=== PATIENT | female | born 1935 | race Caucasian/White ===

== ENCOUNTER 2020-01-22 12:19 | Outpatient (CLI) | payer MEDICARE, SELFPAY ==
[2020-01-22 13:19] LABS: Basophils Absolute Auto 0.1 K/mm3 (0.0-0.1); Basophils Percent Auto 0.9 % (0.2-1.2); Eosinophils Absolute Auto 0.7 K/mm3 (0-0.3); Eosinophils Percent Auto 9.6 % (0-4.4); Hematocrit 32.1 % (37.0-47.0); Hemoglobin 9.9 g/dL (12.0-15.0); Immature Granulocyte Absolute 0.03 K/mm3 (0.00-0.031); Immature Granulocyte Percent A 0.4 % (0-0.5); Lymphocytes Absolute Auto 1.42 K/mm3 (0.9-3.2); Lymphocytes Percent Auto 19.1 % (18.3-44.2); Mean Corpuscular HGB Conc 30.8 g/dl (32-36); Mean Corpuscular Hemoglobin 20.8 pg (26-34); Mean Corpuscular Volume 67.4 fl (80-100); Mean Platelet Volume 11.2 fl (7.4-10.4); Monocytes Absolute Auto 0.6 K/mm3 (0.1-0.6); Monocytes Percent Auto 7.9 % (2.6-8.5); Neutrophils Absolute Auto 4.6 K/mm3 (1.3-6.7); Neutrophils Percent Auto 62.1 % (45.5-73.1); Platelet Count Result 407 k/mm3 (150-375); Red Blood Count 4.76 M/mm3 (4.2-5.4); Red Cell Distribution Width 15.2 % (11.5-14.5); White Blood Count 7.4 K/mm3 (4.5-10.0)
[2020-01-22 13:32] LABS: Albumin Level 4.2 g/dL (3.5-5.1); Alkaline Phosphatase 100 U/L (38-126); Anion Gap 6 mmol/L (8-16); Aspartate Amino Transferase 15 U/L (14-36); Bilirubin,Total 1.5 mg/dL (0.2-1.3); Blood Urea Nitrogen 22 mg/dL (7-17); Calcium 9.1 mg/dL (8.4-10.2); Carbon Dioxide 28 mmol/L (22-30); Chloride 102 mmol/L (98-107); Cholesterol 173 mg/dL (0-200); Estimated Glomerular Filt Rate > 60; Glucose 101 mg/dL (65-105); HDL Direct 55 mg/dL; Potassium 4.1 mmol/L (3.4-5.0); Sodium 136 mmol/L (137-145); Triglycerides 81 mg/dL (<150)
[2020-01-22 13:40] LABS: Alanine Aminotransferase < 4 U/L (4-35)
[2020-01-22 13:51] LABS: LDL Cholesterol Direct 87 mg/dL
== END 2020-01-22 12:20 | disposition home or self-care (01) ==
PROVIDERS: PCP Internal Medicine; Visit Provider Clinical Nurse Specialist
DX: I10 Essential (primary) hypertension (principal)
CPT/HCPCS: 36415; 80053; 80061; 85025

== ENCOUNTER 2020-06-09 10:24 | Outpatient (CLI) | payer MEDICARE, SELFPAY ==
[2020-06-09 10:45] LABS: Basophils Absolute Auto 0.1 K/mm3 (0.0-0.1); Basophils Percent Auto 0.7 % (0.2-1.2); Eosinophils Absolute Auto 0.7 K/mm3 (0-0.3); Eosinophils Percent Auto 10.1 % (0-4.4); Hematocrit 32.1 % (37.0-47.0); Hemoglobin 10.1 g/dL (12.0-15.0); Immature Granulocyte Absolute 0.03 K/mm3 (0.00-0.031); Immature Granulocyte Percent A 0.4 % (0-0.5); Lymphocytes Absolute Auto 1.52 K/mm3 (0.9-3.2); Mean Corpuscular HGB Conc 31.5 g/dl (32-36); Mean Corpuscular Hemoglobin 21.1 pg (26-34); Mean Corpuscular Volume 67.2 fl (80-100); Mean Platelet Volume 9.9 fl (7.4-10.4); Monocytes Absolute Auto 0.5 K/mm3 (0.1-0.6); Neutrophils Absolute Auto 4.4 K/mm3 (1.3-6.7); Neutrophils Percent Auto 60.8 % (45.5-73.1); Platelet Count Result 370 k/mm3 (150-375); Red Blood Count 4.78 M/mm3 (4.2-5.4); Red Cell Distribution Width 15.5 % (11.5-14.5); White Blood Count 7.3 K/mm3 (4.5-10.0)
[2020-06-09 10:54] LABS: Albumin Level 3.8 g/dL (3.5-5.1); Alkaline Phosphatase 94 U/L (38-126); Anion Gap 8 mmol/L (8-16); Aspartate Amino Transferase 16 U/L (14-36); Bilirubin,Total 1.6 mg/dL (0.2-1.3); Blood Urea Nitrogen 19 mg/dL (7-17); Calcium 8.7 mg/dL (8.4-10.2); Carbon Dioxide 28 mmol/L (22-30); Chloride 101 mmol/L (98-107); Cholesterol 167 mg/dL (0-200); Estimated Glomerular Filt Rate > 60; Glucose 100 mg/dL (65-105); HDL Direct 61 mg/dL; Sodium 137 mmol/L (137-145); Triglycerides 73 mg/dL (<150)
[2020-06-09 10:55] LABS: Alanine Aminotransferase < 6 U/L (4-35)
[2020-06-09 11:05] LABS: LDL Cholesterol Direct 78 mg/dL
== END 2020-06-09 10:25 | disposition home or self-care (01) ==
LOC: ANHLAB 10:26
PROVIDERS: PCP Internal Medicine; Visit Provider Clinical Nurse Specialist
DX: I10 Essential (primary) hypertension (principal)
CPT/HCPCS: 36415; 80053; 80061; 85025

== ENCOUNTER 2020-12-14 12:58 | Outpatient (CLI) | payer MEDICARE, SELFPAY | END 2020-12-14 12:59 | disposition home or self-care (01) | PROVIDERS: PCP Internal Medicine; Visit Provider Internal Medicine | DX: H90.3 Sensorineural hearing loss, bilateral (principal) | CPT/HCPCS: 92557; 92567 ==

== ENCOUNTER 2021-07-07 09:28 | Outpatient (CLI) | payer MEDICARE, SELFPAY ==
[2021-07-07 10:26] LABS: Basophils Absolute Auto 0.1 K/mm3 (0.0-0.1); Basophils Percent Auto 1.2 % (0.2-1.2); Eosinophils Absolute Auto 1.6 K/mm3 (0-0.3); Eosinophils Percent Auto 21.8 % (0-4.4); Hematocrit 34.2 % (37.0-47.0); Hemoglobin 10.6 g/dL (12.0-15.0); Immature Granulocyte Absolute 0.02 K/mm3 (0.00-0.031); Immature Granulocyte Percent A 0.3 % (0-0.5); Lymphocytes Absolute Auto 1.77 K/mm3 (0.9-3.2); Lymphocytes Percent Auto 23.8 % (18.3-44.2); Mean Corpuscular Hemoglobin 21.4 pg (26-34); Mean Corpuscular Volume 69.1 fl (80-100); Mean Platelet Volume 10.6 fl (7.4-10.4); Monocytes Absolute Auto 0.5 K/mm3 (0.1-0.6); Monocytes Percent Auto 6.7 % (2.6-8.5); Neutrophils Absolute Auto 3.4 K/mm3 (1.3-6.7); Neutrophils Percent Auto 46.2 % (45.5-73.1); Platelet Count Result 396 k/mm3 (150-375); Red Blood Count 4.95 M/mm3 (4.2-5.4); Red Cell Distribution Width 15.7 % (11.5-14.5); White Blood Count 7.4 K/mm3 (4.5-10.0)
[2021-07-07 10:39] LABS: Albumin Level 4.1 g/dL (3.5-5.1); Alkaline Phosphatase 75 U/L (38-126); Anion Gap 7 mmol/L (8-16); Aspartate Amino Transferase 23 U/L (14-36); Bilirubin,Total 1.3 mg/dL (0.2-1.3); Blood Urea Nitrogen 29 mg/dL (7-17); Calcium 8.8 mg/dL (8.4-10.2); Carbon Dioxide 27 mmol/L (22-30); Chloride 107 mmol/L (98-107); Cholesterol 181 mg/dL (0-200); Estimated Glomerular Filt Rate > 60; Glucose 97 mg/dL (65-110); HDL Direct 59 mg/dL; Potassium 4.1 mmol/L (3.4-5.0); Sodium 141 mmol/L (137-145); Triglycerides 68 mg/dL (<150)
[2021-07-07 10:50] LABS: LDL Cholesterol Direct 86 mg/dL
[2021-07-07 11:20] LABS: Alanine Aminotransferase < 6 U/L (4-35)
[2021-07-07 11:26] LABS: Vitamin D 25 Hydroxy 34.7 ng/mL
== END 2021-07-07 09:29 | disposition home or self-care (01) ==
PROVIDERS: PCP Internal Medicine; Visit Provider Nurse Practitioner
DX: E55.9 Vitamin D deficiency, unspecified (principal); I10 Essential (primary) hypertension; G20 Parkinson's disease
CPT/HCPCS: 36415; 80053; 80061; 82306; 85025

== ENCOUNTER 2021-08-30 11:53 | Emergency (ER) | payer MEDICARE, SELFPAY ==
[2021-08-30] VITALS (7 sets, daily range): BP systolic 145–192; BP diastolic 74–101; PULSE 75–97; RESP 19–23; TEMP 36.9; O2SAT 99
--- NOTE | ~2021-08-30 | XR_ITS ---
EXAMINATION: XR chest 1V portable DATE: 08/30/2021 12:47 INDICATION: Cough and weakness. TECHNIQUE: A single frontal view of the chest was obtained. COMPARISON: Chest single view 09/29/2018, CT abdomen and pelvis 09/29/2018 FINDINGS: There is mild atelectasis in left lower lung zone. No pleural effusion or pneumothorax. The heart size is normal. IMPRESSION: 1. Mild atelectasis in left lower lung zone. Reviewed, dictated and finalized at location B.
--- NOTE | ~2021-08-30 | CT_ITS ---
EXAMINATION: CT brain wo con DATE: 08/30/2021 13:15 INDICATION: Dizziness. TECHNIQUE: Computed tomography (CT) of the head was performed without intravenous contrast. The mA wa s adjusted according to patient size. Iterative reconstruction technique was employed. The dose-lengt h product was 605.33 mGy-cm. COMPARISON: None FINDINGS: There are scattered areas of low attenuation in the cerebral white matter. There is no intr acranial hemorrhage, acute infarction, or abnormal intracranial mass lesion. The ventricles are hansel l in size. There is mild mucosal thickening in the ethmoid sinuses. There is a small left mastoid eff usion. There are likely changes of left ocular lens replacement surgery. IMPRESSION: 1. Moderate nonspecific cerebral white matter disease, which likely represents chronic small vessel i schemic disease. Reviewed, dictated and finalized at location B. IMPRESSION: 1. Moderate nonspecific cerebral white matter disease, which likely represents chronic small vessel ischemic disease.
--- NOTE | 2021-08-30 12:09 | ECG_ITS ---
Measurements Intervals [place] Rate: 84 P: DC: 0 QRS: -4 QRSD: 78 T: 31 QT: 369 QTc: 438 Interpretive Statements ATRIAL FIBRILLATION MODERATE VOLTAGE CRITERIA FOR LVH, CONSIDER NORMAL VARIANT [MEETS CRITERIA IN ONE OF: R(aVL), S(V1), R(V5), R(V5/V6)+S(V1)] NONSPECIFIC ST & T-WAVE ABNORMALITY ABNORMAL RHYTHM ECG NO PREVIOUS ECG AVAILABLE FOR COMPARISON Electronically Signed On 08-30-2021 14:59:25 CDT by Bakari Lott M.D.
[2021-08-30] MEDS: SODIUM CHLORIDE 0.9% IV 1,000 ML 999 ML IV CONT (12:30)
--- NOTE | 2021-08-30 12:31 | ED.WEAKNESS ---
HPI - Weakness General Chief complaint: Weakness Stated complaint: weak, lightheaded, dizzy Source: RN notes reviewed History of Present Illness HPI Narrative: Patient presents emergency department from home for weakness. Patient states that she has been having intermittent weakness and dizziness over the past 1 week she is scheduled to have a appoint with her PCP this morning fell 2 weeks ago. Per the patient she feels fine at this time but her daughter was the one who called the ambulance and felt that she needed to come for evaluation currently seen in bed she denies any dizziness or weakness she denies any chest pain shortness of breath abdominal pain nausea vomiting denies any recent illness Related Data Allergies Allergy/AdvReac Type Severity Reaction Status Date / Time epinephrine Allergy Unknown itching Verified 08/30/21 12:04 Sulfa (Sulfonamide Allergy Unknown Hives Verified 08/30/21 12:04 Antibiotics) Review of Systems Review of Systems: Gen.: Denies fevers or chills Eyes: Denies eye pain or visual change ENT: Denies congestion Respiratory: Denies shortness of breath or cough CV: Denies chest pain or palpitations GI: Denies abdominal pain nausea, emesis or diarrhea Musculoskeletal: Denies back pain or muscle pain Neuro: See HPI Skin: Denies rash Except as documented, all other systems reviewed and negative [facility] Past Medical History Medical History Hypertension Parkinson disease Thalassemia Surgical History Surgical History H/O colectomy H/O: hysterectomy Hx of appendectomy Knee joint replacement status Family History Family History Father Family history of malignant neoplasm Mother Family history of malignant neoplasm of breast in first degree relative Grandparent Diabetes mellitus Social History Social History Smoking status: Never smoker Alcohol intake: never Substance use: never Exam Narrative: APPEARANCE: No acute distress, nontoxic, resting in bed EYES: EOMI, PERRL HEENT: Normocephalic, atraumatic, OMM RESPIRATORY: No respiratory distress Clear to auscultation bilaterally with no rhonchi wheezing or rales. CARDIOVASCULAR: Regular rate and rhythm without murmurs rubs or gallops. ABDOMINAL: Soft, nontender, nondistended, no rebound or guarding MUSCULOSKELETAl: Moves all extremities. No clubbing, cyanosis or edema. NEURO: Awake and alert x 3. Following commands, speech normal, no focal deficits, muscle strength 5 out of 5 bilateral upper and lower extremities SKIN:: Warm, dry. No rashes lesions or abrasions PSYCHIATRIC: Normal affect/mood, Course Course Emergency Course: Patient will get up and walk to the restroom with no difficulty states she feels fine at this time Discussed with patient results of workup and diagnosis. Discussed need for follow-up with primary care, proper use of medication, and reasons to return to the emergency department. Patient understands and agrees to current treatment plan Vital Signs Vital signs: Vital Signs Temperature 98.4 F 08/30/21 11:52 Pulse Rate 83 08/30/21 11:52 Respiratory Rate 20 08/30/21 11:52 Blood Pressure 192/101 H 08/30/21 11:52 Pulse Oximetry 99 08/30/21 11:52 Temperature 98.4 F 08/30/21 11:52 Pulse Rate 97 08/30/21 13:30 Respiratory Rate 23 H 08/30/21 13:01 Blood Pressure 145/95 H 08/30/21 13:30 Pulse Oximetry 99 08/30/21 13:01 MDM - Weakness Lab Data Result diagrams: 08/30/21 12:23 08/30/21 12:23 Labs: Lab Results 08/30/21 08/30/21 08/30/21 Range/Units 12:15 12:23 12:23 WBC 6.4 (4.5-10.0) K/mm3 RBC 5.00 (4.2-5.4) M/mm3 Hgb 10.7 L (12.0-15.0) g/dL Hct 33.3 L (37.0-47.0) % MCV 66.6 L (80-100) fl MCH 21.4 L (26-3
[2021-08-30 12:34] LABS: Appearance Urine Clear (Clear); Bilirubin Urine Negative (Negative); Blood Urine Negative (Negative); Color Urine Yellow (Yellow); Glucose Urine UA Negative (Negative); Ketones Urine Negative (Negative); Leukocyte Esterase Ur Negative LEU/UL (Negative); Nitrate Urine Negative (Negative); Protein Urine Negative (Negative); Specific Grav Ur 1.015 (1.001-1.035); Urobilinogen Urine 0.2 mg/dL (<2.0)
[2021-08-30 12:36] LABS: Basophils Absolute Auto 0.1 K/mm3 (0.0-0.1); Basophils Percent Auto 0.8 % (0.2-1.2); Eosinophils Absolute Auto 0.3 K/mm3 (0-0.3); Eosinophils Percent Auto 4.3 % (0-4.4); Hematocrit 33.3 % (37.0-47.0); Hemoglobin 10.7 g/dL (12.0-15.0); Immature Granulocyte Absolute 0.02 K/mm3 (0.00-0.031); Immature Granulocyte Percent A 0.3 % (0-0.5); Lymphocytes Absolute Auto 1.25 K/mm3 (0.9-3.2); Lymphocytes Percent Auto 19.4 % (18.3-44.2); Mean Corpuscular HGB Conc 32.1 g/dl (32-36); Mean Corpuscular Hemoglobin 21.4 pg (26-34); Mean Corpuscular Volume 66.6 fl (80-100); Mean Platelet Volume 10.4 fl (7.4-10.4); Monocytes Absolute Auto 0.4 K/mm3 (0.1-0.6); Monocytes Percent Auto 6.7 % (2.6-8.5); Neutrophils Absolute Auto 4.4 K/mm3 (1.3-6.7); Neutrophils Percent Auto 68.5 % (45.5-73.1); Platelet Count Result 438 k/mm3 (150-375); Red Cell Distribution Width 15.9 % (11.5-14.5); White Blood Count 6.4 K/mm3 (4.5-10.0)
[2021-08-30 12:39] LABS: Alanine Aminotransferase 22 U/L (4-35); Albumin Level 4.3 g/dL (3.5-5.1); Alkaline Phosphatase 79 U/L (38-126); Anion Gap 5 mmol/L (8-16); Aspartate Amino Transferase 28 U/L (14-36); Bilirubin,Total 1.8 mg/dL (0.2-1.3); Blood Urea Nitrogen 22 mg/dL (7-17); Calcium 9.2 mg/dL (8.4-10.2); Carbon Dioxide 28 mmol/L (22-30); Chloride 105 mmol/L (98-107); Estimated CRCL calculation 39 ml/min; Estimated Glomerular Filt Rate > 60; Glucose 108 mg/dL (65-110); Potassium 4.1 mmol/L (3.4-5.0); Sodium 138 mmol/L (137-145)
[2021-08-30 12:40] LABS: Add Urine Microscopic? NO
--- NOTE | 2021-08-30 13:34 | PC.NURSE ---
Pt ambulatory to the bathroom with no difficulty
--- NOTE | 2021-08-30 13:55 | PC.NURSE ---
Attempted to call daughter to come and pick her up. No answer. left message
== END 2021-08-30 14:28 | disposition home or self-care (01) ==
PROVIDERS: Emergency Provider Emergency Medicine; PCP Internal Medicine
DX: R42 Dizziness and giddiness (principal); I10 Essential (primary) hypertension; G20 Parkinson's disease; Z96.659 Presence of unspecified artificial knee joint; R90.82 White matter disease, unspecified; I48.91 Unspecified atrial fibrillation; R94.31 Abnormal electrocardiogram [ECG] [EKG]
CPT/HCPCS: 36415; 70450; 71045; 80053; 81003; 85025; 93005; 96360; 99284; J7030

== ENCOUNTER 2023-11-27 14:20 | Outpatient (CLI) | payer MEDICARE, SELFPAY ==
[2023-11-27 14:59] LABS: Basophils Absolute Auto 0.1 K/mm3 (0.0-0.1); Basophils Percent Auto 0.8 % (0.2-1.2); Eosinophils Absolute Auto 0.7 K/mm3 (0-0.3); Eosinophils Percent Auto 9.1 % (0-4.4); Hematocrit 34.6 % (37.0-47.0); Hemoglobin 10.6 g/dL (12.0-15.0); Immature Granulocyte Absolute 0.02 K/mm3 (0.00-0.031); Immature Granulocyte Percent A 0.3 % (0-0.5); Lymphocytes Absolute Auto 1.53 K/mm3 (0.9-3.2); Lymphocytes Percent Auto 21.2 % (18.3-44.2); Mean Corpuscular HGB Conc 30.6 g/dl (32-36); Mean Corpuscular Hemoglobin 21.3 pg (26-34); Mean Corpuscular Volume 69.5 fl (80-100); Mean Platelet Volume 10.5 fl (7.4-10.4); Monocytes Absolute Auto 0.6 K/mm3 (0.1-0.6); Monocytes Percent Auto 8.2 % (2.6-8.5); Neutrophils Absolute Auto 4.4 K/mm3 (1.3-6.7); Neutrophils Percent Auto 60.4 % (45.5-73.1); Platelet Count Result 318 k/mm3 (150-375); Red Blood Count 4.98 M/mm3 (4.2-5.4); Red Cell Distribution Width 15.8 % (11.5-14.5); White Blood Count 7.2 K/mm3 (4.5-10.0)
[2023-11-27 15:23] LABS: Alkaline Phosphatase 78 U/L (38-126); Anion Gap 8 mmol/L (4-12); Aspartate Amino Transferase 24 U/L (14-36); Bilirubin,Total 2.2 mg/dL (0.2-1.3); Blood Urea Nitrogen 24 mg/dL (7-17); Calcium 9.3 mg/dL (8.4-10.2); Carbon Dioxide 29 mmol/L (22-30); Chloride 102 mmol/L (98-107); Estimated Glomerular Filt Rate > 60; Glucose 132 mg/dL (65-110); Potassium 3.7 mmol/L (3.4-5.0); Sodium 139 mmol/L (137-145)
[2023-11-27 15:29] LABS: Alanine Aminotransferase < 6 U/L (6-35)
[2023-11-27 16:18] LABS: Platelet Estimate Adequate (Adequate)
[2023-11-27 16:19] LABS: Schistocytes None Seen
[2023-11-27 16:20] LABS: Anisocytosis 2+; Microcytosis 1+ (NORMAL)
[2023-11-28 04:00] LABS: Folic Acid 13.7 ng/mL (2.76->20)
== END 2023-11-27 14:21 | disposition home or self-care (01) ==
LOC: ANHGOSHLAB 14:22
PROVIDERS: PCP Internal Medicine; Visit Provider Nurse Practitioner
DX: Z13.29 Encounter for screening for other suspected endocrine disorder (principal); R41.3 Other amnesia
CPT/HCPCS: 36415; 80053; 82607; 82746; 84443; 85025

== ENCOUNTER 2024-03-27 14:58 | Outpatient (CLI) | payer MEDICARE, SELFPAY ==
[2024-03-27 19:43] LABS: Basophils Absolute Auto 0.1 K/mm3 (0.0-0.1); Basophils Percent Auto 0.6 % (0.2-1.2); Eosinophils Absolute Auto 0.5 K/mm3 (0-0.3); Eosinophils Percent Auto 6.1 % (0-4.4); Hematocrit 32.5 % (37.0-47.0); Hemoglobin 10.2 g/dL (12.0-15.0); Immature Granulocyte Absolute 0.03 K/mm3 (0.00-0.031); Immature Granulocyte Percent A 0.4 % (0-0.5); Immature Platelet Fraction Pct 5.5 % (0.9-11.2); Lymphocytes Absolute Auto 1.08 K/mm3 (0.9-3.2); Lymphocytes Percent Auto 13.6 % (18.3-44.2); Mean Corpuscular HGB Conc 31.4 g/dl (32-36); Mean Corpuscular Hemoglobin 21.7 pg (26-34); Monocytes Absolute Auto 0.5 K/mm3 (0.1-0.6); Monocytes Percent Auto 6.7 % (2.6-8.5); Neutrophils Absolute Auto 5.8 K/mm3 (1.3-6.7); Neutrophils Percent Auto 72.6 % (45.5-73.1); Platelet Count Result 271 k/mm3 (150-375); Red Blood Count 4.71 M/mm3 (4.2-5.4); White Blood Count 7.9 K/mm3 (4.5-10.0)
[2024-03-27 19:51] LABS: Albumin Level 3.6 g/dL (3.5-5.1); Alkaline Phosphatase 120 U/L (38-126); Anion Gap 5 mmol/L (4-12); Aspartate Amino Transferase 20 U/L (14-36); Bilirubin,Total 2.4 mg/dL (0.2-1.3); Blood Urea Nitrogen 20 mg/dL (7-17); Calcium 8.9 mg/dL (8.4-10.2); Carbon Dioxide 31 mmol/L (22-30); Chloride 100 mmol/L (98-107); Estimated Glomerular Filt Rate > 60; Glucose 119 mg/dL (65-110); Potassium 3.8 mmol/L (3.4-5.0); Sodium 136 mmol/L (137-145)
[2024-03-27 20:14] LABS: Alanine Aminotransferase < 6 U/L (6-35)
[2024-03-27 20:20] LABS: Platelet Estimate Adequate (Adequate)
[2024-03-27 20:21] LABS: Anisocytosis 2+; Schistocytes 2+
[2024-03-27 20:22] LABS: Microcytosis 1+ (NORMAL)
[2024-03-27 20:23] LABS: Acanthocytes 1+
[2024-03-27 20:24] LABS: Hypochromasia 1+
[2024-03-27 20:56] LABS: Add Urine Microscopic? YES; Appearance Urine Clear (Clear); Bacteria Urine None Seen /hpf; Bilirubin Urine 1+ (Negative); Blood Urine Negative (Negative); Color Urine Dark Yellow (Yellow); Glucose Urine UA Negative (Negative); Ketones Urine Trace mg/dL (Negative); Leukocyte Esterase Ur 1+ LEU/UL (Negative); Need Manual Microscopic Reviewed; Nitrate Urine Negative (Negative); Non Pathogenic Casts 0-2; Protein Urine 1+ mg/dL (Negative); RBC Urine 0-2 /hpf (0-2); Specific Grav Ur 1.034 (1.001-1.035); Squamous Epithelial Cell Urine None Seen /hpf (Few)
== END 2024-03-27 14:59 | disposition home or self-care (01) ==
LOC: ANHGOSHLAB 14:59
PROVIDERS: PCP Internal Medicine; Visit Provider Nurse Practitioner
DX: R63.4 Abnormal weight loss (principal)
CPT/HCPCS: 36415; 80053; 81001; 85025; 85055

== ENCOUNTER 2024-03-27 15:15 | Outpatient (CLI) | payer MEDICARE, SELFPAY ==
--- NOTE | ~2024-03-27 | XR_ITS ---
CHEST RADIOGRAPH, PA AND LATERAL CLINICAL HISTORY: R63.4 - Abnormal weight loss . COMPARISON: 08/30/2021 TECHNIQUE: PA and lateral views of the chest. FINDINGS The cardiomediastinal silhouette is unremarkable. The lungs are clear. Incidental notation is made of pectus excavatum. Remaining visualized osseous structures and soft tissues are otherwise unremarkable. IMPRESSION: No focal infiltrate or effusion. Reviewed, dictated and finalized at location A. H BOOKER
== END 2024-03-27 15:16 | disposition home or self-care (01) ==
LOC: GOSHIMG 15:16
PROVIDERS: PCP Internal Medicine; Visit Provider Nurse Practitioner
DX: R63.4 Abnormal weight loss (principal)
CPT/HCPCS: 71046

== ENCOUNTER 2024-06-14 14:36 | Outpatient (CLI) | payer MEDICARE, SELFPAY ==
[2024-06-14 19:28] LABS: Alanine Aminotransferase 6 U/L (6-35); Albumin Level 3.6 g/dL (3.5-5.1); Alkaline Phosphatase 104 U/L (38-126); Anion Gap 10 mmol/L (4-12); Aspartate Amino Transferase 14 U/L (14-36); Bilirubin,Total 3.1 mg/dL (0.2-1.3); Blood Urea Nitrogen 24 mg/dL (7-17); Calcium 8.8 mg/dL (8.4-10.2); Carbon Dioxide 27 mmol/L (22-30); Chloride 104 mmol/L (98-107); Estimated Glomerular Filt Rate > 60; Glucose 104 mg/dL (65-110); Potassium 4.1 mmol/L (3.4-5.0); Sodium 141 mmol/L (137-145)
[2024-06-14 19:38] LABS: NT Pro B Type Natriuretic Pept 5840 pg/mL (19.9-100)
== END 2024-06-14 14:37 | disposition home or self-care (01) ==
LOC: ANHGOSHLAB 14:36
PROVIDERS: PCP Internal Medicine; Visit Provider Student in an Organized Health Care Education/Training Program
DX: M79.89 Other specified soft tissue disorders (principal)
CPT/HCPCS: 36415; 80053; 83880

== ENCOUNTER 2024-06-28 13:36 | Outpatient (CLI) | payer MEDICARE, MEDICAID, SELFPAY ==
--- NOTE | 2024-06-28 13:49 | ECHO_ITS ---
Patient Info Name: Haven Mckoy Age: 88 years : 1935 Gender: Female Ht: 64 in Wt: 137 lbs BSA: 1.68 m2 HR: 118 bpm BP: 136 / 85 mmHg Technical Quality: Good Exam Date: 06/28/2024 1:59 PM Exam Location: Echo Lab Patient Status: Outpatient Admit Date: 06/28/2024 Staff Ordering Physician: Brock Horne APRN Cultural Anthropology Professor: Kait Fuller RDCS Attending Provider: Brock Horne APRN Referring Physician: Ozzie GO; Exam Type: CA echo doppler color flow Study Info Indications R06.02 - Shortness of breath Complete two-dimensional, color flow and Doppler transthoracic echocardiogram is performed. Summary 1. Complete two-dimensional, color flow and Doppler transthoracic echocardiogram is performed. 2. Left ventricular chamber dimension is mildly enlarged. 3. Left ventricular systolic function is preserved, estimated at 50-55%. 4. The left ventricular diastolic function is abnormal. 5. e' .07 is abnormal suggestive diastolic dysfunction. E/e' was not measured. 6. Right ventricular systolic function is mildly reduced and with abnormal TAPSE 1.4 cm. 7. Left atrial chamber dimension is severely enlarged. 8. Right atrial chamber dimension is moderately enlarged. 9. There is mild aortic valve sclerosis. 10. There is mild aortic valve regurgitation. 11. The mitral valve has mildly calcified annulus. 12. There is moderate to severe mitral valve regurgitation. 13. There is moderate tricuspid valve regurgitation. 14. Severe pulmonary hypertension, estimated pulmonary arterial systolic pressure is 68 mmHg. 15. The aortic root size at the sinus of Valsalva is moderately dilated. 16. The prox ascending aorta size is moderately dilated. 17. Dilated inferior vena cava with >50% collapse upon inspiration consistent with elevated right atrial pressure, 10 mmHg. Left Ventricle e' .07 is abnormal suggestive diastolic dysfunction. E/e' was not measured. Left ventricular systolic function is preserved, estimated at 50-55%. Left ventricular chamber dimension is mildly enlarged. The left ventricular diastolic function is abnormal. Right Ventricle Right ventricular systolic function is mildly reduced and with abnormal TAPSE 1.4 cm. Right ventricular chamber dimension is normal. Left Atria Left atrial chamber dimension is severely enlarged. Right Atria Right atrial chamber dimension is moderately enlarged. Aortic Valve The aortic valve is trileaflet. There is mild aortic valve sclerosis. There is no aortic valve stenosis. There is mild aortic valve regurgitation. Pulmonic Valve There is no pulmonic regurgitation. Mitral Valve The mitral valve has mildly calcified annulus. There is no mitral valve stenosis. There is moderate to severe mitral valve regurgitation. Tricuspid Valve There is moderate tricuspid valve regurgitation. Severe pulmonary hypertension, estimated pulmonary arterial systolic pressure is 68 mmHg. Pericardium/Pleural There is no pericardial effusion. Inferior Vena Cava Dilated inferior vena cava with >50% collapse upon inspiration consistent with elevated right atrial pressure, 10 mmHg. Aorta The aortic root size at the sinus of Valsalva is moderately dilated. The prox ascending aorta size is moderately dilated. Left Ventricular Outflow Tract Name Value Normal LVOT 2D LVOT Diameter 2.0 cm LVOT Doppler LVOT Peak Gradient 9 mmHg LVOT Mean Gradient 4 mmHg LVOT VTI 25 cm LVOT VTI/AV VTI Ratio 1.0 LVOT Stroke Volume 74 ml LVOT CO 8.7 l/min LVOT CI 5.1 l/min/m2 Pulmonic Valve Name Value Normal RVOT Doppler RVOT Peak Gradient 1 mmHg PV Doppler PV Peak Gradient 3 mmHg Mitral Valve Name Value Normal MV Doppler MV Peak Gradient 20 mmHg MV Mean Gradient 5 mmHg MV PHT 41 ms MV Area (PHT) 5.4 cm2 4.0-5.0 MV Area (Cont Eq VTI) 2.6 cm2 MV Regurgitation Doppler MR Peak Gradient 123 mmHg Tricuspid Valve Name Value Normal TV Regurgitation Doppler TR Peak Velocity 380 cm/s TR Peak Gradient 58 mmHg Estimated PAP/RSVP RA Pressure 10 mmHg <=5 PA Systolic Pressure 68 mmHg <36 RV Systolic Pressure 68 mmHg <36 Aorta Name Value Normal Ascending Aorta Ao Root Diameter (MM) 4.4 cm Ao Root Diam Index (MM) 2.6 cm/m2 Aortic Valve Name Value Normal AV Doppler AV Peak Velocity 166 cm/s AV Peak Gradient 11 mmHg AV Mean Gradient 7 mmHg AV VTI 24 cm AV Area (Cont Eq VTI) 3.1 cm2 >=3.0 AV Area (Cont Eq Ulises) 2.7 cm2 AV Regurgitation 2D LVOT Area 3.0 cm2 AV Regurgitation Doppler AR Decel Time 575 ms AR Decel Tift 928 cm/s2 AR PHT 167 ms Ventricles Name Value Normal LV Dimensions 2D/MM IVS Diastolic Thickness (2D) 0.9 cm 0.6-1.0 LVID Diastole (2D) 6.3 cm 3.8-5.2 LVIW Diastolic Thickness (2D) 0.9 cm 0.6-0.9 LVID Systole (2D) 4.9 cm 2.2-3.5 LVOT Diameter 2.0 cm LV Mass (2D Cubed) 237.78 g 67.00-162.00 LV Mass Index (2D Cubed) 141 g/m2 43-95 Relative Wall Thickness (2D) 0.28 LV Fractional Shortening/Ejection Fraction 2D/MM LV Fractional Shortening (2D) 23 % 27-45 LV EF (2D Teicholz) 44 % 54-74 LV Diastolic Volume (4C MOD) 91 ml LV EF (4C MOD) 45 % LV Diastolic Volume (2C MOD) 138 ml LV EF (2C MOD) 48 % LV Diastolic Volume (BP MOD) 118 ml 46-106 LV Diastolic Volume Index (BP MOD) 70 ml/m2 29-61 LV Systolic Volume (BP MOD) 63 ml 14-42 LV Systolic Volume Index (BP MOD) 37 ml/m2 8-24 LV EF (BP MOD) 47 % 54-74 LV Diastolic Length (4C) 7.7 cm LV Systolic Length (4C) 7.0 cm LV Stroke Volume (4C MOD) 41 ml Atria Name Value Normal LA Dimensions LA Dimension (MM) 3.7 cm 2.7-3.8 LA Volume (4C A-L) 125 ml LA Volume (BP A-L) 132 ml RA Dimensions RA Area (4C) 24.9 cm2 <=18.0 Report Signatures
--- OUTSIDE RECORDS SUMMARY | 2024-06-28 13:53 | XMS_ITS | Clinical Summary ---
Author Organization [facility] Address [address] [place] [address] Care Team Providers Care Data Processing Auditor Name Role Phone Luis Almeida DO Primary Care Provider [phone] Allergies Active Allergy Reactions Criticality Noted Date Comments Epinephrine Unknown Medium 11/29/2022 Influenza Virus Vaccine Bivalent Itching Low Metronidazole Nausea only Low Sulfa (Sulfonamide Antibiotics) Rash Medium Medications docusate sodium (COLACE) 100 mg capsuleIndicat ions:constipat ion Take 1 capsule (100 mg total) by mouth as needed for constipation Active acetaminophen (TYLENOL) 500 mg tablet Take 1 tablet (500 mg total) by mouth every 6 (six) hours as needed for pain Active carbidopa-levo dopa (SINEMET) 25-100 mg per tabletIndicati ons:Parkinsoni sm Take 3 tabs at 8:00am, 12:00pm, and 4:00pm. 810 tablet 3 5 Active carbidopa-levo dopa CR (SINEMET CR) 50-200 mg per CR tablet Take 2 tabs at 8:00pm. 180 tablet 3 5 Active gabapentin (NEURONTIN) 100 mg capsule Take 1 capsule (100 mg total) by mouth nightly 90 capsule 3 5 026 Active mirtazapine (REMERON) 15 mg tablet Take 1 tablet (15 mg total) by mouth nightly 90 tablet 3 5 026 Active mirtazapine (REMERON) 15 mg tablet Take 1 tablet (15 mg total) by mouth nightly 90 tablet 3 2 025 Discontin ued(Reord er) gabapentin (NEURONTIN) 100 mg capsule Take 1 capsule (100 mg total) by mouth nightly 90 capsule 3 3 025 Discontin ued(Reord er) carbidopa-levo dopa (SINEMET) 25-100 mg per tabletIndicati ons:Parkinsoni sm Take 3 tabs at 8:00am, 12:00pm, and 4:00pm. 810 tablet 3 4 025 Discontin ued(Reord er) carbidopa-levo dopa CR (SINEMET CR) 50-200 mg per CR tablet Take 2 tabs at 8:00pm. 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 H/o colon cancer in distant past s/p surgery and chemotherapy (cured). H/o several non-invasive skin SCC resections. S/p excisional biopsy on 09/14/22 w/ pathology report from Dr Salcido showing positivity for melanA & SOX10 and margins positive for MIHIR. Tumor has high mitotic activity and ulceration. No invasion of angle on UBM. Repeat biopsy on 12/02/[address] Soares. Pathology with melanoma but clear margins (margins positive for MIHIR). Assessment & Plan (12/16/2022 12:36 PM CDT): 2 weeks post-op appointment. Healing well, vision and exam stable. Plan: - stop moxifloxacin drops - decrease PF to BID OS - RTC 2-3 weeks Assessment & Plan (11/04/2022 4:07 PM CDT): There is extensive pigmentation over the limbus from 12:00-9:00, with extension posteriorly ST and elevated areas at 4:00 and 2:00. Discussed complete excision with cryotherapy vs excision of elevated lesions + or - MMC vs observation alone. Daughter and patient elect for limited excision of elevated lesions followed by MMC gtts to decrease the chances of malignant transformation. Recommend MRI brain, orbits and neck w/ w/o for screening of metastatic disease. If evidence of this, may need to rethink surgical approach. Will plan on conjunctival excision with cryotherapy followed by MMC 0.02% QID OD for 1 week on, 3 weeks off. Messaged patient's PCP regarding possibility of undergoing GA if needed. Assessment & Plan (09/28/2022 2:58 PM CDT): Hx of recent excision of limbal conj tumor 09/14/22 OS and [facility] The path was read as conj melanoma OS Dr. Soares is waiting for the tissue sections to be reviewed Limbal corneal wound healed well with no ED A frond of lightly pigmented epi at 4:00 Limbus No evident feeder vessels Here to see Dr. Mcleod and to discuss about the path Will discuss with Dr. Soares about the next step (Further excision with cryo vs. IFN or MMC) Will call patient for next appointment after reviewing the path RTC 1 month, sooner if needed Assessment & Plan (09/19/2022 4:28 PM CDT): Partially mobile but pedunculated mass w/ large feeder vessels. Possibly FB reaction, not likely COLUMBA per aspect. s/p excisional biopsy on 09/14/22. Path report pending. Healing well with residual pannus at 4;00 Stop maxitrol marlyn OS RTC 1 month, sooner if needed Assessment & Plan (09/14/2022 3:20 PM CDT): Referred from Dr. Mcleod for possible excision OS Hx of possible FB to left eye The mass is partially mobile but pedunculated (not firmly attached Large feeder vessels Will excise under topical anesthesia with path exam Excision performed without difficulty Topical maxitrol marlyn QID OS RTC 3-4 days Chronic bilateral low back pain without sciatica 06/17/2020 Breast skin changes 01/29/2020 Neurogenic orthostatic hypotension 02/13/2019 Parkinson disease 04/03/2018 Assessment & Plan (06/17/2024 12:44 PM EMBEDDED FIRMWARE DEVELOPER): Mrs. Mckoy was doing well overall. She was about the same with her PD. She was in OT and PT although she did not have sessions last week. She had swelling in her legs and followed up with her PCP last week. She plan to have an echo done and is awaiting her lab results. Her EKG was fine. Recommendations Continue OT and PT Increase water intake to at least 64 oz of water a day for constipation Same levodopa IR/CR, gabapentin and mirtazapine Follow up as planned in December with Dr. Headley Fall precaution Assessment & Plan (12/08/2023 12:36 PM CDT): Mrs. Mckoy presented for a follow up. She was doing about the same overall. She was not getting any therapy. She continued to live in assisted living. She was hard of hearing and had hearing aides, but did not wear them. She could benefit from OT and PT. Recommendations Start OT/PT when ready- orders provided today Fall precaution No medication changes today Follow up in 6 months and sooner if needed Stay well hydrated Assessment & Plan (06/09/2023 1:32 PM EMBEDDED FIRMWARE DEVELOPER): Mrs. Mckoy presented for a follow up. She was with her daughter. She was doing well overall. She was better today compared to her last visit. She continued to live in assisted living. She had fair appetite and hydration. She drank protein shakes. She has had an increase in her weight from drinking the protein shakes. She used a walker to ambulate. She was hard of hearing and loss one of her hearing aids. She is scheduled to follow up next week on her hearing. She is scheduled to follow up with her utility inspector today post surgical removal of melanoma. Recommendations Follow up in 6 months No medication changes today Encouraged participation in activities at the assisted living facility NPT at next visit- she was not able to stay today due to eye appt Fall precaution Stay well hydrated Assessment & Plan (11/11/2022 2:25 PM CDT): Mr. Mckoy presented for a follow up via zoom. She was present with her daughter and son in law. She had declined over the past 2 months. She was not drinking much, poor appetite was 130 lbs and dropped to 109 lbs in 2 months), hygiene not as good, memory and thinking not as good and not really engaging. Her urine was negative for UTI. She was drinking boost. She lived at [facility] in assisted living and her daughter would find pills around. She also have malignant melanoma in her eye and plan to have a mri soon to check for metastasis. Her daughter indicated that the PCP office recommended palliative care, but they would have to set it up. I explained to her that I will send a message to our palliative care team to see if they are able to provide service since she is in a facility. We discussed the benefits of her taking her PD medications and having a conversation with the staff to due mouth checks. We also discussed that it was hard to tell if her decline is due to PD, melanoma, something else or a combination of factors. She would benefit from OT/PT. Our office will fax OT/PT orders to [facility] ATTN Alba at [phone] A message will be sent to the palliative care team on if they are able to provide services and I will follow up Scheduling will call her daughter to make appt with me in 2 months Continue to encourage hydration and food/protein shakes No medication changes today Assessment & Plan (12/11/2021 4:16 PM CDT): Ms. Haven Mckoy is a 86 y.o. female, who presents for follow-up for PD. She is worse since the last visit. Her daughter is concerned about a decline in the mobility and cognition. She had an episode of facial pain, which has resolved since. Her daughter found unused pills during the period the pain was at its worse. They are applying to have her living in an assisted living, where her medications would be organized by staff. Her daughter thinks with a pillbox, she has been a bit more compliant. She recognizes a decline in the cognition after her brother, who lived with Haven , and the concurrent social isolation related to the pandemic. We discussed the goals at this point. She should be as compliant with the medication as possible. We will start PT in the facility once she moves so that we can improve the mobility. She should also have an assessment with OT to establish strategies to minimize the changes in cognition. They will contact us when she finally moves to the facility. Plan: - Continue carbidopa-levodopa at the current dose. - Will refer her to PT and OT after transfer to assisted living. Potential medication side effects were discussed during the encounter. Assessment & Plan (09/03/2021 3:19 PM CDT): Mrs. Mckoy presented via zoom with her daughter. She was taken to the ED this past Monday because she had shaking and her work up was negative. She also had neuralgia and facial pain, but this resolved and she denied pain today. Her daughter Tara that was presented indicated that the patient lives with her adult son and she was not sure if she gets her medications as she should as her jeremiah have some mental conditions per Traa. She last had her levodopa 1 day ago. Tara could not find her medication. On exam, she had reduced dexterity (mostly on the left) and bradykinesia. She did not have any facial drooping or slurred speech. It appears that she is not treated for her PD. Recommendations: 1. Refills sent to pharmacy for all all medications. Please take medication as prescribed. Hold off on the sertraline until follow up in 1 month 2. If she had drooping one one side of the face/slurred speech, go to the ED 3. Follow up in one month 4. Fall precaution 5. Discuss arrangements with family for medication management Assessment & Plan (04/28/2021 2:22 PM EMBEDDED FIRMWARE DEVELOPER): Ms. Haven Mckoy is a 85 y.o. female, who presents for follow-up for Parkinson's disease (PD), complicated by motor fluctuations and worsening memory , fatigue . She presents with her daughter who was concerned about her worsening memory, confusion and fatigue/ sleepiness in the last few months and it was getting worse. She also did not eat well and was losing lot of weight . She thought her mood was okay but she has been going through lot of stress . Patient lived with her son. Her daughter was hoping to have her started on some medicine to help her appetite. We will draw thinking labs in clinic today, also test ua and culture to rule out any infection. We will also get NPT testing done today. Can start Mirtazapine 15mg at bedtime to help with appetite and mood. Start home PT and OT, will send referral. Encouraged regular exercises, provided APDA for resources such as meals on wheels or something similar since patient did not cook. Boost/ ensure 3 times a day. Drink lots of water and stay hydrated. Strict fall precautions. Recommendations: 1. NPT in clinic today 2. Labs including UA 3. Encouraged healthy food, Boost/ ensure 3 times a day 4. Mirtazapine 15 mg at bedtime 5. Home health for pt/ ot , referral sent 6. APDA for resources Assessment & Plan (01/20/2021 3:03 PM CDT): Ms. Haven Mckoy is a 85 y.o. female, who presents for follow-up for Parkinson's disease (PD), complicated by motor fluctuations and back pain. 1. PD with motor fluctuations. She is a bit worse since the last visit. There are days her first dose does not last as long and she has more tremor. She does not have dyskinesias. We talked she can take the second dose of levodopa a bit earlier to cover the period that the tremor returns. - Continue carbidopa/levodopa IR and CR at the current dose. She can try to take the second dose of the day a bit earlier if needed. --- Can consider entacapone in the future. - Establish a regular exercise program. 2. Back pain in the setting of PD. She is better since the last visit and does not have more back pain. - Continue to monitor symptoms. Potential medication side effects were discussed during the encounter. Assessment & Plan (06/17/2020 11:03 AM EMBEDDED FIRMWARE DEVELOPER): Ms. Haven Mckoy is a 84 y.o. female, who presents for follow-up for Parkinson's disease (PD), complicated by low back pain. 1. PD. She is about the same since the last visit. She continues to have biomedical field service engineer stiffness and increase in nighttime carbidopa-levodopa CR has not helped. We discussed gabapentin and she was willing to try. - Start gabapentin 100 mg with titration to 3 capsules at bedtime. Titration schedule was given through mychart. Additional doses changes may be needed. - Decrease carbidopa-levodopa CR to 1 tablet at bedtime. - Continue carbidopa/levodopa IR at the current dose. - Establish a regular exercise program. 2. Low back pain in the setting of PD. She is worse since the last visit. This is more problematic in the past month. We talked about gabapentin as a potential medication to help and stretching exercises. - Start gabapentin as above. - Start stretching exercises. If no improvement, will refer her to PT. Potential medication side effects were discussed during the encounter, including biomedical field service engineer sedation with gabapentin. Assessment & Plan (12/16/2019 9:43 AM CDT): Ms. Haven Mckoy is a 84 y.o. female, who presents for follow-up for PD. She continues to do really well. Early in the morning, she feels her first dose does not work as well as the second and third doses - she feels shakier. She does not have wearing off or dyskinesias. Recently she started to have vertigo, which is an old problem for her. Whenever she needs to bend forward, she has a spinning sensation. She mentioned she checked her BP and the SBP was 116, but she was not sure. She has mild lightheadedness when she stands up, but not significant. On examination, she is alert an oriented to person, place and time with normal voice tone. Plan: - Increase carbidopa-levodopa CR 50-200 mg to 2 tablets at bedtime to help with biomedical field service engineer off. - Continue carbidopa-levodopa 25-100 mg at the current dose. - Establish a regular exercise routine. - She should discuss with PCP about the use of BP medication and the vertigo. Assessment & Plan (03/21/2019 4:34 PM EMBEDDED FIRMWARE DEVELOPER): Ms. Haven Mckoy is a 83 y.o. female, who presents for follow-up for PD. She is transferring her care from Dr. Jaramillo. Per chart review, she has had symptoms since 2014 with good response to levodopa therapy. She is doing well except for an internal tremor that comes only in the morning. It is not visible and it does not restrict her activities. She tried rasagiline, but had significant nausea with it and discontinued the drug. Otherwise, her PD motor symptoms are very well controllled and she is completely independent for her ADLs and iADLs. She does not have side effects from levodopa. On examination, she has mild parkinsonism, with choreiform dyskinesia. At this point, she is doing very well. Given the presence of dyskinesia, it does not seem to be worthwhile to increase medications further to improve this inner sensation of tremor. We discussed the importance of exercises to slow disease progression. Finally, she is interest to enroll in studies for memory and PD. Plan: - Continue current medications. - Start regular exercise routine. Will send her information about the APDA. - Will contact the research staff about her interest in studies. Hypertension 11/17/2016 Abnormal findings on diagnostic imaging of melody t 01/06/2014 Encounters Date Type Department Care Team Description 06/27/2024 Telephone [facility] [address] [place] [address] 1st [place] [id number] Reyna Lewis COA 06/17/2024 12:00 PM EMBEDDED FIRMWARE DEVELOPER Office Visit [facility] [address] [place] [address] Advanced Medicine 7th [place] [address] Elizabeth Barriga, EDITH Parkinson disease (HCC) from Last 3 Months Immunizations Name Administration Dates Next Due Influenza, Trivalent, High D ose, Split, Preservative Free, Intramuscular 06/14/2017 Surgical History Surgery Date Site/Laterality Comments CO TOTAL ABDOMINAL HYSTERECT W/WO RMVL TUBE OVARY Hysterectomy - (Added by TW Conv) CO COLECTOMY PARTIAL W/ANASTOMOSIS Partial Colectomy - (Added by TW Conv) APPENDECTOMY TONSILLECTOMY CATARACT EXTRACTION Right Medical History Medical History Date Comments Personal history of other di seases of the nervous system and sense organs History of migraine wi th aura - (Added by TW Conv) Cataract H/O total knee replacement H/O: hysterectomy Parkinson disease (HCC) Hypertension Cancer (CMS/HCC) (HCC) colon Family History Medical History Relation Name Comments Brain cancer Father Family history of malignant neoplasm of brain - (Added by TW Conv) Migraines Father Family history of migraine headaches - (Added by TW Conv) Diabetes Maternal Grandfather Family history of diabetes mellitus - (Added by TW Conv) Hypertension Maternal Grandmother Family history of hypertension - (Added by TW Conv) Brain cancer Mother Family history of malignant neoplasm of brain - (Added by TW Conv) Breast cancer Mother Adenocarcinoma of breast - (Added by TW Conv) Hypertension Mother Family history of hypertension - (Added by TW Conv) Cancer Paternal Grandfather Family history of malignant neoplasm - (Added by TW Conv) Depression Paternal Grandmother Family history of depression - (Added by TW Conv) Parkinsonism Neg Hx Tremor Neg Hx Relation Name Status Comments Father Maternal Grandfather Maternal Grandmother Mother Paternal Grandfather Paternal Grandmother Social History Tobacco Use Types Packs/Day Years Used Date Smoking Tobacco: Never Smokeless Tobacco: Never Tobacco Cessation:Counseling Given: Not Answered Personal Safety Answer Date Recorded Have you ever been in or are you currently in a harmful physical or emotional relationship or is someone making you feel afraid or unsafe? Unable to Answer 12/02/2022 Comments No Sex and Gender Information Value Date Recorded Sex Assigned at Not on file Legal Sex Female 8:35 PM EMBEDDED FIRMWARE DEVELOPER Gender Identity Female 01/25/2022 6:38 PM CDT Sexual Orientation Not on file Obstetrics History Last Filed Vital Signs Vital Sign Reading Time Taken Comments Blood Pressure 130/80 06/17/2024 11:54 AM EMBEDDED FIRMWARE DEVELOPER Pulse 66 06/17/2024 11:54 AM EMBEDDED FIRMWARE DEVELOPER Temperature 36.1 C (97 F) 12/02/2022 10:25 AM CDT Respiratory Rate 17 12/02/2022 3:40 PM CDT Oxygen Saturation 95% 12/02/2022 3:40 PM CDT Inhaled Oxygen Concentration - - Weight 61.7 kg (136 lb) 06/17/2024 11:54 AM EMBEDDED FIRMWARE DEVELOPER Height 162.6 cm (5' 4 ) 06/17/2024 11:54 AM EMBEDDED FIRMWARE DEVELOPER Body Mass Index 23.34 06/17/2024 11:54 AM EMBEDDED FIRMWARE DEVELOPER Plan of Treatment Health Maintenance Due Date Last Done Comments DTaP/Tdap/Td Vaccine (1 - Tdap) 10/24/1946 Hepatitis B Screening 1953 Zoster Vaccine (1 of 2) 1986 Pneumococcal vaccine 65+ (1 of 1 - PCV) 2001 Well Visit 65+ 2001 Fall Risk Assessment 12/03/2023 12/02/2022 Influenza Vaccine (#1) 2024 06/14/2017 Depression Screening 12/07/2024 12/08/2023 Insurance [employer] MEDICARE GOLD [facility] [employer] MEDICARE GOLD [facility] A[employer]NA MEDICARE GOLD Care Teams Data Processing Auditor Relationship Specialty Start Date End Date Luis Almeida DO PCP - General Internal Medicine 01/06/21
--- OUTSIDE RECORDS SUMMARY | 2024-06-28 13:53 | XMS_ITS | Referral Summary ---
Author Organization [facility] al Address [address] [place] [address] Care Team Providers Care Medication Reconciliation Technician Name Role Phone Luis Almeida DO Primary Care Provider +1- [phone] Encounters Date Type Department Care Team Description 06/27/2024 Telephone [facility] Ophthalmology [address] [place] [address] 1st [place] [address] Reyna Lewis COA 06/17/2024 12:00 PM CUSTOMER RESOLUTION SPECIALIST Office Visit [facility] Movement Disorders [address] [place] [address] Advanced Medicine 7th [place] [address] Elizabeth Barriga NP Parkinson disease (HCC) from Last 3 Months Allergies Active Allergy Reactions Criticality Noted Date [...] tumor 09/14/22 OS and was sent to [facility] The path was read as conj melanoma [...] 04/03/2018 Assessment & Plan (06/17/2024 12:44 PM CUSTOMER RESOLUTION SPECIALIST): Mrs. Mckoy was doing well overall. She [...] hydrated Assessment & Plan (06/09/2023 1:32 PM CUSTOMER RESOLUTION SPECIALIST): Mrs. Mckoy presented for a follow up. [...] is scheduled to follow up with her steward/stewardess railroad dining car today post surgical removal of melanoma. Recommendations [...] She was drinking boost. She lived at [facility] in assisted living and her daughter would [...] Our office will fax OT/PT orders to [facility] ATTN Alba at [phone] A message will be sent to the [...] her jeremiah have some mental conditions per Tara. She last had her levodopa 1 day [...] management Assessment & Plan (04/28/2021 2:22 PM CUSTOMER RESOLUTION SPECIALIST): Ms. Haven Mckoy is a 85 y.o. [...] encounter. Assessment & Plan (06/17/2020 11:03 AM CUSTOMER RESOLUTION SPECIALIST): Ms. Haven Mckoy is a 84 y.o. female, who presents for follow-up for Parkinson's disease (PD), complicated by low back pain. 1. PD. She is about the same since the last visit. She continues to have filler wiper stiffness and increase in nighttime carbidopa-levodopa CR has not helped. We discussed gabapentin and she was willing to try. - Start gabapentin 100 mg with titration to 3 capsules at bedtime. Titration schedule was given through [employer]. Additional doses changes may be needed. - [...] effects were discussed during the encounter, including filler wiper sedation with gabapentin. Assessment & Plan (12/16/2019 [...] 2 tablets at bedtime to help with filler wiper off. - Continue carbidopa-levodopa 25-100 mg at the current dose. - Establish a regular exercise routine. - She should discuss with PCP about the use of BP medication and the vertigo. Assessment & Plan (03/21/2019 4:34 PM CUSTOMER RESOLUTION SPECIALIST): Ms. Haven Mckoy is a 83 y.o. [...] on diagnostic imaging of melody t 01/06/2014 Immunizations Name Administration Dates Next Due Influenza, Trivalent, High D ose, Split, Preservative Free, Intramuscular 06/14/2017 Social History Tobacco Use Types Packs/Day Years [...] on file Legal Sex Female 8:35 PM CUSTOMER RESOLUTION SPECIALIST Gender Identity Female 01/25/2022 6:38 PM CDT Sexual Orientation Not on file Last Filed Vital Signs Vital Sign Reading Time Taken Comments Blood Pressure 130/80 06/17/2024 11:54 AM CUSTOMER RESOLUTION SPECIALIST Pulse 66 06/17/2024 11:54 AM CUSTOMER RESOLUTION SPECIALIST Temperature 36.1 C (97 F) 12/02/2022 10:25 AM CDT Respiratory Rate 17 12/02/2022 3:40 PM CDT Oxygen Saturation 95% 12/02/2022 3:40 PM CDT Inhaled Oxygen Concentration - - Weight 61.7 kg (136 lb) 06/17/2024 11:54 AM CUSTOMER RESOLUTION SPECIALIST Height 162.6 cm (5' 4 ) 06/17/2024 11:54 AM CUSTOMER RESOLUTION SPECIALIST Body Mass Index 23.34 06/17/2024 11:54 AM CUSTOMER RESOLUTION SPECIALIST Plan of Treatment Not on file Insurance AETNA MEDICARE GOLD [facility]NA [facility] G[facility] AETNA MEDIC[facility] GOLD Care Teams Medication Reconciliation Technician Relationship Specialty Start Date End Date Luis Almeida DO PCP - General Internal Medicine 01/06/21
--- OUTSIDE RECORDS SUMMARY | 2024-06-28 13:53 | XMS_ITS | Encounter Summary ---
Author Organization [facility] Address [address] [place] [address] Phone Care Team Providers Care Lift Electrician Name Role Phone Luis Almeida DO Primary Care Provider +1- [phone] Encounter Details Date Type Department Care Team (Late st Contact Info) Description 06/27/2024 Telephone [facility] Ophthalmology [address] [place] [address] 1st [place] [address] Reyna Lewis COA Social History Tobacco Use Types Packs/Day Years Used Date Smoking Tobacco: Never Smokeless Tobacco: Never Personal Safety Answer Date Recorded Have you ever been in or are you currently in a harmful physical or emotional relationship or is someone making you feel afraid or unsafe? Unable to Answer 12/02/2022 Comments No Sex and Gender Information Value Date Recorded Sex Assigned at Not on file Legal Sex Female 8:35 PM LAST PULLER Gender Identity Female 01/25/2022 6:38 PM CDT Sexual Orientation Not on file documented as of this encounter Miscellaneous Notes * Telephone Encounter - Reyna Lewis COA - 06/27/2024 8:21 AM CST Called patient due to a missed Dr. Soares appointment. When patient calls back please r/s missedappointment. No overbook 6 month [place]. PULLER documented in this encounter Plan of Treatment Not on file documented as of this encounter Visit Diagnoses Not on filedocumented in this encounter Care Teams Lift Electrician Relationship Specialty Start Date End Date Luis Almeida DO PCP - General Internal Medicine 01/06/21 documented as of this encounter
== END 2024-06-28 13:37 | disposition home or self-care (01) ==
PROVIDERS: PCP Internal Medicine; Visit Provider Student in an Organized Health Care Education/Training Program
DX: R06.02 Shortness of breath (principal); M79.89 Other specified soft tissue disorders
CPT/HCPCS: 93306

== ENCOUNTER 2024-06-28 15:18 | Inpatient (IN) | payer MEDICARE, MEDICAID, SELFPAY ==
[2024-06-28] VITALS (16 sets, daily range): BP systolic 100–156; BP diastolic 58–98; PULSE 79–204; RESP 18–27; TEMP 36.4–36.8; O2SAT 94–100; BMI 20.5
--- NOTE | ~2024-06-28 | US_ITS ---
EXAM: ABDOMEN ULTRASOUND HISTORY: Hyperbilirubinemia COMPARISON: None FINDINGS: LIVER: The liver is heterogeneous in echogenicity and unremarkable in size. The portal vein is patent demonstrating hepatopedal flow. The contour of the liver is smooth. GALLBLADDER: The gallbladder is decompressed with a large lamellated stone measuring 12 mm. Significant thickening of the gallbladder wall, without hyperemia, likely secondary to underdistentio n. BILE DUCTS: Common bile duct measures 4.5mm. PANCREAS: Limited evaluation of the pancreas secondary to overlying bowel gas RIGHT KIDNEY: 9.5 cm. In length. No hydronephrosis or bulky renal calculi. Prominence of the renal pelvis without jessica hydronephrosis. IMPRESSION: Cholelithiasis, without ultrasound evidence of cholecystitis. Prominence of the right renal pelvis without jessica hydronephrosis. Reviewed, dictated and finalized at location A. MANAGER
--- NOTE | ~2024-06-28 | XR_ITS ---
CHEST RADIOGRAPH CLINICAL HISTORY: dyspnea . COMPARISON: 03/27/2024 TECHNIQUE: Single portable view of the chest. FINDINGS The cardiomediastinal silhouette is unremarkable. Blunting of the right costophrenic sulcus suggesting a small right-sided pleural effusion. Increased interstitial markings are identified bilaterally, findings suggesting mild pulmonary vascul ar congestion. The lungs are otherwise clear. IMPRESSION: Mild pulmonary vascular congestion with a small right-sided pleural effusion. Reviewed, dictated and finalized at location A. LING MACHINE OPERATOR
--- NOTE | ~2024-06-28 | US_ITS ---
EXAMINATION: US venous doppler [facility] DATE: 06/28/2024 16:54 INDICATION: Dyspnea. Bilateral lower limb edema. TECHNIQUE: Grayscale ultrasound images without and with compression and Doppler ultrasound images of the bilateral lower extremity veins were obtained. COMPARISON: None. FINDINGS: The visualized portions of right common femoral vein, profunda (deep) femoral vein, femoral vein, pop liteal vein, posterior tibial veins, peroneal veins, gastrocnemius vein and greater saphenous vein ou tflow are patent. The visualized portions of left common femoral vein, profunda femoral vein, femoral vein, popliteal v ein, posterior tibial veins, peroneal veins, gastrocnemius vein and greater saphenous vein outflow ar e patent. IMPRESSION: 1. No deep venous thrombosis in either lower limb. Reviewed, dictated and finalized at location A. INAL WORKER
--- NOTE | ~2024-06-28 | XR_ITS ---
EXAMINATION: XR chest 1V portable DATE: 07/01/2024 10:55 INDICATION: Exacerbation of heart failure. TECHNIQUE: frontal view of the chest was obtained. COMPARISON: Chest radiograph dated 06/28/2024 FINDINGS: Pulmonary vascular congestion and increased interstitial pattern in the bilateral lower lung zones co nsistent with mild pulmonary edema. Airspace opacities in the lower lung zones with blunting at the c ostophrenic angles consistent with small bilateral pleural effusions and associated basilar atelectas is versus less likely pneumonia. No pneumothorax. Cardiomegaly. Enlargement of the central pulmonary arteries consistent with pulmonary arterial hypertension. Calcified right axillary lymph node. IMPRESSION: 1. All pulmonary vascular injection of mild pulmonary edema in the lower lung zones. 2. Small bilateral pleural effusions with mild bibasilar atelectasis versus less likely pneumonia. 3. Cardiomegaly with enlargement of the central pulmonary arteries consistent with pulmonary arterial hypertension. Reviewed, dictated and finalized at location A. FITTER IMPRESSION: 1. All pulmonary vascular injection of mild pulmonary edema in the lower lung z ones. 2. Small bilateral pleural effusions with mild bibasilar atelectasis versus les s likely pneumonia. 3. Cardiomegaly with enlargement of the central pulmonary arteries consistent w ith pulmonary arterial hypertension.
--- OUTSIDE RECORDS SUMMARY | 2024-06-28 15:22 | XMS_ITS | Referral Summary ---
Author Organization [facility] al Address [address] [place] [address] Care Team Providers Care Enrollment Specialist Name Role Phone Luis Almeida DO Primary Care Provider +1- [phone] Encounters Date Type Department Care Team Description 06/27/2024 Telephone [facility] Ophthalmology [address] [place] [address] 1st [place] [address] Reyna Lewis COA 06/17/2024 12:00 PM ROLLER BEARING INSPECTOR Office Visit [facility] Movement Disorders [address] [place] [address] Advanced Medicine 7th [place] [address] Elizabeth Barriga NP Parkinson disease [...] tumor 09/14/22 OS and was sent to [facility] The path was read as conj melanoma [...] 04/03/2018 Assessment & Plan (06/17/2024 12:44 PM ROLLER BEARING INSPECTOR): Mrs. Mckoy was doing well overall. She [...] hydrated Assessment & Plan (06/09/2023 1:32 PM ROLLER BEARING INSPECTOR): Mrs. Mckoy presented for a follow up. [...] is scheduled to follow up with her manifest/order organizer print orders today post surgical removal of melanoma. Recommendations [...] She was drinking boost. She lived at [facility] in assisted living and her daughter would [...] Our office will fax OT/PT orders to [facility] ATTN Alba at [phone] A message will be sent to the [...] management Assessment & Plan (04/28/2021 2:22 PM ROLLER BEARING INSPECTOR): Ms. Haven Mckoy is a 85 y.o. [...] encounter. Assessment & Plan (06/17/2020 11:03 AM ROLLER BEARING INSPECTOR): Ms. Haven Mckoy is a 84 y.o. female, who presents for follow-up for Parkinson's disease (PD), complicated by low back pain. 1. PD. She is about the same since the last visit. She continues to have storage battery inspector stiffness and increase in nighttime carbidopa-levodopa CR has not helped. We discussed gabapentin and she was willing to try. - Start gabapentin 100 mg with titration to 3 capsules at bedtime. Titration schedule was given through [employer]. Additional doses changes may be needed. - [...] effects were discussed during the encounter, including storage battery inspector sedation with gabapentin. Assessment & Plan (12/16/2019 [...] 2 tablets at bedtime to help with storage battery inspector off. - Continue carbidopa-levodopa 25-100 mg at the current dose. - Establish a regular exercise routine. - She should discuss with PCP about the use of BP medication and the vertigo. Assessment & Plan (03/21/2019 4:34 PM ROLLER BEARING INSPECTOR): Ms. Haven Mckoy is a 83 y.o. [...] on file Legal Sex Female 8:35 PM ROLLER BEARING INSPECTOR Gender Identity Female 01/25/2022 6:38 PM CDT Sexual Orientation Not on file Last Filed Vital Signs Vital Sign Reading Time Taken Comments Blood Pressure 130/80 06/17/2024 11:54 AM ROLLER BEARING INSPECTOR Pulse 66 06/17/2024 11:54 AM ROLLER BEARING INSPECTOR Temperature 36.1 C (97 F) 12/02/2022 10:25 AM CDT Respiratory Rate 17 12/02/2022 3:40 PM CDT Oxygen Saturation 95% 12/02/2022 3:40 PM CDT Inhaled Oxygen Concentration - - Weight 61.7 kg (136 lb) 06/17/2024 11:54 AM ROLLER BEARING INSPECTOR Height 162.6 cm (5' 4 ) 06/17/2024 11:54 AM ROLLER BEARING INSPECTOR Body Mass Index 23.34 06/17/2024 11:54 AM ROLLER BEARING INSPECTOR Plan of Treatment Not on file Insurance AETNA MEDICARE GOLD IDPA [facility] AETNA MEDICARE GOLD [facility] [place] [address] AETNA MEDICARE GOLD Care Teams Enrollment Specialist Relationship Specialty Start Date End Date Luis Almeida DO PCP - General Internal Medicine 01/06/21
--- OUTSIDE RECORDS SUMMARY | 2024-06-28 15:22 | XMS_ITS | Clinical Summary ---
Author Organization [facility] Address [address] [place] [address] Care Team Providers Care Process Assistant Name Role Phone Luis Almeida DO Primary Care Provider +1- [phone] Allergies Active Allergy Reactions Criticality Noted Date [...] tumor 09/14/22 OS and was sent to [facility] The path was read as conj melanoma [...] 04/03/2018 Assessment & Plan (06/17/2024 12:44 PM TAILOR FITTER): Mrs. Mckoy was doing well overall. She [...] hydrated Assessment & Plan (06/09/2023 1:32 PM TAILOR FITTER): Mrs. Mckoy presented for a follow up. [...] is scheduled to follow up with her surgery tech today post surgical removal of melanoma. Recommendations [...] She was drinking boost. She lived at [facility] in assisted living and her daughter [...] Our office will fax OT/PT orders to [facility] ATTN Alba at [phone] A message will be sent to the [...] management Assessment & Plan (04/28/2021 2:22 PM TAILOR FITTER): Ms. Haven Mckoy is a 85 y.o. [...] encounter. Assessment & Plan (06/17/2020 11:03 AM TAILOR FITTER): Ms. Haven Mckoy is a 84 y.o. female, who presents for follow-up for Parkinson's disease (PD), complicated by low back pain. 1. PD. She is about the same since the last visit. She continues to have women's basketball coach stiffness and increase in nighttime carbidopa-levodopa CR [...] effects were discussed during the encounter, including women's basketball coach sedation with gabapentin. Assessment & Plan (12/16/2019 [...] 2 tablets at bedtime to help with women's basketball coach off. - Continue carbidopa-levodopa 25-100 mg at the current dose. - Establish a regular exercise routine. - She should discuss with PCP about the use of BP medication and the vertigo. Assessment & Plan (03/21/2019 4:34 PM TAILOR FITTER): Ms. Haven Mckoy is a 83 y.o. [...] Type Department Care Team Description 06/27/2024 Telephone [facility] Ophthalmology [address] [place] [address] 1st [place] [address] Reyna Lewis COA 06/17/2024 12:00 PM TAILOR FITTER Office Visit [facility] Movement Disorders [address] [place] [address] Advanced Medicine 7th [place] [address] Elizabeth Barriga, EDITH Parkinson disease (HCC) from Last 3 Months Immunizations Name Administration Dates Next Due Influenza, Trivalent, High D ose, Split, Preservative Free, Intramuscular 06/14/2017 Surgical History Surgery Date Site/Laterality Comments [place] TOTAL ABDOMINAL HYSTERECT W/WO RMVL TUBE OVARY Hysterectomy - (Added by TW Conv) [place] COLECTOMY PARTIAL W/ANASTOMOSIS Partial Colectomy - (Added [...] on file Legal Sex Female 8:35 PM TAILOR FITTER Gender Identity Female 01/25/2022 6:38 PM CDT Sexual Orientation Not on file Obstetrics History Last Filed Vital Signs Vital Sign Reading Time Taken Comments Blood Pressure 130/80 06/17/2024 11:54 AM TAILOR FITTER Pulse 66 06/17/2024 11:54 AM TAILOR FITTER Temperature 36.1 C (97 F) 12/02/2022 10:25 AM CDT Respiratory Rate 17 12/02/2022 3:40 PM CDT Oxygen Saturation 95% 12/02/2022 3:40 PM CDT Inhaled Oxygen Concentration - - Weight 61.7 kg (136 lb) 06/17/2024 11:54 AM TAILOR FITTER Height 162.6 cm (5' 4 ) 06/17/2024 11:54 AM TAILOR FITTER Body Mass Index 23.34 06/17/2024 11:54 AM TAILOR FITTER Plan of Treatment Health Maintenance Due Date Last Done Comments DTaP/Tdap/Td Vaccine (1 - Tdap) 10/24/1946 Hepatitis B Screening 1954 Zoster Vaccine (1 of 2) 1986 Pneumococcal vaccine 65+ (1 of 1 - PCV) 2001 Well Visit 65+ 2001 Fall Risk Assessment 12/03/2023 12/02/2022 Influenza Vaccine (#1) 2024 06/14/2017 Depression Screening 12/07/2024 12/08/2023 Insurance AETNA MEDICARE GOLD [facility] AETNA MEDICARE GOLD [facility] IDPA AETNA MEDICARE GOLD Care Teams Process Assistant Relationship Specialty Start Date End Date Luis Almeida DO PCP - General Internal Medicine 01/06/21
--- OUTSIDE RECORDS SUMMARY | 2024-06-28 15:22 | XMS_ITS | Encounter Summary ---
Author Organization [facility] Address [address] [place] [address] Phone Care Team Providers Care Product Development Consultant Name Role Phone Luis Almeida DO Primary Care Provider +1- [phone] Encounter Details Date Type Department Care Team (Late st Contact Info) Description 06/27/2024 Telephone [facility] Ophthalmology [address] [place] [address] 1st [place] [address] Reyna Lewis COA Social History [...] on file Legal Sex Female 8:35 PM WOOD FLOUR MILLER Gender Identity Female 01/25/2022 6:38 PM CDT Sexual Orientation Not on file documented as of this encounter Miscellaneous Notes * Telephone Encounter - Reyna Lewis COA - 06/27/2024 8:21 AM CST Called patient due to a missed Dr. Soares appointment. When patient calls back please r/s missedappointment. No overbook 6 month [place]. FLOUR MILLER documented in this encounter Plan of Treatment Not on file documented as of this encounter Visit Diagnoses Not on filedocumented in this encounter Care Teams Product Development Consultant Relationship Specialty Start Date End Date Luis Almeida DO PCP - General Internal Medicine 01/06/21 documented as of this encounter
--- NOTE | 2024-06-28 15:43 | ED_ITS ---
HPI - SOB/Dyspnea General Chief Complaint: Shortness of Breath/Dyspnea <Anna Loomis PA-C - Last Filed: 06/28/24 15:54> Stated Complaint: dyspnea, weeping legs <Anna Loomis PA-C - Last Filed: 06/28/24 15:54> Time Seen by Provider: 06/28/24 16:59 <Anna Loomis PA-C - Last Filed: 06/28/24 15:54> Focused HPI: 88 y/o F with history of hypertension and Parkinson's disease presents to emergency department with daughter at bedside for lower extremity edema for the past similar days. Patient's daughter bedside assist with history. States patient has had increasing lower extremity edema with weeping. We contacted the patient's PCP and had a outpatient echo today. During the echo, the patient was having difficulty breathing and wheezing. She then told her daughter that she is having difficulty breathing for 6 months so they came to the ED for further evaluation. No history of heart failure. She is not taking a diuretic. Patient denies cough or congestion, fevers, abdominal pain, chest pain. Patient has an established appointment with Dr. Amos on July 19. No history of COPD, no smoking history. She does have a remote chest with history of asthma. GENERAL: Well-appearing, well-nourished, and in no acute distress. HEAD: Normocephalic, atraumatic. CHEST: Inspiratory and expiratory wheezing found in all lung tolbert HEART: Regular rate and rhythm.?4+ pitting BLE with clear wheeping NEURO: ?Alert and oriented x3. Patient screened in triage and initial orders placed.? ?Additional care and disposition to be based upon?diagnostic testing and treatment. <Anna Loomis PA-C - Last Filed: 06/28/24 15:54> Focused HPI: 88 y/o F with history of hypertension and Parkinson's disease presents to emergency department with daughter at bedside for lower extremity edema for the past similar days. Patient's daughter bedside assist with history. States patient has had increasing lower extremity edema with weeping. We contacted the patient's PCP and had a outpatient echo today. During the echo, the patient was having difficulty breathing and wheezing. She then told her daughter that she is having difficulty breathing for 6 months so they came to the ED for further evaluation. No history of heart failure. She is not taking a diuretic. Patient denies cough or congestion, fevers, abdominal pain, chest pain. Patient has an established appointment with Dr. Amos on July 19. No history of COPD, no smoking history. She does have a remote chest with history of asthma. GENERAL: Well-appearing, well-nourished, and in no acute distress. HEAD: Normocephalic, atraumatic. CHEST: Inspiratory and expiratory wheezing found in all lung tolbert HEART: Regular rate and rhythm.?4+ pitting BLE with clear wheeping NEURO: ?Alert and oriented x3. Patient screened in triage and initial orders placed.? ?Additional care and disposition to be based upon?diagnostic testing and treatment. <JOLEEN Ty Last Filed: 06/28/24 22:32> Source: patient <JOLEEN Ty Last Filed: 06/28/24 22:32> Mode of arrival: ambulatory <JOLEEN Ty Last Filed: 06/28/24 22:32> Limitations: no limitations <JOLEEN Ty Last Filed: 06/28/24 22:32> History of Present Illness HPI Narrative: Agree with above HPI. Patient is a resident of [facility]. ECHO today showed LV EF 50-55%, diastolic dysfunction, mild valvular disease, severe pHTN. Saw pcp recently for these sx's, outpatient BNP 06/14/24 was 5840. Denies BLE pain, cough, CP. <JOLEEN Ty Last Filed: 06/28/24 22:32> Related Data Home Medications: Home Medications ?Medication ?Instructions ?Recorded ?Confirmed ?Last Taken ?Type carbidopa 25 mg-levodopa 100 mg 1 tablet PO TID 09/08/21 06/28/24 06/28/24 History tablet carbidopa ER 50 mg-levodopa 200 mg 2 tablet PO QHS 09/08/21 06/28/24 06/27/24 History tablet,extended release mirtazapine 15 mg tablet 15 mg PO QHS 06/21/22 06/28/24 06/27/24 History <Anna Loomis PA-C - Last Filed: 06/28/24 15:54> Allergies/Adverse Reactions: Allergies Allergy/AdvReac Type Severity Reaction Status Date / Time epinephrine Allergy Unknown itching Verified 06/28/24 19:50 Sulfa (Sulfonamide Allergy Unknown Hives Verified 06/28/24 19:50 Antibiotics) <Anna Loomis PA-C - Last Filed: 06/28/24 15:54> Review of Systems 2 Review of Systems: All systems reviewed & are unremarkable except as noted in HPI. 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 Essential hypertension Thalassemia Hypertension Parkinson disease <Anna Loomis PA-C - Last Filed: 06/28/24 15:54> Surgical History Surgical History: Surgical History H/O colectomy Knee joint replacement status H/O: hysterectomy Hx of appendectomy <Anna Loomis PA-C - Last Filed: 06/28/24 15:54> Family History Family History: Family History Father Family history of malignant neoplasm Mother Family history of malignant neoplasm of breast in first degree relative Grandparent Diabetes mellitus <Anna Loomis PA-C - Last Filed: 06/28/24 15:54> Social History Social History: Social History Social History: Code status: Surrogate decision maker: Smoking status: Never smoker Alcohol intake: never Substance use: never Lack of Transportation: No Lack of Food: Never True Current Housing: I Have Housing Concerned About Future Housing: No Difficulty Paying Gas/Electric Bills: No Difficulty Paying for Meds: No Currently Unemployed: No Education: Associate Degree Difficulty w/ Childcare or Family Care: No <Anna Loomis PA-C - Last Filed: 06/28/24 15:54> Exam 2 Narrative: GENERAL: Elderly, mildly ill-appearing, non-toxic, in no acute distress. HEAD: Normocephalic, atraumatic. RESPIRATORY: Airway patent, respirations mildly labored. Rhonchi and coarse lung sounds throughout bases bilaterally. Decreased air movement throughout. Some accessory muscle use. CARDIOVASCULAR: Tachycardic with regular rhythm, +murmur, peripheral pulses are intact. ABD: Soft, no appreciable tenderness, normoactive bowel sounds. MUSCULOSKELETAL: Moves all extremities. 3+ pitting edema bilaterally, appears symmetric, serous fluid weeping from extremities. No purulent material. SKIN: Warm, dry, slight jaundice appearance. NEURO: A&O X3. IGIUGIG. Speech clear. Cranial nerves II-XII grossly intact. Steady gait. No ataxic movements. PSYCHIATRIC: Appropriate mood and affect. Normal interaction. <Francine Abreu PA-C - Last Filed: 06/28/24 22:32> Course Vital Signs Vital signs: Vital Signs Pulse Rate 112 H 06/28/24 16:55 Respiratory Rate 27 H 06/28/24 16:55 Temperature 97.8 F 06/28/24 21:54 Pulse Rate 119 H 06/28/24 21:54 Respiratory Rate 24 H 06/28/24 21:54 Blood Pressure 100/74 06/28/24 21:54 Pulse Oximetry 97 06/28/24 21:54 Oxygen Delivery Room Air 06/28/24 19:44 <Anna Loomis PA-C - Last Filed: 06/28/24 15:54> Vital Signs Pulse Rate 112 H 06/28/24 16:55 Respiratory Rate 27 H 06/28/24 16:55 Temperature 97.8 F 06/28/24 21:54 Pulse Rate 119 H 06/28/24 21:54 Respiratory Rate 24 H 06/28/24 21:54 Blood Pressure 100/74 06/28/24 21:54 Pulse Oximetry 97 06/28/24 21:54 Oxygen Delivery Room Air 06/28/24 19:44 <Francine Abreu PA-C - Last Filed: 06/28/24 22:32> MDM - SOB/Dyspnea MDM Narrative Medical decision making narrative: Patient presented to ED from outpatient ECHO with report of BLE swelling/weeping, increased SOB over the past few months. Patient tachycardic, tachypneic upon arrival. Oxygen stable on room air. She does appear mildly ill, somewhat jaundiced appearing as well. Echo today showed LV EF 50-55%, diastolic dysfunction, severe pHTN. No previous diagnosis of CHF. Does not current diuretic therapy. EKG today showing sinus tachycardia, nonspecific ST changes. No evidence of AFib. Chest x-ray with pulmonary vascular congestion, R pleural effusion. Consistent with CHF. Venous Doppler ultrasound BLE negative for DVT. CBC unremarkable. No leukocytosis, stable mild anemia. Nml plts. Nml coags. CMP fairly unremarkable. Stable electrolytes and magnesium. Stable kidney function. Bilirubin today 4.0. Appears to have been slowing uptrending over the past few weeks. She does appear mildly jaundiced. Potentially passive congestion from chf, patient w/o any abdominal tenderness on exam. Influenza A did result positive. Patient is a resident of [facility]. She denies recent cough or fevers. She has been afebrile here. CXR w/o focal infiltrates. BNP today 56964. Given lasix 40mg IVP. Troponin 0.019. Will continue to trend. HR was ranging in the 120's while patient was on hour long duoneb Albuterol treatment. Continued to slowly rise. Was notified by ED nurse with HR being in the 170s-180s. Appeared irregular on director of adult epilepsy. Repeat EKG showed AFIB with RVR, some moderate ST depressions in lateral leads, celsa V4/V5. No STEMI. Attempted adenosine 6mg x1 to better determine underlying rhythm. Appropriate pause achieved with adenosine 6mg, rhythm appeared consistent with afib. HR back up into the 180s. BP somewhat soft now, 110s systolic after adenosine. Will attempt amiodarone to avoid any further drop in BP. 150 bolus, gtt started. Again given lasix. HR slowly improving on amiodarone drip. Rates down into the 130s to 150s. Remains AFib. Blood pressure remaining stable. Patient will be admitted for further cardiac evaluation, diuresis, new onset CHF/AFIB Discussed case with Dr. Amos, cardiology, agreed w/ plan and consult. Recommended metoprolol 12.5mg po q6h in addition to the amiodarone. Will see patient tomorrow. Patient was scheduled to see Dr. Amos next month. Discussed case with Dr. Graham, hospitalist, accepted patient for admission to IMU. Advised to start tamiflu. Patient and family in agreement with plan and admission. All questions answered. <Francine Abreu PA-C - Last Filed: 06/28/24 22:32> Medical Records Attestation: I reviewed the patient's medical records. <Francine Abreu PA-C - Last Filed: 06/28/24 22:32> Lab Data Attestation: I reviewed the patient's lab results. <Francine Abreu PA-C - Last Filed: 06/28/24 22:32> Result diagrams: 06/28/24 17:57 06/28/24 17:57 <Anna Loomis PA-C - Last Filed: 06/28/24 15:54> Labs: Lab Results 06/28/24 Range/Units 17:57 WBC 6.6 (4.5-10.0) K/mm3 RBC 5.27 (4.2-5.4) M/mm3 Hgb 11.1 L (12.0-15.0) g/dL Hct 36.8 L (37.0-47.0) % MCV 69.8 L (80-100) fl MCH 21.1 L (26-34) pg MCHC 30.2 L (32-36) g/dl RDW 20.4 H (11.5-14.5) % Plt Count 200 (150-375) k/mm3 MPV TNP Immature Gran % (Auto) Not Reportable Neut % (Auto) Not Reportable Lymph % (Auto) Not Reportable [place] % (Auto) Not Reportable Eos % (Auto) Not Reportable Baso % (Auto) Not Reportable Lymph # (Auto) Not Reportable [place] # (Auto) Not Reportable Eos # (Auto) Not Reportable Baso # (Auto) Not Reportable Abs Immat Gran (auto) Not Reportable Absolute Neuts (auto) Not Reportable Absolute Nucleated RBC Not Reportable Total Counted 100 Neutrophils % (Manual) 82 H (46-73) % Lymphocytes % (Manual) 7.0 L (18-44) % Monocytes % (Manual) 11 H (3-9) % Nucleated RBC % Not Reportable Abs Lymphs (Manual) 0.46 L (1.1-4.5) K/mm3 Abs Monocytes (Manual) 0.72 (0.1-0.90) K/mm3 Platelet Estimate Adequate (Adequate) % Immature Plt Fraction 5.9 (0.9-11.2) % Hypochromasia 1+ Anisocytosis 2+ Schistocytes 2+ PT 14.6 (11.1-14.7) Seconds INR 1.1 APTT 36.6 (22.3-36.8) Seconds Sodium 140 (137-145) mmol/L Potassium 4.1 (3.4-5.0) mmol/L Chloride 102 (98-107) mmol/L Carbon Dioxide 26 (22-30) mmol/L Anion Gap 12 (4-12) mmol/L BUN 30 H (7-17) mg/dL Creatinine 0.57 L (0.7-1.0) mg/dL Estim Creat Clear Calc 51 ml/min Estimated GFR > 60 (59 - ) Glucose 97 (65-110) mg/dL Calcium 9.5 (8.4-10.2) mg/dL Magnesium 2.2 (1.6-2.3) mg/dL Total Bilirubin 4.0 H (0.2-1.3) mg/dL AST 21 (14-36) U/L ALT 10 (6-35) U/L Alkaline Phosphatase 106 (38-126) U/L Troponin I 0.019 (0.000-0.034) ng/mL NT-Pro-B Natriuret Pep 53256 H (19.9-100) pg/mL Total Protein 7.0 (6.3-8.2) g/dL Albumin 3.9 (3.5-5.1) g/dL Influenza A (RT-PCR) Positive A (Negative) Influenza B (RT-PCR) Negative (Negative) RSV (RT-PCR) Negative (Negative) SARS-CoV-2 RNA (RT-PCR) Negative (Negative) <Anna Loomis PA-C - Last Filed: 06/28/24 15:54> Lab Results 06/28/24 Range/Units 17:57 WBC 6.6 (4.5-10.0) K/mm3 RBC 5.27 (4.2-5.4) M/mm3 Hgb 11.1 L (12.0-15.0) g/dL Hct 36.8 L (37.0-47.0) % MCV 69.8 L (80-100) fl MCH 21.1 L (26-34) pg MCHC 30.2 L (32-36) g/dl RDW 20.4 H (11.5-14.5) % Plt Count 200 (150-375) k/mm3 MPV TNP Immature Gran % (Auto) Not Reportable Neut % (Auto) Not Reportable Lymph % (Auto) Not Reportable [place] % (Auto) Not Reportable Eos % (Auto) Not Reportable Baso % (Auto) Not Reportable Lymph # (Auto) Not Reportable [place] # (Auto) Not Reportable Eos # (Auto) Not Reportable Baso # (Auto) Not Reportable Abs Immat Gran (auto) Not Reportable Absolute Neuts (auto) Not Reportable Absolute Nucleated RBC Not Reportable Total Counted 100 Neutrophils % (Manual) 82 H (46-73) % Lymphocytes % (Manual) 7.0 L (18-44) % Monocytes % (Manual) 11 H (3-9) % Nucleated RBC % Not Reportable Abs Lymphs (Manual) 0.46 L (1.1-4.5) K/mm3 Abs Monocytes (Manual) 0.72 (0.1-0.90) K/mm3 Platelet Estimate Adequate (Adequate) % Immature Plt Fraction 5.9 (0.9-11.2) % Hypochromasia 1+ Anisocytosis 2+ Schistocytes 2+ PT 14.6 (11.1-14.7) Seconds INR 1.1 APTT 36.6 (22.3-36.8) Seconds Sodium 140 (137-145) mmol/L Potassium 4.1 (3.4-5.0) mmol/L Chloride 102 (98-107) mmol/L Carbon Dioxide 26 (22-30) mmol/L Anion Gap 12 (4-12) mmol/L BUN 30 H (7-17) mg/dL Creatinine 0.57 L (0.7-1.0) mg/dL Estim Creat Clear Calc 51 ml/min Estimated GFR > 60 (59 - ) Glucose 97 (65-110) mg/dL Calcium 9.5 (8.4-10.2) mg/dL Magnesium 2.2 (1.6-2.3) mg/dL Total Bilirubin 4.0 H (0.2-1.3) mg/dL AST 21 (14-36) U/L ALT 10 (6-35) U/L Alkaline Phosphatase 106 (38-126) U/L Troponin I 0.019 (0.000-0.034) ng/mL NT-Pro-B Natriuret Pep 05943 H (19.9-100) pg/mL Total Protein 7.0 (6.3-8.2) g/dL Albumin 3.9 (3.5-5.1) g/dL Influenza A (RT-PCR) Positive A (Negative) Influenza B (RT-PCR) Negative (Negative) RSV (RT-PCR) Negative (Negative) SARS-CoV-2 RNA (RT-PCR) Negative (Negative) <Francine Abreu PA-C - Last Filed: 06/28/24 22:32> Imaging Data Attestation: I personally reviewed and interpreted this imaging study as follows: < JOLEEN Ty Last Filed: 06/28/24 22:32> Radiologist's impression: ITS Impressions Chest X-Ray 06/28/24 16:50 IMPRESSION: Mild pulmonary vascular congestion with a small right-sided pleural effusion. Venous Doppler Study 06/28/24 16:58 IMPRESSION: 1. No deep venous thrombosis in either lower limb. <JOLEEN Ty Last Filed: 06/28/24 22:32> ECG Data EKG #1: Attestation: I personally reviewed and interpreted this ECG as follows: <JOLEEN Ty Last Filed: 06/28/24 22:32> ECG completion date: 06/28/24 <JOLEEN Ty Last Filed: 06/28/24 22:32> ECG completion time: 17:04 <JOLEEN Ty Filed: 06/28/24 22:32> EKG Interpretation: tachycardia (126), sinus rhythm and non-specific ST changes <Francine Abreu PA-C - Last Filed: 06/28/24 22:32> Discharge Plan Discharge Clinical Impression: Swelling of both lower extremities, Pulmonary hypertension, Atrial fibrillation with rapid ventricular response, Hyperbilirubinemia, Influenza A CHF (congestive heart failure) Qualifiers: Heart failure type: unspecified Heart failure chronicity: acute on chronic Q ualified Code(s): I50.9 - Heart failure, unspecified <Anna Loomis PA-C - Last Filed: 06/28/24 15:54> Patient Disposition: Still a Patient <JOLEEN Blake Last Filed: 06/28/24 15:54> Condition: Serious <JOLEEN Blake Last Filed: 06/28/24 15:54>
--- NOTE | 2024-06-28 15:48 | ECG_ITS ---
Test Date: 2024-06-28 17:04:13 Measurements Intervals [place] Rate: 126 P: 162 [place]: 128 QRS: 13 QRSD: 79 T: 223 QT: 271 QTc: 393 Interpretive Statements ECTOPIC ATRIAL TACHYCARDIA ANTEROSEPTAL INFARCT, AGE INDETERMINATE BORDERLINE ST-T WAVE ABNORMALITY- INF/LAT LEADS BASELINE ARTIFACT- I, II, III, AVL, AVF, V1-V6 ABNORMAL ECG No previous ECG available for comparison Electronically Signed On 06-28-2024 19:31:07 VIDEO PLAYER MECHANIC by Talha Amos D.O.
--- OUTSIDE RECORDS SUMMARY | 2024-06-28 15:57 | XMS_ITS | Clinical Summary ---
Author Organization [facility] Address [address] [place] [address] Care Team Providers Care Assistant Casino Shift Manager Name Role Phone Luis Almeida DO Primary Care Provider [phone]- [phone] Allergies Active Allergy Reactions Criticality Noted Date [...] 09/14/22 OS and was sent to [facility] The path was read as conj melanoma [...] 04/03/2018 Assessment & Plan (06/17/2024 12:44 PM ASSISTANT GROCERY): Mrs. Mckoy was doing well overall. She [...] hydrated Assessment & Plan (06/09/2023 1:32 PM ASSISTANT GROCERY): Mrs. Mckoy presented for a follow up. [...] is scheduled to follow up with her receiver stocker today post surgical removal of melanoma. Recommendations [...] She was drinking boost. She lived at [facility] in assisted living and her daughter would [...] Our office will fax OT/PT orders to [facility] ATTN Alba at [phone] A message will be sent to the [...] management Assessment & Plan (04/28/2021 2:22 PM ASSISTANT GROCERY): Ms. Haven Mckoy is a 85 y.o. [...] encounter. Assessment & Plan (06/17/2020 11:03 AM ASSISTANT GROCERY): Ms. Haven Mckoy is a 84 y.o. female, who presents for follow-up for Parkinson's disease (PD), complicated by low back pain. 1. PD. She is about the same since the last visit. She continues to have manager managed care stiffness and increase in nighttime carbidopa-levodopa CR [...] effects were discussed during the encounter, including manager managed care sedation with gabapentin. Assessment & Plan (12/16/2019 [...] 2 tablets at bedtime to help with manager managed care off. - Continue carbidopa-levodopa 25-100 mg at the current dose. - Establish a regular exercise routine. - She should discuss with PCP about the use of BP medication and the vertigo. Assessment & Plan (03/21/2019 4:34 PM ASSISTANT GROCERY): Ms. Haven Mckoy is a 83 y.o. [...] Department Care Team Description 06/27/2024 Telephone [facility] Ophthalmology [address] [place] [address] 1st [place] [id number] Reyna Lewis COA 06/17/2024 12:00 PM ASSISTANT GROCERY Office Visit [facility] Movement Disorders [address] [place] [address] Advanced Medicine 7th [place] [address] Elizabeth Barriga, EDITH Parkinson disease (HCC) from Last 3 Months Immunizations Name Administration Dates Next Due Influenza, Trivalent, High D ose, Split, Preservative Free, Intramuscular 06/14/2017 Surgical History Surgery Date Site/Laterality Comments OR TOTAL ABDOMINAL HYSTERECT W/WO RMVL TUBE OVARY Hysterectomy - (Added by TW Conv) OR COLECTOMY PARTIAL W/ANASTOMOSIS Partial Colectomy - (Added [...] on file Legal Sex Female 8:35 PM ASSISTANT GROCERY Gender Identity Female 01/25/2022 6:38 PM CDT Sexual Orientation Not on file Obstetrics History Last Filed Vital Signs Vital Sign Reading Time Taken Comments Blood Pressure 130/80 06/17/2024 11:54 AM ASSISTANT GROCERY Pulse 66 06/17/2024 11:54 AM ASSISTANT GROCERY Temperature 36.1 C (97 F) 12/02/2022 10:25 AM CDT Respiratory Rate 17 12/02/2022 3:40 PM CDT Oxygen Saturation 95% 12/02/2022 3:40 PM CDT Inhaled Oxygen Concentration - - Weight 61.7 kg (136 lb) 06/17/2024 11:54 AM ASSISTANT GROCERY Height 162.6 cm (5' 4 ) 06/17/2024 11:54 AM ASSISTANT GROCERY Body Mass Index 23.34 06/17/2024 11:54 AM ASSISTANT GROCERY Plan of Treatment Health Maintenance Due Date Last Done Comments DTaP/Tdap/Td Vaccine (1 - Tdap) 10/24/1946 Hepatitis B Screening 1954 Zoster Vaccine (1 of 2) 1986 Pneumococcal vaccine 65+ (1 of 1 - PCV) 2001 Well Visit 65+ 2001 Fall Risk Assessment 12/03/2023 12/02/2022 Influenza Vaccine (#1) 2024 06/14/2017 Depression Screening 12/07/2024 12/08/2023 Insurance AETNA MEDICARE GOLD [facility] AETNA MEDICARE GOLD [facility] IDPA AETNA MEDICARE GOLD Care Teams Assistant Casino Shift Manager Relationship Specialty Start Date End Date Luis Almeida DO PCP - General Internal Medicine 01/06/21
--- OUTSIDE RECORDS SUMMARY | 2024-06-28 15:57 | XMS_ITS | Referral Summary ---
Author Organization [facility] Address [address] [place] [address] Care Team Providers Care Human Resources Office Assistant Name Role Phone Luis Almeida DO Primary Care Provider [phone]- [phone] Encounters Date Type Department Care Team Description 06/27/2024 Telephone [facility] Ophthalmology [address] [place] [address] 1st [place] [address] Reyna Lewis COA 06/17/2024 12:00 PM MARINE FARMER Office Visit [facility] Movement Disorders [address] [place] [address] Advanced Medicine 7th [place] [address] Elizabeth Barriga NP Parkinson disease [...] on 09/14/22 w/ pathology report from Dr Salciod showing positivity for melanA & SOX10 and [...] tumor 09/14/22 OS and was sent to [facility] 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 Mckoy was doing well overall. She [...] hydrated Assessment & Plan (06/09/2023 1:32 PM MARINE FARMER): Mrs. Mckoy presented for a follow up. [...] is scheduled to follow up with her desktop publishing operator today post surgical removal of melanoma. Recommendations [...] She was drinking boost. She lived at [facility] in assisted living and her daughter would [...] Our office will fax OT/PT orders to [facility] ATTN Alba at [phone] A message will be sent to the [...] management Assessment & Plan (04/28/2021 2:22 PM MARINE FARMER): Ms. Haven Mckoy is a 85 y.o. [...] encounter. Assessment & Plan (06/17/2020 11:03 AM MARINE FARMER): Ms. Haven Mckoy is a 84 y.o. female, who presents for follow-up for Parkinson's disease (PD), complicated by low back pain. 1. PD. She is about the same since the last visit. She continues to have portfolio architect stiffness and increase in nighttime carbidopa-levodopa CR has not helped. We discussed gabapentin and she was willing to try. - Start gabapentin 100 mg with titration to 3 capsules at bedtime. Titration schedule was given through [employer]. Additional doses changes may be needed. - [...] effects were discussed during the encounter, including portfolio architect sedation with gabapentin. Assessment & Plan (12/16/2019 [...] 2 tablets at bedtime to help with portfolio architect off. - Continue carbidopa-levodopa 25-100 mg at the current dose. - Establish a regular exercise routine. - She should discuss with PCP about the use of BP medication and the vertigo. Assessment & Plan (03/21/2019 4:34 PM MARINE FARMER): Ms. Haven Mckoy is a 83 y.o. [...] on file Legal Sex Female 8:35 PM MARINE FARMER Gender Identity Female 01/25/2022 6:38 PM CDT Sexual Orientation Not on file Last Filed Vital Signs Vital Sign Reading Time Taken Comments Blood Pressure 130/80 06/17/2024 11:54 AM MARINE FARMER Pulse 66 06/17/2024 11:54 AM MARINE FARMER Temperature 36.1 C (97 F) 12/02/2022 10:25 AM CDT Respiratory Rate 17 12/02/2022 3:40 PM CDT Oxygen Saturation 95% 12/02/2022 3:40 PM CDT Inhaled Oxygen Concentration - - Weight 61.7 kg (136 lb) 06/17/2024 11:54 AM MARINE FARMER Height 162.6 cm (5' 4 ) 06/17/2024 11:54 AM MARINE FARMER Body Mass Index 23.34 06/17/2024 11:54 AM MARINE FARMER Plan of Treatment Not on file Insurance AETNA MEDICARE GOLD IDPA [facility] AETNA MEDICARE GOLD [facility] AETNA MEDIC[facility] GOLD Care Teams Human Resources Office Assistant Relationship Specialty Start Date End Date Luis Almeida DO PCP - General Internal Medicine 01/06/21
--- OUTSIDE RECORDS SUMMARY | 2024-06-28 15:59 | XMS_ITS | Encounter Summary ---
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 Soares appointment. When patient calls back please r/s missedappointment. No overbook 6 month [employer]. NISTRATIVE CLERK documented in this encounter Plan of Treatment Not on file documented as of this encounter Visit Diagnoses Not on filedocumented in this encounter Care Teams Business Analytics Director Relationship Specialty Start Date End Date Luis Almeida DO PCP - General Internal Medicine 01/06/21 documented as of this encounter
--- NOTE | 2024-06-28 16:12 | PCRCNOTE ---
PT. IS GOING TO HAVE A CONTINUOUS TX AND DOES NOT HAVE A ROOM YET. E.D. CHARGE NURSE TO LET US KNOW WHEN PT. HAS A ROOM SO WE CAN GIVE THE TREATMENT.
[2024-06-28] MEDS: IPRATROPIUM 0.5 MG/ALBUTEROL SULFATE 2.5 MG AMPUL.NEB 3 ML INHALATION ×3 (16:50)
[2024-06-28 18:09] LABS: Hematocrit 36.8 % (37.0-47.0); Hemoglobin 11.1 g/dL (12.0-15.0); Immature Platelet Fraction Pct 5.9 % (0.9-11.2); Mean Corpuscular HGB Conc 30.2 g/dl (32-36); Mean Corpuscular Hemoglobin 21.1 pg (26-34); Mean Corpuscular Volume 69.8 fl (80-100); Platelet Count Result 200 k/mm3 (150-375); Red Blood Count 5.27 M/mm3 (4.2-5.4); Red Cell Distribution Width 20.4 % (11.5-14.5); White Blood Count 6.6 K/mm3 (4.5-10.0)
--- NOTE | 2024-06-28 18:11 | ECG_ITS ---
Test Date: 2024-06-28 18:15:22 Measurements Intervals [place] Rate: 166 P: 0 IN: 0 QRS: 58 QRSD: 90 T: 230 QT: 262 QTc: 436 Interpretive Statements ATRIAL FIBRILLATION WITH RAPID VENTRICULAR RESPONSE CANNOT R/O SEPTAL INFARCT, AGE INDETERMINATE ST-T WAVE ABNORMALITY IN INFERIOR LEADS- CONSIDER ISCHEMIA BASELINE ARTIFACT- I, II, III, AVR, AVL, AVF, V2 ABNORMAL ECG Compared to ECG 06/28/2024 17:04:13 ECTOPIC ATRIAL RHYTHM NO LONGER PRESENT Electronically Signed On 06-28-2024 19:29:00 CUPOLA OPERATOR by Talha Amos D.O.
[2024-06-28 18:19] LABS: INR 1.1; Partial Thromboplastin Time 36.6 Seconds (22.3-36.8); Prothrombin Time 14.6 Seconds (11.1-14.7)
[2024-06-28] MEDS: ADENOSINE IV SOLN 6 MG/2 ML VIAL IV PUSH (18:20)
[2024-06-28 18:27] LABS: Alanine Aminotransferase 10 U/L (6-35); Albumin Level 3.9 g/dL (3.5-5.1); Alkaline Phosphatase 106 U/L (38-126); Anion Gap 12 mmol/L (4-12); Aspartate Amino Transferase 21 U/L (14-36); Blood Urea Nitrogen 30 mg/dL (7-17); Calcium 9.5 mg/dL (8.4-10.2); Carbon Dioxide 26 mmol/L (22-30); Chloride 102 mmol/L (98-107); Estimated CRCL calculation 51 ml/min; Estimated Glomerular Filt Rate > 60; Glucose 97 mg/dL (65-110); Magnesium 2.2 mg/dL (1.6-2.3); Potassium 4.1 mmol/L (3.4-5.0); Sodium 140 mmol/L (137-145)
[2024-06-28] MEDS: AMIODARONE 150 MG/D5W 100 ML 150 MG/100 ML BAG 600 MG IV CONT (18:29)
[2024-06-28 18:35] LABS: Hypochromasia 1+; Lymphocytes Absolute Manual 0.46 K/mm3 (1.1-4.5); Monocytes Absolute Manual 0.72 K/mm3 (0.1-0.90); Monocytes Percent Manual 11 % (3-9); Neutrophils Percent Manual 82 % (46-73); Platelet Estimate Adequate (Adequate); Schistocytes 2+; Total Cells Counted 100
[2024-06-28 18:36] LABS: Anisocytosis 2+
[2024-06-28 18:37] LABS: NT Pro B Type Natriuretic Pept 13700 pg/mL (19.9-100); Troponin I 0.019 ng/mL (0.000-0.034)
[2024-06-28] MEDS: AMIODARONE 360 MG/D5W 200 ML 360 MG/200 ML BAG 33.33 MG IV CONT (18:40)
[2024-06-28 18:41] LABS: Influenza A QL RT-PCR Positive (Negative); Influenza B QL RT-PCR Negative (Negative); RSV RNA, RT-PCR Negative (Negative); SARS-CoV-2 RNA PCR Negative (Negative)
[2024-06-28] MEDS: FUROSEMIDE INJ 40 MG/4 ML VIAL IV PUSH (18:44)
[2024-06-28] MEDS: METOPROLOL TARTRATE 12.5 MG TABLET PO (19:42)
[2024-06-28] MEDS: OSELTAMIVIR PHOSPHATE 30 MG CAPSULE PO (21:11)
--- NOTE | 2024-06-28 21:15 | PC.NURSE ---
Per EDP ABISAI Gage hold Furosemide 40mg till until 0900 tomorrow.
--- NOTE | 2024-06-28 21:21 | P.HP_ITS ---
H&P: HPI History of Present Illness Date/Time: 06/28/24 21:21 Chief Complaint: Leg swelling, shortness of breath Narrative: 88-year-old female with a past medical history of Parkinson's, dementia, essential hypertension, depression and cardiac murmur who presented to the ER from the echo lab due to reports of bilateral lower extremity swelling and shortness of breath. The patient reports that she has been having shortness of breath for 6 months. She did not tell her daughter that she had been having shortness of breath until today. She denies having any chest pain or palpitations. Her daughter reports that she had noticed some mild swelling in the patient's legs in March but they were acutely more swollen today. She reports that the staff at [facility] called to tell her that the patient was more fatigued and could not get out of bed. They had also noted some weeping from the patient's legs. The patient's daughter reported that when she arrived to the assisted living facility she found her mother had a large incontinent bowel movement in bed it required a complete bed change. She reports the stool was brown and watery. Patient is only oriented to person and place. She is confused as to the month and year. As such her daughter provides the majority of the history with support from ER physician report, and past medical records. Patient is usually incontinent of urine at night and wears depends. In the ER patient was initially noted to be wheezing in triage. She received a hour long nebulizer treatment after which time her heart rate became acutely elevated from the 110s up into the 180s to 200 range. After adenosine it was noted that patient was in AFib. She received 1 dose of oral metoprolol 12.5 mg, 1 dose of digoxin. She did not receive the IV Lopressor. Her blood pressures after adenosine were down from the 140s to 119/94. She was started on amiodarone drip and Cardiology was consulted. The patient was also found to be positive for influenza a and was started on Tamiflu. The patient's bilirubin was noted to be mildly elevated in the ER but the remainder of her liver enzymes were normal. Patient look like she may be jaundice but the daughter did not feel the patient appears changed from baseline. She reports that the patient's level of confusion waxes and wanes. She has noticed progressive memory changes over the last year so. Review of Systems 2 Review of Systems: 12 systems were reviewed with pertinent positives and negatives per HPI. Except as documented in the HPI, all other systems were reviewed and are negative. However due to the patient's history of dementia review of systems was not all that reliable. 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 Essential hypertension Thalassemia Hypertension Parkinson disease Surgical History Surgical History (Updated 06/28/24 @ 23:48 by Kaia Graham DO) History of tonsillectomy and adenoidectomy Status post cataract extraction of both eyes with insertion of intraocular lens H/O colectomy (1995) Right hemicolectomy with end-to-end anastomosis Due to colon cancer, most recent colonoscopy 2010 Knee joint replacement status H/O: hysterectomy 1969' Hx of appendectomy Family History Family History Father Brain tumor Mother Breast cancer Grandparent Diabetes mellitus Son , at age 62 Alcoholism Dilated cardiomyopathy Social History Social History (Updated 06/28/24 @ 23:49 by Kaia Graham DO) Social History: The patient lives in [facility]. She had a daughter and a son. Her daughter is still living. She is a lifelong nonsmoker and does not drink alcohol. She ambulates with a Rollator. Code status: Full code Healthcare power of attorney lawyer: Kamari (daughter) Smoking status: Never smoker Alcohol intake: never Substance use: never Do You Feel Safe in your Home?: Yes Lack of Transportation: No Lack of Food: Never True Current Housing: I Have Housing Concerned About Future Housing: No Difficulty Paying Gas/Electric Bills: No Difficulty Paying for Meds: No Currently Unemployed: No Education: Decline to Answer Difficulty w/ Childcare or Family Care: No Spiritual care concerns: No Meds Home Medications and Allergies Home Medications ?Medication ?Instructions ?Recorded ?Confirmed ?Type carbidopa 25 mg-levodopa 100 mg 1 tablet PO TID 09/08/21 06/28/24 History tablet carbidopa ER 50 mg-levodopa 200 mg 2 tablet PO QHS 09/08/21 06/28/24 History tablet,extended release mirtazapine 15 mg tablet 15 mg PO QHS 06/21/22 06/28/24 History acetaminophen 500 mg tablet 500 mg PO Q8H PRN pain #90 tabs 07/22/22 06/28/24 Rx gabapentin 100 mg capsule 100 mg PO DAILY 06/28/24 06/28/24 History Allergies Allergy/AdvReac Type Severity Reaction Status Date / Time Sulfa (Sulfonamide Allergy Unknown Hives Verified 06/28/24 22:52 Antibiotics) Vital Signs Vital Signs - 24 hr 06/28/24 16:55 06/28/24 17:22 06/28/24 17:22 Temperature 97.6 F Pulse Rate 112 H 130 H Respiratory Rate 27 H 20 Blood Pressure 156/98 H Pulse Oximetry 100 Oxygen Delivery Room Air 06/28/24 17:49 06/28/24 18:03 06/28/24 18:29 Temperature Pulse Rate 137 H 204 H Respiratory Rate 25 H Blood Pressure 119/94 H Pulse Oximetry 100 Oxygen Delivery Room Air 06/28/24 18:30 06/28/24 18:40 06/28/24 18:41 Temperature Pulse Rate 182 H 130 H 130 H Respiratory Rate Blood Pressure 116/62 116/62 Pulse Oximetry Oxygen Delivery 06/28/24 19:42 06/28/24 19:43 06/28/24 19:44 Temperature 97.6 F Pulse Rate 153 H 145 H 145 H Respiratory Rate 27 H Blood Pressure 120/83 Pulse Oximetry 94 Oxygen Delivery 06/28/24 19:44 Temperature Pulse Rate Respiratory Rate Blood Pressure Pulse Oximetry 94 Oxygen Delivery Room Air Exam 2 Narrative: Weight 56.1 kg BMI 20.6 Const: Other: No acute distress, well-developed well-nourished, appears stated age HENMT: Other: Mucous membranes are tacky, no oral pharyngeal erythema, head is normocephalic atraumatic Eyes: Other: Pupils are equal and reactive, no conjunctival pallor, no scleral icterus Neck: Other: No JVD, trachea midline Resp: Other: Crackles bilaterally, equal breath sounds Cardio: Other: Irregularly irregular, tachycardic, murmur noted, 2+ bilateral radial and pedal pulses GI: Other: Soft, nontender, nondistended, positive bowel sounds : Other: Pure wick catheter in place with 1 L of output in the suction canister Skin: Other: On jaundice, no pallor Neuro: Other: Alert oriented to person and place, confused as to the month in year, hard of hearing patient refuses hearing aids, no localizing neurologic deficits noted during the course of conversation Extrem: Other: 2+ pitting edema to lower extremities up through the calf Psych: Other: Pleasantly confused, cooperative, poor insight H&P: Results Labs Labs: Laboratory Tests 06/28/24 17:57 06/28/24 17:57 06/28/24 17:57 WBC 6.6 RBC 5.27 Hgb 11.1 L Hct 36.8 L MCV 69.8 L MCH 21.1 L MCHC 30.2 L RDW 20.4 H Plt Count 200 MPV TNP Immature Gran % (Auto) Not Reportable Neut % (Auto) Not Reportable Lymph % (Auto) Not Reportable [place] % (Auto) Not Reportable Eos % (Auto) Not Reportable Baso % (Auto) Not Reportable Lymph # (Auto) Not Reportable [place] # (Auto) Not Reportable Eos # (Auto) Not Reportable Baso # (Auto) Not Reportable Abs Immat Gran (auto) Not Reportable Absolute Neuts (auto) Not Reportable Absolute Nucleated RBC Not Reportable Total Counted 100 Neutrophils % (Manual) 82 H Lymphocytes % (Manual) 7.0 L Monocytes % (Manual) 11 H Nucleated RBC % Not Reportable Abs Lymphs (Manual) 0.46 L Abs Monocytes (Manual) 0.72 Platelet Estimate Adequate % Immature Plt Fraction 5.9 Hypochromasia 1+ Anisocytosis 2+ Schistocytes 2+ PT 14.6 INR 1.1 APTT 36.6 Sodium 140 Potassium 4.1 Chloride 102 Carbon Dioxide 26 Anion Gap 12 BUN 30 H Creatinine 0.57 L Estim Creat Clear Calc 51 Estimated GFR > 60 Glucose 97 Calcium 9.5 Magnesium 2.2 Total Bilirubin 4.0 H AST 21 ALT 10 Alkaline Phosphatase 106 Troponin I 0.019 NT-Pro-B Natriuret Pep 40510 H Total Protein 7.0 Albumin 3.9 Influenza A (RT-PCR) Positive A Influenza B (RT-PCR) Negative RSV (RT-PCR) Negative SARS-CoV-2 RNA (RT-PCR) Negative Impressions Chest X-Ray 06/28/24 16:50 IMPRESSION: Mild pulmonary vascular congestion with a small right-sided pleural effusion. Venous Doppler Study 06/28/24 16:58 IMPRESSION: 1. No deep venous thrombosis in either lower limb. EKG: Multiple EKGs reviewed most recent 1 demonstratingTest Date: 2024-06-28 18:15:22 Measurements Intervals [place] Rate: 166 P: 0 [place]: 0 QRS: 58 QRSD: 90 T: 230 QT: 262 QTc: 436 Interpretive Statements ATRIAL FIBRILLATION WITH RAPID VENTRICULAR RESPONSE CANNOT R/O SEPTAL INFARCT, AGE INDETERMINATE ST-T WAVE ABNORMALITY IN INFERIOR LEADS- CONSIDER ISCHEMIA BASELINE ARTIFACT- I, II, III, AVR, AVL, AVF, V2 ABNORMAL ECG Compared to ECG 06/28/2024 17:04:13 ECTOPIC ATRIAL RHYTHM NO LONGER PRESENT All imaging and EKGs personally reviewed and interpreted. And unless stated otherwise agree with radiologic and cardiology interpretation. Assessment and Plan Assessment and plan (1) Severe pulmonary hypertension: Code(s): I27.20 - Pulmonary hypertension, unspecified Status: Acute (2) Right-sided heart failure: Qualifiers: Heart failure chronicity: acute on chronic Qualified Code(s): I50.813 - Acute on chronic right heart failure Code(s): I50.810 - Right heart failure, unspecified Status: Acute (3) Heart failure with preserved ejection fraction (HFpEF, >= 50%): Qualifiers: Heart failure chronicity: acute on chronic Qualified Code(s): I50.33 - Acute on chronic diastolic (congestive) heart failure Code(s): I50.30 - Unspecified diastolic (congestive) heart failure Status: Acute (4) Atrial fibrillation with rapid ventricular response: Code(s): I48.91 - Unspecified atrial fibrillation Status: Acute (5) Paroxysmal atrial fibrillation with RVR: Code(s): I48.0 - Paroxysmal atrial fibrillation Status: Acute (6) Mitral valve regurgitation: Qualifiers: Cardiac valve disease etiology: nonrheumatic Qualified Code(s): I34.0 - Nonrheumatic mitral (valve) insufficiency Code(s): I34.0 - Nonrheumatic mitral (valve) insufficiency Status: Acute (7) Hyperbilirubinemia: Code(s): E80.6 - Other disorders of bilirubin metabolism Status: Acute (8) Influenza A: Code(s): J10.1 - Influenza due to other identified influenza virus with other respiratory manifestations Status: Acute Plan It sounds as if the patient has been having CHF symptoms ongoing for quite some time but now has an acute exacerbation. Patient has a combination of diastolic heart failure right-sided heart failure and likely high-output heart failure with AFib RVR. The patient received digoxin and oral metoprolol in the ER per cardiology recommendations. Her heart rates remained in the 120s. She was started on amiodarone drip. She will be admitted to IMU for close monitoring. Echocardiogram performed as outpatient demonstrated EF of 50%, moderate to severe mitral valve regurgitation, decreased right ventricular systolic function, severe pulmonary hypertension. Will monitor strict I&O's and daily weights. Will repeat electrolyte panel in a.m.. Patient does have mild hyperbilirubinemia that is increased over recent months. I suspect this is likely due to passive congestive of the liver. However she has had intermittent hyperbilirubinemia for many years as long as far back as 2019 and could be in part due to her history of thalassemia and breakdown of blood product. Will check a CMP and indirect bilirubin. However will check right upper quadrant ultrasound. The patient's abdominal exam is benign. Patient positive for influenza a. Will start patient on Tamiflu 30 mg p.o. b.i.d. Patient is having diarrhea most likely due to influenza a/viral illness. Patient has not had recent antibiotic exposures. However will still check C diff and stool cultures given her communal living situation. Goals of care discussion was had with the patient's daughter/POA. She would like the patient to remain full code at this time and she would like to discuss her mother's wishes when she is more clear mentally. Quality VTE Prophylaxis VTE prophylaxis: pharmacologic ordered (Lovenox 1 milligram/kilogram x1) Hospitalist [facility] Advance Care Plan I have confirmed that the patient's Advanced Care Plan is present, code status is documented, or surrogate decision maker is listed in patient medical record.: Yes Medication Reconciliation I have utilized all available resources to obtain, update and review the patients current medications (includes all prescriptions, OTC, herbals, cannabis, and nutritional supplements).: Yes
--- OUTSIDE RECORDS SUMMARY | 2024-06-28 21:52 | XMS_ITS | Encounter Summary ---
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 Soares appointment. When patient calls back please r/s missedappointment. No overbook 6 month [place]. AL APPLICATOR PILOT documented in this encounter Plan of Treatment Not on file documented as of this encounter Visit Diagnoses Not on filedocumented in this encounter Care Teams Accounting Administrator Relationship Specialty Start Date End Date Luis Almeida DO PCP - General Internal Medicine 01/06/21 documented as of this encounter
--- OUTSIDE RECORDS SUMMARY | 2024-06-28 21:52 | XMS_ITS | Clinical Summary ---
Author Organization [facility] Address [address] [place] [address] Care Team Providers Care Contracts Intern Name Role Phone Luis Almeida DO Primary Care Provider +1- [phone] Allergies Active Allergy Reactions Criticality Noted Date [...] 09/14/22 OS and was sent to [facility] The path was read as conj melanoma [...] 04/03/2018 Assessment & Plan (06/17/2024 12:44 PM HUMAN RESOURCES TALENT MANAGER): Mrs. Mckoy was doing well overall. She [...] hydrated Assessment & Plan (06/09/2023 1:32 PM HUMAN RESOURCES TALENT MANAGER): Mrs. Mckoy presented for a follow up. [...] is scheduled to follow up with her digital photo printer today post surgical removal of melanoma. Recommendations [...] She was drinking boost. She lived at [facility] in assisted living and her daughter [...] Our office will fax OT/PT orders to [facility] ATTN Alba at [phone] A message will be sent to the [...] management Assessment & Plan (04/28/2021 2:22 PM HUMAN RESOURCES TALENT MANAGER): Ms. Haven Mckoy is a 85 y.o. [...] encounter. Assessment & Plan (06/17/2020 11:03 AM HUMAN RESOURCES TALENT MANAGER): Ms. Haven Mckoy is a 84 y.o. female, who presents for follow-up for Parkinson's disease (PD), complicated by low back pain. 1. PD. She is about the same since the last visit. She continues to have acetylene operator stiffness and increase in nighttime carbidopa-levodopa CR [...] effects were discussed during the encounter, including acetylene operator sedation with gabapentin. Assessment & Plan (12/16/2019 [...] 2 tablets at bedtime to help with acetylene operator off. - Continue carbidopa-levodopa 25-100 mg at the current dose. - Establish a regular exercise routine. - She should discuss with PCP about the use of BP medication and the vertigo. Assessment & Plan (03/21/2019 4:34 PM HUMAN RESOURCES TALENT MANAGER): Ms. Haven Mckoy is a 83 y.o. [...] Department Care Team Description 06/27/2024 Telephone [facility] Ophthalmology [address] [place] [address] 1st [place] [id number] Reyna Lewis COA 06/17/2024 12:00 PM HUMAN RESOURCES TALENT MANAGER Office Visit [facility] Movement Disorders [address] [place] [address] Advanced Medicine 7th [place] [address] Elizabeth Barriga, EDITH Parkinson disease (HCC) from Last 3 Months Immunizations Name Administration Dates Next Due Influenza, Trivalent, High D ose, Split, Preservative Free, Intramuscular 06/14/2017 Surgical History Surgery Date Site/Laterality Comments CT TOTAL ABDOMINAL HYSTERECT W/WO RMVL TUBE OVARY Hysterectomy - (Added by TW Conv) CT COLECTOMY PARTIAL W/ANASTOMOSIS Partial Colectomy - (Added [...] on file Legal Sex Female 8:35 PM HUMAN RESOURCES TALENT MANAGER Gender Identity Female 01/25/2022 6:38 PM CDT Sexual Orientation Not on file Obstetrics History Last Filed Vital Signs Vital Sign Reading Time Taken Comments Blood Pressure 130/80 06/17/2024 11:54 AM HUMAN RESOURCES TALENT MANAGER Pulse 66 06/17/2024 11:54 AM HUMAN RESOURCES TALENT MANAGER Temperature 36.1 C (97 F) 12/02/2022 10:25 AM CDT Respiratory Rate 17 12/02/2022 3:40 PM CDT Oxygen Saturation 95% 12/02/2022 3:40 PM CDT Inhaled Oxygen Concentration - - Weight 61.7 kg (136 lb) 06/17/2024 11:54 AM HUMAN RESOURCES TALENT MANAGER Height 162.6 cm (5' 4 ) 06/17/2024 11:54 AM HUMAN RESOURCES TALENT MANAGER Body Mass Index 23.34 06/17/2024 11:54 AM HUMAN RESOURCES TALENT MANAGER Plan of Treatment Health Maintenance Due Date Last Done Comments DTaP/Tdap/Td Vaccine (1 - Tdap) 10/24/1946 Hepatitis B Screening 1953 Zoster Vaccine (1 of 2) 1986 Pneumococcal vaccine 65+ (1 of 1 - PCV) 2001 Well Visit 65+ 2001 Fall Risk Assessment 12/03/2023 12/02/2022 Influenza Vaccine (#1) 2024 06/14/2017 Depression Screening 12/07/2024 12/08/2023 Insurance AETNA MEDICARE GOLD [facility] AETNA MEDICARE GOLD [facility] IDPA AETNA MEDICARE GOLD Care Teams Contracts Intern Relationship Specialty Start Date End Date Luis Almeida DO PCP - General Internal Medicine 01/06/21
--- OUTSIDE RECORDS SUMMARY | 2024-06-28 21:52 | XMS_ITS | Referral Summary ---
Author Organization [facility] al Address [address] [place] [address] Care Team Providers Care Metal Furniture Assembly Supervisor Name Role Phone Luis Almeida DO Primary Care Provider [phone]- [phone] Encounters Date Type Department Care Team Description 06/27/2024 Telephone [facility] Ophthalmology [address] [place] [address] 1st [place] [address] Reyna Lewis COA 06/17/2024 12:00 PM WEIGH TANK OPERATOR Office Visit [facility] Movement Disorders [address] [place] [address] Advanced Medicine 7th [place] [address] Elizabeth Barriga NP Parkinson disease [...] tumor 09/14/22 OS and was sent to [facility] The path was read as conj melanoma [...] 04/03/2018 Assessment & Plan (06/17/2024 12:44 PM WEIGH TANK OPERATOR): Mrs. Mckoy was doing well overall. She [...] hydrated Assessment & Plan (06/09/2023 1:32 PM WEIGH TANK OPERATOR): Mrs. Mckoy presented for a follow up. [...] is scheduled to follow up with her baker doughnut today post surgical removal of melanoma. Recommendations [...] She was drinking boost. She lived at [facility] in assisted living and her daughter [...] Our office will fax OT/PT orders to [facility] ATTN Alba at [phone] A message will be sent to the [...] management Assessment & Plan (04/28/2021 2:22 PM WEIGH TANK OPERATOR): Ms. Haven Mckoy is a 85 y.o. [...] encounter. Assessment & Plan (06/17/2020 11:03 AM WEIGH TANK OPERATOR): Ms. Haven Mckoy is a 84 y.o. female, who presents for follow-up for Parkinson's disease (PD), complicated by low back pain. 1. PD. She is about the same since the last visit. She continues to have pug mill operator helper stiffness and increase in nighttime carbidopa-levodopa CR has not helped. We discussed gabapentin and she was willing to try. - Start gabapentin 100 mg with titration to 3 capsules at bedtime. Titration schedule was given through [employer]. Additional doses changes may be needed. - [...] effects were discussed during the encounter, including pug mill operator helper sedation with gabapentin. Assessment & Plan (12/16/2019 [...] 2 tablets at bedtime to help with pug mill operator helper off. - Continue carbidopa-levodopa 25-100 mg at the current dose. - Establish a regular exercise routine. - She should discuss with PCP about the use of BP medication and the vertigo. Assessment & Plan (03/21/2019 4:34 PM WEIGH TANK OPERATOR): Ms. Haven Mckoy is a 83 y.o. [...] on file Legal Sex Female 8:35 PM WEIGH TANK OPERATOR Gender Identity Female 01/25/2022 6:38 PM CDT Sexual Orientation Not on file Last Filed Vital Signs Vital Sign Reading Time Taken Comments Blood Pressure 130/80 06/17/2024 11:54 AM WEIGH TANK OPERATOR Pulse 66 06/17/2024 11:54 AM WEIGH TANK OPERATOR Temperature 36.1 C (97 F) 12/02/2022 10:25 AM CDT Respiratory Rate 17 12/02/2022 3:40 PM CDT Oxygen Saturation 95% 12/02/2022 3:40 PM CDT Inhaled Oxygen Concentration - - Weight 61.7 kg (136 lb) 06/17/2024 11:54 AM WEIGH TANK OPERATOR Height 162.6 cm (5' 4 ) 06/17/2024 11:54 AM WEIGH TANK OPERATOR Body Mass Index 23.34 06/17/2024 11:54 AM WEIGH TANK OPERATOR Plan of Treatment Not on file Insurance A[employer] MEDICARE GOLD [facility] AETNA [facility]IC[facility] GOLD [facility] AETNA MEDIC[facility] GOLD Care Teams Metal Furniture Assembly Supervisor Relationship Specialty Start Date End Date Luis Almeida DO PCP - General Internal Medicine 01/06/21
[2024-06-28] MEDS: ENOXAPARIN 80 MG/0.8 ML SYRINGE 64 MG SUB-Q (22:01)
--- NOTE | 2024-06-28 23:18 | PC.NURSE ---
This patient, Haven Mckoy, was admitted to IMU Room 232-01 at 2231. Patient/family oriented to hospital policies and general routines including ID bracelet, bed and alarms, visiting hours, pain management, procedures, bathroom and other care routines, personal items, smoking policy, room service/diet, and visiting hours. Information on how to activate the Rapid Response Team has been discussed. Patient/Family are encouraged to report perceived risks to care and to ask questions if they do not understand what they are told or what they should do.
--- NOTE | 2024-06-28 23:45 | ECG_ITS ---
Test Date: 2024-06-28 23:53:50 Measurements Intervals Hondo Rate: 71 P: 43 VA: 177 QRS: 65 QRSD: 82 T: 266 QT: 418 QTc: 455 Interpretive Statements SINUS RHYTHM WITH ATRIAL COUPLET AND SUPRAVENTRICULAR PREMATURE COMPLEXES LEFT VENTRICULAR HYPERTROPHY AND ST-T CHANGE CANNOT R/O SEPTAL INFARCT, AGE INDETERMINATE ST-T WAVE ABNORMALITY IN ANTEROLAT/INF LEADS- CONSIDER ISCHEMIA ABNORMAL ECG Compared to ECG 06/28/2024 18:15:22 ATRIAL FIBRILLATION NO LONGER PRESENT Electronically Signed On 06-29-2024 07:48:44 PIPE WASHER by Talha Amos D.O.
[2024-06-29] VITALS (30 sets, daily range): BP systolic 94–137; BP diastolic 49–92; PULSE 58–108; RESP 16–24; TEMP 36.3–36.9; O2SAT 90–97
[2024-06-29] MEDS: AMIODARONE 360 MG/D5W 200 ML 360 MG/200 ML BAG 16.67 MG IV CONT ×2 (00:14→14:38)
[2024-06-29 01:26] LABS: Troponin I 0.027 ng/mL (0.000-0.034)
[2024-06-29 05:22] LABS: Hematocrit 32.4 % (37.0-47.0); Hemoglobin 9.8 g/dL (12.0-15.0); Immature Platelet Fraction Pct 6.7 % (0.9-11.2); Mean Corpuscular HGB Conc 30.2 g/dl (32-36); Mean Corpuscular Hemoglobin 21.2 pg (26-34); Mean Corpuscular Volume 70.1 fl (80-100); Platelet Count Result 170 k/mm3 (150-375); Red Blood Count 4.62 M/mm3 (4.2-5.4); Red Cell Distribution Width 19.5 % (11.5-14.5); White Blood Count 5.1 K/mm3 (4.5-10.0)
[2024-06-29 05:32] LABS: Alanine Aminotransferase 8 U/L (6-35); Albumin Level 3.2 g/dL (3.5-5.1); Alkaline Phosphatase 83 U/L (38-126); Anion Gap 8 mmol/L (4-12); Aspartate Amino Transferase 19 U/L (14-36); Bilirubin Indirect 1.8 mg/dL (0-1.1); Bilirubin,Total 2.6 mg/dL (0.2-1.3); Blood Urea Nitrogen 31 mg/dL (7-17); Calcium 8.8 mg/dL (8.4-10.2); Carbon Dioxide 31 mmol/L (22-30); Chloride 100 mmol/L (98-107); Estimated CRCL calculation 40 ml/min; Estimated Glomerular Filt Rate > 60; Glucose 94 mg/dL (65-110); Potassium 3.3 mmol/L (3.4-5.0); Sodium 139 mmol/L (137-145)
--- NOTE | 2024-06-29 08:30 | P.CONCA_ITS ---
Assessment and Plan Assessment and plan (1) PAF (paroxysmal atrial fibrillation): Code(s): I48.0 - Paroxysmal atrial fibrillation Status: Acute Assessment and Plan: [id number] 3. She is having intermittent atrial fib. On Amiodarone drip. Continue Amiodarone drip for at least 24 hours. Restart Metoprolol Tartate 25 mg BID. Start Eliquis 2.5 mg BID. (2) Heart failure with preserved ejection fraction (HFpEF, >= 50%): Qualifiers: Heart failure chronicity: acute on chronic Qualified Code(s): I50.33 - Acute on chronic diastolic (congestive) heart failure Code(s): I50.30 - Unspecified diastolic (congestive) heart failure Status: Acute Assessment and Plan: 06/28/24 Echo: EF 50-55%, mild LVE, diastolic dysfunction with e' .07, RV mild dysfunction, severe LaE, mod KULDEEP, mild AI, mod-severe MR, mod TR, RVSP 68 mmHg, aortic root and ascending aorta mod dilated. Continue diuresis with Lasix 40 mg IV BID. Monitor electrolytes and renal function. (3) Mitral valve regurgitation: Qualifiers: Cardiac valve disease etiology: nonrheumatic Qualified Code(s): I34.0 - Nonrheumatic mitral (valve) insufficiency Code(s): I34.0 - Nonrheumatic mitral (valve) insufficiency Status: Acute Assessment and Plan: Mod-severe. (4) Pulmonary hypertension: Code(s): I27.20 - Pulmonary hypertension, unspecified Status: Acute Assessment and Plan: Probably due to diastolic dysfunction and MR. History of Present Illness History of Present Illness Consult date/time: 06/29/24 08:30 Reason For Visit: acute chf, afib with rvr, influenza A Narrative: 88 yr old woman presents to ER with sob and edema. She has a history of dementia, Parkinson's disease. She reports having sob and edema for last 6 months that has progressively gotten worse to point of weeping from her legs. She is able to walk short distances at [facility]. She was having outpatient echo yesterday and afterwards taken to ER for sob and edema and found to go into atrial fibrillation. Currently states breathing improving. Denies chest pain. Denies palpitations, dizziness. Review of Systems 2 Review of Systems: All systems reviewed & are unremarkable except as noted in HPI and below Constitutional: Constitutional: Reports as per HPI, Denies chills and Denies fever(s) Cardiovascular: Cardiovascular: Reports as per HPI, Denies chest pain and Denies irregular heart rhythm Respiratory: Respiratory: Reports as per HPI and Reports dyspnea Gastrointestinal: Gastrointestinal: Reports as per HPI and Denies abdominal pain Genitourinary: Genitourinary: Reports as per HPI and Denies dysuria Musculoskeletal: Musculoskeletal: Reports as per HPI Neurologic: Reports as per HPI, Denies dizziness and Denies syncope [facility] Past Medical History Medical History (Updated 06/29/24 @ 08:34 by Talha Amos DO) Melanoma of eye Left eye with surgical removal 2022 Dementia Progressive memory changes Since early 2023 Hearing Loss 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 Essential hypertension Thalassemia Hypertension Parkinson disease Surgical History Surgical History (Updated 06/28/24 @ 23:48 by Kaia Graham DO) History of tonsillectomy and adenoidectomy Status post cataract extraction of both eyes with insertion of intraocular lens H/O colectomy (1995) Right hemicolectomy with end-to-end anastomosis Due to colon cancer, most recent colonoscopy 2010 Knee joint replacement status H/O: hysterectomy 1969's Hx of appendectomy Family History Family History Father Brain tumor Mother Breast cancer Grandparent Diabetes mellitus Son , at age 62 Alcoholism Dilated cardiomyopathy Social History Social History (Updated 06/29/24 @ 01:28 by Kaia Graham DO) Social History: The patient lives in [facility]. She had a daughter and a son. Her daughter is still living. She is a lifelong nonsmoker and does not drink alcohol. She ambulates with a Rollator. Code status: Full code Healthcare power of litigation attorney: Tara Lock (daughter) Smoking status: Never smoker Alcohol intake: never Substance use: never Do You Feel Safe in your Home?: Yes Lack of Transportation: No Lack of Food: Never True Current Housing: I Have Housing Concerned About Future Housing: No Difficulty Paying Gas/Electric Bills: No Difficulty Paying for Meds: No Currently Unemployed: No Education: Decline to Answer Difficulty w/ Childcare or Family Care: No Spiritual care concerns: No Meds Home Medications and Allergies Home Medications ?Medication ?Instructions ?Recorded ?Confirmed ?Type carbidopa 25 mg-levodopa 100 mg 1 tablet PO TID 09/08/21 06/28/24 History tablet carbidopa ER 50 mg-levodopa 200 mg 2 tablet PO QHS 09/08/21 06/28/24 History tablet,extended release mirtazapine 15 mg tablet 15 mg PO QHS 06/21/22 06/28/24 History acetaminophen 500 mg tablet 500 mg PO Q8H PRN pain #90 tabs 07/22/22 06/28/24 Rx gabapentin 100 mg capsule 100 mg PO DAILY 06/28/24 06/28/24 History Allergies Allergy/AdvReac Type Severity Reaction Status Date / Time Sulfa (Sulfonamide Allergy Unknown Hives Verified 06/28/24 22:52 Antibiotics) Vital Signs Vital Signs - 24 hr 06/28/24 16:55 06/28/24 17:22 06/28/24 17:22 Temperature 97.6 F Pulse Rate 112 H 130 H Respiratory Rate 27 H 20 Blood Pressure 156/98 H Pulse Oximetry 100 Oxygen Delivery Room Air 06/28/24 17:49 06/28/24 18:03 06/28/24 18:29 Temperature Pulse Rate 137 H 204 H Respiratory Rate 25 H Blood Pressure 119/94 H Pulse Oximetry 100 Oxygen Delivery Room Air 06/28/24 18:30 06/28/24 18:40 06/28/24 18:41 Temperature Pulse Rate 182 H 130 H 130 H Respiratory Rate Blood Pressure 116/62 116/62 Pulse Oximetry Oxygen Delivery 06/28/24 19:42 06/28/24 19:43 06/28/24 19:44 Temperature 97.6 F Pulse Rate 153 H 145 H 145 H Respiratory Rate 27 H Blood Pressure 120/83 Pulse Oximetry 94 Oxygen Delivery 06/28/24 19:44 06/28/24 21:54 06/28/24 22:35 Temperature 97.8 F Pulse Rate 119 H 124 H Respiratory Rate 24 H Blood Pressure 100/74 111/58 L Pulse Oximetry 94 97 Oxygen Delivery Room Air 06/28/24 22:41 06/28/24 22:45 06/28/24 23:00 Temperature 98.3 F Pulse Rate 103 H 124 H Respiratory Rate 18 Blood Pressure 111/58 L Pulse Oximetry 95 Oxygen Delivery Room Air 06/28/24 23:15 06/29/24 00:00 06/29/24 00:00 Temperature 98.5 F Pulse Rate 79 76 72 Respiratory Rate 16 Blood Pressure 94/49 L Pulse Oximetry 96 Oxygen Delivery 06/29/24 00:14 06/29/24 01:51 06/29/24 01:53 Temperature Pulse Rate 72 76 70 Respiratory Rate Blood Pressure 101/56 L 111/69 Pulse Oximetry Oxygen Delivery 06/29/24 01:57 06/29/24 03:44 06/29/24 03:46 Temperature 97.8 F Pulse Rate 76 94 64 Respiratory Rate 22 H Blood Pressure 111/69 112/52 L 112/52 L Pulse Oximetry 94 Oxygen Delivery 06/29/24 03:47 06/29/24 04:00 06/29/24 05:36 Temperature Pulse Rate 70 70 Respiratory Rate Blood Pressure Pulse Oximetry Oxygen Delivery Room Air 06/29/24 06:10 Temperature Pulse Rate 72 Respiratory Rate Blood Pressure 137/69 Pulse Oximetry Oxygen Delivery Exam 2 Const: General: cooperative, healthy appearing and comfortable Resp: Auscultation: crackles, no rhonchi and no wheezes Cardio: Rate: regular rate Rhythm: regular rhythm Heart sounds: no murmurs GI: GI Palp: No abdominal tenderness and Yes Soft to palpation Neuro: General: oriented to person, oriented to place and oriented to time Extrem: Right lower extremity: edema Left lower extremity: edema Other: Moderate edema of both legs Results Labs and Meds 06/29/24 04:58 06/29/24 04:58 Lab results: Cardiac Enzymes 06/28/24 06/29/24 06/29/24 Range/Units 17:57 00:35 04:58 AST 21 19 (14-36) U/L Troponin I 0.019 0.027 D (0.000-0.034) ng/mL Coagulation 06/28/24 Range/Units 17:57 PT 14.6 (11.1-14.7) Seconds APTT 36.6 (22.3-36.8) Seconds CBC 06/28/24 06/29/24 Range/Units 17:57 04:58 WBC 6.6 5.1 (4.5-10.0) K/mm3 RBC 5.27 4.62 (4.2-5.4) M/mm3 Hgb 11.1 L 9.8 L (12.0-15.0) g/dL Hct 36.8 L 32.4 L (37.0-47.0) % Plt Count 200 170 (150-375) k/mm3 Lymph # (Auto) Not Reportable Sanders # (Auto) Not Reportable Eos # (Auto) Not Reportable Baso # (Auto) Not Reportable Comprehensive Metabolic Panel 06/28/24 06/29/24 Range/Units 17:57 04:58 Sodium 140 139 (137-145) mmol/L Potassium 4.1 3.3 L (3.4-5.0) mmol/L Chloride 102 100 (98-107) mmol/L Carbon Dioxide 26 31 H (22-30) mmol/L BUN 30 H 31 H (7-17) mg/dL Creatinine 0.57 L 0.76 (0.7-1.0) mg/dL Glucose 97 94 (65-110) mg/dL Calcium 9.5 8.8 (8.4-10.2) mg/dL Indirect Bilirubin 1.8 H (0-1.1) mg/dL AST 21 19 (14-36) U/L ALT 10 8 (6-35) U/L Alkaline Phosphatase 106 83 (38-126) U/L Total Protein 7.0 6.0 L (6.3-8.2) g/dL Albumin 3.9 3.2 L (3.5-5.1) g/dL Intake and Output 06/28/24 06/29/24 06/29/24 23:59 07:59 15:59 Intake Total 230.5 318.9 Output Total 550 Balance 230.5 -231.1 Intake: IV 230.5 98.9 Amiodarone 150 mg/D5w 100 ml 100 150 mg In 100 ml @ 15 MG/MIN 600 mls/hr IV CONT .Q10M ONE Rx #:[id number] Amiodarone 360 mg/D5w 200 ml 130.5 98.9 360 mg In 200 ml @ 0.5 MG/MIN 16.667 mls/hr IV CONT .Q12H REPLACED BY [facility] Rx#:[id number] Oral 220 Output: Urine 550 Patient Weight 06/29/24 23:59 Weight 56.1 kg
[2024-06-29] MEDS: GABAPENTIN 100 MG CAPSULE PO (09:07)
[2024-06-29] MEDS: OSELTAMIVIR PHOSPHATE 30 MG CAPSULE PO ×2 (09:07→20:42)
[2024-06-29] MEDS: METOPROLOL TARTRATE 25 MG TABLET PO ×2 (09:08→20:42)
[2024-06-29] MEDS: CARBIDOPA/LEVODOPA 25/100 MG TABLET 3 TABLET PO ×3 (09:08→18:09)
[2024-06-29] MEDS: APIXABAN 2.5 MG TABLET PO ×2 (09:08→20:42)
[2024-06-29] MEDS: FUROSEMIDE INJ 40 MG/4 ML VIAL IV PUSH ×2 (09:10→20:42)
--- NOTE | 2024-06-29 10:38 | P.PNIM_ITS ---
Progress Note: A&P Assessment and Plan (1) Severe pulmonary hypertension: Code(s): I27.20 - Pulmonary hypertension, unspecified Status: Acute (2) Right-sided heart failure: Qualifiers: Heart failure chronicity: acute on chronic Qualified Code(s): I50.813 - Acute on chronic right heart failure Code(s): I50.810 - Right heart failure, unspecified Status: Acute (3) Heart failure with preserved ejection fraction (HFpEF, >= 50%): Qualifiers: Heart failure chronicity: acute on chronic Qualified Code(s): I50.33 - Acute on chronic diastolic (congestive) heart failure Code(s): I50.30 - Unspecified diastolic (congestive) heart failure Status: Acute (4) Atrial fibrillation with rapid ventricular response: Code(s): I48.91 - Unspecified atrial fibrillation Status: Acute (5) Paroxysmal atrial fibrillation with RVR: Code(s): I48.0 - Paroxysmal atrial fibrillation Status: Acute (6) Mitral valve regurgitation: Qualifiers: Cardiac valve disease etiology: nonrheumatic Qualified Code(s): I34.0 - Nonrheumatic mitral (valve) insufficiency Code(s): I34.0 - Nonrheumatic mitral (valve) insufficiency Status: Acute (7) Hyperbilirubinemia: Code(s): E80.6 - Other disorders of bilirubin metabolism Status: Acute (8) Influenza A: Code(s): J10.1 - Influenza due to other identified influenza virus with other respiratory manifestations Status: Acute Plan acute exacerbation of combined heart failure 06/28/24 Echo: EF 50-55%, mild LVE, diastolic dysfunction RV mild dysfunction, severe LaE, mod KULDEEP, mild AI, mod-severe MR, mod TR, RVSP 68 mmHg, aortic root and ascending aorta mod dilated. Likely resulting from fluid overload and uncontrolled heart rate Continue Lasix 40 mg b.i.d. IV push AFib RVR Patient received digoxin and oral metoprolol in the ER per cardiology recommendations. Rate was not controlled, patient was started on amiodarone drip. Consult email deployment specialist, further management per email deployment specialist mild hyperbilirubinemia increased over recent months. likely due to passive congestive of the liver. CMP and indirect bilirubin. right upper quadrant ultrasound. Hypokalemia Replete with potassium chloride 40 mg daily p.o. Patient positive for influenza a. Tamiflu 30 mg p.o. b.i.d. Acute enteritis Patient is having diarrhea most likely due to influenza a/viral illness. C diff and stool cultures pending. Goals of care discussion was had with the patient's daughter/POA. remain full code at this time Subjective Date/time seen: 06/29/24 10:38 Interval history: Patient feels better today, still has a cough, improving, denies chest pain, palpitation. Patient is afebrile, blood pressure stable. Heart rate control Exam Narrative: GENERAL: Pleasant, in no acute distress. Well-nourished. - EYES: EOMI. Anicteric. - HENT: Moist mucous membranes. - LUNGS: Coarse breath sound bilaterall y no wheezing, rhonchi, or rales. - CARDIOVASCULAR: Irregular and irregul ar rhythm No murmur. No JVD. - ABDOMEN: Soft, non-tender and non-dist ended. No palpable masses. - EXTREMITIES: No edema. Peripheral puls es 2+. Non-tender. - NEUROLOGIC: No focal neurological defi cits. CN II-XII grossly intact. - PSYCHIATRIC: Awake, Alert and oriented x 3. Appropriate mood and affect. - SKIN: No rashes or lesions. Warm. - LYMPH: No cervical lymphadenopathy. Objective Data Vital Signs Vital Signs: Vital Signs - 24 hr 06/28/24 16:55 06/28/24 17:22 06/28/24 17:22 Temperature 97.6 F Pulse Rate 112 H 130 H Respiratory Rate 27 H 20 Blood Pressure 156/98 H Pulse Oximetry 100 Oxygen Delivery Room Air 06/28/24 17:49 06/28/24 18:03 06/28/24 18:29 Temperature Pulse Rate 137 H 204 H Respiratory Rate 25 H Blood Pressure 119/94 H Pulse Oximetry 100 Oxygen Delivery Room Air 06/28/24 18:30 06/28/24 18:40 06/28/24 18:41 Temperature Pulse Rate 182 H 130 H 130 H Respiratory Rate Blood Pressure 116/62 116/62 Pulse Oximetry Oxygen Delivery 06/28/24 19:42 06/28/24 19:43 06/28/24 19:44 Temperature 97.6 F Pulse Rate 153 H 145 H 145 H Respiratory Rate 27 H Blood Pressure 120/83 Pulse Oximetry 94 Oxygen Delivery 06/28/24 19:44 06/28/24 21:54 06/28/24 22:35 Temperature 97.8 F Pulse Rate 119 H 124 H Respiratory Rate 24 H Blood Pressure 100/74 111/58 L Pulse Oximetry 94 97 Oxygen Delivery Room Air 06/28/24 22:41 06/28/24 22:45 06/28/24 23:00 Temperature 98.3 F Pulse Rate 103 H 124 H Respiratory Rate 18 Blood Pressure 111/58 L Pulse Oximetry 95 Oxygen Delivery Room Air 06/28/24 23:15 06/29/24 00:00 06/29/24 00:00 Temperature 98.5 F Pulse Rate 79 76 72 Respiratory Rate 16 Blood Pressure 94/49 L Pulse Oximetry 96 Oxygen Delivery 06/29/24 00:14 06/29/24 01:51 06/29/24 01:53 Temperature Pulse Rate 72 76 70 Respiratory Rate Blood Pressure 101/56 L 111/69 Pulse Oximetry Oxygen Delivery 06/29/24 01:57 06/29/24 03:44 06/29/24 03:46 Temperature 97.8 F Pulse Rate 76 94 64 Respiratory Rate 22 H Blood Pressure 111/69 112/52 L 112/52 L Pulse Oximetry 94 Oxygen Delivery 06/29/24 03:47 06/29/24 04:00 06/29/24 05:36 Temperature Pulse Rate 70 70 Respiratory Rate Blood Pressure Pulse Oximetry Oxygen Delivery Room Air 06/29/24 06:10 06/29/24 08:00 06/29/24 09:08 Temperature Pulse Rate 72 101 H Respiratory Rate Blood Pressure 137/69 Pulse Oximetry Oxygen Delivery Room Air Intake/Output Intake/Output: Intake & Output 06/26/24 06/27/24 06/28/24 06/29/24 23:59 23:59 23:59 23:59 Intake Total 230.5 318.9 Output Total 550 Balance 230.5 -231.1 Meds/Results Medications: Active Medications Generic Name Dose Route Start Last Admin Trade Name Freq PRN Reason Stop Dose Admin Acetaminophen 650 mg 06/28/24 20:17 Acetaminophen 325 Mg Tablet PO Q4H PRN Mild Pain (1-3) or Fever Apixaban 2.5 mg 06/29/24 09:00 06/29/24 09:08 Apixaban 2.5 Mg Tablet PO 2.5 mg Q12HR LIZA Administration Carbidopa/Levodopa 2 tablet 06/28/24 23:40 06/29/24 00:10 Carbidopa/Levodopa 25/100 Mg Cr Tablet PO Not Given QHS LIZA Carbidopa/Levodopa 3 tablet 06/29/24 08:00 06/29/24 09:08 Carbidopa/Levodopa 25/100 Mg Tablet PO 3 tablet 0800,1200,1800 LIZA Administration Dextrose 12.5 gm 06/28/24 20:17 Dextrose 50% 25 Gm/50 Ml Syringe IV PUSH PRN PRN Hypoglycemia Protocol Furosemide 40 mg 06/28/24 21:00 06/29/24 09:10 Furosemide Inj 40 Mg/4 Ml Vial IV PUSH 40 mg Q12HR LIZA Administration Gabapentin 100 mg 06/29/24 09:00 06/29/24 09:07 Gabapentin 100 Mg Capsule PO 100 mg DAILY LIZA Administration Glucagon 1 mg 06/28/24 20:17 Glucagon For Inj 1 Mg Vial IM PRN PRN Hypoglycemia Protocol Glucose 15 gm 06/28/24 20:17 Glucose Oral Gel 15 Gm Of Glucse In 37.5 Gm Tube PO PRN PRN Hypoglycemia Protocol Amiodarone HCl/Dextrose 360 mg in 200 mls @ 16.667 mls/hr 06/29/24 00:26 06/29/24 06:10 Nexterone 360 Mg/D5w 200 Ml IV CONT 0.5 mg/min .Q12H LIZA 16.67 mls/hr Infusion 0.5 MG/MIN Dextrose 1,000 mls @ 100 mls/hr 06/28/24 20:17 Dextrose 5% 1,000 Ml IVPB PRN PRN Hypoglycemia Protocol Metoprolol Tartrate 25 mg 06/29/24 09:00 06/29/24 09:08 Metoprolol Tartrate 25 Mg Tablet PO 25 mg Q12HR LIZA Administration Mirtazapine 15 mg 06/28/24 23:40 06/29/24 00:10 Mirtazapine 15 Mg Tablet PO Not Given QHS [facility] Ondansetron HCl 4 mg 06/28/24 20:17 Ondansetron Inj 4 Mg/2 Ml Vial IV PUSH Q4H PRN Nausea Oseltamivir Phosphate 30 mg 06/28/24 21:00 06/29/24 09:07 Oseltamivir Phosphate 30 Mg Capsule PO 07/03/24 20:59 30 mg Q12HR LIZA Administration Radiology Results: ITS Impressions Chest X-Ray 06/28/24 16:50 IMPRESSION: Mild pulmonary vascular congestion with a small right-sided pleural effusion. Venous Doppler Study 06/28/24 16:58 IMPRESSION: 1. No deep venous thrombosis in either lower limb. Labs Labs: Laboratory Results - last 24 hr 06/28/24 06/29/24 06/29/24 17:57 00:35 04:58 WBC 6.6 5.1 RBC 5.27 4.62 Hgb 11.1 L 9.8 L Hct 36.8 L 32.4 L MCV 69.8 L 70.1 L MCH 21.1 L 21.2 L MCHC 30.2 L 30.2 L RDW 20.4 H 19.5 H Plt Count 200 170 MPV TNP TNP Immature Gran % (Auto) Not Reportable Neut % (Auto) Not Reportable Lymph % (Auto) Not Reportable [place] % (Auto) Not Reportable Eos % (Auto) Not Reportable Baso % (Auto) Not Reportable Lymph # (Auto) Not Reportable [place] # (Auto) Not Reportable Eos # (Auto) Not Reportable Baso # (Auto) Not Reportable Abs Immat Gran (auto) Not Reportable Absolute Neuts (auto) Not Reportable Absolute Nucleated RBC Not Reportable Total Counted 100 Neutrophils % (Manual) 82 H Lymphocytes % (Manual) 7.0 L Monocytes % (Manual) 11 H Nucleated RBC % Not Reportable Abs Lymphs (Manual) 0.46 L Abs Monocytes (Manual) 0.72 Platelet Estimate Adequate % Immature Plt Fraction 5.9 6.7 Hypochromasia 1+ Anisocytosis 2+ Schistocytes 2+ PT 14.6 INR 1.1 APTT 36.6 Sodium 140 139 Potassium 4.1 3.3 L Chloride 102 100 Carbon Dioxide 26 31 H Anion Gap 12 8 BUN 30 H 31 H Creatinine 0.57 L 0.76 Estim Creat Clear Calc 51 40 Estimated GFR > 60 > 60 Glucose 97 94 Calcium 9.5 8.8 Magnesium 2.2 Total Bilirubin 4.0 H 2.6 H Indirect Bilirubin 1.8 H AST 21 19 ALT 10 8 Alkaline Phosphatase 106 83 Troponin I 0.019 0.027 D NT-Pro-B Natriuret Pep 08848 H Total Protein 7.0 6.0 L Albumin 3.9 3.2 L Influenza A (RT-PCR) Positive A Influenza B (RT-PCR) Negative RSV (RT-PCR) Negative SARS-CoV-2 RNA (RT-PCR) Negative
[2024-06-29] MEDS: LEVALBUTEROL NEB 1.25 MG/3 ML INHALATION ×3 (12:31→19:47)
--- NOTE | 2024-06-29 12:43 | PCRCNOTE ---
Window of time for administration has passed. See next scheduled administration.
[2024-06-29] MEDS: POTASSIUM CHLORIDE 20 MEQ PACKET (FOR LIQUID) 40 MEQ PO (14:38)
[2024-06-29] MEDS: CARBIDOPA/LEVODOPA 25/100 MG CR TABLET 2 TABLET PO (20:42)
[2024-06-29] MEDS: MIRTAZAPINE 15 MG TABLET PO (20:42)
[2024-06-30] VITALS (30 sets, daily range): BP systolic 102–140; BP diastolic 47–84; PULSE 57–102; RESP 16–24; TEMP 36.3–36.7; O2SAT 92–98
[2024-06-30] MEDS: LEVALBUTEROL NEB 1.25 MG/3 ML INHALATION ×5 (01:47→22:08)
[2024-06-30] MEDS: AMIODARONE 360 MG/D5W 200 ML 360 MG/200 ML BAG 16.67 MG IV CONT (03:18)
--- NOTE | 2024-06-30 08:01 | P.PNIM_ITS ---
Progress Note: A&P Assessment and Plan (1) Severe pulmonary hypertension: Code(s): I27.20 - Pulmonary hypertension, unspecified Status: Acute (2) Right-sided heart failure: Qualifiers: Heart failure chronicity: acute on chronic Qualified Code(s): I50.813 - Acute on chronic right heart failure Code(s): I50.810 - Right heart failure, unspecified Status: Acute (3) Heart failure with preserved ejection fraction (HFpEF, >= 50%): Qualifiers: Heart failure chronicity: acute on chronic Qualified Code(s): I50.33 - Acute on chronic diastolic (congestive) heart failure Code(s): I50.30 - Unspecified diastolic (congestive) heart failure Status: Acute (4) Atrial fibrillation with rapid ventricular response: Code(s): I48.91 - Unspecified atrial fibrillation Status: Acute (5) Paroxysmal atrial fibrillation with RVR: Code(s): I48.0 - Paroxysmal atrial fibrillation Status: Acute (6) Mitral valve regurgitation: Qualifiers: Cardiac valve disease etiology: nonrheumatic Qualified Code(s): I34.0 - Nonrheumatic mitral (valve) insufficiency Code(s): I34.0 - Nonrheumatic mitral (valve) insufficiency Status: Acute (7) Hyperbilirubinemia: Code(s): E80.6 - Other disorders of bilirubin metabolism Status: Acute (8) Influenza A: Code(s): J10.1 - Influenza due to other identified influenza virus with other respiratory manifestations Status: Acute Plan acute exacerbation of combined heart failure 06/28/24 Echo: EF 50-55%, mild LVE, diastolic dysfunction RV mild dysfunction, severe LaE, mod KULDEEP, mild AI, mod-severe MR, mod TR, RVSP 68 mmHg, aortic root and ascending aorta mod dilated. BNP 11600 upon arrival Likely resulting from fluid overload and uncontrolled heart rate Patient still fluid overloaded Continue Lasix 40 mg b.i.d. IV push AFib RVR Patient received digoxin and oral metoprolol in the ER per cardiology recommendations. Rate was not controlled, patient was started on amiodarone drip. Consult pick pulling machine operator, further management per pick pulling machine operator hyperbilirubinemia increased over recent months. likely due to passive congestive of the liver. CMP and indirect bilirubin. right upper quadrant ultrasound pending. Hypokalemia Replete with potassium chloride 40 mg daily p.o. Patient positive for influenza a. Tamiflu 30 mg p.o. b.i.d. Acute enteritis Patient is having diarrhea most likely due to influenza a/viral illness. C diff and stool cultures pending. Chronic anemia Close baseline Given elevated indirect bilirubin, ordered LDH, haptoglobin, reticulocyte, iron panel, and stool guaiac Goals of care discussion was had with the patient's daughter/POA. remain full code at this time Subjective Date/time seen: 06/30/24 08:01 Interval history: Patient feels better today, feels better today, has general weakness, appetite is improving. Patient still has cough and shortness breath with exertion, she denies chest pain, palpitation. Patient is afebrile, blood pressure stable. Heart rate control Exam Narrative: GENERAL: Pleasant, in no acute distress. Well-nourished. - EYES: EOMI. Anicteric. - HENT: Moist mucous membranes. - LUNGS: Coarse breath sound bilaterall y no wheezing, rhonchi, or rales. - CARDIOVASCULAR: Irregular and irregul ar rhythm No murmur. No JVD. - ABDOMEN: Soft, non-tender and non-dist ended. No palpable masses. - EXTREMITIES: No edema. Peripheral puls es 2+. Non-tender. - NEUROLOGIC: No focal neurological defi cits. CN II-XII grossly intact. - PSYCHIATRIC: Awake, Alert and oriented x 3. Appropriate mood and affect. - SKIN: No rashes or lesions. Warm. - LYMPH: No cervical lymphadenopathy. Objective Data Vital Signs Vital Signs: Vital Signs - 24 hr 06/29/24 09:08 06/29/24 10:00 06/29/24 10:00 Temperature 97.8 F Pulse Rate 101 H 94 80 Respiratory Rate 24 H Blood Pressure 129/76 Pulse Oximetry 90 Oxygen Delivery 06/29/24 10:00 06/29/24 12:00 06/29/24 12:00 Temperature 97.5 F L Pulse Rate 83 59 L 59 L Respiratory Rate 24 H Blood Pressure 125/69 Pulse Oximetry 92 Oxygen Delivery 06/29/24 12:00 06/29/24 12:00 06/29/24 12:14 Temperature Pulse Rate 61 59 L Respiratory Rate Blood Pressure Pulse Oximetry Oxygen Delivery Room Air 06/29/24 12:31 06/29/24 12:48 06/29/24 14:00 Temperature 97.4 F L Pulse Rate 60 61 68 Respiratory Rate 20 20 20 Blood Pressure 118/66 Pulse Oximetry 96 Oxygen Delivery 06/29/24 14:00 06/29/24 14:38 06/29/24 16:00 Temperature Pulse Rate 106 H 96 91 Respiratory Rate Blood Pressure Pulse Oximetry Oxygen Delivery 06/29/24 16:00 06/29/24 16:00 06/29/24 16:00 Temperature 98.3 F Pulse Rate 79 68 Respiratory Rate 16 Blood Pressure 127/76 Pulse Oximetry 97 Oxygen Delivery Room Air 06/29/24 16:56 06/29/24 17:04 06/29/24 18:00 Temperature 97.7 F Pulse Rate 70 70 108 H Respiratory Rate 20 20 20 Blood Pressure 130/81 Pulse Oximetry 96 Oxygen Delivery 06/29/24 18:00 06/29/24 18:00 06/29/24 19:47 Temperature Pulse Rate 84 82 61 Respiratory Rate 20 Blood Pressure Pulse Oximetry Oxygen Delivery 06/29/24 19:55 06/29/24 20:00 06/29/24 20:00 Temperature 98.1 F Pulse Rate 85 70 Respiratory Rate 20 18 Blood Pressure 134/74 Pulse Oximetry 94 Oxygen Delivery Room Air 06/29/24 20:00 06/29/24 20:42 06/29/24 20:55 Temperature Pulse Rate 69 70 70 Respiratory Rate Blood Pressure 135/77 Pulse Oximetry Oxygen Delivery 06/29/24 22:00 06/29/24 22:00 06/29/24 22:00 Temperature Pulse Rate 70 70 Respiratory Rate Blood Pressure 116/66 116/66 Pulse Oximetry 94 Oxygen Delivery 06/29/24 23:38 06/30/24 00:00 06/30/24 00:00 Temperature 97.5 F L Pulse Rate 61 61 Respiratory Rate 22 H Blood Pressure 102/53 L 102/53 L Pulse Oximetry 94 Oxygen Delivery Room Air 06/30/24 00:00 06/30/24 01:48 06/30/24 02:00 Temperature Pulse Rate 74 70 70 Respiratory Rate 20 Blood Pressure 138/60 Pulse Oximetry Oxygen Delivery 06/30/24 02:00 06/30/24 02:09 06/30/24 02:39 Temperature Pulse Rate 61 61 71 Respiratory Rate Blood Pressure 138/60 125/58 L Pulse Oximetry Oxygen Delivery 06/30/24 03:18 06/30/24 03:44 06/30/24 04:00 Temperature 98 F Pulse Rate 71 70 Respiratory Rate 18 Blood Pressure 125/58 L 128/53 L Pulse Oximetry 95 Oxygen Delivery Room Air 06/30/24 04:00 06/30/24 06:00 06/30/24 06:21 Temperature Pulse Rate 68 81 93 Respiratory Rate Blood Pressure 140/74 Pulse Oximetry Oxygen Delivery Intake/Output Intake/Output: Intake & Output 06/27/24 06/28/24 06/29/24 06/30/24 23:59 23:59 23:59 23:59 Intake Total 230.5 1752.8 408.0 Output Total 1350 700 Balance 230.5 402.8 -292.0 Meds/Results Medications: Active Medications Generic Name Dose Route Start Last Admin Trade Name Freq PRN Reason Stop Dose Admin Acetaminophen 650 mg 06/28/24 20:17 Acetaminophen 325 Mg Tablet PO Q4H PRN Mild Pain (1-3) or Fever Apixaban 2.5 mg 06/29/24 09:00 06/29/24 20:42 Apixaban 2.5 Mg Tablet PO 2.5 mg Q12HR LIZA Administration Carbidopa/Levodopa 2 tablet 06/28/24 23:40 06/29/24 20:42 Carbidopa/Levodopa 25/100 Mg Cr Tablet PO 2 tablet QHS LIZA Administration Carbidopa/Levodopa 3 tablet 06/29/24 08:00 06/29/24 18:09 Carbidopa/Levodopa 25/100 Mg Tablet PO 3 tablet 0800,1200,1800 LIZA Administration Dextrose 12.5 gm 06/28/24 20:17 Dextrose 50% 25 Gm/50 Ml Syringe IV PUSH PRN PRN Hypoglycemia Protocol Furosemide 40 mg 06/28/24 21:00 06/29/24 20:42 Furosemide Inj 40 Mg/4 Ml Vial IV PUSH 40 mg Q12HR LIZA Administration Gabapentin 100 mg 06/29/24 09:00 06/29/24 09:07 Gabapentin 100 Mg Capsule PO 100 mg DAILY LIZA Administration Glucagon 1 mg 06/28/24 20:17 Glucagon For Inj 1 Mg Vial IM PRN PRN Hypoglycemia Protocol Glucose 15 gm 06/28/24 20:17 Glucose Oral Gel 15 Gm Of Glucse In 37.5 Gm Tube PO PRN PRN Hypoglycemia Protocol Amiodarone HCl/Dextrose 360 mg in 200 mls @ 16.667 mls/hr 06/29/24 00:26 06/30/24 06:21 Nexterone 360 Mg/D5w 200 Ml IV CONT 0.5 mg/min .Q12H LIZA 16.67 mls/hr Infusion 0.5 MG/MIN Dextrose 1,000 mls @ 100 mls/hr 06/28/24 20:17 Dextrose 5% 1,000 Ml IVPB PRN PRN Hypoglycemia Protocol Levalbuterol HCl 1.25 mg 06/29/24 12:30 06/30/24 01:47 Levalbuterol Neb 1.25 Mg/3 Ml INHALATION 1.25 mg Q4HRT LIZA Administration Metoprolol Tartrate 25 mg 06/29/24 09:00 06/29/24 20:42 Metoprolol Tartrate 25 Mg Tablet PO 25 mg Q12HR LIZA Administration Mirtazapine 15 mg 06/28/24 23:40 06/29/24 20:42 Mirtazapine 15 Mg Tablet PO 15 mg QHS LIZA Administration Ondansetron HCl 4 mg 06/28/24 20:17 Ondansetron Inj 4 Mg/2 Ml Vial IV PUSH Q4H PRN Nausea Oseltamivir Phosphate 30 mg 06/28/24 21:00 06/29/24 20:42 Oseltamivir Phosphate 30 Mg Capsule PO 07/03/24 20:59 30 mg Q12HR LIZA Administration Potassium Chloride 40 meq 06/29/24 10:50 06/29/24 14:38 Potassium Chloride 20 Meq Packet (For Liquid) PO 40 meq DAILY LIZA Administration Radiology Results: ITS Impressions Chest X-Ray 06/28/24 16:50 IMPRESSION: Mild pulmonary vascular congestion with a small right-sided pleural effusion. Venous Doppler Study 06/28/24 16:58 IMPRESSION: 1. No deep venous thrombosis in either lower limb.
--- NOTE | 2024-06-30 08:32 | ECG_ITS ---
Test Date: 2024-06-30 10:30:43 Measurements Intervals [place] Rate: 61 P: 56 UT: 178 QRS: 38 QRSD: 82 T: -81 QT: 460 QTc: 466 Interpretive Statements SINUS RHYTHM WITH OCCASIONAL ECTOPIC PREMATURE COMPLEXES LEFT VENTRICULAR HYPERTROPHY AND ST-T CHANGE CANNOT R/O SEPTAL INFARCT, AGE INDETERMINATE ST-T WAVE ABNORMALITY IN ANT/INF LEADS- CONSIDER ISCHEMIA ABNORMAL ECG Compared to ECG 06/28/2024 23:53:50 NO SIGNIFICANT CHANGE Electronically Signed On 06-30-2024 15:39:25 SYSTEM ARCHIVE ANALYST by Talha Amos D.O.
[2024-06-30 08:49] LABS: Immature Reticulocyte Fraction 7.8 % (3.0-15.9); Reticulocyte Hemoglobin Conten 22.3 pg (28.2-36.6); Reticulocyte Percent 0.72 % (0.7-4.3); Reticulocytes Absolute 0.03 10^6/uL (0.02-0.10)
[2024-06-30] MEDS: GABAPENTIN 100 MG CAPSULE PO (08:57)
[2024-06-30] MEDS: APIXABAN 2.5 MG TABLET PO ×2 (08:57→19:42)
[2024-06-30] MEDS: CARBIDOPA/LEVODOPA 25/100 MG TABLET 3 TABLET PO ×3 (08:57→18:03)
[2024-06-30] MEDS: POTASSIUM CHLORIDE 20 MEQ PACKET (FOR LIQUID) 40 MEQ PO (08:58)
[2024-06-30] MEDS: METOPROLOL TARTRATE 25 MG TABLET PO ×2 (08:58→19:43)
[2024-06-30] MEDS: FUROSEMIDE INJ 40 MG/4 ML VIAL IV PUSH ×2 (08:58→19:42)
[2024-06-30] MEDS: OSELTAMIVIR PHOSPHATE 30 MG CAPSULE PO ×2 (08:58→19:42)
[2024-06-30 09:02] LABS: Iron 28 ug/dL (37-170)
[2024-06-30 09:05] LABS: Alanine Aminotransferase 10 U/L (6-35); Albumin Level 3.3 g/dL (3.5-5.1); Alkaline Phosphatase 85 U/L (38-126); Anion Gap 5 mmol/L (4-12); Aspartate Amino Transferase 17 U/L (14-36); Bilirubin,Total 2.3 mg/dL (0.2-1.3); Blood Urea Nitrogen 27 mg/dL (7-17); Calcium 8.5 mg/dL (8.4-10.2); Carbon Dioxide 37 mmol/L (22-30); Chloride 96 mmol/L (98-107); Estimated CRCL calculation 41 ml/min; Estimated Glomerular Filt Rate > 60; Glucose 142 mg/dL (65-110); Lactate Dehydrogenase 184 U/L (120-246); Magnesium 1.9 mg/dL (1.6-2.3); Potassium 3.1 mmol/L (3.4-5.0); Sodium 138 mmol/L (137-145)
[2024-06-30 09:12] LABS: Percent Iron Saturation 9 % (20-50)
[2024-06-30 09:13] LABS: NT Pro B Type Natriuretic Pept 8730 pg/mL (19.9-100)
--- NOTE | 2024-06-30 09:18 | PM.PNCARD ---
Progress Note: A&P Assessment and Plan (1) PAF (paroxysmal atrial fibrillation): Code(s): I48.0 - Paroxysmal atrial fibrillation Status: Acute Assessment and Plan: In Sinus rhythm. [id number] 3. She is having intermittent atrial fib. On Amiodarone drip. Continue Amiodarone drip for at least 24 hours. On Metoprolol Tartate 25 mg BID. On Eliquis 2.5 mg BID. Stop Amiodarone drip. Start Amiodarone 200 mg PO BID to maintain sinus rhythm. (2) Heart failure with preserved ejection fraction (HFpEF, >= 50%): Qualifiers: Heart failure chronicity: acute on chronic Qualified Code(s): I50.33 - Acute on chronic diastolic (congestive) heart failure Code(s): I50.30 - Unspecified diastolic (congestive) heart failure Status: Acute Assessment and Plan: 06/28/24 Echo: EF 50-55%, mild LVE, diastolic dysfunction with e' .07, RV mild dysfunction, severe LaE, mod KULDEEP, mild AI, mod-severe MR, mod TR, RVSP 68 mmHg, aortic root and ascending aorta mod dilated. Continue diuresis with Lasix 40 mg IV BID. Monitor electrolytes and renal function. Start Spironolactone 12.5 mg daily. (3) Mitral valve regurgitation: Qualifiers: Cardiac valve disease etiology: nonrheumatic Qualified Code(s): I34.0 - Nonrheumatic mitral (valve) insufficiency Code(s): I34.0 - Nonrheumatic mitral (valve) insufficiency Status: Acute Assessment and Plan: Mod-severe. (4) Pulmonary hypertension: Code(s): I27.20 - Pulmonary hypertension, unspecified Status: Acute Assessment and Plan: Probably due to diastolic dysfunction and MR. Subjective Date/time seen: 06/30/24 09:18 Interval history: Denies chest pain or sob today. Exam Const: General: cooperative, healthy appearing and comfortable Orientation/consciousness: oriented to person, oriented to place and oriented to time Resp: Auscultation: crackles, no rhonchi and no wheezes Cardio: Rate: tachycardic Rhythm: regular rhythm Heart sounds: no murmurs Neuro: General: oriented to person, oriented to place and oriented to time Extrem: Right lower extremity: edema Left lower extremity: edema Other: Moderate edema of both legs Objective Data Vital Signs Vital Signs: Vital Signs - 24 hr 06/29/24 10:00 06/29/24 10:00 06/29/24 10:00 Temperature 97.8 F Pulse Rate 94 80 83 Respiratory Rate 24 H Blood Pressure 129/76 Pulse Oximetry 90 Oxygen Delivery Fraction of Inspired Oxygen 06/29/24 12:00 06/29/24 12:00 06/29/24 12:00 Temperature 97.5 F L Pulse Rate 59 L 59 L 61 Respiratory Rate 24 H Blood Pressure 125/69 Pulse Oximetry 92 Oxygen Delivery Fraction of Inspired Oxygen 06/29/24 12:00 06/29/24 12:14 06/29/24 12:31 Temperature Pulse Rate 59 L 60 Respiratory Rate 20 Blood Pressure Pulse Oximetry Oxygen Delivery Room Air Fraction of Inspired Oxygen 06/29/24 12:48 06/29/24 14:00 06/29/24 14:00 Temperature 97.4 F L Pulse Rate 61 68 106 H Respiratory Rate 20 20 Blood Pressure 118/66 Pulse Oximetry 96 Oxygen Delivery Fraction of Inspired Oxygen 06/29/24 14:38 06/29/24 16:00 06/29/24 16:00 Temperature Pulse Rate 96 91 Respiratory Rate Blood Pressure Pulse Oximetry Oxygen Delivery Room Air Fraction of Inspired Oxygen 06/29/24 16:00 06/29/24 16:00 06/29/24 16:56 Temperature 98.3 F Pulse Rate 79 68 70 Respiratory Rate 16 20 Blood Pressure 127/76 Pulse Oximetry 97 Oxygen Delivery Fraction of Inspired Oxygen 06/29/24 17:04 06/29/24 18:00 06/29/24 18:00 Temperature 97.7 F Pulse Rate 70 108 H 84 Respiratory Rate 20 20 Blood Pressure 130/81 Pulse Oximetry 96 Oxygen Delivery Fraction of Inspired Oxygen 06/29/24 18:00 06/29/24 19:47 06/29/24 19:55 Temperature Pulse Rate 82 61 85 Respiratory Rate 20 20 Blood Pressure Pulse Oximetry Oxygen Delivery Fraction of Inspired Oxygen 06/29/24 20:00 06/29/24 20:00 06/29/24 20:00 Temperature 98.1 F Pulse Rate 70 69 Respiratory Rate 18 Blood Pressure 134/74 Pulse Oximetry 94 Oxygen Delivery Room Air Fraction of Inspired Oxygen 06/29/24 20:42 06/29/24 20:55 06/29/24 22:00 Temperature Pulse Rate 70 70 Respiratory Rate Blood Pressure 135/77 116/66 Pulse Oximetry 94 Oxygen Delivery Fraction of Inspired Oxygen 06/29/24 22:00 06/29/24 22:00 06/29/24 23:38 Temperature 97.5 F L Pulse Rate 70 70 61 Respiratory Rate 22 H Blood Pressure 116/66 102/53 L Pulse Oximetry 94 Oxygen Delivery Fraction of Inspired Oxygen 06/30/24 00:00 06/30/24 00:00 06/30/24 00:00 Temperature Pulse Rate 61 74 Respiratory Rate Blood Pressure 102/53 L Pulse Oximetry Oxygen Delivery Room Air Fraction of Inspired Oxygen 06/30/24 01:48 06/30/24 02:00 06/30/24 02:00 Temperature Pulse Rate 70 70 61 Respiratory Rate 20 Blood Pressure 138/60 Pulse Oximetry Oxygen Delivery Fraction of Inspired Oxygen 06/30/24 02:09 06/30/24 02:39 06/30/24 03:18 Temperature Pulse Rate 61 71 71 Respiratory Rate Blood Pressure 138/60 125/58 L 125/58 L Pulse Oximetry Oxygen Delivery Fraction of Inspired Oxygen 06/30/24 03:44 06/30/24 04:00 06/30/24 04:00 Temperature 98 F Pulse Rate 70 68 Respiratory Rate 18 Blood Pressure 128/53 L Pulse Oximetry 95 Oxygen Delivery Room Air Fraction of Inspired Oxygen 06/30/24 06:00 06/30/24 06:21 06/30/24 08:00 Temperature 98.1 F Pulse Rate 81 93 100 Respiratory Rate 16 Blood Pressure 140/74 137/84 Pulse Oximetry 98 Oxygen Delivery Fraction of Inspired Oxygen 06/30/24 08:30 06/30/24 08:30 06/30/24 08:38 Temperature Pulse Rate 90 95 Respiratory Rate 20 20 Blood Pressure Pulse Oximetry 96 Oxygen Delivery Room Air Fraction of Inspired Oxygen 21 06/30/24 08:58 Temperature Pulse Rate 82 Respiratory Rate Blood Pressure Pulse Oximetry Oxygen Delivery Fraction of Inspired Oxygen Intake/Output Intake/Output: Intake & Output 06/27/24 06/28/24 06/29/24 06/30/24 23:59 23:59 23:59 23:59 Intake Total 230.5 1752.8 408.0 Output Total 1350 700 Balance 230.5 402.8 -292.0 Meds/Results Medications: Active Medications Generic Name Dose Route Start Last Admin Trade Name Freq PRN Reason Stop Dose Admin Acetaminophen 650 mg 06/28/24 20:17 Acetaminophen 325 Mg Tablet PO Q4H PRN Mild Pain (1-3) or Fever Amiodarone HCl 200 mg 06/30/24 17:00 Amiodarone Hcl 200 Mg Tablet PO BID LIZA Apixaban 2.5 mg 06/29/24 09:00 06/30/24 08:57 Apixaban 2.5 Mg Tablet PO 2.5 mg Q12HR LIZA Administration Carbidopa/Levodopa 2 tablet 06/28/24 23:40 06/29/24 20:42 Carbidopa/Levodopa 25/100 Mg Cr Tablet PO 2 tablet QHS LIZA Administration Carbidopa/Levodopa 3 tablet 06/29/24 08:00 06/30/24 08:57 Carbidopa/Levodopa 25/100 Mg Tablet PO 3 tablet 0800,1200,1800 LIZA Administration Dextrose 12.5 gm 06/28/24 20:17 Dextrose 50% 25 Gm/50 Ml Syringe IV PUSH PRN PRN Hypoglycemia Protocol Furosemide 40 mg 06/28/24 21:00 06/30/24 08:58 Furosemide Inj 40 Mg/4 Ml Vial IV PUSH 40 mg Q12HR LIZA Administration Gabapentin 100 mg 06/29/24 09:00 06/30/24 08:57 Gabapentin 100 Mg Capsule PO 100 mg DAILY LIZA Administration Glucagon 1 mg 06/28/24 20:17 Glucagon For Inj 1 Mg Vial IM PRN PRN Hypoglycemia Protocol Glucose 15 gm 06/28/24 20:17 Glucose Oral Gel 15 Gm Of Glucse In 37.5 Gm Tube PO PRN PRN Hypoglycemia Protocol Dextrose 1,000 mls @ 100 mls/hr 06/28/24 20:17 Dextrose 5% 1,000 Ml IVPB PRN PRN Hypoglycemia Protocol Levalbuterol HCl 1.25 mg 06/29/24 12:30 06/30/24 08:30 Levalbuterol Neb 1.25 Mg/3 Ml INHALATION 1.25 mg Q4HRT LIZA Administration Metoprolol Tartrate 25 mg 06/29/24 09:00 06/30/24 08:58 Metoprolol Tartrate 25 Mg Tablet PO 25 mg Q12HR LIZA Administration Mirtazapine 15 mg 06/28/24 23:40 06/29/24 20:42 Mirtazapine 15 Mg Tablet PO 15 mg QHS LIZA Administration Ondansetron HCl 4 mg 06/28/24 20:17 Ondansetron Inj 4 Mg/2 Ml Vial IV PUSH Q4H PRN Nausea Oseltamivir Phosphate 30 mg 06/28/24 21:00 06/30/24 08:58 Oseltamivir Phosphate 30 Mg Capsule PO 07/03/24 20:59 30 mg Q12HR LIZA Administration Potassium Chloride 40 meq 06/29/24 10:50 06/30/24 08:58 Potassium Chloride 20 Meq Packet (For Liquid) PO 40 meq DAILY LIZA Administration Radiology Results: ITS Impressions Chest X-Ray 06/28/24 16:50 IMPRESSION: Mild pulmonary vascular congestion with a small right-sided pleural effusion. Venous Doppler Study 06/28/24 16:58 IMPRESSION: 1. No deep venous thrombosis in either lower limb. Upper Quadrant Ultrasound 06/30/24 09:00 IMPRESSION: Cholelithiasis, without ultrasound evidence of cholecystitis. Prominence of the right renal pelvis without jessica hydronephrosis. Labs Labs: Laboratory Results - last 24 hr 06/30/24 08:41 Absolute Retic 0.03 Percent Retic 0.72 Immature Retic Fraction 7.8 Retic Hgb Content 22.3 L Sodium 138 Potassium 3.1 L Chloride 96 L Carbon Dioxide 37 H Anion Gap 5 BUN 27 H Creatinine 0.75 Estim Creat Clear Calc 41 Estimated GFR > 60 Glucose 142 H Calcium 8.5 Magnesium 1.9 Iron 28 L TIBC 302 Total Bilirubin 2.3 H AST 17 ALT 10 Alkaline Phosphatase 85 Lactate Dehydrogenase 184 NT-Pro-B Natriuret Pep 8730 H Total Protein 6.0 L Albumin 3.3 L
[2024-06-30] MEDS: SPIRONOLACTONE 12.5 MG TABLET PO (11:05)
[2024-06-30] MEDS: AMIODARONE HCL 200 MG TABLET PO ×2 (11:05→18:03)
[2024-06-30] MEDS: CARBIDOPA/LEVODOPA 25/100 MG CR TABLET 2 TABLET PO (19:42)
[2024-06-30] MEDS: MIRTAZAPINE 15 MG TABLET PO (19:43)
[2024-07-01] VITALS (31 sets, daily range): BP systolic 118–141; BP diastolic 53–68; PULSE 63–108; RESP 14–20; TEMP 36.4–36.6; O2SAT 93–99; BMI 19.1
[2024-07-01] MEDS: LEVALBUTEROL NEB 1.25 MG/3 ML INHALATION ×6 (00:09→21:28)
--- NOTE | 2024-07-01 07:57 | ECG_ITS ---
Test Date: 2024-07-01 08:57:06 Measurements Intervals [place] Rate: 86 P: 99 [place]: 148 QRS: 13 QRSD: 94 T: 131 QT: 467 QTc: 561 Interpretive Statements SINUS RHYTHM WITH ATRIAL COUPLETS AND FREQUENT SUPRAVENTRICULAR PREMATURE COMPLEXES LEFT VENTRICULAR HYPERTROPHY AND ST-T CHANGE CANNOT R/O SEPTAL INFARCT, AGE INDETERMINATE ST-T WAVE ABNORMALITY IN ANTEROLAT/INF LEADS- CONSIDER ISCHMIA ABNORMAL ECG Compared to ECG 06/30/2024 10:30:43 ATRIAL PREMATURE COMPLEXES NOW PRESENT Electronically Signed On 07-01-2024 09:38:55 [employer] by Talha Amos D.O.
--- NOTE | 2024-07-01 07:58 | PM.PNCARD ---
Progress Note: A&P Assessment and Plan (1) PAF (paroxysmal atrial fibrillation): Code(s): I48.0 - Paroxysmal atrial fibrillation Status: Acute Assessment and Plan: In Sinus rhythm. [id number] 3. She is having intermittent atrial fib. Was on Amiodarone drip. On Metoprolol Tartate 25 mg BID. On Eliquis 2.5 mg BID. On Start Amiodarone 200 mg PO BID to maintain sinus rhythm. Check EKG. (2) Heart failure with preserved ejection fraction (HFpEF, >= 50%): Qualifiers: Heart failure chronicity: acute on chronic Qualified Code(s): I50.33 - Acute on chronic diastolic (congestive) heart failure Code(s): I50.30 - Unspecified diastolic (congestive) heart failure Status: Acute Assessment and Plan: Euvolemic now. 06/28/24 Echo: EF 50-55%, mild LVE, diastolic dysfunction with e' .07, RV mild dysfunction, severe LAE, mod KULDEEP, mild AI, mod-severe MR, mod TR, RVSP 68 mmHg, aortic root and ascending aorta mod dilated. Continue diuresis with Lasix 40 mg IV BID. Monitor electrolytes and renal function. Stop IV Lasix. Start Lasix 40 mg PO daily and start Spironolactone 12.5 mg daily. (3) Mitral valve regurgitation: Qualifiers: Cardiac valve disease etiology: nonrheumatic Qualified Code(s): I34.0 - Nonrheumatic mitral (valve) insufficiency Code(s): I34.0 - Nonrheumatic mitral (valve) insufficiency Status: Acute Assessment and Plan: Mod-severe. (4) Pulmonary hypertension: Code(s): I27.20 - Pulmonary hypertension, unspecified Status: Acute Assessment and Plan: Probably due to diastolic dysfunction and MR. Subjective Date/time seen: 07/01/24 07:58 Interval history: Denies chest pain or sob today. Exam Const: General: cooperative, healthy appearing and comfortable Orientation/consciousness: oriented to person, oriented to place and oriented to time Resp: Auscultation: crackles, no rhonchi and no wheezes Cardio: Rate: regular rate Rhythm: regular rhythm Heart sounds: no murmurs Neuro: General: oriented to person, oriented to place and oriented to time Extrem: Right lower extremity: edema Left lower extremity: edema Other: Trace edema of both legs Objective Data Vital Signs Vital Signs: Vital Signs - 24 hr 06/30/24 08:00 06/30/24 08:00 06/30/24 08:00 Temperature 98.1 F Pulse Rate 100 102 H Respiratory Rate 16 Blood Pressure 137/84 Pulse Oximetry 98 Oxygen Delivery Room Air Fraction of Inspired Oxygen 06/30/24 08:30 06/30/24 08:30 06/30/24 08:38 Temperature Pulse Rate 90 95 Respiratory Rate 20 20 Blood Pressure Pulse Oximetry 96 Oxygen Delivery Room Air Fraction of Inspired Oxygen 21 06/30/24 08:58 06/30/24 10:00 06/30/24 10:00 Temperature 97.6 F Pulse Rate 82 66 69 Respiratory Rate 24 H Blood Pressure 118/57 L Pulse Oximetry 97 Oxygen Delivery Fraction of Inspired Oxygen 06/30/24 11:05 06/30/24 12:00 06/30/24 12:00 Temperature 97.6 F Pulse Rate 61 66 Respiratory Rate 24 H Blood Pressure 118/57 L Pulse Oximetry 97 Oxygen Delivery Room Air Fraction of Inspired Oxygen 06/30/24 12:00 06/30/24 12:10 06/30/24 12:10 Temperature Pulse Rate 63 59 L Respiratory Rate 20 Blood Pressure Pulse Oximetry 95 Oxygen Delivery Room Air Fraction of Inspired Oxygen 21 06/30/24 12:18 06/30/24 14:00 06/30/24 15:54 Temperature Pulse Rate 57 L 60 Respiratory Rate 20 Blood Pressure Pulse Oximetry 97 Oxygen Delivery Room Air Fraction of Inspired Oxygen 21 06/30/24 15:54 06/30/24 16:00 06/30/24 16:00 Temperature Pulse Rate 62 70 Respiratory Rate 20 Blood Pressure Pulse Oximetry Oxygen Delivery Room Air Fraction of Inspired Oxygen 06/30/24 16:00 06/30/24 16:02 06/30/24 18:00 Temperature 98.1 F Pulse Rate 77 68 87 Respiratory Rate 24 H 20 Blood Pressure 121/60 Pulse Oximetry 95 Oxygen Delivery Fraction of Inspired Oxygen 06/30/24 18:03 06/30/24 19:43 06/30/24 20:00 Temperature 97.9 F Pulse Rate 69 77 68 Respiratory Rate 20 Blood Pressure 129/82 Pulse Oximetry 95 Oxygen Delivery Fraction of Inspired Oxygen 06/30/24 20:00 06/30/24 20:00 06/30/24 22:00 Temperature Pulse Rate 68 71 Respiratory Rate Blood Pressure Pulse Oximetry Oxygen Delivery Room Air Fraction of Inspired Oxygen 06/30/24 22:09 06/30/24 22:23 06/30/24 23:43 Temperature 97.4 F L Pulse Rate 77 77 63 Respiratory Rate 16 16 18 Blood Pressure 104/47 L Pulse Oximetry 92 Oxygen Delivery Fraction of Inspired Oxygen 07/01/24 00:00 07/01/24 00:00 07/01/24 00:10 Temperature Pulse Rate 66 78 Respiratory Rate 16 Blood Pressure Pulse Oximetry Oxygen Delivery Room Air Fraction of Inspired Oxygen 07/01/24 00:22 07/01/24 02:00 07/01/24 03:15 Temperature Pulse Rate 78 86 75 Respiratory Rate 16 16 Blood Pressure Pulse Oximetry Oxygen Delivery Fraction of Inspired Oxygen 07/01/24 03:25 07/01/24 04:00 07/01/24 04:00 Temperature 97.6 F Pulse Rate 75 92 103 H Respiratory Rate 16 16 Blood Pressure 129/61 Pulse Oximetry 94 Oxygen Delivery Fraction of Inspired Oxygen 07/01/24 04:00 07/01/24 06:00 Temperature Pulse Rate 86 Respiratory Rate Blood Pressure Pulse Oximetry Oxygen Delivery Room Air Fraction of Inspired Oxygen Intake/Output Intake/Output: Intake & Output 06/28/24 06/29/24 06/30/24 07/01/24 23:59 23:59 23:59 23:59 Intake Total 230.5 1752.8 1548.0 300 Output Total 1350 1300 1300 Balance 230.5 402.8 248.0 -1000 Meds/Results Medications: Active Medications Generic Name Dose Route Start Last Admin Trade Name Freq PRN Reason Stop Dose Admin Acetaminophen 650 mg 06/28/24 20:17 Acetaminophen 325 Mg Tablet PO Q4H PRN Mild Pain (1-3) or Fever Amiodarone HCl 200 mg 06/30/24 10:50 06/30/24 18:03 Amiodarone Hcl 200 Mg Tablet PO 200 mg BID LIZA Administration Apixaban 2.5 mg 06/29/24 09:00 06/30/24 19:42 Apixaban 2.5 Mg Tablet PO 2.5 mg Q12HR LIZA Administration Carbidopa/Levodopa 2 tablet 06/28/24 23:40 06/30/24 19:42 Carbidopa/Levodopa 25/100 Mg Cr Tablet PO 2 tablet QHS LIZA Administration Carbidopa/Levodopa 3 tablet 06/29/24 08:00 06/30/24 18:03 Carbidopa/Levodopa 25/100 Mg Tablet PO 3 tablet 0800,1200,1800 LIZA Administration Dextrose 12.5 gm 06/28/24 20:17 Dextrose 50% 25 Gm/50 Ml Syringe IV PUSH PRN PRN Hypoglycemia Protocol Furosemide 40 mg 07/01/24 09:00 Furosemide 40 Mg Tablet PO DAILY LIZA Gabapentin 100 mg 06/29/24 09:00 06/30/24 08:57 Gabapentin 100 Mg Capsule PO 100 mg DAILY LIZA Administration Glucagon 1 mg 06/28/24 20:17 Glucagon For Inj 1 Mg Vial IM PRN PRN Hypoglycemia Protocol Glucose 15 gm 06/28/24 20:17 Glucose Oral Gel 15 Gm Of Glucse In 37.5 Gm Tube PO PRN PRN Hypoglycemia Protocol Dextrose 1,000 mls @ 100 mls/hr 06/28/24 20:17 Dextrose 5% 1,000 Ml IVPB PRN PRN Hypoglycemia Protocol Levalbuterol HCl 1.25 mg 06/29/24 12:30 07/01/24 07:01 Levalbuterol Neb 1.25 Mg/3 Ml INHALATION 1.25 mg Q4HRT LIZA Administration Metoprolol Tartrate 25 mg 06/29/24 09:00 06/30/24 19:43 Metoprolol Tartrate 25 Mg Tablet PO 25 mg Q12HR LIZA Administration Mirtazapine 15 mg 06/28/24 23:40 06/30/24 19:43 Mirtazapine 15 Mg Tablet PO 15 mg QHS LIZA Administration Ondansetron HCl 4 mg 06/28/24 20:17 Ondansetron Inj 4 Mg/2 Ml Vial IV PUSH Q4H PRN Nausea Oseltamivir Phosphate 30 mg 06/28/24 21:00 06/30/24 19:42 Oseltamivir Phosphate 30 Mg Capsule PO 07/03/24 20:59 30 mg Q12HR LIZA Administration Potassium Chloride 40 meq 06/29/24 10:50 06/30/24 08:58 Potassium Chloride 20 Meq Packet (For Liquid) PO 40 meq DAILY LIZA Administration Spironolactone 12.5 mg 06/30/24 09:25 06/30/24 11:05 Spironolactone 12.5 Mg Tablet PO 12.5 mg QAM LIZA Administration Radiology Results: ITS Impressions Chest X-Ray 06/28/24 16:50 IMPRESSION: Mild pulmonary vascular congestion with a small right-sided pleural effusion. Venous Doppler Study 06/28/24 16:58 IMPRESSION: 1. No deep venous thrombosis in either lower limb. Upper Quadrant Ultrasound 06/30/24 09:00 IMPRESSION: Cholelithiasis, without ultrasound evidence of cholecystitis. Prominence of the right renal pelvis without jessica hydronephrosis. Labs Labs: Laboratory Results - last 24 hr 06/30/24 08:41 Absolute Retic 0.03 Percent Retic 0.72 Immature Retic Fraction 7.8 Retic Hgb Content 22.3 L Sodium 138 Potassium 3.1 L Chloride 96 L Carbon Dioxide 37 H Anion Gap 5 BUN 27 H Creatinine 0.75 Estim Creat Clear Calc 41 Estimated GFR > 60 Glucose 142 H Calcium 8.5 Magnesium 1.9 Iron 28 L TIBC 302 % Saturation 9 L Ferritin 178.00 Total Bilirubin 2.3 H AST 17 ALT 10 Alkaline Phosphatase 85 Lactate Dehydrogenase 184 NT-Pro-B Natriuret Pep 8730 H Total Protein 6.0 L Albumin 3.3 L
[2024-07-01 08:50] LABS: Blood Urea Nitrogen 19 mg/dL (7-17); Calcium 8.7 mg/dL (8.4-10.2); Carbon Dioxide > 40 mmol/L (22-30); Chloride 91 mmol/L (98-107); Estimated CRCL calculation 43 ml/min; Estimated Glomerular Filt Rate > 60; Glucose 104 mg/dL (65-110); Magnesium 1.8 mg/dL (1.6-2.3); Potassium 3.1 mmol/L (3.4-5.0); Sodium 140 mmol/L (137-145)
[2024-07-01] MEDS: OSELTAMIVIR PHOSPHATE 30 MG CAPSULE PO ×2 (08:59→21:09)
[2024-07-01] MEDS: APIXABAN 2.5 MG TABLET PO ×2 (08:59→21:09)
[2024-07-01] MEDS: GABAPENTIN 100 MG CAPSULE PO (08:59)
[2024-07-01] MEDS: POTASSIUM CHLORIDE 20 MEQ PACKET (FOR LIQUID) 40 MEQ PO (08:59)
[2024-07-01] MEDS: METOPROLOL TARTRATE 25 MG TABLET PO ×2 (09:00→21:09)
[2024-07-01] MEDS: CARBIDOPA/LEVODOPA 25/100 MG TABLET 3 TABLET PO ×3 (09:00→17:16)
[2024-07-01] MEDS: AMIODARONE HCL 200 MG TABLET PO ×2 (09:01→17:16)
[2024-07-01] MEDS: SPIRONOLACTONE 12.5 MG TABLET PO (09:01)
[2024-07-01] MEDS: FUROSEMIDE 40 MG TABLET PO (09:01)
--- NOTE | 2024-07-01 10:10 | P.PNIM_ITS ---
Progress Note: A&P Assessment and Plan (1) Severe pulmonary hypertension: Code(s): I27.20 - Pulmonary hypertension, unspecified Status: Acute (2) Right-sided heart failure: Qualifiers: Heart failure chronicity: acute on chronic Qualified Code(s): I50.813 - Acute on chronic right heart failure Code(s): I50.810 - Right heart failure, unspecified Status: Acute (3) Heart failure with preserved ejection fraction (HFpEF, >= 50%): Qualifiers: Heart failure chronicity: acute on chronic Qualified Code(s): I50.33 - Acute on chronic diastolic (congestive) heart failure Code(s): I50.30 - Unspecified diastolic (congestive) heart failure Status: Acute (4) Atrial fibrillation with rapid ventricular response: Code(s): I48.91 - Unspecified atrial fibrillation Status: Acute (5) Paroxysmal atrial fibrillation with RVR: Code(s): I48.0 - Paroxysmal atrial fibrillation Status: Acute (6) Mitral valve regurgitation: Qualifiers: Cardiac valve disease etiology: nonrheumatic Qualified Code(s): I34.0 - Nonrheumatic mitral (valve) insufficiency Code(s): I34.0 - Nonrheumatic mitral (valve) insufficiency Status: Acute (7) Hyperbilirubinemia: Code(s): E80.6 - Other disorders of bilirubin metabolism Status: Acute (8) Influenza A: Code(s): J10.1 - Influenza due to other identified influenza virus with other respiratory manifestations Status: Acute Plan acute exacerbation of combined heart failure 06/28/24 Echo: EF 50-55%, mild LVE, diastolic dysfunction RV mild dysfunction, severe LaE, mod KULDEEP, mild AI, mod-severe MR, mod TR, RVSP 68 mmHg, aortic root and ascending aorta mod dilated. BNP [id number] upon arrival Likely resulting from fluid overload and uncontrolled heart rate Patient still fluid overloaded Patient continues to improve. Continue Lasix 40 mg b.i.d. IV push f/u cxr AFib RVR Patient received digoxin and oral metoprolol in the ER per cardiology recommendations. Rate was not controlled, patient was started on amiodarone drip. Consult treating plant pumper, further management per treating plant pumper hyperbilirubinemia increased over recent months. likely due to passive congestive of the liver. CMP and indirect bilirubin. right upper quadrant ultrasound Cholelithiasis, without ultrasound evidence of cholecystitis. Hypokalemia Replete with potassium chloride 40 mg daily p.o. Patient positive for influenza a. Tamiflu 30 mg p.o. b.i.d. Acute enteritis Patient is having diarrhea most likely due to influenza a/viral illness. C diff and stool cultures pending. Chronic anemia Close baseline Given elevated indirect bilirubin, ordered LDH, haptoglobin, reticulocyte, iron panel, and stool guaiac Goals of care discussion was had with the patient's daughter/POA. remain full code at this time Subjective Date/time seen: 07/01/24 10:10 Interval history: Patient on room air, patient feels better today, still has shortness breath with mild exertion. Denies abdomen pain chest pain palpitation. Exam Narrative: GENERAL: Pleasant, in no acute distress. Well-nourished. - EYES: EOMI. Anicteric. - HENT: Moist mucous membranes. - LUNGS: Coarse breath sound bilaterall y no wheezing, rhonchi, or rales. - CARDIOVASCULAR: Irregular and irregul ar rhythm No murmur. No JVD. - ABDOMEN: Soft, non-tender and non-dist ended. No palpable masses. - EXTREMITIES: No edema. Peripheral puls es 2+. Non-tender. - NEUROLOGIC: No focal neurological defi cits. CN II-XII grossly intact. - PSYCHIATRIC: Awake, Alert and oriented x 3. Appropriate mood and affect. - SKIN: No rashes or lesions. Warm. - LYMPH: No cervical lymphadenopathy. Objective Data Vital Signs Vital Signs: Vital Signs - 24 hr 06/30/24 11:05 06/30/24 12:00 06/30/24 12:00 Temperature 97.6 F Pulse Rate 61 66 Respiratory Rate 24 H Blood Pressure 118/57 L Pulse Oximetry 97 Oxygen Delivery Room Air Fraction of Inspired Oxygen 06/30/24 12:00 06/30/24 12:10 06/30/24 12:10 Temperature Pulse Rate 63 59 L Respiratory Rate 20 Blood Pressure Pulse Oximetry 95 Oxygen Delivery Room Air Fraction of Inspired Oxygen 06/30/24 12:18 06/30/24 14:00 06/30/24 15:54 Temperature Pulse Rate 57 L 60 Respiratory Rate 20 Blood Pressure Pulse Oximetry 97 Oxygen Delivery Room Air Fraction of Inspired Oxygen 06/30/24 15:54 02/16/25 16:00 06/30/24 16:00 Temperature Pulse Rate 62 70 Respiratory Rate 20 Blood Pressure Pulse Oximetry Oxygen Delivery Room Air Fraction of Inspired Oxygen 06/30/24 16:00 06/30/24 16:02 06/30/24 18:00 Temperature 98.1 F Pulse Rate 77 68 87 Respiratory Rate 24 H 20 Blood Pressure 121/60 Pulse Oximetry 95 Oxygen Delivery Fraction of Inspired Oxygen 06/30/24 18:03 06/30/24 19:43 06/30/24 20:00 Temperature 97.9 F Pulse Rate 69 77 68 Respiratory Rate 20 Blood Pressure 129/82 Pulse Oximetry 95 Oxygen Delivery Fraction of Inspired Oxygen 06/30/24 20:00 06/30/24 20:00 06/30/24 22:00 Temperature Pulse Rate 68 71 Respiratory Rate Blood Pressure Pulse Oximetry Oxygen Delivery Room Air Fraction of Inspired Oxygen 06/30/24 22:09 06/30/24 22:23 06/30/24 23:43 Temperature 97.4 F L Pulse Rate 77 77 63 Respiratory Rate 16 16 18 Blood Pressure 104/47 L Pulse Oximetry 92 Oxygen Delivery Fraction of Inspired Oxygen 07/01/24 00:00 07/01/24 00:00 07/01/24 00:10 Temperature Pulse Rate 66 78 Respiratory Rate 16 Blood Pressure Pulse Oximetry Oxygen Delivery Room Air Fraction of Inspired Oxygen 07/01/24 00:22 07/01/24 02:00 07/01/24 03:15 Temperature Pulse Rate 78 86 75 Respiratory Rate 16 16 Blood Pressure Pulse Oximetry Oxygen Delivery Fraction of Inspired Oxygen 07/01/24 03:25 07/01/24 04:00 07/01/24 04:00 Temperature 97.6 F Pulse Rate 75 92 103 H Respiratory Rate 16 16 Blood Pressure 129/61 Pulse Oximetry 94 Oxygen Delivery Fraction of Inspired Oxygen 07/01/24 04:00 07/01/24 06:00 07/01/24 07:00 Temperature Pulse Rate 86 96 Respiratory Rate 18 Blood Pressure Pulse Oximetry 93 Oxygen Delivery Room Air Room Air Fraction of Inspired Oxygen 07/01/24 07:00 07/01/24 07:10 07/01/24 08:05 Temperature 97.8 F Pulse Rate 96 90 102 H Respiratory Rate 18 18 14 Blood Pressure 141/68 H Pulse Oximetry 96 Oxygen Delivery Fraction of Inspired Oxygen 07/01/24 09:00 07/01/24 09:01 Temperature Pulse Rate 97 97 Respiratory Rate Blood Pressure Pulse Oximetry Oxygen Delivery Fraction of Inspired Oxygen Intake/Output Intake/Output: Intake & Output 06/28/24 06/29/24 06/30/24 07/01/24 23:59 23:59 23:59 23:59 Intake Total 230.5 1752.8 1548.0 540 Output Total 1350 1300 1300 Balance 230.5 402.8 248.0 -760 Meds/Results Medications: Active Medications Generic Name Dose Route Start Last Admin Trade Name Freq PRN Reason Stop Dose Admin Acetaminophen 650 mg 06/28/24 20:17 Acetaminophen 325 Mg Tablet PO Q4H PRN Mild Pain (1-3) or Fever Amiodarone HCl 200 mg 06/30/24 10:50 07/01/24 09:01 Amiodarone Hcl 200 Mg Tablet PO 200 mg BID LIZA Administration Apixaban 2.5 mg 06/29/24 09:00 07/01/24 08:59 Apixaban 2.5 Mg Tablet PO 2.5 mg Q12HR LIZA Administration Carbidopa/Levodopa 2 tablet 06/28/24 23:40 06/30/24 19:42 Carbidopa/Levodopa 25/100 Mg Cr Tablet PO 2 tablet QHS LIZA Administration Carbidopa/Levodopa 3 tablet 06/29/24 08:00 07/01/24 09:00 Carbidopa/Levodopa 25/100 Mg Tablet PO 3 tablet 0800,1200,1800 LIZA Administration Dextrose 12.5 gm 06/28/24 20:17 Dextrose 50% 25 Gm/50 Ml Syringe IV PUSH PRN PRN Hypoglycemia Protocol Furosemide 40 mg 07/01/24 09:00 07/01/24 09:01 Furosemide 40 Mg Tablet PO 40 mg DAILY LIZA Administration Gabapentin 100 mg 06/29/24 09:00 07/01/24 08:59 Gabapentin 100 Mg Capsule PO 100 mg DAILY LIZA Administration Glucagon 1 mg 06/28/24 20:17 Glucagon For Inj 1 Mg Vial IM PRN PRN Hypoglycemia Protocol Glucose 15 gm 06/28/24 20:17 Glucose Oral Gel 15 Gm Of Glucse In 37.5 Gm Tube PO PRN PRN Hypoglycemia Protocol Dextrose 1,000 mls @ 100 mls/hr 06/28/24 20:17 Dextrose 5% 1,000 Ml IVPB PRN PRN Hypoglycemia Protocol Levalbuterol HCl 1.25 mg 06/29/24 12:30 07/01/24 07:01 Levalbuterol Neb 1.25 Mg/3 Ml INHALATION 1.25 mg Q4HRT LIZA Administration Metoprolol Tartrate 25 mg 06/29/24 09:00 07/01/24 09:00 Metoprolol Tartrate 25 Mg Tablet PO 25 mg Q12HR LIZA Administration Mirtazapine 15 mg 06/28/24 23:40 06/30/24 19:43 Mirtazapine 15 Mg Tablet PO 15 mg QHS LIZA Administration Ondansetron HCl 4 mg 06/28/24 20:17 Ondansetron Inj 4 Mg/2 Ml Vial IV PUSH Q4H PRN Nausea Oseltamivir Phosphate 30 mg 06/28/24 21:00 07/01/24 08:59 Oseltamivir Phosphate 30 Mg Capsule PO 07/03/24 20:59 30 mg Q12HR LIZA Administration Potassium Chloride 40 meq 06/29/24 10:50 07/01/24 08:59 Potassium Chloride 20 Meq Packet (For Liquid) PO 40 meq DAILY LIZA Administration Spironolactone 12.5 mg 06/30/24 09:25 07/01/24 09:01 Spironolactone 12.5 Mg Tablet PO 12.5 mg QAM LIZA Administration Radiology Results: ITS Impressions Chest X-Ray 06/28/24 16:50 IMPRESSION: Mild pulmonary vascular congestion with a small right-sided pleural effusion. Venous Doppler Study 06/28/24 16:58 IMPRESSION: 1. No deep venous thrombosis in either lower limb. Upper Quadrant Ultrasound 06/30/24 09:00 IMPRESSION: Cholelithiasis, without ultrasound evidence of cholecystitis. Prominence of the right renal pelvis without jessica hydronephrosis. Labs Labs: Laboratory Results - last 24 hr 07/01/24 08:24 Sodium 140 Potassium 3.1 L Chloride 91 L Carbon Dioxide > 40 H Anion Gap BUN 19 H Creatinine 0.65 L Estim Creat Clear Calc 43 Estimated GFR > 60 Glucose 104 Calcium 8.7 Magnesium 1.8
[2024-07-01 20:08] LABS: Haptoglobin 73 mg/dL (43-212)
[2024-07-01] MEDS: CARBIDOPA/LEVODOPA 25/100 MG CR TABLET 2 TABLET PO (21:09)
[2024-07-01] MEDS: MIRTAZAPINE 15 MG TABLET PO (21:09)
[2024-07-02] VITALS (16 sets, daily range): BP systolic 115–144; BP diastolic 59–68; PULSE 64–83; RESP 16–20; TEMP 36.2–36.7; O2SAT 94–98
[2024-07-02] MEDS: LEVALBUTEROL NEB 1.25 MG/3 ML INHALATION ×3 (00:10→11:11)
--- NOTE | 2024-07-02 05:25 | PCRCNOTE ---
Window of time for administration has passed. See next scheduled administration.
[2024-07-02 05:31] LABS: Anion Gap 7 mmol/L (4-12); Blood Urea Nitrogen 27 mg/dL (7-17); Calcium 8.6 mg/dL (8.4-10.2); Carbon Dioxide 38 mmol/L (22-30); Chloride 92 mmol/L (98-107); Estimated CRCL calculation 42 ml/min; Estimated Glomerular Filt Rate > 60; Glucose 99 mg/dL (65-110); Potassium 3.5 mmol/L (3.4-5.0); Sodium 137 mmol/L (137-145)
--- NOTE | 2024-07-02 06:36 | ECG_ITS ---
Test Date: 2024-07-02 08:59:08 Measurements Intervals [place] Rate: 73 P: 187 DE: 158 QRS: 71 QRSD: 85 T: 259 QT: 367 QTc: 405 Interpretive Statements SINUS RHYTHM WITH ATRIAL COUPLETS LEFT VENTRICULAR HYPERTROPHY AND ST-T CHANGE CANNOT R/O SEPTAL INFARCT, AGE INDETERMINATE ST-T WAVE ABNORMALITY IN INFERIOR LEADS- CONSIDER ISCHEMIA BASELINE ARTIFACT- I, AVR, AVL, V1 ABNORMAL ECG Compared to ECG 07/01/2024 08:57:06 NO SIGNIFICANT CHANGE Electronically Signed On 07-02-2024 09:59:42 GEOGRAPHIC INFORMATION SYSTEMS MANAGER by Talha Amos D.O.
--- NOTE | 2024-07-02 07:54 | P.PNCA_ITS ---
Progress Note: A&P Assessment and Plan (1) PAF (paroxysmal atrial fibrillation): Code(s): I48.0 - Paroxysmal atrial fibrillation Status: Acute Assessment and Plan: In Sinus rhythm. [id number] 3. She is having intermittent atrial fib. Was on Amiodarone drip. On Metoprolol Tartate 25 mg BID. On Eliquis 2.5 mg BID. On Amiodarone 200 mg PO BID to maintain sinus rhythm. (2) Heart failure with preserved ejection fraction (HFpEF, >= 50%): Qualifiers: Heart failure chronicity: acute on chronic Qualified Code(s): I50.33 - Acute on chronic diastolic (congestive) heart failure Code(s): I50.30 - Unspecified diastolic (congestive) heart failure Status: Acute Assessment and Plan: Euvolemic now. 06/28/24 Echo: EF 50-55%, mild LVE, diastolic dysfunction with e' .07, RV mild dysfunction, severe LAE, mod KULDEEP, mild AI, mod-severe MR, mod TR, RVSP 68 mmHg, aortic root and ascending aorta mod dilated. Continue diuresis with Lasix 40 mg IV BID. Monitor electrolytes and renal function. On Lasix 40 mg PO daily and on Spironolactone 25 mg daily. May d/c home from cardiology standpoint and f/u with me in 1-2 weeks. (3) Mitral valve regurgitation: Qualifiers: Cardiac valve disease etiology: nonrheumatic Qualified Code(s): I34.0 - Nonrheumatic mitral (valve) insufficiency Code(s): I34.0 - Nonrheumatic mitral (valve) insufficiency Status: Acute Assessment and Plan: Mod-severe. (4) Pulmonary hypertension: Code(s): I27.20 - Pulmonary hypertension, unspecified Status: Acute Assessment and Plan: Probably due to diastolic dysfunction and MR. Subjective Date/time seen: 07/02/24 07:54 Interval history: Denies chest pain or sob today. She feels great today. Exam Const: General: cooperative, healthy appearing and comfortable Orientation/consciousness: oriented to person, oriented to place and oriented to time Resp: Auscultation: clear to auscultation bilaterally, no crackles, no rales, no rhonchi and no wheezes Cardio: Rate: regular rate Rhythm: regular rhythm Heart sounds: no murmurs Neuro: General: oriented to person, oriented to place and oriented to time Extrem: Right lower extremity: no edema Left lower extremity: no edema Objective Data Vital Signs Vital Signs: Vital Signs - 24 hr 07/01/24 08:00 07/01/24 08:00 07/01/24 08:05 Temperature 97.8 F Pulse Rate 108 H 102 H Respiratory Rate 14 Blood Pressure 141/68 H Pulse Oximetry 96 Oxygen Delivery Room Air 07/01/24 09:00 07/01/24 09:01 07/01/24 10:00 Temperature Pulse Rate 97 97 73 Respiratory Rate Blood Pressure Pulse Oximetry Oxygen Delivery 07/01/24 10:40 07/01/24 10:50 07/01/24 11:40 Temperature Pulse Rate 77 80 Respiratory Rate 16 18 Blood Pressure Pulse Oximetry Oxygen Delivery Room Air 07/01/24 11:40 07/01/24 12:00 07/01/24 12:00 Temperature 97.7 F Pulse Rate 64 77 Respiratory Rate 16 Blood Pressure 118/53 L Pulse Oximetry 99 Oxygen Delivery Room Air 07/01/24 14:00 07/01/24 14:48 07/01/24 14:55 Temperature Pulse Rate 66 76 Respiratory Rate 18 Blood Pressure Pulse Oximetry Oxygen Delivery Room Air 07/01/24 14:58 07/01/24 16:00 07/01/24 16:00 Temperature 97.5 F L Pulse Rate 77 63 Respiratory Rate 18 16 Blood Pressure 127/55 L Pulse Oximetry 95 Oxygen Delivery Room Air 07/01/24 16:00 07/01/24 17:16 07/01/24 18:00 Temperature Pulse Rate 104 H 81 75 Respiratory Rate Blood Pressure Pulse Oximetry Oxygen Delivery 07/01/24 20:00 07/01/24 20:00 07/01/24 20:00 Temperature 97.6 F Pulse Rate 68 69 Respiratory Rate 20 Blood Pressure 120/66 Pulse Oximetry 95 Oxygen Delivery Room Air 07/01/24 21:09 07/01/24 21:28 07/01/24 21:31 Temperature Pulse Rate 73 72 Respiratory Rate 18 Blood Pressure Pulse Oximetry 94 Oxygen Delivery Room Air 07/01/24 21:35 07/01/24 22:00 07/02/24 00:00 Temperature 97.2 F L Pulse Rate 74 66 66 Respiratory Rate 18 18 Blood Pressure 115/65 Pulse Oximetry 95 Oxygen Delivery 07/02/24 00:00 07/02/24 00:00 07/02/24 00:10 Temperature Pulse Rate 67 75 Respiratory Rate 18 Blood Pressure Pulse Oximetry Oxygen Delivery Room Air 07/02/24 00:17 07/02/24 02:00 07/02/24 04:00 Temperature 98.0 F Pulse Rate 73 66 64 Respiratory Rate 18 16 Blood Pressure 122/68 Pulse Oximetry 94 Oxygen Delivery 07/02/24 04:00 07/02/24 04:00 07/02/24 06:00 Temperature Pulse Rate 71 78 Respiratory Rate Blood Pressure Pulse Oximetry Oxygen Delivery Room Air Intake/Output Intake/Output: Intake & Output 06/29/24 06/30/24 07/01/24 07/02/24 23:59 23:59 23:59 23:59 Intake Total 1752.8 1548.0 1400 450 Output Total 1350 1300 1500 Balance 402.8 248.0 -100 450 Meds/Results Medications: Active Medications Generic Name Dose Route Start Last Admin Trade Name Freq PRN Reason Stop Dose Admin Acetaminophen 650 mg 06/28/24 20:17 Acetaminophen 325 Mg Tablet PO Q4H PRN Mild Pain (1-3) or Fever Amiodarone HCl 200 mg 06/30/24 10:50 07/01/24 17:16 Amiodarone Hcl 200 Mg Tablet PO 200 mg BID LIZA Administration Apixaban 2.5 mg 06/29/24 09:00 07/01/24 21:09 Apixaban 2.5 Mg Tablet PO 2.5 mg Q12HR LIZA Administration Carbidopa/Levodopa 2 tablet 06/28/24 23:40 07/01/24 21:09 Carbidopa/Levodopa 25/100 Mg Cr Tablet PO 2 tablet QHS LIZA Administration Carbidopa/Levodopa 3 tablet 06/29/24 08:00 07/01/24 17:16 Carbidopa/Levodopa 25/100 Mg Tablet PO 3 tablet 0800,1200,1800 LIZA Administration Dextrose 12.5 gm 06/28/24 20:17 Dextrose 50% 25 Gm/50 Ml Syringe IV PUSH PRN PRN Hypoglycemia Protocol Furosemide 40 mg 07/02/24 09:00 Furosemide 40 Mg Tablet PO BID LIZA Gabapentin 100 mg 06/29/24 09:00 07/01/24 08:59 Gabapentin 100 Mg Capsule PO 100 mg DAILY LIZA Administration Glucagon 1 mg 06/28/24 20:17 Glucagon For Inj 1 Mg Vial IM PRN PRN Hypoglycemia Protocol Glucose 15 gm 06/28/24 20:17 Glucose Oral Gel 15 Gm Of Glucse In 37.5 Gm Tube PO PRN PRN Hypoglycemia Protocol Dextrose 1,000 mls @ 100 mls/hr 06/28/24 20:17 Dextrose 5% 1,000 Ml IVPB PRN PRN Hypoglycemia Protocol Levalbuterol HCl 1.25 mg 06/29/24 12:30 07/02/24 05:24 Levalbuterol Neb 1.25 Mg/3 Ml INHALATION Not Given Q4HRT [facility] Metoprolol Tartrate 25 mg 06/29/24 09:00 07/01/24 21:09 Metoprolol Tartrate 25 Mg Tablet PO 25 mg Q12HR LIZA Administration Mirtazapine 15 mg 06/28/24 23:40 07/01/24 21:09 Mirtazapine 15 Mg Tablet PO 15 mg QHS LIZA Administration Ondansetron HCl 4 mg 06/28/24 20:17 Ondansetron Inj 4 Mg/2 Ml Vial IV PUSH Q4H PRN Nausea Oseltamivir Phosphate 30 mg 06/28/24 21:00 07/01/24 21:09 Oseltamivir Phosphate 30 Mg Capsule PO 07/03/24 20:59 30 mg Q12HR LIZA Administration Potassium Chloride 40 meq 06/29/24 10:50 07/01/24 08:59 Potassium Chloride 20 Meq Packet (For Liquid) PO 40 meq DAILY LIZA Administration Spironolactone 25 mg 07/02/24 09:00 Spironolactone 25 Mg Tablet PO QAM [facility] Radiology Results: ITS Impressions Venous Doppler Study 06/28/24 16:58 IMPRESSION: 1. No deep venous thrombosis in either lower limb. Upper Quadrant Ultrasound 06/30/24 09:00 IMPRESSION: Cholelithiasis, without ultrasound evidence of cholecystitis. Prominence of the right renal pelvis without jessica hydronephrosis. Chest X-Ray 07/01/24 10:57 IMPRESSION: 1. All pulmonary vascular injection of mild pulmonary edema in the lower lung zones. 2. Small bilateral pleural effusions with mild bibasilar atelectasis versus less likely pneumonia. 3. Cardiomegaly with enlargement of the central pulmonary arteries consistent with pulmonary arterial hypertension. Labs Labs: Laboratory Results - last 24 hr 06/30/24 07/01/24 07/02/24 08:41 08:24 04:56 Haptoglobin 73 Sodium 140 137 Potassium 3.1 L 3.5 Chloride 91 L 92 L Carbon Dioxide > 40 H 38 H Anion Gap 7 BUN 19 H 27 H Creatinine 0.65 L 0.65 L Estim Creat Clear Calc 43 42 Estimated GFR > 60 > 60 Glucose 104 99 Calcium 8.7 8.6 Magnesium 1.8 2.0
--- NOTE | 2024-07-02 08:49 | P.PNIM_ITS ---
Progress Note: A&P Assessment and Plan (1) Severe pulmonary hypertension: Code(s): I27.20 - Pulmonary hypertension, unspecified Status: Acute (2) Right-sided heart failure: Qualifiers: Heart failure chronicity: acute on chronic Qualified Code(s): I50.813 - Acute on chronic right heart failure Code(s): I50.810 - Right heart failure, unspecified Status: Acute (3) Heart failure with preserved ejection fraction (HFpEF, >= 50%): Qualifiers: Heart failure chronicity: acute on chronic Qualified Code(s): I50.33 - Acute on chronic diastolic (congestive) heart failure Code(s): I50.30 - Unspecified diastolic (congestive) heart failure Status: Acute (4) Atrial fibrillation with rapid ventricular response: Code(s): I48.91 - Unspecified atrial fibrillation Status: Acute (5) Paroxysmal atrial fibrillation with RVR: Code(s): I48.0 - Paroxysmal atrial fibrillation Status: Acute (6) Mitral valve regurgitation: Qualifiers: Cardiac valve disease etiology: nonrheumatic Qualified Code(s): I34.0 - Nonrheumatic mitral (valve) insufficiency Code(s): I34.0 - Nonrheumatic mitral (valve) insufficiency Status: Acute (7) Hyperbilirubinemia: Code(s): E80.6 - Other disorders of bilirubin metabolism Status: Acute (8) Influenza A: Code(s): J10.1 - Influenza due to other identified influenza virus with other respiratory manifestations Status: Acute Plan acute exacerbation of combined heart failure 06/28/24 Echo: EF 50-55%, mild LVE, diastolic dysfunction RV mild dysfunction, severe LaE, mod KULDEEP, mild AI, mod-severe MR, mod TR, RVSP 68 mmHg, aortic root and ascending aorta mod dilated. BNP 12394 upon arrival Likely resulting from fluid overload and uncontrolled heart rate Patient still fluid overloaded Patient continues to improve. Continue Lasix 40 mg b.i.d. IV push Changed furosemide 40 mg daily p.o. per endoscopic technician, euvolemia 07/02 AFib RVR Patient received digoxin and oral metoprolol in the ER per cardiology recommendations. Rate was not controlled, patient was started on amiodarone drip. Consult endoscopic technician, further management per endoscopic technician Changed to amiodarone 200 mg b.i.d. p.o. per endoscopic technician Now patient has sinus rhythm hyperbilirubinemia increased over recent months. likely due to passive congestive of the liver. CMP and indirect bilirubin. right upper quadrant ultrasound Cholelithiasis, without ultrasound evidence of cholecystitis. Hypokalemia Replete with potassium chloride 40 mg daily p.o. Corrected, potassium 3.5 today Patient positive for influenza a. Tamiflu 30 mg p.o. b.i.d. continue Tamiflu for 5 days Acute enteritis Patient is having diarrhea most likely due to influenza a/viral illness. Diarrhea resolved Chronic anemia Close baseline Given elevated indirect bilirubin, haptoglobin normal, reticulocyte within normal limit, iron panel on the lower side, ferritin 178, Goals of care discussion was had with the patient's daughter/POA. remain full code at this time Cardiologists clear patient to be discharged today. Patient will be discharged to assisted living with home health Subjective Date/time seen: 07/02/24 08:49 Interval history: I saw examined patient today, patient feels good, patient is able to ambulate, patient does not have obvious distress. Exercise tolerance increase. Patient denies chest pain cough, abdomen pain nausea vomiting. Patient afebrile blood pressure stable Exam Narrative: GENERAL: Pleasant, in no acute distress. Well-nourished. - EYES: EOMI. Anicteric. - HENT: Moist mucous membranes. - LUNGS: Clear to auscultation bilateral ly, no wheezing, rhonchi, or rales. - CARDIOVASCULAR: Regular rate and rhyth m. No murmur. No JVD. - ABDOMEN: Soft, non-tender and non-dist ended. No palpable masses. - EXTREMITIES: No edema. Peripheral puls es 2+. Non-tender. - NEUROLOGIC: No focal neurological defi cits. CN II-XII grossly intact. - PSYCHIATRIC: Awake, Alert and oriented x 3. Appropriate mood and affect. - SKIN: No rashes or lesions. Warm. - LYMPH: No cervical lymphadenopathy. Objective Data Vital Signs Vital Signs: Vital Signs - 24 hr 07/01/24 09:00 07/01/24 09:01 07/01/24 10:00 Temperature Pulse Rate 97 97 73 Respiratory Rate Blood Pressure Pulse Oximetry Oxygen Delivery 07/01/24 10:40 07/01/24 10:50 07/01/24 11:40 Temperature Pulse Rate 77 80 Respiratory Rate 16 18 Blood Pressure Pulse Oximetry Oxygen Delivery Room Air 07/01/24 11:40 07/01/24 12:00 07/01/24 12:00 Temperature 97.7 F Pulse Rate 64 77 Respiratory Rate 16 Blood Pressure 118/53 L Pulse Oximetry 99 Oxygen Delivery Room Air 07/01/24 14:00 07/01/24 14:48 07/01/24 14:55 Temperature Pulse Rate 66 76 Respiratory Rate 18 Blood Pressure Pulse Oximetry Oxygen Delivery Room Air 07/01/24 14:58 07/01/24 16:00 07/01/24 16:00 Temperature 97.5 F L Pulse Rate 77 63 Respiratory Rate 18 16 Blood Pressure 127/55 L Pulse Oximetry 95 Oxygen Delivery Room Air 07/01/24 16:00 07/01/24 17:16 07/01/24 18:00 Temperature Pulse Rate 104 H 81 75 Respiratory Rate Blood Pressure Pulse Oximetry Oxygen Delivery 07/01/24 20:00 07/01/24 20:00 07/01/24 20:00 Temperature 97.6 F Pulse Rate 68 69 Respiratory Rate 20 Blood Pressure 120/66 Pulse Oximetry 95 Oxygen Delivery Room Air 07/01/24 21:09 07/01/24 21:28 07/01/24 21:31 Temperature Pulse Rate 73 72 Respiratory Rate 18 Blood Pressure Pulse Oximetry 94 Oxygen Delivery Room Air 07/01/24 21:35 07/01/24 22:00 07/02/24 00:00 Temperature 97.2 F L Pulse Rate 74 66 66 Respiratory Rate 18 18 Blood Pressure 115/65 Pulse Oximetry 95 Oxygen Delivery 07/02/24 00:00 07/02/24 00:00 07/02/24 00:10 Temperature Pulse Rate 67 75 Respiratory Rate 18 Blood Pressure Pulse Oximetry Oxygen Delivery Room Air 07/02/24 00:17 07/02/24 02:00 07/02/24 04:00 Temperature 98.0 F Pulse Rate 73 66 64 Respiratory Rate 18 16 Blood Pressure 122/68 Pulse Oximetry 94 Oxygen Delivery 07/02/24 04:00 07/02/24 04:00 07/02/24 06:00 Temperature Pulse Rate 71 78 Respiratory Rate Blood Pressure Pulse Oximetry Oxygen Delivery Room Air 07/02/24 07:30 Temperature 97.8 F Pulse Rate 83 Respiratory Rate 16 Blood Pressure 144/59 H Pulse Oximetry 98 Oxygen Delivery Intake/Output Intake/Output: Intake & Output 06/29/24 06/30/24 07/01/24 07/02/24 23:59 23:59 23:59 23:59 Intake Total 1752.8 1548.0 1400 450 Output Total 1350 1300 1500 Balance 402.8 248.0 -100 450 Meds/Results Medications: Active Medications Generic Name Dose Route Start Last Admin Trade Name Freq PRN Reason Stop Dose Admin Acetaminophen 650 mg 06/28/24 20:17 Acetaminophen 325 Mg Tablet PO Q4H PRN Mild Pain (1-3) or Fever Amiodarone HCl 200 mg 06/30/24 10:50 07/01/24 17:16 Amiodarone Hcl 200 Mg Tablet PO 200 mg BID LIZA Administration Apixaban 2.5 mg 06/29/24 09:00 07/01/24 21:09 Apixaban 2.5 Mg Tablet PO 2.5 mg Q12HR LIZA Administration Carbidopa/Levodopa 2 tablet 06/28/24 23:40 07/01/24 21:09 Carbidopa/Levodopa 25/100 Mg Cr Tablet PO 2 tablet QHS LIZA Administration Carbidopa/Levodopa 3 tablet 06/29/24 08:00 07/01/24 17:16 Carbidopa/Levodopa 25/100 Mg Tablet PO 3 tablet 0800,1200,1800 LIZA Administration Dextrose 12.5 gm 06/28/24 20:17 Dextrose 50% 25 Gm/50 Ml Syringe IV PUSH PRN PRN Hypoglycemia Protocol Furosemide 40 mg 07/02/24 09:00 Furosemide 40 Mg Tablet PO DAILY LIZA Gabapentin 100 mg 06/29/24 09:00 07/01/24 08:59 Gabapentin 100 Mg Capsule PO 100 mg DAILY LIZA Administration Glucagon 1 mg 06/28/24 20:17 Glucagon For Inj 1 Mg Vial IM PRN PRN Hypoglycemia Protocol Glucose 15 gm 06/28/24 20:17 Glucose Oral Gel 15 Gm Of Glucse In 37.5 Gm Tube PO PRN PRN Hypoglycemia Protocol Dextrose 1,000 mls @ 100 mls/hr 06/28/24 20:17 Dextrose 5% 1,000 Ml IVPB PRN PRN Hypoglycemia Protocol Levalbuterol HCl 1.25 mg 06/29/24 12:30 07/02/24 05:24 Levalbuterol Neb 1.25 Mg/3 Ml INHALATION Not Given Q4HRT [facility] Metoprolol Tartrate 25 mg 06/29/24 09:00 07/01/24 21:09 Metoprolol Tartrate 25 Mg Tablet PO 25 mg Q12HR LIZA Administration Mirtazapine 15 mg 06/28/24 23:40 07/01/24 21:09 Mirtazapine 15 Mg Tablet PO 15 mg QHS LIZA Administration Ondansetron HCl 4 mg 06/28/24 20:17 Ondansetron Inj 4 Mg/2 Ml Vial IV PUSH Q4H PRN Nausea Oseltamivir Phosphate 30 mg 06/28/24 21:00 07/01/24 21:09 Oseltamivir Phosphate 30 Mg Capsule PO 07/03/24 20:59 30 mg Q12HR LIZA Administration Potassium Chloride 40 meq 06/29/24 10:50 07/01/24 08:59 Potassium Chloride 20 Meq Packet (For Liquid) PO 40 meq DAILY LIZA Administration Spironolactone 25 mg 07/02/24 09:00 Spironolactone 25 Mg Tablet PO QAM [facility] Radiology Results: ITS Impressions Venous Doppler Study 06/28/24 16:58 IMPRESSION: 1. No deep venous thrombosis in either lower limb. Upper Quadrant Ultrasound 06/30/24 09:00 IMPRESSION: Cholelithiasis, without ultrasound evidence of cholecystitis. Prominence of the right renal pelvis without jessica hydronephrosis. Chest X-Ray 07/01/24 10:57 IMPRESSION: 1. All pulmonary vascular injection of mild pulmonary edema in the lower lung zones. 2. Small bilateral pleural effusions with mild bibasilar atelectasis versus less likely pneumonia. 3. Cardiomegaly with enlargement of the central pulmonary arteries consistent with pulmonary arterial hypertension. Labs Labs: Laboratory Results - last 24 hr 06/30/24 07/01/24 07/02/24 08:41 08:24 04:56 Haptoglobin 73 Sodium 140 137 Potassium 3.1 L 3.5 Chloride 91 L 92 L Carbon Dioxide > 40 H 38 H Anion Gap 7 BUN 19 H 27 H Creatinine 0.65 L 0.65 L Estim Creat Clear Calc 43 42 Estimated GFR > 60 > 60 Glucose 104 99 Calcium 8.7 8.6 Magnesium 1.8 2.0
--- NOTE | 2024-07-02 08:52 | P.DS_ITS ---
DS: Admitting Diagnosis Discharge Date 07/02 Admitting Diagnosis (1) Severe pulmonary hypertension: Code(s): I27.20 - Pulmonary hypertension, unspecified Status: Acute (2) Right-sided heart failure: Qualifiers: Heart failure chronicity: acute on chronic Qualified Code(s): I50.813 - Acute on chronic right heart failure Code(s): I50.810 - Right heart failure, unspecified Status: Acute (3) Heart failure with preserved ejection fraction (HFpEF, >= 50%): Qualifiers: Heart failure chronicity: acute on chronic Qualified Code(s): I50.33 - Acute on chronic diastolic (congestive) heart failure Code(s): I50.30 - Unspecified diastolic (congestive) heart failure Status: Acute (4) Atrial fibrillation with rapid ventricular response: Code(s): I48.91 - Unspecified atrial fibrillation Status: Acute (5) Paroxysmal atrial fibrillation with RVR: Code(s): I48.0 - Paroxysmal atrial fibrillation Status: Acute (6) Mitral valve regurgitation: Qualifiers: Cardiac valve disease etiology: nonrheumatic Qualified Code(s): I34.0 - Nonrheumatic mitral (valve) insufficiency Code(s): I34.0 - Nonrheumatic mitral (valve) insufficiency Status: Acute (7) Hyperbilirubinemia: Code(s): E80.6 - Other disorders of bilirubin metabolism Status: Acute (8) Influenza A: Code(s): J10.1 - Influenza due to other identified influenza virus with other respiratory manifestations Status: Acute DS: Discharge Diagnosis Discharge Diagnosis (1) Severe pulmonary hypertension: Code(s): I27.20 - Pulmonary hypertension, unspecified Status: Acute (2) Right-sided heart failure: Qualifiers: Heart failure chronicity: acute on chronic Qualified Code(s): I50.813 - Acute on chronic right heart failure Code(s): I50.810 - Right heart failure, unspecified Status: Acute (3) Heart failure with preserved ejection fraction (HFpEF, >= 50%): Qualifiers: Heart failure chronicity: acute on chronic Qualified Code(s): I50.33 - Acute on chronic diastolic (congestive) heart failure Code(s): I50.30 - Unspecified diastolic (congestive) heart failure Status: Acute (4) Atrial fibrillation with rapid ventricular response: Code(s): I48.91 - Unspecified atrial fibrillation Status: Acute (5) Paroxysmal atrial fibrillation with RVR: Code(s): I48.0 - Paroxysmal atrial fibrillation Status: Acute (6) Mitral valve regurgitation: Qualifiers: Cardiac valve disease etiology: nonrheumatic Qualified Code(s): I34.0 - Nonrheumatic mitral (valve) insufficiency Code(s): I34.0 - Nonrheumatic mitral (valve) insufficiency Status: Acute (7) Hyperbilirubinemia: Code(s): E80.6 - Other disorders of bilirubin metabolism Status: Acute (8) Influenza A: Code(s): J10.1 - Influenza due to other identified influenza virus with other respiratory manifestations Status: Acute DS: Summary Hospital Course Hospital Course: 88-year-old female with a past medical history of Parkinson's, dementia, essential hypertension, depression and cardiac murmur who presented to the ER from the echo lab due to reports of bilateral lower extremity swelling and shortness of breath. The patient reports that she has been having shortness of breath for 6 months. She did not tell her daughter that she had been having shortness of breath until today. She denies having any chest pain or palpitations. Her daughter reports that she had noticed some mild swelling in the patient's legs in March but they were acutely more swollen today. She reports that the staff at [facility] called to tell her that the patient was more fatigued and could not get out of bed. They had also noted some weeping from the patient's legs. The patient's daughter reported that when she arrived to the assisted living facility she found her mother had a large incontinent bowel movement in bed it required a complete bed change. She reports the stool was brown and watery. Patient is only oriented to person and place. She is confused as to the month and year. As such her daughter provides the majority of the history with support from ER physician report, and past medical records. Patient is usually incontinent of urine at night and wears depends. In the ER patient was initially noted to be wheezing in triage. She received a hour long nebulizer treatment after which time her heart rate became acutely elevated from the 110s up into the 180s to 200 range. After adenosine it was noted that patient was in AFib. She received 1 dose of oral metoprolol 12.5 mg, 1 dose of digoxin. She did not receive the IV Lopressor. Her blood pressures after adenosine were down from the 140s to 119/94. She was started on ami odarone drip and Cardiology was consulted. The patient was also found to be positive for influenza a and was started on Tamiflu. The patient's bilirubin was noted to be mildly elevated in the ER but the remainder of her liver enzymes were normal. Patient look like she may be jaundice but the daughter did not feel the patient appears changed from baseline. She reports that the patient's level of confusion waxes and wanes. She has noticed progressive memory changes over the last year so. The following med issues have been addressed during hospitalization acute exacerbation of combined heart failure 06/28/24 Echo: EF 50-55%, mild LVE, diastolic dysfunction RV mild dysfunction, severe LaE, mod KULDEEP, mild AI, mod-severe MR, mod TR, RVSP 68 mmHg, aortic root and ascending aorta mod dilated. BNP 60046 upon arrival Likely resulting from fluid overload and uncontrolled heart rate Patient still fluid overloaded Patient continues to improve. Continue Lasix 40 mg b.i.d. IV push Changed furosemide 40 mg daily p.o. per supervisor [place], euvolemia 07/02 AFib RVR Patient received digoxin and oral metoprolol in the ER per cardiology recommendations. Rate was not controlled, patient was started on amiodarone drip. Consult supervisor [place], further management per supervisor [place] Changed to amiodarone 200 mg b.i.d. p.o. per supervisor [place] Now patient has sinus rhythm hyperbilirubinemia increased over recent months. likely due to passive congestive of the liver. CMP and indirect bilirubin. right upper quadrant ultrasound Cholelithiasis, without ultrasound evidence of cholecystitis. Hypokalemia Replete with potassium chloride 40 mg daily p.o. Corrected, potassium 3.5 today Patient positive for influenza a. Tamiflu 30 mg p.o. b.i.d. continue Tamiflu for 5 days Acute enteritis Patient is having diarrhea most likely due to influenza a/viral illness. Diarrhea resolved Chronic anemia Close baseline Given elevated indirect bilirubin, haptoglobin normal, reticulocyte within normal limit, iron panel on the lower side, ferritin 178, Goals of care discussion was had with the patient's daughter/POA. remain full code at this time Cardiologists clear patient to be discharged today. Patient will be discharged to assisted living with home health Time Spent with Patient Time attestation: Total time spent providing and/or coordinating discharge services: Exam Narrative: GENERAL: Pleasant, in no acute distress. Well-nourished. - EYES: EOMI. Anicteric. - HENT: Moist mucous membranes. - LUNGS: Clear to auscultation bilateral ly, no wheezing, rhonchi, or rales. - CARDIOVASCULAR: Regular rate and rhyth m. No murmur. No JVD. - ABDOMEN: Soft, non-tender and non-dist ended. No palpable masses. - EXTREMITIES: No edema. Peripheral puls es 2+. Non-tender. - NEUROLOGIC: No focal neurological defi cits. CN II-XII grossly intact. - PSYCHIATRIC: Awake, Alert and oriented x 3. Appropriate mood and affect. - SKIN: No rashes or lesions. Warm. - LYMPH: No cervical lymphadenopathy. DS: Data Data Completed and Pending Labs on day of discharge: Labs from last 24 hours 07/02/24 06/30/24 04:56 08:41 Haptoglobin 73 Sodium 137 Potassium 3.5 Chloride 92 L Carbon Dioxide 38 H Anion Gap 7 BUN 27 H Creatinine 0.65 L Estim Creat Clear Calc 42 Estimated GFR > 60 Glucose 99 Calcium 8.6 Magnesium 2.0 Discharge Plan Discharge Attending physician on discharge: Ruslan Mahan Consulting providers: Talha Amos Discharging Clinician: Ruslan Mahan Anticipated Discharge Date/Time: 07/02/24 08:52 Patient Disposition: NH Assisted/Asst Living Activity: as tolerated Diet: as tolerated and heart healthy Patient Instructions: Antibiotic Form, Metoprolol (By mouth), Amiodarone (By mouth), Apixaban (By mouth), Heart Failure (DC), A-fib (Atrial Fibrillation) (DC), Influenza (DC) Patient Language: Mohawk Stand Alone Forms: General Discharge Information Follow-up/Referrals: Talha Amos DO [Physician] - (Patient needs to see supervisor [place] at scheduled appointment) Luis Almeida DO [Primary Care Provider] - (Patient needs to see primary care doctor in 1 week) Discharge Medications: New furosemide 40 mg Tablet 40 mg PO DAILY Qty: 60 0RF amiodarone [Pacerone] 200 mg Tablet 200 mg PO BID Qty: 60 0RF spironolactone 25 mg Tablet 25 mg PO QAM Qty: 60 0RF metoprolol tartrate 25 mg Tablet 25 mg PO Q12HR Qty: 60 0RF Eliquis 2.5 mg Tablet 2.5 mg PO Q12HR Qty: 60 0RF oseltamivir [Tamiflu] 30 mg Capsule 30 mg PO Q12HR Qty: 3 0RF Continued mirtazapine 15 mg tablet 15 mg PO QHS carbidopa-levodopa 50-200 mg tablet extended release 2 tablet PO QHS carbidopa-levodopa 25-100 mg tablet 1 tablet PO TID Rx Instructions: 3 tabs at 8:00 AM, 12:00 PM, and 6:00 PM. gabapentin 100 mg capsule 100 mg PO DAILY acetaminophen 500 mg tablet 500 mg PO Q8H PRN (Reason: pain) Qty: 90 2RF Date of admission: 06/28/24 20:20 Primary Care Provider: Luis Almeida Admitting Provider: Kaia Graham Attending physician on admission: Kaia Graham Condition: Serious
[2024-07-02] MEDS: AMIODARONE HCL 200 MG TABLET PO (09:42)
[2024-07-02] MEDS: GABAPENTIN 100 MG CAPSULE PO (09:42)
[2024-07-02] MEDS: POTASSIUM CHLORIDE 20 MEQ PACKET (FOR LIQUID) 40 MEQ PO (09:42)
[2024-07-02] MEDS: METOPROLOL TARTRATE 25 MG TABLET PO (09:43)
[2024-07-02] MEDS: FUROSEMIDE 40 MG TABLET PO (09:43)
[2024-07-02] MEDS: OSELTAMIVIR PHOSPHATE 30 MG CAPSULE PO (09:43)
[2024-07-02] MEDS: SPIRONOLACTONE 25 MG TABLET PO (09:43)
[2024-07-02] MEDS: APIXABAN 2.5 MG TABLET PO (09:43)
[2024-07-02] MEDS: CARBIDOPA/LEVODOPA 25/100 MG TABLET 3 TABLET PO ×2 (09:44→14:04)
--- NOTE | 2024-07-02 14:19 | PC.NURSE ---
Reviewed discharge paperwork with patient's daughter as the patient over the phone as the patient is noted to be forgetful. Discussed with her follow up appointments which she as already scheduled based on a previous conversation this RN had with her this morning and medications. Discussed that this paper work would be going back with the patient and that she can show it to the nurses when she arrives at [facility]. Family member states that she and her are about to leave their home and will meet her at the snf and will review all of the paper work closer when she gets there and give it to the nurses station. Denies further questions at this time.
== END 2024-07-02 14:44 | DRG 291 ==
LOC: ANHED 18:44 → ANHIMU 21:49
PROVIDERS: Physician Assistant; Admitting Provider Internal Medicine; Emergency Provider Physician Assistant; PCP Internal Medicine; Visit Provider Hospitalist
DX: I11.0 Hypertensive heart disease with heart failure (principal); I50.33 Acute on chronic diastolic (congestive) heart failure; D56.9 Thalassemia, unspecified; E80.6 Other disorders of bilirubin metabolism; F32.A Depression, unspecified; F03.90 Unspecified dementia, unspecified severity, without behavioral disturbance, psychotic disturbance, mood disturbance, and anxiety; G20.A1 Parkinson's disease without dyskinesia, without mention of fluctuations; H91.90 Unspecified hearing loss, unspecified ear; I50.813 Acute on chronic right heart failure; I27.20 Pulmonary hypertension, unspecified; I48.0 Paroxysmal atrial fibrillation; I34.0 Nonrheumatic mitral (valve) insufficiency; J10.1 Influenza due to other identified influenza virus with other respiratory manifestations; K52.9 Noninfective gastroenteritis and colitis, unspecified; Z20.822 Contact with and (suspected) exposure to COVID-19; Z79.01 Long term (current) use of anticoagulants; Z85.828 Personal history of other malignant neoplasm of skin; Z98.41 Cataract extraction status, right eye; Z98.42 Cataract extraction status, left eye; Z96.1 Presence of intraocular lens; Z90.49 Acquired absence of other specified parts of digestive tract
CPT/HCPCS: 36415; 71045; 76705; 80048; 80053; 82728; 83010; 83540; 83550; 83615; 83735; 83880; 84484; 85025; 85027; 85046; 85055; 85610; 85730; 87637; 93005; 93306; 93970; 94640; 96365; 96366; 96375; 97161; 97165; 99285; A9270; J0153; J0282; J1650; J1940; J7040

== ENCOUNTER 2024-07-17 17:14 | Emergency (ER) | payer MEDICARE, MEDICAID, SELFPAY ==
[2024-07-17 17:15] VITALS: BP 139/67; PULSE 50; RESP 18; TEMP 36.6; O2SAT 100
--- OUTSIDE RECORDS SUMMARY | 2024-07-17 18:02 | XMS_ITS | Referral Summary ---
Author Organization [facility] Address [address] [place] [address] Care Team Providers Care Tobacco Wrapping Machine Tender Name Role Phone Luis Almeida DO Primary Care Provider [phone] Encounters Date Type Department Care Team Description 06/27/2024 Telephone [facility] [address] [place] [address] 1st [place] [address] Reyna Lewis COA 06/17/2024 12:00 PM LAND MANAGER Office Visit [facility] Movement [facility] [address] [place] [address] Advanced Medicine 7th [place] [address] Elizabeth Barriga NP Parkinson disease (HCC) from Last 3 Months Allergies Active Allergy Reactions Criticality Noted Date Comments Epinephrine Unknown Medium 11/29/2022 Influenza Virus Vaccine Bivalent Itching Low Metronidazole Nausea only Low Sulfa (Sulfonamide Antibiotics) Rash Medium Medications docusate sodium (COLACE) 100 mg capsuleIndicati ons:constipatio n Take 1 capsule (100 mg total) by mouth as needed for constipation Active acetaminophen (TYLENOL) 500 mg tablet Take 1 tablet (500 mg total) by mouth every 6 (six) hours as needed for pain Active carbidopa-levod opa (SINEMET) 25-100 mg per tabletIndicatio ns:Parkinsonism Take 3 tabs at 8:00am, 12:00pm, and 4:00pm. 810 tablet 3 5 Active carbidopa-levod opa CR (SINEMET CR) 50-200 mg per CR tablet Take 2 tabs at 8:00pm. 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 [...] UBM. Repeat biopsy on 12/02/[address] oSares. Pathology with melanoma but clear margins (margins [...] tumor 09/14/22 OS and was sent to [facility] The path was read as conj melanoma [...] 04/03/2018 Assessment & Plan (06/17/2024 12:44 PM LAND MANAGER): Mrs. Mckoy was doing well overall. [...] hydrated Assessment & Plan (06/09/2023 1:32 PM LAND MANAGER): Mrs. Mckoy presented for a follow [...] is scheduled to follow up with her stave cutting supervisor today post surgical removal of melanoma. Recommendations [...] She was drinking boost. She lived at [facility] in assisted living and her daughter [...] Our office will fax OT/PT orders to [facility] ATTN Alba at [phone] A message will be sent to the [...] management Assessment & Plan (04/28/2021 2:22 PM LAND MANAGER): Ms. Haven Mckoy is a 85 [...] encounter. Assessment & Plan (06/17/2020 11:03 AM LAND MANAGER): Ms. Haven Mckoy is a 84 y.o. female, who presents for follow-up for Parkinson's disease (PD), complicated by low back pain. 1. PD. She is about the same since the last visit. She continues to have networks computer consultant stiffness and increase in nighttime carbidopa-levodopa CR has not helped. We discussed gabapentin and she was willing to try. - Start gabapentin 100 mg with titration to 3 capsules at bedtime. Titration schedule was given through [email or web address]. Additional doses changes may be needed. - [...] effects were discussed during the encounter, including networks computer consultant sedation with gabapentin. Assessment & Plan (12/16/2019 [...] 2 tablets at bedtime to help with networks computer consultant off. - Continue carbidopa-levodopa 25-100 mg at the current dose. - Establish a regular exercise routine. - She should discuss with PCP about the use of BP medication and the vertigo. Assessment & Plan (03/21/2019 4:34 PM LAND MANAGER): Ms. Haven Mckoy is a 83 y.o. female, who presents for follow-up for PD. She is transferring her care from Dr. Jaramillo. Per chart review, she has had symptoms since 2015 with good response to levodopa therapy. She [...] diagnostic imaging of melody t 01/06/2014 Immunizations Immunization Administration Dates Next Due Influenza, Trivalent, High [...] on file Legal Sex Female 8:35 PM LAND MANAGER Gender Identity Female 01/25/2022 6:38 PM CDT Sexual Orientation Not on file Last Filed Vital Signs Vital Sign Reading Time Taken Comments Blood Pressure 130/80 06/17/2024 11:54 AM LAND MANAGER Pulse 66 06/17/2024 11:54 AM LAND MANAGER Temperature 36.1 C (97 F) 12/02/2022 10:25 AM CDT Respiratory Rate 17 12/02/2022 3:40 PM CDT Oxygen Saturation 95% 12/02/2022 3:40 PM CDT Inhaled Oxygen Concentration - - Weight 61.7 kg (136 lb) 06/17/2024 11:54 AM LAND MANAGER Height 162.6 cm (5' 4 ) 06/17/2024 11:54 AM LAND MANAGER Body Mass Index 23.34 06/17/2024 11:54 AM LAND MANAGER Plan of Treatment Not on file Insurance AETNA MEDICARE GOLD ID[facility] IDPA AETNA MEDICARE GOLD ID[place] AETNA MEDICARE GOLD Care Teams Tobacco Wrapping Machine Tender Relationship Specialty Start Date End Date Luis Almeida DO PCP - General Internal Medicine 01/06/21
--- OUTSIDE RECORDS SUMMARY | 2024-07-17 18:02 | XMS_ITS | Clinical Summary ---
Author Organization [facility] Address [address] [place] [address] Care Team Providers Care Career Education Teacher Name Role Phone Luis Almeida DO Primary Care Provider [phone]- [phone] Allergies Active Allergy Reactions Criticality Noted Date [...] tumor 09/14/22 OS and was sent to [facility] The path was read as [...] 04/03/2018 Assessment & Plan (06/17/2024 12:44 PM CHILD DAY CARE PROVIDER): Mrs. Mckoy was doing well overall. She [...] up as planned in December with Dr. Kayode Santamaria precaution Assessment & Plan (12/08/2023 12:36 PM [...] hydrated Assessment & Plan (06/09/2023 1:32 PM CHILD DAY CARE PROVIDER): Mrs. Mckoy presented for a follow up. [...] is scheduled to follow up with her accelerator systems director today post surgical removal of melanoma. Recommendations [...] She was drinking boost. She lived at [facility] in assisted living and her daughter [...] Our office will fax OT/PT orders to [facility] ATTN Alba at [phone] A message will be sent to the [...] management Assessment & Plan (04/28/2021 2:22 PM CHILD DAY CARE PROVIDER): Ms. Haven Mckoy is a 85 y.o. [...] encounter. Assessment & Plan (06/17/2020 11:03 AM CHILD DAY CARE PROVIDER): Ms. Haven Mckoy is a 84 y.o. female, who presents for follow-up for Parkinson's disease (PD), complicated by low back pain. 1. PD. She is about the same since the last visit. She continues to have cloud security architect stiffness and increase in nighttime carbidopa-levodopa CR has not helped. We discussed gabapentin and she was willing to try. - Start gabapentin 100 mg with titration to 3 capsules at bedtime. Titration schedule was given through [employer]. Additional doses changes may be needed. - [...] effects were discussed during the encounter, including cloud security architect sedation with gabapentin. Assessment & Plan [...] 2 tablets at bedtime to help with cloud security architect off. - Continue carbidopa-levodopa 25-100 mg at the current dose. - Establish a regular exercise routine. - She should discuss with PCP about the use of BP medication and the vertigo. Assessment & Plan (03/21/2019 4:34 PM CHILD DAY CARE PROVIDER): Ms. Haven Mckoy is a 83 y.o. [...] Care Team Description 06/27/2024 Telephone [facility] Ophthalmology [address] [place] [address] [place] [address] Reyna Lewis COA 06/17/2024 12:00 PM CHILD DAY CARE PROVIDER Office Visit [facility] Movement Disorders [address] [facility] 7th Floor [place] [id number] Elizabeth Barriga NP Parkinson disease (HCC) from Last 3 Months Immunizations Immunization Administration Dates Next Due Influenza, Trivalent, High D ose, Split, Preservative Free, Intramuscular 06/14/2017 Surgical History Surgery Date Site/Laterality Comments FL TOTAL ABDOMINAL HYSTERECT W/WO RMVL TUBE OVARY Hysterectomy - (Added by TW Conv) FL COLECTOMY PARTIAL W/ANASTOMOSIS Partial Colectomy - (Added by TW Conv) APPENDECTOMY TONSILLECTOMY CATARACT EXTRACTION Right Medical History Medical History Date Comments Personal history of other di seases of the nervous system and sense organs History of migraine wi th aura - (Added by TW Conv) Cataract H/O total knee replacement H/O: hysterectomy Parkinson disease (HCC) Hypertension Cancer (HCC) colon Family History Medical History Relation [...] on file Legal Sex Female 8:35 PM CHILD DAY CARE PROVIDER Gender Identity Female 01/25/2022 6:38 PM CDT Sexual Orientation Not on file Obstetrics History Last Filed Vital Signs Vital Sign Reading Time Taken Comments Blood Pressure 130/80 06/17/2024 11:54 AM CHILD DAY CARE PROVIDER Pulse 66 06/17/2024 11:54 AM CHILD DAY CARE PROVIDER Temperature 36.1 C (97 F) 12/02/2022 10:25 AM CDT Respiratory Rate 17 12/02/2022 3:40 PM CDT Oxygen Saturation 95% 12/02/2022 3:40 PM CDT Inhaled Oxygen Concentration - - Weight 61.7 kg (136 lb) 06/17/2024 11:54 AM CHILD DAY CARE PROVIDER Height 162.6 cm (5' 4 ) 06/17/2024 11:54 AM CHILD DAY CARE PROVIDER Body Mass Index 23.34 06/17/2024 11:54 AM CHILD DAY CARE PROVIDER Plan of Treatment Health Maintenance Due Date Last Done Comments DTaP/Tdap/Td Vaccine (1 - Tdap) 10/24/1946 Hepatitis B Screening 1954 Pneumococcal vaccine 65+ (1 of 1 - PCV) 1986 Zoster Vaccine (1 of 2) 1986 Well Visit 65+ 2001 Fall Risk Assessment 12/03/2023 12/02/2022 Influenza Vaccine (#1) 2024 06/14/2017 Depression Screening 12/07/2024 12/08/2023 Insurance AETNA MEDICARE [facility] Member Subscriber Plan / Payer (Ef fective 2017-Present) Name:Haven Mckoy Relation to Subscriber:Self Name:Haven Mckoy Payer ID:[id number] (NAIC) Type:Not on file Address: [place] [id number] [facility] Member Subscriber Plan / Payer (Ef fective 2019-Present) Name:Haven Mckoy Relation to Subscriber:Self Name:Haven Mckoy Payer ID:[id number] (NAIC) Type:Not on file Address: [place] [id number] [facility] AETNA MEDICARE GOLD [facility] IDPA AETNA MEDICARE GOLD Care Teams Career Education Teacher Relationship Specialty Start Date End Date Luis Almeida DO PCP - General Internal Medicine 01/06/21
--- NOTE | 2024-07-17 18:19 | ED_ITS ---
HPI - Epistaxis General Chief complaint: Epistaxis Stated complaint: nosebleed Time Seen by Provider: 07/17/24 17:27 Source: patient and family Mode of arrival: EMS Limitations: other (poor historian, patient is hard of hearing) History of Present Illness HPI Narrative: This is a 88 year old female that presents to the ER for nosebleed. Reports she has had several nosebleeds today. She takes Eliquis for history of Afib. Related Data Home Medications ?Medication ?Instructions ?Recorded ?Confirmed ?Last Taken ?Type carbidopa 25 mg-levodopa 100 mg 1 tablet PO TID 09/08/21 07/11/24 06/28/24 History tablet carbidopa ER 50 mg-levodopa 200 mg 2 tablet PO QHS 09/08/21 07/11/24 06/27/24 History tablet,extended release mirtazapine 15 mg tablet 15 mg PO QHS 06/21/22 07/11/24 06/27/24 History gabapentin 100 mg capsule 100 mg PO BID 07/11/24 07/11/24 Unknown History Allergies Allergy/AdvReac Type Severity Reaction Status Date / Time Sulfa (Sulfonamide Allergy Unknown Hives Verified 07/17/24 17:24 Antibiotics) Review of Systems Review of Systems: CONSTITUTIONAL: Denies fever, ENT: Reports epistaxis All systems reviewed & are unremarkable except as noted in HPI and below PMFSH Past Medical History Medical History (Updated 07/17/24 @ 19:43 by Emily Severino PA-C) Melanoma of eye Left eye with surgical removal 2022 Dementia Progressive memory changes Since early 2023 Hearing Loss 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 Essential hypertension Thalassemia Hypertension Parkinson disease Surgical History Surgical History History of tonsillectomy and adenoidectomy Status post cataract extraction of both eyes with insertion of intraocular lens H/O colectomy (1995) Right hemicolectomy with end-to-end anastomosis Due to colon cancer, most recent colonoscopy 2010 Knee joint replacement status H/O: hysterectomy 1969's Hx of appendectomy Family History Family History Father Brain tumor Mother Breast cancer Grandparent Diabetes mellitus Son , at age 62 Alcoholism Dilated cardiomyopathy Social History Social History Social History: The patient lives in [facility]. She had a daughter and a son. Her daughter is still living. She is a lifelong nonsmoker and does not drink alcohol. She ambulates with a Rollator. Code status: Full code Healthcare power of personal injury attorney: Tara Lock (daughter) Smoking status: Never smoker Alcohol intake: never Substance use: never Do You Feel Safe in your Home?: Yes Lack of Transportation: No Lack of Food: Never True Current Housing: I Have Housing Concerned About Future Housing: No Difficulty Paying Gas/Electric Bills: No Difficulty Paying for Meds: No Currently Unemployed: No Education: Decline to Answer Difficulty w/ Childcare or Family Care: No Spiritual care concerns: No Exam Narrative: GENERAL: Well-appearing, well-nourished, and in no acute distress. HEAD: Normocephalic, atraumatic. EYES: EOMI. ENT: Right sided epistaxis. Mucous membranes moist. Oropharynx without tonsillar hypertrophy exudate or other lesions. NECK: Supple. No adenopathy or masses. CHEST: No respiratory distress. HEART: Regular rate EXTREMITIES: Normal range of motion. No edema. SKIN: Warm, dry, no rash. NEURO: No focal deficits. Alert and oriented x3. PSYCH: Normal mood and affect Course Course Emergency Course: patient and family agree with plan of care Consultations Consultation #1: Spoke with Dr. Skelton, ENT at [facility]. Patient may follow up in clinic Date: 07/17/24 Vital Signs Vital signs: Vital Signs Temperature 97.9 F 07/17/24 17:15 Pulse Rate 50 L 07/17/24 17:15 Respiratory Rate 18 07/17/24 17:15 Blood Pressure 139/67 07/17/24 17:15 Pulse Oximetry 100 07/17/24 17:15 Oxygen Delivery Room Air 07/17/24 17:15 Temperature 97.9 F 07/17/24 17:15 Pulse Rate 50 L 07/17/24 17:15 Respiratory Rate 18 07/17/24 17:15 Blood Pressure 139/67 07/17/24 17:15 Pulse Oximetry 100 07/17/24 17:15 Oxygen Delivery Room Air 07/17/24 17:15 Procedures Epistaxis Control right: Epistaxis Control Date: 07/17/24 Epistaxis Control Time: 19:52 Nose Prepped With: oxymetazoline Direct Inspection: unable to visualize Clots Removed by: manually Cautery Used: none Device Inserted: nasal tampon Device Size: 4 Patient Tolerated Procedure: well and no complications MDM - Epistaxis MDM Narrative Medical decision making narrative: Patient presents to the emergency department for epistaxis. Bleeding was controlled with rhino rocket. Will be given follow-up with ENT. Started on prophylactic antibiotics. They were given warnings to return to the ER Differential Diagnosis Differential diagnosis: Likely anterior epistaxis and posterior epistaxis Critical Care Time Critical Care Time Critical Care Time: No Discharge Plan Discharge Clinical Impression: Epistaxis Patient Disposition: NH Intermediate/Asst Living Condition: Stable Instructions: Antibiotic Form, Nosebleed (ED) Additional Instructions: Return to the emergency department if you experience fever, bleeding you are unable to control, or any other symptoms that are concerning to you. Leave the packing in place until you see ENT. Take oral antibiotic as prescribed Follow up with ENT. Dr. Summers is our workforce consultant ENT. Or you may call [facility] ENT for follow up Patient Language: Sami Prescriptions: New amoxicillin-pot clavulanate 875-125 mg tablet 1 tablet PO Q12H 3 Days Qty: 6 0RF No Action mirtazapine 15 mg tablet 15 mg PO QHS furosemide 40 mg tablet 20 mg PO DAILY Qty: 60 0RF gabapentin 100 mg capsule 100 mg PO BID carbidopa-levodopa 50-200 mg tablet extended release 2 tablet PO QHS carbidopa-levodopa 25-100 mg tablet 1 tablet PO TID Rx Instructions: 3 tabs at 8:00 AM, 12:00 PM, and 6:00 PM. amiodarone [Pacerone] 200 mg Tablet 200 mg PO BID Qty: 60 0RF metoprolol tartrate 25 mg Tablet 25 mg PO Q12HR Qty: 60 0RF Eliquis 2.5 mg Tablet 2.5 mg PO Q12HR Qty: 60 0RF acetaminophen 500 mg tablet 500 mg PO Q8H PRN (Reason: pain) Qty: 90 2RF Follow-up/Referrals: Lemuel Summers MD [Physician] - UNKNOWN,DOCTOR [Primary Care Provider] - Stand Alone Forms: Penitentiary Discharge
[2024-07-17 20:22] VITALS: BP 137/76; PULSE 78; RESP 16; O2SAT 98
== END 2024-07-17 20:23 ==
PROVIDERS: Emergency Provider Physician Assistant
DX: R04.0 Epistaxis (principal); I48.91 Unspecified atrial fibrillation; I10 Essential (primary) hypertension; G20.A1 Parkinson's disease without dyskinesia, without mention of fluctuations; F03.90 Unspecified dementia, unspecified severity, without behavioral disturbance, psychotic disturbance, mood disturbance, and anxiety; Z96.659 Presence of unspecified artificial knee joint; Z85.840 Personal history of malignant neoplasm of eye; Z85.828 Personal history of other malignant neoplasm of skin; Z96.1 Presence of intraocular lens; Z98.42 Cataract extraction status, left eye; Z98.41 Cataract extraction status, right eye; Z90.49 Acquired absence of other specified parts of digestive tract; Z90.710 Acquired absence of both cervix and uterus; Z79.01 Long term (current) use of anticoagulants; Z79.899 Other long term (current) drug therapy
CPT/HCPCS: 30901; 99283; A9270

== ENCOUNTER 2024-07-19 04:42 | Emergency (ER) | payer MEDICARE, MEDICAID, SELFPAY ==
[2024-07-19 04:42] VITALS: BP 128/66; PULSE 61; RESP 15; TEMP 36.4; O2SAT 97
--- NOTE | 2024-07-19 04:58 | ED_ITS ---
HPI - General Adult General Chief complaint: Epistaxis Stated complaint: epistaxis Time Seen by Provider: 07/19/24 04:47 History of Present Illness HPI narrative: Patient is a 8-year-old female who presents emergency department chief complaint of nose bleed the patient had a Rapid rhino in her nostril that was a short 1 and reports that she is still having bleeding this started again around 4:00 a.m. Related Data Home Medications ?Medication ?Instructions ?Recorded ?Confirmed ?Last Taken ?Type carbidopa 25 mg-levodopa 100 mg 1 tablet PO TID 09/08/21 07/11/24 06/28/24 History tablet carbidopa ER 50 mg-levodopa 200 mg 2 tablet PO QHS 09/08/21 07/11/24 06/27/24 History tablet,extended release mirtazapine 15 mg tablet 15 mg PO QHS 06/21/22 07/11/24 06/27/24 History gabapentin 100 mg capsule 100 mg PO BID 07/11/24 07/11/24 Unknown History Allergies Allergy/AdvReac Type Severity Reaction Status Date / Time Sulfa (Sulfonamide Allergy Unknown Hives Verified 07/19/24 04:45 Antibiotics) Review of Systems Review of Systems: A 10 system review of systems was completed on the patient and is negative except for what is stated in the HPI. Nursing and ancillary documentation was reviewed. 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 Essential hypertension Thalassemia Hypertension Parkinson disease Surgical History Surgical History History of tonsillectomy and adenoidectomy Status post cataract extraction of both eyes with insertion of intraocular lens H/O colectomy (1995) Right hemicolectomy with end-to-end anastomosis Due to colon cancer, most recent colonoscopy 2010 Knee joint replacement status H/O: hysterectomy 1969's Hx of appendectomy Family History Family History Father Brain tumor Mother Breast cancer Grandparent Diabetes mellitus Son , at age 62 Alcoholism Dilated cardiomyopathy Social History Social History Social History: The patient lives in [facility]. She had a daughter and a son. Her daughter is still living. She is a lifelong nonsmoker and does not drink alcohol. She ambulates with a Rollator. Code status: Full code Healthcare power of trust and estates attorney: Tara Lock (daughter) Smoking status: Never smoker Alcohol intake: never Substance use: never Do You Feel Safe in your Home?: Yes Lack of Transportation: No Lack of Food: Never True Current Housing: I Have Housing Concerned About Future Housing: No Difficulty Paying Gas/Electric Bills: No Difficulty Paying for Meds: No Currently Unemployed: No Education: Decline to Answer Difficulty w/ Childcare or Family Care: No Spiritual care concerns: No Exam Narrative: GENERAL: Well-appearing, well-nourished, and in no acute distress. HEAD: Normocephalic, atraumatic. EYES: PERRLA and EOMI. ENT: Nares clear, no rhinorrhea active epistaxis present packing present in the right nostril. Mucous membranes moist. NECK: Supple. CHEST: Clear to auscultation. No respiratory distress. HEART: Regular rate and rhythm. No murmur heard. Normal peripheral pulses. ABDOMEN: Soft, nontender, nondistended, normal active bowel sounds. EXTREMITIES: Normal range of motion. No edema. SKIN: Warm, dry, no rash. NEURO: No focal deficits. Alert and oriented x3. PSYCH: Normal mood and affect. Course Vital Signs Vital signs: Vital Signs Temperature 36.4 C 07/19/24 04:42 Pulse Rate 61 07/19/24 04:42 Respiratory Rate 15 07/19/24 04:42 Blood Pressure 128/66 07/19/24 04:42 Pulse Oximetry 97 07/19/24 04:42 Oxygen Delivery Room Air 07/19/24 04:42 Temperature 36.4 C 07/19/24 04:42 Pulse Rate 61 07/19/24 04:42 Respiratory Rate 15 07/19/24 04:42 Blood Pressure 128/66 07/19/24 04:42 Pulse Oximetry 97 07/19/24 04:42 Oxygen Delivery Room Air 07/19/24 04:42 Procedures Epistaxis Control right: Epistaxis Control Date: 07/19/24 Epistaxis Control Time: 04:59 Time Out Performed: Yes Nose Prepped With: lidocaine Direct Inspection: unable to visualize Clots Removed by: blowing nose Cautery Used: none Device Inserted: hemostatic balloon Device Size: 75 Patient Tolerated Procedure: well and no complications Medical Decision Making MDM Narrative Medical decision making narrative: The patient had a 5.5 cm pack in the right nostril and was replaced with a 7.5 Vital Signs Vital Signs: Vital Signs Temperature 36.4 C 07/19/24 04:42 Pulse Rate 61 07/19/24 04:42 Respiratory Rate 15 07/19/24 04:42 Blood Pressure 128/66 07/19/24 04:42 Pulse Oximetry 97 07/19/24 04:42 Oxygen Delivery Room Air 07/19/24 04:42 Temperature 36.4 C 07/19/24 04:42 Pulse Rate 61 07/19/24 04:42 Respiratory Rate 15 07/19/24 04:42 Blood Pressure 128/66 07/19/24 04:42 Pulse Oximetry 97 07/19/24 04:42 Oxygen Delivery Room Air 07/19/24 04:42 Discharge Plan Discharge Clinical Impression: Epistaxis Patient Disposition: Home, Self-Care Condition: Stable Instructions: Antibiotic Form, Nosebleed (ED) Additional Instructions: The packing was changed in your nose today please follow-up with ear nose and throat Patient Language: Barbadian Prescriptions: No Action mirtazapine 15 mg tablet 15 mg PO QHS furosemide 40 mg tablet 20 mg PO DAILY Qty: 60 0RF gabapentin 100 mg capsule 100 mg PO BID carbidopa-levodopa 50-200 mg tablet extended release 2 tablet PO QHS carbidopa-levodopa 25-100 mg tablet 1 tablet PO TID Rx Instructions: 3 tabs at 8:00 AM, 12:00 PM, and 6:00 PM. amiodarone [Pacerone] 200 mg Tablet 200 mg PO BID Qty: 60 0RF metoprolol tartrate 25 mg Tablet 25 mg PO Q12HR Qty: 60 0RF Eliquis 2.5 mg Tablet 2.5 mg PO Q12HR Qty: 60 0RF amoxicillin-pot clavulanate 875-125 mg tablet 1 tablet PO Q12H 3 Days Qty: 6 0RF acetaminophen 500 mg tablet 500 mg PO Q8H PRN (Reason: pain) Qty: 90 2RF Follow-up/Referrals: Lemuel Summers MD [Physician] - Kendra Huerta NP [Primary Care Provider] - Time of Disposition: 05:38
--- OUTSIDE RECORDS SUMMARY | 2024-07-19 05:46 | XMS_ITS | Referral Summary ---
Author Organization [facility] al Address 1 [place] [address] Care Team Providers Care Rail Operator Name Role Phone Luis Almeida DO Primary Care Provider +1- [phone] Encounters Date Type Department Care Team Description 07/18/2024 Telephone [facility] ([facility]) - [facility] ENT [address] [facility] 11th [place] [address] [place] [phone] Laine Aguilera, MS 06/27/2024 Telephone [facility] Ophthalmology [address] [place] [address] 1st [place] [address] Reyna Lewis COA 06/17/2024 12:00 PM CHECK WRITER SALESPERSON Office Visit [facility] Movement Disorders [address] [facility] 7th [place] [address] Elizabeth Barriga NP Parkinson disease [...] 04/03/2018 Assessment & Plan (06/17/2024 12:44 PM CHECK WRITER SALESPERSON): Mrs. Mckoy was doing well overall. She [...] hydrated Assessment & Plan (06/09/2023 1:32 PM CHECK WRITER SALESPERSON): Mrs. Mckoy presented for a follow up. [...] is scheduled to follow up with her lead shop operator today post surgical removal of melanoma. [...] She was drinking boost. She lived at [facility] in assisted living and her daughter [...] Our office will fax OT/PT orders to [facility] ATTN Alba at [phone] A message will be sent to the [...] management Assessment & Plan (04/28/2021 2:22 PM CHECK WRITER SALESPERSON): Ms. Haven Mckoy is a 85 y.o. [...] encounter. Assessment & Plan (06/17/2020 11:03 AM CHECK WRITER SALESPERSON): Ms. Haven Mckoy is a 84 y.o. female, who presents for follow-up for Parkinson's disease (PD), complicated by low back pain. 1. PD. She is about the same since the last visit. She continues to have gynecological assistant stiffness and increase in nighttime carbidopa-levodopa CR has not helped. We discussed gabapentin and she was willing to try. - Start gabapentin 100 mg with titration to 3 capsules at bedtime. Titration schedule was given through [facility]. Additional doses changes may be needed. - [...] effects were discussed during the encounter, including gynecological assistant sedation with gabapentin. Assessment & Plan (12/16/2019 [...] 2 tablets at bedtime to help with gynecological assistant off. - Continue carbidopa-levodopa 25-100 mg at the current dose. - Establish a regular exercise routine. - She should discuss with PCP about the use of BP medication and the vertigo. Assessment & Plan (03/21/2019 4:34 PM CHECK WRITER SALESPERSON): Ms. aHven Mckoy is a 83 y.o. female, who [...] on file Legal Sex Female 8:35 PM CHECK WRITER SALESPERSON Gender Identity Female 01/25/2022 6:38 PM CDT Sexual Orientation Not on file Last Filed Vital Signs Vital Sign Reading Time Taken Comments Blood Pressure 130/80 06/17/2024 11:54 AM CHECK WRITER SALESPERSON Pulse 66 06/17/2024 11:54 AM CHECK WRITER SALESPERSON Temperature 36.1 C (97 F) 12/02/2022 10:25 AM CDT Respiratory Rate 17 12/02/2022 3:40 PM CDT Oxygen Saturation 95% 12/02/2022 3:40 PM CDT Inhaled Oxygen Concentration - - Weight 61.7 kg (136 lb) 06/17/2024 11:54 AM CHECK WRITER SALESPERSON Height 162.6 cm (5' 4 ) 06/17/2024 11:54 AM CHECK WRITER SALESPERSON Body Mass Index 23.34 06/17/2024 11:54 AM CHECK WRITER SALESPERSON Plan of Treatment Not on file Insurance AETNA MEDICARE GOLD [facility] AETNA MEDICARE GOLD AETNA MEDICARE GOLD Care Teams Rail Operator Relationship Specialty Start Date End Date Luis Almeida DO PCP - General Internal Medicine 01/06/21
--- OUTSIDE RECORDS SUMMARY | 2024-07-19 05:46 | XMS_ITS | Clinical Summary ---
Author Organization [facility] Address 1 [place] [address] Care Team Providers Care Social Work Assistant Name Role Phone Luis Almeida DO Primary Care Provider +1- [phone] Allergies Active Allergy Reactions Criticality Noted Date [...] tumor 09/14/22 OS and was sent to [facility] The path was read as conj [...] 04/03/2018 Assessment & Plan (06/17/2024 12:44 PM SUPERVISOR SHUTTLE PREPARATION): Mrs. Mckoy was doing well overall. She [...] hydrated Assessment & Plan (06/09/2023 1:32 PM SUPERVISOR SHUTTLE PREPARATION): Mrs. Mckoy presented for a follow up. [...] is scheduled to follow up with her redrawer today post surgical removal of melanoma. Recommendations [...] She was drinking boost. She lived at [facility] in assisted living and her daughter would [...] Our office will fax OT/PT orders to [facility] ATTN Alba at [phone] A message will be sent to the [...] management Assessment & Plan (04/28/2021 2:22 PM SUPERVISOR SHUTTLE PREPARATION): Ms. Haven Mckoy is a 85 y.o. [...] encounter. Assessment & Plan (06/17/2020 11:03 AM SUPERVISOR SHUTTLE PREPARATION): Ms. Haven Mckoy is a 84 y.o. female, who presents for follow-up for Parkinson's disease (PD), complicated by low back pain. 1. PD. She is about the same since the last visit. 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 We discussed gabapentin and she was willing to try. - Start gabapentin 100 mg with titration to 3 capsules at bedtime. Titration schedule was given through [employer]. Additional doses changes may be needed. - [...] effects were discussed during the encounter, including securities supervisor sedation with gabapentin. Assessment & Plan (12/16/2019 [...] 2 tablets at bedtime to help with securities supervisor off. - Continue carbidopa-levodopa 25-100 mg at the current dose. - Establish a regular exercise routine. - She should discuss with PCP about the use of BP medication and the vertigo. Assessment & Plan (03/21/2019 4:34 PM SUPERVISOR SHUTTLE PREPARATION): Ms. Haven Mckoy is a 83 y.o. [...] Type Department Care Team Description 07/18/2024 Telephone [facility] Advanced Medicine ([facility] - [facility] ENT [address] [facility] [address] [place] [address] [place] [phone] Laine Aguilera, 06/27/2024 Telephone [facility] Ophthalmology [address] [place] [address] 1st [place] [phone] Renya Lewis COA 06/17/2024 12:00 PM SUPERVISOR SHUTTLE PREPARATION Office Visit [facility] Movement Disorders [address] [facility] 7th [place] [address] Elizabeth Barriga, EDITH Parkinson disease (HCC) from [...] on file Legal Sex Female 8:35 PM SUPERVISOR SHUTTLE PREPARATION Gender Identity Female 01/25/2022 6:38 PM CDT Sexual Orientation Not on file Obstetrics History Last Filed Vital Signs Vital Sign Reading Time Taken Comments Blood Pressure 130/80 06/17/2024 11:54 AM SUPERVISOR SHUTTLE PREPARATION Pulse 66 06/17/2024 11:54 AM SUPERVISOR SHUTTLE PREPARATION Temperature 36.1 C (97 F) 12/02/2022 10:25 AM CDT Respiratory Rate 17 12/02/2022 3:40 PM CDT Oxygen Saturation 95% 12/02/2022 3:40 PM CDT Inhaled Oxygen Concentration - - Weight 61.7 kg (136 lb) 06/17/2024 11:54 AM SUPERVISOR SHUTTLE PREPARATION Height 162.6 cm (5' 4 ) 06/17/2024 11:54 AM SUPERVISOR SHUTTLE PREPARATION Body Mass Index 23.34 06/17/2024 11:54 AM SUPERVISOR SHUTTLE PREPARATION Plan of Treatment Health Maintenance Due Date Last Done Comments DTaP/Tdap/Td Vaccine (1 - Tdap) 10/24/1946 Hepatitis B Screening 1953 Pneumococcal vaccine 65+ (1 of 1 - PCV) 1986 Zoster Vaccine (1 of 2) 1986 Well Visit 65+ 2001 Fall Risk Assessment 12/03/2023 12/02/2022 Influenza Vaccine (#1) 2024 06/14/2017 Depression Screening 12/07/2024 12/08/2023 Insurance AETNA MEDICARE GOLD IDPA [facility] AETNA MEDICARE GOLD [facility] IDSD AETNA MEDICARE GOLD Care Teams Social Work Assistant Relationship Specialty Start Date End Date Luis Almeida DO PCP - General Internal Medicine 01/06/21
--- OUTSIDE RECORDS SUMMARY | 2024-07-19 05:46 | XMS_ITS | Encounter Summary ---
Author Organization [facility] Address [address] [place] [address] Phone Care Team Providers Care Confectionery Cooker Name Role Phone Luis Almeida DO Primary Care Provider +1- [phone] Encounter Details Date Type Department Care Team (Late st Contact Info) Description 07/18/2024 Telephone [facility] - [facility] ENT [address] [facility] Advanced [facility] 11th [place] [address] [place] [phone] Laine Aguilera MS Social History Tobacco Use Types Packs/Day Years [...] on file Legal Sex Female 8:35 PM CULINARY CHEF Gender Identity Female 01/25/2022 6:38 PM CDT Sexual Orientation Not on file documented as of this encounter Miscellaneous Notes * Telephone Encounter - Roney King - 07/18/2024 9:00 AM CST Spoke to patient daughter - she may call back again later today - ask to be added to [employer] chat H&L (see IB for dx details) NARY CHEF documented in this encounter Plan of Treatment Not on file documented as of this encounter Visit Diagnoses Not on filedocumented in this encounter Care Teams Confectionery Cooker Relationship Specialty Start Date End Date Luis Almeida DO PCP - General Internal Medicine 01/06/21 documented as of this encounter
--- NOTE | 2024-07-19 05:50 | PC.NURSE ---
Called patient's daughter for a ride back to [facility].
[2024-07-19 06:53] VITALS: BP 114/68; PULSE 57; RESP 15; O2SAT 97
== END 2024-07-19 06:54 ==
LOC: ANHED 05:45
PROVIDERS: Emergency Provider Emergency Medicine; PCP Nurse Practitioner
DX: R04.0 Epistaxis (principal); I48.91 Unspecified atrial fibrillation; I10 Essential (primary) hypertension; G20.A1 Parkinson's disease without dyskinesia, without mention of fluctuations; F03.90 Unspecified dementia, unspecified severity, without behavioral disturbance, psychotic disturbance, mood disturbance, and anxiety; Z96.659 Presence of unspecified artificial knee joint; Z85.840 Personal history of malignant neoplasm of eye; Z85.828 Personal history of other malignant neoplasm of skin; Z96.1 Presence of intraocular lens; Z98.42 Cataract extraction status, left eye; Z98.41 Cataract extraction status, right eye; Z90.710 Acquired absence of both cervix and uterus; Z79.01 Long term (current) use of anticoagulants; Z79.899 Other long term (current) drug therapy
CPT/HCPCS: 30901; 99282; J2004

== ENCOUNTER 2024-07-20 05:16 | Emergency (ER) | payer MEDICARE, MEDICAID, SELFPAY ==
[2024-07-20 05:14] VITALS: BP 150/71; PULSE 72; RESP 14; TEMP 36.6; O2SAT 100
--- NOTE | 2024-07-20 05:28 | ED_ITS ---
HPI - General Adult General Chief complaint: Epistaxis Stated complaint: epitaxis Time Seen by Provider: 07/20/24 05:27 History of Present Illness HPI narrative: Patient a 8-year-old female who presents emergency department with chief complaint of bleeding from right nostril. Patient has history of AFib and is on Eliquis but this has been held by her computer mechanic patient was seen in the emergency department yesterday morning and had a 7.5 rapid rhino put in yesterday replacing a 5.5 rapid rhino the patient this morning started having bleeding and EMS was called. Related Data Home Medications ?Medication ?Instructions ?Recorded ?Confirmed ?Last Taken ?Type carbidopa 25 mg-levodopa 100 mg 1 tablet PO TID 09/08/21 07/11/24 06/28/24 History tablet carbidopa ER 50 mg-levodopa 200 mg 2 tablet PO QHS 09/08/21 07/11/24 06/27/24 History tablet,extended release mirtazapine 15 mg tablet 15 mg PO QHS 06/21/22 07/11/24 06/27/24 History gabapentin 100 mg capsule 100 mg PO BID 07/11/24 07/11/24 Unknown History Allergies Allergy/AdvReac Type Severity Reaction Status Date / Time Sulfa (Sulfonamide Allergy Unknown Hives Verified 07/19/24 04:45 Antibiotics) Review of Systems Review of Systems: A 10 system review of systems was completed on the patient and is negative except for what is stated in the HPI. Nursing and ancillary documentation was reviewed. 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 Essential hypertension Thalassemia Hypertension Parkinson disease Surgical History Surgical History History of tonsillectomy and adenoidectomy Status post cataract extraction of both eyes with insertion of intraocular lens H/O colectomy (1995) Right hemicolectomy with end-to-end anastomosis Due to colon cancer, most recent colonoscopy 2010 Knee joint replacement status H/O: hysterectomy 1969' Hx of appendectomy Family History Family History Father Brain tumor Mother Breast cancer Grandparent Diabetes mellitus Son , at age 62 Alcoholism Dilated cardiomyopathy Social History Social History Social History: The patient lives in [facility]. She had a daughter and a son. Her daughter is still living. She is a lifelong nonsmoker and does not drink alcohol. She ambulates with a Rollator. Code status: Full code Healthcare power of assistant county attorney: Tara Lock (daughter) Smoking status: Never smoker Alcohol intake: never Substance use: never Do You Feel Safe in your Home?: Yes Lack of Transportation: No Lack of Food: Never True Current Housing: I Have Housing Concerned About Future Housing: No Difficulty Paying Gas/Electric Bills: No Difficulty Paying for Meds: No Currently Unemployed: No Education: Decline to Answer Difficulty w/ Childcare or Family Care: No Spiritual care concerns: No Exam Narrative: GENERAL: Well-appearing, well-nourished, and in no acute distress. HEAD: Normocephalic, atraumatic. EYES: PERRLA and EOMI. ENT: Nares clear, no rhinorrhea active bleeding from the right nostril with packing in place. Mucous membranes moist. NECK: Supple. CHEST: Clear to auscultation. No respiratory distress. HEART: Regular rate and rhythm. No murmur heard. Normal peripheral pulses. ABDOMEN: Soft, nontender, nondistended, normal active bowel sounds. EXTREMITIES: Normal range of motion. No edema. SKIN: Warm, dry, no rash. NEURO: No focal deficits. Alert and oriented x3. PSYCH: Normal mood and affect. Course Vital Signs Vital signs: Vital Signs Temperature 36.6 C 07/20/24 05:14 Pulse Rate 72 07/20/24 05:14 Respiratory Rate 14 07/20/24 05:14 Blood Pressure 150/71 H 07/20/24 05:14 Pulse Oximetry 100 07/20/24 05:14 Oxygen Delivery Room Air 07/20/24 05:14 Temperature 36.6 C 07/20/24 05:14 Pulse Rate 72 07/20/24 05:14 Respiratory Rate 14 07/20/24 05:14 Blood Pressure 150/71 H 07/20/24 05:14 Pulse Oximetry 100 07/20/24 05:14 Oxygen Delivery Room Air 07/20/24 05:14 Procedures Epistaxis Control right: Epistaxis Control Date: 07/20/24 Epistaxis Control Time: 05:29 Time Out Performed: Yes Nose Prepped With: lidocaine Direct Inspection: yes and unable to visualize Clots Removed by: blowing nose Cautery Used: none Device Inserted: hemostatic balloon Patient Tolerated Procedure: well Medical Decision Making MDM Narrative Medical decision making narrative: The patient's packing was removed and the right nostril was repacked Vital Signs Vital Signs: Vital Signs Temperature 36.6 C 07/20/24 05:14 Pulse Rate 72 07/20/24 05:14 Respiratory Rate 14 07/20/24 05:14 Blood Pressure 150/71 H 07/20/24 05:14 Pulse Oximetry 100 07/20/24 05:14 Oxygen Delivery Room Air 07/20/24 05:14 Temperature 36.6 C 07/20/24 05:14 Pulse Rate 72 07/20/24 05:14 Respiratory Rate 14 07/20/24 05:14 Blood Pressure 150/71 H 07/20/24 05:14 Pulse Oximetry 100 07/20/24 05:14 Oxygen Delivery Room Air 07/20/24 05:14 Discharge Plan Discharge Clinical Impression: Epistaxis Patient Disposition: [facility] Retirement/Asst Living Condition: Stable Instructions: Antibiotic Form, Nosebleed (ED) Patient Language: Citizen Of [place] Prescriptions: No Action mirtazapine 15 mg tablet 15 mg PO QHS gabapentin 100 mg capsule 100 mg PO BID amiodarone [Pacerone] 200 mg tablet 200 mg PO DAILY Qty: 30 5RF furosemide 40 mg tablet 40 mg PO BID Qty: 60 5RF carbidopa-levodopa 50-200 mg tablet extended release 2 tablet PO QHS carbidopa-levodopa 25-100 mg tablet 1 tablet PO TID Rx Instructions: 3 tabs at 8:00 AM, 12:00 PM, and 6:00 PM. amoxicillin-pot clavulanate 875-125 mg tablet 1 tablet PO Q12H 3 Days Qty: 6 0RF acetaminophen 500 mg tablet 500 mg PO Q8H PRN (Reason: pain) Qty: 90 2RF Follow-up/Referrals: Lemuel Summers MD [Physician] - UNKNOWN,DOCTOR [Primary Care Provider] -
--- OUTSIDE RECORDS SUMMARY | 2024-07-20 05:39 | XMS_ITS | Clinical Summary ---
Author Organization [facility] Address [address] [place] [address] Care Team Providers Care Fiberglass Product Tester Name Role Phone Luis Almeida DO Primary Care Provider +1- [phone] Allergies Active Allergy Reactions Criticality Noted Date [...] tumor 09/14/22 OS and was sent to [facility] The path was read as [...] 04/03/2018 Assessment & Plan (06/17/2024 12:44 PM PIN PUSHER): Mrs. Mckoy was doing well overall. She [...] hydrated Assessment & Plan (06/09/2023 1:32 PM PIN PUSHER): Mrs. Mckoy presented for a follow up. [...] is scheduled to follow up with her barrel rifler broach today post surgical removal of melanoma. Recommendations [...] She was drinking boost. She lived at [facility] in assisted living and her daughter [...] Our office will fax OT/PT orders to [facility] ATTN Alba at [phone] A message will be sent to the [...] management Assessment & Plan (04/28/2021 2:22 PM PIN PUSHER): Ms. Haven Mckoy is a 85 y.o. [...] encounter. Assessment & Plan (06/17/2020 11:03 AM PIN PUSHER): Ms. Haven Mckoy is a 84 y.o. female, who presents for follow-up for Parkinson's disease (PD), complicated by low back pain. 1. PD. She is about the same since the last visit. She continues to have camp cook stiffness and increase in nighttime carbidopa-levodopa CR has not helped. We discussed gabapentin and she was willing to try. - Start gabapentin 100 mg with titration to 3 capsules at bedtime. Titration schedule was given through [employer]. Additional doses changes may be needed. - [...] effects were discussed during the encounter, including camp cook sedation with gabapentin. Assessment & Plan (12/16/2019 [...] 2 tablets at bedtime to help with camp cook off. - Continue carbidopa-levodopa 25-100 mg at the current dose. - Establish a regular exercise routine. - She should discuss with PCP about the use of BP medication and the vertigo. Assessment & Plan (03/21/2019 4:34 PM PIN PUSHER): Ms. Haven Mckoy is a 83 y.o. [...] Department Care Team Description 07/18/2024 Telephone [facility] Advanced Medicine ([facility]) - [facility] ENT [address] [facility] 11th [place] [address] [place] [address] Laine Aguilera, 06/27/2024 Telephone [facility] Ophthalmology [address] [place] [address] 1st [place] [phone] Reyna Lewis COA 06/17/2024 12:00 PM PIN PUSHER Office Visit [facility] Movement Disorders [address] [facility] 7th [place] [address] Elizabeth Barriga, EDITH Parkinson disease (HCC) from Last 3 Months Immunizations Immunization Administration Dates Next Due Influenza, Trivalent, High D ose, Split, Preservative Free, Intramuscular 06/14/2017 Surgical History Surgery Date Site/Laterality Comments DE TOTAL ABDOMINAL HYSTERECT W/WO RMVL TUBE OVARY Hysterectomy - (Added by TW Conv) DE COLECTOMY PARTIAL W/ANASTOMOSIS Partial Colectomy - (Added [...] on file Legal Sex Female 8:35 PM PIN PUSHER Gender Identity Female 01/25/2022 6:38 PM CDT Sexual Orientation Not on file Obstetrics History Last Filed Vital Signs Vital Sign Reading Time Taken Comments Blood Pressure 130/80 06/17/2024 11:54 AM PIN PUSHER Pulse 66 06/17/2024 11:54 AM PIN PUSHER Temperature 36.1 C (97 F) 12/02/2022 10:25 AM CDT Respiratory Rate 17 12/02/2022 3:40 PM CDT Oxygen Saturation 95% 12/02/2022 3:40 PM CDT Inhaled Oxygen Concentration - - Weight 61.7 kg (136 lb) 06/17/2024 11:54 AM PIN PUSHER Height 162.6 cm (5' 4 ) 06/17/2024 11:54 AM PIN PUSHER Body Mass Index 23.34 06/17/2024 11:54 AM PIN PUSHER Plan of Treatment Health Maintenance Due Date Last Done Comments DTaP/Tdap/Td Vaccine (1 - Tdap) 10/24/1946 Hepatitis B Screening 1953 Pneumococcal vaccine 65+ (1 of 1 - PCV) 1986 Zoster Vaccine (1 of 2) 1986 Well Visit 65+ 2001 Fall Risk Assessment 12/03/2023 12/02/2022 Influenza Vaccine (#1) 2024 06/14/2017 Depression Screening 12/07/2024 12/08/2023 Insurance AETNA MEDICARE GOLD IDPA [facility] AETNA MEDICARE GOLD [facility]NC AETNA MEDICARE GOLD Care Teams Fiberglass Product Tester Relationship Specialty Start Date End Date Luis Almeida DO PCP - General Internal Medicine 01/06/21
--- OUTSIDE RECORDS SUMMARY | 2024-07-20 05:39 | XMS_ITS | Referral Summary ---
Author Organization [facility] al Address [address] [place] [address] Care Team Providers Care Manager Action Name Role Phone Luis Almeida DO Primary Care Provider +1- [phone] Encounters Date Type Department Care Team Description 07/18/2024 Telephone [facility] - [facility] ENT [address] [facility] 11th [place] [address] [place] [phone] Laine Aguilera, MS 06/27/2024 Telephone [facility] Ophthalmology [address] [place] [address] 1st [place] [address] Reyna Lewis COA 06/17/2024 12:00 PM EXECUTIVE RECRUITER Office Visit [facility] Movement Disorders [address] [facility] 7th [place] [address] Elizabeth Barriga NP Parkinson disease [...] OS and was sent to [facility] The path was read as conj [...] 04/03/2018 Assessment & Plan (06/17/2024 12:44 PM EXECUTIVE RECRUITER): Mrs. Mckoy was doing well overall. She [...] hydrated Assessment & Plan (06/09/2023 1:32 PM EXECUTIVE RECRUITER): Mrs. Mckoy presented for a follow up. [...] is scheduled to follow up with her gum scoring machine operator today post surgical removal of melanoma. [...] She was drinking boost. She lived at [facility] in assisted living and her daughter [...] Our office will fax OT/PT orders to [facility] ATTN Alba at [phone] A message will be sent to the [...] management Assessment & Plan (04/28/2021 2:22 PM EXECUTIVE RECRUITER): Ms. Haven Mckoy is a 85 y.o. [...] encounter. Assessment & Plan (06/17/2020 11:03 AM EXECUTIVE RECRUITER): Ms. Haven Mckoy is a 84 y.o. female, who presents for follow-up for Parkinson's disease (PD), complicated by low back pain. 1. PD. She is about the same since the last visit. She continues to have primary mill roller stiffness and increase in nighttime carbidopa-levodopa CR has not helped. We discussed gabapentin and she was willing to try. - Start gabapentin 100 mg with titration to 3 capsules at bedtime. Titration schedule was given through [facility]. Additional doses changes may be needed. - [...] effects were discussed during the encounter, including primary mill roller sedation with gabapentin. Assessment & Plan (12/16/2019 [...] 2 tablets at bedtime to help with primary mill roller off. - Continue carbidopa-levodopa 25-100 mg at the current dose. - Establish a regular exercise routine. - She should discuss with PCP about the use of BP medication and the vertigo. Assessment & Plan (03/21/2019 4:34 PM EXECUTIVE RECRUITER): Ms. Haven Mckoy is a 83 y.o. [...] on file Legal Sex Female 8:35 PM EXECUTIVE RECRUITER Gender Identity Female 01/25/2022 6:38 PM CDT Sexual Orientation Not on file Last Filed Vital Signs Vital Sign Reading Time Taken Comments Blood Pressure 130/80 06/17/2024 11:54 AM EXECUTIVE RECRUITER Pulse 66 06/17/2024 11:54 AM EXECUTIVE RECRUITER Temperature 36.1 C (97 F) 12/02/2022 10:25 AM CDT Respiratory Rate 17 12/02/2022 3:40 PM CDT Oxygen Saturation 95% 12/02/2022 3:40 PM CDT Inhaled Oxygen Concentration - - Weight 61.7 kg (136 lb) 06/17/2024 11:54 AM EXECUTIVE RECRUITER Height 162.6 cm (5' 4 ) 06/17/2024 11:54 AM EXECUTIVE RECRUITER Body Mass Index 23.34 06/17/2024 11:54 AM EXECUTIVE RECRUITER Plan of Treatment Not on file Insurance AETNA MEDICARE GOLD [facility] IDPA AETNA MEDICARE GOLD AETNA MEDICARE GOLD Care Teams Manager Action Relationship Specialty Start Date End Date Luis Almeida DO PCP - General Internal Medicine 01/06/21
[2024-07-20 07:21] VITALS: BP 106/48; PULSE 56; RESP 18; O2SAT 97
== END 2024-07-20 07:24 ==
PROVIDERS: Emergency Provider Emergency Medicine
DX: R04.0 Epistaxis (principal); I48.91 Unspecified atrial fibrillation; Z79.01 Long term (current) use of anticoagulants; Z85.840 Personal history of malignant neoplasm of eye; I10 Essential (primary) hypertension; G20.A1 Parkinson's disease without dyskinesia, without mention of fluctuations; F03.90 Unspecified dementia, unspecified severity, without behavioral disturbance, psychotic disturbance, mood disturbance, and anxiety
CPT/HCPCS: 30901; 99282; J2004

== ENCOUNTER 2024-07-21 20:14 | Emergency (ER) | payer MEDICARE, MEDICAID, SELFPAY ==
[2024-07-21 20:15] VITALS: BP 116/65; PULSE 66; RESP 14; TEMP 37; O2SAT 99
--- NOTE | 2024-07-21 20:17 | ED.EPISTAXIS ---
HPI - Epistaxis General Chief complaint: Epistaxis <Thomas Brennan PA-C - Last Filed: 07/21/24 23:33> Stated complaint: EPISTAXIS <Thomas Brennan PA-C - Last Filed: 07/21/24 23:33> Time Seen by Provider: 07/21/24 20:16 <Thomas Brennan PA-C - Last Filed: 07/21/24 23:33> Source: patient and family <Thomas Brennan PA-C - Last Filed: 07/21/24 23:33> Mode of arrival: EMS <JOLEEN Lozano Last Filed: 07/21/24 23:33> Limitations: no limitations <Thomas Brennan PA-C - Last Filed: 07/21/24 23:33> History of Present Illness HPI Narrative: This is an 88-year-old female with PMH of thalassemia, Parkinson, dementia, HTN who presents to the ED the EMS from assisted living for chief complaint of nose bleed. This is the 4th visit in 5 days for this same complaint. She arrives with a rhino rocket in the right air. History from patient is limited due to dementia. Family arrives bedside and is able to help supplement history. They state that they were called due to the patient possibly having another nose bleed at the assisted living today. They state that this all started after recently starting Eliquis for AFib in the past couple of weeks. She has held Eliquis since 07/17/2024 after being seen here initially for this issue. She has ENT follow-up information and appointment set up. <Thomas Brennan PA-C - Last Filed: 07/21/24 23:33> Related Data Home medications: Home Medications ?Medication ?Instructions ?Recorded ?Confirmed ?Last Taken ?Type carbidopa 25 mg-levodopa 100 mg 1 tablet PO TID 09/08/21 07/11/24 06/28/24 History tablet carbidopa ER 50 mg-levodopa 200 mg 2 tablet PO QHS 09/08/21 07/11/24 06/27/24 History tablet,extended release mirtazapine 15 mg tablet 15 mg PO QHS 02/07/23 02/27/25 02/13/25 History gabapentin 100 mg capsule 100 mg PO BID 07/11/24 07/11/24 Unknown History <Thomas Brennan PA-C - Last Filed: 07/21/24 23:33> Allergies/adverse reactions: Allergies Allergy/AdvReac Type Severity Reaction Status Date / Time Sulfa (Sulfonamide Allergy Unknown Hives Verified 07/19/24 04:45 Antibiotics) <Thomas Brennan PA-C - Last Filed: 07/21/24 23:33> Review of Systems Review of Systems: All systems as dictated in HPI <Thomas Brennan PA-C - Last Filed: 07/21/24 23:33> [facility] Past Medical History Medical History: Medical History Melanoma of eye Left eye with surgical removal 2022 Dementia Progressive memory changes Since early 2023 Hearing Loss 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 Essential hypertension Thalassemia Hypertension Parkinson disease <Thomas Brennan PA-C - Last Filed: 07/21/24 23:33> Surgical History Surgical History: Surgical History History of tonsillectomy and adenoidectomy Status post cataract extraction of both eyes with insertion of intraocular lens H/O colectomy (1995) Right hemicolectomy with end-to-end anastomosis Due to colon cancer, most recent colonoscopy 2010 Knee joint replacement status H/O: hysterectomy Hx of appendectomy <Thomas Brennan PA-C - Last Filed: 07/21/24 23:33> Family History Family History: Family History Father Brain tumor Mother Breast cancer Grandparent Diabetes mellitus Son , at age 62 Alcoholism Dilated cardiomyopathy <Thomas Brennan PA-C - Last Filed: 07/21/24 23:33> Social History Social History: Social History Social History: The patient lives in [facility]. She had a daughter and a son. Her daughter is still living. She is a lifelong nonsmoker and does not drink alcohol. She ambulates with a Rollator. Code status: Full code Healthcare power of master merchandiser: Tara Lock (daughter) Smoking status: Never smoker Alcohol intake: never Substance use: never Do You Feel Safe in your Home?: Yes Lack of Transportation: No Lack of Food: Never True Current Housing: I Have Housing Concerned About Future Housing: No Difficulty Paying Gas/Electric Bills: No Difficulty Paying for Meds: No Currently Unemployed: No Education: Decline to Answer Difficulty w/ Childcare or Family Care: No Spiritual care concerns: No <Thomas Brennan PA-C - Last Filed: 07/21/24 23:33> Exam Narrative: GENERAL: Well-appearing, well-nourished, and in no acute distress. HEAD: Normocephalic, atraumatic. EYES: PERRLA and EOMI. ENT: Nasal packing tampon in good position in the right Martin. There is no active bleeding. No blood is visualized in the posterior pharynx. The surrounding area of skin to the nose is normal. No purulent drainage or malodor. . Mucous membranes moist. Oropharynx without tonsillar hypertrophy exudate or other lesions. NECK: Supple. No adenopathy or masses. CHEST: No respiratory distress. Clear to auscultation. No wheezes rales or rhonchi HEART: Regular rate and rhythm. No murmur heard. Normal peripheral pulses. ABDOMEN: Soft, nontender, nondistended, normal active bowel sounds. MSK: Normal range of motion. No edema. SKIN: Warm, dry, no rash. NEURO: Alert and oriented x4. No focal deficits. PSYCH: Normal mood and affect. <Thomas Brennan PA-C - Last Filed: 07/21/24 23:33> Course BIOMEDICAL FIELD SERVICE ENGINEER/PA Physician Supervision I agree with midlevel documentation; I performed the medical decision making component of this evaluation. <Susannah Al MD - Last Filed: 07/21/24 23:50> Vital Signs Vital signs: Vital Signs Temperature 98.6 F 07/21/24 20:15 Pulse Rate 66 07/21/24 20:15 Respiratory Rate 14 07/21/24 20:15 Blood Pressure 116/65 07/21/24 20:15 Pulse Oximetry 99 07/21/24 20:15 Oxygen Delivery Room Air 07/21/24 20:15 Temperature 98.6 F 07/21/24 20:15 Pulse Rate 66 07/21/24 20:15 Respiratory Rate 14 07/21/24 20:15 Blood Pressure 116/65 07/21/24 20:15 Pulse Oximetry 99 07/21/24 20:15 Oxygen Delivery Room Air 07/21/24 20:15 <Thomas Brennan PA-C - Last Filed: 07/21/24 23:33> Vital Signs Temperature 98.6 F 07/21/24 20:15 Pulse Rate 66 07/21/24 20:15 Respiratory Rate 14 07/21/24 20:15 Blood Pressure 116/65 07/21/24 20:15 Pulse Oximetry 99 07/21/24 20:15 Oxygen Delivery Room Air 07/21/24 20:15 Temperature 98.6 F 07/21/24 20:15 Pulse Rate 66 07/21/24 20:15 Respiratory Rate 14 07/21/24 20:15 Blood Pressure 116/65 07/21/24 20:15 Pulse Oximetry 99 07/21/24 20:15 Oxygen Delivery Room Air 07/21/24 20:15 <Susannah Al MD - Last Filed: 07/21/24 23:50> MDM - Epistaxis MDM Narrative Medical decision making narrative: This is a this 88-year-old female who presents to the ED for epistaxis. Vitals are normal. She has rhino rocket in place from previous visit this week. She has held Eliquis for the past 4 days due to initial presentation of nose bleed. On exam I am not detecting any active bleeding. There is no dried blood or active blood in the posterior pharynx. She is resting comfortably. She was observed here for an hour and did not have any bleeding. I discussed these findings with patient's family who arrived bedside. They feel reassured by this and she will have ENT follow-up in the coming days. I suspect that she will not have any more acute bleed since she has held Eliquis for the past 4 days. She is stable for discharge at this time for definitive management with ENT this week. Recommended to continue taking antibiotics as prescribed. Patient family are understanding and agreeable with plan for discharge at this time. <Thomas Brennan PA-C - Last Filed: 07/21/24 23:33> Discharge Plan Discharge Clinical Impression: Encounter for medical screening examination <Thomas Brennan PA-C - Last Filed: 07/21/24 23:33> Patient Disposition: Home, Self-Care <Thomas Brennan PA-C - Last Filed: 07/21/24 23:33> Condition: Stable <Thomas Brennan PA-C - Last Filed: 07/21/24 23:33> Instructions: Antibiotic Form <JOLEEN Lozano Last Filed: 07/21/24 23:33> Additional Instructions: Exam today is very reassuring. There is no active bleed. Please continue to follow-up very closely with ENT on this issue hand continue to hold Eliquis. If you have any new or worsening symptoms please return to the ER for further evaluation. <JOLEEN Lozano Last Filed: 07/21/24 23:33> Patient Language: Gibraltarian <JOLEEN Lozano Last Filed: 07/21/24 23:33> Prescriptions: No Action mirtazapine 15 mg tablet 15 mg PO QHS gabapentin 100 mg capsule 100 mg PO BID amiodarone [Pacerone] 200 mg tablet 200 mg PO DAILY Qty: 30 5RF furosemide 40 mg tablet 40 mg PO BID Qty: 60 5RF carbidopa-levodopa 50-200 mg tablet extended release 2 tablet PO QHS carbidopa-levodopa 25-100 mg tablet 1 tablet PO TID Rx Instructions: 3 tabs at 8:00 AM, 12:00 PM, and 6:00 PM. amoxicillin-pot clavulanate 875-125 mg tablet 1 tablet PO Q12H 3 Days Qty: 6 0RF acetaminophen 500 mg tablet 500 mg PO Q8H PRN (Reason: pain) Qty: 90 2RF <JOLEEN Lozano Last Filed: 07/21/24 23:33> Follow-up/Referrals: UNKNOWN,DOCTOR [Non-Staff] - <JOLEEN Lozaon Last Filed: 07/21/24 23:33> Time of Disposition: 21:18 <JOLEEN Lozano Last Filed: 07/21/24 23:33> 21:18 <Susannah Al MD - Last Filed: 07/21/24 23:50>
--- OUTSIDE RECORDS SUMMARY | 2024-07-21 20:43 | XMS_ITS | Clinical Summary ---
Author Organization [facility] Address [address] [place] [address] Care Team Providers Care Lead Operator Name Role Phone Luis Almeida DO Primary Care Provider [phone]- [phone] Allergies Active Allergy Reactions Criticality Noted Date [...] OS and was sent to [facility] The path was read as conj [...] 04/03/2018 Assessment & Plan (06/17/2024 12:44 PM DIVIDER OPERATOR): Mrs. Mckoy was doing well overall. [...] hydrated Assessment & Plan (06/09/2023 1:32 PM DIVIDER OPERATOR): Mrs. Mckoy presented for a follow [...] is scheduled to follow up with her indirect sales exec today post surgical removal of melanoma. Recommendations [...] She was drinking boost. She lived at [facility] in assisted living and her daughter [...] Our office will fax OT/PT orders to [facility] ATTN Alba at [phone] A message will be sent to the [...] management Assessment & Plan (04/28/2021 2:22 PM DIVIDER OPERATOR): Ms. Haven Mckoy is a 85 [...] encounter. Assessment & Plan (06/17/2020 11:03 AM DIVIDER OPERATOR): Ms. Haven Mckoy is a 84 y.o. female, who presents for follow-up for Parkinson's disease (PD), complicated by low back pain. 1. PD. She is about the same since the last visit. She continues to have early childhood associate teacher stiffness and increase in nighttime carbidopa-levodopa CR has not helped. We discussed gabapentin and she was willing to try. - Start gabapentin 100 mg with titration to 3 capsules at bedtime. Titration schedule was given through [employer]. Additional doses changes may be needed. - [...] effects were discussed during the encounter, including early childhood associate teacher sedation with gabapentin. Assessment & Plan (12/16/2019 [...] 2 tablets at bedtime to help with early childhood associate teacher off. - Continue carbidopa-levodopa 25-100 mg at the current dose. - Establish a regular exercise routine. - She should discuss with PCP about the use of BP medication and the vertigo. Assessment & Plan (03/21/2019 4:34 PM DIVIDER OPERATOR): Ms. Haven Mckoy is a 83 [...] Type Department Care Team Description 07/18/2024 Telephone [facility] Advanced Medicine ([facility]) - [facility] ENT [address] 11th [place] [address] [place] [id number] Laine Aguilera, 06/27/2024 Telephone [facility] Ophthalmology [address] [place] [address] 1st [place] [phone] Reyna Lewis COA 06/17/2024 12:00 PM DIVIDER OPERATOR Office Visit [facility] Movement Disorders [address] [facility] 7th [place] [address] Elizabeth Barriga, EDITH Parkinson disease (HCC) from Last 3 Months Immunizations Immunization Administration Dates Next Due Influenza, Trivalent, High D ose, Split, Preservative Free, Intramuscular 06/14/2017 Surgical History Surgery Date Site/Laterality Comments MT TOTAL ABDOMINAL HYSTERECT W/WO RMVL TUBE OVARY Hysterectomy - (Added by TW Conv) MT COLECTOMY PARTIAL W/ANASTOMOSIS Partial Colectomy - (Added [...] on file Legal Sex Female 8:35 PM DIVIDER OPERATOR Gender Identity Female 01/25/2022 6:38 PM CDT Sexual Orientation Not on file Obstetrics History Last Filed Vital Signs Vital Sign Reading Time Taken Comments Blood Pressure 130/80 06/17/2024 11:54 AM DIVIDER OPERATOR Pulse 66 06/17/2024 11:54 AM DIVIDER OPERATOR Temperature 36.1 C (97 F) 12/02/2022 10:25 AM CDT Respiratory Rate 17 12/02/2022 3:40 PM CDT Oxygen Saturation 95% 12/02/2022 3:40 PM CDT Inhaled Oxygen Concentration - - Weight 61.7 kg (136 lb) 06/17/2024 11:54 AM DIVIDER OPERATOR Height 162.6 cm (5' 4 ) 06/17/2024 11:54 AM DIVIDER OPERATOR Body Mass Index 23.34 06/17/2024 11:54 AM DIVIDER OPERATOR Plan of Treatment Health Maintenance Due Date Last Done Comments DTaP/Tdap/Td Vaccine (1 - Tdap) 10/24/1946 Hepatitis B Screening 1953 Pneumococcal vaccine 65+ (1 of 1 - PCV) 1986 Zoster Vaccine (1 of 2) 1986 Well Visit 65+ 2001 Fall Risk Assessment 12/03/2023 12/02/2022 Influenza Vaccine (#1) 2024 06/14/2017 Depression Screening 12/07/2024 12/08/2023 Insurance AETNA MEDICARE GOLD IDPA [facility] AETNA MEDICARE GOLD [facility] IDID AETNA MEDICARE GOLD Care Teams Lead Operator Relationship Specialty Start Date End Date Luis Almeida DO PCP - General Internal Medicine 01/06/21
--- OUTSIDE RECORDS SUMMARY | 2024-07-21 20:43 | XMS_ITS | Referral Summary ---
Author Organization [facility] Address [address] [place] [address] Care Team Providers Care Seo Executive Name Role Phone Luis Almeida DO Primary Care Provider [phone]- [phone] Encounters Date Type Department Care Team Description 07/18/2024 Telephone [facility] ([facility] - [facility] ENT [address]th [place] [address] [place] [phone] Laine Aguilera, MS 06/27/2024 Telephone [facility] Ophthalmology [address] [place] [address] 1st [place] [address] Reyna Lewis COA 06/17/2024 12:00 PM RAW CHEESE WORKER Office Visit [facility] Movement Disorders [address] 7th [place] [address] Elizabeth Barriga, EDITH Parkinson disease [...] 04/03/2018 Assessment & Plan (06/17/2024 12:44 PM RAW CHEESE WORKER): Mrs. Mckoy was doing well overall. She [...] hydrated Assessment & Plan (06/09/2023 1:32 PM RAW CHEESE WORKER): Mrs. Mckoy presented for a follow up. [...] is scheduled to follow up with her biztalk architect today post surgical removal of melanoma. Recommendations [...] She was drinking boost. She lived at [facility] in assisted living and her daughter [...] Our office will fax OT/PT orders to [facility] ATTN Alba at [phone] A message will be sent to the [...] management Assessment & Plan (04/28/2021 2:22 PM RAW CHEESE WORKER): Ms. Haven Mckoy is a 85 y.o. [...] encounter. Assessment & Plan (06/17/2020 11:03 AM RAW CHEESE WORKER): Ms. Haven Mckoy is a 84 y.o. female, who presents for follow-up for Parkinson's disease (PD), complicated by low back pain. 1. PD. She is about the same since the last visit. She continues to have ophthalmic medical assistant stiffness and increase in nighttime carbidopa-levodopa CR has not helped. We discussed gabapentin and she was willing to try. - Start gabapentin 100 mg with titration to 3 capsules at bedtime. Titration schedule was given through [email or web address]. Additional doses changes may be needed. - [...] effects were discussed during the encounter, including ophthalmic medical assistant sedation with gabapentin. Assessment & Plan [...] 2 tablets at bedtime to help with ophthalmic medical assistant off. - Continue carbidopa-levodopa 25-100 mg at the current dose. - Establish a regular exercise routine. - She should discuss with PCP about the use of BP medication and the vertigo. Assessment & Plan (03/21/2019 4:34 PM RAW CHEESE WORKER): Ms. Haven Mckoy is a 83 y.o. [...] on file Legal Sex Female 8:35 PM RAW CHEESE WORKER Gender Identity Female 01/25/2022 6:38 PM CDT Sexual Orientation Not on file Last Filed Vital Signs Vital Sign Reading Time Taken Comments Blood Pressure 130/80 06/17/2024 11:54 AM RAW CHEESE WORKER Pulse 66 06/17/2024 11:54 AM RAW CHEESE WORKER Temperature 36.1 C (97 F) 12/02/2022 10:25 AM CDT Respiratory Rate 17 12/02/2022 3:40 PM CDT Oxygen Saturation 95% 12/02/2022 3:40 PM CDT Inhaled Oxygen Concentration - - Weight 61.7 kg (136 lb) 06/17/2024 11:54 AM RAW CHEESE WORKER Height 162.6 cm (5' 4 ) 06/17/2024 11:54 AM RAW CHEESE WORKER Body Mass Index 23.34 06/17/2024 11:54 AM RAW CHEESE WORKER Plan of Treatment Not on file Insurance AETNA MEDICARE GOLD [place] AETNA MEDIC[facility] GOLD [facility] AETNA MEDIC[facility] GOLD Care Teams Seo Executive Relationship Specialty Start Date End Date Luis Almeida DO PCP - General Internal Medicine 01/06/21
[2024-07-21] MEDS: HYDROcodone/acetaminophen (*CRX) 5-325 MG TABLET 1 TAB PO (20:54)
[2024-07-21] MEDS: ACETAMINOPHEN 325 MG TABLET 650 MG PO (20:54)
== END 2024-07-21 22:33 ==
PROVIDERS: Emergency Provider Physician Assistant; PCP Internal Medicine
DX: R04.0 Epistaxis (principal); F03.90 Unspecified dementia, unspecified severity, without behavioral disturbance, psychotic disturbance, mood disturbance, and anxiety; I10 Essential (primary) hypertension; G20.C Parkinsonism, unspecified; I48.91 Unspecified atrial fibrillation; Z79.01 Long term (current) use of anticoagulants; Z85.840 Personal history of malignant neoplasm of eye; Z85.828 Personal history of other malignant neoplasm of skin; Z90.49 Acquired absence of other specified parts of digestive tract; Z90.710 Acquired absence of both cervix and uterus; Z96.1 Presence of intraocular lens; Z98.42 Cataract extraction status, left eye; Z98.41 Cataract extraction status, right eye
CPT/HCPCS: 99283; A9270

== ENCOUNTER 2024-07-24 12:07 | Inpatient (IN) | payer MEDICARE, MEDICAID, SELFPAY ==
--- NOTE | ~2024-07-24 | CT_ITS ---
EXAMINATION: CT facial bones w con DATE: 07/24/2024 14:55 INDICATION: Left face pain. TECHNIQUE: Computed tomography (CT) of the facial bones and maxillofacial region was performed with 7 5 mL Omnipaque 350 intravenous contrast. Automated exposure control and iterative reconstruction tech [employer]anc[employer] were employed. The dose-length product was 319.32 mGy-cm. COMPARISON: None. FINDINGS: There are likely changes of left ocular lens replacement surgery. There is minimal plaque i n the proximal internal carotid arteries is 0% stenosis relative to normal distal artery lumen diamet ers. There is mucosal thickening in the paranasal sinuses. There is rightward deviation of the nasal septum. No fracture. There is severe cervical spondylosis. 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 IMPRESSION: 1. No specific etiology for the patient's symptoms. Reviewed, dictated and finalized at location B.
--- NOTE | ~2024-07-24 | CT_ITS ---
CT head without contrast Indication: Altered mental status COMPARISON: 08/30/2021 Technique: Serial scans were obtained through the brain without the administration of contrast. Dose reduction technique was used on this scan by utilizing automated exposure control and iterative recon struction technique. The dose-length product (DLP) was 605.33 mGy-cm. Findings: There is no evidence of intracranial hemorrhage, mass lesion, or acute infarct. The ventri cles and subarachnoid spaces are dilated, consistent with mild atrophy. Low attenuation regions are seen within the periventricular white matter bilaterally, likely representing changes from chronic mi crovascular ischemic disease. There is no evidence of edema, mass effect or midline shift. The visu alized paranasal sinuses and mastoid air cells are clear. Impression: No intracranial hemorrhage, mass, or acute infarct. Atrophy and chronic white matter changes, as above. Reviewed, dictated and finalized at [facility]. Impression: No intracranial hemorrhage, mass, or acute infarct. Atrophy and chronic white matter changes, as above.
--- NOTE | ~2024-07-24 | XR_ITS ---
MODIFIED ESOPHAGRAM HISTORY: Dysphagia. TECHNIQUE: Modified barium esophagram was performed by speech pathologist under radiologist fluorosco pic guidance. This was recorded on tape. The exam was reviewed on 07/25/2024 11:49 CDT. The DAP for this procedure was 0.653 Gycm2. Fluoroscopy time is 1.2 minutes. FINDINGS: Lateral projection of the cervical spine demonstrates moderate degenerative disease with in the cervical spine.. Flash/shallow penetration without aspiration. IMPRESSION: Flash/shallow penetration without aspiration Please refer to speech pathologist report for additional detail. Reviewed, dictated and finalized at location A.
--- NOTE | ~2024-07-24 | MR_ITS ---
EXAMINATION: MR brain/brain stem wo con DATE: 07/25/2024 13:56 INDICATION: Left facial pain. TECHNIQUE: Magnetic resonance imaging (MRI) of the brain and brainstem was performed without intraven ous contrast. COMPARISON: Brain MRI 01/27/2017 FINDINGS: There are scattered areas of nonspecific increased T2-weighted signal intensity in the cere bral white matter. There is no intracranial hemorrhage, acute infarction, or abnormal intracranial ma ss lesion. The cisternal segments of the trigeminal nerves are normal. No vascular loop compression. The ventricles are normal in size. There are trace bilateral mastoid effusions. There is mild mucosal thickening in the paranasal sinuses. There are likely changes of left ocular lens replacement surger y. IMPRESSION: 1. Moderate nonspecific cerebral white matter disease, which likely represents chronic small vessel i schemic disease, mildly worsened from 01/27/2017. Reviewed, dictated and finalized at location B. IMPRESSION: 1. Moderate nonspecific cerebral white matter disease, which likely represents chronic small vessel ischemic disease, mildly worsened from 01/27/2017.
[2024-07-24 12:10] VITALS: BP 131/48; PULSE 72; RESP 16; TEMP 36.3; O2SAT 94
--- NOTE | 2024-07-24 14:16 | ED.GENADULT ---
HPI - General Adult General Chief complaint: Eye Problems Stated complaint: possible eye infection Time Seen by Provider: 07/24/24 13:06 Source: patient and family Mode of arrival: EMS Limitations: no limitations History of Present Illness HPI narrative: Patient is an 88-year-old female, with PMH of parkinson's disease, AFIB, dementia, who presents the ED via EMS with report of left-sided facial pain. Patient is a resident of [facility]. Family at bedside assisted in providing information. Reports patient has been recurrent R sided nose bleed. Has had four rhino rockets in the past 1 week. Had rhino rocket removed on Monday with cautery of the right nare. Currently has dissolvable gauze in place. Reports over the last 4 or so days, patient has been having severe pain throughout her left-sided face. Present in her left facial cheek, around her mouth, around her eye. Pain has been so significant that she has not been eating or drinking or even talking to other residents at the facility. Family reports that [facility] has reached out to them that patient has become very weak and frail. Patient has been taking Tylenol for the pain. 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 Patient denies any vision changes, eye pain, dental pain. Related Data Home Medications ?Medication ?Instructions ?Recorded ?Confirmed ?Last Taken ?Type carbidopa 25 mg-levodopa 100 mg 1 tablet PO TID 09/08/21 07/24/24 06/28/24 History tablet carbidopa ER 50 mg-levodopa 200 mg 2 tablet PO QHS 09/08/21 07/24/24 06/27/24 History tablet,extended release mirtazapine 15 mg tablet 15 mg PO QHS 06/21/22 07/24/24 06/27/24 History docusate sodium 100 mg capsule 100 mg PO HS PRN constipation 07/24/24 07/24/24 Unknown History (Colace) ondansetron 4 mg disintegrating 4 mg PO Q8H PRN nausea and vomiting 07/24/24 07/24/24 Unknown History tablet Allergies Allergy/AdvReac Type Severity Reaction Status Date / Time Sulfa (Sulfonamide Allergy Unknown Hives Verified 07/24/24 18:25 Antibiotics) epinephrine Allergy Unknown Verified 07/24/24 18:25 Review of Systems Review of Systems: All systems reviewed & are unremarkable except as noted in HPI. 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 Essential hypertension Thalassemia Hypertension Parkinson disease Surgical History Surgical History History of tonsillectomy and adenoidectomy Status post cataract extraction of both eyes with insertion of intraocular lens H/O colectomy (1995) Right hemicolectomy with end-to-end anastomosis Due to colon cancer, most recent colonoscopy 2010 Knee joint replacement status H/O: hysterectomy Hx of appendectomy Family History Family History Father Brain tumor Mother Breast cancer Grandparent Diabetes mellitus Son , at age 62 Alcoholism Dilated cardiomyopathy Social History Social History Social History: The patient lives in [facility]. She had a daughter and a son. Her daughter is still living. She is a lifelong nonsmoker and does not drink alcohol. She ambulates with a Rollator. Code status: Full code Healthcare power of employment law attorney: Tara Lock (daughter) Smoking status: Never smoker Alcohol intake: never Substance use: never Do You Feel Safe in your Home?: Yes Lack of Transportation: No Lack of Food: Never True Current Housing: I Have Housing Concerned About Future Housing: No Difficulty Paying Gas/Electric Bills: No Difficulty Paying for Meds: No Currently Unemployed: No Education: Associate Degree Difficulty w/ Childcare or Family Care: No Spiritual care concerns: No Exam Narrative: GENERAL: Elderly, mildly uncomfortable, non-toxic, in no acute distress. HEAD: Normocephalic, atraumatic. EYES: PERRL/EOMI, conjunctiva clear. No drainage from the eye. No periorbital swelling or erythema. ENT: No significant swelling throughout left side of face, left facial cheek. Mucous membranes are dry. No focal abscess along left sided gumlines. Dental caries present in L upper mouth/molar region but no surrounding tenderness or gum inflammation. No stridor or distress. Gauze material in right nare w/o active bleeding. RESPIRATORY: Airway patent, respirations nonlabored. Clear to auscultation bilaterally, no rales, rhonchi, wheezing. CARDIOVASCULAR: Regular rate and rhythm MUSCULOSKELETAL: Moves all extremities. No gross deformities. SKIN: Warm, dry, normal color. NEURO: A&O X3. Speech clear. PSYCHIATRIC: Appropriate mood and affect. Normal interaction. Course Vital Signs Vital signs: Vital Signs Temperature 97.4 F L 07/24/24 12:10 Pulse Rate 72 07/24/24 12:10 Respiratory Rate 16 07/24/24 12:10 Blood Pressure 131/48 L 07/24/24 12:10 Pulse Oximetry 94 07/24/24 12:10 Oxygen Delivery Room Air 07/24/24 12:10 Temperature 97.4 F L 07/24/24 12:10 Pulse Rate 64 07/24/24 18:11 Respiratory Rate 16 07/24/24 18:11 Blood Pressure 130/58 L 07/24/24 18:11 Pulse Oximetry 98 07/24/24 18:11 Oxygen Delivery Room Air 07/24/24 12:10 Medical Decision Making MDM Narrative Medical decision making narrative: Patient presented to ED with several day history of left-sided facial pain. History of recent nose bleeds and having four separate rhino rockets placed in the last week. Had this removed Monday. Does also have hx of facial neuralgia and is on gabapentin for this. Reportedly had gabapentin increased yesterday and took 1st dose of increased dosage today. Vital signs are stable upon arrival. Patient consistently holding the left side of her face. She does appear mildly uncomfortable. Neurologically intact. No active epistaxis. Family reports pain has been so severe over the last few days that patient has not been eating or drinking. Laboratory studies were checked here. She is mildly anemic at 8.8. Likely related to previous nose bleeds. Her Eliquis was reportedly being held at this time. She denies any other bleeding. ESR is minimally elevated. CRP is normal. CMP with evidence of dehydration. JOEL noted. Baseline creatinine around 0.6 per records, today 1.25. Patient given fluid bolus in the ED. CT scan of facial bones with contrast was obtained and without acute abnormal findings. No evidence of abscess. Given profound pain and dehydration, will admit for further evaluation and continued IV hydration. Discussed case with Gail BARONE hospitalist, accepted patient for admission. Will consult neurology for likely trigeminal neuralgia. Will continue gabapentin. Patient was given tramadol and Tylenol in the ED with slight improvement. Patient and family are in agreement with plan and admission. Medical Records Medical records reviewed: Yes I reviewed the external patient's medical records. Vital Signs Vital Signs: Vital Signs Temperature 97.4 F L 07/24/24 12:10 Pulse Rate 72 07/24/24 12:10 Respiratory Rate 16 07/24/24 12:10 Blood Pressure 131/48 L 07/24/24 12:10 Pulse Oximetry 94 07/24/24 12:10 Oxygen Delivery Room Air 07/24/24 12:10 Temperature 97.4 F L 07/24/24 12:10 Pulse Rate 64 07/24/24 18:11 Respiratory Rate 16 07/24/24 18:11 Blood Pressure 130/58 L 07/24/24 18:11 Pulse Oximetry 98 07/24/24 18:11 Oxygen Delivery Room Air 07/24/24 12:10 Lab Data Lab results reviewed: Yes I reviewed the patient's lab results. 07/24/24 14:14 07/24/24 14:14 Labs: Lab Results 07/24/24 Range/Units 14:14 WBC 6.4 (4.5-10.0) K/mm3 RBC 4.13 L (4.2-5.4) M/mm3 Hgb 8.8 L (12.0-15.0) g/dL Hct 28.4 L (37.0-47.0) % MCV 68.8 L (80-100) fl MCH 21.3 L (26-34) pg MCHC 31.0 L (32-36) g/dl RDW 18.5 H (11.5-14.5) % Plt Count 234 (150-375) k/mm3 MPV 10.2 (7.4-10.4) fl Immature Gran % (Auto) 0.5 (0-0.5) % Neut % (Auto) 77.4 H (45.5-73.1) % Lymph % (Auto) 12.2 L (18.3-44.2) % [place] % (Auto) 8.8 H (2.6-8.5) % Eos % (Auto) 0.6 (0-4.4) % Baso % (Auto) 0.5 (0.2-1.2) % Lymph # (Auto) 0.78 L (0.9-3.2) K/mm3 [place] # (Auto) 0.6 (0.1-0.6) K/mm3 Eos # (Auto) 0.0 (0-0.3) K/mm3 Baso # (Auto) 0.0 (0.0-0.1) K/mm3 Abs Immat Gran (auto) 0.03 (0.00-0.031) K/mm3 Absolute Neuts (auto) 4.9 (1.3-6.7) K/mm3 Absolute Nucleated RBC 0.000 (0.0-0.012) K/mm3 Band Neutrophils % 0 (0-6) % Nucleated RBC % 0.0 (0.0-0.2) % Platelet Estimate Adequate (Adequate) % Immature Plt Fraction 3.8 (0.9-11.2) % Hypochromasia 1+ Anisocytosis 2+ Microcytosis 2+ (NORMAL) Schistocytes Rare ESR 22 H (0-20) mm/hr Sodium 137 (137-145) mmol/L Potassium 3.4 (3.4-5.0) mmol/L Chloride 98 (98-107) mmol/L Carbon Dioxide 32 H (22-30) mmol/L Anion Gap 7 (4-12) mmol/L BUN 31 H (7-17) mg/dL Creatinine 1.25 H (0.7-1.0) mg/dL Estim Creat Clear Calc 26 ml/min Estimated GFR 41 L (59 - ) Glucose 95 (65-110) mg/dL Calcium 8.6 (8.4-10.2) mg/dL Total Bilirubin 1.6 H (0.2-1.3) mg/dL AST 16 (14-36) U/L ALT 6 (6-35) U/L Alkaline Phosphatase 94 (38-126) U/L C-Reactive Protein 0.8 (<1.0) mg/dL Total Protein 6.0 L (6.3-8.2) g/dL Albumin 3.5 (3.5-5.1) g/dL Imaging Data Attestation: I personally reviewed and interpreted this imaging study as follows: Radiologist's impression: ITS Impressions Face CT 07/24/24 14:59 IMPRESSION: 1. No specific etiology for the patient's symptoms. Discharge Plan Discharge Clinical Impression: Left-sided face pain, JOEL (acute kidney injury), Adult failure to thrive, Dehydration Patient Disposition: Still a Patient Condition: Stable
[2024-07-24] MEDS: ACETAMINOPHEN 500 MG TABLET 1000 MG PO (14:18)
[2024-07-24] MEDS: traMADol HCL (*CRX) 50 MG TABLET PO (14:18)
[2024-07-24 14:23] LABS: Basophils Percent Auto 0.5 % (0.2-1.2); Eosinophils Percent Auto 0.6 % (0-4.4); Hematocrit 28.4 % (37.0-47.0); Hemoglobin 8.8 g/dL (12.0-15.0); Immature Granulocyte Absolute 0.03 K/mm3 (0.00-0.031); Immature Granulocyte Percent A 0.5 % (0-0.5); Immature Platelet Fraction Pct 3.8 % (0.9-11.2); Lymphocytes Absolute Auto 0.78 K/mm3 (0.9-3.2); Lymphocytes Percent Auto 12.2 % (18.3-44.2); Mean Corpuscular Hemoglobin 21.3 pg (26-34); Mean Corpuscular Volume 68.8 fl (80-100); Mean Platelet Volume 10.2 fl (7.4-10.4); Monocytes Absolute Auto 0.6 K/mm3 (0.1-0.6); Monocytes Percent Auto 8.8 % (2.6-8.5); Neutrophils Absolute Auto 4.9 K/mm3 (1.3-6.7); Neutrophils Percent Auto 77.4 % (45.5-73.1); Platelet Count Result 234 k/mm3 (150-375); Red Blood Count 4.13 M/mm3 (4.2-5.4); Red Cell Distribution Width 18.5 % (11.5-14.5); White Blood Count 6.4 K/mm3 (4.5-10.0)
[2024-07-24] MEDS: SODIUM CHLORIDE 0.9% IV 1,000 ML 999 ML IV CONT (14:26)
[2024-07-24 14:30] LABS: Alanine Aminotransferase 6 U/L (6-35); Albumin Level 3.5 g/dL (3.5-5.1); Alkaline Phosphatase 94 U/L (38-126); Anion Gap 7 mmol/L (4-12); Aspartate Amino Transferase 16 U/L (14-36); Bilirubin,Total 1.6 mg/dL (0.2-1.3); Blood Urea Nitrogen 31 mg/dL (7-17); Calcium 8.6 mg/dL (8.4-10.2); Carbon Dioxide 32 mmol/L (22-30); Chloride 98 mmol/L (98-107); Estimated CRCL calculation 26 ml/min; Estimated Glomerular Filt Rate 41; Glucose 95 mg/dL (65-110); Potassium 3.4 mmol/L (3.4-5.0); Sodium 137 mmol/L (137-145)
[2024-07-24 14:45] LABS: Platelet Estimate Adequate (Adequate)
[2024-07-24 14:46] LABS: Schistocytes Rare
[2024-07-24 14:47] LABS: Microcytosis 2+ (NORMAL)
[2024-07-24 14:48] LABS: Anisocytosis 2+; Hypochromasia 1+
[2024-07-24 14:49] LABS: Band Neutrophils Percent 0 % (0-6)
[2024-07-24 14:50] LABS: Erythrocyte Sedimentation Rate 22 mm/hr (0-20)
[2024-07-24 15:25] LABS: CRP 0.8 mg/dL (<1.0)
[2024-07-24 15:29] VITALS: BP 132/40; PULSE 70; RESP 18; O2SAT 100
--- NOTE | 2024-07-24 16:30 | P.HP_ITS ---
H&P: HPI History of Present Illness Date/Time: 07/24/24 16:30 Chief Complaint: Left facial pain. Narrative: This is an 88-year-old female with dementia, Parkinson's, hypertension, paroxysmal atrial fibrillation, pulmonary hypertension, right-sided heart failure, diastolic dysfunction, and melanoma who presented to the emergency department via EMS from [facility] for evaluation of left facial pain. The patient and her daughter provides the following history. She was admitted to the hospital about a month ago with CHF exacerbation, influenza, and rapid atrial fibrillation. Atrial fibrillation was apparently difficult to control and she was ultimately started on amiodarone and apixaban for stroke prophylaxis. She was diuresed with improvement and was discharged back to her assisted living facility. She has been seen in the ED four times since with right-sided epistaxis and a couple of days ago she had her most recent rhino rocket removed with cautery of the right naris. Apixaban has since been discontinued. She presents today with complaints of left-sided facial pain which she describes as a severe, dull ache that comes and goes in waves of intensity. Pain seems to start in the jaw and radiates up into the eye and left cheek. Her left eye has been watering but that is not necessarily unusual for following surgery in which a melanoma was removed from the eye itself. With further questioning her daughter reports that she has a history of facial neurology and the patient states that the symptoms are similar. She is not eating or drinking much as it causes the pain to worsen. She was started back on gabapentin without much relief. Daughter is concerned that she is becoming increasingly weak and frail and she fell today due to the weakness; she did not injure herself and there was no loss of consciousness, thankfully. She denies fever, headache, visual changes, pain with extraocular motions, cold and flu symptoms, dysphagia, swollen lymph nodes, neck pain, chest pain, nausea, vomiting, diarrhea, dysuria, and rashes. In the ED: Vital signs were stable on arrival. Labs were significant for hemoglobin of 8.8, MCV 68.8, BUN 31, creatinine 1.25, serum carbon dioxide 32, total bili I 0.6. A CT showed no specific etiology for the patient's symptoms. She was given a L of normal saline and acetaminophen and she is being admitted in this setting for hydration and neurology consultation. Review of Systems Review of Systems: 12 systems were reviewed and are negativ e except for as per HPI. 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 Thalassemia Hypertension Parkinson disease Surgical History Surgical History (Updated 07/24/24 @ 23:10 by Gail Cortes PA-C) History of hysterectomy History of tonsillectomy and adenoidectomy Status post cataract extraction of both eyes with insertion of intraocular lens H/O colectomy (1995) Right hemicolectomy with end-to-end anastomosis Due to colon cancer, most recent colonoscopy 2010 Knee joint replacement status Hx of appendectomy Family History Family History Father Brain tumor Mother Breast cancer Grandparent Diabetes mellitus Son , at age 62 Alcoholism Dilated cardiomyopathy Social History Social History (Updated 07/24/24 @ 23:11 by Gail Cortes PA-C) Social History: Healthcare power of tax attorney: Tara Lock, daughter. Code status: Full code. Smoking status: Never smoker Alcohol intake: never Substance use: never Do You Feel Safe in your Home?: Yes Lack of Transportation: No Lack of Food: Never True Current Housing: I Have Housing Concerned About Future Housing: No Difficulty Paying Gas/Electric Bills: No Difficulty Paying for Meds: No Currently Unemployed: No Education: Associate Degree Difficulty w/ Childcare or Family Care: No Living arrangements: assisted living Additional living arrangements comments: Assisted living at [facility]. She has a daughter and a son. Ambulates with Rollator. Spiritual care concerns: No Meds Home Medications and Allergies Home Medications ?Medication ?Instructions ?Recorded ?Confirmed ?Type carbidopa 25 mg-levodopa 100 mg 1 tablet PO TID 09/08/21 07/24/24 History tablet carbidopa ER 50 mg-levodopa 200 mg 2 tablet PO QHS 09/08/21 07/24/24 History tablet,extended release mirtazapine 15 mg tablet 15 mg PO QHS 06/21/22 07/24/24 History acetaminophen 500 mg tablet 500 mg PO Q8H PRN pain #90 tabs 07/22/22 07/24/24 Rx amoxicillin 875 mg-potassium 1 tablet PO Q12H 3 days #6 tabs 07/17/24 07/24/24 Rx clavulanate 125 mg tablet amiodarone 200 mg tablet (Pacerone) 200 mg PO DAILY #30 tabs 07/19/24 07/24/24 Rx furosemide 40 mg tablet 40 mg PO BID #60 tabs 07/19/24 07/24/24 Rx gabapentin 300 mg capsule 300 mg PO BID #120 caps 07/23/24 07/24/24 Rx docusate sodium 100 mg capsule 100 mg PO HS PRN constipation 07/24/24 07/24/24 History (Colace) ondansetron 4 mg disintegrating 4 mg PO Q8H PRN nausea and vomiting 07/24/24 07/24/24 History tablet Allergies Allergy/AdvReac Type Severity Reaction Status Date / Time Sulfa (Sulfonamide Allergy Unknown Hives Verified 07/24/24 18:25 Antibiotics) epinephrine Allergy Unknown Verified 07/24/24 18:25 Vital Signs Vital Signs - 24 hr 07/24/24 12:10 07/24/24 15:29 Temperature 97.4 F L Pulse Rate 72 70 Respiratory Rate 16 18 Blood Pressure 131/48 L 132/40 L Pulse Oximetry 94 100 Oxygen Delivery Room Air Exam Narrative: General: Thin, chronically ill-appearing elderly female in the semi-Steen position in bed. She is hard of hearing. Weight: 51.1 kg. BMI: 18.7 HEENT: Wearing corrective lenses. PERRL, EOMI. Conjunctiva mildly injected. Sclera anicteric. Tacky mucous membranes. Neck: Supple. Respiratory: Lungs are clear to auscultation bilaterally. Cardiovascular: Regular rate and rhythm. Systolic murmur at the apex. Gastrointestinal: Abdomen is soft, nontender, and nondistended with positive bowel sounds. Skin: Warm and dry. No rashes. Skin tear on the left forearm. Extremities: No cyanosis, clubbing, or significant edema. Radial and pedal pul ses intact. Neurological: Alert. Cranial nerves 2-12 are grossly intact. No gross focal deficits to casual conversation. Psychiatric: Pleasant and cooperative with appropriate mood and affect. H&P: Results Labs Labs: Short CBC 07/24/24 Range/Units 14:14 WBC 6.4 (4.5-10.0) K/mm3 Hgb 8.8 L (12.0-15.0) g/dL Hct 28.4 L (37.0-47.0) % Plt Count 234 (150-375) k/mm3 BMP 07/24/24 14:14 Sodium 137 Potassium 3.4 Chloride 98 Carbon Dioxide 32 H BUN 31 H Creatinine 1.25 H Glucose 95 Calcium 8.6 Liver Function 07/24/24 Range/Units 14:14 Total Bilirubin 1.6 H (0.2-1.3) mg/dL AST 16 (14-36) U/L ALT 6 (6-35) U/L Alkaline Phosphatase 94 (38-126) U/L Albumin 3.5 (3.5-5.1) g/dL Impressions Face CT 07/24/24 14:59 IMPRESSION: 1. No specific etiology for the patient's symptoms. Assessment and Plan Assessment and plan (1) Acute kidney injury: Code(s): N17.9 - Acute kidney failure, unspecified Status: Acute (2) Microcytic anemia: Code(s): D50.9 - Iron deficiency anemia, unspecified Status: Acute (3) Facial neuralgia: Code(s): G51.8 - Other disorders of facial nerve Status: Acute (4) Diastolic dysfunction: Code(s): I51.89 - Other ill-defined heart diseases Status: Acute (5) Right-sided heart failure: Qualifiers: Heart failure chronicity: acute on chronic Qualified Code(s): I50.813 - Acute on chronic right heart failure Code(s): I50.810 - Right heart failure, unspecified Status: Acute (6) Hypertension: Qualifiers: Hypertension type: primary hypertension Qualified Code(s): I10 - Essential (primary) hypertension Code(s): I10 - Essential (primary) hypertension Status: Acute (7) Paroxysmal atrial fibrillation: Code(s): I48.0 - Paroxysmal atrial fibrillation Status: Acute (8) Parkinson disease: Qualifiers: Dyskinesia presence: unspecified whether dyskinesia Fluctuating manifestations: unspecified whether manifestations fluctuate Qualified Code(s): G20.A1 - Parkinson's disease without dyskinesia, without mention of fluctuations Code(s): G20 - Parkinson's disease Status: Acute Plan The patient presented to the emergency department with complaints of left-sided facial pain as detailed in HPI. Labs, imaging, EKG, and all reports were personally reviewed. She has a history of facial neurology on that is likely the cause of her symptoms. Continue gabapentin; neurology consulted for r ecommendations. She is having difficulties eating due to pain and looks dehydrated on exam and by labs. She has an acute kidney injury which is due to poor oral intake compounded by the diuretics that she was recently put on for heart failure. She will be hydrated overnight with close monitoring of volume status and renal function. Hold furosemide for now. Anemia is likely due to several recent, pretty significant nose bleeds however she has microcytic indices indicating that she may have ongoing blood loss or some of this may be nutritional. Iron studies have been ordered and are pending. She is no longer on apixaban due to the epistaxis. At the time of my evaluation she sounds to be in a sinus rhythm. Continue amiodarone. The rest of her home medications will be reviewed and resumed as appropriate. Findings and treatment plan were discussed with the patient and her family at bedside. Questions were solicited and answered to satisfaction. The patient's medical management will be taken over by the hospitalist team in a.m. Quality VTE Prophylaxis VTE prophylaxis: mechanical ordered If No VTE Prophylaxis Answer both mechanical and pharmacologic: Reason no pharmacologic proph: medical contraindication (anemia, recent recur rent epistaxis) The patient has been admitted under observation status. Hospitalist [facility] Advance Care Plan I have confirmed that the patient's Advanced Care Plan is present, code status is documented, or surrogate decision maker is listed in patient medical record.: Yes Medication Reconciliation I have utilized all available resources to obtain, update and review the patients current medications (includes all prescriptions, OTC, herbals, cannabis, and nutritional supplements).: Yes
[2024-07-24 17:34] VITALS: BMI 18.7
[2024-07-24] MEDS: SODIUM CHLORIDE 0.9% IV 1,000 ML 100 ML IV CONT (17:56)
--- NOTE | 2024-07-24 18:02 | ADMGEN ---
This patient, Haven Mckoy, was admitted to Medical Room 249-01. Patient/family oriented to hospital policies and general routines including ID bracelet, bed and alarms, visiting hours, pain management, procedures, bathroom and other care routines, personal items, smoking policy, room service/diet, and visiting hours. Information on how to activate the Rapid Response Team has been discussed. Patient/Family are encouraged to report perceived risks to care and to ask questions if they do not understand what they are told or what they should do.
[2024-07-24 18:11] VITALS: BP 130/58; PULSE 64; RESP 16; O2SAT 98
[2024-07-24] MEDS: CARBIDOPA/LEVODOPA 25/100 MG TABLET 1 TABLET PO (18:55)
[2024-07-24 20:57] VITALS: BP 123/55; PULSE 49; RESP 18; TEMP 36.1; O2SAT 100
[2024-07-24] MEDS: GABAPENTIN 300 MG CAPSULE PO (20:59)
[2024-07-24] MEDS: MIRTAZAPINE 15 MG TABLET PO (22:22)
[2024-07-24] MEDS: CARBIDOPA/LEVODOPA 25/100 MG CR TABLET 2 TABLET PO (22:22)
[2024-07-25] MEDS: SODIUM CHLORIDE 0.9% IV 1,000 ML 100 ML IV CONT (04:20)
[2024-07-25 05:09] LABS: Hematocrit 27.5 % (37.0-47.0); Hemoglobin 8.4 g/dL (12.0-15.0); Immature Platelet Fraction Pct 3.7 % (0.9-11.2); Mean Corpuscular HGB Conc 30.5 g/dl (32-36); Mean Corpuscular Hemoglobin 20.9 pg (26-34); Mean Corpuscular Volume 68.6 fl (80-100); Platelet Count Result 227 k/mm3 (150-375); Red Blood Count 4.01 M/mm3 (4.2-5.4); Red Cell Distribution Width 18.6 % (11.5-14.5); White Blood Count 7.4 K/mm3 (4.5-10.0)
[2024-07-25 05:11] VITALS: BP 128/51; PULSE 58; RESP 18; TEMP 36.6; O2SAT 100
[2024-07-25 05:16] LABS: Iron 65 ug/dL (37-170)
[2024-07-25 05:17] LABS: Anion Gap 5 mmol/L (4-12); Blood Urea Nitrogen 25 mg/dL (7-17); Calcium 8.2 mg/dL (8.4-10.2); Carbon Dioxide 29 mmol/L (22-30); Chloride 104 mmol/L (98-107); Estimated CRCL calculation 27 ml/min; Estimated Glomerular Filt Rate 46; Glucose 69 mg/dL (65-110); Magnesium 2.1 mg/dL (1.6-2.3); Potassium 3.8 mmol/L (3.4-5.0); Sodium 138 mmol/L (137-145)
[2024-07-25 05:25] LABS: Percent Iron Saturation 22 % (20-50)
[2024-07-25 06:29] LABS: Folic Acid 4.7 ng/mL (2.76->20)
[2024-07-25 07:27] LABS: Free T4 Free Thyroxine Reflex 1.17 ng/dL (0.78-2.19)
--- NOTE | 2024-07-25 08:13 | P.PNIM_ITS ---
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 Status: Acute Assessment and Plan: Patient family reports previous history of left facial Neuralgia currently pain is intense and she is unable to eat and has been withdrawn * currently on gabapentin not working may need to try an Tegretol, Junior will wait on Neurology input * add baclofen * MRI pending * Neurology consulted recommendations appreciated * CT facial with no acute findings (2) Acute kidney injury: Code(s): N17.9 - Acute kidney failure, unspecified Status: Acute Assessment and Plan: Patient with poor oral intake due to severe pain * Cr mildly elevated POA * improving with IV fluids (3) Microcytic anemia: Code(s): D50.9 - Iron deficiency anemia, unspecified Status: Acute Assessment and Plan: Patient with poor oral intake was likely secondary to poor protein intake and malnutrition but patient was having multiple epistaxis and her eliquis was stopped * Hgb stable 8.4 * Iron panel pending * will start iron supplements 325 BID * transfuse PRBC if hgb <7.0 (4) Paroxysmal atrial fibrillation: Code(s): I48.0 - Paroxysmal atrial fibrillation Status: Acute Assessment and Plan: * Resumed amiodarone * Eliquis has been discontinued due to continued nosebleeds (5) Parkinson disease: Qualifiers: Dyskinesia presence: unspecified whether dyskinesia Fluctuating manifestations: unspecified whether manifestations fluctuate Qualified Code(s): G20.A1 - Parkinson's disease without dyskinesia, without mention of fluctuations Code(s): G20 - Parkinson's disease Status: Acute Assessment and Plan: * resume carbidopa levodopa * PT/OT (6) Adult failure to thrive: Code(s): R62.7 - Adult failure to thrive Status: Acute Assessment and Plan: Patient with reported poor oral intake and withdrawing at her assisted living possibly secondary to worsening severe LT sided facial pain and chronic conditions of Parkison's and Dementia * Barium swallow and speech consulted * add protein shakes with each meal (7) Heart failure with preserved ejection fraction (HFpEF, >= 50%): Qualifiers: Heart failure chronicity: acute on chronic Qualified Code(s): I50.33 - Acute on chronic diastolic (congestive) heart failure Code(s): I50.30 - Unspecified diastolic (congestive) heart failure Status: Acute Assessment and Plan: * Lasix on hold patient dehydrated on admission due to poor oral intake Plan Code status: Full code per patient DVT prophylaxis: SCD Stress ulcer prophylaxis: NA PT/OT notes: PT/OT pending Disposition: patient was admitted to the medical unit for further evaluation and treatment of failure to thrive likely secondary to severe left facial pain and anemia. neurology has been consulted for further recommendations initiated baclofen and consulted speech with barium swallow to determine diet. patient currently resides at assisted living PT OT pending for further evaluation for possible discharge needs. Time Spent With Patient Time with patient: 15 - 25 minutes Subjective Date/time seen: 07/25/24 08:13 Interval history: Patient is a 88-year old female admitted for further evaluation facial pain, failure to thrive and anemia 07/25/24: Assumed Care Patient returned from MRI at time of assessment, denied any CP, SOB, N/V, visual changes. mild erythema to left eye. Patient report mild improvement to pain after adding Baclofen, MRI pending. Review of Systems Review of Systems: All systems reviewed & are unremarkable except as noted in HPI and below Exam Const: General: comfortable and no acute distress HENMT: Mouth: Yes moist mucous membranes Eyes: Pupils: Equal, round and reactive pupils present Other: Erythema to Left eye Neck: Neck: supple and no JVD Resp: Effort & Inspection: normal respiratory effort Auscultation: clear to auscultation bilaterally Cardio: Rate: tachycardic Rhythm: regular rhythm GI: GI Palp: Yes Soft to palpation Auscultation: normal bowel sounds Skin: General skin exam: normal color Neuro: Speech: normal speech Extrem: General: normal to inspection Psych: Mental Status: mental status grossly normal Objective Data Vital Signs Vital Signs: Vital Signs - 24 hr 07/24/24 12:10 07/24/24 15:29 07/24/24 18:11 Temperature 97.4 F L Pulse Rate 72 70 64 Respiratory Rate 16 18 16 Blood Pressure 131/48 L 132/40 L 130/58 L Pulse Oximetry 94 100 98 Oxygen Delivery Room Air 07/24/24 19:25 07/24/24 20:57 07/25/24 05:11 Temperature 97 F L 97.8 F Pulse Rate 49 L 58 L Respiratory Rate 18 18 Blood Pressure 123/55 L 128/51 L Pulse Oximetry 100 100 Oxygen Delivery Room Air Intake/Output Intake/Output: Intake & Output 07/22/24 07/23/24 07/24/24 07/25/24 23:59 23:59 23:59 23:59 Intake Total 1100 100 Output Total 300 Balance 1100 -200 Meds/Results Medications: Active Medications Generic Name Dose Route Start Last Admin Trade Name Thorq PRN Reason Stop Dose Admin Acetaminophen 650 mg 07/24/24 15:47 Acetaminophen 325 Mg Tablet PO Q4H PRN Mild Pain (1-3) or Fever Amiodarone HCl 200 mg 07/25/24 09:00 Amiodarone Hcl 200 Mg Tablet PO DAILY LIZA Carbidopa/Levodopa 3 tablet 07/25/24 08:00 Carbidopa/Levodopa 25/100 Mg Tablet PO 0800,1200,1800 LIZA Carbidopa/Levodopa 2 tablet 07/24/24 21:50 07/24/24 22:22 Carbidopa/Levodopa 25/100 Mg Cr Tablet PO 2 tablet QHS LIZA Administration Dextrose 12.5 gm 07/24/24 15:48 Dextrose 50% 25 Gm/50 Ml Syringe IV PUSH PRN PRN Hypoglycemia Protocol Docusate Sodium 100 mg 07/24/24 21:48 Docusate Sodium 100 Mg Capsule PO HS PRN constipation Gabapentin 300 mg 07/24/24 20:00 07/24/24 20:59 Gabapentin 300 Mg Capsule PO 300 mg BID LIZA Administration Glucagon 1 mg 07/24/24 15:48 Glucagon For Inj 1 Mg Vial IM PRN PRN Hypoglycemia Protocol Glucose 15 gm 07/24/24 15:48 Glucose Oral Gel 15 Gm Of Glucse In 37.5 Gm Tube PO PRN PRN Hypoglycemia Protocol Dextrose 1,000 mls @ 100 mls/hr 07/24/24 15:48 Dextrose 5% 1,000 Ml IVPB PRN PRN Hypoglycemia Protocol Sodium Chloride 1,000 mls @ 100 mls/hr 07/25/24 04:15 07/25/24 04:20 Normal Saline Iv IV CONT 07/25/24 14:14 100 mls/hr .Q10H ONE Administration Mirtazapine 15 mg 07/24/24 21:55 07/24/24 22:22 Mirtazapine 15 Mg Tablet PO 15 mg QHS LIZA Administration Radiology Results: ITS Impressions Face CT 07/24/24 14:59 IMPRESSION: 1. No specific etiology for the patient's symptoms. Labs Labs: Laboratory Results - last 24 hr 07/24/24 07/25/24 14:14 04:31 WBC 6.4 7.4 RBC 4.13 L 4.01 L Hgb 8.8 L 8.4 L Hct 28.4 L 27.5 L MCV 68.8 L 68.6 L MCH 21.3 L 20.9 L MCHC 31.0 L 30.5 L RDW 18.5 H 18.6 H Plt Count 234 227 MPV 10.2 10.0 Immature Gran % (Auto) 0.5 Neut % (Auto) 77.4 H Lymph % (Auto) 12.2 L York % (Auto) 8.8 H Eos % (Auto) 0.6 Baso % (Auto) 0.5 Lymph # (Auto) 0.78 L York # (Auto) 0.6 Eos # (Auto) 0.0 Baso # (Auto) 0.0 Abs Immat Gran (auto) 0.03 Absolute Neuts (auto) 4.9 Absolute Nucleated RBC 0.000 Band Neutrophils % 0 Nucleated RBC % 0.0 Platelet Estimate Adequate % Immature Plt Fraction 3.8 3.7 Hypochromasia 1+ Anisocytosis 2+ Microcytosis 2+ Schistocytes Rare ESR 22 H Sodium 137 138 Potassium 3.4 3.8 Chloride 98 104 Carbon Dioxide 32 H 29 Anion Gap 7 5 BUN 31 H 25 H Creatinine 1.25 H 1.11 H Estim Creat Clear Calc 26 27 Estimated GFR 41 L 46 L Glucose 95 69 Calcium 8.6 8.2 L Magnesium 2.1 Iron 65 TIBC 293 % Saturation 22 Ferritin 140.00 Total Bilirubin 1.6 H AST 16 ALT 6 Alkaline Phosphatase 94 C-Reactive Protein 0.8 Total Protein 6.0 L Albumin 3.5 Vitamin B12 345.0 Folate 4.7 TSH (Reflex) 15.900 H Free T4 1.17 Quality VTE Prophylaxis VTE prophylaxis: mechanical ordered -Patient's previous records reviewed on admission -ER notes reviewed in detail on admission -discussed all findings and current treatment plan with patient/Family/POA -Consultations reviewed for recommendations -Patient's disposition for safe discharge discussed with manager case Dictation performed by [employer] direct speech recognition software, therefore communications senior associate variants and typographical errors may occur. Hospitalist MIPS Advance Care Plan I have confirmed that the patient's Advanced Care Plan is present, code status is documented, or surrogate decision maker is listed in patient medical record.: Yes Medication Reconciliation I have utilized all available resources to obtain, update and review the patients current medications (includes all prescriptions, OTC, herbals, cannabis, and nutritional supplements).: Yes The patient is not eligible for med reconciliation; the patient is in a emergent medical situation where delaying treatment would jeopardize the patients health.: No
[2024-07-25 08:20] VITALS: BP 106/44; PULSE 59; O2SAT 96
[2024-07-25 08:21] VITALS: PULSE 59
[2024-07-25] MEDS: AMIODARONE HCL 200 MG TABLET PO (08:21)
[2024-07-25] MEDS: CARBIDOPA/LEVODOPA 25/100 MG TABLET 3 TABLET PO ×3 (08:21→17:30)
[2024-07-25] MEDS: GABAPENTIN 300 MG CAPSULE PO ×2 (08:21→17:30)
[2024-07-25 08:49] LABS: Total Triiodothyronine (T3) 0.84 NG/ML (0.97-1.69)
[2024-07-25] MEDS: FERROUS SULFATE 325 MG TABLET DR PO ×2 (09:15→17:30)
[2024-07-25] MEDS: ACETAMINOPHEN 325 MG TABLET 650 MG PO (10:39)
--- NOTE | 2024-07-25 11:32 | P.CONNEU_ITS ---
Assessment and Plan Assessment and plan (1) Left-sided face pain: Code(s): R51.9 - Headache, unspecified Status: Acute Assessment and Plan: She does point to the pain in the left eye and left maxillary area however this is persistent but did not wake her up from her sleep at night. There is prior history of pain in this distribution. She also has had recent bleed from the right nostril. 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 Previous MRI in 2022 had shown postoperative the old notes from [facility] christelle Rizo that she did complain pain in the and was being treated with Neurontin. she does report decreased sensation in the left maxillary nerve distribution compared to the right side which is intriguing since in trigeminal neuralgia generally I would not expect sensory loss and has had MRI of the brain commended. (2) Parkinson disease: Qualifiers: Dyskinesia presence: unspecified whether dyskinesia Fluctuating manifestations: unspecified whether manifestations fluctuate Qualified Code(s): G20.A1 - Parkinson's disease without dyskinesia, without mention of fluctuations Code(s): G20 - Parkinson's disease Status: Acute Assessment and Plan: The patient is on Sinemet 25/103 tablets 3 times a day and Sinemet CR 50/200 1-2 tablets at bedtime. She seems to fairly well controlled and does not display much dyskinesia although occasional dyskinetic movements were observed. She should be considered stable from Parkinson disease point of view at this time. She follows with movement Disorder Clinic at [facility] for many years and should continue to do so. (3) Hypertension: Qualifiers: Hypertension type: primary hypertension Qualified Code(s): I10 - Essential (primary) hypertension Code(s): I10 - Essential (primary) hypertension Status: Acute (4) CHF (congestive heart failure): Qualifiers: Heart failure chronicity: acute on chronic Heart failure type: u nspecified Qualified Code(s): I50.9 - Heart failure, unspecified Code(s): I50.9 - Heart failure, unspecified Status: Acute (5) Pulmonary hypertension: Code(s): I27.20 - Pulmonary hypertension, unspecified Status: Acute (6) Paroxysmal atrial fibrillation with RVR: Code(s): I48.0 - Paroxysmal atrial fibrillation Status: Acute (7) Dehydration: Code(s): E86.0 - Dehydration Status: Acute Plan I would suggest an MRI of the brain and treat her for left facial pain symptomatically. She has already been started on baclofen 10 mg 3 times a day and she is on gabapentin 3 him. She may be offered tramadol and Tylenol in addition if necessary. if this is not effective we can increase the dose of gabapentin to 300 mg 3 times a day. Further medications may be considered if necessary. Consult date: 07/25/24 HPI: Haven Mckoy is a 88 year old female Admitted to the hospital with complaints of severe pain in the left side of the face. She has had recent nosebleed from the right side being attended by ENT physician. She does have a long history of left facial pain diagnosed to have trigeminal neuralgia and has been on gabapentin. She follows up with the [facility] neurology services for Parkinson's disease for several years and this has been fairly well controlled. Patient is hard of hearing and is unable to communicate very well on account of this. There is also history of congestive cardiac failure, dementia and atrial fibrillation patient has had a melanoma removed from the left conjunctiva in the past. An MRI of the brain performed in November of 2022 had shown postoperative changes resulting from the surgery or left conjunctival mass. Most recent creatinine is 1.1 BUN of 25 GFR of 46. Serum B12 level was normal. TSH was high at 15.9. Echocardiogram performed on for in June 2024 at shown ejection fraction of 50-55% and pulmonary hypertension and a few other abnormalities the finding was the valve. She has been now started on baclofen 10 mg 3 times a day in addition to Neurontin being continued. Patient describes the pain in the left eye and also in the left malar area. This is being described as being continuous. However during the night she was able to sleep and did not wake up because the pain. She feels the pain is slightly better compared to yesterday with the medications given so far. 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 Thalassemia Hypertension Parkinson disease Surgical History Surgical History History of hysterectomy History of tonsillectomy and adenoidectomy Status post cataract extraction of both eyes with insertion of intraocular lens H/O colectomy (1995) Right hemicolectomy with end-to-end anastomosis Due to colon cancer, most recent colonoscopy 2010 Knee joint replacement status Hx of appendectomy Family History Family History Father Brain tumor Mother Breast cancer Grandparent Diabetes mellitus Son , at age 62 Alcoholism Dilated cardiomyopathy Social History Social History Social History: Healthcare power of privacy attorney: Tara Lock, daughter. Code status: Full code. Smoking status: Never smoker Alcohol intake: never Substance use: never Do You Feel Safe in your Home?: Yes Lack of Transportation: No Lack of Food: Never True Current Housing: I Have Housing Concerned About Future Housing: No Difficulty Paying Gas/Electric Bills: No Difficulty Paying for Meds: No Currently Unemployed: No Education: Associate Degree Difficulty w/ Childcare or Family Care: No Living arrangements: assisted living Additional living arrangements comments: Assisted living at [facility]. She has a daughter and a son. Ambulates with [employer]. Spiritual care concerns: No Meds Home Medications and Allergies Home Medications ?Medication ?Instructions ?Recorded ?Confirmed ?Type carbidopa 25 mg-levodopa 100 mg 1 tablet PO TID 09/08/21 07/24/24 History tablet carbidopa ER 50 mg-levodopa 200 mg 2 tablet PO QHS 09/08/21 07/24/24 History tablet,extended release mirtazapine 15 mg tablet 15 mg PO QHS 06/21/22 07/24/24 History acetaminophen 500 mg tablet 500 mg PO Q8H PRN pain #90 tabs 07/22/22 07/24/24 Rx amoxicillin 875 mg-potassium 1 tablet PO Q12H 3 days #6 tabs 07/17/24 07/24/24 Rx clavulanate 125 mg tablet amiodarone 200 mg tablet (Pacerone) 200 mg PO DAILY #30 tabs 07/19/24 07/24/24 Rx furosemide 40 mg tablet 40 mg PO BID #60 tabs 07/19/24 07/24/24 Rx gabapentin 300 mg capsule 300 mg PO BID #120 caps 07/23/24 07/24/24 Rx docusate sodium 100 mg capsule 100 mg PO HS PRN constipation 07/24/24 07/24/24 History (Colace) ondansetron 4 mg disintegrating 4 mg PO Q8H PRN nausea and vomiting 07/24/24 07/24/24 History tablet Allergies Allergy/AdvReac Type Severity Reaction Status Date / Time Sulfa (Sulfonamide Allergy Unknown Hives Verified 07/24/24 18:25 Antibiotics) epinephrine Allergy Unknown Verified 07/24/24 18:25 Vital Signs Vital Signs - 24 hr 07/24/24 12:10 07/24/24 15:29 07/24/24 18:11 Temperature 97.4 F L Pulse Rate 72 70 64 Respiratory Rate 16 18 16 Blood Pressure 131/48 L 132/40 L 130/58 L Pulse Oximetry 94 100 98 Oxygen Delivery Room Air 07/24/24 19:25 07/24/24 20:57 07/25/24 05:11 Temperature 97 F L 97.8 F Pulse Rate 49 L 58 L Respiratory Rate 18 18 Blood Pressure 123/55 L 128/51 L Pulse Oximetry 100 100 Oxygen Delivery Room Air 07/25/24 08:00 07/25/24 08:20 07/25/24 08:21 Temperature Pulse Rate 59 L 59 L Respiratory Rate Blood Pressure 106/44 L Pulse Oximetry 96 Oxygen Delivery Room Air Exam 2 Narrative: Fully conscious alert oriented to self time place and person. The patient is hard of hearing but does express herself fairly well about the pain. No aphasia or dysarthria. Examination head and neck shows no evidence of external trauma no nuchal rigidity no carotid bruit. Cranial nerves pupils were equal react to light visual tolbert by confrontation are normal. There is no facial asymmetry. Facial sensation however patient reports decreased sensation in the left maxillary nerve distribution compared to the right side. There appears to some reddening of the ages of the eyelids on the left side compared to the right side no significant cogwheeling. Minimal dyskinesia noted. Normal strength in both upper and lower limbs. Deep tendon reflexes did not show any significant asymmetry. Plantars were downgoing. Sensory is grossly intact. Results Labs 07/25/24 04:31 07/25/24 04:31 Labs: Short CBC 07/24/24 07/25/24 Range/Units 14:14 04:31 WBC 6.4 7.4 (4.5-10.0) K/mm3 Hgb 8.8 L 8.4 L (12.0-15.0) g/dL Hct 28.4 L 27.5 L (37.0-47.0) % Plt Count 234 227 (150-375) k/mm3 BMP 07/24/24 07/25/24 14:14 04:31 Sodium 137 138 Potassium 3.4 3.8 Chloride 98 104 Carbon Dioxide 32 H 29 BUN 31 H 25 H Creatinine 1.25 H 1.11 H Glucose 95 69 Calcium 8.6 8.2 L Liver Function 07/24/24 Range/Units 14:14 Total Bilirubin 1.6 H (0.2-1.3) mg/dL AST 16 (14-36) U/L ALT 6 (6-35) U/L Alkaline Phosphatase 94 (38-126) U/L Albumin 3.5 (3.5-5.1) g/dL
--- NOTE | 2024-07-25 11:57 | PCSTNOTE ---
Please refer to the Modified Barium Swallow Evaluation in the EMR. The above pleasant and cooperative pt was seen for an inpatient modified barium swallow. She was alert but seemed confused when asked questions re her history. Pt denied difficulty swallowing, i.e. coughing or choking associated with liquids or solids. She is currently on a regular diet with regular liquids. Oral mucosa is normal, vocal quality clear. The patient was seated for a lateral view and presented with 5cc of thin liquid barium via spoon, pudding consistency barium via a spoon, cracker coated with barium pudding via spoon, and uncontrolled thin liquid barium. This was presented via a cup & straw. Oral preparatory and oral phase symptoms: none. Pharyngeal phase symptoms: flash (shallow) laryngeal penetration with the trials of thin liquid via the spoon and straw. No aspiration risk was present. Esophageal stage symptoms: none. No aspiration occurred. Impressions: Normal /functional swallow Ability Recommendations: Regular diet with regular liquids; OOB for meals. No further ST is warranted at this time.
[2024-07-25] MEDS: traMADol/ACETAMINOPHEN (*CRX) (ULTRACET) 37.5/325 MG TABLET 1 TAB PO ×2 (12:21→17:29)
[2024-07-25 12:52] LABS: CRP 0.7 mg/dL (<1.0)
[2024-07-25 14:00] VITALS: BP 130/64; PULSE 109; RESP 18; TEMP 36.4; O2SAT 97
[2024-07-25] MEDS: BACLOFEN 10 MG TABLET PO ×2 (14:06→21:57)
[2024-07-25] MEDS: MIRTAZAPINE 15 MG TABLET PO (20:34)
[2024-07-25] MEDS: CARBIDOPA/LEVODOPA 25/100 MG CR TABLET 2 TABLET PO (20:34)
[2024-07-25 20:36] VITALS: BP 128/58; PULSE 60; RESP 16; TEMP 36.4; O2SAT 97
[2024-07-26 06:32] VITALS: BP 130/58; PULSE 62; RESP 16; TEMP 36.6; O2SAT 98
[2024-07-26] MEDS: LEVOTHYROXINE SODIUM 12.5 MCG TABLET PO (06:44)
[2024-07-26] MEDS: BACLOFEN 10 MG TABLET PO ×3 (06:44→21:16)
[2024-07-26 08:37] LABS: Hemoglobin 8.9 g/dL (12.0-15.0); Immature Platelet Fraction Pct 2.9 % (0.9-11.2); Mean Corpuscular HGB Conc 30.7 g/dl (32-36); Mean Corpuscular Hemoglobin 21.1 pg (26-34); Mean Corpuscular Volume 68.7 fl (80-100); Mean Platelet Volume 9.6 fl (7.4-10.4); Platelet Count Result 219 k/mm3 (150-375); Red Blood Count 4.22 M/mm3 (4.2-5.4); Red Cell Distribution Width 18.5 % (11.5-14.5); White Blood Count 7.5 K/mm3 (4.5-10.0)
[2024-07-26 08:44] LABS: Alanine Aminotransferase 7 U/L (6-35); Albumin Level 3.3 g/dL (3.5-5.1); Alkaline Phosphatase 86 U/L (38-126); Anion Gap 5 mmol/L (4-12); Aspartate Amino Transferase 19 U/L (14-36); Bilirubin,Total 1.3 mg/dL (0.2-1.3); Blood Urea Nitrogen 27 mg/dL (7-17); Calcium 8.9 mg/dL (8.4-10.2); Carbon Dioxide 31 mmol/L (22-30); Chloride 102 mmol/L (98-107); Estimated CRCL calculation 33 ml/min; Estimated Glomerular Filt Rate 56; Glucose 85 mg/dL (65-110); Potassium 4.2 mmol/L (3.4-5.0); Sodium 138 mmol/L (137-145)
[2024-07-26 09:25] VITALS: PULSE 62
[2024-07-26] MEDS: AMIODARONE HCL 200 MG TABLET PO (09:25)
[2024-07-26] MEDS: GABAPENTIN 300 MG CAPSULE PO ×2 (09:25→17:56)
[2024-07-26] MEDS: FERROUS SULFATE 325 MG TABLET DR PO ×2 (09:25→17:56)
[2024-07-26] MEDS: CARBIDOPA/LEVODOPA 25/100 MG TABLET 3 TABLET PO ×3 (09:26→17:58)
[2024-07-26] MEDS: traMADol/ACETAMINOPHEN (*CRX) (ULTRACET) 37.5/325 MG TABLET 1 TAB PO ×2 (09:30→17:50)
--- NOTE | 2024-07-26 11:46 | P.PNIM_ITS ---
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 Status: Acute Assessment and Plan: Patient family reports previous history of left facial Neuralgia currently pain is intense and she is unable to eat and has been withdrawn * currently on gabapentin not working may need to try an Tegretol, Junior will wait on Neurology input * add baclofen * MRI pending * Neurology consulted recommendations appreciated * CT facial with no acute findings 07/26/2024: * MRI with no significant findings * VSV PCR for possible internal shingles * start acyclovir IV pending results if negative will treat left eye as bacterial conjunctivitis (2) Acute kidney injury: Code(s): N17.9 - Acute kidney failure, unspecified Status: Acute Assessment and Plan: Patient with poor oral intake due to severe pain * Cr mildly elevated POA * improving with IV fluids (3) Microcytic anemia: Code(s): D50.9 - Iron deficiency anemia, unspecified Status: Acute Assessment and Plan: Patient with poor oral intake was likely secondary to poor protein intake and malnutrition but patient was having multiple epistaxis and her eliquis was stopped * Hgb stable 8.4 * Iron panel pending * will start iron supplements 325 BID * transfuse PRBC if hgb <7.0 (4) Paroxysmal atrial fibrillation: Code(s): I48.0 - Paroxysmal atrial fibrillation Status: Acute Assessment and Plan: * Resumed amiodarone * Eliquis has been discontinued due to continued nosebleeds (5) Parkinson disease: Qualifiers: Dyskinesia presence: unspecified whether dyskinesia Fluctuating manifestations: unspecified whether manifestations fluctuate Qualified Code(s): G20.A1 - Parkinson's disease without dyskinesia, without mention of fluctuations Code(s): G20 - Parkinson's disease Status: Acute Assessment and Plan: * resume carbidopa levodopa * PT/OT (6) Adult failure to thrive: Code(s): R62.7 - Adult failure to thrive Status: Acute Assessment and Plan: Patient with reported poor oral intake and withdrawing at her assisted living possibly secondary to worsening severe LT sided facial pain and chronic conditions of Parkison's and Dementia * Barium swallow and speech consulted * add protein shakes with each meal (7) Heart failure with preserved ejection fraction (HFpEF, >= 50%): Qualifiers: Heart failure chronicity: acute on chronic Qualified Code(s): I50.33 - Acute on chronic diastolic (congestive) heart failure Code(s): I50.30 - Unspecified diastolic (congestive) heart failure Status: Acute Assessment and Plan: * Lasix on hold patient dehydrated on admission due to poor oral intake Plan Code status: Full code per patient DVT prophylaxis: SCD Stress ulcer prophylaxis: NA PT/OT notes: PT/OT recommend SNF Disposition: patient was admitted to the medical unit for further evaluation and treatment of failure to thrive likely secondary to severe left facial pain and anemia. neurology has been consulted for further recommendations initiated baclofen will also treat for possible internal shingles. patient currently resides at assisted living PT/OT recommended SNF currently waiting on acceptance and authorization. Time Spent With Patient Time with patient: 15 - 25 minutes Subjective Date/time seen: 07/26/24 11:46 Interval history: Patient is a 88-year old female admitted for further evaluation facial pain, failure to thrive and anemia 07/26/24: Patient still with moderate left sided nerve pain a little better then the day before. Reports it is difficulty to eat and talk. She also state some blurring vision to left eye on assessment she has erythema and scant drainage, states her eye has been watery due to the pain. MRI with no significant findings. Will get VSV PCR and start on antiviral for possible internal shingles. Review of Systems Review of Systems: 12 systems were reviewed and are negativ e except for as per HPI. All systems reviewed & are unremarkable except as noted in HPI and below Exam Const: General: comfortable and no acute distress HENMT: Mouth: Yes moist mucous membranes Eyes: Pupils: Equal, round and reactive pupils present Other: Erythema to Left eye with scant drainage Neck: Neck: supple and no JVD Resp: Effort & Inspection: normal respiratory effort Auscultation: clear to auscultation bilaterally Cardio: Rate: tachycardic Rhythm: regular rhythm GI: Auscultation: normal bowel sounds Skin: General skin exam: normal color Neuro: Cranial nerves: Yes Equal, round and reactive pupils present Speech: normal speech Extrem: General: normal to inspection Psych: Mental Status: mental status grossly normal Objective Data Vital Signs Vital Signs: Vital Signs - 24 hr 07/25/24 14:00 07/25/24 20:36 07/26/24 06:32 Temperature 97.6 F 97.6 F 97.8 F Pulse Rate 109 H 60 62 Respiratory Rate 18 16 16 Blood Pressure 130/64 128/58 L 130/58 L Pulse Oximetry 97 97 98 Oxygen Delivery 07/26/24 09:20 07/26/24 09:25 07/26/24 10:58 Temperature Pulse Rate 62 Respiratory Rate Blood Pressure Pulse Oximetry Oxygen Delivery Room Air Room Air Intake/Output Intake/Output: Intake & Output 07/23/24 07/24/24 07/25/24 07/26/24 23:59 23:59 23:59 23:59 Intake Total 1100 1290 390 Output Total 400 450 Balance 1100 890 -60 Meds/Results Medications: Active Medications Generic Name Dose Route Start Last Admin Trade Name Freq PRN Reason Stop Dose Admin Acetaminophen 650 mg 07/24/24 15:47 07/25/24 10:39 Acetaminophen 325 Mg Tablet PO 650 mg Q4H PRN Administration Mild Pain (1-3) or Fever Amiodarone HCl 200 mg 07/25/24 09:00 07/26/24 09:25 Amiodarone Hcl 200 Mg Tablet PO 200 mg DAILY LIZA Administration Baclofen 10 mg 07/25/24 14:00 07/26/24 06:44 Baclofen 10 Mg Tablet PO 10 mg Q8HR LIZA Administration Carbidopa/Levodopa 3 tablet 07/25/24 08:00 07/26/24 09:26 Carbidopa/Levodopa 25/100 Mg Tablet PO 3 tablet 0800,1200,1800 LIZA Administration Carbidopa/Levodopa 2 tablet 07/24/24 21:50 07/25/24 20:34 Carbidopa/Levodopa 25/100 Mg Cr Tablet PO 2 tablet QHS LIZA Administration Dextrose 12.5 gm 07/24/24 15:48 Dextrose 50% 25 Gm/50 Ml Syringe IV PUSH PRN PRN Hypoglycemia Protocol Docusate Sodium 100 mg 07/24/24 21:48 Docusate Sodium 100 Mg Capsule PO HS PRN constipation Ferrous Sulfate 325 mg 07/25/24 09:00 07/26/24 09:25 Ferrous Sulfate [address] PO 325 mg BID LIZA Administration Gabapentin 300 mg 07/24/24 20:00 07/26/24 09:25 Gabapentin 300 Mg Capsule PO 300 mg BID LIZA Administration Glucagon 1 mg 07/24/24 15:48 Glucagon For Inj 1 Mg Vial IM PRN PRN Hypoglycemia Protocol Glucose 15 gm 07/24/24 15:48 Glucose Oral Gel 15 Gm Of Glucse In 37.5 Gm Tube PO PRN PRN Hypoglycemia Protocol Dextrose 1,000 mls @ 100 mls/hr 07/24/24 15:48 Dextrose 5% 1,000 Ml IVPB PRN PRN Hypoglycemia Protocol Levothyroxine Sodium 12.5 mcg 07/26/24 06:30 07/26/24 06:44 Levothyroxine Sodium 12.5 Mcg Tablet PO 12.5 mcg DAILY@0630 LIZA Administration Mirtazapine 15 mg 07/24/24 21:55 07/25/24 20:34 Mirtazapine 15 Mg Tablet PO 15 mg QHS LIZA Administration Tramadol/Acetaminophen 1 tab 07/25/24 11:40 07/26/24 09:30 Tramadol/Acetaminophen (*Crx) (Ultracet) 37.5/325 Mg Tablet PO 1 tab Q4H PRN Administration Pain Rated 4-6 Radiology Results: ITS Impressions Face CT 07/24/24 14:59 IMPRESSION: 1. No specific etiology for the patient's symptoms. Modified Barium Swallow 07/25/24 11:47 IMPRESSION: Flash/shallow penetration without aspiration Please refer to speech pathologist report for additional detail. Brain MRI 07/25/24 13:59 IMPRESSION: 1. Moderate nonspecific cerebral white matter disease, which likely represents chronic small vessel ischemic disease, mildly worsened from 01/27/2017. Labs Labs: Laboratory Results - last 24 hr 07/25/24 07/26/24 04:25 08:16 WBC 7.5 RBC 4.22 Hgb 8.9 L Hct 29.0 L MCV 68.7 L MCH 21.1 L MCHC 30.7 L RDW 18.5 H Plt Count 219 MPV 9.6 % Immature Plt Fraction 2.9 Sodium 138 Potassium 4.2 Chloride 102 Carbon Dioxide 31 H Anion Gap 5 BUN 27 H Creatinine 0.94 Estim Creat Clear Calc 33 Estimated GFR 56 L Glucose 85 Calcium 8.9 Total Bilirubin 1.3 AST 19 ALT 7 Alkaline Phosphatase 86 C-Reactive Protein 0.7 Total Protein 6.0 L Albumin 3.3 L Vitamin D 25-Hydroxy 25.0 Quality VTE Prophylaxis VTE prophylaxis: mechanical ordered -Patient's previous records reviewed on admission -ER notes reviewed in detail on admission -discussed all findings and current treatment plan with patient/Family/POA -Consultations reviewed for recommendations -Patient's disposition for safe discharge discussed with showcase trimmer Dictation performed by [employer] direct speech recognition software, therefore editorial project manager variants and typographical errors may occur. Hospitalist MIPS Advance Care Plan I have confirmed that the patient's Advanced Care Plan is present, code status is documented, or surrogate decision maker is listed in patient medical record.: Yes Medication Reconciliation I have utilized all available resources to obtain, update and review the patients current medications (includes all prescriptions, OTC, herbals, cannabis, and nutritional supplements).: Yes The patient is not eligible for med reconciliation; the patient is in a emergent medical situation where delaying treatment would jeopardize the patients health.: No
--- NOTE | 2024-07-26 12:23 | P.CDI_ITS ---
CDI Query Clarification Request BMI: 21.4 Nutritional Diagnostic Statement: Please refer to the comprehensive nutrition assessment for further information. If you agree with diagnosis of Severe protein calorie malnutrition related to chronic pain, loss of appetite as evidenced by intakes <75% needs >1 month; weight loss -12%/2 months; severe muscle wasting and fat loss. Please specify severity if known: * Mild * Moderate * Severe * Other/Unknown <Mechelle Chavarria RN - Last Filed: 07/26/24 12:23> Clarified Diagnosis Clarified Diagnosis: Severe protein calorie malnutrition related to chronic pain, loss of appetite as evidenced by intakes <75% needs >1 month; weight loss -12%/2 months; severe muscle wasting and fat loss <Mili Spencer APRN - Last Filed: 07/26/24 13:26>
[2024-07-26 14:00] VITALS: BP 131/51; PULSE 69; RESP 20; TEMP 36.4; O2SAT 100
[2024-07-26] MEDS: WATER IVPB (16:02)
[2024-07-26] MEDS: DEXTROSE 5% IVPB (16:02)
[2024-07-26] MEDS: ACYCLOVIR SODIUM IVPB (16:02)
[2024-07-26 21:13] VITALS: BP 106/67; PULSE 61; RESP 16; TEMP 36.6; O2SAT 98
[2024-07-26] MEDS: CARBIDOPA/LEVODOPA 25/100 MG CR TABLET 2 TABLET PO (21:16)
[2024-07-26] MEDS: MIRTAZAPINE 15 MG TABLET PO (21:16)
[2024-07-27] MEDS: DEXTROSE 5% IVPB (03:21)
[2024-07-27] MEDS: ACYCLOVIR SODIUM IVPB (03:21)
[2024-07-27] MEDS: WATER IVPB (03:21)
[2024-07-27 04:50] VITALS: BP 118/55; PULSE 69; RESP 16; TEMP 36.8; O2SAT 93
[2024-07-27] MEDS: BACLOFEN 10 MG TABLET PO (06:08)
[2024-07-27] MEDS: LEVOTHYROXINE SODIUM 12.5 MCG TABLET PO (06:08)
--- NOTE | 2024-07-27 08:27 | P.PNIM_ITS ---
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 Status: Acute Assessment and Plan: Patient family reports previous history of left facial Neuralgia currently pain is intense and she is unable to eat and has been withdrawn * currently on gabapentin not working may need to try an Tegretol, Junior will wait on Neurology input * add baclofen * MRI pending * Neurology consulted recommendations appreciated * CT facial with no acute findings 07/26/2024: * MRI with no significant findings * VSV PCR for possible internal shingles * start acyclovir IV pending results if negative will treat left eye as bacterial conjunctivitis 07/27/24 * Will hold acyclovir and baclofen due to change in mental status somnolence * VZV PCR pending * IV fluids * CT head with no acute findings * Started ABX eye drops for possible bacterial conjunctivitis (2) Acute kidney injury: Code(s): N17.9 - Acute kidney failure, unspecified Status: Acute Assessment and Plan: Patient with poor oral intake due to severe pain * Cr mildly elevated POA * improving with IV fluids RESOLVED (3) Microcytic anemia: Code(s): D50.9 - Iron deficiency anemia, unspecified Status: Acute Assessment and Plan: Patient with poor oral intake was likely secondary to poor protein intake and malnutrition but patient was having multiple epistaxis and her eliquis was stopped * Hgb stable 8.4 * Iron panel pending * will start iron supplements 325 BID * transfuse PRBC if hgb <7.0 (4) Paroxysmal atrial fibrillation: Code(s): I48.0 - Paroxysmal atrial fibrillation Status: Acute Assessment and Plan: * Resumed amiodarone * Eliquis has been discontinued due to continued nosebleeds (5) Parkinson disease: Qualifiers: Dyskinesia presence: unspecified whether dyskinesia Fluctuating manifestations: unspecified whether manifestations fluctuate Qualified Code(s): G20.A1 - Parkinson's disease without dyskinesia, without mention of fluctuations Code(s): G20 - Parkinson's disease Status: Acute Assessment and Plan: * resume carbidopa levodopa * PT/OT (6) Adult failure to thrive: Code(s): R62.7 - Adult failure to thrive Status: Acute Assessment and Plan: Patient with reported poor oral intake and withdrawing at her assisted living possibly secondary to worsening severe LT sided facial pain and chronic conditions of Parkison's and Dementia * Barium swallow and speech consulted * add protein shakes with each meal (7) Heart failure with preserved ejection fraction (HFpEF, >= 50%): Qualifiers: Heart failure chronicity: acute on chronic Qualified Code(s): I50.33 - Acute on chronic diastolic (congestive) heart failure Code(s): I50.30 - Unspecified diastolic (congestive) heart failure Status: Acute Assessment and Plan: * Lasix on hold patient dehydrated on admission due to poor oral intake Plan Code status: Full code per patient DVT prophylaxis: SCD Stress ulcer prophylaxis: NA PT/OT notes: PT/OT recommend SNF Disposition: patient was admitted to the medical unit for further evaluation and treatment of failure to thrive likely secondary to severe left facial pain and anemia. neurology has been consulted for further recommendations initiated baclofen will also treat for possible internal shingles. Holding medications due to mental changes. patient currently resides at assisted living PT/OT recommended SNF currently waiting on acceptance and authorization. Time Spent With Patient Time with patient: 15 - 25 minutes Subjective Date/time seen: 07/27/24 08:27 Interval history: Patient is a 88-year old female admitted for further evaluation facial pain, failure to thrive and anemia 07/27/24: Patient more somnolent today alert and oriented x2 was able to answer some questions appropriately but unable to tell me her date of . strength was equal bilateral upper and lower extremities stat CT head due to mental changes will hold IV acyclovir and baclofen in case medication induced. Patient denied CP, SOB, dizziness and reported Left facial pain with some improvement. Review of Systems Review of Systems: 12 systems were reviewed and are negativ e except for as per HPI. All systems reviewed & are unremarkable except as noted in HPI and below Exam Const: General: comfortable and no acute distress Other: somnolent alert oriented x2 with intermittent confusion HENMT: Mouth: Yes moist mucous membranes Eyes: Pupils: Equal, round and reactive pupils present Other: Erythema to Left eye with scant drainage Neck: Neck: supple and no JVD Resp: Effort & Inspection: normal respiratory effort Auscultation: clear to auscultation bilaterally Cardio: Rate: tachycardic Rhythm: regular rhythm GI: Auscultation: normal bowel sounds Skin: General skin exam: normal color Neuro: Cranial nerves: Yes Equal, round and reactive pupils present Speech: normal speech Extrem: General: normal to inspection Psych: Mental Status: mental status grossly normal Objective Data Vital Signs Vital Signs: Vital Signs - 24 hr 07/26/24 09:20 07/26/24 09:25 07/26/24 09:30 Temperature Pulse Rate 62 Respiratory Rate Blood Pressure Pulse Oximetry Oxygen Delivery Room Air Room Air 07/26/24 10:58 07/26/24 14:00 07/26/24 20:00 Temperature 97.5 F L Pulse Rate 69 Respiratory Rate 20 Blood Pressure 131/51 L Pulse Oximetry 100 Oxygen Delivery Room Air Room Air 07/26/24 21:13 07/27/24 04:50 Temperature 97.9 F 98.2 F Pulse Rate 61 69 Respiratory Rate 16 16 Blood Pressure 106/67 118/55 L Pulse Oximetry 98 93 Oxygen Delivery Intake/Output Intake/Output: Intake & Output 07/24/24 07/25/24 07/26/24 07/27/24 23:59 23:59 23:59 23:59 Intake Total 1100 1290 1331.7 150 Output Total 400 850 200 Balance 1100 890 481.7 -50 Meds/Results Medications: Active Medications Generic Name Dose Route Start Last Admin Trade Name Freq PRN Reason Stop Dose Admin Acetaminophen 650 mg 07/24/24 15:47 07/25/24 10:39 Acetaminophen 325 Mg Tablet PO 650 mg Q4H PRN Administration Mild Pain (1-3) or Fever Amiodarone HCl 200 mg 07/25/24 09:00 07/26/24 09:25 Amiodarone Hcl 200 Mg Tablet PO 200 mg DAILY LIZA Administration Baclofen 10 mg 07/25/24 14:00 07/27/24 06:08 Baclofen 10 Mg Tablet PO 10 mg Q8HR LIZA Administration Carbidopa/Levodopa 3 tablet 07/25/24 08:00 07/26/24 17:58 Carbidopa/Levodopa 25/100 Mg Tablet PO 3 tablet 0800,1200,1800 LIZA Administration Carbidopa/Levodopa 2 tablet 07/24/24 21:50 07/26/24 21:16 Carbidopa/Levodopa 25/100 Mg Cr Tablet PO 2 tablet QHS LIZA Administration Dextrose 12.5 gm 07/24/24 15:48 Dextrose 50% 25 Gm/50 Ml Syringe IV PUSH PRN PRN Hypoglycemia Protocol Docusate Sodium 100 mg 07/24/24 21:48 Docusate Sodium 100 Mg Capsule PO HS PRN constipation Ferrous Sulfate 325 mg 07/25/24 09:00 07/26/24 17:56 Ferrous Sulfate [address] PO 325 mg BID LIZA Administration Gabapentin 300 mg 07/24/24 20:00 07/26/24 17:56 Gabapentin 300 Mg Capsule PO 300 mg BID LIZA Administration Glucagon 1 mg 07/24/24 15:48 Glucagon For Inj 1 Mg Vial IM PRN PRN Hypoglycemia Protocol Glucose 15 gm 07/24/24 15:48 Glucose Oral Gel 15 Gm Of Glucse In 37.5 Gm Tube PO PRN PRN Hypoglycemia Protocol Dextrose 1,000 mls @ 100 mls/hr 07/24/24 15:48 Dextrose 5% 1,000 Ml IVPB PRN PRN Hypoglycemia Protocol Acyclovir Sodium 585 mg/ 261.7 mls @ 250 mls/hr 07/26/24 15:00 07/27/24 03:21 Dextrose IVPB 08/02/24 04:03 250 mls/hr Q12H LIZA Administration Levothyroxine Sodium 12.5 mcg 07/26/24 06:30 07/27/24 06:08 Levothyroxine Sodium 12.5 Mcg Tablet PO 12.5 mcg DAILY@0630 LIZA Administration Mirtazapine 15 mg 07/24/24 21:55 07/26/24 21:16 Mirtazapine 15 Mg Tablet PO 15 mg QHS LIZA Administration Tramadol/Acetaminophen 1 tab 07/25/24 11:40 07/26/24 17:50 Tramadol/Acetaminophen (*Crx) (Ultracet) 37.5/325 Mg Tablet PO 1 tab Q4H PRN Administration Pain Rated 4-6 Radiology Results: ITS Impressions Face CT 07/24/24 14:59 IMPRESSION: 1. No specific etiology for the patient's symptoms. Modified Barium Swallow 07/25/24 11:47 IMPRESSION: Flash/shallow penetration without aspiration Please refer to speech pathologist report for additional detail. Brain MRI 07/25/24 13:59 IMPRESSION: 1. Moderate nonspecific cerebral white matter disease, which likely represents chronic small vessel ischemic disease, mildly worsened from 01/27/2017. Labs Labs: Laboratory Results - last 24 hr 07/26/24 08:16 WBC 7.5 RBC 4.22 Hgb 8.9 L Hct 29.0 L MCV 68.7 L MCH 21.1 L MCHC 30.7 L RDW 18.5 H Plt Count 219 MPV 9.6 % Immature Plt Fraction 2.9 Sodium 138 Potassium 4.2 Chloride 102 Carbon Dioxide 31 H Anion Gap 5 BUN 27 H Creatinine 0.94 Estim Creat Clear Calc 33 Estimated GFR 56 L Glucose 85 Calcium 8.9 Total Bilirubin 1.3 AST 19 ALT 7 Alkaline Phosphatase 86 Total Protein 6.0 L Albumin 3.3 L Quality VTE Prophylaxis VTE prophylaxis: mechanical ordered -Patient's previous records reviewed on admission -ER notes reviewed in detail on admission -discussed all findings and current treatment plan with patient/Family/POA -Consultations reviewed for recommendations -Patient's disposition for safe discharge discussed with case preparer and liner Dictation performed by [employer] direct speech recognition software, therefore deli clerk variants and typographical errors may occur. Hospitalist MIPS Advance Care Plan I have confirmed that the patient's Advanced Care Plan is present, code status is documented, or surrogate decision maker is listed in patient medical record.: Yes Medication Reconciliation I have utilized all available resources to obtain, update and review the patients current medications (includes all prescriptions, OTC, herbals, cannabis, and nutritional supplements).: Yes The patient is not eligible for med reconciliation; the patient is in a emergent medical situation where delaying treatment would jeopardize the patients health.: No
[2024-07-27 08:46] LABS: Hematocrit 30.3 % (37.0-47.0); Hemoglobin 9.4 g/dL (12.0-15.0); Mean Corpuscular Hemoglobin 21.3 pg (26-34); Mean Corpuscular Volume 68.7 fl (80-100); Mean Platelet Volume 9.8 fl (7.4-10.4); Platelet Count Result 236 k/mm3 (150-375); Red Blood Count 4.41 M/mm3 (4.2-5.4); Red Cell Distribution Width 18.7 % (11.5-14.5)
[2024-07-27 09:31] VITALS: PULSE 61
[2024-07-27] MEDS: AMIODARONE HCL 200 MG TABLET PO (09:31)
[2024-07-27] MEDS: CARBIDOPA/LEVODOPA 25/100 MG TABLET 3 TABLET PO ×2 (09:34→13:25)
[2024-07-27] MEDS: GABAPENTIN 300 MG CAPSULE PO (09:34)
[2024-07-27] MEDS: FERROUS SULFATE 325 MG TABLET DR PO (09:34)
[2024-07-27 10:47] LABS: Alanine Aminotransferase 7 U/L (6-35); Albumin Level 3.3 g/dL (3.5-5.1); Alkaline Phosphatase 87 U/L (38-126); Anion Gap 4 mmol/L (4-12); Aspartate Amino Transferase 19 U/L (14-36); Bilirubin,Total 1.3 mg/dL (0.2-1.3); Blood Urea Nitrogen 27 mg/dL (7-17); Carbon Dioxide 31 mmol/L (22-30); Chloride 103 mmol/L (98-107); Estimated CRCL calculation 37 ml/min; Estimated Glomerular Filt Rate > 60; Glucose 91 mg/dL (65-110); Potassium 4.1 mmol/L (3.4-5.0); Sodium 138 mmol/L (137-145)
--- NOTE | 2024-07-27 11:42 | PCPTNOTE ---
Attempted to see patient for PT, however patient having more confusion this date and refused to participate with PT. Patient had eyes closed upon entering, patient able to open her eyes with cues, when asked if she wants to work with PT, patient stated no and closed eyes. Attempted to encouraged patient to participate with PT, but patient kept eyes closed and ignored PT.
[2024-07-27] MEDS: LACTATED RINGERS 1,000 ML 75 ML IV CONT (13:24)
[2024-07-27] MEDS: POLYMYXIN/TRIMETHOPRIM OPHTH 10 ML DROPS 1 DROP LEFT EYE ×3 (13:25→20:14)
[2024-07-27] MEDS: traMADol/ACETAMINOPHEN (*CRX) (ULTRACET) 37.5/325 MG TABLET 1 TAB PO (13:29)
[2024-07-27 13:45] VITALS: BP 136/55; PULSE 59; RESP 16; TEMP 36.3; O2SAT 100
[2024-07-27] MEDS: MIRTAZAPINE 15 MG TABLET PO (20:15)
[2024-07-27] MEDS: CARBIDOPA/LEVODOPA 25/100 MG CR TABLET 2 TABLET PO (20:15)
[2024-07-27 20:19] VITALS: BP 130/60; PULSE 60; RESP 16; TEMP 36.6; O2SAT 100
[2024-07-28] MEDS: LACTATED RINGERS 1,000 ML 75 ML IV CONT (02:47)
[2024-07-28 05:21] LABS: Hematocrit 29.1 % (37.0-47.0); Immature Platelet Fraction Pct 2.4 % (0.9-11.2); Mean Corpuscular HGB Conc 30.9 g/dl (32-36); Mean Corpuscular Hemoglobin 21.1 pg (26-34); Mean Corpuscular Volume 68.3 fl (80-100); Mean Platelet Volume 9.6 fl (7.4-10.4); Platelet Count Result 193 k/mm3 (150-375); Red Blood Count 4.26 M/mm3 (4.2-5.4); Red Cell Distribution Width 18.5 % (11.5-14.5); White Blood Count 5.9 K/mm3 (4.5-10.0)
[2024-07-28 05:24] VITALS: BP 140/52; PULSE 62; RESP 18; TEMP 36.5; O2SAT 98
[2024-07-28 05:35] LABS: Alanine Aminotransferase 6 U/L (6-35); Albumin Level 3.1 g/dL (3.5-5.1); Alkaline Phosphatase 86 U/L (38-126); Anion Gap 5 mmol/L (4-12); Aspartate Amino Transferase 19 U/L (14-36); Bilirubin,Total 1.4 mg/dL (0.2-1.3); Blood Urea Nitrogen 21 mg/dL (7-17); Calcium 8.8 mg/dL (8.4-10.2); Carbon Dioxide 27 mmol/L (22-30); Chloride 106 mmol/L (98-107); Estimated CRCL calculation 43 ml/min; Estimated Glomerular Filt Rate > 60; Glucose 85 mg/dL (65-110); Potassium 4.5 mmol/L (3.4-5.0); Sodium 138 mmol/L (137-145)
[2024-07-28] MEDS: LEVOTHYROXINE SODIUM 12.5 MCG TABLET PO (05:55)
[2024-07-28] MEDS: POLYMYXIN/TRIMETHOPRIM OPHTH 10 ML DROPS 1 DROP LEFT EYE ×5 (05:57→20:52)
--- NOTE | 2024-07-28 07:51 | P.PNIM_ITS ---
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 Status: Acute Assessment and Plan: Patient family reports previous history of left facial Neuralgia currently pain is intense and she is unable to eat and has been withdrawn * currently on gabapentin not working may need to try an Tegretol, Junior will wait on Neurology input * add baclofen * MRI pending * Neurology consulted recommendations appreciated * CT facial with no acute findings 07/26/2024: * MRI with no significant findings * VSV PCR for possible internal shingles * start acyclovir IV pending results if negative will treat left eye as bacterial conjunctivitis 07/27/24 * Will hold acyclovir and baclofen due to change in mental status somnolence * VZV PCR pending * IV fluids * CT head with no acute findings * Started ABX eye drops for possible bacterial conjunctivitis 07/28: * D/C Baclofen * D/C fluids * still holding acyclovir PCR pending * Jaw rigidity likely contributing to pain (2) Acute kidney injury: Code(s): N17.9 - Acute kidney failure, unspecified Status: Acute Assessment and Plan: Patient with poor oral intake due to severe pain * Cr mildly elevated POA * improving with IV fluids RESOLVED (3) Microcytic anemia: Code(s): D50.9 - Iron deficiency anemia, unspecified Status: Acute Assessment and Plan: Patient with poor oral intake was likely secondary to poor protein intake and malnutrition but patient was having multiple epistaxis and her eliquis was stopped * Hgb stable 8.4 * Iron panel pending * will start iron supplements 325 BID * transfuse PRBC if hgb <7.0 (4) Paroxysmal atrial fibrillation: Code(s): I48.0 - Paroxysmal atrial fibrillation Status: Acute Assessment and Plan: * Resumed amiodarone * Eliquis has been discontinued due to continued nosebleeds (5) Parkinson disease: Qualifiers: Dyskinesia presence: unspecified whether dyskinesia Fluctuating manifestations: unspecified whether manifestations fluctuate Qualified Code(s): G20.A1 - Parkinson's disease without dyskinesia, without mention of fluctuations Code(s): G20 - Parkinson's disease Status: Acute Assessment and Plan: * resume carbidopa levodopa * PT/OT (6) Adult failure to thrive: Code(s): R62.7 - Adult failure to thrive Status: Acute Assessment and Plan: Patient with reported poor oral intake and withdrawing at her assisted living possibly secondary to worsening severe LT sided facial pain and chronic conditions of Parkison's and Dementia * Barium swallow and speech consulted * add protein shakes with each meal * having mild tremors and jaw rigidity likely progression of disease * continue with carbidopa levodopa * PT/OT/ST * In follow-up with her neurologist outpatient (7) Heart failure with preserved ejection fraction (HFpEF, >= 50%): Qualifiers: Heart failure chronicity: acute on chronic Qualified Code(s): I50.33 - Acute on chronic diastolic (congestive) heart failure Code(s): I50.30 - Unspecified diastolic (congestive) heart failure Status: Acute Assessment and Plan: * Lasix on hold patient dehydrated on admission due to poor oral intake 07/28/24: * Resumed Lasix to daily from BID Plan Code status: Full code per patient DVT prophylaxis: SCD Stress ulcer prophylaxis: NA PT/OT notes: PT/OT recommend SNF Disposition: patient was admitted to the medical unit for further evaluation and treatment of failure to thrive likely secondary to severe left facial pain and anemia. neurology has been consulted for further recommendations initiated baclofen will also treat for possible internal shingles. Holding medications due to mental changes. patient currently resides at assisted living PT/OT recommended SNF currently waiting on acceptance and authorization. spoke with Daughter Tara regarding potential for intermediate care due to progression of Parkinson. Time Spent With Patient Time with patient: 15 - 25 minutes Subjective Date/time seen: 07/28/24 07:51 Interval history: Patient is a 88-year old female admitted for further evaluation facial pain, failure to thrive and anemia 07/28/24: Patient more alert today follow commands, Patient responded appropriately to questions states facial pain with mild improvement. Patient had jaw rigidity yesterday likely from her Parkinson's disease could be contributing to her facial pain. Appears patient is having progression of her Parkinson tremors noted. Review of Systems Review of Systems: 12 systems were reviewed and are negativ e except for as per HPI. All systems reviewed & are unremarkable except as noted in HPI and below Exam Narrative: Mild tremors and Jaw rigidity Const: General: comfortable and no acute distress Other: somnolent alert oriented x2 with intermittent confusion HENMT: Mouth: Yes moist mucous membranes Eyes: Pupils: Equal, round and reactive pupils present Other: Erythema to Left eye with scant drainage Neck: Neck: supple and no JVD Resp: Effort & Inspection: normal respiratory effort Auscultation: clear to auscultation bilaterally Cardio: Rate: tachycardic Rhythm: regular rhythm GI: Auscultation: normal bowel sounds Skin: General skin exam: normal color Neuro: Cranial nerves: Yes Equal, round and reactive pupils present Speech: normal speech Extrem: General: normal to inspection Psych: Mental Status: mental status grossly normal Objective Data Vital Signs Vital Signs: Vital Signs - 24 hr 07/27/24 09:30 07/27/24 09:31 07/27/24 13:45 Temperature 97.4 F L Pulse Rate 61 59 L Respiratory Rate 16 Blood Pressure 136/55 L Pulse Oximetry 100 Oxygen Delivery Room Air 07/27/24 20:19 07/28/24 05:24 Temperature 97.8 F 97.7 F Pulse Rate 60 62 Respiratory Rate 16 18 Blood Pressure 130/60 140/52 L Pulse Oximetry 100 98 Oxygen Delivery Intake/Output Intake/Output: Intake & Output 07/25/24 07/26/24 07/27/24 07/28/24 23:59 23:59 23:59 23:59 Intake Total 1290 1331.7 390 1050 Output Total 400 850 925 600 Balance 890 481.7 -535 450 Meds/Results Medications: Active Medications Generic Name Dose Route Start Last Admin Trade Name Freq PRN Reason Stop Dose Admin Acetaminophen 650 mg 07/24/24 15:47 07/25/24 10:39 Acetaminophen 325 Mg Tablet PO 650 mg Q4H PRN Administration Mild Pain (1-3) or Fever Amiodarone HCl 200 mg 07/25/24 09:00 07/27/24 09:31 Amiodarone Hcl 200 Mg Tablet PO 200 mg DAILY LIZA Administration Baclofen 10 mg 07/25/24 14:00 07/28/24 05:07 Baclofen 10 Mg Tablet PO Not Given Q8HR LIZA Carbidopa/Levodopa 3 tablet 07/25/24 08:00 07/27/24 17:45 Carbidopa/Levodopa 25/100 Mg Tablet PO Not Given 0800,1200,1800 LIZA Carbidopa/Levodopa 2 tablet 07/24/24 21:50 07/27/24 20:15 Carbidopa/Levodopa 25/100 Mg Cr Tablet PO 2 tablet QHS LIZA Administration Dextrose 12.5 gm 07/24/24 15:48 Dextrose 50% 25 Gm/50 Ml Syringe IV PUSH PRN PRN Hypoglycemia Protocol Docusate Sodium 100 mg 07/24/24 21:48 Docusate Sodium 100 Mg Capsule PO HS PRN constipation Ferrous Sulfate 325 mg 07/25/24 09:00 07/27/24 17:45 Ferrous Sulfate [address] PO Not Given BID LIZA Gabapentin 300 mg 07/24/24 20:00 07/27/24 17:45 Gabapentin 300 Mg Capsule PO Not Given BID LIZA Glucagon 1 mg 07/24/24 15:48 Glucagon For Inj 1 Mg Vial IM PRN PRN Hypoglycemia Protocol Glucose 15 gm 07/24/24 15:48 Glucose Oral Gel 15 Gm Of Glucse In 37.5 Gm Tube PO PRN PRN Hypoglycemia Protocol Dextrose 1,000 mls @ 100 mls/hr 07/24/24 15:48 Dextrose 5% 1,000 Ml IVPB PRN PRN Hypoglycemia Protocol Acyclovir Sodium 585 mg/ 261.7 mls @ 250 mls/hr 07/26/24 15:00 07/27/24 03:21 Dextrose IVPB 250 mls/hr Q12H LIZA Administration Lactated Ringer's 1,000 mls @ 75 mls/hr 07/27/24 09:50 07/28/24 02:47 Lr - Lactated Ringers Iv IV CONT 75 mls/hr .[id number] LIZA Administration Levothyroxine Sodium 12.5 mcg 07/26/24 06:30 07/28/24 05:55 Levothyroxine Sodium 12.5 Mcg Tablet PO 12.5 mcg DAILY@0630 LIZA Administration Mirtazapine 15 mg 07/24/24 21:55 07/27/24 20:15 Mirtazapine 15 Mg Tablet PO 15 mg QHS LIZA Administration Polymyxin/Trimethoprim Sulfate 1 drop 07/27/24 13:00 07/28/24 05:57 Polymyxin/Trimethoprim Ophth 10 Ml Drops LEFT EYE 1 drop Q4HWA LIZA Administration Tramadol/Acetaminophen 1 tab 07/25/24 11:40 07/27/24 13:29 Tramadol/Acetaminophen (*Crx) (Ultracet) 37.5/325 Mg Tablet PO 1 tab Q4H PRN Administration Pain Rated 4-6 Radiology Results: ITS Impressions Face CT 07/24/24 14:59 IMPRESSION: 1. No specific etiology for the patient's symptoms. Modified Barium Swallow 07/25/24 11:47 IMPRESSION: Flash/shallow penetration without aspiration Please refer to speech pathologist report for additional detail. Brain MRI 07/25/24 13:59 IMPRESSION: 1. Moderate nonspecific cerebral white matter disease, which likely represents chronic small vessel ischemic disease, mildly worsened from 01/27/2017. Head CT 07/27/24 10:40 Impression: No intracranial hemorrhage, mass, or acute infarct. Atrophy and chronic white matter changes, as above. Labs Labs: Laboratory Results - last 24 hr 07/27/24 07/28/24 08:37 05:06 WBC 8.0 5.9 RBC 4.41 4.26 Hgb 9.4 L 9.0 L Hct 30.3 L 29.1 L MCV 68.7 L 68.3 L MCH 21.3 L 21.1 L MCHC 31.0 L 30.9 L RDW 18.7 H 18.5 H Plt Count 236 193 MPV 9.8 9.6 % Immature Plt Fraction 2.4 Sodium 138 138 Potassium 4.1 4.5 Chloride 103 106 Carbon Dioxide 31 H 27 Anion Gap 4 5 BUN 27 H 21 H Creatinine 0.84 0.72 Estim Creat Clear Calc 37 43 Estimated GFR > 60 > 60 Glucose 91 85 Calcium 9.0 8.8 Total Bilirubin 1.3 1.4 H AST 19 19 ALT 7 6 Alkaline Phosphatase 87 86 Total Protein 6.0 L 6.0 L Albumin 3.3 L 3.1 L Quality VTE Prophylaxis VTE prophylaxis: mechanical ordered -Patient's previous records reviewed on admission -ER notes reviewed in detail on admission -discussed all findings and current treatment plan with patient/Family/POA -Consultations reviewed for recommendations -Patient's disposition for safe discharge discussed with continuous pillowcase cutter Dictation performed by [employer] direct speech recognition software, therefore farm machinery mechanic variants and typographical errors may occur. Hospitalist MIPS Advance Care Plan I have confirmed that the patient's Advanced Care Plan is present, code status is documented, or surrogate decision maker is listed in patient medical record.: Yes Medication Reconciliation I have utilized all available resources to obtain, update and review the patients current medications (includes all prescriptions, OTC, herbals, cannabis, and nutritional supplements).: Yes The patient is not eligible for med reconciliation; the patient is in a emergent medical situation where delaying treatment would jeopardize the patients health.: No
[2024-07-28] MEDS: FERROUS SULFATE 325 MG TABLET DR PO ×2 (09:48→17:15)
[2024-07-28] MEDS: CARBIDOPA/LEVODOPA 25/100 MG TABLET 3 TABLET PO ×3 (09:48→17:15)
[2024-07-28] MEDS: GABAPENTIN 300 MG CAPSULE PO ×2 (09:48→17:15)
[2024-07-28 09:49] VITALS: PULSE 68
[2024-07-28] MEDS: AMIODARONE HCL 200 MG TABLET PO (09:49)
[2024-07-28 14:00] VITALS: BP 114/48; PULSE 56; RESP 20; TEMP 36.9; O2SAT 98
[2024-07-28 20:15] VITALS: BP 136/60; PULSE 63; RESP 20; TEMP 36.8; O2SAT 95
[2024-07-28] MEDS: CARBIDOPA/LEVODOPA 25/100 MG CR TABLET 2 TABLET PO (20:52)
[2024-07-28] MEDS: MIRTAZAPINE 15 MG TABLET PO (20:52)
[2024-07-29 04:45] LABS: Hematocrit 27.7 % (37.0-47.0); Hemoglobin 8.7 g/dL (12.0-15.0); Immature Platelet Fraction Pct 2.5 % (0.9-11.2); Mean Corpuscular HGB Conc 31.4 g/dl (32-36); Mean Corpuscular Hemoglobin 21.2 pg (26-34); Mean Corpuscular Volume 67.6 fl (80-100); Mean Platelet Volume 9.3 fl (7.4-10.4); Platelet Count Result 184 k/mm3 (150-375); Red Cell Distribution Width 18.1 % (11.5-14.5); White Blood Count 5.6 K/mm3 (4.5-10.0)
[2024-07-29 04:58] LABS: Alanine Aminotransferase 7 U/L (6-35); Alkaline Phosphatase 83 U/L (38-126); Anion Gap 3 mmol/L (4-12); Aspartate Amino Transferase 17 U/L (14-36); Blood Urea Nitrogen 29 mg/dL (7-17); Calcium 8.9 mg/dL (8.4-10.2); Carbon Dioxide 29 mmol/L (22-30); Chloride 104 mmol/L (98-107); Estimated CRCL calculation 38 ml/min; Estimated Glomerular Filt Rate > 60; Glucose 98 mg/dL (65-110); Potassium 4.6 mmol/L (3.4-5.0); Sodium 136 mmol/L (137-145)
[2024-07-29] MEDS: POLYMYXIN/TRIMETHOPRIM OPHTH 10 ML DROPS 1 DROP LEFT EYE ×5 (05:51→20:43)
[2024-07-29] MEDS: LEVOTHYROXINE SODIUM 12.5 MCG TABLET PO (05:51)
[2024-07-29 06:00] VITALS: BP 110/49; PULSE 86; RESP 18; TEMP 36.6; O2SAT 96
[2024-07-29 09:17] VITALS: PULSE 86
[2024-07-29] MEDS: AMIODARONE HCL 200 MG TABLET PO (09:17)
[2024-07-29] MEDS: FERROUS SULFATE 325 MG TABLET DR PO ×2 (09:17→17:40)
[2024-07-29] MEDS: CARBIDOPA/LEVODOPA 25/100 MG TABLET 3 TABLET PO ×3 (09:18→17:40)
[2024-07-29] MEDS: FUROSEMIDE 40 MG TABLET PO (09:18)
[2024-07-29] MEDS: GABAPENTIN 300 MG CAPSULE PO ×2 (09:18→17:40)
--- NOTE | 2024-07-29 09:41 | PCNFU ---
Nutrition Follow-Up Complete: Severe protein calorie malnutrition related to chronic pain, loss of appetite as evidenced by intakes <75% needs >1 month; weight loss -12%/2 months; severe muscle wasting and fat loss Improve PO intake to at least 50% meals and supplements - goal is not being met, intakes 25% Goal: Pt current nutrition is Regular diet. Nutritional ice cream TID (270 kcal, 9 g protein) and Ensure Enlive TID (350 kcal, 20 g protein each). Nutrition recommendation: No new nutritional recommendations. Continue current nutrition care plan and orders Last recorded weight is 57.7 kg. Bowel Motility: Last BM recorded 07/23/24 Labs Reviewed: Hgb 8.7, Hct 27.7, Alb 3.0, Na 136, BUN 29 Meds Noted: Remeron, Lasix Skin: No pressure Additional Notes: Jaw pain and stiffness determined to be likely progression of Parkinsons. Appetite remains poor. Only eating about 25% meals. SNF placement in progress. Monitoring intakes, weights, labs, meds, supplement tolerance, plan of care Follow up in 3 days
--- NOTE | 2024-07-29 12:30 | P.DS_ITS ---
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 Status: Acute Assessment and Plan: Patient family reports previous history of left facial Neuralgia currently pain is intense and she is unable to eat and has been withdrawn * currently on gabapentin not working may need to try an Tegretol, Lyrica will wait on Neurology input * add baclofen * MRI pending * Neurology consulted recommendations appreciated * CT facial with no acute findings 07/26/2024: * MRI with no significant findings * VSV PCR for possible internal shingles * start acyclovir IV pending results if negative will treat left eye as bacterial conjunctivitis 07/27/24 * Will hold acyclovir and baclofen due to change in mental status somnolence * VZV PCR pending * IV fluids * CT head with no acute findings * Started ABX eye drops for possible bacterial conjunctivitis 07/28: * D/C Baclofen * D/C fluids * still holding acyclovir PCR pending * Jaw rigidity likely contributing to pain (2) Acute kidney injury: Code(s): N17.9 - Acute kidney failure, unspecified Status: Acute Assessment and Plan: Patient with poor oral intake due to severe pain * Cr mildly elevated POA * improving with IV fluids RESOLVED (3) Microcytic anemia: Code(s): D50.9 - Iron deficiency anemia, unspecified Status: Acute Assessment and Plan: Patient with poor oral intake was likely secondary to poor protein intake and malnutrition but patient was having multiple epistaxis and her eliquis was stopped * Hgb stable 8.4 * Iron panel pending * will start iron supplements 325 BID * transfuse PRBC if hgb <7.0 (4) Paroxysmal atrial fibrillation: Code(s): I48.0 - Paroxysmal atrial fibrillation Status: Acute Assessment and Plan: * Resumed amiodarone * Eliquis has been discontinued due to continued nosebleeds (5) Parkinson disease: Qualifiers: Dyskinesia presence: unspecified whether dyskinesia Fluctuating manifestations: unspecified whether manifestations fluctuate Qualified Code(s): G20.A1 - Parkinson's disease without dyskinesia, without mention of fluctuations Code(s): G20 - Parkinson's disease Status: Acute Assessment and Plan: * resume carbidopa levodopa * PT/OT (6) Adult failure to thrive: Code(s): R62.7 - Adult failure to thrive Status: Acute Assessment and Plan: Patient with reported poor oral intake and withdrawing at her assisted living possibly secondary to worsening severe LT sided facial pain and chronic conditions of Parkison's and Dementia * Barium swallow and speech consulted * add protein shakes with each meal * having mild tremors and jaw rigidity likely progression of disease * continue with carbidopa levodopa * PT/OT/ST * In follow-up with her neurologist outpatient (7) Heart failure with preserved ejection fraction (HFpEF, >= 50%): Qualifiers: Heart failure chronicity: acute on chronic Qualified Code(s): I50.33 - Acute on chronic diastolic (congestive) heart failure Code(s): I50.30 - Unspecified diastolic (congestive) heart failure Status: Acute Assessment and Plan: * Lasix on hold patient dehydrated on admission due to poor oral intake 07/28/24: * Resumed Lasix to daily from BID (8) Orthostatic hypotension due to Parkinson disease: Code(s): G90.3 - Multi-system degeneration of the autonomic nervous system Status: Acute Plan Code status: Full code per patient DVT prophylaxis: SCD Stress ulcer prophylaxis: NA PT/OT notes: PT/OT recommend SNF Disposition: patient was admitted to the medical unit for further evaluation and treatment of failure to thrive likely secondary to severe left facial pain and anemia. neurology has been consulted for further recommendations initiated baclofen will also treat for possible internal shingles. Holding medications due to mental changes. patient currently resides at assisted living PT/OT recommended SNF currently waiting on acceptance and authorization. spoke with Daughter Tara regarding potential for [facility] care due to progression of Parkinson. DS: Summary Time Spent with Patient Time attestation: Total time spent providing and/or coordinating discharge services: Exam Const: General: comfortable and no acute distress Other: somnolent alert oriented x2 with intermittent confusion HENMT: Mouth: Yes moist mucous membranes Eyes: Pupils: Equal, round and reactive pupils present Other: Erythema to Left eye with scant drainage Neck: Neck: supple and no JVD Resp: Effort & Inspection: normal respiratory effort Auscultation: clear to auscultation bilaterally Cardio: Rate: tachycardic Rhythm: regular rhythm GI: Auscultation: normal bowel sounds Skin: General skin exam: normal color Neuro: Cranial nerves: Yes Equal, round and reactive pupils present Speech: normal speech Extrem: General: normal to inspection Psych: Mental Status: mental status grossly normal DS: Data Data Completed and Pending Labs on day of discharge: Labs from last 24 hours 07/29/24 04:03 WBC 5.6 RBC 4.10 L Hgb 8.7 L Hct 27.7 L MCV 67.6 L MCH 21.2 L MCHC 31.4 L RDW 18.1 H Plt Count 184 MPV 9.3 % Immature Plt Fraction 2.5 Sodium 136 L Potassium 4.6 Chloride 104 Carbon Dioxide 29 Anion Gap 3 L BUN 29 H Creatinine 0.83 Estim Creat Clear Calc 38 Estimated GFR > 60 Glucose 98 Calcium 8.9 Total Bilirubin 1.0 AST 17 ALT 7 Alkaline Phosphatase 83 Total Protein 5.0 L Albumin 3.0 L Discharge Plan Discharge Attending physician on discharge: Ina Haji Consulting providers: Jeff Best; Mili Spencer Discharging Clinician: Mili Spencer Anticipated Discharge Date/Time: 07/29/24 12:06 Patient Disposition: SNF Activity: unlimited and as tolerated Diet: as tolerated and regular Discharge Instructions: Facial Neuralgia: * Continue gabapentin * Varicella (shingles) lab report still pending will continue to follow-up once resulted Parkinson * Resume carbidopa levodopa * PT/OT/ST * Follow-up with Neurology outpatient * Add Ensure with each meal Orthostatic hypotension secondary to Parkinson * Please wear compression stockings with ambulation * Drink plenty of fluids Conjunctivitis * I have prescribed eye drops please use as indicated Hypothyroidism: * I have started you on levothyroxine for hypothyroid you need follow-up TSH in 3 months Anemia: * I have also prescribed ferrous sulfate for iron deficiency anemia please take as indicated How can you care for yourself at home? ? Keep track of any new symptoms or changes in your symptoms. ? Rest until you feel better. ? Be safe with medicines. Take your medicines exactly as prescribed. Call your doctor if you think you are having a problem with your medicine. ? Do not drive after taking a prescription pain medicine. ? Ensure to follow-up with primary care physician as indicated and provide updated medication list provided to you at discharge. When should you call for help? Call 911 anytime you think you may need emergency care. For example, call if: ? You passed out (lost consciousness). Call your doctor now or seek immediate medical care if: ? You have new symptoms like fever, difficulty breathing, Chest pain, vomiting, or rash. ? You have new or different pain. ? You are confused and are having trouble thinking clearly. ? Your symptoms are getting worse. Watch closely for changes in your health, and be sure to contact your doctor if: ? You do not get better as expected. Patient Instructions: Trigeminal Neuralgia (DC), Parkinson Disease (DC), Hypotension (DC), Conjunctivitis (GEN) Patient Language: Ghanaian Stand Alone Forms: General Discharge Information, [facility] Discharge Follow-up/Referrals: Luis Almeida, [Primary Care Provider] - 2 Weeks Discharge Medications: New ferrous sulfate 325 mg (65 mg iron) Tablet,Delayed Release (Dr/Ec) 325 mg PO BID Qty: 60 0RF levothyroxine 25 mcg capsule 25 mcg PO DAILY Qty: 30 0RF tramadol 50 mg tablet 50 mg PO Q6H PRN (Reason: pain) Qty: 10 0RF polymyxin B sulf-trimethoprim 10,000 unit- 1 mg/mL drops 1 drp LEFT EYE Q3H 10 Days Qty: 10 0RF Rx Instructions: while awake; do not exceed 6 doses in 24 hours Continued mirtazapine 15 mg tablet 15 mg PO QHS amiodarone [Pacerone] 200 mg tablet 200 mg PO DAILY Qty: 30 5RF furosemide 40 mg tablet 40 mg PO BID Qty: 60 5RF carbidopa-levodopa 50-200 mg tablet extended release 2 tablet PO QHS carbidopa-levodopa 25-100 mg tablet 1 tablet PO TID Rx Instructions: 3 tabs at 8:00 AM, 12:00 PM, and 6:00 PM. docusate sodium [Colace] 100 mg capsule 100 mg PO HS PRN (Reason: constipation) ondansetron 4 mg tablet,disintegrating 4 mg PO Q8H PRN (Reason: nausea and vomiting) acetaminophen 500 mg tablet 500 mg PO Q8H PRN (Reason: pain) Qty: 90 2RF gabapentin 300 mg capsule 300 mg PO BID Qty: 120 1RF Discontinued amoxicillin-pot clavulanate 875-125 mg tablet 1 tablet PO Q12H 3 Days Qty: 6 0RF Date of admission: 07/25/24 09:50 Primary Care Provider: Luis Almeida Admitting Provider: Keo Mcmillan Attending physician on admission: Keo Mcmillan Condition: Stable Quality VTE Prophylaxis VTE prophylaxis: mechanical ordered
[2024-07-29 13:45] VITALS: BP 94/45
[2024-07-29 14:48] VITALS: BP 109/46; PULSE 65; RESP 18; O2SAT 100
--- NOTE | 2024-07-29 16:09 | P.PNIM_ITS ---
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 Status: Acute Assessment and Plan: Patient family reports previous history of left facial Neuralgia currently pain is intense and she is unable to eat and has been withdrawn * currently on gabapentin not working may need to try an Tegretol, Junior will wait on Neurology input * add baclofen * MRI pending * Neurology consulted recommendations appreciated * CT facial with no acute findings 07/26/2024: * MRI with no significant findings * VSV PCR for possible internal shingles * start acyclovir IV pending results if negative will treat left eye as bacterial conjunctivitis 07/27/24 * Will hold acyclovir and baclofen due to change in mental status somnolence * VZV PCR pending * IV fluids * CT head with no acute findings * Started ABX eye drops for possible bacterial conjunctivitis 07/28: * D/C Baclofen * D/C fluids * still holding acyclovir PCR pending * Jaw rigidity likely contributing to pain (2) Acute kidney injury: Code(s): N17.9 - Acute kidney failure, unspecified Status: Acute Assessment and Plan: Patient with poor oral intake due to severe pain * Cr mildly elevated POA * improving with IV fluids RESOLVED (3) Microcytic anemia: Code(s): D50.9 - Iron deficiency anemia, unspecified Status: Acute Assessment and Plan: Patient with poor oral intake was likely secondary to poor protein intake and malnutrition but patient was having multiple epistaxis and her eliquis was stopped * Hgb stable 8.4 * Iron panel pending * will start iron supplements 325 BID * transfuse PRBC if hgb <7.0 (4) Paroxysmal atrial fibrillation: Code(s): I48.0 - Paroxysmal atrial fibrillation Status: Acute Assessment and Plan: * Resumed amiodarone * Eliquis has been discontinued due to continued nosebleeds (5) Parkinson disease: Qualifiers: Dyskinesia presence: unspecified whether dyskinesia Fluctuating manifestations: unspecified whether manifestations fluctuate Qualified Code(s): G20.A1 - Parkinson's disease without dyskinesia, without mention of fluctuations Code(s): G20 - Parkinson's disease Status: Acute Assessment and Plan: * resume carbidopa levodopa * PT/OT (6) Adult failure to thrive: Code(s): R62.7 - Adult failure to thrive Status: Acute Assessment and Plan: Patient with reported poor oral intake and withdrawing at her assisted living possibly secondary to worsening severe LT sided facial pain and chronic conditions of Parkison's and Dementia * Barium swallow and speech consulted * add protein shakes with each meal * having mild tremors and jaw rigidity likely progression of disease * continue with carbidopa levodopa * PT/OT/ST * In follow-up with her neurologist outpatient (7) Heart failure with preserved ejection fraction (HFpEF, >= 50%): Qualifiers: Heart failure chronicity: acute on chronic Qualified Code(s): I50.33 - Acute on chronic diastolic (congestive) heart failure Code(s): I50.30 - Unspecified diastolic (congestive) heart failure Status: Acute Assessment and Plan: * Lasix on hold patient dehydrated on admission due to poor oral intake 07/28/24: * Resumed Lasix to daily from BID (8) Orthostatic hypotension due to Parkinson disease: Code(s): G90.3 - Multi-system degeneration of the autonomic nervous system Status: Acute Assessment and Plan: * Wear compression stockings with ambulation * Reduce Lasix to daily Plan Code status: Full code per patient DVT prophylaxis: SCD Stress ulcer prophylaxis: NA PT/OT notes: PT/OT recommend SNF Disposition: patient was admitted to the medical unit for further evaluation and treatment of failure to thrive likely secondary to severe left facial pain and anemia. neurology has been consulted for further recommendations initiated baclofen will also treat for possible internal shingles. Holding medications due to mental changes. patient currently resides at assisted living PT/OT recommended SNF patient initially scheduled for discharge to [facility] but due to ITP issues unable to take patient cc working on other placement Time Spent With Patient Time with patient: 15 - 25 minutes Subjective Date/time seen: 07/29/24 16:09 Interval history: Patient is a 88-year old female admitted for further evaluation facial pain, failure to thrive and anemia 07/29/24: Patient doing well today was up in the chair eating chips. Plan was for discharge to SNF however [place] had IT issues and could not take patient today. Review of Systems Review of Systems: 12 systems were reviewed and are negativ e except for as per HPI. All systems reviewed & are unremarkable except as noted in HPI and below Exam Const: General: comfortable and no acute distress Other: somnolent alert oriented x2 with intermittent confusion HENMT: Mouth: Yes moist mucous membranes Eyes: Pupils: Equal, round and reactive pupils present Other: Erythema to Left eye with scant drainage Neck: Neck: supple and no JVD Resp: Effort & Inspection: normal respiratory effort Auscultation: clear to auscultation bilaterally Cardio: Rate: tachycardic Rhythm: regular rhythm GI: Auscultation: normal bowel sounds Skin: General skin exam: normal color Neuro: Cranial nerves: Yes Equal, round and reactive pupils present Speech: normal speech Extrem: General: normal to inspection Psych: Mental Status: mental status grossly normal Objective Data Vital Signs Vital Signs: Vital Signs - 24 hr 07/28/24 20:15 07/28/24 20:53 07/29/24 06:00 Temperature 98.2 F 97.9 F Pulse Rate 63 86 Respiratory Rate 20 18 Blood Pressure 136/60 110/49 L Pulse Oximetry 95 96 Oxygen Delivery Room Air 07/29/24 09:17 07/29/24 09:20 07/29/24 13:45 Temperature Pulse Rate 86 Respiratory Rate Blood Pressure 94/45 L Pulse Oximetry Oxygen Delivery Room Air 07/29/24 14:48 Temperature Pulse Rate 65 Respiratory Rate 18 Blood Pressure 109/46 L Pulse Oximetry 100 Oxygen Delivery Intake/Output Intake/Output: Intake & Output 07/26/24 07/27/24 07/28/24 07/29/24 23:59 23:59 23:59 23:59 Intake Total 1331.7 390 3421 555 Output Total 944 946 0510 200 Balance 481.7 -535 1871 355 Meds/Results Medications: Active Medications Generic Name Dose Route Start Last Admin Trade Name Hever PRN Reason Stop Dose Admin Acetaminophen 650 mg 07/24/24 15:47 07/25/24 10:39 Acetaminophen 325 Mg Tablet PO 650 mg Q4H PRN Administration Mild Pain (1-3) or Fever Amiodarone HCl 200 mg 07/25/24 09:00 07/29/24 09:17 Amiodarone Hcl 200 Mg Tablet PO 200 mg DAILY LIZA Administration Carbidopa/Levodopa 3 tablet 07/25/24 08:00 07/29/24 13:09 Carbidopa/Levodopa 25/100 Mg Tablet PO 3 tablet 0800,1200,1800 LIZA Administration Carbidopa/Levodopa 2 tablet 07/24/24 21:50 07/28/24 20:52 Carbidopa/Levodopa 25/100 Mg Cr Tablet PO 2 tablet QHS LIZA Administration Dextrose 12.5 gm 07/24/24 15:48 Dextrose 50% 25 Gm/50 Ml Syringe IV PUSH PRN PRN Hypoglycemia Protocol Docusate Sodium 100 mg 07/24/24 21:48 Docusate Sodium 100 Mg Capsule PO HS PRN constipation Ferrous Sulfate 325 mg 07/25/24 09:00 07/29/24 09:17 Ferrous Sulfate [address] PO 325 mg BID LIZA Administration Furosemide 40 mg 07/29/24 09:00 07/29/24 09:18 Furosemide 40 Mg Tablet PO 40 mg DAILY LIZA Administration Gabapentin 300 mg 07/24/24 20:00 07/29/24 09:18 Gabapentin 300 Mg Capsule PO 300 mg BID LIZA Administration Glucagon 1 mg 07/24/24 15:48 Glucagon For Inj 1 Mg Vial IM PRN PRN Hypoglycemia Protocol Glucose 15 gm 07/24/24 15:48 Glucose Oral Gel 15 Gm Of Glucse In 37.5 Gm Tube PO PRN PRN Hypoglycemia Protocol Dextrose 1,000 mls @ 100 mls/hr 07/24/24 15:48 Dextrose 5% 1,000 Ml IVPB PRN PRN Hypoglycemia Protocol Levothyroxine Sodium 12.5 mcg 07/26/24 06:30 07/29/24 05:51 Levothyroxine Sodium 12.5 Mcg Tablet PO 12.5 mcg DAILY@0630 LIZA Administration Mirtazapine 15 mg 07/24/24 21:55 07/28/24 20:52 Mirtazapine 15 Mg Tablet PO 15 mg QHS LIZA Administration Polymyxin/Trimethoprim Sulfate 1 drop 07/27/24 13:00 07/29/24 13:10 Polymyxin/Trimethoprim Ophth 10 Ml Drops LEFT EYE 1 drop Q4HWA LIZA Administration Tramadol/Acetaminophen 1 tab 07/25/24 11:40 07/27/24 13:29 Tramadol/Acetaminophen (*Crx) (Ultracet) 37.5/325 Mg Tablet PO 1 tab Q4H PRN Administration Pain Rated 4-6 Radiology Results: ITS Impressions Face CT 07/24/24 14:59 IMPRESSION: 1. No specific etiology for the patient's symptoms. Modified Barium Swallow 07/25/24 11:47 IMPRESSION: Flash/shallow penetration without aspiration Please refer to speech pathologist report for additional detail. Brain MRI 07/25/24 13:59 IMPRESSION: 1. Moderate nonspecific cerebral white matter disease, which likely represents chronic small vessel ischemic disease, mildly worsened from 01/27/2017. Head CT 07/27/24 10:40 Impression: No intracranial hemorrhage, mass, or acute infarct. Atrophy and chronic white matter changes, as above. Labs Labs: Laboratory Results - last 24 hr 07/29/24 04:03 WBC 5.6 RBC 4.10 L Hgb 8.7 L Hct 27.7 L MCV 67.6 L MCH 21.2 L MCHC 31.4 L RDW 18.1 H Plt Count 184 MPV 9.3 % Immature Plt Fraction 2.5 Sodium 136 L Potassium 4.6 Chloride 104 Carbon Dioxide 29 Anion Gap 3 L BUN 29 H Creatinine 0.83 Estim Creat Clear Calc 38 Estimated GFR > 60 Glucose 98 Calcium 8.9 Total Bilirubin 1.0 AST 17 ALT 7 Alkaline Phosphatase 83 Total Protein 5.0 L Albumin 3.0 L Quality VTE Prophylaxis VTE prophylaxis: mechanical ordered -Patient's previous records reviewed on admission -ER notes reviewed in detail on admission -discussed all findings and current treatment plan with patient/Family/POA -Consultations reviewed for recommendations -Patient's disposition for safe discharge discussed with case assistant Dictation performed by [employer] direct speech recognition software, therefore dirt contractor variants and typographical errors may occur. Hospitalist MIPS Advance Care Plan I have confirmed that the patient's Advanced Care Plan is present, code status is documented, or surrogate decision maker is listed in patient medical record.: Yes Medication Reconciliation I have utilized all available resources to obtain, update and review the patients current medications (includes all prescriptions, OTC, herbals, cannabis, and nutritional supplements).: Yes The patient is not eligible for med reconciliation; the patient is in a emergent medical situation where delaying treatment would jeopardize the patients health.: No
--- NOTE | 2024-07-29 17:07 | WPDNEUROPN ---
Progress Note: A&P Assessment and Plan (1) Parkinson disease: Qualifiers: Dyskinesia presence: unspecified whether dyskinesia Fluctuating manifestations: unspecified whether manifestations fluctuate Qualified Code(s): G20.A1 - Parkinson's disease without dyskinesia, without mention of fluctuations Code(s): G20 - Parkinson's disease Status: Acute (2) Left-sided face pain: Code(s): R51.9 - Headache, unspecified Status: Acute Assessment and Plan: She complains of pain mostly around the left eye and the ages of both eyelids appear somewhat inflamed and I agree with antibiotic eyedrops. I noted that she has become drowsy with the some of the medications the hemisphere back down onto fever medications for facial pain. I do not propose adding any more medications a rather I would suggest to treat her I with the eye drops and today if necessary get an opinion from java golden gate developer. With regard to Parkinson disease she seems to be adequately controlled with current medications and these should be continued. Subjective Date/time seen: 07/29/24 17:07 Interval history: The patient 88-year-old with history of Parkinson's disease and left facial pain and pain around the left eye complains of pain mostly around the left eye and now. When asked directly she states that she does feel somewhat sore in the left maxillary or matter area. Noted that she has been started on an antibiotic eye drops for the left eye with which I agree. No other symptoms pertinent to Parkinson disease reported at this time. Review of Systems Review of Systems: All systems reviewed & are unremarkable except as noted in HPI and below Exam Narrative: Fully conscious alert oriented to self place and person. The left eye leads appear somewhat inflamed at the ages some secretion. No other involuntary movements were seen. Examination of cranial nerves and motor system was unremarkable. No significant cogwheeling was noted. Objective Data Vital Signs Vital Signs: Vital Signs - 24 hr 07/28/24 20:15 07/28/24 20:53 07/29/24 06:00 Temperature 98.2 F 97.9 F Pulse Rate 63 86 Respiratory Rate 20 18 Blood Pressure 136/60 110/49 L Pulse Oximetry 95 96 Oxygen Delivery Room Air 07/29/24 09:17 07/29/24 09:20 07/29/24 13:45 Temperature Pulse Rate 86 Respiratory Rate Blood Pressure 94/45 L Pulse Oximetry Oxygen Delivery Room Air 07/29/24 14:48 Temperature Pulse Rate 65 Respiratory Rate 18 Blood Pressure 109/46 L Pulse Oximetry 100 Oxygen Delivery Intake/Output Intake/Output: Intake & Output 07/26/24 07/27/24 07/28/24 07/29/24 23:59 23:59 23:59 23:59 Intake Total 1331.7 390 3421 555 Output Total 267 337 4329 200 Balance 481.7 -535 1871 355 Meds/Results Medications: Active Medications Generic Name Dose Route Start Last Admin Trade Name Freq PRN Reason Stop Dose Admin Acetaminophen 650 mg 07/24/24 15:47 07/25/24 10:39 Acetaminophen 325 Mg Tablet PO 650 mg Q4H PRN Administration Mild Pain (1-3) or Fever Amiodarone HCl 200 mg 07/25/24 09:00 07/29/24 09:17 Amiodarone Hcl 200 Mg Tablet PO 200 mg DAILY LIZA Administration Carbidopa/Levodopa 3 tablet 07/25/24 08:00 07/29/24 13:09 Carbidopa/Levodopa 25/100 Mg Tablet PO 3 tablet 0800,1200,1800 LIZA Administration Carbidopa/Levodopa 2 tablet 07/24/24 21:50 07/28/24 20:52 Carbidopa/Levodopa 25/100 Mg Cr Tablet PO 2 tablet QHS LIZA Administration Dextrose 12.5 gm 07/24/24 15:48 Dextrose 50% 25 Gm/50 Ml Syringe IV PUSH PRN PRN Hypoglycemia Protocol Docusate Sodium 100 mg 07/24/24 21:48 Docusate Sodium 100 Mg Capsule PO HS PRN constipation Ferrous Sulfate 325 mg 07/25/24 09:00 07/29/24 09:17 Ferrous Sulfate [address] PO 325 mg BID LIZA Administration Furosemide 40 mg 07/29/24 09:00 07/29/24 09:18 Furosemide 40 Mg Tablet PO 40 mg DAILY LIZA Administration Gabapentin 300 mg 07/24/24 20:00 07/29/24 09:18 Gabapentin 300 Mg Capsule PO 300 mg BID LIZA Administration Glucagon 1 mg 07/24/24 15:48 Glucagon For Inj 1 Mg Vial IM PRN PRN Hypoglycemia Protocol Glucose 15 gm 07/24/24 15:48 Glucose Oral Gel 15 Gm Of Glucse In 37.5 Gm Tube PO PRN PRN Hypoglycemia Protocol Dextrose 1,000 mls @ 100 mls/hr 07/24/24 15:48 Dextrose 5% 1,000 Ml IVPB PRN PRN Hypoglycemia Protocol Levothyroxine Sodium 12.5 mcg 07/26/24 06:30 07/29/24 05:51 Levothyroxine Sodium 12.5 Mcg Tablet PO 12.5 mcg DAILY@0630 LIZA Administration Mirtazapine 15 mg 07/24/24 21:55 07/28/24 20:52 Mirtazapine 15 Mg Tablet PO 15 mg QHS LIZA Administration Polymyxin/Trimethoprim Sulfate 1 drop 07/27/24 13:00 07/29/24 13:10 Polymyxin/Trimethoprim Ophth 10 Ml Drops LEFT EYE 1 drop Q4HWA LIZA Administration Tramadol/Acetaminophen 1 tab 07/25/24 11:40 07/27/24 13:29 Tramadol/Acetaminophen (*Crx) (Ultracet) 37.5/325 Mg Tablet PO 1 tab Q4H PRN Administration Pain Rated 4-6 Radiology Results: ITS Impressions Face CT 07/24/24 14:59 IMPRESSION: 1. No specific etiology for the patient's symptoms. Modified Barium Swallow 07/25/24 11:47 IMPRESSION: Flash/shallow penetration without aspiration Please refer to speech pathologist report for additional detail. Brain MRI 07/25/24 13:59 IMPRESSION: 1. Moderate nonspecific cerebral white matter disease, which likely represents chronic small vessel ischemic disease, mildly worsened from 01/27/2017. Head CT 07/27/24 10:40 Impression: No intracranial hemorrhage, mass, or acute infarct. Atrophy and chronic white matter changes, as above. Labs Labs: Laboratory Results - last 24 hr 07/29/24 04:03 WBC 5.6 RBC 4.10 L Hgb 8.7 L Hct 27.7 L MCV 67.6 L MCH 21.2 L MCHC 31.4 L RDW 18.1 H Plt Count 184 MPV 9.3 % Immature Plt Fraction 2.5 Sodium 136 L Potassium 4.6 Chloride 104 Carbon Dioxide 29 Anion Gap 3 L BUN 29 H Creatinine 0.83 Estim Creat Clear Calc 38 Estimated GFR > 60 Glucose 98 Calcium 8.9 Total Bilirubin 1.0 AST 17 ALT 7 Alkaline Phosphatase 83 Total Protein 5.0 L Albumin 3.0 L
[2024-07-29] MEDS: CARBIDOPA/LEVODOPA 25/100 MG CR TABLET 2 TABLET PO (20:42)
[2024-07-29] MEDS: MIRTAZAPINE 15 MG TABLET PO (20:42)
[2024-07-29 22:00] VITALS: BP 120/58; PULSE 67; RESP 14; TEMP 37.2; O2SAT 96
[2024-07-30 04:58] VITALS: BP 116/49; PULSE 56; RESP 16; TEMP 37; O2SAT 97
[2024-07-30 05:35] LABS: Hematocrit 28.1 % (37.0-47.0); Hemoglobin 8.6 g/dL (12.0-15.0); Immature Platelet Fraction Pct 2.9 % (0.9-11.2); Mean Corpuscular HGB Conc 30.6 g/dl (32-36); Mean Corpuscular Hemoglobin 21.3 pg (26-34); Mean Corpuscular Volume 69.6 fl (80-100); Mean Platelet Volume 9.4 fl (7.4-10.4); Platelet Count Result 190 k/mm3 (150-375); Red Blood Count 4.04 M/mm3 (4.2-5.4); Red Cell Distribution Width 18.3 % (11.5-14.5); White Blood Count 5.1 K/mm3 (4.5-10.0)
[2024-07-30] MEDS: POLYMYXIN/TRIMETHOPRIM OPHTH 10 ML DROPS 1 DROP LEFT EYE ×3 (05:41→12:14)
[2024-07-30] MEDS: LEVOTHYROXINE SODIUM 12.5 MCG TABLET PO (05:41)
[2024-07-30 05:53] LABS: Alanine Aminotransferase 7 U/L (6-35); Alkaline Phosphatase 76 U/L (38-126); Anion Gap 5 mmol/L (4-12); Aspartate Amino Transferase 17 U/L (14-36); Bilirubin,Total 0.9 mg/dL (0.2-1.3); Blood Urea Nitrogen 39 mg/dL (7-17); Calcium 8.6 mg/dL (8.4-10.2); Carbon Dioxide 29 mmol/L (22-30); Chloride 104 mmol/L (98-107); Estimated CRCL calculation 35 ml/min; Estimated Glomerular Filt Rate > 60; Glucose 96 mg/dL (65-110); Potassium 4.2 mmol/L (3.4-5.0); Sodium 138 mmol/L (137-145)
[2024-07-30 09:05] VITALS: PULSE 74
[2024-07-30] MEDS: AMIODARONE HCL 200 MG TABLET PO (09:05)
[2024-07-30] MEDS: GABAPENTIN 300 MG CAPSULE PO (09:06)
[2024-07-30] MEDS: FERROUS SULFATE 325 MG TABLET DR PO (09:06)
[2024-07-30] MEDS: FUROSEMIDE 40 MG TABLET PO (09:06)
[2024-07-30] MEDS: CARBIDOPA/LEVODOPA 25/100 MG TABLET 3 TABLET PO ×2 (09:08→12:14)
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
[2024-07-30 12:04] LABS: SARS-CoV-2 RNA PCR Negative (Negative)
[2024-07-30] MEDS: traMADol/ACETAMINOPHEN (*CRX) (ULTRACET) 37.5/325 MG TABLET 1 TAB PO (12:17)
--- NOTE | 2024-07-30 18:40 | PC.NURSE ---
MELONY called to see if sheri lab was back. Lab still pending.
[2024-07-30 22:03] LABS: VZV DNA, QL PCR Not Detected (Not Detected)
== END 2024-07-30 13:46 | DRG 73 ==
LOC: ANHED 15:50 → ANH3MEDSUR 16:48 → ANH2MED 17:09
PROVIDERS: Physician Assistant; Psychiatry & Neurology Neurology; Admitting Provider General Practice; Emergency Provider Physician Assistant; PCP Internal Medicine; Visit Provider Nurse Practitioner Family
DX: G51.8 Other disorders of facial nerve (principal); E43 Unspecified severe protein-calorie malnutrition; N17.9 Acute kidney failure, unspecified; I50.30 Unspecified diastolic (congestive) heart failure; I11.0 Hypertensive heart disease with heart failure; D50.9 Iron deficiency anemia, unspecified; E86.0 Dehydration; G20.A1 Parkinson's disease without dyskinesia, without mention of fluctuations; H10.9 Unspecified conjunctivitis; I48.0 Paroxysmal atrial fibrillation; F03.90 Unspecified dementia, unspecified severity, without behavioral disturbance, psychotic disturbance, mood disturbance, and anxiety; H91.90 Unspecified hearing loss, unspecified ear; I27.20 Pulmonary hypertension, unspecified; Z85.828 Personal history of other malignant neoplasm of skin; Z11.52 Encounter for screening for COVID-19; Z85.840 Personal history of malignant neoplasm of eye; Z98.41 Cataract extraction status, right eye; Z98.42 Cataract extraction status, left eye; Z96.1 Presence of intraocular lens; Z90.49 Acquired absence of other specified parts of digestive tract; Z85.038 Personal history of other malignant neoplasm of large intestine; Z68.21 Body mass index [BMI] 21.0-21.9, adult
CPT/HCPCS: 36415; 70450; 70487; 70551; 80048; 80053; 82306; 82607; 82728; 82746; 83540; 83550; 83735; 84439; 84443; 84480; 85025; 85027; 85055; 85652; 86140; 87635; 87798; 92611; 96360; 97110; 97162; 97166; 97530; 99285; A9270; G0378; J0133; J7030; J7060; J7120; Q9967

== ENCOUNTER 2024-08-04 10:55 | Emergency (ER) | payer MEDICARE, MEDICAID, SELFPAY ==
--- NOTE | ~2024-08-04 | CT_ITS ---
History: Fall PROCEDURE: CT head without contrast. COMPARISON: 07/27/2024 TECHNIQUE: Axial imaging of the head performed from the skull base to the vertex without IV contrast. Sagittal a nd coronal reformations obtained. DLP: 605 mGy-cm FINDINGS: The ventricles are enlarged. The dilatation of the ventricles is proportional to the degree of sulcal prominence, not uncommon in the senescent brain. Basal ganglia calcifications are redemonstrated. Decreased attenuation is identified within the periventricular white matter, likely secondary to micr ovascular ischemic disease, in a patient of this age. There is no mass, mass effect or midline shift. There is no abnormal extra-axial fluid collection or intracranial hemorrhage. Visualized paranasal sinuses are clear. The mastoid air cells are well aerated. No acute displaced fractures within the overlying cranium. Impression: No acute intracranial hemorrhage or suspicious mass effect. Reviewed, dictated and finalized at location A. Impression: No acute intracranial hemorrhage or suspicious mass effect.
--- NOTE | ~2024-08-04 | CT_ITS ---
History: Fall PROCEDURE: CT cervical spine without intravenous contrast. COMPARISON: None TECHNIQUE: Multiple contiguous axial images of the cervical spine were performed without the administration of i ntravenous contrast. DLP: 98 mGy-cm FINDINGS: Straightening of the normal curvature of the cervical spine is identified, likely muscular in origin. Degenerative disease is identified with osteophyte formation and disc space narrowing. Facet arthropathy is also noted. No acute fractures are present. Biapical scarring. No soft tissue abnormality is present. The airway is patent. Impression: Straightening of the normal curvature of the cervical spine, likely muscular in origin. Degenerative disease, without acute fracture. Reviewed, dictated and finalized at location A. Impression: Straightening of the normal curvature of the cervical spine, likely muscular in origin. Degenerative disease, without acute fracture.
[2024-08-04 11:01] VITALS: BP 100/52; PULSE 44; RESP 16; TEMP 36.6; O2SAT 98
--- OUTSIDE RECORDS SUMMARY | 2024-08-04 11:24 | XMS_ITS | Referral Summary ---
Author Organization [facility] al Address [address] [place] [address] Care Team Providers Care Scanning Coordinator Name Role Phone Luis Almeida DO Primary Care Provider [phone] Encounters Date Type Department Care Team Description 08/02/2024 Telephone [facility] Movement Disorders [address] [place] [address] Advanced Medicine [address]th [place] [address] Racquel Etienne MD 08/02/2024 1:15 PM CDT Office Visit [facility] Ophthalmology [address] [place] [phone] Joselyn Sequeira MD Eye pain, left (Primary Dx); Malignant melanoma of conjunctiva, left (HCC) 08/01/2024 Telephone [facility] Ophthalmology [address] [place], [place] [id number] No, Physician Right eye pain; New symptoms/ FYI 07/23/2024 Telephone [facility] Movement Disorders [address] [facility] Advanced Medicine [address]th [place] [address] Racquel Etienne MD 07/18/2024 Telephone [facility] Advanced Medicine ([facility]) - [facility] ENT [address] [facility] Advanced Medicine [address]th [place] [address] [place] [address] Laine Aguilera MS 06/27/2024 Telephone [facility] Ophthalmology [address] [place] [phone] Reyna Lewis COA 06/17/2024 12:00 PM YARN DUMPER Office Visit [facility] Movement Disorders [address] [facility] 7th [place] [address] Elizabeth Barriga NP Parkinson disease (HCC) from [...] 8:00am, 12:00pm, and 4:00pm. 810 tablet 3 06/17/19 25 Active carbidopa-levo dopa CR (SINEMET CR) 50-200 mg per CR tablet Take 2 tabs at 8:00pm. 180 tablet 3 06/17/19 25 Active mirtazapine (REMERON) 15 mg tablet Take 1 tablet (15 mg total) by mouth nightly 90 tablet 3 06/17/19 25 026 Active gabapentin (NEURONTIN) 300 mg capsule Take 1 capsule (300 mg total) by mouth 2 (two) times a day Active erythromycin (ILOTYCIN) ophthalmic ointment Apply to left eye nightly 3.5 g 11 08/03/19 25 Active gabapentin (NEURONTIN) 100 mg capsule Take 1 capsule (100 mg total) by mouth nightly 90 capsule 3 06/17/19 25 025 Discontinued Active Problems Problem Noted Date Diagnosed Date Eye pain, left 08/02/2024 Assessment & Plan (08/02/2024 4:54 PM CDT): --Patient presents with daughter today c/o excruciating left facial and eye pain x 2 weeks --On exam, pt appears comfortable. No tenderness to touch. --Exam notable for blepharitis OU with mild lid margin erythema OS>OD, otherwise no epi defect or signs of intraocular inflammation --Her pain may be more neuropathic in nature, possibly c/w hx trigeminal neuralgia. Her gabapentin has not been helping as much. --Pt daughter will discuss sx with pt's neurologist, which is reasonable. PLAN Stop polymyxin Erythromycin ointment qhs OU Malignant melanoma of conjunctiva, left 09/15/19 Overview [...] (margins positive for MIHIR). Assessment & Plan (08/02/2024 4:55 PM CDT): Last seen by Dr. Soares 11/2023, missed follow up Exam appears stable today Will schedule for next available appt with Dr. Soares Assessment & Plan (12/16/2022 12:36 PM CDT): [...] tumor 09/14/22 OS and was sent to [facility] The path was read as conj melanoma [...] 04/03/2018 Assessment & Plan (06/17/2024 12:44 PM YARN DUMPER): Mrs. Mckoy was doing well overall. She [...] hydrated Assessment & Plan (06/09/2023 1:32 PM YARN DUMPER): Mrs. Mckoy presented for a follow up. [...] is scheduled to follow up with her warehouser today post surgical removal of melanoma. Recommendations [...] She was drinking boost. She lived at [facility] in assisted living and her daughter [...] Our office will fax OT/PT orders to [facility] ATTN Alba at [phone] A message will be sent to the [...] management Assessment & Plan (04/28/2021 2:22 PM YARN DUMPER): Ms. Haven Mckoy is a 85 y.o. [...] encounter. Assessment & Plan (06/17/2020 11:03 AM YARN DUMPER): Ms. Haven Mckoy is a 84 y.o. female, who presents for follow-up for Parkinson's disease (PD), complicated by low back pain. 1. PD. She is about the same since the last visit. She continues to have dry starch operator stiffness and increase in nighttime carbidopa-levodopa CR has not helped. We discussed gabapentin and she was willing to try. - Start gabapentin 100 mg with titration to 3 capsules at bedtime. Titration schedule was given through [employer]. Additional doses changes may be needed. - [...] effects were discussed during the encounter, including dry starch operator sedation with gabapentin. Assessment & Plan [...] 2 tablets at bedtime to help with dry starch operator off. - Continue carbidopa-levodopa 25-100 mg at the current dose. - Establish a regular exercise routine. - She should discuss with PCP about the use of BP medication and the vertigo. Assessment & Plan (03/21/2019 4:34 PM YARN DUMPER): Ms. Haven Mckoy is a 83 y.o. [...] on file Legal Sex Female 8:35 PM YARN DUMPER Gender Identity Female 01/25/2022 6:38 PM CDT Sexual Orientation Not on file Last Filed Vital Signs Vital Sign Reading Time Taken Comments Blood Pressure 130/80 06/17/2024 11:54 AM YARN DUMPER Pulse 66 06/17/2024 11:54 AM YARN DUMPER Temperature 36.1 C (97 F) 12/02/2022 10:25 AM CDT Respiratory Rate 17 12/02/2022 3:40 PM CDT Oxygen Saturation 95% 12/02/2022 3:40 PM CDT Inhaled Oxygen Concentration - - Weight 61.7 kg (136 lb) 06/17/2024 11:54 AM YARN DUMPER Height 162.6 cm (5' 4 ) 06/17/2024 11:54 AM YARN DUMPER Body Mass Index 23.34 06/17/2024 11:54 AM YARN DUMPER Plan of Treatment Not on file Insurance [employer] MEDICARE GOLD [facility] Member Subscriber Plan / Payer (Ef fective 2019-Present) Name:Haven Mckoy Brien Relation to Subscriber:Self Name:Haven Mckoy Payer ID:[id number] (NAIC) Type:Not on file Address: [address] [place] [id number] IDPA [employer] MEDICARE GOLD IDOH AET MEDICARE GOLD Care Teams Scanning Coordinator Relationship Specialty Start Date End Date Luis Almeida DO PCP - General Internal Medicine 01/06/21
--- OUTSIDE RECORDS SUMMARY | 2024-08-04 11:24 | XMS_ITS | Clinical Summary ---
Author Organization [facility] Address [address] [place] [address] Care Team Providers Care Research Support Specialist Name Role Phone Luis Almeida DO Primary Care Provider [phone] Allergies Active Allergy Reactions Criticality Noted Date [...] tumor 09/14/22 OS and was sent to [facility] The path was read as conj melanoma [...] 04/03/2018 Assessment & Plan (06/17/2024 12:44 PM FINANCIAL OPERATIONS ANALYST): Mrs. Mckoy was doing well overall. She [...] hydrated Assessment & Plan (06/09/2023 1:32 PM FINANCIAL OPERATIONS ANALYST): Mrs. Mckoy presented for a follow up. [...] is scheduled to follow up with her ring attacher today post surgical removal of melanoma. Recommendations [...] orders to [facility] ATTN Alba at [phone] A message will be sent to the [...] management Assessment & Plan (04/28/2021 2:22 PM FINANCIAL OPERATIONS ANALYST): Ms. Haven Mckoy is a 85 y.o. [...] encounter. Assessment & Plan (06/17/2020 11:03 AM FINANCIAL OPERATIONS ANALYST): Ms. Haven Mckoy is a 84 y.o. female, who presents for follow-up for Parkinson's disease (PD), complicated by low back pain. 1. PD. She is about the same since the last visit. She continues to have pigskin trimmer stiffness and increase in nighttime carbidopa-levodopa CR has not helped. We discussed gabapentin and she was willing to try. - Start gabapentin 100 mg with titration to 3 capsules at bedtime. Titration schedule was given through [employer]. Additional doses changes may be needed. - [...] effects were discussed during the encounter, including pigskin trimmer sedation with gabapentin. Assessment & Plan (12/16/2019 [...] 2 tablets at bedtime to help with pigskin trimmer off. - Continue carbidopa-levodopa 25-100 mg at the current dose. - Establish a regular exercise routine. - She should discuss with PCP about the use of BP medication and the vertigo. Assessment & Plan (03/21/2019 4:34 PM FINANCIAL OPERATIONS ANALYST): Ms. Haven Mckoy is a 83 y.o. [...] Date Type Department Care Team Description 08/02/2024 1:15 PM CDT Office Visit [facility] Ophthalmology [address] [place] [address] 1st [place] [id number] Joselyn Sequeira MD Eye pain, left (Primary Dx); Malignant melanoma of conjunctiva, left (HCC) 08/02/2024 Telephone [facility] Movement Disorders [address] [facility] [address] [place] [id number] Racquel Etienne MD 08/01/2024 Telephone [facility] [address] [place] [address] No, Physician Right eye pain; New symptoms/ FYI 07/23/2024 Telephone [facility] Movement Disorders [address] [facility] [address] [place] [id number] Racquel Etienne MD 07/18/2024 Telephone [facility] ([facility] - [facility] E[facility] [address] [facility] 11th [place] [address] [place] [phone] Laine Aguilera, 06/27/2024 Telephone [facility] Ophthalmology [address] [place] [address] 1st [place] [address] Reyna Lewis COA 06/17/2024 12:00 PM FINANCIAL OPERATIONS ANALYST Office Visit [facility] Movement Disorders [address] [facility] [address]th [place] [address] Elizabeth Barriga, EDITH Parkinson disease (HCC) from Last 3 Months Immunizations Immunization Administration Dates Next Due Influenza, Trivalent, High D ose, Split, Preservative Free, Intramuscular 06/14/2017 Surgical History Surgery Date Site/Laterality Comments MD TOTAL ABDOMINAL HYSTERECT W/WO RMVL TUBE OVARY Hysterectomy - (Added by TW Conv) MD COLECTOMY PARTIAL W/ANASTOMOSIS Partial Colectomy - (Added [...] on file Legal Sex Female 8:35 PM FINANCIAL OPERATIONS ANALYST Gender Identity Female 01/25/2022 6:38 PM CDT Sexual Orientation Not on file Obstetrics History Last Filed Vital Signs Vital Sign Reading Time Taken Comments Blood Pressure 130/80 06/17/2024 11:54 AM FINANCIAL OPERATIONS ANALYST Pulse 66 06/17/2024 11:54 AM FINANCIAL OPERATIONS ANALYST Temperature 36.1 C (97 F) 12/02/2022 10:25 AM CDT Respiratory Rate 17 12/02/2022 3:40 PM CDT Oxygen Saturation 95% 12/02/2022 3:40 PM CDT Inhaled Oxygen Concentration - - Weight 61.7 kg (136 lb) 06/17/2024 11:54 AM FINANCIAL OPERATIONS ANALYST Height 162.6 cm (5' 4 ) 06/17/2024 11:54 AM FINANCIAL OPERATIONS ANALYST Body Mass Index 23.34 06/17/2024 11:54 AM FINANCIAL OPERATIONS ANALYST Plan of Treatment Health Maintenance Due Date Last Done Comments DTaP/Tdap/Td Vaccine (1 - Tdap) 10/24/1946 Hepatitis B Screening 1953 Pneumococcal vaccine 65+ (1 of 1 - PCV) 1986 Zoster Vaccine (1 of 2) 1986 Well Visit 65+ 2001 Fall Risk Assessment 12/03/2023 12/02/2022 Influenza Vaccine (#1) 2024 06/14/2017 Depression Screening 12/07/2024 12/08/2023 Insurance AETNA MEDICARE GOLD [facility] IDPR AETNA MEDICARE GOLD [facility] AETNA MEDICARE GOLD Care Teams Research Support Specialist Relationship Specialty Start Date End Date Luis Almeida DO PCP - General Internal Medicine 01/06/21
--- NOTE | 2024-08-04 11:44 | ECG_ITS ---
Test Date: 2024-08-04 12:28:54 Measurements Intervals [place] Rate: 48 P: 187 [place]: 143 QRS: 23 QRSD: 113 T: -28 QT: 518 QTc: 465 Interpretive Statements ECTOPIC ATRIAL BRADYCARDIA LEFT VENTRICULAR HYPERTROPHY AND ST-T CHANGE [VOLTAGE CRITERIA PLUS ST/T ABNORMALITY] POSSIBLE SEPTAL MYOCARDIAL INFARCTION , OF INDETERMINATE AGE [30 ms Q WAVE IN V1/V2] INFERIOR MYOCARDIAL INFARCTION , OF INDETERMINATE AGE [40+ ms Q WAVE AND/OR ST/T ABNORMALITY IN II/aVF] Compared to ECG 07/02/2024 08:59:08 Bradycardia, now present Sinus rhythm no longer present ST (T wave) deviation still present Myocardial infarct finding still present Electronically Signed On 08-05-2024 16:31:39 CDT by Ralph Hernandez M.D.
--- NOTE | 2024-08-04 11:45 | ED_ITS ---
HPI - General Adult General Chief complaint: Fall Stated complaint: GLF-head injury Time Seen by Provider: 08/04/24 11:06 History of Present Illness HPI narrative: 88-year-old female presents to the emergency department for evaluation after having a ground level fall. Patient does have history Parkinson's disease, paroxysmal AFib and patient has had recent admissions for acute kidney injury secondary to dehydration and poor oral intake. Patient's family is present with her in the emergency department today and states she is still at her baseline mental status. Patient is alert oriented but somewhat slow to respond. Patient has been on gabapentin and tramadol for pain control Related Data Home Medications ?Medication ?Instructions ?Recorded ?Confirmed ?Last Taken ?Type carbidopa 25 mg-levodopa 100 mg 1 tablet PO TID 09/08/21 08/04/24 06/28/24 History tablet carbidopa ER 50 mg-levodopa 200 mg 2 tablet PO QHS 09/08/21 08/04/24 06/27/24 History tablet,extended release mirtazapine 15 mg tablet 15 mg PO QHS 06/21/22 08/04/24 06/27/24 History docusate sodium 100 mg capsule 100 mg PO HS PRN constipation 07/24/24 08/04/24 Unknown History (Colace) ondansetron 4 mg disintegrating 4 mg PO Q8H PRN nausea and vomiting 07/24/24 08/04/24 Unknown History tablet levothyroxine 25 mcg capsule 50 mcg PO DAILY 08/04/24 08/04/24 Unknown History Allergies Allergy/AdvReac Type Severity Reaction Status Date / Time Sulfa (Sulfonamide Allergy Unknown Hives Verified 07/24/24 18:25 Antibiotics) epinephrine Allergy Unknown Verified 07/24/24 18:25 Review of Systems 2 Review of Systems: All systems reviewed & are unremarkable except as noted in HPI and below PMFSH Past Medical History Medical History (Updated 08/04/24 @ 13:35 by Miguel Rooney MD) Orthostatic hypotension due to Parkinson disease Right-sided heart failure Depression Severe pulmonary hypertension Paroxysmal atrial fibrillation Diastolic dysfunction Colon cancer 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 Dementia progressive memory changes since early 2023 Hearing Loss 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 Thalassemia Hypertension Parkinson disease Surgical History Surgical History History of hysterectomy History of tonsillectomy and adenoidectomy Status post cataract extraction of both eyes with insertion of intraocular lens H/O colectomy (1995) Right hemicolectomy with end-to-end anastomosis Due to colon cancer, most recent colonoscopy 2010 Knee joint replacement status Hx of appendectomy Family History Family History Father Brain tumor Mother Breast cancer Grandparent Diabetes mellitus Son , at age 62 Alcoholism Dilated cardiomyopathy Social History Social History Social History: Healthcare power of health care attorney: Tara Lock, daughter. Code status: Full code. Smoking status: Never smoker Alcohol intake: never Substance use: never Do You Feel Safe in your Home?: Yes Lack of Transportation: No Lack of Food: Never True Current Housing: I Have Housing Concerned About Future Housing: No Difficulty Paying Gas/Electric Bills: No Difficulty Paying for Meds: No Currently Unemployed: No Education: Associate Degree Difficulty w/ Childcare or Family Care: No Living arrangements: assisted living Additional living arrangements comments: Assisted living at [facility]. She has a daughter and a son. Ambulates with [employer]. Spiritual care concerns: No Exam 2 Narrative: APPEARANCE: Well appearing, no pain, no distress, well-nourished. HEAD: normocephalic, head contusion on right forehead. EYES: PERRLA/EOMI, conjunctivae clear. NOSE: Normal no drainage EARS:TMS clear with good light reflex. THROAT: Pharynx clear, no exudate. NECK: Supple. No adenopathy, no masses. RESPIRATORY: Airway patent, respirations nonlabored. Clear to auscultation bilaterally, no rales, rhonchi, wheezing. CARDIOVASCULAR: Regular rhythm no but bradycardic ABDOMINAL: Soft, nontender, nondistended, normal bowel sounds MUSCULOSKELETAL: Moves all extremities. Strength/ROM intact, No edema, No calf tenderness. NEURO: Alert. Cranial nerves II through XII intact. Good gait. Good coordination SKIN: Warm, dry. Normal Color Course Vital Signs Vital signs: Vital Signs Temperature 97.9 F 08/04/24 11:01 Pulse Rate 44 L 08/04/24 11:01 Respiratory Rate 16 08/04/24 11:01 Blood Pressure 100/52 L 08/04/24 11:01 Pulse Oximetry 98 08/04/24 11:01 Oxygen Delivery Room Air 08/04/24 11:01 Temperature 97.9 F 08/04/24 11:01 Pulse Rate 59 L 08/04/24 13:55 Respiratory Rate 16 08/04/24 13:55 Blood Pressure 112/50 L 08/04/24 13:55 Pulse Oximetry 99 08/04/24 13:55 Oxygen Delivery Room Air 08/04/24 11:01 Medical Decision Making MDM Narrative Medical decision making narrative: 88-year-old female present to the emergency department for evaluation a head injury. Patient is currently afebrile with no leukocytosis and hemoglobin of 8.3 which is similar to her previous baseline. Patient has an INR 0.9. Patient has no acute abnormalities on her CMP patient does have a TSH 16 but does have a normal free T4. Head CT neck CT showed no acute abnormalities. Family feels the patient was able to ambulate at her baseline. They feel the patient's mental status is at her typical baseline. Patient and family were comfortable the patient going back to rehab. Differential Diagnosis Differential Diagnosis: Subdural hematoma, subarachnoid hemorrhage, dehydration, urinary tract infection, COVID, RSV, influenza a Vital Signs Vital Signs: Vital Signs Temperature 97.9 F 08/04/24 11:01 Pulse Rate 44 L 08/04/24 11:01 Respiratory Rate 16 08/04/24 11:01 Blood Pressure 100/52 L 08/04/24 11:01 Pulse Oximetry 98 08/04/24 11:01 Oxygen Delivery Room Air 08/04/24 11:01 Temperature 97.9 F 08/04/24 11:01 Pulse Rate 59 L 08/04/24 13:55 Respiratory Rate 16 08/04/24 13:55 Blood Pressure 112/50 L 08/04/24 13:55 Pulse Oximetry 99 08/04/24 13:55 Oxygen Delivery Room Air 08/04/24 11:01 Lab Data Lab results reviewed: Yes I reviewed the patient's lab results. 08/04/24 11:39 08/04/24 11:39 Labs: Lab Results 08/04/24 Range/Units 11:39 WBC 5.8 (4.5-10.0) K/mm3 RBC 3.92 L (4.2-5.4) M/mm3 Hgb 8.3 L (12.0-15.0) g/dL Hct 27.0 L (37.0-47.0) % MCV 68.9 L (80-100) fl MCH 21.2 L (26-34) pg MCHC 30.7 L (32-36) g/dl RDW 18.6 H (11.5-14.5) % Plt Count 246 (150-375) k/mm3 MPV 9.4 (7.4-10.4) fl Immature Gran % (Auto) 0.5 (0-0.5) % Neut % (Auto) 80.9 H (45.5-73.1) % Lymph % (Auto) 8.3 L (18.3-44.2) % [place] % (Auto) 7.5 (2.6-8.5) % Eos % (Auto) 2.3 (0-4.4) % Baso % (Auto) 0.5 (0.2-1.2) % Lymph # (Auto) 0.48 L (0.9-3.2) K/mm3 [place] # (Auto) 0.4 (0.1-0.6) K/mm3 Eos # (Auto) 0.1 (0-0.3) K/mm3 Baso # (Auto) 0.0 (0.0-0.1) K/mm3 Abs Immat Gran (auto) 0.03 (0.00-0.031) K/mm3 Absolute Neuts (auto) 4.7 (1.3-6.7) K/mm3 Absolute Nucleated RBC 0.000 (0.0-0.012) K/mm3 Band Neutrophils % Not Reportable Nucleated RBC % 0.0 (0.0-0.2) % Platelet Estimate Adequate (Adequate) Hypochromasia 1+ Anisocytosis 1+ Microcytosis 1+ (NORMAL) Ovalocytes 1+ Schistocytes None seen PT 12.9 (11.1-14.7) Seconds INR 0.9 APTT 35.4 (22.3-36.8) Seconds Sodium 137 (137-145) mmol/L Potassium 3.7 (3.4-5.0) mmol/L Chloride 98 (98-107) mmol/L Carbon Dioxide 34 H (22-30) mmol/L Anion Gap 5 (4-12) mmol/L BUN 29 H D (7-17) mg/dL Creatinine 1.14 H (0.7-1.0) mg/dL Estim Creat Clear Calc 28 ml/min Estimated GFR 45 L (59 - ) Glucose 127 H (65-110) mg/dL Calcium 8.6 (8.4-10.2) mg/dL Magnesium 2.3 (1.6-2.3) mg/dL Total Bilirubin 1.2 (0.2-1.3) mg/dL AST 24 (14-36) U/L ALT 8 (6-35) U/L Alkaline Phosphatase 95 (38-126) U/L Total Protein 6.0 L (6.3-8.2) g/dL Albumin 3.4 L (3.5-5.1) g/dL TSH (Reflex) 16.800 H (0.465-4.68) uIU/mL Free T4 1.15 (0.78-2.19) ng/dL Total T3 0.76 L (0.97-1.69) NG/ML Imaging Data Radiologist's impression: Impressions Head CT 08/04/24 11:58 Impression: No acute intracranial hemorrhage or suspicious mass effect. Cervical Spine CT 08/04/24 12:00 Impression: Straightening of the normal curvature of the cervical spine, likely muscular in origin. Degenerative disease, without acute fracture. Discharge Plan Discharge Clinical Impression: Head injury Patient Disposition: NH Care Home/Asst Living Condition: Stable Instructions: Antibiotic Form, Head Injury (ED) Additional Instructions: Have close follow-up with your primary care physician. Have follow-up with Cardiology. If you have any worsening symptoms then please call or return to the emergency department. Patient Language: [place] Prescriptions: No Action mirtazapine 15 mg tablet 15 mg PO QHS amiodarone [Pacerone] 200 mg tablet 200 mg PO DAILY Qty: 30 5RF carbidopa-levodopa 50-200 mg tablet extended release 2 tablet PO QHS carbidopa-levodopa 25-100 mg tablet 1 tablet PO TID Rx Instructions: 3 tabs at 8:00 AM, 12:00 PM, and 6:00 PM. levothyroxine 25 mcg capsule 50 mcg PO DAILY docusate sodium [Colace] 100 mg capsule 100 mg PO HS PRN (Reason: constipation) ondansetron 4 mg tablet,disintegrating 4 mg PO Q8H PRN (Reason: nausea and vomiting) tramadol 50 mg tablet 50 mg PO Q6H PRN (Reason: pain) Qty: 10 0RF furosemide 40 mg tablet 40 mg PO DAILY Qty: 60 5RF acetaminophen 500 mg tablet 500 mg PO Q8H PRN (Reason: pain) Qty: 90 2RF gabapentin 300 mg capsule 300 mg PO BID Qty: 120 1RF Follow-up/Referrals: Luis Almeida DO [Primary Care Provider] -
[2024-08-04 11:49] LABS: Basophils Percent Auto 0.5 % (0.2-1.2); Eosinophils Absolute Auto 0.1 K/mm3 (0-0.3); Eosinophils Percent Auto 2.3 % (0-4.4); Hemoglobin 8.3 g/dL (12.0-15.0); Immature Granulocyte Absolute 0.03 K/mm3 (0.00-0.031); Immature Granulocyte Percent A 0.5 % (0-0.5); Lymphocytes Absolute Auto 0.48 K/mm3 (0.9-3.2); Lymphocytes Percent Auto 8.3 % (18.3-44.2); Mean Corpuscular HGB Conc 30.7 g/dl (32-36); Mean Corpuscular Hemoglobin 21.2 pg (26-34); Mean Corpuscular Volume 68.9 fl (80-100); Mean Platelet Volume 9.4 fl (7.4-10.4); Monocytes Absolute Auto 0.4 K/mm3 (0.1-0.6); Monocytes Percent Auto 7.5 % (2.6-8.5); Neutrophils Absolute Auto 4.7 K/mm3 (1.3-6.7); Neutrophils Percent Auto 80.9 % (45.5-73.1); Platelet Count Result 246 k/mm3 (150-375); Red Blood Count 3.92 M/mm3 (4.2-5.4); Red Cell Distribution Width 18.6 % (11.5-14.5); White Blood Count 5.8 K/mm3 (4.5-10.0)
[2024-08-04 12:00] LABS: INR 0.9; Prothrombin Time 12.9 Seconds (11.1-14.7)
[2024-08-04 12:01] LABS: Alanine Aminotransferase 8 U/L (6-35); Albumin Level 3.4 g/dL (3.5-5.1); Alkaline Phosphatase 95 U/L (38-126); Anion Gap 5 mmol/L (4-12); Aspartate Amino Transferase 24 U/L (14-36); Bilirubin,Total 1.2 mg/dL (0.2-1.3); Blood Urea Nitrogen 29 mg/dL (7-17); Calcium 8.6 mg/dL (8.4-10.2); Carbon Dioxide 34 mmol/L (22-30); Chloride 98 mmol/L (98-107); Estimated CRCL calculation 28 ml/min; Estimated Glomerular Filt Rate 45; Glucose 127 mg/dL (65-110); Magnesium 2.3 mg/dL (1.6-2.3); Partial Thromboplastin Time 35.4 Seconds (22.3-36.8); Potassium 3.7 mmol/L (3.4-5.0); Sodium 137 mmol/L (137-145)
[2024-08-04] MEDS: LACTATED RINGERS 1,000 ML 500 ML IV CONT (12:11)
[2024-08-04 12:18] LABS: Anisocytosis 1+; Microcytosis 1+ (NORMAL); Platelet Estimate Adequate (Adequate)
[2024-08-04 12:19] LABS: Hypochromasia 1+; Ovalocytes 1+; Schistocytes None Seen
[2024-08-04 13:02] LABS: Free T4 Free Thyroxine Reflex 1.15 ng/dL (0.78-2.19)
[2024-08-04] MEDS: CARBIDOPA/LEVODOPA 25/100 MG TABLET 3 TABLET PO (13:05)
[2024-08-04 13:07] VITALS: BP 115/40; PULSE 52; RESP 18; O2SAT 98
[2024-08-04 13:42] LABS: Total Triiodothyronine (T3) 0.76 NG/ML (0.97-1.69)
[2024-08-04 13:55] VITALS: BP 112/50; PULSE 59; RESP 16; O2SAT 99
== END 2024-08-04 13:58 ==
PROVIDERS: Emergency Provider Emergency Medicine; PCP Internal Medicine
DX: S09.90XA Unspecified injury of head, initial encounter (principal); W18.30XA Fall on same level, unspecified, initial encounter; G20.A1 Parkinson's disease without dyskinesia, without mention of fluctuations; I48.0 Paroxysmal atrial fibrillation; I50.30 Unspecified diastolic (congestive) heart failure; I11.0 Hypertensive heart disease with heart failure; Z85.038 Personal history of other malignant neoplasm of large intestine; Z85.820 Personal history of malignant melanoma of skin; F03.90 Unspecified dementia, unspecified severity, without behavioral disturbance, psychotic disturbance, mood disturbance, and anxiety
CPT/HCPCS: 36415; 70450; 72125; 80053; 83735; 84439; 84443; 84480; 85025; 85610; 85730; 93005; 96360; 99284; A9270; J7120

== ENCOUNTER 2024-08-06 08:27 | Emergency (ER) | payer MEDICARE, MEDICAID, SELFPAY ==
[2024-08-06] VITALS (25 sets, daily range): BP systolic 70–145; BP diastolic 42–84; PULSE 47–89; RESP 14–18; TEMP 33.6–36.5; O2SAT 95–97
--- NOTE | ~2024-08-06 | XR_ITS ---
EXAMINATION: XR chest 1V DATE: 08/06/2024 09:44 INDICATION: Cough and weakness. TECHNIQUE: A single frontal view of the chest was obtained. COMPARISON: Chest single view 07/01/2024, CT abdomen and pelvis 09/29/2018 FINDINGS: There are airspace opacities at left lung base. No pleural effusion or pneumothorax. Cardio megaly is noted. There is a prominent left pericardial fat pad. IMPRESSION: 1. Airspace opacities at left lung base, consistent with atelectasis versus pneumonia. 2. Cardiomegaly. Reviewed, dictated and finalized at location A. IMPRESSION: 1. Airspace opacities at left lung base, consistent with atelectasis versus pne umonia. 2. Cardiomegaly.
--- NOTE | ~2024-08-06 | CT_ITS ---
CT brain & sinus wo con Ordering provider: Roberto Pathak MD History: 88 years Female with . syncope, recent ENT procedures . Comparison: None. Technique: CT of the head without contrast. Radiation reduction technique utilized.The dose-length product was 832.33 mGy-cm. FINDINGS: BRAIN PARENCHYMA AND CSF SPACES: Mild leukoaraiosis and diffuse cortical atrophy. Mild atheromatous d isease. No midline shift, mass effect or hemorrhage. The brain parenchyma and CSF spaces are otherwi se normal. VISUALIZED PARANASAL SINUSES: Well aerated. MASTOIDS: Well aerated. BONES: The bones appear intact. SOFT TISSUES: Visualized nasopharynx is normal. Small soft tissue density in the right frontal scalp most likely a hematoma. Otherwise, Superficial soft tissues are normal. IMPRESSION: No acute intracranial findings. Reviewed, dictated and finalized at location A.
--- NOTE | 2024-08-06 08:33 | ECG_ITS ---
Test Date: 2024-08-06 08:37:23 Measurements Intervals [place] Rate: 45 P: -9 IN: 193 QRS: -9 QRSD: 104 T: 128 QT: 524 QTc: 458 Interpretive Statements SINUS BRADYCARDIA LEFT VENTRICULAR HYPERTROPHY AND ST-T CHANGE [VOLTAGE CRITERIA PLUS ST/T ABNORMALITY] Compared to ECG 08/04/2024 12:28:54 NO SIGNIFICANT CHANGES Electronically Signed On 08-06-2024 16:41:33 CDT by Sanju Schaefer M.D.
[2024-08-06 08:43] LABS: Basophils Percent Auto 0.3 % (0.2-1.2); Eosinophils Absolute Auto 0.1 K/mm3 (0-0.3); Eosinophils Percent Auto 1.6 % (0-4.4); Hematocrit 27.9 % (37.0-47.0); Hemoglobin 8.6 g/dL (12.0-15.0); Immature Granulocyte Absolute 0.05 K/mm3 (0.00-0.031); Immature Granulocyte Percent A 0.8 % (0-0.5); Lymphocytes Percent Auto 6.3 % (18.3-44.2); Mean Corpuscular HGB Conc 30.8 g/dl (32-36); Mean Corpuscular Hemoglobin 21.4 pg (26-34); Mean Corpuscular Volume 69.4 fl (80-100); Mean Platelet Volume 9.6 fl (7.4-10.4); Monocytes Absolute Auto 0.4 K/mm3 (0.1-0.6); Monocytes Percent Auto 5.9 % (2.6-8.5); Neutrophils Absolute Auto 5.5 K/mm3 (1.3-6.7); Neutrophils Percent Auto 85.1 % (45.5-73.1); Platelet Count Result 280 k/mm3 (150-375); Red Blood Count 4.02 M/mm3 (4.2-5.4); Red Cell Distribution Width 18.7 % (11.5-14.5); White Blood Count 6.4 K/mm3 (4.5-10.0)
[2024-08-06] MEDS: ATROPINE SULFATE 1 MG/10 ML SYRINGE IV PUSH (08:47)
[2024-08-06] MEDS: SODIUM CHLORIDE 0.9% IV 1,000 ML 999 ML (08:52)
[2024-08-06] MEDS: DOPamine 400 MG/D5W 250 ML 400 MG/250 ML BAG 10.74 MG IV CONT (08:53)
[2024-08-06 08:54] LABS: INR 0.9; Prothrombin Time 13.1 Seconds (11.1-14.7)
[2024-08-06 08:55] LABS: Partial Thromboplastin Time 33.3 Seconds (22.3-36.8)
--- NOTE | 2024-08-06 08:55 | PC.NURSE ---
Dr. Pathak at bedside, performed ultrasound of pt heart. Aware of bradycardia. Pt medicated with Atropine, IV fluids & Dopamine drip started.
--- NOTE | 2024-08-06 08:56 | ED_ITS ---
HPI - Syncope General Chief Complaint: Syncope Stated Complaint: unresponsive episode, ?aspiration Time Seen by Provider: 08/06/24 08:29 History of Present Illness HPI narrative: 88-year-old female presenting from detention facility with concerns of an episode of unresponsiveness where they believed that she potentially had a cardiac arrest. When EMS arrived patient was minimally responsive and noted to be bradycardic. No CPR efforts were initiated according to the report but they did clear her airway of some aspiration and she had perked up slightly. Patient presents with unstable vital signs, blood pressure 70/42, pulse low 40s, low temperature 36.3?. 95% on room air, presently awake and able to verbalize but slow to respond to questioning, symmetric strength and sensation appreciated. No facial asymmetries but she does have obvious bruising throughout both her temples from previous injuries these past few weeks according to the EMR review. No new injuries according to the patient or the report from nursing facility. She is on Eliquis for AFib. Has a history of hypothyroidism taking levothyroxine, Parkinson's disease and Parkinson's dementia. Related Data Home Medications ?Medication ?Instructions ?Recorded ?Confirmed ?Last Taken ?Type carbidopa 25 mg-levodopa 100 mg 1 tablet PO TID 09/08/21 08/04/24 06/28/24 History tablet carbidopa ER 50 mg-levodopa 200 mg 2 tablet PO QHS 09/08/21 08/04/24 06/27/24 History tablet,extended release mirtazapine 15 mg tablet 15 mg PO QHS 06/21/22 08/04/24 06/27/24 History docusate sodium 100 mg capsule 100 mg PO HS PRN constipation 07/24/24 08/04/24 Unknown History (Colace) ondansetron 4 mg disintegrating 4 mg PO Q8H PRN nausea and vomiting 07/24/24 08/04/24 Unknown History tablet levothyroxine 25 mcg capsule 50 mcg PO DAILY 08/04/24 08/04/24 Unknown History amiodarone 100 mg tablet 100 mg PO DAILY 08/05/24 Unknown History Allergies Allergy/AdvReac Type Severity Reaction Status Date / Time Sulfa (Sulfonamide Allergy Unknown Hives Verified 08/06/24 10:35 Antibiotics) epinephrine Allergy Unknown Verified 08/06/24 10:35 Review of Systems 2 Review of Systems: As reviewed above in HPI, limited secondary to mental status and present medical condition ROS unobtainable: Yes unobtainable due to medical condition and unobtainable due to mental status [facility] Past Medical History Medical History Orthostatic hypotension due to Parkinson disease Right-sided heart failure Depression Severe pulmonary hypertension Paroxysmal atrial fibrillation Diastolic dysfunction Colon cancer 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 Dementia progressive memory changes since early 2023 Hearing Loss 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 Thalassemia Hypertension Parkinson disease Surgical History Surgical History History of hysterectomy History of tonsillectomy and adenoidectomy Status post cataract extraction of both eyes with insertion of intraocular lens H/O colectomy (1995) Right hemicolectomy with end-to-end anastomosis Due to colon cancer, most recent colonoscopy 2010 Knee joint replacement status Hx of appendectomy Family History Family History Father Brain tumor Mother Breast cancer Grandparent Diabetes mellitus Son , at age 62 Alcoholism Dilated cardiomyopathy Social History Social History Social History: Healthcare power of stars specialist: Tara Lock, daughter. Code status: Full code. Smoking status: Never smoker Alcohol intake: never Substance use: never Do You Feel Safe in your Home?: Yes Lack of Transportation: No Lack of Food: Never True Current Housing: I Have Housing Concerned About Future Housing: No Difficulty Paying Gas/Electric Bills: No Difficulty Paying for Meds: No Currently Unemployed: No Education: Associate Degree Difficulty w/ Childcare or Family Care: No Living arrangements: assisted living Additional living arrangements comments: Assisted living at [facility]. She has a daughter and a son. Ambulates with [employer]. Spiritual care concerns: No Exam 2 Narrative: GENERAL: Lethargic, ill, thin and frail appearing, bruising over both arms legs and face HEAD: Bruising over bilateral parts the face and temples, potentially old, no scalp hematoma formation. EYES: Pupils are 2 mm and responsive. Extraocular movements are intact. ENT: Nares clear, no rhinorrhea or epistaxis. Mucous membranes dry. NECK: Supple. CHEST: [Clear to auscultation. No respiratory distress.] HEART: Bradycardic rate, regular rhythm. No murmur heard. Cool extremities, 1+ pulses ABDOMEN: [Soft, nondistended], [nontender], [No rigidity or guarding] EXTREMITIES: Normal range of motion. [No edema.] SKIN: Warm, dry, no rash. NEURO: Moves both upper and lower extremities with symmetric strength and sensation appears intact. Awake and able to answer questions although slow to respond and appears lethargic. Protecting her airway at this time. No facial asymmetry. Course Vital Signs Vital signs: Vital Signs Temperature 36.3 C L 08/06/24 08:29 Pulse Rate 51 L 08/06/24 08:29 Respiratory Rate 18 08/06/24 08:29 Blood Pressure 70/42 L 08/06/24 08:29 Pulse Oximetry 95 08/06/24 08:29 Oxygen Delivery Room Air 08/06/24 08:29 Temperature 35.2 C L 08/06/24 12:18 Pulse Rate 71 08/06/24 12:15 Respiratory Rate 16 08/06/24 12:15 Blood Pressure 136/70 08/06/24 12:15 Pulse Oximetry 96 08/06/24 12:15 Oxygen Delivery Room Air 08/06/24 08:29 Procedures Other Procedure Procedure 1: Other Procedure: Procedure: Bedside echocardiogram Indication: Unstable bradycardia Technique: Multiple views including apical 4 chamber, subxiphoid, parasternal long and parasternal short axis obtained. Findings: Sinus bradycardia with collapsed IVC, no pericardial effusions, no right ventricular strain, aorta appears unremarkable. Normal appearing ejection fraction. MDM - Syncope MDM Narrative Medical decision making narrative: 88-year-old female with history of Parkinson's disease, Parkinson's dementia, paroxysmal AFib on Eliquis, hypothyroidism on levothyroxine. She presents today with altered mental status and concerns for severe bradycardia hypotension. Report by long-term was that patient was unresponsive and they were concerned that she had a cardiac arrest. Reportedly no CPR efforts were given aside from clearing her airway which appear to have some unchewed food. EMS arrived to find the patient is severely bradycardic but slowly mentating and awake. Patient herself presently is hypotensive, bradycardic, slightly hypothermic but awake and moving all extremities equally. Has no focal deficits appreciated, has a history dementia and slow to respond to questioning at this time. Not a great historian, not able to tell me what happened today. Has evidence of recent trauma to both her face, head and extremities. Recent falls according to the EMR in was here 2 days ago for a fall. Patient herself is currently unstable with bradycardia and hypotension. ACLS was initiated, she was given 1 mg of atropine which improved her heart rate to the 50s and blood pressure improved to the 90s. She is given a L of fluid, 100 mcg of levothyroxine for suspected myxedema type picture verses hypothyroidism causing the bradycardia. A bedside echocardiogram was conducted which shows no decompensation, no heart failure, sinus rhythm that appears bradycardic, no atrial enlargement no ventricular strain, IVC is flat collapsed, no pericardial effusion. Dopamine infusion was started at 5 micrograms/kilogram per minute and titrated to mean arterial pressure is a 65. Spoke to Interventional Cardiology Dr. Schaefer regarding patient's presentation with unstable bradycardia and potential need for either pacemaker placement or pacing if this is cardiac in nature rather than endocrine. Suspicion presently was for endocrinology related symptomatology rather than cardiac disease however will order cardiac workup, LFTs, CBC, VBG, chest x-ray, serial EKGs, CT scans of the head and chest x-ray obtained. Spoke to patient's personal dynamometer mechanic Dr. Amos as well with recommendations from Cardiology to transfer this patient to a higher level of care center with pacemaker capabilities and endocrinology. Patient is also noted to be on amiodarone which could be causing thyroid issues as well precipitate her clinical presentation this time. Patient is currently stabilized on a dopamine infusion with a heart rate in the 80s, blood pressure 95/53 map 65. Mentating appropriately. Workup undergoing and transfer efforts will be initiated. Awaiting family members arrival to discuss goals of care and plan at bedside. Patient re-evaluated frequently at bedside and doing well currently on a maintenance dopamine infusion. Blood pressure improved to the 130s, pulse in the 70s. She is hypothermic on temperature sensing [place] which again raises suspicion for potential endocrine pathology going on here. She has an elevated TSH. Na Hugger was applied. Family at bedside wants full measures and full code status and wants to transfer to [place]. Workup shows no leukocytosis, anemia at her baseline. Platelets at her baseline. Normal coagulation panel. VBG shows a pH of 7.41, pCO2 of 50, bicarb of 31 indicative of slightly acute acidosis but this is also a venous sample and could also be within normal limits as she is not have any respiratory symptoms at this time and breathing comfortably on room air. Electrolytes largely unremarkable. Normal creatinine, normal glucose, normal LFTs. Negative troponin. Reflex T4 and T3 within normal limits. Urinalysis without any signs of infection. Unremarkable CT of the head CT sinuses. Chest x-ray shows no consolidations suspicious for pneumonia on my interpretation. Spoke to the [facility] transfer line as well as the dynamometer mechanic at [facility]. She was accepted to an ICU bed at [facility] with ALS ambulance arranged at this time. Accepting physician Dr. Fernandez. Medical Records Attestation: I reviewed the patient's medical records. Lab Data Attestation: I reviewed the patient's lab results. 08/06/24 08:36 08/06/24 08:37 Labs: Lab Results 08/06/24 08/06/24 08/06/24 Range/Units 08:36 08:37 08:37 WBC 6.4 (4.5-10.0) K/mm3 RBC 4.02 L (4.2-5.4) M/mm3 Hgb 8.6 L (12.0-15.0) g/dL Hct 27.9 L (37.0-47.0) % MCV 69.4 L (80-100) fl MCH 21.4 L (26-34) pg MCHC 30.8 L (32-36) g/dl RDW 18.7 H (11.5-14.5) % Plt Count 280 (150-375) k/mm3 MPV 9.6 (7.4-10.4) fl Immature Gran % (Auto) 0.8 H (0-0.5) % Neut % (Auto) 85.1 H (45.5-73.1) % Lymph % (Auto) 6.3 L (18.3-44.2) % [place] % (Auto) 5.9 (2.6-8.5) % Eos % (Auto) 1.6 (0-4.4) % Baso % (Auto) 0.3 (0.2-1.2) % Lymph # (Auto) 0.40 L (0.9-3.2) K/mm3 [place] # (Auto) 0.4 (0.1-0.6) K/mm3 Eos # (Auto) 0.1 (0-0.3) K/mm3 Baso # (Auto) 0.0 (0.0-0.1) K/mm3 Abs Immat Gran (auto) 0.05 H (0.00-0.031) K/mm3 Absolute Neuts (auto) 5.5 (1.3-6.7) K/mm3 Absolute Nucleated RBC 0.000 (0.0-0.012) K/mm3 Band Neutrophils % Not Reportable Nucleated RBC % 0.0 (0.0-0.2) % Platelet Estimate Adequate (Adequate) Hypochromasia 1+ Anisocytosis 1+ Microcytosis 1+ (NORMAL) Ovalocytes 1+ Schistocytes None seen PT 13.1 (11.1-14.7) Seconds INR 0.9 APTT 33.3 (22.3-36.8) Seconds Sodium Cancelled 138 Potassium Cancelled 3.6 Chloride Cancelled 99 Carbon Dioxide Cancelled 33 H Anion Gap Cancelled 6 BUN Cancelled 23 H Creatinine Cancelled 1.00 Estim Creat Clear Calc Cancelled 32 Estimated GFR Cancelled 52 L Glucose Cancelled 114 H Calcium Cancelled 9.0 Magnesium Cancelled 2.2 Cancelled Total Bilirubin Cancelled 1.6 H AST Cancelled 28 ALT Cancelled 8 Alkaline Phosphatase Cancelled 88 Troponin I < 0.012 (0.000-0.034) ng/mL Total Protein Cancelled 6.0 L Albumin Cancelled 3.6 TSH (Reflex) (0.465-4.68) uIU/mL Free T4 (0.78-2.19) ng/dL Total T3 (0.97-1.69) NG/ML Urine Color (Yellow) Urine Appearance (Clear) Urine pH (5.0-9.0) Ur Specific [place] (1.001-1.035) Urine Protein (Negative) mg/dL Urine Glucose (UA) (Negative) mg/dL Urine Ketones (Negative) mg/dL Ur Blood (Man) (Negative) Urine Nitrate (Negative) Urine Bilirubin (Negative) Urine Urobilinogen (<2.0) mg/dL Leukocyte Esterase Rfl (Negative) DARREL/UL 08/06/24 08/06/24 Range/Units 08:40 09:05 WBC (4.5-10.0) K/mm3 RBC (4.2-5.4) M/mm3 Hgb (12.0-15.0) g/dL Hct (37.0-47.0) % MCV (80-100) fl MCH (26-34) pg MCHC (32-36) g/dl RDW (11.5-14.5) % Plt Count (150-375) k/mm3 MPV (7.4-10.4) fl Immature Gran % (Auto) (0-0.5) % Neut % (Auto) (45.5-73.1) % Lymph % (Auto) (18.3-44.2) % [place] % (Auto) (2.6-8.5) % Eos % (Auto) (0-4.4) % Baso % (Auto) (0.2-1.2) % Lymph # (Auto) (0.9-3.2) K/mm3 [place] # (Auto) (0.1-0.6) K/mm3 Eos # (Auto) (0-0.3) K/mm3 Baso # (Auto) (0.0-0.1) K/mm3 Abs Immat Gran (auto) (0.00-0.031) K/mm3 Absolute Neuts (auto) (1.3-6.7) K/mm3 Absolute Nucleated RBC (0.0-0.012) K/mm3 Band Neutrophils % Nucleated RBC % (0.0-0.2) % Platelet Estimate (Adequate) Hypochromasia Anisocytosis Microcytosis (NORMAL) Ovalocytes Schistocytes PT (11.1-14.7) Seconds INR APTT (22.3-36.8) Seconds Sodium Potassium Chloride Carbon Dioxide Anion Gap BUN Creatinine Estim Creat Clear Calc Estimated GFR Glucose Calcium Magnesium Total Bilirubin AST ALT Alkaline Phosphatase Troponin I (0.000-0.034) ng/mL Total Protein Albumin TSH (Reflex) 24.200 H (0.465-4.68) uIU/mL Free T4 1.21 (0.78-2.19) ng/dL Total T3 0.98 (0.97-1.69) NG/ML Urine Color Yellow (Yellow) Urine Appearance Clear (Clear) Urine pH 7.5 (5.0-9.0) Ur Specific [place] 1.008 (1.001-1.035) Urine Protein Negative (Negative) mg/dL Urine Glucose (UA) Negative (Negative) mg/dL Urine Ketones Negative (Negative) mg/dL Ur Blood (Man) Negative (Negative) Urine Nitrate Negative (Negative) Urine Bilirubin Negative (Negative) Urine Urobilinogen 1.0 (<2.0) mg/dL Leukocyte Esterase Rfl Negative (Negative) DARREL/UL ABG Data ABG results: 08/06/24 09:16 VBG pH 7.415 H* VBG pCO2 50.4 H VBG pO2 103.6 H VBG HCO3 31.6 H O2 Delivery Device Room air O2 Liters/Min 0.0 FiO2 21 Attestation: I personally reviewed and interpreted this ABG as follows: Interpretation: Slight respiratory acidosis, appears chronic with some compensation from the kidneys. Imaging Data My impression: Impressions Head/Sinuses CT 08/06/24 09:59 IMPRESSION: No acute intracranial findings. Chest X-Ray 08/06/24 10:01 IMPRESSION: 1. Airspace opacities at left lung base, consistent with atelectasis versus pneumonia. 2. Cardiomegaly. Critical Care Time Critical Care Time Critical Care Time: Yes Total Critical Care Time: 77 (Critical care time is billed exclusive of the separately billed procedures above.) Discharge Plan Discharge Clinical Impression: Unstable vital signs, Bradycardia, severe sinus, Hypothyroidism Parkinson disease Qualifiers: Dyskinesia presence: unspecified whether dyskinesia Fluctuating manifestations: unspecified whether manifestations fluctuate Qualified Code(s): G20.A1 - Parkinson's disease without dyskinesia, without mention of fluctuations Patient Disposition: Acute Care Hospital Condition: Serious Patient Language: Guatemalan Prescriptions: No Action mirtazapine 15 mg tablet 15 mg PO QHS carbidopa-levodopa 50-200 mg tablet extended release 2 tablet PO QHS carbidopa-levodopa 25-100 mg tablet 1 tablet PO TID Rx Instructions: 3 tabs at 8:00 AM, 12:00 PM, and 6:00 PM. amiodarone 100 mg tablet 100 mg PO DAILY levothyroxine 25 mcg capsule 50 mcg PO DAILY docusate sodium [Colace] 100 mg capsule 100 mg PO HS PRN (Reason: constipation) ondansetron 4 mg tablet,disintegrating 4 mg PO Q8H PRN (Reason: nausea and vomiting) tramadol 50 mg tablet 50 mg PO Q6H PRN (Reason: pain) Qty: 10 0RF furosemide 40 mg tablet 40 mg PO DAILY Qty: 60 5RF acetaminophen 500 mg tablet 500 mg PO Q8H PRN (Reason: pain) Qty: 90 2RF gabapentin 300 mg capsule 300 mg PO BID Qty: 120 1RF Follow-up/Referrals: Luis Almeida DO [Primary Care Provider] - Time of Disposition: 12:33
--- OUTSIDE RECORDS SUMMARY | 2024-08-06 09:02 | XMS_ITS | Clinical Summary ---
Author Organization [facility] Address [address] [place] [address] Care Team Providers Care Top And Seat Cover Fitter Name Role Phone Luis Almeida DO Primary Care Provider [phone] Allergies Active Allergy Reactions Criticality Noted Date [...] OS and was sent to [facility] The path was read as conj [...] 04/03/2018 Assessment & Plan (06/17/2024 12:44 PM PRODUCTION CONTROL SCHEDULER): Mrs. Mckoy was doing well overall. She [...] up as planned in December with Dr. Healdey Fall precaution Assessment & Plan (12/08/2023 12:36 [...] hydrated Assessment & Plan (06/09/2023 1:32 PM PRODUCTION CONTROL SCHEDULER): Mrs. Mckoy presented for a follow up. [...] is scheduled to follow up with her transportation dispatch manager today post surgical removal of melanoma. Recommendations [...] She was drinking boost. She lived at [facility] in assisted living and her daughter [...] Our office will fax OT/PT orders to [facility] ATTN Alba at [phone] A message will be sent to the [...] management Assessment & Plan (04/28/2021 2:22 PM PRODUCTION CONTROL SCHEDULER): Ms. Haven Mckoy is a 85 y.o. [...] encounter. Assessment & Plan (06/17/2020 11:03 AM PRODUCTION CONTROL SCHEDULER): Ms. Haven Mckoy is a 84 y.o. female, who presents for follow-up for Parkinson's disease (PD), complicated by low back pain. 1. PD. She is about the same since the last visit. She continues to have nanotechnologist stiffness and increase in nighttime carbidopa-levodopa CR has not helped. We discussed gabapentin and she was willing to try. - Start gabapentin 100 mg with titration to 3 capsules at bedtime. Titration schedule was given through [employer]. Additional doses changes may be needed. - [...] effects were discussed during the encounter, including nanotechnologist sedation with gabapentin. Assessment & Plan (12/16/2019 [...] 2 tablets at bedtime to help with nanotechnologist off. - Continue carbidopa-levodopa 25-100 mg at the current dose. - Establish a regular exercise routine. - She should discuss with PCP about the use of BP medication and the vertigo. Assessment & Plan (03/21/2019 4:34 PM PRODUCTION CONTROL SCHEDULER): Ms. Haven Mckoy is a 83 y.o. [...] Description 08/02/2024 1:15 PM CDT Office Visit [facility] Ophthalmology [address] [place] [address] 1[address] [place] [phone] Joselyn Sequeira MD Eye pain, left (Primary Dx); Malignant melanoma of conjunctiva, left (HCC) 08/02/2024 Telephone [facility] Movement Disorders [address] [facility] [address] [place] [id number] Racquel Etienne MD 08/01/2024 Telephone [facility] Ophthalmology [address] [place] [address] No, Physician Right eye pain; New symptoms/ FYI 07/23/2024 Telephone [facility] Movement Disorders [address] [facility] [address] [place] [phone] Racquel Etienne MD 07/18/2024 Telephone [facility] ENT [address] [facility] [address] [place] [address] [place] [phone] Laine Aguilera, 06/27/2024 Telephone [facility] Ophthalmology [address] [place] [address] 1[address] [place] [address] Reyna Lewis COA 06/17/2024 12:00 PM PRODUCTION CONTROL SCHEDULER Office Visit [facility] Movement Disorders [address] [facility] [address] [place] [address] Elizabeth Barriga, EDITH Parkinson disease (HCC) from Last 3 Months Immunizations Immunization Administration Dates Next Due Influenza, Trivalent, High D ose, Split, Preservative Free, Intramuscular 06/14/2017 Surgical History Surgery Date Site/Laterality Comments [place] TOTAL ABDOMINAL HYSTERECT W/WO RMVL TUBE OVARY Hysterectomy - (Added by TW Conv) [place] COLECTOMY PARTIAL W/ANASTOMOSIS Partial Colectomy - (Added [...] on file Legal Sex Female 8:35 PM PRODUCTION CONTROL SCHEDULER Gender Identity Female 01/25/2022 6:38 PM CDT Sexual Orientation Not on file Obstetrics History Last Filed Vital Signs Vital Sign Reading Time Taken Comments Blood Pressure 130/80 06/17/2024 11:54 AM PRODUCTION CONTROL SCHEDULER Pulse 66 06/17/2024 11:54 AM PRODUCTION CONTROL SCHEDULER Temperature 36.1 C (97 F) 12/02/2022 10:25 AM CDT Respiratory Rate 17 12/02/2022 3:40 PM CDT Oxygen Saturation 95% 12/02/2022 3:40 PM CDT Inhaled Oxygen Concentration - - Weight 61.7 kg (136 lb) 06/17/2024 11:54 AM PRODUCTION CONTROL SCHEDULER Height 162.6 cm (5' 4 ) 06/17/2024 11:54 AM PRODUCTION CONTROL SCHEDULER Body Mass Index 23.34 06/17/2024 11:54 AM PRODUCTION CONTROL SCHEDULER Plan of Treatment Health Maintenance Due Date Last Done Comments DTaP/Tdap/Td Vaccine (1 - Tdap) 10/24/1946 Hepatitis B Screening 1953 Pneumococcal vaccine 65+ (1 of 1 - PCV) 1986 Zoster Vaccine (1 of 2) 1986 Well Visit 65+ 2001 Fall Risk Assessment 12/03/2023 12/02/2022 Influenza Vaccine (#1) 2024 06/14/2017 Depression Screening 12/07/2024 12/08/2023 Insurance AETNA MEDICARE GOLD [facility] IDND AETNA MEDICARE GOLD [facility] AETNA MEDICARE GOLD Care Teams Top And Seat Cover Fitter Relationship Specialty Start Date End Date Luis Almeida DO PCP - General Internal Medicine 01/06/21
--- OUTSIDE RECORDS SUMMARY | 2024-08-06 09:02 | XMS_ITS | Referral Summary ---
Author Organization [facility] al Address [address] [place] [address] Care Team Providers Care Cnc Maintenance Technician Name Role Phone Luis Almeida DO Primary Care Provider [phone]- [phone] Encounters Date Type Department Care Team Description 08/02/2024 Telephone [facility] Movement Disorders [address] [place] [address] Advanced Medicine 7th [place] [address] Racquel Etienne MD 08/02/2024 1:15 PM CDT Office Visit [facility] Ophthalmology [address] [place] [phone] Joselyn Sequeira MD Eye pain, left (Primary Dx); Malignant melanoma of conjunctiva, left (HCC) 08/01/2024 Telephone [facility] Ophthalmology [address] [place], [place] [id number] No, Physician Right eye pain; New symptoms/ FYI 07/23/2024 Telephone [facility] Movement Disorders [address] [facility] Advanced Medicine 7th [place] [address] Racquel Etienne MD 07/18/2024 Telephone [facility] Advanced Medicine ([facility] ENT [address] [facility] Advanced Medicine 11th [place] [address] [place] [address] Laine Aguilera MS 06/27/2024 Telephone [facility] Ophthalmology [address] [place] [phone] Reyna Lewis COA 06/17/2024 12:00 PM ATG JAVA DEVELOPER Office Visit [facility] Movement Disorders [address] [facility] 7th [place] [address] Elizabeth Barriga NP Parkinson disease (HCC) from [...] OS and was sent to [facility] The path was read as conj [...] 04/03/2018 Assessment & Plan (06/17/2024 12:44 PM ATG JAVA DEVELOPER): Mrs. Mckoy was doing well overall. [...] hydrated Assessment & Plan (06/09/2023 1:32 PM ATG JAVA DEVELOPER): Mrs. Mckoy presented for a follow [...] is scheduled to follow up with her medical claims analyst today post surgical removal of melanoma. Recommendations [...] She was drinking boost. She lived at [facility] in assisted living [...] Our office will fax OT/PT orders to [facility] ATTN Alba at [phone] A message will be sent to the [...] management Assessment & Plan (04/28/2021 2:22 PM ATG JAVA DEVELOPER): Ms. Haven Mckoy is a 85 [...] encounter. Assessment & Plan (06/17/2020 11:03 AM ATG JAVA DEVELOPER): Ms. Haven Mckoy is a 84 y.o. female, who presents for follow-up for Parkinson's disease (PD), complicated by low back pain. 1. PD. She is about the same since the last visit. She continues to have banking analyst stiffness and increase in nighttime carbidopa-levodopa CR has not helped. We discussed gabapentin and she was willing to try. - Start gabapentin 100 mg with titration to 3 capsules at bedtime. Titration schedule was given through [facility]. Additional doses changes may be needed. - [...] effects were discussed during the encounter, including banking analyst sedation with gabapentin. Assessment & Plan (12/16/2019 [...] 2 tablets at bedtime to help with banking analyst off. - Continue carbidopa-levodopa 25-100 mg at the current dose. - Establish a regular exercise routine. - She should discuss with PCP about the use of BP medication and the vertigo. Assessment & Plan (03/21/2019 4:34 PM ATG JAVA DEVELOPER): Ms. Haven Mckoy is a 83 [...] on file Legal Sex Female 8:35 PM ATG JAVA DEVELOPER Gender Identity Female 01/25/2022 6:38 PM CDT Sexual Orientation Not on file Last Filed Vital Signs Vital Sign Reading Time Taken Comments Blood Pressure 130/80 06/17/2024 11:54 AM ATG JAVA DEVELOPER Pulse 66 06/17/2024 11:54 AM ATG JAVA DEVELOPER Temperature 36.1 C (97 F) 12/02/2022 10:25 AM CDT Respiratory Rate 17 12/02/2022 3:40 PM CDT Oxygen Saturation 95% 12/02/2022 3:40 PM CDT Inhaled Oxygen Concentration - - Weight 61.7 kg (136 lb) 06/17/2024 11:54 AM ATG JAVA DEVELOPER Height 162.6 cm (5' 4 ) 06/17/2024 11:54 AM ATG JAVA DEVELOPER Body Mass Index 23.34 06/17/2024 11:54 AM ATG JAVA DEVELOPER Plan of Treatment Not on file Insurance [employer] MEDICARE GOLD IDPA [facility] Member Subscriber Plan / Payer (Ef fective 2019-Present) Name:Haven Mckoy Brien Relation to Subscriber:Self Name:Haven Mckoy Payer ID:[id number] (NAIC) Type:Not on file Address: [address] [place] [id number] IDPA [employer] MEDICARE GOLD IDMT AET MEDICARE GOLD Care Teams Cnc Maintenance Technician Relationship Specialty Start Date End Date Luis Almeida DO PCP - General Internal Medicine 01/06/21
[2024-08-06 09:03] LABS: Alanine Aminotransferase 8 U/L (6-35); Albumin Level 3.6 g/dL (3.5-5.1); Alkaline Phosphatase 88 U/L (38-126); Anion Gap 6 mmol/L (4-12); Aspartate Amino Transferase 28 U/L (14-36); Bilirubin,Total 1.6 mg/dL (0.2-1.3); Blood Urea Nitrogen 23 mg/dL (7-17); Carbon Dioxide 33 mmol/L (22-30); Chloride 99 mmol/L (98-107); Estimated CRCL calculation 32 ml/min; Estimated Glomerular Filt Rate 52; Glucose 114 mg/dL (65-110); Magnesium 2.2 mg/dL (1.6-2.3); Potassium 3.6 mmol/L (3.4-5.0); Sodium 138 mmol/L (137-145)
--- OUTSIDE RECORDS SUMMARY | 2024-08-06 09:03 | XMS_ITS | Encounter Summary ---
Author Organization [facility] Address [address] [place] [address] Phone Care Team Providers Care Optoelectronics Engineer Name Role Phone Luis Almeida DO Primary Care Provider [phone]- [phone] Encounter Details Date Type Department Care Team (Late st Contact Info) Description 08/02/2024 1:15 PM CDT Office Visit [facility] Ophthalmology [address] [place] [address] 1st [place] [phone] Joselyn Sequeira MD [address] [place] [address] Eye pain, left (Primary Dx); Malignant melanoma of conjunctiva, left (HCC) Social History Tobacco Use Types Packs/Day Years [...] on file Legal Sex Female 8:35 PM UNIX DEVELOPER Gender Identity Female 01/25/2022 6:38 PM CDT Sexual Orientation Not on file documented as of this encounter Ordered Prescriptions Prescription Sig Dispense Quantity Refills Last Filled Start Date End Date erythromycin (ILOTYCIN) ophthalmic ointment Apply to left eye nightly 3.5 g 11 08/02/2024 documented in this encounter Progress Notes * Joselyn Sequeira MD - 08/02/2024 1:15 PM CDT Assessment and Plan Problem List Eye/Vision Problems Eye pain, left - Primary Current Assessment & Plan --Patient presents with daughter today c/o excruciating [...] qhs OU Malignant melanoma of conjunctiva, left (HCC) Overview [facility]erral from [facility] for [...] but clear margins (margins positive for MIHIR). Current Assessment & Plan Last seen by Dr. Soares 11/2023, missed follow up Exam appears stable today Will schedule for next available appt with Dr. Soares Relevant Medications erythromycin (ILOTYCIN) ophthalmic ointment Follow Up: Return in about 2 months (around 10/02/2024). Cosigned by Giacomo Noel, OD at 08/05/2024 11:32 AM CDT Associated attestation - Giacomo Noel, OD - 08/05/2024 11:32 AM CDT I was present with the resident during the history and exam. I discussed this patient with the resident and agree with the findings and plan as documented in the their note. I have made corrections and additions as appropriate. Giacomo Noel, RUTH documented in this encounter Miscellaneous Notes * Assessment & Plan Note - Joselyn Sequeira MD - 08/02/2024 4:55 PM CDT Associated Problem(s): Malignant melanoma of conjunctiva, left (HCC) Last seen by Dr. Soares 11/2023, missed follow up Exam appears stable today Will schedule for next available appt with Dr. Soares * Assessment & Plan Note - Joselyn Sequeira MD - 08/02/2024 4:50 PM CDT Associated Problem(s): Eye pain, left --Patient presents with daughter today c/o excruciating [...] PLAN Stop polymyxin Erythromycin ointment qhs OU * Addendum Note - Giacomo Noel, RUTH - 08/02/2024 1:15 PM CDTAddended by: GIACOMO NOEL on: 08/05/2024 11:32 AM Modules accepted: Level of Service documented in this encounter Plan of Treatment Not on file documented as of this encounter Visit Diagnoses Diagnosis Eye pain, left- Primary Malignant melanoma of conjunctiva, left (HCC) documented in this encounter Eye Exam Visual Acuity (Snellen - Linear) Right eye Left eye Dist sc 20/80 20/90 Dist ph sc 20/70 20/80 Facility did not send her glasses with her OU. I tried a trail pair of glasses and they didn't helpbut pt 's daughter believes was given tramadol before coming to this appointment. Tonometry #1 (Palpation, 1:40 PM) Right eye Left eye Pressure soft soft Tonometry #2 (Applanation, 2:41 PM) Right eye Left eye Pressure 10 8 Tonometry Comments Squeezing Pupils Dark Light Shape React APD Right eye 2 2 Round Minimal None Left eye 4 3.5 Round Minimal None Visual Garcia KG pt 's daughter believes was given tramadol before coming to this appointment. Extraocular Movement KG pt 's daughter believes was given tramadol before coming to this appointment. Neuro/Psych Oriented x3: Yes Mood/Affect: medicated pt 's daughter believes was given tramadol before coming to this appointment. Dilation Deferred to MD. External Exam Right eye Left eye External Normal Normal Slit Lamp Exam Right eye Left eye Lids/Lashes mild ap ptosis, 2+ b leph, lid margin erythema mod ap ptosis, 2+ bleph, lid margin erythema, +papillary rxn Conjunctiva/Sclera White and quiet mild injectio n, healed well, conj well-approximated to limbus, no pigment Cornea Clear inferior PEE, no epi defect Anterior Chamber Deep and quiet Deep and quiet Iris superior PI x 2, two spots of post synech nasal, temporal superior PI x 2 Lens 3+ NS PCIOL, clear Care Teams Optoelectronics Engineer Relationship Specialty Start Date End Date Luis Almeida DO PCP - General Internal Medicine 01/06/21 documented as of this encounter
--- OUTSIDE RECORDS SUMMARY | 2024-08-06 09:03 | XMS_ITS | Encounter Summary ---
Author Organization [facility] Address [address] [place] [address] Phone Care Team Providers Care Sling Operator Name Role Phone Luis Almeida DO Primary Care Provider [phone]- [phone] Encounter Details Date Type Department Care Team (Late st Contact Info) Description 08/02/2024 Telephone [facility] Movement Disorders [address] [facility] 7th [place] [address] Racquel Etienne MD [address] [place] [address] Social History Tobacco Use Types Packs/Day Years [...] on file Legal Sex Female 8:35 PM SCLEROSCOPE TESTER Gender Identity Female 01/25/2022 6:38 PM CDT Sexual Orientation Not on file documented as of this encounter Miscellaneous Notes * Telephone Encounter - Kait Gibbs, ANTONIETA - 08/05/2024 12:02 PM CDT Pt's daughter has called to inquire about next steps. I let her know we are waiting on Dr. Pacheco. Kait * Telephone Encounter - Betty Quiroz RN - 08/02/2024 3:28 PM CDT I called and spoke with her. Her mother has the facial pain still. [facility] ([facility] Dx has been trigeminal neuralgia.She saw an young adult librarian today- eye has been examined and all clear. Multiple head images-CT and MRI are reportedly clear. Rehab is giving her gabapentin 300 BID with occasional tramadol. The gabapentin is not helping and the tramadol knocks her out. I let her daughter know this is not our area of expertise, but I will let her know what Dr. Headley suggests as a next step for workup. Dr. Headley- She has been hurting for a few weeks. Let us know what you advise. Thanks! * Telephone Encounter - Kait Gibbs CMA - 08/02/2024 3:06 PM CDT ID Pts daughter has called and stated that pt has been experiencing pain for the past two plus weeks. She would like a call back at [phone]. Denia documented in this encounter Plan of Treatment Not on file documented as of this encounter Visit Diagnoses Not on filedocumented in this encounter Care Teams Sling Operator Relationship Specialty Start Date End Date Luis Almeida DO PCP - General Internal Medicine 01/06/21 documented as of this encounter
[2024-08-06 09:11] LABS: Anisocytosis 1+; Ovalocytes 1+; Platelet Estimate Adequate (Adequate)
[2024-08-06 09:12] LABS: Hypochromasia 1+; Microcytosis 1+ (NORMAL); Schistocytes None Seen
[2024-08-06 09:12] LABS: Add Urine Microscopic? NO; Appearance Urine Clear (Clear); Bilirubin Urine Negative (Negative); Blood Urine Negative (Negative); Color Urine Yellow (Yellow); Glucose Urine UA Negative (Negative); Ketones Urine Negative (Negative); Leukocyte Esterase Ur Negative LEU/UL (Negative); Nitrate Urine Negative (Negative); Protein Urine Negative (Negative); Specific Grav Ur 1.008 (1.001-1.035); pH Urine 7.5 (5.0-9.0)
[2024-08-06 09:14] LABS: Troponin I < 0.012 ng/mL (0.000-0.034)
[2024-08-06] MEDS: LEVOTHYROXINE SODIUM INJ 100 MCG/5 ML VIAL IV PUSH (09:22)
[2024-08-06 09:30] LABS: Fractional Inspired Oxygen 21 %; HCO3 VBG 31.6 mEq/l (24.0-30.0); PCO2 VBG 50.4 mmHg (42.0-48.0); PO2 VBG 103.6 mmHg (35.0-45.0)
[2024-08-06 09:33] LABS: Device ROOM AIR; pH VBG 7.415 (7.300-7.400)
--- NOTE | 2024-08-06 10:33 | PC.NURSE ---
0840: Pt placed on external cardiac pads connected to crash cart.
--- NOTE | 2024-08-06 10:33 | PC.NURSE ---
1015: Temp abbott size 16fr with 10ml syringe inserted & connected to monitor, cath secured to pt right thigh. Temp 93.8. Dr. Pathak informed, verbal order for Na rodríguez. Pt placed on bedpan for BM. Pt unable move bowels. Instructed avoid strong bearing down.
[2024-08-06 10:48] LABS: Free T4 Free Thyroxine Reflex 1.21 ng/dL (0.78-2.19)
[2024-08-06 11:48] LABS: Total Triiodothyronine (T3) 0.98 NG/ML (0.97-1.69)
== END 2024-08-06 12:35 | disposition short-term general hospital (02) ==
PROVIDERS: Emergency Provider Student in an Organized Health Care Education/Training Program; PCP Internal Medicine
DX: G20.A1 Parkinson's disease without dyskinesia, without mention of fluctuations (principal); R00.1 Bradycardia, unspecified; E03.9 Hypothyroidism, unspecified; I11.0 Hypertensive heart disease with heart failure; I50.9 Heart failure, unspecified; F32.A Depression, unspecified
CPT/HCPCS: 36415; 70450; 70486; 71045; 80053; 81003; 82803; 83735; 84439; 84443; 84480; 84484; 85025; 85610; 85730; 93005; 96374; 96375; 99285; J0461; J0650; J1265; J7030

== ENCOUNTER 2024-10-11 13:07 | Inpatient (IN) | payer MEDICARE, MEDICAID, SELFPAY ==
[2024-10-11] VITALS (17 sets, daily range): BP systolic 92–140; BP diastolic 40–65; PULSE 41–81; RESP 14–24; TEMP 36.4–37.1; O2SAT 91–100; BMI 19.4
--- NOTE | ~2024-10-11 | US_ITS ---
EXAMINATION: US carotid duplex BI DATE: 10/12/2024 09:49 INDICATION: Syncope TECHNIQUE: Grayscale, color Doppler, and pulsed Doppler images of the cervical carotid arteries were obtained. The degree of vessel stenosis is placed in one of the following categories: normal, <50%, 5 0-69%, >=70% but less than near-occlusion, near-occlusion, or total occlusion. Note that percent sten osis relative to normal distal artery lumen diameter is indirectly measured from velocity measurement s as described by Aron, et al. Radiology 2003; 229:340-346. Notes: Normal: Peak systolic velocity <125 centimeters/sec and no plaque <50%. Peak systolic velocity <125 ( EDV <40; ICA/CCA PSV ratio <2.0; used these factors only a tandem lesions or low cardiac output or co ntralateral disease) 50-69 %: PSV 125-230 (EDV 40-100; ratio 2-4) >= 70% but less than near occlusion: PSV greater than 230 (EDV > 100; ratio> 4.0) Near Occlusion: PSV that is variable; markedly narrowed lumen Occlusion: Absent flow on color/spectral Doppler and no lumen on matos scale. COMPARISON: None. FINDINGS: RIGHT: The right common carotid artery (CCA) peak systolic velocity (PSV) is 71 cm/s. The right internal car otid artery (ICA) PSV is 116 cm/s. The right ICA end-diastolic velocity (EDV) is 19 cm/s. The right I CA/CCA PSV ratio is 1.6. The external carotid artery (ECA) PSV is 61 cm/s. There is antegrade flow in the right vertebral artery. LEFT: The left CCA PSV is 50 cm/s. The left ICA PSV is 120 cm/s. The left ICA EDV is 27 cm/s. The left ICA/ CCA PSV ratio is 2.4. The ECA PSV is 76 cm/s. There is antegrade flow in the left vertebral artery. IMPRESSION: 1. Less than 50% stenosis in the right internal carotid artery by sonographic criteria. 2. Less than 50% stenosis in the left internal carotid artery by sonographic criteria. Reviewed, dictated and finalized at location A. IMPRESSION: 1. Less than 50% stenosis in the right internal carotid artery by sonographic deshawn wall. 2. Less than 50% stenosis in the left internal carotid artery by sonographic mala frey.
--- NOTE | ~2024-10-11 | XR_ITS ---
EXAMINATION: XR chest 1V portable DATE: 10/11/2024 13:59 INDICATION: Syncope TECHNIQUE: frontal view of the chest was obtained. COMPARISON: 08/06/2024 FINDINGS: Persistent retrocardiac opacity left lower lung zone. Right lung remains clear. No pulmonary edema, p neumothorax or right-sided pleural effusion. Cardiomegaly. Calcified right axillary lymph node. IMPRESSION: 1. Opacities in the left lower lung zone which appears to increase in part to small left pleural effu venita with associated atelectasis and/or pneumonia. 2. Cardiomegaly. Reviewed, dictated and finalized at location A. IMPRESSION: 1. Opacities in the left lower lung zone which appears to increase in part to s mall left pleural effusion with associated atelectasis and/or pneumonia. 2. Cardiomegaly.
--- NOTE | ~2024-10-11 | CT_ITS ---
EXAMINATION: CT brain wo con DATE: 10/11/2024 14:53 INDICATION: Syncope. Fall TECHNIQUE: Computed tomography (CT) of the head was performed without intravenous contrast. Sagittal and coronal reconstructions were performed. The mA was adjusted according to patient size. Iterative reconstruction technique was employed. The dose-length product was 529.67 mGy-cm. COMPARISON: head CT dated 08/06/2024 FINDINGS: Mild soft tissue swelling along the left supraorbital rim. No fracture. No acute intracranial hemorrh age, acute infarction or abnormal extra axial fluid collection. There is mild scattered white matter hypoattenuation consistent with chronic small vessel ischemic disease. Symmetric prominence of the best lci consistent with mild to moderate age-appropriate diffuse cerebral volume loss. No mass/mass effec t. Intracranial calcified cerebral atherosclerosis is noted. The orbits, paranasal sinuses and mastoi d air cells are normal. IMPRESSION: 1. Normal aging brain. No fracture or acute intracranial process. Reviewed, dictated and finalized at location A.
--- OUTSIDE RECORDS SUMMARY | 2024-10-11 13:10 | XMS_ITS | Referral Summary ---
Author Organization [facility] Address [address] [place] [address] Care Team Providers Care Central Supply Supervisor Name Role Phone Luis Almeida DO Primary Care Provider [phone] Encounters Date Type Department Care Team Description 09/26/2024 10:00 AM CDT Office Visit [facility] General Neurology [address] [place] [address] 6th [address] [place] [address] Peggy Suggs PA Trigeminal neuralgia (Primary Dx) 08/06/2024 1:58 PM CDT - 08/20/2024 2:13 PM CDT Hospital Encounter [facility] [address] [place] [address] Maryam Terrazas DO Liu, Sonya Yannie, MD Baum, MD Marysol Villagran James Matthew, MD Mahmood, Khalid, MD Alhalaseh, Dhara Jules MD Eye pain, left (Primary Dx); Left facial pain Discharge Disposition: Discharge to SNF 08/02/2024 Telephone [facility] Movement Disorders [address] [place] [address] 7th [place] [address] Racquel Etienne MD 08/02/2024 1:15 PM CDT Office Visit [facility] Ophthalmology [address] [place] [address] 1st [place] [address] Joselyn Sequeira MD Eye pain, left (Primary Dx); Malignant melanoma of conjunctiva, left (HCC) 08/01/2024 Telephone [facility] Ophthalmology [address] [place] [address] No, Physician Right eye pain; New symptoms/ FYI 07/23/2024 Telephone [facility] Movement Disorders [address] [facility] 7th [place] [address] Racquel Etienne MD 07/18/2024 Telephone [facility] ([facility]) - [facility] ENT [address] [facility] 11th [place] [address] [place] [address] Laine Aguilera MS from Last 3 Months Allergies Active Allergy Reactions Criticality Noted Date Comments Epinephrine Unknown Medium 11/29/2022 Influenza Virus Vaccine Bivalent Itching Low Metronidazole Nausea only Low Sulfa (Sulfonamide Antibiotics) Rash Medium Medications acetaminophen (TYLENOL) 500 mg tablet Take 1 [...] 90 tablet 3 06/17/19 25 026 Active ergocalciferol (VITAMIN D) 50,000 unit capsule Take 1 capsule (50,000 Units total) by mouth once a week 08/26/19 25 026 Active ferrous sulfate 325 mg (65 mg of elemental iron) tabletIndicati ons:Iron Deficiency Anemia Take 1 tablet (325 mg total) by mouth 2 (two) times a day with meals 08/21/19 25 026 Active levothyroxine (SYNTHROID) 50 mcg tablet Take 1 tablet (50 mcg total) by mouth necktie centralizing machine operator before breakfast 08/22/19 25 Active polyethylene glycol (MIRALAX) 17 gram/dose bulk powderIndicati ons:constipati on Take 17 g by mouth daily 08/21/19 25 Active senna-docusate (PERICOLACE) 8.6-50 mg Take 2 tablets by mouth 2 (two) times a day 08/21/19 25 Active gabapentin (NEURONTIN) 300 mg capsuleIndicat ions:Trigemina l neuralgia Take 1 capsule (300 mg total) by mouth 2 (two) times a day At 8 am and 4 pm 60 capsule 11 09/27/19 25 Active gabapentin (NEURONTIN) 300 mg capsule Take 1 capsule (300 mg total) by mouth 2 (two) times a day 025 Discontinued(Re order) indomethacin (INDOCIN) 50 mg capsule 09/12/19 25 025 Discontinued Active Problems Problem Noted Date Diagnosed Date Trigeminal neuralgia 09/26/2024 Paroxysmal A-fib 08/13/2024 Assessment & Plan (08/19/2024 2:34 PM CDT): Diagnosed June 2024. S/p cardioversion per family. Started on eliquis, amiodarone. Eliquis stopped due to severe epistaxis. Amiodarone decreased to 100 by outpatient pulp grinder and blender due to bradycardia, now d/c due to persistence of bradycardia TTE 08/08/24: EF 55-60%, mod LA dilation, severe RA dilation, mild TR Patient with recently diagnosed afib, unable to tolerate outpatient therapies of amio/eliquis, TTE with severe RA dilation suspected to be possible etiology for patient afib. Given patient age, significant comorbidity, would likely be poor candidate/unable to tolerate pHTN related therapies. Will need discussion regarding benefits/risks of deferring treatment given intolerance to previously trialed amio/eliquis FTT (failure to thrive) in adult 08/13/2024 Assessment & Plan (08/19/2024 2:44 PM CDT): weight loss, PO intolerance due to worsening pain Presents with BMI 18.22 Comorbid parkinson's/dementia likely contributing to patients overall trend of poor PO/weightloss with acute worsening in the past few weeks related to pain that is worse when chewing RD following ,recs noted Constipation/Dark stool 08/13/2024 Assessment & Plan (08/13/2024 5:49 PM CDT): No BM since admission 08/06. Stool impaction noted by nursing. Patient previously constipated, increased bowel reg 08/09 with subsequent frequent BMs with later BM with dark appearance. she has remained HDS, Hgb 8.4 > 7.6 > 8.1 > 8.3 Low suspicion for bleed, ferrous sulfate last given , possibly contributing to dark discoloration Patient remains HDS with lateral Hgb CTM IV protonix BID Hypothyroidism, unspecified 08/13/2024 Assessment & Plan (08/13/2024 5:50 PM CDT): TSH 11. FT4/FT3 wnl. COMPOSITION INSTRUCTOR synthroid Anemia of chronic disease/iron deficiency anemia 08/13/2024 Assessment & Plan (08/19/2024 2:36 PM CDT): Hgb 9.6, MCV 67.2. Iron 82, ferritin 342, transferrin sat 37. Haptoglobin, LDH wnl. ferrous sulfate Protein-calorie malnutrition, severe 08/07/2024 Syncope/Hypotension/Sinus bradycardia 08/06/2024 Assessment & Plan (08/19/2024 2:35 PM CDT): Presented from OSH with bradycardia to 30s, SBP 70s, hypothermic to 93.7 at SNF. At OSH, received atropine 1mg, 100mcg of IV levothyroxine, dopamine gtt, 1L IVF with improvement in vitals. Lower concern for hypothyroidism presentation given normal FT4/FT3 despite elevated TSH. Cortisol mildly elevated to 23. Electrolytes, B12 wnl. HIV, RPR negative. BNP 1334. EP c/s, no acute intervention for PPM, signed off Required dopamine gtt while admitted in ICU has been off since 29908/09/24 Patient started on amiodarone for treatment of afib, due to symptomatic bradycardia/hypotension, was then dose reduced to 100mg qdaily COMPOSITION INSTRUCTOR with persistence of symptoms and presentation this admission as above. Bradycardia/hypotension suspected to be 2/2 intolerance to amio therapy given otherwise reassuring workup. Patient did not tolerate anticoagulation, limited other options for treatment, possibly low dose metoprolol. GOC discussion/hospice broached with family, no definitive plan at this time. 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 A&Ox3. On home carbidopa-levodopa COMPOSITION INSTRUCTOR carbidopa-levodopa, mirtazapine Swallow eval: mechanical soft diet Assessment & Plan (06/17/2024 12:44 PM PRINTING ESTIMATOR): Mrs. Diaz was doing well overall. She was about [...] & Plan (12/08/2023 12:36 PM CDT): Mrs. Diaz presented for a follow up. She was [...] hydrated Assessment & Plan (06/09/2023 1:32 PM PRINTING ESTIMATOR): Mrs. Diaz presented for a follow up. She was [...] is scheduled to follow up with her ice skating coach today post surgical removal of melanoma. Recommendations Follow up in 6 months No medication changes today Encouraged participation in activities at the assisted living facility NPT at next visit- she was not able to stay today due to eye appt Fall precaution Stay well hydrated Assessment & Plan (11/11/2022 2:25 PM CDT): Mr. Diaz presented for a follow up via zoom. [...] She was drinking boost. She lived at [facility] in assisted living and her daughter [...] Our office will fax OT/PT orders to [facility] ATTN Alba at [phone] A message will be sent to the palliative care team on if they are able to provide services and I will follow up Scheduling will call her daughter to make appt with me in 2 months Continue to encourage hydration and food/protein shakes No medication changes today Assessment & Plan (12/11/2021 4:16 PM CDT): Ms. Brennen Diaz is a 86 y.o. female, who presents [...] cognition after her brother, who lived with Brennen , and the concurrent social isolation related [...] & Plan (09/03/2021 3:19 PM CDT): Mrs. Diaz presented via zoom with her daughter. She [...] management Assessment & Plan (04/28/2021 2:22 PM PRINTING ESTIMATOR): Ms. Brennen Diaz is a 85 y.o. female, who presents [...] & Plan (01/20/2021 3:03 PM CDT): Ms. Brennen Diaz is a 85 y.o. female, who presents [...] encounter. Assessment & Plan (06/17/2020 11:03 AM PRINTING ESTIMATOR): Ms. Brennen Diaz is a 84 y.o. female, who presents for follow-up for Parkinson's disease (PD), complicated by low back pain. 1. PD. She is about the same since the last visit. She continues to have necktie centralizing machine operator stiffness and increase in nighttime carbidopa-levodopa CR has not helped. We discussed gabapentin and she was willing to try. - Start gabapentin 100 mg with titration to 3 capsules at bedtime. Titration schedule was given through [employer]. Additional doses changes may be needed. - [...] effects were discussed during the encounter, including necktie centralizing machine operator sedation with gabapentin. Assessment & Plan (12/16/2019 9:43 AM CDT): Ms. Brennen Diaz is a 84 y.o. female, who presents [...] 2 tablets at bedtime to help with necktie centralizing machine operator off. - Continue carbidopa-levodopa 25-100 mg at the current dose. - Establish a regular exercise routine. - She should discuss with PCP about the use of BP medication and the vertigo. Assessment & Plan (03/21/2019 4:34 PM PRINTING ESTIMATOR): Ms. Brennen Diaz is a 83 y.o. female, who presents [...] 11/17/2016 Abnormal findings on diagnostic imaging of breas t 01/06/2014 Immunizations Immunization Administration Dates Next [...] someone making you feel afraid or unsafe? Denies 08/06/2024 Comments No Sex and Gender Information Value Date Recorded Sex Assigned at Not on file Legal Sex Female 8:35 PM PRINTING ESTIMATOR Gender Identity Female 01/25/2022 6:38 PM CDT Sexual Orientation Not on file Last Filed Vital Signs Vital Sign Reading Time Taken Comments Blood Pressure 91/51 09/26/2024 10:06 AM CDT Pulse 80 09/26/2024 10:06 AM CDT Temperature 36.7 C (98 F) 09/26/2024 10:06 AM CDT Respiratory Rate 16 08/20/2024 8:22 AM CDT Oxygen Saturation 95% 09/26/2024 10:06 AM CDT Inhaled Oxygen Concentration - - Weight 55.6 kg (122 lb 8 oz) 09/26/2024 10:06 AM CDT Height 165.1 cm (5' 5) 09/26/2024 10:06 AM CDT Body Mass Index 20.39 09/26/2024 10:06 AM CDT Plan of Treatment Not on file Procedures Procedure Name Priority Date/Time Associated Diagnosis Comments EGFR Routine 08/18/2024 4:31 AM CDT DIFFERENTIAL AUTO Routine 08/18/2024 4:3 1 AM CDT CBC WITH AUTO DIFFERENTIAL Routine 08/18/2024 4:31 AM CDT BASIC METABOLIC PANEL Routine 08/18/2024 4:31 AM CDT EGFR Routine 08/17/2024 4:41 AM CDT DIFFERENTIAL AUTO Routine 08/17/2024 4:4 1 AM CDT CBC WITH AUTO DIFFERENTIAL Routine 08/17/2024 4:41 AM CDT BASIC METABOLIC PANEL Routine 08/17/2024 4:41 AM CDT EGFR Routine 08/16/2024 3:57 AM CDT DIFFERENTIAL AUTO Routine 08/16/2024 3:5 7 AM CDT CBC WITH AUTO DIFFERENTIAL Routine 08/16/2024 3:57 AM CDT BASIC METABOLIC PANEL Routine 08/16/2024 3:57 AM CDT EGFR Routine 08/15/2024 4:14 AM CDT DIFFERENTIAL AUTO Routine 08/15/2024 4:1 4 AM CDT CBC WITH AUTO DIFFERENTIAL Routine 08/15/2024 4:14 AM CDT BASIC METABOLIC PANEL Routine 08/15/2024 4:14 AM CDT EGFR Routine 08/13/2024 9:03 PM CDT DIFFERENTIAL AUTO Routine 08/13/2024 9:0 3 PM CDT CBC WITH AUTO DIFFERENTIAL Routine 08/13/2024 9:03 PM CDT BASIC METABOLIC PANEL Routine 08/13/2024 9:03 PM CDT EGFR Routine 08/12/2024 8:56 PM CDT DIFFERENTIAL AUTO Routine 08/12/2024 8:5 6 PM CDT CBC WITH AUTO DIFFERENTIAL Routine 08/12/2024 8:56 PM CDT BASIC METABOLIC PANEL Routine 08/12/2024 8:56 PM CDT EGFR Routine 08/12/2024 12:23 AM CDT DIFFERENTIAL AUTO Routine 08/12/2024 12: 23 AM CDT CBC WITH AUTO DIFFERENTIAL Routine 08/12/2024 12:23 AM CDT BASIC METABOLIC PANEL Routine 08/12/2024 12:[address] FACIAL BONES W WO CONTRAST IP Routine 08/11/2024 11:14 AM CDT TYPE AND SCREEN Timed 08/11/2024 9:37 AM CDT HEMOGLOBIN AND HEMATOCRIT Routine 08/11/2024 9:37 AM CDT EGFR Routine 08/11/2024 3:26 AM CDT DIFFERENTIAL AUTO Routine 08/11/2024 3:2 6 AM CDT VITAMIN D 25 HYDROXY Timed 08/11/2024 3:26 AM CDT VITAMIN B6 Timed 08/11/2024 3:26 AM CDT VITAMIN B1 Timed 08/11/2024 3:26 AM CDT CBC WITH AUTO DIFFERENTIAL Routine 08/11/2024 3:26 AM CDT BASIC METABOLIC PANEL Routine 08/11/2024 3:26 AM CDT POCT GLUCOSE DEVICE Routine 08/10/2024 1 1:31 AM CDT HEMOGLOBIN AND HEMATOCRIT Timed 08/10/2024 9:46 AM CDT POCT GLUCOSE DEVICE Routine 08/10/2024 7 :43 AM CDT ERYTHROCYTE SEDIMENTATION RATE Routine 08/10/2024 3:31 AM CDT CRP (ACUTE PHASE) Routine 08/10/2024 3:3 1 AM CDT EGFR Routine 08/10/2024 3:31 AM CDT DIFFERENTIAL AUTO Routine 08/10/2024 3:3 1 AM CDT HEPATIC FUNCTION PANEL Routine 08/10/2024 3:31 AM CDT MAGNESIUM Routine 08/10/2024 3:31 AM CDT BASIC METABOLIC PANEL Routine 08/10/2024 3:31 AM CDT CBC WITH AUTO DIFFERENTIAL Routine 08/10/2024 3:31 AM CDT POCT GLUCOSE DEVICE Routine 08/09/2024 7 :56 PM CDT POCT GLUCOSE DEVICE Routine 08/09/2024 5 :01 PM CDT POCT GLUCOSE DEVICE Routine 08/09/2024 1 2:05 PM CDT POCT GLUCOSE DEVICE Routine 08/09/2024 7 :45 AM CDT EGFR Routine 08/09/2024 6:23 AM CDT DIFFERENTIAL AUTO Routine 08/09/2024 6:2 3 AM CDT HEPATIC FUNCTION PANEL Routine 08/09/2024 6:23 AM CDT MAGNESIUM Routine 08/09/2024 6:23 AM CDT BASIC METABOLIC PANEL Routine 08/09/2024 6:23 AM CDT CBC WITH AUTO DIFFERENTIAL Routine 08/09/2024 6:23 AM CDT MRI BRAIN INCL ORBITS WO CONTRAST IP Routine 08/09/2024 12:13 AM CDT POCT GLUCOSE DEVICE Routine 08/08/2024 8 :04 PM CDT POCT GLUCOSE DEVICE Routine 08/08/2024 6 :[address] OUTSIDE CONSULT Routine 08/08/2024 5:21 PM CDT TRANSTHORACIC ECHO (TTE) COMPLETE W DOPPLER/CF W CONTRAST ED Urgent/IP Urgent 08/08/2024 4:30 PM CDT LEARNING TECHNOLOGIST EVALUATE AND TREAT CLINICAL SWALLOW Routine 08/08/2024 9:57 AM CDT MANUAL DIFFERENTIAL Routine 08/08/2024 5 :29 AM CDT EGFR Routine 08/08/2024 5:29 AM CDT DIFFERENTIAL AUTO Routine 08/08/2024 5:2 9 AM CDT HEPATIC FUNCTION PANEL Routine 08/08/2024 5:29 AM CDT MAGNESIUM Routine 08/08/2024 5:29 AM CDT BASIC METABOLIC PANEL Routine 08/08/2024 5:29 AM CDT CBC WITH AUTO DIFFERENTIAL Routine 08/08/2024 5:29 AM CDT XR CHEST 1 VIEW ED Urgent/IP Urgent 08/07/2024 12:30 PM CDT HEPATIC FUNCTION PANEL Routine 08/07/2024 5:25 AM CDT EGFR Routine 08/07/2024 5:25 AM CDT DIFFERENTIAL AUTO Routine 08/07/2024 5:2 5 AM CDT MAGNESIUM Routine 08/07/2024 5:25 AM CDT BASIC METABOLIC PANEL Routine 08/07/2024 5:25 AM CDT CBC WITH AUTO DIFFERENTIAL Routine 08/07/2024 5:25 AM CDT RESPIRATORY PATHOGEN PANEL Timed 08/07/2024 5:25 AM CDT TROPONIN I HIGH-SENSITIVITY Timed 08/06/2024 9:18 PM CDT XR CHEST 1 VIEW ED Urgent/IP Urgent 08/06/2024 6:33 PM CDT PRO B-TYPE NATRIURETIC PEPTIDE STAT 08/06/2024 2:19 PM CDT CORTISOL STAT 08/06/2024 2:19 PM CDT VITAMIN B12 STAT 08/06/2024 2:19 PM CDT EGFR STAT 08/06/2024 2:19 PM CDT IRON PROFILE W/ IBC STAT 08/06/2024 2 :19 PM CDT LIPID PANEL STAT 08/06/2024 2:19 PM CDT LACTATE DEHYDROGENASE STAT 08/06/2024 2:19 PM CDT FERRITIN STAT 08/06/2024 2:19 PM CDT URINALYSIS, MICROSCOPIC ONLY Routine 08/06/2024 2:19 PM CDT HEMOGLOBIN A1C Timed 08/06/2024 2:19 PM CDT T4, FREE STAT 08/06/2024 2:19 PM CDT THYROID FUNCTION CASCADE STAT 08/06/2024 2:19 PM CDT HAPTOGLOBIN STAT 08/06/2024 2:19 PM CDT APTT STAT 08/06/2024 2:19 PM CDT PROTIME-INR STAT 08/06/2024 2:19 PM CDT TYPE AND SCREEN STAT 08/06/2024 2:19 PM CDT CBC WITHOUT DIFFERENTIAL STAT 08/06/2024 2:19 PM CDT BLOOD GAS, VENOUS STAT 08/06/2024 2:1 9 PM CDT LACTATE STAT 08/06/2024 2:19 PM CDT CALCIUM, IONIZED STAT 08/06/2024 2:19 PM CDT PHOSPHORUS STAT 08/06/2024 2:19 PM CDT MAGNESIUM STAT 08/06/2024 2:19 PM CDT HEPATIC FUNCTION PANEL STAT 08/06/2024 2:19 PM CDT BASIC METABOLIC PANEL STAT 08/06/2024 2:19 PM CDT RPR Routine 08/06/2024 2:19 PM CDT HIV 1/2 ANTIBODY PLUS P24 ANTIGEN Routine 08/06/2024 2:19 PM CDT URINALYSIS AND REFLEX TO MICROSCOPIC AND CULTURE Routine 08/06/2024 2:19 PM CDT BLOOD CULTURE Routine 08/06/2024 2:19 PM CDT BLOOD CULTURE Routine 08/06/2024 2:19 PM CDT INFECTION PREVENTION MRSA ONLY (STAPHYLOCOCCUS AUREUS) CULTURE Routine 08/06/2024 2:19 PM CDT ECG 12-LEAD STAT 08/06/2024 2:11 PM CDT from Last 3 Months Results * eGFR (08/18/2024 4:31 AM CDT) eGFR 68 >=60 mL/min/1. 73 m2 Comment: Interpretive Data Reference Interval Normal >/= 90 mL/min/1.73m2 Mildly decreased* 60 - 89 mL/min/1.73m2 Mildly to moderately decreased 45 - 59 mL/min/1.73m2 Moderately to severely decreased 30 - 44 mL/min/1.73m2 Severely decreased 15 - 29 mL/min/1.73m2 Kidney Failure < 15 mL/min/1.73m2 *Relative to young adult level Estimated glomerular filtration rate is determined by the 2020 CKD-EPI equation recommended by the National Kidney Foundation (A Unifying Approach to GFR Estimation: Recommendations of the NKF-ASK Task Force on Reassessing the Inclusion of Race in Diagnosing Kidney Disease, JASN 2020). The CKD-EPI equation should not be used for patients with unstable renal function and has not been validated in children and those over 70. Current interpretive data was last reviewed 2021. Blood 08/18/2024 4:31 AM CDT 08/18/2024 5:29 AM CDT us Rocio Mccarthy MD LAB BLOOD ORDERABLES Final Res ult [facility] Department [place] [address] * (ABNORMAL) Differential, auto (08/18/2024 4:31 AM CDT) Neutrophil abs 4.08 1.50 - 6.50 K/cumm Imm gran abs 0.12(H) 0.00 - 0.10 K/cumm [facility] Lymphocyte abs 1.67 0.80 - 3.30 K/cumm [facility] Monocyte abs 0.60 0.20 - 0.80 K/cumm [facility] Eosinophil abs 0.26 0.00 - 0.50 K/cumm [facility] Basophil abs 0.05 0.00 - 0.10 K/cumm [facility] Neutrophil pct 60.3 % [facility] Comment: Interpretive Data Percent cell count reference ranges are not reported, since discordance with absolute values may lead to misinterpretation of CBC data. Current Interpretive Data was last revised on 2017. Imm gran pct 1.8 % [facility] Comment: Interpretive Data Percent cell count reference ranges are not reported, since discordance with absolute values may lead to misinterpretation of CBC data. Current Interpretive Data was last revised on 2017. Lymphocyte pct 24.6 % [facility] Comment: Interpretive Data Percent cell count reference ranges are not reported, since discordance with absolute values may lead to misinterpretation of CBC data. Current Interpretive Data was last revised on 2017. Monocyte pct 8.8 % [facility] Comment: Interpretive Data Percent cell count reference ranges are not reported, since discordance with absolute values may lead to misinterpretation of CBC data. Current Interpretive Data was last revised on 2017. Eosinophil pct 3.8 % [facility] Comment: Interpretive Data Percent cell count reference ranges are not reported, since discordance with absolute values may lead to misinterpretation of CBC data. Current Interpretive Data was last revised on 2017. Basophil pct 0.7 % [facility] Comment: Interpretive Data Percent cell count reference ranges are not reported, since discordance with absolute values may lead to misinterpretation of CBC data. Current Interpretive Data was last revised on 2017. Blood 08/18/2024 4:31 AM CDT 08/18/2024 5:29 AM CDT us Rocio Mccarthy MD LAB BLOOD ORDERABLES Final Res ult [facility] Department [place] [address] * (ABNORMAL) CBC with auto differential (08/18/2024 4:31 AM CDT) WBC 6.78 3.80 - 9.90 K/cumm Hgb 7.8(L) 11.9 - 15.5 g/dL [facility] Hct 24.7(L) 35.6 - 45.5 % [facility] Plt 427(H) 150 - 400 K/cumm [facility] MPV 9.3 9.1 - 12.3 fL [facility] RBC 3.67(L) 3.90 - 5.20 M/cumm [facility] MCV 67.3(L) 81.3 - 96.4 fL [facility] MCH 21.3(L) 27.1 - 33.3 pg [facility] MCHC 31.6(L) 32.3 - 35.7 g/dL [facility] RDW CV 18.5(H) 11.1 - 14.9 % [facility] RDW SD 43.8 35.7 - 48.1 fL [facility] NRBC abs 0.00 0.00 - 0.01 K/cumm [facility] Blood 08/18/2024 4:31 AM CDT 08/18/2024 5:29 AM CDT Rocio Mccarthy MD LAB BLOOD ORDERABLES Final Res ult [facility] Department [place] [address] * (ABNORMAL) Basic metabolic panel (08/18/2024 4:31 AM CDT) Sodium 140 135 - 145 mmol/L Potassium, pl 4.9 3.3 - 4.9 mmol/L [facility] Chloride 105 97 - 110 mmol/L [facility] CO2 28 22 - 32 mmol/L [facility] Anion gap 7 2 - 15 mmol/L [facility] BUN 33(H) 6 - 25 mg/dL [facility] Creatinine 0.83 0.60 - 1.10 mg/dL [facility] Glucose 103 70 - 199 mg/dL [facility] Comment: Interpretive Data Fasting glucose >/= 126 mg/dl is diagnostic for diabetes. Fasting is defined as no caloric intake for at least 8 hours. Fasting glucose between 100 mg/dl to 125 mg/dl is diagnostic of prediabetes. In a patient with classic symptoms of hyperglycemia or hyperglycemic crisis, a random glucose >/= 200 mg/dl is diagnostic for diabetes. In the absence of unequivocal hyperglycemia, results should be confirmed by repeat testing. The classification and Diagnosis of Diabetes Diabetes Care 2021; 46: S19-S40. Current interpretive data was last revised 2022. Calcium 9.0 8.5 - 10.3 mg/dL [facility] Blood 08/18/2024 4:31 AM CDT 08/18/2024 5:29 AM CDT us Rocio Mccarthy MD LAB BLOOD ORDERABLES Final Res ult [facility] Department [place] [address] * eGFR (08/17/2024 4:41 AM CDT) eGFR 73 >=60 mL/min/1. 73 m2 Comment: Interpretive Data Reference Interval Normal >/= 90 mL/min/1.73m2 Mildly decreased* 60 - 89 mL/min/1.73m2 Mildly to moderately decreased 45 - 59 mL/min/1.73m2 Moderately to severely decreased 30 - 44 mL/min/1.73m2 Severely decreased 15 - 29 mL/min/1.73m2 Kidney Failure < 15 mL/min/1.73m2 *Relative to young adult level Estimated glomerular filtration rate is determined by the 2020 CKD-EPI equation recommended by the National Kidney Foundation (A Unifying Approach to GFR Estimation: Recommendations of the NKF-ASK Task Force on Reassessing the Inclusion of Race in Diagnosing Kidney Disease, JASN 202). The CKD-EPI equation should not be used for patients with unstable renal function and has not been validated in children and those over 70. Current interpretive data was last reviewed 2021. Blood 08/17/2024 4:41 AM CDT 08/17/2024 6:12 AM CDT us Rocio Mccarthy MD LAB BLOOD ORDERABLES Final Res ult [facility] Department of [place] [address] * (ABNORMAL) Differential, auto (08/17/2024 4:41 AM CDT) Neutrophil abs 4.12 1.50 - 6.50 K/cumm Imm gran abs 0.16(H) 0.00 - 0.10 K/cumm [facility] Lymphocyte abs 1.98 0.80 - 3.30 K/cumm [facility] Monocyte abs 0.61 0.20 - 0.80 K/cumm [facility] Eosinophil abs 0.22 0.00 - 0.50 K/cumm [facility] Basophil abs 0.06 0.00 - 0.10 K/cumm [facility] Neutrophil pct 57.7 % [facility] Comment: Interpretive Data Percent cell count reference ranges are not reported, since discordance with absolute values may lead to misinterpretation of CBC data. Current Interpretive Data was last revised on 2017. Imm gran pct 2.2 % [facility] Comment: Interpretive Data Percent cell count reference ranges are not reported, since discordance with absolute values may lead to misinterpretation of CBC data. Current Interpretive Data was last revised on 2017. Lymphocyte pct 27.7 % [facility] Comment: Interpretive Data Percent cell count reference ranges are not reported, since discordance with absolute values may lead to misinterpretation of CBC data. Current Interpretive Data was last revised on 2017. Monocyte pct 8.5 % [facility] Comment: Interpretive Data Percent cell count reference ranges are not reported, since discordance with absolute values may lead to misinterpretation of CBC data. Current Interpretive Data was last revised on 2017. Eosinophil pct 3.1 % [facility] Comment: Interpretive Data Percent cell count reference ranges are not reported, since discordance with absolute values may lead to misinterpretation of CBC data. Current Interpretive Data was last revised on 2017. Basophil pct 0.8 % [facility] Comment: Interpretive Data Percent cell count reference ranges are not reported, since discordance with absolute values may lead to misinterpretation of CBC data. Current Interpretive Data was last revised on 2017. Blood 08/17/2024 4:41 AM CDT 08/17/2024 5:33 AM CDT Rocio Mccarthy MD LAB BLOOD ORDERABLES Final Res ult Performing Organization Address [facility] Co de Phone Number [facility] [place] [address] * (ABNORMAL) CBC with auto differential (08/17/2024 4:41 AM CDT) WBC 7.15 3.80 - 9.90 K/cumm Hgb 7.9(L) 11.9 - 15.5 g/dL [facility] Hct 25.3(L) 35.6 - 45.5 % [facility] Plt 419(H) 150 - 400 K/cumm [facility] MPV 9.5 9.1 - 12.3 fL [facility] RBC 3.75(L) 3.90 - 5.20 M/cumm [facility] MCV 67.5(L) 81.3 - 96.4 fL [facility] MCH 21.1(L) 27.1 - 33.3 pg [facility] MCHC 31.2(L) 32.3 - 35.7 g/dL [facility] RDW CV 18.5(H) 11.1 - 14.9 % [facility] RDW SD 43.8 35.7 - 48.1 fL [facility] NRBC abs 0.00 0.00 - 0.01 K/cumm [facility] Blood 08/17/2024 4:41 AM CDT 08/17/2024 5:33 AM CDT Rocio Mccarthy MD LAB BLOOD ORDERABLES Final Res ult Performing Organization Address City/[facility]/ZIP Co de Phone Number [facility] [place] [address] * (ABNORMAL) Basic metabolic panel (08/17/2024 4:41 AM CDT) Pathologist [facility] Sodium 139 135 - 145 mmol/L Potassium, pl 5.0(H) 3.3 - 4.9 mmol/L [facility] Chloride 106 97 - 110 mmol/L [facility] CO2 28 22 - 32 mmol/L [facility] Anion gap 5 2 - 15 mmol/L [facility] BUN 38(H) 6 - 25 mg/dL [facility] Creatinine 0.78 0.60 - 1.10 mg/dL [facility] Glucose 80 70 - 199 mg/dL [facility] Comment: Interpretive Data Fasting glucose >/= 126 mg/dl is diagnostic for diabetes. Fasting is defined as no caloric intake for at least 8 hours. Fasting glucose between 100 mg/dl to 125 mg/dl is diagnostic of prediabetes. In a patient with classic symptoms of hyperglycemia or hyperglycemic crisis, a random glucose >/= 200 mg/dl is diagnostic for diabetes. In the absence of unequivocal hyperglycemia, results should be confirmed by repeat testing. The classification and Diagnosis of Diabetes Diabetes Care 2021; 46: S19-S40. Current interpretive data was last revised 2022. Calcium 8.7 8.5 - 10.3 mg/dL [facility] Blood 08/17/2024 4:41 AM CDT 08/17/2024 6:12 AM CDT Rocio Mccarthy MD LAB BLOOD ORDERABLES Final Res ult [facility] [place] [address] * eGFR (08/16/2024 3:57 AM CDT) Pathologist [facility] eGFR 65 >=60 mL/min/1. 73 m2 Comment: Interpretive Data Reference Interval Normal >/= 90 mL/min/1.73m2 Mildly decreased* 60 - 89 mL/min/1.73m2 Mildly to moderately decreased 45 - 59 mL/min/1.73m2 Moderately to severely decreased 30 - 44 mL/min/1.73m2 Severely decreased 15 - 29 mL/min/1.73m2 Kidney Failure < 15 mL/min/1.73m2 *Relative to young adult level Estimated glomerular filtration rate is determined by the 2020 CKD-EPI equation recommended by the National Kidney Foundation (A Unifying Approach to GFR Estimation: Recommendations of the NKF-ASK Task Force on Reassessing the Inclusion of Race in Diagnosing Kidney Disease, JASN 2020). The CKD-EPI equation should not be used for patients with unstable renal function and has not been validated in children and those over 70. Current interpretive data was last reviewed 2021. Blood 08/16/2024 3:57 AM CDT 08/16/2024 4:55 AM CDT us Rocio Mccarthy MD LAB BLOOD ORDERABLES Final Res ult [facility] Department [place] [address] * (ABNORMAL) Differential, auto (08/16/2024 3:57 AM CDT) Pathologist [facility] Neutrophil abs 4.08 1.50 - 6.50 K/cumm Imm gran abs 0.19(H) 0.00 - 0.10 K/cumm [facility] Lymphocyte abs 1.86 0.80 - 3.30 K/cumm [facility] Monocyte abs 0.73 0.20 - 0.80 K/cumm [facility] Eosinophil abs 0.22 0.00 - 0.50 K/cumm [facility] Basophil abs 0.04 0.00 - 0.10 K/cumm [facility] Neutrophil pct 57.2 % [facility] Comment: Interpretive Data Percent cell count reference ranges are not reported, since discordance with absolute values may lead to misinterpretation of CBC data. Current Interpretive Data was last revised on 2017. Imm gran pct 2.7 % [facility] Comment: Interpretive Data Percent cell count reference ranges are not reported, since discordance with absolute values may lead to misinterpretation of CBC data. Current Interpretive Data was last revised on 2017. Lymphocyte pct 26.1 % [facility] Comment: Interpretive Data Percent cell count reference ranges are not reported, since discordance with absolute values may lead to misinterpretation of CBC data. Current Interpretive Data was last revised on 2017. Monocyte pct 10.3 % [facility] Comment: Interpretive Data Percent cell count reference ranges are not reported, since discordance with absolute values may lead to misinterpretation of CBC data. Current Interpretive Data was last revised on 2017. Eosinophil pct 3.1 % [facility] Comment: Interpretive Data Percent cell count reference ranges are not reported, since discordance with absolute values may lead to misinterpretation of CBC data. Current Interpretive Data was last revised on 2017. Basophil pct 0.6 % [facility] Comment: Interpretive Data Percent cell count reference ranges are not reported, since discordance with absolute values may lead to misinterpretation of CBC data. Current Interpretive Data was last revised on 2017. Blood 08/16/2024 3:57 AM CDT 08/16/2024 4:56 AM CDT us Rocio Mccarthy MD LAB BLOOD ORDERABLES Final Res ult [facility] [place] [address] * (ABNORMAL) CBC with auto differential (08/16/2024 3:57 AM CDT) WBC 7.12 3.80 - 9.90 K/cumm Hgb 8.2(L) 11.9 - 15.5 g/dL [facility] Hct 26.5(L) 35.6 - 45.5 % [facility] Plt 431(H) 150 - 400 K/cumm [facility] MPV 10.0 9.1 - 12.3 fL [facility] RBC 3.91 3.90 - 5.20 M/cumm [facility] MCV 67.8(L) 81.3 - 96.4 fL [facility] MCH 21.0(L) 27.1 - 33.3 pg [facility] MCHC 30.9(L) 32.3 - 35.7 g/dL [facility] RDW CV 18.8(H) 11.1 - 14.9 % [facility] RDW SD 44.3 35.7 - 48.1 fL [facility] NRBC abs 0.00 0.00 - 0.01 K/cumm [facility] Blood 08/16/2024 3:57 AM CDT 08/16/2024 4:56 AM CDT us Rocio Mccarthy MD LAB BLOOD ORDERABLES Final Res ult [facility] [place] [address] * (ABNORMAL) Basic metabolic panel (08/16/2024 3:57 AM CDT) Sodium 142 135 - 145 mmol/L Potassium, pl 5.3(H) 3.3 - 4.9 mmol/L [facility] Chloride 109 97 - 110 mmol/L [facility] CO2 29 22 - 32 mmol/L [facility] Anion gap 4 2 - 15 mmol/L [facility] BUN 34(H) 6 - 25 mg/dL [facility] Creatinine 0.86 0.60 - 1.10 mg/dL [facility] Glucose 94 70 - 199 mg/dL [facility] Comment: Interpretive Data Fasting glucose >/= 126 mg/dl is diagnostic for diabetes. Fasting is defined as no caloric intake for at least 8 hours. Fasting glucose between 100 mg/dl to 125 mg/dl is diagnostic of prediabetes. In a patient with classic symptoms of hyperglycemia or hyperglycemic crisis, a random glucose >/= 200 mg/dl is diagnostic for diabetes. In the absence of unequivocal hyperglycemia, results should be confirmed by repeat testing. The classification and Diagnosis of Diabetes Diabetes Care 2021; 46: S19-S40. Current interpretive data was last revised 2022. Calcium 8.9 8.5 - 10.3 mg/dL [facility] Blood 08/16/2024 3:57 AM CDT 08/16/2024 4:55 AM CDT Rocio Mccarthy MD LAB BLOOD ORDERABLES Final Res ult Performing Organization Address City/[facility] Co de Phone Number [facility] [place] [address] * eGFR (08/15/2024 4:14 AM CDT) eGFR 82 >=60 mL/min/1. 73 m2 Comment: Interpretive Data Reference Interval Normal >/= 90 mL/min/1.73m2 Mildly decreased* 60 - 89 mL/min/1.73m2 Mildly to moderately decreased 45 - 59 mL/min/1.73m2 Moderately to severely decreased 30 - 44 mL/min/1.73m2 Severely decreased 15 - 29 mL/min/1.73m2 Kidney Failure < 15 mL/min/1.73m2 *Relative to young adult level Estimated glomerular filtration rate is determined by the 2020 CKD-EPI equation recommended by the National Kidney Foundation (A Unifying Approach to GFR Estimation: Recommendations of the NKF-ASK Task Force on Reassessing the Inclusion of Race in Diagnosing Kidney Disease, JASN 2020). The CKD-EPI equation should not be used for patients with unstable renal function and has not been validated in children and those over 70. Current interpretive data was last reviewed 2021. Blood 08/15/2024 4:14 AM CDT 08/15/2024 4:53 AM CDT Rocio Mccarthy MD LAB BLOOD ORDERABLES Final Res ult Performing Organization Address City/[facility]/ZIP Co de Phone Number [facility] [place] [address] * (ABNORMAL) Differential, auto (08/15/2024 4:14 AM CDT) Neutrophil abs 4.84 1.50 - 6.50 K/cumm Imm gran abs 0.17(H) 0.00 - 0.10 K/cumm [facility] Lymphocyte abs 1.67 0.80 - 3.30 K/cumm [facility] Monocyte abs 0.81(H) 0.20 - 0.80 K/cumm [facility] Eosinophil abs 0.25 0.00 - 0.50 K/cumm [facility] Basophil abs 0.05 0.00 - 0.10 K/cumm [facility] Neutrophil pct 62.2 % [facility] Comment: Interpretive Data Percent cell count reference ranges are not reported, since discordance with absolute values may lead to misinterpretation of CBC data. Current Interpretive Data was last revised on 2017. Imm gran pct 2.2 % [facility] Comment: Interpretive Data Percent cell count reference ranges are not reported, since discordance with absolute values may lead to misinterpretation of CBC data. Current Interpretive Data was last revised on 2017. Lymphocyte pct 21.4 % [facility] Comment: Interpretive Data Percent cell count reference ranges are not reported, since discordance with absolute values may lead to misinterpretation of CBC data. Current Interpretive Data was last revised on 2017. Monocyte pct 10.4 % [facility] Comment: Interpretive Data Percent cell count reference ranges are not reported, since discordance with absolute values may lead to misinterpretation of CBC data. Current Interpretive Data was last revised on 2017. Eosinophil pct 3.2 % [facility] Comment: Interpretive Data Percent cell count reference ranges are not reported, since discordance with absolute values may lead to misinterpretation of CBC data. Current Interpretive Data was last revised on 2017. Basophil pct 0.6 % [facility] Comment: Interpretive Data Percent cell count reference ranges are not reported, since discordance with absolute values may lead to misinterpretation of CBC data. Current Interpretive Data was last revised on 2017. Blood 08/15/2024 4:14 AM CDT 08/15/2024 4:53 AM CDT us Rocio Mccarthy MD LAB BLOOD ORDERABLES Final Res ult [facility] [place] [address] * (ABNORMAL) CBC with auto differential (08/15/2024 4:14 AM CDT) [facility] WBC 7.79 3.80 - 9.90 K/cumm Hgb 8.2(L) 11.9 - 15.5 g/dL [facility] Hct 25.5(L) 35.6 - 45.5 % [facility] Plt 369 150 - 400 K/cumm [facility] MPV 9.9 9.1 - 12.3 fL [facility] RBC 3.82(L) 3.90 - 5.20 M/cumm [facility] MCV 66.8(L) 81.3 - 96.4 fL [facility] MCH 21.5(L) 27.1 - 33.3 pg [facility] MCHC 32.2(L) 32.3 - 35.7 g/dL [facility] RDW CV 18.7(H) 11.1 - 14.9 % [facility] RDW SD 43.8 35.7 - 48.1 fL [facility] NRBC abs 0.00 0.00 - 0.01 K/cumm [facility] Blood 08/15/2024 4:14 AM CDT 08/15/2024 4:53 AM CDT Rocio Mccarthy MD LAB BLOOD ORDERABLES Final Res ult [facility] [place] [address] * (ABNORMAL) Basic metabolic panel (08/15/2024 4:14 AM CDT) [facility] Sodium 140 135 - 145 mmol/L Potassium, pl 4.8 3.3 - 4.9 mmol/L [facility] Chloride 108 97 - 110 mmol/L [facility] CO2 28 22 - 32 mmol/L [facility] Anion gap 4 2 - 15 mmol/L [facility] BUN 30(H) 6 - 25 mg/dL [facility] Creatinine 0.71 0.60 - 1.10 mg/dL [facility] Glucose 84 70 - 199 mg/dL [facility] Comment: Interpretive Data Fasting glucose >/= 126 mg/dl is diagnostic for diabetes. Fasting is defined as no caloric intake for at least 8 hours. Fasting glucose between 100 mg/dl to 125 mg/dl is diagnostic of prediabetes. In a patient with classic symptoms of hyperglycemia or hyperglycemic crisis, a random glucose >/= 200 mg/dl is diagnostic for diabetes. In the absence of unequivocal hyperglycemia, results should be confirmed by repeat testing. The classification and Diagnosis of Diabetes Diabetes Care 202; 46: S19-S40. Current interpretive data was last revised 2022. Calcium 8.7 8.5 - 10.3 mg/dL [facility] Blood 08/15/2024 4:14 AM CDT 08/15/2024 4:53 AM CDT Rocio Mccarthy MD LAB BLOOD ORDERABLES Final Res ult [facility] [place] [address] * eGFR (08/13/2024 9:03 PM CDT) eGFR 64 >=60 mL/min/1. 73 m2 Comment: Interpretive Data Reference Interval Normal >/= 90 mL/min/1.73m2 Mildly decreased* 60 - 89 mL/min/1.73m2 Mildly to moderately decreased 45 - 59 mL/min/1.73m2 Moderately to severely decreased 30 - 44 mL/min/1.73m2 Severely decreased 15 - 29 mL/min/1.73m2 Kidney Failure < 15 mL/min/1.73m2 *Relative to young adult level Estimated glomerular filtration rate is determined by the 2020 CKD-EPI equation recommended by the National Kidney Foundation (A Unifying Approach to GFR Estimation: Recommendations of the NKF-ASK Task Force on Reassessing the Inclusion of Race in Diagnosing Kidney Disease, JASN 2020). The CKD-EPI equation should not be used for patients with unstable renal function and has not been validated in children and those over 70. Current interpretive data was last reviewed 2021. Blood 08/13/2024 9:03 PM CDT 08/13/2024 10:19 PM CDT Bing Gong MD LAB BLOOD ORDERABLES Final Re sult [facility] [place] [address] * (ABNORMAL) Differential, auto (08/13/2024 9:03 PM CDT) Neutrophil abs 7.71(H) 1.50 - 6.50 K/cumm Imm gran abs 0.14(H) 0.00 - 0.10 K/cumm [facility] Lymphocyte abs 0.99 0.80 - 3.30 K/cumm [facility] Monocyte abs 1.07(H) 0.20 - 0.80 K/cumm [facility] Eosinophil abs 0.32 0.00 - 0.50 K/cumm [facility] Basophil abs 0.07 0.00 - 0.10 K/cumm [facility] Neutrophil pct 74.8 % [facility] Comment: Interpretive Data Percent cell count reference ranges are not reported, since discordance with absolute values may lead to misinterpretation of CBC data. Current Interpretive Data was last revised on 2017. Imm gran pct 1.4 % [facility] Comment: Interpretive Data Percent cell count reference ranges are not reported, since discordance with absolute values may lead to misinterpretation of CBC data. Current Interpretive Data was last revised on 2017. Lymphocyte pct 9.6 % [facility] Comment: Interpretive Data Percent cell count reference ranges are not reported, since discordance with absolute values may lead to misinterpretation of CBC data. Current Interpretive Data was last revised on 2017. Monocyte pct 10.4 % [facility] Comment: Interpretive Data Percent cell count reference ranges are not reported, since discordance with absolute values may lead to misinterpretation of CBC data. Current Interpretive Data was last revised on 2017. Eosinophil pct 3.1 % [facility] Comment: Interpretive Data Percent cell count reference ranges are not reported, since discordance with absolute values may lead to misinterpretation of CBC data. Current Interpretive Data was last revised on 2017. Basophil pct 0.7 % [facility] Comment: Interpretive Data Percent cell count reference ranges are not reported, since discordance with absolute values may lead to misinterpretation of CBC data. Current Interpretive Data was last revised on 2017. Blood 08/13/2024 9:03 PM CDT 08/13/2024 10:19 PM CDT us Bing Gong MD LAB BLOOD ORDERABLES Final Re sult [facility] [place] [address] * (ABNORMAL) CBC with auto differential (08/13/2024 9:03 PM CDT) WBC 10.30(H) 3.80 - 9.90 K/cumm Hgb 7.9(L) 11.9 - 15.5 g/dL [facility] Hct 25.3(L) 35.6 - 45.5 % [facility] Plt 330 150 - 400 K/cumm [facility] MPV 9.6 9.1 - 12.3 fL [facility] RBC 3.73(L) 3.90 - 5.20 M/cumm [facility] MCV 67.8(L) 81.3 - 96.4 fL [facility] MCH 21.2(L) 27.1 - 33.3 pg [facility] MCHC 31.2(L) 32.3 - 35.7 g/dL [facility] RDW CV 18.8(H) 11.1 - 14.9 % [facility] RDW SD 44.5 35.7 - 48.1 fL [facility] NRBC abs 0.00 0.00 - 0.01 K/cumm [facility] Blood 08/13/2024 9:03 PM CDT 08/13/2024 10:19 PM CDT Bing Gong MD LAB BLOOD ORDERABLES Final Re sult [facility] [place] [address] * (ABNORMAL) Basic metabolic panel (08/13/2024 9:03 PM CDT) Pathologist [facility] Sodium 142 135 - 145 mmol/L Potassium, pl 4.4 3.3 - 4.9 mmol/L [facility] Chloride 108 97 - 110 mmol/L [facility] CO2 26 22 - 32 mmol/L [facility] Anion gap 8 2 - 15 mmol/L [facility] BUN 46(H) 6 - 25 mg/dL [facility] Creatinine 0.88 0.60 - 1.10 mg/dL [facility] Glucose 108 70 - 199 mg/dL [facility] Comment: Interpretive Data Fasting glucose >/= 126 mg/dl is diagnostic for diabetes. Fasting is defined as no caloric intake for at least 8 hours. Fasting glucose between 100 mg/dl to 125 mg/dl is diagnostic of prediabetes. In a patient with classic symptoms of hyperglycemia or hyperglycemic crisis, a random glucose >/= 200 mg/dl is diagnostic for diabetes. In the absence of unequivocal hyperglycemia, results should be confirmed by repeat testing. The classification and Diagnosis of Diabetes Diabetes Care 2021; 46: S19-S40. Current interpretive data was last revised 2022. Calcium 8.4(L) 8.5 - 10.3 mg/dL [facility] Blood 08/13/2024 9:03 PM CDT 08/13/2024 10:19 PM CDT us Bing Gong MD LAB BLOOD ORDERABLES Final Re sult Performing Organization Address City/[facility]/ZIP Co de Phone Number [facility] [place] [address] * (ABNORMAL) eGFR (08/12/2024 8:56 PM CDT) Pathologist [facility] eGFR 40(L) >=60 mL/min/1. 73 m2 Comment: Interpretive Data Reference Interval Normal >/= 90 mL/min/1.73m2 Mildly decreased* 60 - 89 mL/min/1.73m2 Mildly to moderately decreased 45 - 59 mL/min/1.73m2 Moderately to severely decreased 30 - 44 mL/min/1.73m2 Severely decreased 15 - 29 mL/min/1.73m2 Kidney Failure < 15 mL/min/1.73m2 *Relative to young adult level Estimated glomerular filtration rate is determined by the 2020 CKD-EPI equation recommended by the National Kidney Foundation (A Unifying Approach to GFR Estimation: Recommendations of the NKF-ASK Task Force on Reassessing the Inclusion of Race in Diagnosing Kidney Disease, JASN 2020). The CKD-EPI equation should not be used for patients with unstable renal function and has not been validated in children and those over 70. Current interpretive data was last reviewed 2021. Blood 08/12/2024 8:56 PM CDT 08/12/2024 9:58 PM CDT us Bing Gong MD LAB BLOOD ORDERABLES Final Re sult [facility] [place] [address] * (ABNORMAL) Differential, auto (08/12/2024 8:56 PM CDT) [facility] Neutrophil abs 7.3(H) 1.5 - 6.5 K/cumm Imm gran abs 0.1 0.0 - 0.1 K/cumm [facility] Lymphocyte abs 0.9 0.8 - 3.3 K/cumm [facility] Monocyte abs 0.7 0.2 - 0.8 K/cumm [facility] Eosinophil abs 0.3 0.0 - 0.5 K/cumm [facility] Basophil abs 0.1 0.0 - 0.1 K/cumm [facility] Neutrophil pct 78.8 % [facility] Comment: Interpretive Data Percent cell count reference ranges are not reported, since discordance with absolute values may lead to misinterpretation of CBC data. Current Interpretive Data was last revised on 2017. Imm gran pct 1.0 % [facility] Comment: Interpretive Data Percent cell count reference ranges are not reported, since discordance with absolute values may lead to misinterpretation of CBC data. Current Interpretive Data was last revised on 2017. Lymphocyte pct 9.7 % [facility] Comment: Interpretive Data Percent cell count reference ranges are not reported, since discordance with absolute values may lead to misinterpretation of CBC data. Current Interpretive Data was last revised on 2017. Monocyte pct 7.1 % [facility] Comment: Interpretive Data Percent cell count reference ranges are not reported, since discordance with absolute values may lead to misinterpretation of CBC data. Current Interpretive Data was last revised on 2017. Eosinophil pct 2.9 % [facility] Comment: Interpretive Data Percent cell count reference ranges are not reported, since discordance with absolute values may lead to misinterpretation of CBC data. Current Interpretive Data was last revised on 2017. Basophil pct 0.5 % [facility] Comment: Interpretive Data Percent cell count reference ranges are not reported, since discordance with absolute values may lead to misinterpretation of CBC data. Current Interpretive Data was last revised on 2017. Blood 08/12/2024 8:56 PM CDT 08/12/2024 9:59 PM CDT us Bing Gong MD LAB BLOOD ORDERABLES Final Re sult [facility] Department [place] [address] * (ABNORMAL) CBC with auto differential (08/12/2024 8:56 PM CDT) WBC 9.3 3.8 - 9.9 K/cumm Hgb 7.9(L) 11.9 - 15.5 g/dL [facility] Hct 25.3(L) 35.6 - 45.5 % [facility] Plt 314 150 - 400 K/cumm [facility] MPV 10.2 9.1 - 12.3 fL [facility] RBC 3.74(L) 3.90 - 5.20 M/cumm [facility] MCV 67.6(L) 81.3 - 96.4 fL [facility] MCH 21.1(L) 27.1 - 33.3 pg [facility] MCHC 31.2(L) 32.3 - 35.7 g/dL [facility] RDW CV 19.3(H) 11.1 - 14.9 % [facility] RDW SD 44.0 35.7 - 48.1 fL [facility] NRBC abs 0.00 0.00 - 0.01 K/cumm [facility] Blood 08/12/2024 8:56 PM CDT 08/12/2024 9:59 PM CDT Bing Gong MD LAB BLOOD ORDERABLES Final Re sult [facility] [place] [address] * (ABNORMAL) Basic metabolic panel (08/12/2024 8:56 PM CDT) Sodium 137 135 - 145 mmol/L Potassium, pl 4.7 3.3 - 4.9 mmol/L [facility] Comment:Hemolyzed; Potassium value may be falsely elevated by as much as 0.6-1.0 mmol/L. Suggest redraw and reanalysis. Chloride 101 97 - 110 mmol/L [facility] CO2 25 22 - 32 mmol/L [facility] Anion gap 11 2 - 15 mmol/L [facility] BUN 57(H) 6 - 25 mg/dL [facility] Creatinine 1.29(H) 0.60 - 1.10 mg/dL [facility] Glucose 93 70 - 199 mg/dL [facility] Comment: Interpretive Data Fasting glucose >/= 126 mg/dl is diagnostic for diabetes. Fasting is defined as no caloric intake for at least 8 hours. Fasting glucose between 100 mg/dl to 125 mg/dl is diagnostic of prediabetes. In a patient with classic symptoms of hyperglycemia or hyperglycemic crisis, a random glucose >/= 200 mg/dl is diagnostic for diabetes. In the absence of unequivocal hyperglycemia, results should be confirmed by repeat testing. The classification and Diagnosis of Diabetes Diabetes Care 202; 46: S19-S40. Current interpretive data was last revised 2022. Calcium 8.6 8.5 - 10.3 mg/dL [facility] Blood 08/12/2024 8:56 PM CDT 08/12/2024 9:58 PM CDT Bing Gong MD LAB BLOOD ORDERABLES Final Re sult [facility] Department [place] [address] * (ABNORMAL) eGFR (08/12/2024 12:23 AM CDT) eGFR 46(L) >=60 mL/min/1. 73 m2 Comment: Interpretive Data Reference Interval Normal >/= 90 mL/min/1.73m2 Mildly decreased* 60 - 89 mL/min/1.73m2 Mildly to moderately decreased 45 - 59 mL/min/1.73m2 Moderately to severely decreased 30 - 44 mL/min/1.73m2 Severely decreased 15 - 29 mL/min/1.73m2 Kidney Failure < 15 mL/min/1.73m2 *Relative to young adult level Estimated glomerular filtration rate is determined by the 2020 CKD-EPI equation recommended by the National Kidney Foundation (A Unifying Approach to GFR Estimation: Recommendations of the NKF-ASK Task Force on Reassessing the Inclusion of Race in Diagnosing Kidney Disease, JASN 202). The CKD-EPI equation should not be used for patients with unstable renal function and has not been validated in children and those over 70. Current interpretive data was last reviewed 2021. Blood 08/12/2024 12:2 3 AM CDT 08/12/2024 12:52 AM CDT us Bing Gong MD LAB BLOOD ORDERABLES Final Re sult [facility] Department [place] [address] * (ABNORMAL) Differential, auto (08/12/2024 12:23 AM CDT) Neutrophil abs 8.5(H) 1.5 - 6.5 K/cumm Imm gran abs 0.1 0.0 - 0.1 K/cumm [facility] Lymphocyte abs 0.6(L) 0.8 - 3.3 K/cumm [facility] Monocyte abs 1.0(H) 0.2 - 0.8 K/cumm [facility] Eosinophil abs 0.2 0.0 - 0.5 K/cumm [facility] Basophil abs 0.1 0.0 - 0.1 K/cumm [facility] Neutrophil pct 81.9 % [facility] Comment: Interpretive Data Percent cell count reference ranges are not reported, since discordance with absolute values may lead to misinterpretation of CBC data. Current Interpretive Data was last revised on 2017. Imm gran pct 0.8 % [facility] Comment: Interpretive Data Percent cell count reference ranges are not reported, since discordance with absolute values may lead to misinterpretation of CBC data. Current Interpretive Data was last revised on 2017. Lymphocyte pct 6.0 % [facility] Comment: Interpretive Data Percent cell count reference ranges are not reported, since discordance with absolute values may lead to misinterpretation of CBC data. Current Interpretive Data was last revised on 2017. Monocyte pct 9.2 % [facility] Comment: Interpretive Data Percent cell count reference ranges are not reported, since discordance with absolute values may lead to misinterpretation of CBC data. Current Interpretive Data was last revised on 2017. Eosinophil pct 1.6 % [facility] Comment: Interpretive Data Percent cell count reference ranges are not reported, since discordance with absolute values may lead to misinterpretation of CBC data. Current Interpretive Data was last revised on 2017. Basophil pct 0.5 % [facility] Comment: Interpretive Data Percent cell count reference ranges are not reported, since discordance with absolute values may lead to misinterpretation of CBC data. Current Interpretive Data was last revised on 2017. Blood 08/12/2024 12:2 3 AM CDT 08/12/2024 12:52 AM CDT Bing Gong MD LAB BLOOD ORDERABLES Final Re sult Performing Organization Address City/[facility] Co de Phone Number [facility] [place] [address] * (ABNORMAL) CBC with auto differential (08/12/2024 12:23 AM CDT) WBC 10.3(H) 3.8 - 9.9 K/cumm Hgb 8.3(L) 11.9 - 15.5 g/dL [facility] Hct 26.8(L) 35.6 - 45.5 % [facility] Plt 294 150 - 400 K/cumm [facility] MPV 10.0 9.1 - 12.3 fL [facility] RBC 3.98 3.90 - 5.20 M/cumm [facility] MCV 67.3(L) 81.3 - 96.4 fL [facility] MCH 20.9(L) 27.1 - 33.3 pg [facility] MCHC 31.0(L) 32.3 - 35.7 g/dL [facility] RDW CV 18.4(H) 11.1 - 14.9 % [facility] RDW SD 43.4 35.7 - 48.1 fL [facility] NRBC abs 0.00 0.00 - 0.01 K/cumm [facility] Blood 08/12/2024 12:2 3 AM CDT 08/12/2024 12:52 AM CDT Bing Gong MD LAB BLOOD ORDERABLES Final Re sult Performing Organization Address City/[facility]/ZIP Co de Phone Number [facility] [place] [address] * (ABNORMAL) Basic metabolic panel (08/12/2024 12:23 AM CDT) Sodium 139 135 - 145 mmol/L Potassium, pl 4.9 3.3 - 4.9 mmol/L [facility] Chloride 105 97 - 110 mmol/L [facility] CO2 26 22 - 32 mmol/L [facility] Anion gap 8 2 - 15 mmol/L [facility] BUN 57(H) 6 - 25 mg/dL [facility] Creatinine 1.15(H) 0.60 - 1.10 mg/dL [facility] Glucose 117 70 - 199 mg/dL [facility] Comment: Interpretive Data Fasting glucose >/= 126 mg/dl is diagnostic for diabetes. Fasting is defined as no caloric intake for at least 8 hours. Fasting glucose between 100 mg/dl to 125 mg/dl is diagnostic of prediabetes. In a patient with classic symptoms of hyperglycemia or hyperglycemic crisis, a random glucose >/= 200 mg/dl is diagnostic for diabetes. In the absence of unequivocal hyperglycemia, results should be confirmed by repeat testing. The classification and Diagnosis of Diabetes Diabetes Care 2021; 46: S19-S40. Current interpretive data was last revised 2022. Calcium 9.0 8.5 - 10.3 mg/dL [facility] Blood 08/12/2024 12:2 3 AM CDT 08/12/2024 12:52 AM CDT us Bing Gong MD LAB BLOOD ORDERABLES Final Re sult [facility] Department [place] [address] * CT Facial Bones W WO Contrast (08/11/2024 11:14 AM CDT) Anatomical Region Laterality Modality Head and Neck N/A Computed Tomogra phy 08/11/2024 5:58 PM CDT Impressions 08/12/2024 12:33 PM CDT Mild left supraorbital soft tissue swelling. Otherwise, unremarkable exam with no visualized acute findings. Dictated by: Rodney Pappas D.O. The radiology attending physician has personally reviewed this study, and had reviewed and/or edited this written report and agrees with it. Electronically signed by: Yosi Palacio MD Narrative 08/12/2024 12:33 PM CDT EXAMINATION: CT of the maxillofacial bones, orbits, and paranasal sinuses with contrast HISTORY: 88 years-old Female with Sensory abnormality, trigeminal origin (CN 5). Left eyelid swelling. TECHNIQUE: Computed tomography of the maxillofacial bones, orbits, and paranasal sinuses was performed with intravenous contrast according to the standard protocol. Contrast information: 69 mL Optiray-350 IV COMPARISON: MRI head 08/08/2024. FINDINGS: Left cataract extraction. The bilateral globes are intact. The frontal, ethmoid, and sphenoid sinuses are normal. The maxillary sinuses are normal The mandible is normal. No areas of bony erosion are identified. The remaining maxillofacial bones are unremarkable. The mastoid air cells are normal. There is no acute fracture. There is no abnormal contrast enhancement. Mild left supraorbital soft tissue swelling. Procedure Note Yosi Palacio MD - 08/12/2024 EXAMINATION: CT of the maxillofacial bones, orbits, and paranasal sinuses with contrast HISTORY: 88 years-old Female with Sensory abnormality, trigeminal origin (CN 5). Left eyelid swelling. TECHNIQUE: Computed tomography of the maxillofacial bones, orbits, and paranasal sinuses was performed with intravenous contrast according to the standard protocol. Contrast information: 69 mL Optiray-350 IV COMPARISON: MRI head 08/08/2024. FINDINGS: Left cataract extraction. The bilateral globes are intact. The frontal, ethmoid, and sphenoid sinuses are normal. The maxillary sinuses are normal The mandible is normal. No areas of bony erosion are identified. The remaining maxillofacial bones are unremarkable. The mastoid air cells are normal. There is no acute fracture. There is no abnormal contrast enhancement. Mild left supraorbital soft tissue swelling. IMPRESSION: Mild left supraorbital soft tissue swelling. Otherwise, unremarkable exam with no visualized acute findings. Dictated by: Rodney Pappas D.O. The radiology attending physician has personally reviewed this study, and had reviewed and/or edited this written report and agrees with it. Electronically signed by: Yosi Palacio MD Bing Gong MD IMG CT PROCEDURES Final Resul t * (ABNORMAL) Hemoglobin and hematocrit (08/11/2024 9:37 AM CDT) Pathologist [facility] Hgb 8.1(L) 11.9 - 15.5 g/dL Hct 26.4(L) 35.6 - 45.5 % [facility] Blood 08/11/2024 9:37 AM CDT 08/11/2024 10:33 AM CDT Bing Gong MD LAB BLOOD ORDERABLES Final Re sult [facility] Department [place] [address] * Type and screen (08/11/2024 9:37 AM CDT) [facility] ABO Rh O Positive Tatiana, indirect Negative [facility] Blood 08/11/2024 9:37 AM CDT 08/11/2024 10:26 AM CDT Narrative [facility] - 08/11/2024 11:38 AM CDT Has the patient had Daratumumab or Isatuximab in the past 6 months?->Unknown Bing Gong MD LAB BLOOD BANK TEST ORDERABLE S Final Result [facility] Department [place] [address] * (ABNORMAL) eGFR (08/11/2024 3:26 AM CDT) [facility] eGFR 57(L) >=60 mL/min/1. 73 m2 Comment: Interpretive Data Reference Interval Normal >/= 90 mL/min/1.73m2 Mildly decreased* 60 - 89 mL/min/1.73m2 Mildly to moderately decreased 45 - 59 mL/min/1.73m2 Moderately to severely decreased 30 - 44 mL/min/1.73m2 Severely decreased 15 - 29 mL/min/1.73m2 Kidney Failure < 15 mL/min/1.73m2 *Relative to young adult level Estimated glomerular filtration rate is determined by the 2020 CKD-EPI equation recommended by the National Kidney Foundation (A Unifying Approach to GFR Estimation: Recommendations of the NKF-ASK Task Force on Reassessing the Inclusion of Race in Diagnosing Kidney Disease, JASN 202). The CKD-EPI equation should not be used for patients with unstable renal function and has not been validated in children and those over 70. Current interpretive data was last reviewed 2021. Blood 08/11/2024 3:26 AM CDT 08/11/2024 4:29 AM CDT us Bing Gong MD LAB BLOOD ORDERABLES Final Re sult [facility] [place] [address] * Differential, auto (08/11/2024 3:26 AM CDT) Neutrophil abs 3.5 1.5 - 6.5 K/cumm Imm gran abs 0.1 0.0 - 0.1 K/cumm [facility] Lymphocyte abs 1.1 0.8 - 3.3 K/cumm [facility] Monocyte abs 0.6 0.2 - 0.8 K/cumm [facility] Eosinophil abs 0.2 0.0 - 0.5 K/cumm [facility] Basophil abs 0.0 0.0 - 0.1 K/cumm [facility] Neutrophil pct 64.0 % [facility] Comment: Interpretive Data Percent cell count reference ranges are not reported, since discordance with absolute values may lead to misinterpretation of CBC data. Current Interpretive Data was last revised on 2017. Imm gran pct 0.9 % [facility] Comment: Interpretive Data Percent cell count reference ranges are not reported, since discordance with absolute values may lead to misinterpretation of CBC data. Current Interpretive Data was last revised on 2017. Lymphocyte pct 20.4 % [facility] Comment: Interpretive Data Percent cell count reference ranges are not reported, since discordance with absolute values may lead to misinterpretation of CBC data. Current Interpretive Data was last revised on 2017. Monocyte pct 11.1 % [facility] Comment: Interpretive Data Percent cell count reference ranges are not reported, since discordance with absolute values may lead to misinterpretation of CBC data. Current Interpretive Data was last revised on 2017. Eosinophil pct 3.0 % [facility] Comment: Interpretive Data Percent cell count reference ranges are not reported, since discordance with absolute values may lead to misinterpretation of CBC data. Current Interpretive Data was last revised on 2017. Basophil pct 0.6 % [facility] Comment: Interpretive Data Percent cell count reference ranges are not reported, since discordance with absolute values may lead to misinterpretation of CBC data. Current Interpretive Data was last revised on 2017. Blood 08/11/2024 3:26 AM CDT 08/11/2024 4:29 AM CDT us Bing Gong MD LAB BLOOD ORDERABLES Final Re sult [facility] [place] [address] * (ABNORMAL) CBC with auto differential (08/11/2024 3:26 AM CDT) WBC 5.4 3.8 - 9.9 K/cumm Hgb 7.6(L) 11.9 - 15.5 g/dL [facility] Hct 24.2(L) 35.6 - 45.5 % [facility] Plt 262 150 - 400 K/cumm [facility] MPV 10.1 9.1 - 12.3 fL [facility] RBC 3.59(L) 3.90 - 5.20 M/cumm [facility] MCV 67.4(L) 81.3 - 96.4 fL [facility] MCH 21.2(L) 27.1 - 33.3 pg [facility] MCHC 31.4(L) 32.3 - 35.7 g/dL [facility] RDW CV 18.1(H) 11.1 - 14.9 % [facility] RDW SD 43.5 35.7 - 48.1 fL [facility] NRBC abs 0.00 0.00 - 0.01 K/cumm [facility] Blood 08/11/2024 3:26 AM CDT 08/11/2024 4:29 AM CDT Bing Gong MD LAB BLOOD ORDERABLES Final Re sult Performing Organization Address [facility] Co de Phone Number [facility] [address] [place] [address] * (ABNORMAL) Vitamin D 25 hydroxy (08/11/2024 3:26 AM CDT) Pathologist [facility] Vitamin D 25-OH 22(L) 30 - 80 ng/mL Blood 08/11/2024 3:26 AM CDT 08/11/2024 4:29 AM CDT Bing Gong MD LAB BLOOD ORDERABLES Final Re sult Performing Organization Address [facility] de Phone Number [facility] [place] [address] * Vitamin B1 (08/11/2024 3:26 AM CDT) Pathologist [facility] Thiamine (Vit B1) 92 70 - 180 nmol/L [facility] Comment: ADDITIONAL INFORMATION This test was developed and its performance characteristics determined by [facility] in a manner consistent with CLIA requirements. This test has not been cleared or approved by the U.S. Food and Drug Administration. Test Performed by: [facility] - [address] [address] Service Center Manager: Karla Egan Ph.D.; CLIA# [id number] Blood 08/11/2024 3:26 AM CDT 08/11/2024 4:19 AM CDT Bing Gong MD LAB BLOOD ORDERABLES Final Re sult Performing Organization Address [facility] de Phone Number [facility] [place] [address] [facility] * (ABNORMAL) Vitamin B6 (08/11/2024 3:26 AM CDT) Pathologist [facility] Pyridoxal phosphate (Vit B6) 3(L) 5 - 50 mcg/L [facility] Comment: ADDITIONAL INFORMATION This test was developed and its performance characteristics determined by [facility] in a manner consistent with CLIA requirements. This test has not been cleared or approved by the U.S. Food and Drug Administration. Test Performed by: [facility] [address] [place] [address] Service Center Manager: Karla Egan Ph.D.; CLIA# [id number] Blood 08/11/2024 3:26 AM CDT 08/11/2024 4:19 AM CDT Bing Gong MD LAB BLOOD ORDERABLES Final Re sult Performing Organization Address [facility] de Phone Number [facility] [place] [address] [facility] * (ABNORMAL) Basic metabolic panel (08/11/2024 3:26 AM CDT) [facility] Sodium 140 135 - 145 mmol/L Potassium, pl 4.5 3.3 - 4.9 mmol/L [facility] Chloride 105 97 - 110 mmol/L [facility] CO2 28 22 - 32 mmol/L [facility] Anion gap 7 2 - 15 mmol/L [facility] BUN 39(H) 6 - 25 mg/dL [facility] Creatinine 0.97 0.60 - 1.10 mg/dL [facility] Glucose 88 70 - 199 mg/dL [facility] Comment: Interpretive Data Fasting glucose >/= 126 mg/dl is diagnostic for diabetes. Fasting is defined as no caloric intake for at least 8 hours. Fasting glucose between 100 mg/dl to 125 mg/dl is diagnostic of prediabetes. In a patient with classic symptoms of hyperglycemia or hyperglycemic crisis, a random glucose >/= 200 mg/dl is diagnostic for diabetes. In the absence of unequivocal hyperglycemia, results should be confirmed by repeat testing. The classification and Diagnosis of Diabetes Diabetes Care 2021; 46: S19-S40. Current interpretive data was last revised 2022. Calcium 8.6 8.5 - 10.3 mg/dL [facility] Blood 08/11/2024 3:26 AM CDT 08/11/2024 4:29 AM CDT Bing Gong MD LAB BLOOD ORDERABLES Final Re sult [facility] [place] [address] * (ABNORMAL) POCT glucose (08/10/2024 11:31 AM CDT) Glucose, POC 206(H) 70 - 199 mg/dL Blood 08/10/2024 11:3 1 AM CDT 08/10/2024 11:31 AM CDT Bing Gong MD LAB POCT ORDERABLES - DEVICE Final Result [facility] [place] [address] * (ABNORMAL) Hemoglobin and hematocrit (08/10/2024 9:46 AM CDT) Hgb 8.4(L) 11.9 - 15.5 g/dL Hct 26.3(L) 35.6 - 45.5 % [facility] Blood 08/10/2024 9:46 AM CDT 08/10/2024 10:21 AM CDT Bing Gong MD LAB BLOOD ORDERABLES Final Re sult Performing Organization Address City/[facility]/ZIP Co de Phone Number [facility] [place] [address] * POCT glucose (08/10/2024 7:43 AM CDT) Glucose, POC 99 70 - 199 mg/dL Blood 08/10/2024 7:43 AM CDT 08/10/2024 7:43 AM CDT Bing Gong MD LAB POCT ORDERABLES - DEVICE Final Result Performing Organization Address City/[facility] Co de Phone Number [facility] [place] [address] * eGFR (08/10/2024 3:31 AM CDT) eGFR 71 >=60 mL/min/1. 73 m2 Comment: Interpretive Data Reference Interval Normal >/= 90 mL/min/1.73m2 Mildly decreased* 60 - 89 mL/min/1.73m2 Mildly to moderately decreased 45 - 59 mL/min/1.73m2 Moderately to severely decreased 30 - 44 mL/min/1.73m2 Severely decreased 15 - 29 mL/min/1.73m2 Kidney Failure < 15 mL/min/1.73m2 *Relative to young adult level Estimated glomerular filtration rate is determined by the 2020 CKD-EPI equation recommended by the National Kidney Foundation (A Unifying Approach to GFR Estimation: Recommendations of the NKF-ASK Task Force on Reassessing the Inclusion of Race in Diagnosing Kidney Disease, JASN 202). The CKD-EPI equation should not be used for patients with unstable renal function and has not been validated in children and those over 70. Current interpretive data was last reviewed 2021. Blood 08/10/2024 3:31 AM CDT 08/10/2024 4:24 AM CDT us Maryam Gloria Terrazas DO LAB BLOOD ORDERABLE S Final Result [facility] [place] [address] * (ABNORMAL) Differential, auto (08/10/2024 3:31 AM CDT) Neutrophil abs 6.9(H) 1.5 - 6.5 K/cumm Imm gran abs 0.1 0.0 - 0.1 K/cumm [facility] Lymphocyte abs 1.1 0.8 - 3.3 K/cumm [facility] Monocyte abs 0.9(H) 0.2 - 0.8 K/cumm [facility] Eosinophil abs 0.2 0.0 - 0.5 K/cumm [facility] Basophil abs 0.0 0.0 - 0.1 K/cumm [facility] Neutrophil pct 75.2 % [facility] Comment: Interpretive Data Percent cell count reference ranges are not reported, since discordance with absolute values may lead to misinterpretation of CBC data. Current Interpretive Data was last revised on 2017. Imm gran pct 0.5 % [facility] Comment: Interpretive Data Percent cell count reference ranges are not reported, since discordance with absolute values may lead to misinterpretation of CBC data. Current Interpretive Data was last revised on 2017. Lymphocyte pct 12.4 % [facility] Comment: Interpretive Data Percent cell count reference ranges are not reported, since discordance with absolute values may lead to misinterpretation of CBC data. Current Interpretive Data was last revised on 2017. Monocyte pct 9.8 % [facility] Comment: Interpretive Data Percent cell count reference ranges are not reported, since discordance with absolute values may lead to misinterpretation of CBC data. Current Interpretive Data was last revised on 2017. Eosinophil pct 1.8 % [facility] Comment: Interpretive Data Percent cell count reference ranges are not reported, since discordance with absolute values may lead to misinterpretation of CBC data. Current Interpretive Data was last revised on 2017. Basophil pct 0.3 % [facility] Comment: Interpretive Data Percent cell count reference ranges are not reported, since discordance with absolute values may lead to misinterpretation of CBC data. Current Interpretive Data was last revised on 2017. Blood 08/10/2024 3:31 AM CDT 08/10/2024 4:24 AM CDT us Maryam Terrazas DO LAB BLOOD ORDERABLE S Final Result [facility] [place] [address] * (ABNORMAL) CBC with auto differential (08/10/2024 3:31 AM CDT) WBC 9.2 3.8 - 9.9 K/cumm Hgb 8.4(L) 11.9 - 15.5 g/dL [facility] Hct 26.5(L) 35.6 - 45.5 % [facility] Plt 278 150 - 400 K/cumm [facility] MPV 10.4 9.1 - 12.3 fL [facility] RBC 3.96 3.90 - 5.20 M/cumm [facility] MCV 66.9(L) 81.3 - 96.4 fL [facility] MCH 21.2(L) 27.1 - 33.3 pg [facility] MCHC 31.7(L) 32.3 - 35.7 g/dL [facility] RDW CV 18.6(H) 11.1 - 14.9 % [facility] RDW SD 43.8 35.7 - 48.1 fL [facility] NRBC abs 0.00 0.00 - 0.01 K/cumm [facility] Blood 08/10/2024 3:31 AM CDT 08/10/2024 4:24 AM CDT us Maryam Rizoi Giacomino DO LAB BLOOD ORDERABLE S Final Result Performing Organization Address [facility] Co de Phone Number [facility] [place] [address] * Erythrocyte sedimentation rate (08/10/2024 3:31 AM CDT) Erythrocyte sedimentation rate 26 1 - 30 mm/hr Blood 08/10/2024 3:31 AM CDT 08/10/2024 4:28 AM CDT Bing Gong MD LAB BLOOD ORDERABLES Final Re sult Performing Organization Address [facility] de Phone Number [facility] [place] [address] * (ABNORMAL) CRP (acute phase) (08/10/2024 3:31 AM CDT) CRP 10.1(H) <=10.0 mg/L Blood 08/10/2024 3:31 AM CDT 08/10/2024 4:24 AM CDT us Bing Gong MD LAB BLOOD ORDERABLES Final Re sult Performing Organization Address [facility] Co de Phone Number [facility] Department [place] [address] * Magnesium (08/10/2024 3:31 AM CDT) Magnesium 2.3 1.4 - 2.5 mg/dL Blood 08/10/2024 3:31 AM CDT 08/10/2024 4:24 AM CDT us Maryam Rizoi Giacomino DO LAB BLOOD ORDERABLE S Final Result Performing Organization Address [facility] Co de Phone Number [facility] Department [place] [address] * (ABNORMAL) Hepatic function panel (08/10/2024 3:31 AM CDT) [facility] Bilirubin, total 0.8 0.1 - 1.2 mg/dL Bilirubin, direct 0.3 0.1 - 0.3 mg/dL [facility] Protein, pl 5.7(L) 6.5 - 8.5 g/dL [facility] Albumin 3.3(L) 3.5 - 5.0 g/dL [facility] Alk phos 85 40 - 130 Units/L [facility] ALT 5(L) 7 - 45 Units/L [facility] AST 16 10 - 45 Units/L [facility] Blood 08/10/2024 3:31 AM CDT 08/10/2024 4:24 AM CDT Maryam Terrazas DO LAB BLOOD ORDERABLE S Final Result [facility] Department [place] [address] * (ABNORMAL) Basic metabolic panel (08/10/2024 3:31 AM CDT) [facility] Sodium 142 135 - 145 mmol/L Potassium, pl 4.3 3.3 - 4.9 mmol/L [facility] Chloride 106 97 - 110 mmol/L [facility] CO2 29 22 - 32 mmol/L [facility] Anion gap 7 2 - 15 mmol/L [facility] BUN 28(H) 6 - 25 mg/dL [facility] Creatinine 0.80 0.60 - 1.10 mg/dL [facility] Glucose 76 70 - 199 mg/dL [facility] Comment: Interpretive Data Fasting glucose >/= 126 mg/dl is diagnostic for diabetes. Fasting is defined as no caloric intake for at least 8 hours. Fasting glucose between 100 mg/dl to 125 mg/dl is diagnostic of prediabetes. In a patient with classic symptoms of hyperglycemia or hyperglycemic crisis, a random glucose >/= 200 mg/dl is diagnostic for diabetes. In the absence of unequivocal hyperglycemia, results should be confirmed by repeat testing. The classification and Diagnosis of Diabetes Diabetes Care 2021; 46: S19-S40. Current interpretive data was last revised 2022. Calcium 9.0 8.5 - 10.3 mg/dL [facility] Blood 08/10/2024 3:31 AM CDT 08/10/2024 4:24 AM CDT us Maryam Terrazas DO LAB BLOOD ORDERABLE S Final Result Performing Organization Address City/[facility]/ZIP Co de Phone Number [facility] [place] [address] * POCT glucose (08/09/2024 7:56 PM CDT) Glucose, POC 188 70 - 199 mg/dL Blood 08/09/2024 7:56 PM CDT 08/09/2024 7:56 PM CDT us Ramila Mccord MD LAB POCT ORDERABLES - DEVICE Final Result Performing Organization Address [facility] Co de Phone Number [facility] [place] [address] * POCT glucose (08/09/2024 5:01 PM CDT) Glucose, POC 145 70 - 199 mg/dL Blood 08/09/2024 5:01 PM CDT 08/09/2024 5:01 PM CDT us Ramila Mccord MD LAB POCT ORDERABLES - DEVICE Final Result Performing Organization Address [facility] Co de Phone Number [facility] [place] [address] * POCT glucose (08/09/2024 12:05 PM CDT) Glucose, POC 120 70 - 199 mg/dL Blood 08/09/2024 12:0 5 PM CDT 08/09/2024 12:05 PM CDT us Maryam Dugolenski Giacomino DO LAB POCT ORDERABLES - DEVICE Final Result Performing Organization Address City/[facility]/ZIP Co de Phone Number [facility] Department [place] [address] * POCT glucose (08/09/2024 7:45 AM CDT) Glucose, POC 127 70 - 199 mg/dL Blood 08/09/2024 7:45 AM CDT 08/09/2024 7:45 AM CDT Maryam Dugolenski Giacomino DO LAB POCT ORDERABLES - DEVICE Final Result Performing Organization Address [facility] Co de Phone Number [facility] [place] [address] * eGFR (08/09/2024 6:23 AM CDT) eGFR 72 >=60 mL/min/1. 73 m2 Comment: Interpretive Data Reference Interval Normal >/= 90 mL/min/1.73m2 Mildly decreased* 60 - 89 mL/min/1.73m2 Mildly to moderately decreased 45 - 59 mL/min/1.73m2 Moderately to severely decreased 30 - 44 mL/min/1.73m2 Severely decreased 15 - 29 mL/min/1.73m2 Kidney Failure < 15 mL/min/1.73m2 *Relative to young adult level Estimated glomerular filtration rate is determined by the 2020 CKD-EPI equation recommended by the National Kid[employer] (A Unifying Approach to GFR Estimation: Recommendations of the NKF-ASK Task Force on Reassessing the Inclusion of Race in Diagnosing Kidney Disease, JASN 2020). The CKD-EPI equation should not be used for patients with unstable renal function and has not been validated in children and those over 70. Current interpretive data was last reviewed 2021. Blood 08/09/2024 6:23 AM CDT 08/09/2024 6:47 AM CDT us Maryam Gloria Terrazas DO LAB BLOOD ORDERABLE S Final Result [facility] [place] [address] * (ABNORMAL) Differential, auto (08/09/2024 6:23 AM CDT) Neutrophil abs 4.7 1.5 - 6.5 K/cumm Imm gran abs 0.1 0.0 - 0.1 K/cumm [facility] Lymphocyte abs 0.7(L) 0.8 - 3.3 K/cumm [facility] Monocyte abs 0.4 0.2 - 0.8 K/cumm [facility] Eosinophil abs 0.1 0.0 - 0.5 K/cumm [facility] Basophil abs 0.0 0.0 - 0.1 K/cumm [facility] Neutrophil pct 79.5 % [facility] Comment: Interpretive Data Percent cell count reference ranges are not reported, since discordance with absolute values may lead to misinterpretation of CBC data. Current Interpretive Data was last revised on 2017. Imm gran pct 0.8 % [facility] Comment: Interpretive Data Percent cell count reference ranges are not reported, since discordance with absolute values may lead to misinterpretation of CBC data. Current Interpretive Data was last revised on 2017. Lymphocyte pct 12.0 % [facility] Comment: Interpretive Data Percent cell count reference ranges are not reported, since discordance with absolute values may lead to misinterpretation of CBC data. Current Interpretive Data was last revised on 2017. Monocyte pct 6.6 % [facility] Comment: Interpretive Data Percent cell count reference ranges are not reported, since discordance with absolute values may lead to misinterpretation of CBC data. Current Interpretive Data was last revised on 2017. Eosinophil pct 0.8 % [facility] Comment: Interpretive Data Percent cell count reference ranges are not reported, since discordance with absolute values may lead to misinterpretation of CBC data. Current Interpretive Data was last revised on 2017. Basophil pct 0.3 % [facility] Comment: Interpretive Data Percent cell count reference ranges are not reported, since discordance with absolute values may lead to misinterpretation of CBC data. Current Interpretive Data was last revised on 2017. Blood 08/09/2024 6:23 AM CDT 08/09/2024 6:48 AM CDT us Maryam Terrazas DO LAB BLOOD ORDERABLE S Final Result [facility] [place] [address] * (ABNORMAL) CBC with auto differential (08/09/2024 6:23 AM CDT) WBC 5.9 3.8 - 9.9 K/cumm Hgb 9.6(L) 11.9 - 15.5 g/dL [facility] Hct 29.8(L) 35.6 - 45.5 % [facility] Plt 310 150 - 400 K/cumm [facility] MPV 9.3 9.1 - 12.3 fL [facility] RBC 4.46 3.90 - 5.20 M/cumm [facility] MCV 66.8(L) 81.3 - 96.4 fL [facility] MCH 21.5(L) 27.1 - 33.3 pg [facility] MCHC 32.2(L) 32.3 - 35.7 g/dL [facility] RDW CV 18.9(H) 11.1 - 14.9 % [facility] RDW SD 43.5 35.7 - 48.1 fL [facility] NRBC abs 0.00 0.00 - 0.01 K/cumm [facility] Blood 08/09/2024 6:23 AM CDT 08/09/2024 6:48 AM CDT us Maryam Dubrennenlenski Giacomino DO LAB BLOOD ORDERABLE S Final Result [facility] [place] [address] * Magnesium (08/09/2024 6:23 AM CDT) Pathologist [facility] Magnesium 2.3 1.4 - 2.5 mg/dL Blood 08/09/2024 6:23 AM CDT 08/09/2024 6:47 AM CDT Maryam Shermanski Giacomino DO LAB BLOOD ORDERABLE S Final Result Performing Organization Address [facility] Co de Phone Number [facility] [place] [address] * Hepatic function panel (08/09/2024 6:23 AM CDT) Bilirubin, total 1.0 0.1 - 1.2 mg/dL Bilirubin, direct 0.3 0.1 - 0.3 mg/dL [facility] Protein, pl 6.9 6.5 - 8.5 g/dL [facility] Albumin 3.5 3.5 - 5.0 g/dL [facility] Alk phos 106 40 - 130 Units/L [facility] ALT 12 7 - 45 Units/L [facility] AST 30 10 - 45 Units/L [facility] Blood 08/09/2024 6:23 AM CDT 08/09/2024 6:47 AM CDT Maryam Dubrennenlenski Giacomino DO LAB BLOOD ORDERABLE S Final Result Performing Organization Address City/[facility]/ZIP Co de Phone Number [facility] [place] [address] * Basic metabolic panel (08/09/2024 6:23 AM CDT) Sodium 145 135 - 145 mmol/L Potassium, pl 4.5 3.3 - 4.9 mmol/L [facility] Chloride 106 97 - 110 mmol/L [facility] CO2 28 22 - 32 mmol/L [facility] Anion gap 11 2 - 15 mmol/L [facility] BUN 24 6 - 25 mg/dL [facility] Creatinine 0.79 0.60 - 1.10 mg/dL [facility] Glucose 114 70 - 199 mg/dL [facility] Comment: Interpretive Data Fasting glucose >/= 126 mg/dl is diagnostic for diabetes. Fasting is defined as no caloric intake for at least 8 hours. Fasting glucose between 100 mg/dl to 125 mg/dl is diagnostic of prediabetes. In a patient with classic symptoms of hyperglycemia or hyperglycemic crisis, a random glucose >/= 200 mg/dl is diagnostic for diabetes. In the absence of unequivocal hyperglycemia, results should be confirmed by repeat testing. The classification and Diagnosis of Diabetes Diabetes Care 2021; 46: S19-S40. Current interpretive data was last revised 2022. Calcium 9.6 8.5 - 10.3 mg/dL [facility] Blood 08/09/2024 6:23 AM CDT 08/09/2024 6:47 AM CDT us Maryam Terrazas DO LAB BLOOD ORDERABLE S Final Result [facility] [place] [address] * MRI Brain Incl Orbits WO Contrast (08/09/2024 12:13 AM CDT) Anatomical Region Laterality Modality Head and Neck N/A Magnetic Resonan ce 08/09/2024 9:00 AM CDT Impressions 08/09/2024 10:44 AM CDT Limited exam which was terminated early. Given the limitations: No acute intracranial abnormality. Normal orbits. No mass lesion along the course of the trigeminal nerve. Dictated by: Lemuel Monreal M.D. The radiology attending physician has personally reviewed this study, and had reviewed and/or edited this written report and agrees with it. Electronically signed by: Andria Rayo MD Narrative 08/09/2024 10:44 AM CDT EXAMINATION: 1. Magnetic resonance imaging (MRI) of the brain and brainstem without contrast 2. Magnetic resonance imaging (MRI) of the orbits without contrast HISTORY: Left facial pain, trigeminal neuralgia TECHNIQUE: Multiplanar multi-weighted MRI of the brain and brainstem was performed without intravenous contrast using the general brain protocol. Multiplanar multi-weighted MRI of the orbits was performed without intravenous contrast using the standard protocol. This included multiplanar high resolution imaging of the orbits and optic nerves. COMPARISON: 11/20/2022 FINDINGS: Limited exam, which was terminated early due to patient inability to tolerate the exam. ORBITS: Both globes are normal in shape and outline without proptosis. The extraocular muscles are normal in size. No intra- or extraconal masses are present. The intraconal fat is normal. The orbital jara are intact. The lacrimal glands are normal in appearance. Meckel's cave appears normal on each side. The carotid artery flow voids are normal. The optic nerves and optic chiasm are normal. The suprasellar cistern is normal. BRAIN: Small right frontal scalp contusion. The superior sagittal sinus demonstrates normal venous flow. The corpus callosum is normal in shape and signal intensity. The posterior fossa is unremarkable. The pituitary and sella are normal. The brainstem and craniocervical junction are unremarkable. Diffusion weighted images reveal no hyperintensities to suggest acute cerebral infarction. The susceptibility weighted sequences reveal no evidence of acute or chronic hemorrhage. Diffuse cerebral atrophy with proportional ex vacuo ventricular dilatation. Scattered white matter T2/FLAIR hyperintensities are nonspecific but most commonly due to chronic small vessel ischemia. The paranasal sinuses are normal. The visualized portions of the mastoids are unremarkable. Lens replacement. Normal flow voids are demonstrated in the carotid arteries and basilar artery. Procedure Note Andria Rayo MD PhD - 08/09/2024 EXAMINATION: 1. Magnetic resonance imaging (MRI) of the brain and brainstem without contrast 2. Magnetic resonance imaging (MRI) of the orbits without contrast HISTORY: Left facial pain, trigeminal neuralgia TECHNIQUE: Multiplanar multi-weighted MRI of the brain and brainstem was performed without intravenous contrast using the general brain protocol. Multiplanar multi-weighted MRI of the orbits was performed without intravenous contrast using the standard protocol. This included multiplanar high resolution imaging of the orbits and optic nerves. COMPARISON: 11/20/2022 FINDINGS: Limited exam, which was terminated early due to patient inability to tolerate the exam. ORBITS: Both globes are normal in shape and outline without proptosis. The extraocular muscles are normal in size. No intra- or extraconal masses are present. The intraconal fat is normal. The orbital jara are intact. The lacrimal glands are normal in appearance. Meckel's cave appears normal on each side. The carotid artery flow voids are normal. The optic nerves and optic chiasm are normal. The suprasellar cistern is normal. BRAIN: Small right frontal scalp contusion. The superior sagittal sinus demonstrates normal venous flow. The corpus callosum is normal in shape and signal intensity. The posterior fossa is unremarkable. The pituitary and sella are normal. The brainstem and craniocervical junction are unremarkable. Diffusion weighted images reveal no hyperintensities to suggest acute cerebral infarction. The susceptibility weighted sequences reveal no evidence of acute or chronic hemorrhage. Diffuse cerebral atrophy with proportional ex vacuo ventricular dilatation. Scattered white matter T2/FLAIR hyperintensities are nonspecific but most commonly due to chronic small vessel ischemia. The paranasal sinuses are normal. The visualized portions of the mastoids are unremarkable. Lens replacement. Normal flow voids are demonstrated in the carotid arteries and basilar artery. IMPRESSION: Limited exam which was terminated early. Given the limitations: No acute intracranial abnormality. Normal orbits. No mass lesion along the course of the trigeminal nerve. Dictated by: Lemuel Monreal M.D. The radiology attending physician has personally reviewed this study, and had reviewed and/or edited this written report and agrees with it. Electronically signed by: Andria Rayo MD Maryam Terrazas DO [facility] [place]ED[place] Final Result * POCT glucose (08/08/2024 8:04 PM CDT) Glucose, POC 120 70 - 199 mg/dL Blood 08/08/2024 8:04 PM CDT 08/08/2024 8:04 PM CDT us Maryam Dugolenski Giacomino DO LAB POCT ORDERABLES - DEVICE Final Result Performing Organization Address [facility] Co de Phone Number [facility] [place] [address] * POCT glucose (08/08/2024 6:36 PM CDT) [facility] Signature Glucose, POC 142 70 - 199 mg/dL Blood 08/08/2024 6:36 PM CDT 08/08/2024 6:36 PM CDT Maryam Dugolenski Giacomino DO LAB POCT ORDERABLES - DEVICE Final Result Performing Organization Address [facility] Phone Number [facility] [place] [address] * Neuro CT Outside Consult (08/08/2024 5:21 PM CDT) Anatomical Region Laterality Modality N/A Computed Tomogra phy 08/08/2024 6:47 PM CDT Impressions 08/08/2024 7:00 PM CDT 1. No acute intracranial abnormality. 2. Liue-ry-pckejxbe degree of senescent white matter changes. 3. Normal CT appearance of the sinuses. The findings, conclusions and recommendations within this report do not replace the initial findings, conclusions and recommendations made at the facility where the study was performed based upon the imaging and clinical condition at that time. Comparison with the prior report and clinical history is necessary. The provided images may or may not represent the [place] source data set and thus may contain changes that may lower the accuracy of this second-opinion interpretation. Dictated by: Jesus Hoyt MD The radiology attending physician has personally reviewed this study, and had reviewed and/or edited this written report and agrees with it. Electronically signed by: Milagro Lee M.D. Narrative 08/08/2024 7:00 PM CDT EXAMINATION: RADIOLOGY CONSULTATION ON OUTSIDE IMAGING STUDY STUDY INITIALLY PERFORMED: 08/06/2024 at [facility]. TYPE OF STUDY: Multiple CT images of the head and sinuses without intravenous contrast are provided at the time of this interpretation. CONTRAST ROUTE: No contrast was administered. The protocol was adequate to address the clinical question. The outside final report was not available at the time of this second opinion interpretation. TYPE OF CONSULTATION: Consult on outside imaging study with images submitted through [facility] DATE OF CONSULTATION: 08/08/2024 6:42 PM HISTORY: 88-year-old who fell, facial pain. There is admitted in the hospital with bradycardia. COMPARISON: MRI 11/20/2022. FINDINGS: There is no acute intrarenal hemorrhage. There are calcific lesions of bilateral basal ganglia. There is symmetric periventricular white matter hypoattenuation which is nonspecific and likely represents chronic small vessel disease.. There is mild diffuse cortical volume loss with ex vacuo dilation of the ventricles. There is no midline shift or mass effect. Anderson-white differentiation is preserved. Orbits are normal. Mastoids are normal. Paranasal sinuses are normal. Atherosclerotic calcifications of intracranial vessels. No fracture. There are multiple dental restorations. Procedure Note Milagro Lee MD - 08/08/2024 EXAMINATION: RADIOLOGY CONSULTATION ON OUTSIDE IMAGING STUDY STUDY INITIALLY PERFORMED: 08/06/2024 at [facility]. TYPE OF STUDY: Multiple CT images of the head and sinuses without intravenous contrast are provided at the time of this interpretation. CONTRAST ROUTE: No contrast was administered. The protocol was adequate to address the clinical question. The outside final report was not available at the time of this second opinion interpretation. TYPE OF CONSULTATION: Consult on outside imaging study with images submitted through [facility] DATE OF CONSULTATION: 08/08/2024 6:42 PM HISTORY: 88-year-old who fell, facial pain. There is admitted in the hospital with bradycardia. COMPARISON: MRI 11/20/2022. FINDINGS: There is no acute intrarenal hemorrhage. There are calcific lesions of bilateral basal ganglia. There is symmetric periventricular white matter hypoattenuation which is nonspecific and likely represents chronic small vessel disease.. There is mild diffuse cortical volume loss with ex vacuo dilation of the ventricles. There is no midline shift or mass effect. Anderson-white differentiation is preserved. Orbits are normal. Mastoids are normal. Paranasal sinuses are normal. Atherosclerotic calcifications of intracranial vessels. No fracture. There are multiple dental restorations. IMPRESSION: 1. No acute intracranial abnormality. 2. Upfc-nz-tqzfncla degree of senescent white matter changes. 3. Normal CT appearance of the sinuses. The findings, conclusions and recommendations within this report do not replace the initial findings, conclusions and recommendations made at the facility where the study was performed based upon the imaging and clinical condition at that time. Comparison with the prior report and clinical history is necessary. The provided images may or may not represent the [place] source data set and thus may contain changes that may lower the accuracy of this second-opinion interpretation. Dictated by: Jesus Hoyt MD The radiology attending physician has personally reviewed this study, and had reviewed and/or edited this written report and agrees with it. Electronically signed by: Milagro Lee M.D. Bill Leblanc MD IM CT PROCEDURES Final Re sult * TRANSTHORACIC ECHO (TTE) COMPLETE W DOPPLER/CF W CONTRAST (08/08/2024 4:30 PM CDT) LV EF 55-60 % CONS SCIMAGE Anatomical Region Laterality Modality Ultrasound 08/08/2024 2:52 PM CDT Narrative 08/08/2024 4:40 PM CDT [facility] Cardiac Diagnostic [place] [address] Transthoracic Echocardiographic Report Patient Name: BRENNEN DIAZ L : 1935 (88y 9m) Gender: F Study Date: 08/08/2024 02:52:22 PM Ht(Inch): 65 Wt(Lb): 117.06 BSA: 1.56 Hospitalist: Adalid Wilson RDCS Location: [id number] Order Provider: MARYAM TERRAZAS Heart Rate: 59 BMI: 19.48 BP: 104 / 48 Ref Provider: MARYAM TERRAZAS PROCEDURES: Echocardiographic Report: Transthoracic complete echo with strain imaging and contrast, 2D, spectral and tissue Doppler, color flow Doppler, M-mode. Additional Procedures: Myocardial strain imaging was performed. Contrast: Contrast Enhancement was Employed: After initial imaging due to sub- optimal quality related to co-morbidity defined by patient's body habitus. 0.8 ml Optison Administered, (2.2 ml wasted). INDICATIONS: New Bradycardia. CONCLUSIONS: 1. Dilated left ventricle. Eccentric LV hypertrophy. Normal left ventricular systolic function. The Ejection Fraction is visually estimated to be 55-60 %. Grade II diastolic dysfunction (elevated mean LA pressure). The average global longitudinal strain is normal. 2. Normal right ventricular size. Normal right ventricular systolic function. 3. Moderately dilated left atrium. 4. Severe Right atrial dilatation. 5. Mild mitral annular calcification. Moderate mitral valve regurgitation. 6. Moderate nodular calcification of the aortic valve leaflets. Mildly restricted aortic cusps. Moderate aortic valve regurgitation and what appears to be incomplete coaptation of the aortic valve leaflets. The mean transaortic gradient is 7 mmHg. The aortic valve area by the continuity equation (using VTI) is 2.48 cm2. Aortic valve dimensionless index is 0.82. 7. Normal tricuspid valve structure. Mild tricuspid regurgitation. 8. 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 Dilation of the aortic root when indexed. Dilation of the ascending aorta when indexed. ATTESTATION: I have personally reviewed and interpreted this study without fellow or resident. - DISCLAIMER: The study images and the final report will be retained in the patient chart by the Echo Laboratory for the legally required time period. This chart constitutes the legal record of any testing performed. FINDINGS: Left Ventricle: Mildly dilated left ventricle based on 2D measurements. Severely dilated left ventricle based on volume index. Eccentric LV hypertrophy. Normal left ventricular systolic function. The Ejection Fraction is visually estimated to be 55-60 %. Grade II diastolic dysfunction (elevated mean LA pressure). The average global longitudinal strain is normal. The LV global strain is: -17.5 %. Paradoxical Septal motion. Right Ventricle: Normal right ventricular size. Normal right ventricular systolic function. Left Atrium: Moderately dilated left atrium. Right Atrium: Severe Right atrial dilatation. Mitral Valve: Mild mitral annular calcification. Moderate mitral valve regurgitation. Aortic Valve: Moderate nodular calcification of the aortic valve leaflets. Mildly restricted aortic cusps. Moderate aortic valve regurgitation and what appears to be incomplete coaptation of the aortic valve leaflets. The mean transaortic gradient is 7 mmHg. The aortic valve area by the continuity equation (using VTI) is 2.48 cm2. Aortic valve dimensionless index is 0.82. Tricuspid Valve: Normal tricuspid valve structure. Mild tricuspid regurgitation. Pulmonic Valve: Normal pulmonic valve structure. Trivial pulmonic regurgitation. No pulmonic valve stenosis present. Pericardium: No pericardial effusion. 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 Dilation of the aortic root when indexed. Dilation of the ascending aorta when indexed. IVC: IVC is normal in size. The IVC was <2.1 cm and collapsibility >50%. (est. RA pressure 0-5 mmHg). MEASUREMENTS: 2D/MM Value Range Doppler Value Range LVIDd 2D 5.28 cm [ 3.80 - 5.20 ] AV Peak Ulises 1.9 m/s [ 1.0 - 1.7 ] LVIDs 2D 3.90 cm [ 2.20 - 3.50 ] AV Peak PG 14.44 mmHg IVSd 2D 0.82 cm [ 0.60 - 0.90 ] AV Mean PG 7 mmHg LVPWd 2D 0.77 cm [ 0.60 - 0.90 ] AV VTI 43.9 cm LV Thickness Ratio 1.1 LVOT Peak Ulises 1.4 m/s [ 0.7 - 1.1 ] LV FS 2D 26.22 % [ 27.00 - 45.00 ] LVOT Peak PG 7.84 mmHg LV Mass 2D 152.61 g LVOT Mean PG 5 mmHg LV Mass Index 2D 97.83 g/m2 LVOT VTI 35.8 cm RWT 0.29 LVOT Diam 1.97 cm EDV Mod BP 161.78 ml [ 46.00 - 106.00 ] BENTLEY VTI 2.48 cm2 LV EDV Index 103.71 ml/m2 LVOT/AV VTI 0.82 - Dimensionless index (DVI) ESV Mod BP 74.40 ml [ 14.00 - 42.00 ] AI Peak Ulises 4.7 m/s EF Mod BP 54 % [ 54 - 74 ] AI Peak PG 89 mmHg Visually Estimated EF 55-60 % AI Decel Time 2097.60 sec LV GLS -17.5 % [ -25.0 - -18.0 ] AI Decel [place] 2.30 m/s2 LA Length 4C 6.21 cm AI PHT 608.30 msec LA Length 2C 6.70 cm MV E Peak Ulises 0.7 m/s [ 0.6 - 1.3 ] LA Volume BP 70.64 ml MV A Peak Ulises 0.5 m/s [ 1.0 - 1.2 ] LA Volume Index 45.28 ml/m2 [ 16.00 - 34.00 ] MV E/A 1.4 ratio [ 0.8 - 1.5 ] RV Base Dimen 2D 3.5 cm [ 2.5 - 4.2 ] MV Decel Time 183.78 msec [ 104.00 - 258.00 ] TAPSE 2.01 cm [ 1.71 - 5.00 ] Med E` Ulises 3.9 cm/sec [ 8.0 - 25.0 ] RA Volume 65.78 ml Lat E` Ulises 11.1 cm/sec [ 10.0 - 25.0 ] RA Volume Index 42.17 ml/m2 Average E/E` 9.33 IVC Diam 1.94 cm MR Peak Ulises 5.0 m/s AoR Diam 2D 4.91 cm [ 2.70 - 3.70 ] MR Peak PG 100.00 mmHg Ao Root Index 3.15 cm/m2 [ 1.00 - 2.00 ] MV Alias Ulises 0 m/s Asc Ao Diam 2D 4.61 cm MR VTI 197.4 cm Asc Ao Index 2.96 cm/m2 MR Flow 0.00 ml/sec MR PISA 0.6 MR EROA 0.2 cm2 PISA Regurgitant Volume 39.5 ml RV S` 8.74 cm/sec TR Peak Ulises 2.9 m/s [ 1.0 - 2.8 ] TR Peak PG 33.6 mmHg PV Peak Ulises 1.2 m/s [ 0.4 - 0.8 ] PV Peak PG 5.76 mmHg Electronically Signed By: Lisa Camejo MD 08/08/2024 4:40:33 PM CDT Procedure Note Lisa Camejo MD - 08/08/2024 [facility] Cardiac [place] [address] [place] [address] Transthoracic Echocardiographic Report Patient Name: BRENNEN DIAZ L : 1935 (88y 9m) Gender: F Study Date: 08/08/2024 02:52:22 PM Ht(Inch): 65 Wt(Lb): 117.06 BSA: 1.56 Hospitalist: Adalid Wilson RDCS Location: [id number] Order Provider:MARYAM TERRAZAS Heart Rate: 59 BMI: 19.48 BP: 104 / 48 Ref Provider: MARYAM TERRAZAS PROCEDURES: Echocardiographic Report: Transthoracic complete echo with strain imagingand contrast, 2D, spectral and tissue Doppler, color flow Doppler, M-mode. Additional Procedures: Myocardial strain imaging was performed. Contrast: Contrast Enhancement was Employed: After initial imaging due tosub- optimal quality related to co-morbidity defined by patient's body habitus. 0.8 mlOptison Administered, (2.2 ml wasted). INDICATIONS: New Bradycardia. CONCLUSIONS: 1. Dilated left ventricle. Eccentric LV hypertrophy. Normal leftventricular systolic function. The Ejection Fraction is visually estimated to be 55-60 %. GradeII diastolic dysfunction (elevated mean LA pressure). The average global longitudinalstrain is normal. 2. Normal right ventricular size. Normal right ventricular systolicfunction. 3. Moderately dilated left atrium. 4. Severe Right atrial dilatation. 5. Mild mitral annular calcification. Moderate mitral valveregurgitation. 6. Moderate nodular calcification of the aortic valve leaflets. Mildlyrestricted aortic cusps. Moderate aortic valve regurgitation and what appears to beincomplete coaptation of the aortic valve leaflets. The mean transaortic gradient is 7 mmHg. Theaortic valve area by the continuity equation (using VTI) is 2.48 cm2. Aortic valvedimensionless index is 0.82. 7. Normal tricuspid valve structure. Mild tricuspid regurgitation. 8. 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 Dilation of theaortic root when indexed. Dilation of the ascending aorta when indexed. ATTESTATION: I have personally reviewed and interpreted this study without fellow orresident. - DISCLAIMER: The study images and the final report will be retained in the patientchart by the Echo Laboratory for the legally required time period. This chart constitutesthe legal record of any testing performed. FINDINGS: Left Ventricle: Mildly dilated left ventricle based on 2D measurements.Severely dilated left ventricle based on volume index. Eccentric LV hypertrophy. Normalleft ventricular systolic function. The Ejection Fraction is visually estimated to be 55-60%. Grade II diastolic dysfunction (elevated mean LA pressure). The average globallongitudinal strain is normal. The LV global strain is: -17.5 %. Paradoxical Septal motion. Right Ventricle: Normal right ventricular size. Normal right ventricularsystolic function. Left Atrium: Moderately dilated left atrium. Right Atrium: Severe Right atrial dilatation. Mitral Valve: Mild mitral annular calcification. Moderate mitral valveregurgitation. Aortic Valve: Moderate nodular calcification of the aortic valve leaflets.Mildly restricted aortic cusps. Moderate aortic valve regurgitation and whatappears to be incomplete coaptation of the aortic valve leaflets. The mean transaorticgradient is 7 mmHg. The aortic valve area by the continuity equation (using VTI) is 2.48cm2. Aortic valve dimensionless index is 0.82. Tricuspid Valve: Normal tricuspid valve structure. Mild tricuspidregurgitation. Pulmonic Valve: Normal pulmonic valve structure. Trivial pulmonicregurgitation. No pulmonic valve stenosis present. Pericardium: No pericardial effusion. 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 Dilation of theaortic root when indexed. Dilation of the ascending aorta when indexed. IVC: IVC is normal in size. The IVC was <2.1 cm and collapsibility >50%.(est. RA pressure 0-5 mmHg). MEASUREMENTS: 2D/MM Value Range DopplerValue Range LVIDd 2D 5.28 cm [ 3.80 - 5.20 ] AV Peak Vel1.9 m/s [ 1.0 - 1.7 ] LVIDs 2D 3.90 cm [ 2.20 - 3.50 ] AV Peak PG14.44 mmHg IVSd 2D 0.82 cm [ 0.60 - 0.90 ] AV Mean PG7 mmHg LVPWd 2D 0.77 cm [ 0.60 - 0.90 ] AV VTI43.9 cm LV Thickness Ratio 1.1 LVOT PeakVel 1.4 m/s [ 0.7 - 1.1 ] LV FS 2D 26.22 % [ 27.00 - 45.00 ] LVOT PeakPG 7.84 mmHg LV Mass 2D 152.61 g LVOT MeanPG 5 mmHg LV Mass Index 2D 97.83 g/m2 LVOT VTI35.8 cm RWT 0.29 LVOT Diam1.97 cm EDV Mod BP 161.78 ml [ 46.00 - 106.00 ] BENTLEY VTI2.48 cm2 LV EDV Index 103.71 ml/m2 LVOT/AV VTI0.82 - Dimensionless index (DVI) ESV Mod BP 74.40 ml [ 14.00 - 42.00 ] AI Peak Vel4.7 m/s EF Mod BP 54 % [ 54 - 74 ] AI Peak PG89 mmHg Visually Estimated EF 55-60 % AI DecelTime 2097.60 sec LV GLS -17.5 % [ -25.0 - -18.0 ] AI DecelSlope 2.30 m/s2 LA Length 4C 6.21 cm AI QFY740.30 msec LA Length 2C 6.70 cm MV E PeakVel 0.7 m/s [ 0.6 - 1.3 ] LA Volume BP 70.64 ml MV A PeakVel 0.5 m/s [ 1.0 - 1.2 ] LA Volume Index 45.28 ml/m2 [ 16.00 - 34.00 ] MV E/A1.4 ratio [ 0.8 - 1.5 ] RV Base Dimen 2D 3.5 cm [ 2.5 - 4.2 ] MV DecelTime 183.78 msec [ 104.00 - 258.00] TAPSE 2.01 cm [ 1.71 - 5.00 ] Med E` Vel3.9 cm/sec [ 8.0 - 25.0 ] RA Volume 65.78 ml Lat E` Vel11.1 cm/sec [ 10.0 - 25.0 ] RA Volume Index 42.17 ml/m2 AverageE/E` 9.33 IVC Diam 1.94 cm MR Peak Vel5.0 m/s AoR Diam 2D 4.91 cm [ 2.70 - 3.70 ] MR Peak PG100.00 mmHg Ao Root Index 3.15 cm/m2 [ 1.00 - 2.00 ] MV AliasVel 0 m/s Asc Ao Diam 2D 4.61 cm MR VTR105.4 cm Asc Ao Index 2.96 cm/m2 MR Flow0.00 ml/sec MR PISA 0.6 MR EROA 0.2 cm2 PISA Regurgitant Volume 39.5 ml RV S` 8.74 cm/sec TR Peak Ulises 2.9 m/s [ 1.0 - 2.8] TR Peak PG 33.6 mmHg PV Peak Ulises 1.2 m/s [ 0.4 - 0.8] PV Peak PG 5.76 mmHg Electronically Signed By: Lisa Camejo MD 08/08/2024 4:40:33 PM CDT Maryam Hernandezminjacky DO CV ECHO PROCEDURES Final Result * LEARNING TECHNOLOGIST Evaluate and Treat Clinical Swallow (08/08/2024 9:57 AM CDT) Narrative Hubert Montoya, LEARNING TECHNOLOGIST - 08/08/2024 9:57 AM CDT Hubert Montoya, LEARNING TECHNOLOGIST 08/08/2024 11:07 AM Speech-Language Pathology: Clinical Bedside Swallow HPI/PMH 88F w/ PMH paroxysmal afib on amiodarone, Parkinson's disease with dementia, hypothyroidism, and trigeminal neuralgia (?) presenting from OSH for bradycardia. Respiratory/Intubation Status: RA CXR 08/07: Mild bibasilar atelectasis. Stable opacity at the medial right costophrenic angle. There is no pleural effusion or pneumothorax. Precautions: fall, seizure Current Diet Order: mechanical soft / thin liquids Baseline Diet: soft diet / thin liquids General Information Brennen Tesfaye Marianojoygeorgie 08/08/24 General Observations: Pt awake laying in bed, is [place], cooperative throughout exam. Pain Score: 0 - No pain If pain >4, was RN notified? No Patient Stated Goal/Comments: pt did not state any ST related goals Clinical Impression & Professional Recommendations Diet Solids Recommendation: Mechanical soft (baseline diet per Pt report) Diet Liquids Recommendations: Thin/regular Recommended Form of Medications: As tolerated Postural Recommendations: Upright Specialty Instructions: good oral care Dysphagia Diagnosis: Within Functional Limits Overall Clinical Impression/Additional Information: Pt alert and conversant, requires repetition of instruction due to [employer] [place]. Reports she is tried this morning. Oral mechanism exam WFL. Pt fed self ice chips, sips of water, bites of puree and hard solids. Slow mastication, no remarkable oral residue. No overt s/s of aspiration across several PO trials. No further LEARNING TECHNOLOGIST indicated. Assessment Details & Results Consistencies Administered: Ice chips, Thin liquids, Purees, Solids MASA: Shea Assessment of Swallowing Ability (MASA) Alertness: Alert Cooperation: Cooperative Auditory Comprehension: No abnormality detected Respiration: Chest clear Respiratory Rate (for swallow): Able to control breath rate for swallow Aphasia: No abnormality detected Apraxia: No abnormality detected Dysarthria: No abnormality detected Saliva: No abnormality detected Lip Seal: No abnormality detected Tongue Movement: Full range of motion Tongue Strength: No abnormality detected Tongue Coordination: No abnormality detected Gag: No gag (did not assess) Palate: No abnormality detected Cough Reflex: No deficit noted Voluntary Cough: No abnormality detected Voice: No abnormality detected Trach: No trach Oral Preparation: No deficits noted Bolus Clearance: Fully cleared Oral Transit: No deficits noted Pharyngeal Phase: Immediate laryngeal elevation Pharyngeal Response: No deficits noted MASA Score: 196 Dysphagia: No dysphagia detected (178-200) Aspiration Risk: No aspiration risk (170-200) Plan LEARNING TECHNOLOGIST Frequency of Services during current admission: One-time visit (Discharge from this service) LEARNING TECHNOLOGIST Recommendation (Add'l Services): No further LEARNING TECHNOLOGIST indicated Next Visit Plan:No further ST warranted Additional Referrals: n/a Please reference care plan for treatment goals, if indicated. Discharge Summary Statement If this is the last swallow therapy visit, this serves as the discharge summary. Maryam Carbajalo DO LEARNING TECHNOLOGIST ORDERABLES Fin al Result * eGFR (08/08/2024 5:29 AM CDT) eGFR 73 >=60 mL/min/1. 73 m2 Comment: Interpretive Data Reference Interval Normal >/= 90 mL/min/1.73m2 Mildly decreased* 60 - 89 mL/min/1.73m2 Mildly to moderately decreased 45 - 59 mL/min/1.73m2 Moderately to severely decreased 30 - 44 mL/min/1.73m2 Severely decreased 15 - 29 mL/min/1.73m2 Kidney Failure < 15 mL/min/1.73m2 *Relative to young adult level Estimated glomerular filtration rate is determined by the 2020 CKD-EPI equation recommended by the National Kid[employer] (A Unifying Approach to GFR Estimation: Recommendations of the NKF-ASK Task Force on Reassessing the Inclusion of Race in Diagnosing Kidney Disease, JASN 2020). The CKD-EPI equation should not be used for patients with unstable renal function and has not been validated in children and those over 70. Current interpretive data was last reviewed 2021. Blood 08/08/2024 5:29 AM CDT 08/08/2024 6:02 AM CDT us Maryam Riggsacomino DO LAB BLOOD ORDERABLE S Final Result [facility] Department [place] [address] * (ABNORMAL) Differential, auto (08/08/2024 5:29 AM CDT) Neutrophil abs 9.4(H) 1.5 - 6.5 K/cumm Imm gran abs 0.1 0.0 - 0.1 K/cumm [facility] Lymphocyte abs 0.9 0.8 - 3.3 K/cumm [facility] Monocyte abs 0.7 0.2 - 0.8 K/cumm [facility] Eosinophil abs 0.0 0.0 - 0.5 K/cumm [facility] Basophil abs 0.0 0.0 - 0.1 K/cumm [facility] Neutrophil pct 84.2 % [facility] Comment: Interpretive Data Percent cell count reference ranges are not reported, since discordance with absolute values may lead to misinterpretation of CBC data. Current Interpretive Data was last revised on 2017. Imm gran pct 0.6 % [facility] Comment: Interpretive Data Percent cell count reference ranges are not reported, since discordance with absolute values may lead to misinterpretation of CBC data. Current Interpretive Data was last revised on 2017. Lymphocyte pct 8.0 % [facility] Comment: Interpretive Data Percent cell count reference ranges are not reported, since discordance with absolute values may lead to misinterpretation of CBC data. Current Interpretive Data was last revised on 2017. Monocyte pct 6.6 % [facility] Comment: Interpretive Data Percent cell count reference ranges are not reported, since discordance with absolute values may lead to misinterpretation of CBC data. Current Interpretive Data was last revised on 2017. Eosinophil pct 0.3 % [facility] Comment: Interpretive Data Percent cell count reference ranges are not reported, since discordance with absolute values may lead to misinterpretation of CBC data. Current Interpretive Data was last revised on 2017. Basophil pct 0.3 % [facility] Comment: Interpretive Data Percent cell count reference ranges are not reported, since discordance with absolute values may lead to misinterpretation of CBC data. Current Interpretive Data was last revised on 2017. Blood 08/08/2024 5:29 AM CDT 08/08/2024 6:02 AM CDT us Maryam Terrazas DO LAB BLOOD ORDERABLE S Final Result [facility] Department [place] [address] * (ABNORMAL) CBC with auto differential (08/08/2024 5:29 AM CDT) WBC 11.2(H) 3.8 - 9.9 K/cumm Hgb 9.3(L) 11.9 - 15.5 g/dL [facility] Hct 29.8(L) 35.6 - 45.5 % [facility] Plt 312 150 - 400 K/cumm [facility] MPV 9.6 9.1 - 12.3 fL [facility] RBC 4.45 3.90 - 5.20 M/cumm [facility] MCV 67.0(L) 81.3 - 96.4 fL [facility] MCH 20.9(L) 27.1 - 33.3 pg [facility] MCHC 31.2(L) 32.3 - 35.7 g/dL [facility] RDW CV 18.8(H) 11.1 - 14.9 % [facility] RDW SD 44.1 35.7 - 48.1 fL [facility] NRBC abs 0.00 0.00 - 0.01 K/cumm [facility] Blood 08/08/2024 5:29 AM CDT 08/08/2024 6:02 AM CDT us Maryam Terrazas DO LAB BLOOD ORDERABLE S Final Result [facility] Department [place] [address] * (ABNORMAL) Manual Differential (08/08/2024 5:29 AM CDT) Differential Auto RBC morphology Present(A) [facility] Hypochromasia 3-7/HPF(A) [facility] Anisocytosis Slight(A) [facility] Poikilocytosis Marked(A) [facility] Platelet estimate Adequate [facility] Blood 08/08/2024 5:29 AM CDT 08/08/2024 6:05 AM CDT us Maryam Shermanski Giacomino DO LAB BLOOD ORDERABLE S Final Result [facility] [place] [address] * Magnesium (08/08/2024 5:29 AM CDT) Pathologist [facility] Magnesium 2.2 1.4 - 2.5 mg/dL Blood 08/08/2024 5:29 AM CDT 08/08/2024 6:02 AM CDT Maryam Rizoi Giacomino DO LAB BLOOD ORDERABLE S Final Result Performing Organization Address City/[facility]/ZIP Co de Phone Number [facility] [place] [address] * (ABNORMAL) Hepatic function panel (08/08/2024 5:29 AM CDT) Bilirubin, total 1.0 0.1 - 1.2 mg/dL Bilirubin, direct 0.3 0.1 - 0.3 mg/dL [facility] Protein, pl 6.3(L) 6.5 - 8.5 g/dL [facility] Albumin 3.7 3.5 - 5.0 g/dL [facility] Alk phos 101 40 - 130 Units/L [facility] ALT 7 7 - 45 Units/L [facility] AST 28 10 - 45 Units/L [facility] Blood 08/08/2024 5:29 AM CDT 08/08/2024 6:02 AM CDT Maryam Shermanski Giacomino DO LAB BLOOD ORDERABLE S Final Result [facility] Department [place] [address] * Basic metabolic panel (08/08/2024 5:29 AM CDT) Sodium 144 135 - 145 mmol/L Potassium, pl 4.1 3.3 - 4.9 mmol/L [facility] Chloride 107 97 - 110 mmol/L [facility] CO2 29 22 - 32 mmol/L [facility] Anion gap 8 2 - 15 mmol/L [facility] BUN 19 6 - 25 mg/dL [facility] Creatinine 0.78 0.60 - 1.10 mg/dL [facility] Glucose 77 70 - 199 mg/dL [facility] Comment: Interpretive Data Fasting glucose >/= 126 mg/dl is diagnostic for diabetes. Fasting is defined as no caloric intake for at least 8 hours. Fasting glucose between 100 mg/dl to 125 mg/dl is diagnostic of prediabetes. In a patient with classic symptoms of hyperglycemia or hyperglycemic crisis, a random glucose >/= 200 mg/dl is diagnostic for diabetes. In the absence of unequivocal hyperglycemia, results should be confirmed by repeat testing. The classification and Diagnosis of Diabetes Diabetes Care 2021; 46: S19-S40. Current interpretive data was last revised 2022. Calcium 9.0 8.5 - 10.3 mg/dL [facility] Blood 08/08/2024 5:29 AM CDT 08/08/2024 6:02 AM CDT us Maryam Terrazas DO LAB BLOOD ORDERABLE S Final Result [facility] Department [place] [address] * XR Chest 1 View (08/07/2024 12:30 PM CDT) Anatomical Region Laterality Modality Body, Chest N/A Digital Radiogra phy 08/07/2024 2:39 PM CDT Impressions 08/07/2024 3:05 PM CDT The current study is compared with the prior radiograph dated 08/06/2024 The cardiomediastinal silhouette is stable, with mild enlargement of the cardiac silhouette that partially obscures the left lower lung. Mild bibasilar atelectasis. Stable opacity at the medial right costophrenic angle. There is no pleural effusion or pneumothorax. Dictated by: Mart Mcgee M.D. The radiology attending physician has personally reviewed this study, and had reviewed and/or edited this written report and agrees with it. Electronically signed by: Shruti Garay M.D. Narrative 08/07/2024 3:05 PM CDT EXAMINATION: 1 view chest radiograph Procedure Note Shruti Garay MD - 08/07/2024 EXAMINATION: 1 view chest radiograph IMPRESSION: The current study is compared with the prior radiograph dated 08/06/2024 The cardiomediastinal silhouette is stable, with mild enlargement of the cardiac silhouette that partially obscures the left lower lung. Mild bibasilar atelectasis. Stable opacity at the medial right costophrenic angle. There is no pleural effusion or pneumothorax. Dictated by: Mart Mcgee M.D. The radiology attending physician has personally reviewed this study, and had reviewed and/or edited this written report and agrees with it. Electronically signed by: Shruti Garay M.D. Maryam Terrazas DO IMG XR PROCEDURES F inal Result * eGFR (08/07/2024 5:25 AM CDT) eGFR 68 >=60 mL/min/1. 73 m2 Comment: Interpretive Data Reference Interval Normal >/= 90 mL/min/1.73m2 Mildly decreased* 60 - 89 mL/min/1.73m2 Mildly to moderately decreased 45 - 59 mL/min/1.73m2 Moderately to severely decreased 30 - 44 mL/min/1.73m2 Severely decreased 15 - 29 mL/min/1.73m2 Kidney Failure < 15 mL/min/1.73m2 *Relative to young adult level Estimated glomerular filtration rate is determined by the 2020 CKD-EPI equation recommended by the National Kidney Foundation (A Unifying Approach to GFR Estimation: Recommendations of the NKF-ASK Task Force on Reassessing the Inclusion of Race in Diagnosing Kidney Disease, JASN 2020). The CKD-EPI equation should not be used for patients with unstable renal function and has not been validated in children and those over 70. Current interpretive data was last reviewed 2021. Blood 08/07/2024 5:25 AM CDT 08/07/2024 5:54 AM CDT us Maryam Terrazas DO LAB BLOOD ORDERABLE S Final Result [facility] [place] [address] * (ABNORMAL) Differential, auto (08/07/2024 5:25 AM CDT) Neutrophil abs 5.2 1.5 - 6.5 K/cumm Imm gran abs 0.0 0.0 - 0.1 K/cumm [facility] Lymphocyte abs 0.6(L) 0.8 - 3.3 K/cumm [facility] Monocyte abs 0.5 0.2 - 0.8 K/cumm [facility] Eosinophil abs 0.1 0.0 - 0.5 K/cumm [facility] Basophil abs 0.0 0.0 - 0.1 K/cumm [facility] Neutrophil pct 80.5 % [facility] Comment: Interpretive Data Percent cell count reference ranges are not reported, since discordance with absolute values may lead to misinterpretation of CBC data. Current Interpretive Data was last revised on 2017. Imm gran pct 0.5 % [facility] Comment: Interpretive Data Percent cell count reference ranges are not reported, since discordance with absolute values may lead to misinterpretation of CBC data. Current Interpretive Data was last revised on 2017. Lymphocyte pct 9.7 % [facility] Comment: Interpretive Data Percent cell count reference ranges are not reported, since discordance with absolute values may lead to misinterpretation of CBC data. Current Interpretive Data was last revised on 2017. Monocyte pct 7.1 % [facility] Comment: Interpretive Data Percent cell count reference ranges are not reported, since discordance with absolute values may lead to misinterpretation of CBC data. Current Interpretive Data was last revised on 2017. Eosinophil pct 1.9 % [facility] Comment: Interpretive Data Percent cell count reference ranges are not reported, since discordance with absolute values may lead to misinterpretation of CBC data. Current Interpretive Data was last revised on 2017. Basophil pct 0.3 % [facility] Comment: Interpretive Data Percent cell count reference ranges are not reported, since discordance with absolute values may lead to misinterpretation of CBC data. Current Interpretive Data was last revised on 2017. Blood 08/07/2024 5:25 AM CDT 08/07/2024 5:49 AM CDT Maryam Terrazas DO LAB BLOOD ORDERABLE S Final Result [facility] [place] [address] * Respiratory pathogen panel Nasopharyngeal (08/07/2024 5:25 AM CDT) Pathologist [facility] Influenza A RNA Not Detected Not Detected Influenza B RNA Not Detected Not Detected [facility] RSV RNA Not Detected Not Detected [facility] COVID-19 RNA Not Detected Not Detected [facility] Coronavirus 229E RNA Not Detected Not Detected [facility] Coronavirus HKU1 RNA Not Detected Not Detected [facility] Coronavirus NL63 RNA Not Detected Not Detected [facility] Coronavirus OC43 RNA Not Detected Not Detected [facility] Adenovirus DNA Not Detected Not Detected [facility] Metapneumovirus RNA Not Detected Not Detected [facility] Rhinovirus/Enterov irus RNA Not Detected Not Detected [facility] Parainfluenza 1 RNA Not Detected Not Detected [facility] Parainfluenza 2 RNA Not Detected Not Detected [facility] Parainfluenza 3 RNA Not Detected Not Detected [facility] Parainfluenza 4 RNA Not Detected Not Detected [facility] B. pertussis DNA Not Detected Not Detected [facility] B. parapertussis DNA Not Detected Not Detected [facility] C. pneumoniae DNA Not Detected Not Detected [facility] M. pneumoniae DNA Not Detected Not Detected [facility] Nasopharyngeal 08/07/2024 5: 25 AM CDT 08/07/2024 12:49 PM CDT Narrative MARYLU BREWER - 08/07/2024 2:25 PM CDT Is the Patient experiencing symptoms consistent with COVID?->Yes Surveillance testing for transplant patient?->No Interpretive Data The [employer] FilmArray Respiratory Panel (RP2.1) assay is a multiplexed real-time PCR based nucleic acid test capable of simultaneous qualitative detection and identification of multiple respiratory viral and bacterial nucleic acids, including SARS Coronavirus 2 (the causative agent of COVID-19). The following bacteria, viruses and virus subtypes can be identified using the FilmArray RP2.1 assay: Bordetella pertussis, Bordetella parapertussis, Chlamydia pneumoniae, Mycoplasma pneumoniae, Adenovirus, SARS Coronavirus 2, seasonal coronaviruses (Coronavirus HKU1, Coronavirus NL63, Coronavirus 229E, and Coronavirus OC43), Influenza A, Influenza A subtype H1, Influenza A subtype H3, Influenza A subtype 2009 H1, Influenza B, Metapneumovirus, Parainfluenza 1, Parainfluenza 2, Parainfluenza 3, Parainfluenza 4, RSV, Rhinovirus/Enterovirus. Due to the genetic similarity between human Rhinovirus and Enterovirus, the FilmArray RP2.1 assay cannot reliably differentiate them. Coronavirus OC43 may cross-react with some isolates of Coronavirus HKU1. A dual positive result may be due to cross-reactivity or may indicate a co- infection. The detection and identification of specific viral and bacterial nucleic acids from individuals exhibiting signs and symptoms of a respiratory infection aids in the diagnosis of respiratory infection if used in conjunction with other clinical and epidemiological information. The results of this test should not be used as the sole basis for diagnosis, treatment, or other management decisions. Negative results in the setting of a respiratory illness may be due to infection with pathogens that are not detected by this test. Positive results do not rule out infection/co-infection with other organisms. The agent(s) detected by the FilmArray RP2.1 may not be the definite cause of disease. Additional testing (lab, imaging, etc.) may be necessary when evaluating a patient with possible respiratory tract infection. The JanalakshmiArray RP2.1 assay has FDA clearance for testing of [employer] swabs. The performance of additional specimen types has been assessed by the performing laboratory. The performance characteristics of this assay have been determined by [facility] Molecular Infectious Disease Laboratory. Current interpretive data was last revised on 22. Maryam Aegis Identity Softwareguerda MaxPreps DO LAB MICROBIOLOGY - GENERAL ORDERABLES Final Result Performing Organization Address City/[facility]/ZIP Co de Phone Number [facility] Department [place] [address] * (ABNORMAL) CBC with auto differential (08/07/2024 5:25 AM CDT) WBC 6.5 3.8 - 9.9 K/cumm Hgb 9.1(L) 11.9 - 15.5 g/dL [facility] Hct 29.1(L) 35.6 - 45.5 % [facility] Plt 321 150 - 400 K/cumm [facility] MPV 9.6 9.1 - 12.3 fL [facility] RBC 4.32 3.90 - 5.20 M/cumm [facility] MCV 67.4(L) 81.3 - 96.4 fL [facility] MCH 21.1(L) 27.1 - 33.3 pg [facility] MCHC 31.3(L) 32.3 - 35.7 g/dL [facility] RDW CV 18.6(H) 11.1 - 14.9 % [facility] RDW SD 44.4 35.7 - 48.1 fL [facility] NRBC abs 0.00 0.00 - 0.01 K/cumm [facility] Blood 08/07/2024 5:25 AM CDT 08/07/2024 5:49 AM CDT Maryam Aegis Identity SoftwarebrennenDaily News Onlinemarjan MaxPreps DO LAB BLOOD ORDERABLE S Final Result Performing Organization Address City/[facility]/ZIP Co de Phone Number [facility] Department [place] [address] * Magnesium (08/07/2024 5:25 AM CDT) [facility] Magnesium 2.2 1.4 - 2.5 mg/dL Blood 08/07/2024 5:25 AM CDT 08/07/2024 5:54 AM CDT [facility] centerCrossMedia[facility] BLOOD ORDER[place] [address] * (ABNORMAL) Hepatic function panel (08/07/2024 5:25 AM CDT) [facility] Bilirubin, total 0.8 0.1 - 1.2 mg/dL Bilirubin, direct 0.3 0.1 - 0.3 mg/dL [facility] Protein, pl 6.4(L) 6.5 - 8.5 g/dL [facility] Albumin 3.8 3.5 - 5.0 g/dL [facility] Alk phos 108 40 - 130 Units/L [facility] ALT 7 7 - 45 Units/L [facility] AST 32 10 - 45 Units/L [facility] Blood 08/07/2024 5:25 AM CDT 08/07/2024 5:54 AM CDT Maryam Aegis Identity Softwarefitchburg general hospitaljhony [facility] Medicalk[facility] memorial health centerTG Therapeutics [facility] BLOOD ORDERABLE S Final Result [facility] [place] [address] * Basic metabolic panel (08/07/2024 5:25 AM CDT) [facility] Sodium 143 135 - 145 mmol/L Potassium, pl 3.7 3.3 - 4.9 mmol/L [facility] Chloride 105 97 - 110 mmol/L [facility] CO2 31 22 - 32 mmol/L [facility] Anion gap 7 2 - 15 mmol/L [facility] BUN 18 6 - 25 mg/dL [facility] Creatinine 0.83 0.60 - 1.10 mg/dL [facility] Glucose 75 70 - 199 mg/dL [facility] Comment: Interpretive Data Fasting glucose >/= 126 mg/dl is diagnostic for diabetes. Fasting is defined as no caloric intake for at least 8 hours. Fasting glucose between 100 mg/dl to 125 mg/dl is diagnostic of prediabetes. In a patient with classic symptoms of hyperglycemia or hyperglycemic crisis, a random glucose >/= 200 mg/dl is diagnostic for diabetes. In the absence of unequivocal hyperglycemia, results should be confirmed by repeat testing. The classification and Diagnosis of Diabetes Diabetes Care 2021; 46: S19-S40. Current interpretive data was last revised 2022. Calcium 8.8 8.5 - 10.3 mg/dL [facility] Blood 08/07/2024 5:25 AM CDT 08/07/2024 5:54 AM CDT us Maryam Castro [employer] MedicalacoCrossMediao DO LAB BLOOD ORDERABLE S Final Result [facility] [place] [address] * (ABNORMAL) Troponin I high-sensitivity (08/06/2024 9:18 PM CDT) Trop I hs 25(H) <=17 ng/L Comment: Interpretive Data For further [facility] Centerbn[facility] resources including the diagnostic algorithm and an aid in interpretation, copy and paste this link: [email or web address] Current Interpretive Data last revised 2019. Blood 08/06/2024 9:18 PM CDT 08/06/2024 9:48 PM CDT us Maryam Aegis Identity Softwareguerda Giacomino DO LAB BLOOD ORDERABLE S Final Result [facility] [place] [address] * XR Chest 1 View (08/06/2024 6:33 PM CDT) Anatomical Region Laterality Modality Body, Chest N/A Computed Radiogr aphy 08/07/2024 8:11 AM CDT Impressions 08/07/2024 8:11 AM CDT No prior radiographs are available for comparison. There is rounded opacity at the right costophrenic angle. PA and lateral view radiograph is recommended, and if mass persists CT is recommended. This can be further evaluated with CT if clinically indicated. Differential includes a pericardial cyst. Lungs are clear. No pleural effusion. No pneumothorax. Heart size is normal. Electronically signed by: Colleen Musa M.D. Narrative 08/07/2024 8:11 AM CDT EXAMINATION: 1 view chest radiograph Procedure Note Colleen Musa MD - 08/07/2024 EXAMINATION: 1 view chest radiograph IMPRESSION: No prior radiographs are available for comparison. There is rounded opacity at the right costophrenic angle. PA and lateral view radiograph is recommended, and if mass persists CT is recommended. This can be further evaluated with CT if clinically indicated. Differential includes a pericardial cyst. Lungs are clear. No pleural effusion. No pneumothorax. Heart size is normal. Electronically signed by: Colleen Musa M.D. Maryam Castro Giacomino DO IMG XR PROCEDURES F inal Result * Lactate (08/06/2024 2:19 PM CDT) Lactate 0.7 0.7 - 2.0 mmol/L Blood 08/06/2024 2:19 PM CDT 08/06/2024 2:53 PM CDT Maryam Castro Giacomino DO LAB BLOOD ORDERABLE S Final Result Performing Organization Address [facility] Co de Phone Number [facility]LU [facility] Department [place] [address] * eGFR (08/06/2024 2:19 PM CDT) eGFR 66 >=60 mL/min/1. 73 m2 Comment: Interpretive Data Reference Interval Normal >/= 90 mL/min/1.73m2 Mildly decreased* 60 - 89 mL/min/1.73m2 Mildly to moderately decreased 45 - 59 mL/min/1.73m2 Moderately to severely decreased 30 - 44 mL/min/1.73m2 Severely decreased 15 - 29 mL/min/1.73m2 Kidney Failure < 15 mL/min/1.73m2 *Relative to young adult level Estimated glomerular filtration rate is determined by the 2020 CKD-EPI equation recommended by the National Kidney Foundation (A Unifying Approach to GFR Estimation: Recommendations of the NKF-ASK Task Force on Reassessing the Inclusion of Race in Diagnosing Kidney Disease, JASN 2020). The CKD-EPI equation should not be used for patients with unstable renal function and has not been validated in children and those over 70. Current interpretive data was last reviewed 2021. Blood 08/06/2024 2:19 PM CDT 08/06/2024 2:42 PM CDT Maryam Terrazas DO LAB BLOOD ORDERABLE S Final Result Performing Organization Address [facility] Co de Phone Number [facility] [place] [address] * (ABNORMAL) Pro B-type natriuretic peptide (08/06/2024 2:19 PM CDT) NT-proBNP 1,334(H) <=450 pg/mL Comment: Interpretive Comments: A. Dyspnea in Acute Care Setting All Ages: < 300 pg/ml, acute heart failure unlikely. < 50 yrs: 300 - 450 pg/ml, further investigation warranted. > 450 pg/ml, acute heart failure likely. 50 - 74 yrs: 300 - 900 pg/ml, further investigation warranted. > 900 pg/ml, acute heart failure likely . > or = 75 yrs: 450 - 1800 pg/ml, further investigation warranted. > 1800 pg/ml, acute heart failure likely. B. Non-acute Setting < 75 yrs < 125 pg/ml, rules out heart failure. > or = 125 pg/ml, further investigation warranted. > or = 75 yrs < 450 pg/ml, rules out heart failure. > or = 450 pg/ml, further investigation warranted. - Knowledge of each individual patient's NT-proBNP range may be more useful than using similar cut-points for every patient. Please note that marked elevations in NT-proBNP levels may be observed in state other than Left Ventricular Congestive Failure, including: acute coronary syndromes, right heart strain/failure (including pulmonary embolism and cor pulmonale), critical illness, renal failure, as well as advanced age. - References: 1. Jennifer MODI et.al. Eur Heart J. 2006:27:330-337. 2. Chelsey RW, Deon RIZZO. J. AM Adriana Cardiol: Cardiovasc Imag. 2009;2: 216- 225. Interpretive Data Last Revised Date: 2018. Blood 08/06/2024 2:19 PM CDT 08/06/2024 2:42 PM CDT us Maryam DuBottlelenski Giacomino DO LAB BLOOD ORDERABLE S Final Result MARYLU [facility] [place] [address] * (ABNORMAL) Thyroid Function Nelson (08/06/2024 2:19 PM CDT) TSH 11.20(H) 0.30 - 4.20 mcIUnit/mL Blood 08/06/2024 2:19 PM CDT 08/06/2024 2:42 PM CDT us Maryam DuBioMedical Technology SolutionsalanPlanar Semiconductor GiacoCrossMediao DO LAB BLOOD ORDERABLE S Final Result [facility] [place] [address] * Calcium, ionized (08/06/2024 2:19 PM CDT) [facility] Calcium, Ionized 4.60 4.50 - 5.10 mg/dL Blood 08/06/2024 2:19 PM CDT 08/06/2024 2:42 PM CDT Maryam Dugolenski Giacomino DO LAB BLOOD ORDERABLE S Final Result [facility] [place] [address] * (ABNORMAL) Iron profile w/ IBC (08/06/2024 2:19 PM CDT) [facility] Iron 82 35 - 145 mcg/dL TIBC 223(L) 250 - 400 mcg/dL [facility] Transferrin saturation 37 20 - 50 % [facility] Blood 08/06/2024 2:19 PM CDT 08/06/2024 2:42 PM CDT Maryam Aegis Identity SoftwarebrennenDaily News Onlineski Giacomino DO LAB BLOOD ORDERABLE S Final Result [facility] [place] [address] * HIV 1/2 Antibody plus p24 Antigen Blood (08/06/2024 2:19 PM CDT) [facility] HIV 1/2 ab + p24 ag Nonreactive Nonreactive Comment:Nonreactive for HIV- 1 antigen and HIV-1/HIV-2 antibodies. No laboratory evidence of HIV infection. If acute HIV infection is suspected, consider testing for HIV-1 RNA. Current interpretive data was last revised on 22. Blood 08/06/2024 2:19 PM CDT 08/06/2024 2:53 PM CDT Maryam Castro Giacomino DO LAB MICROBIOLOGY - GENERAL ORDERABLES Final Result [facility] [place] [address] * (ABNORMAL) Urinalysis reflex to microscopic and culture Urine (08/06/2024 2:19 PM CDT) Color, ur Straw Yellow Clarity, ur Clear Clear [facility] Specific gravity, ur 1.009 1.003 - 1.030 [facility] pH, urine 7.5 [facility] Comment: Interpretive Data U rine pH is affected by diet, medications, systemic acid-base disturbances, and renal tubular function. pH may affect urinary stone formation. For example, urine pH below 6.0 may help reduce the tendency for calcium phosphate stones and pH greater than 6.0 may reduce the tendency for uric acid stone formation. Source: [facility] Current Interpretive Data was last revised on 2017 Protein, ur ql Negative Negative [facility] Glucose, ur ql Negative Negative [facility] Ketones, ur Negative Negative [facility] Bilirubin, ur Negative Negative [facility] Blood, ur 2+(A) Negative [facility] Urobilinogen, ur <2.0 <2.0 mg/dL [facility] Nitrite, ur Negative Negative [facility] Leukocyte esterase, ur Trace(A) Negative [facility] UA reflex comment Reflex to microscopic UA will be performed. [facility] Urine 08/06/2024 2:19 PM CDT 08/06/2024 2:41 PM CDT us Maryam Riggsacominjacky DO LAB MICROBIOLOGY - GENERAL ORDERABLES Final Result Performing Organization Address City/[facility]/ZIP Co de Phone Number [facility] [place] [address] * RPR Blood (08/06/2024 2:19 PM CDT) RPR Nonreactive Nonreactive Blood 08/06/2024 2:19 PM CDT 08/06/2024 2:53 PM CDT [employer] DO LAB MICROBIOLOGY - GENERAL ORDERABLES Final Result Performing Organization Address City/[facility]/ZIP Co de Phone Number MARYLU [facility] [place] [address] * Blood culture Blood (08/06/2024 2:19 PM CDT) Report Final Report: No growth Blood 08/06/2024 2:19 PM CDT 08/06/2024 2:54 PM CDT Narrative MARYLU BREWER - 08/10/2024 4:00 PM CDT From a different site than #1. Collection->Peripheral 1. Blood cultures are incubated for 4 days on a continuously monitored blood culture system. The first report of a negative culture is issued within 24 hours of receipt of the specimen in the laboratory. 2. Positive culture results are reported as soon as they are detected. 3. The most important factor for detection of microbes in the setting of bloodstream infection is the volume of blood submitted for culture. Failure to collect an optimal blood volume can result in false negative blood cultures. 4. For pediatric patients, the recommended blood volume to collect follows a weight based strategy. See the electronic test catalog for collection instructions. 5. For positive blood cultures, a rapid molecular test may be performed for organism identification using the cori ePlex blood culture identification panel for gram positive (BCID-GP) and gram negative (BCID-GN) organisms. This nucleic acid amplification test detects microbial DNA in positive blood culture broth. This assay has been cleared by the [place] Food and Drug Administration and its performance characteristics have been verified by the [facility] Microbiology Laboratory. For questions about this culture, contact the Microbiology Laboratory at [phone]. Interpretive data was last revised on 24. [employer]ow DO LAB MICROBIOLOGY - GENERAL ORDERABLES Final Result MARYLU BREWER Florentino [facility] [place] [address] * Blood culture Blood (08/06/2024 2:19 PM CDT) Report Final Report: No growth Blood 08/06/2024 2:19 PM CDT 08/06/2024 2:54 PM CDT Indira BREWER - 08/10/2024 4:00 PM CDT Collection->Peripheral 1. Blood cultures are incubated for 4 days on a continuously monitored blood culture system. The first report of a negative culture is issued within 24 hours of receipt of the specimen in the laboratory. 2. Positive culture results are reported as soon as they are detected. 3. The most important factor for detection of microbes in the setting of bloodstream infection is the volume of blood submitted for culture. Failure to collect an optimal blood volume can result in false negative blood cultures. 4. For pediatric patients, the recommended blood volume to collect follows a weight based strategy. See the electronic test catalog for collection instructions. 5. For positive blood cultures, a rapid molecular test may be performed for organism identification using the cori ePlex blood culture identification panel for gram positive (BCID-GP) and gram negative (BCID-GN) organisms. This nucleic acid amplification test detects microbial DNA in positive blood culture broth. This assay has been cleared by the [place] Food and Drug Administration and its performance characteristics have been verified by the [facility] Microbiology Laboratory. For questions about this culture, contact the Microbiology Laboratory at [phone]. Interpretive data was last revised on 24. us Maryam Terrazas DO LAB MICROBIOLOGY - GENERAL ORDERABLES Final Result Performing Organization Address City/[facility]/ZIP Co de Phone Number MARYLU BREWER Florentino [facility] [place] [address] * (ABNORMAL) Urinalysis, microscopic only (08/06/2024 2:19 PM CDT) WBC, ur 0-5 0 - 5 /HPF RBC, ur >50(A) 0 - 2 /HPF [facility] Epithelial cells, squamous, ur 1-5 0 - 5 /HPF [facility] Bacteria, ur 1+(A) [facility] Mucous, ur Present(A) [facility] Hyaline casts, ur 1-5 0 - 10 /LPF [facility] Culture Reflex Comment Reflex conditions for urine culture (WBC >10) not met. [facility] Urine 08/06/2024 2:19 PM CDT 08/06/2024 2:41 PM CDT Maryam [employer] Softwareguerda Hilosofto DO LAB URINE ORDERABLE S Final Result Performing Organization Address [facility] de Phone Number [facility] [place] [address] * (ABNORMAL) aPTT (08/06/2024 2:19 PM CDT) aPTT 39(H) 28 - 38 sec Comment: Interpretive Data Heparin therapeutic range: 66.0 - 100.0 seconds. Range based on correlation with therapeutic heparin activity range of 0.3 - 0.7 Units/mL. Current interpretive data was last revised on 2023. Blood 08/06/2024 2:19 PM CDT 08/06/2024 2:42 PM CDT us Maryam [employer]is Identity Softwareguerda GiacoCrossMediao DO LAB BLOOD ORDERABLE S Final Result Performing Organization Address [facility] Co de Phone Number [facility] [place] [address] * Protime-INR (08/06/2024 2:19 PM CDT) PT 9.8 9.7 - 13.0 sec INR 0.91 0.90 - 1.20 [facility] Comment: Interpretive data Oral anticoagulant therapeutic ranges: Venous thromboembolism prophylaxis or treatment: 2.0-3.0 CARDIOLOGY Standard range: 2.0-3.0 High-intensity range: 2.5-3.5 Refer to indication-specific guidelines for appropriate target ranges for prosthetic heart valve replacement. Current interpretive data was last revised on 2019. Blood 08/06/2024 2:19 PM CDT 08/06/2024 2:42 PM CDT us Maryam Gloria Giacomino DO LAB BLOOD ORDERABLE S Final Result Performing Organization Address City/[facility]/ZIP Co de Phone Number [facility] [place] [address] * (ABNORMAL) CBC without differential (08/06/2024 2:19 PM CDT) WBC 6.6 3.8 - 9.9 K/cumm Hgb 9.6(L) 11.9 - 15.5 g/dL [facility] Hct 31.0(L) 35.6 - 45.5 % [facility] Plt 333 150 - 400 K/cumm [facility] MPV 9.9 9.1 - 12.3 fL [facility] RBC 4.61 3.90 - 5.20 M/cumm [facility] MCV 67.2(L) 81.3 - 96.4 fL [facility] MCH 20.8(L) 27.1 - 33.3 pg [facility] MCHC 31.0(L) 32.3 - 35.7 g/dL [facility] RDW CV 19.1(H) 11.1 - 14.9 % [facility] RDW SD 44.2 35.7 - 48.1 fL [facility] NRBC abs 0.00 0.00 - 0.01 K/cumm [facility] Blood 08/06/2024 2:19 PM CDT 08/06/2024 2:53 PM CDT us Maryam Castro Giacomino DO LAB BLOOD ORDERABLE S Final Result Performing Organization Address City/[facility]/ZIP Co de Phone Number [facility] [place] [address] * Type and screen (08/06/2024 2:19 PM CDT) Tatiana, indirect Negative ABO Rh O Positive [facility] Blood 08/06/2024 2:19 PM CDT 08/06/2024 2:43 PM CDT Narrative [facility] - 08/06/2024 3:37 PM CDT Has the patient had Daratumumab or Isatuximab in the past 6 months?->Unknown us Maryam Terrazas DO LAB BLOOD BANK TEST ORDERABLES Final Result [facility] [place] [address] * Infection Prevention MRSA Only (Staphylococcus aureus) Culture Nasal (08/06/2024 2:19 PM CDT) Report Final Report: Negative Nasal 08/06/2024 2:19 PM CDT 08/06/2024 10:24 PM CDT Narrative [facility] - 08/08/2024 1:37 AM CDT Testing performed by [facility] ([phone]). us Maryam Terrazas DO LAB MICROBIOLOGY - GENERAL ORDERABLES Final Result [facility] [place] [address] * T4, free (08/06/2024 2:19 PM CDT) Free T4 1.21 0.90 - 1.70 ng/dL Blood 08/06/2024 2:19 PM CDT 08/06/2024 2:42 PM CDT us Maryam Dugolenski Giacomino DO LAB BLOOD [place] [address] * Phosphorus (08/06/2024 2:19 PM CDT) Phosphorus, pl 3.1 2.3 - 4.5 mg/dL Blood 08/06/2024 2:19 PM CDT 08/06/2024 2:42 PM CDT us Maryam Shermanski Giacomino DO LAB BLOOD ORDERABLE S Final Result Performing Organization Address [facility]/[place] [address] * Magnesium (08/06/2024 2:19 PM CDT) Magnesium 2.3 1.4 - 2.5 mg/dL Blood 08/06/2024 2:19 PM CDT 08/06/2024 2:42 PM CDT us Maryam Shermanski Giacomino DO LAB BLOOD ORDERABLE S Final Result Performing Organization Address City/[facility]/ZIP Co de Phone Number [facility] [place] [address] * Lactate dehydrogenase (LD) (08/06/2024 2:19 PM CDT) Lactate dehydrogenase (LDH) 238 100 - 250 Units/L Blood 08/06/2024 2:19 PM CDT 08/06/2024 2:42 PM CDT us Maryam Dubrennenlenski Giacomino DO LAB BLOOD ORDERABLE S Final Result [facility] [place] [address] * Hemoglobin A1c (08/06/2024 2:19 PM CDT) Pathologist [facility] Hgb A1C 5.5 4.0 - 5.6 % Estimated Average Glucose 111 mg/dL [facility] Comment: The ADA recommends reporting an estimated Average Glucose (eAG) with all Hemoglobin A1c results using the equation derived from a study of 507 normal and diabetic adults. Minority populations were underrepresented and children were not included. (Diabetes Care 2020; 43(S1): S66-S76). The eAG is not equivalent to a fasting glucose. Blood 08/06/2024 2:19 PM CDT 08/06/2024 2:53 PM CDT Maryam [employer] Softwarepamellaski GiacoCrossMediao DO LAB BLOOD ORDERABLE S Final Result Performing Organization Address [facility] Co de Phone Number [facility] [place] [address] * Haptoglobin (08/06/2024 2:19 PM CDT) [facility] Haptoglobin 82.0 30.0 - 200.0 mg/dL Blood 08/06/2024 2:19 PM CDT 08/06/2024 2:42 PM CDT Maryam Aegis Identity Softwarealvini [employer] MedicalacoCrossMediao DO LAB BLOOD ORDERABLE S Final Result [facility] [place] [address] * (ABNORMAL) Blood gas, venous (08/06/2024 2:19 PM CDT) [facility] pH, Venous 7.40 7.32 - 7.43 PCO2, Venous 55(H) 40 - 50 mmHg [facility] PO2, Venous 30 mmHg [facility] Comment: Interpretive Data No Reference Range Established Current Interpretive Data was last revised on 2017. HCO3 Venous, Calculated 35(H) 20 - 30 mmol/L [facility] BE, venous 8 mmol/L [facility] Comment: Interpretive Data No Reference Range Established Current Interpretive Data was last revised on 2017. Blood 08/06/2024 2:19 PM CDT 08/06/2024 2:40 PM CDT us Maryam Dugolenski Giacomino DO LAB BLOOD ORDERABLE S Final Result [facility] [place] [address] * (ABNORMAL) Ferritin (08/06/2024 2:19 PM CDT) Ferritin 342(H) 13 - 150 ng/mL Blood 08/06/2024 2:19 PM CDT 08/06/2024 2:42 PM CDT us Maryam Dugolenski Giacomino DO LAB BLOOD ORDERABLE S Final Result Performing Organization Address City/[facility]/ZIP Co de Phone Number [facility] [place] [address] * Vitamin B12 (08/06/2024 2:19 PM CDT) Vitamin B12 584 230 - 1,250 pg/mL Blood 08/06/2024 2:19 PM CDT 08/06/2024 2:42 PM CDT Maryam Dugolenski Giacomino DO LAB BLOOD ORDERABLE S Final Result Performing Organization Address City/[facility] Co de Phone Number [facility] [place] [address] * (ABNORMAL) Cortisol (08/06/2024 2:19 PM CDT) Cortisol 23.0(H) 4.8 - 19.5 mcg/dL Comment: Interpretive Data: Morning hours 6-10 a.m. 4.8 - 19.5 mcg/dL Afternoon hours 4-8 p.m. 2.5 - 11.9 mcg/dL This analyte undergoes marked diurnal variation. Current interpretive data was last revised 23. Blood 08/06/2024 2:19 PM CDT 08/06/2024 2:42 PM CDT [facility] [employer] [facility] Medicalk[facility] centerTG Therapeutics LAB BLOOD ORDERABLE S Final Result Performing Organization Address [facility] Co de Phone Number [facility] [place] [address] * (ABNORMAL) Hepatic function panel (08/06/2024 2:19 PM CDT) Bilirubin, total 0.8 0.1 - 1.2 mg/dL Bilirubin, direct 0.3 0.1 - 0.3 mg/dL [facility] Protein, pl 6.9 6.5 - 8.5 g/dL [facility] Albumin 4.1 3.5 - 5.0 g/dL [facility] Alk phos 118 40 - 130 Units/L [facility] ALT 6(L) 7 - 45 Units/L [facility] AST 34 10 - 45 Units/L [facility] Blood 08/06/2024 2:19 PM CDT 08/06/2024 2:42 PM CDT Maryam TransparentreesacoTG Therapeutics LAB BLOOD ORDERABLE S Final Result [facility] [place] [address] * (ABNORMAL) Lipid panel (08/06/2024 2:19 PM CDT) Cholesterol 215(H) 30 - 199 mg/dL Comment: Interpretive Data Ages < or = 19 years Acceptable: <170 mg/dL Borderline high: 170-199 mg/dL High: >or= 200 mg/dL Ages > or = 20 years Desirable: <200 mg/dL Borderline high: 200-239 mg/dL High: >or= 240 mg/dL Literature References: 1. Expert Panel on Integrated Guidelines for Cardiovascular Health and Risk Reduction in Children and Adolescents. Pediatrics 2011;128:S213 2. NCEP Expert Panel. Circulation 2004;110:227 Current Interpretive Data was last revised on 2018. Triglycerides 57 <=149 mg/dL [facility] Comment: Interpretive Data Ages < or = 9 years Acceptable: <75 mg/dL Borderline high: 75-99 mg/dL High: >or= 100 mg/dL Ages 10 to 20 years Acceptable: <90 mg/dL Borderline high: 90-129 mg/dL High: >or= 130 mg/dL Ages > or = 20 years Desirable: <150 mg/dL Borderline high: 150-199 mg/dL High: 200-499 mg/dL Very high: >or= 499 mg/dL Literature References: 1. Expert Panel on Integrated Guidelines for Cardiovascular Health and Risk Reduction in Children and Adolescents. Pediatrics 2011;128:S213 2. NCEP Expert Panel. Circulation 2004;110:227 Current Interpretive Data was last revised on 2018. HDL 80 >=40 mg/dL [facility] Comment: Interpretive Data Ages < or = 19 years Acceptable: >45 mg/dL Borderline low: 40-45 mg/dL Low: <40 mg/dL Ages > or = 20 years Desirable: >or= 60 mg/dL Low: <40 mg/dL Literature References: 1. Expert Panel on Integrated Guidelines for Cardiovascular Health and Risk Reduction in Children and Adolescents. Pediatrics 2011;128:S213 2. NCEP Expert Panel. Circulation 2004;110:227 Current Interpretive Data was last revised on 2018. LDL, calculated 125 <=129 mg/dL [facility] Comment: Interpretive Data Ages < or = 19 years Acceptable: <110 mg/dL Borderline high: 110-129 mg/dL High: >or= 130 mg/dL Ages > or = 20 years Optimal: <100 mg/dL Near optimal: 100-129 mg/dL Borderline high: 130-159 mg/dL High: >160 mg/dL Calculated using the [place] LDL-C estimating equation. This equation was implemented on 2024. Prior to this date LDL-C was estimated using the Friedewald equation. Literature References: 1. Expert Panel on Integrated Guidelines for Cardiovascular Health and Risk Reduction in Children and Adolescents. Pediatrics 2011;128:S213 2. NCEP Expert Panel. Circulation 2004;110:227 3. Obinna Carroll et al. CHIARA Cardiol. 2019September 12;5(5):540-548. doi: 10.1001/[email or web address] Current Interpretive Data was last revised on 2024. Non-HDL Cholesterol 135 mg/dL [facility] Comment: Interpretive Data Ages < or = 19 years Acceptable: <120 mg/dL Borderline high: 120-144 mg/dL High: >145 mg/dL Ages > or = 20 years When triglycerides are >200 mg/dL, Non-HDL cholesterol is a secondary target of therapy with treatment goals that are 30 mg/dL greater than the LDL cholesterol target. Literature References: 1. Expert Panel on Integrated Guidelines for Cardiovascular Health and Risk Reduction in Children and Adolescents. Pediatrics 2011;128:S213 2. NCEP Expert Panel. Circulation 2004;110:227 Current Interpretive Data was last revised on 2018. Chol/HDL ratio 3 [facility] Blood 08/06/2024 2:19 PM CDT 08/06/2024 2:42 PM CDT us Maryam Terrazas DO LAB BLOOD ORDERABLE S Final Result [facility] [place] [address] * Basic metabolic panel (08/06/2024 2:19 PM CDT) Sodium 145 135 - 145 mmol/L Potassium, pl 4.0 3.3 - 4.9 mmol/L [facility] Chloride 102 97 - 110 mmol/L [facility] CO2 32 22 - 32 mmol/L [facility] Anion gap 11 2 - 15 mmol/L [facility] BUN 19 6 - 25 mg/dL [facility] Creatinine 0.85 0.60 - 1.10 mg/dL [facility] Glucose 96 70 - 199 mg/dL [facility] Comment: Interpretive Data Fasting glucose >/= 126 mg/dl is diagnostic for diabetes. Fasting is defined as no caloric intake for at least 8 hours. Fasting glucose between 100 mg/dl to 125 mg/dl is diagnostic of prediabetes. In a patient with classic symptoms of hyperglycemia or hyperglycemic crisis, a random glucose >/= 200 mg/dl is diagnostic for diabetes. In the absence of unequivocal hyperglycemia, results should be confirmed by repeat testing. The classification and Diagnosis of Diabetes Diabetes Care 2021; 46: S19-S40. Current interpretive data was last revised 2022. Calcium 9.3 8.5 - 10.3 mg/dL [facility] Blood 08/06/2024 2:19 PM CDT 08/06/2024 2:42 PM CDT Mayram Terrazas DO LAB BLOOD ORDERABLE S Final Result [facility] [place] [address] * ECG 12 lead (08/06/2024 2:11 PM CDT) Ventricular Rate EKG/Min 75 BPM [facility] Atrial Rate 75 BPM [facility] WI-Interval (MSEC) 206 ms [facility] QRS-Interval (MSEC) 94 ms [facility] QT-Interval (MSEC) 358 ms [facility] QTc 399 ms [facility] P Olivia 69 degrees [facility] R Olivia -4 degrees [facility] T Olivia 114 degrees [facility] Diagnosis Normal sinus rhythm ST & T wave abnormality, consider lateral ischemia Abnormal ECG No previous ECGs available Confirmed by Mumtaz Corona MD ([id number]) on 08/07/2024 2:36:10 PM [facility] 08/06/2024 2:11 PM CDT 08/07/2024 2:36 PM CDT us Maryam Terrazas DO ECG ORDERABLES Fin al Result [facility] from Last 3 Months Insurance [employer] MEDICARE GOLD [employer] [facility] [employer] MEDICARE GOLD [facility] [employer] MEDICARE GOLD Advance Directives For more information, please contact: [phone] * Full Code (Latest Code Status on File) Date Activated Date Inactivated Comments 08/06/2024 2:04 PM 08/20/2024 6:13 PM Care Teams Central Supply Supervisor Relationship Specialty Start Date End Date Luis Almeida DO PCP - General Internal Medicine 01/06/21
--- OUTSIDE RECORDS SUMMARY | 2024-10-11 13:10 | XMS_ITS ---
Author Organization [facility] Address [address] [place] [address] Care Team Providers Care Crosscutter Rolled Glass Name Role Phone Luis Almeida DO Primary Care Provider [phone] Active Problems Problem Noted Date Diagnosed Date Trigeminal neuralgia 09/26/2024 Paroxysmal A-fib 08/13/2024 Assessment & Plan (08/19/2024 2:34 PM CDT): Diagnosed June 2024. S/p cardioversion per family. Started on eliquis, amiodarone. Eliquis stopped due to severe epistaxis. Amiodarone decreased to 100 by outpatient legal contracts specialist due to bradycardia, now d/c due to [...] 5:50 PM CDT): TSH 11. FT4/FT3 wnl. MANAGER ADULT synthroid Anemia of chronic disease/iron deficiency anemia [...] admitted in ICU has been off since 03008/09/24 Patient started on amiodarone for treatment of afib, due to symptomatic bradycardia/hypotension, was then dose reduced to 100mg qdaily MANAGER ADULT with persistence of symptoms and presentation this [...] OS and was sent to [facility] The path was read as conj [...] baseline per family. A&Ox3. On home carbidopa-levodopa MANAGER ADULT carbidopa-levodopa, mirtazapine Swallow eval: mechanical soft diet Assessment & Plan (06/17/2024 12:44 PM OPTICAL GLASS SAWYER): Mrs. Mckoy was doing well overall. She [...] hydrated Assessment & Plan (06/09/2023 1:32 PM OPTICAL GLASS SAWYER): Mrs. Mckoy presented for a follow up. [...] is scheduled to follow up with her cryptographic technician today post surgical removal of melanoma. Recommendations [...] She was drinking boost. She lived at [facility] in assisted living and her [...] Our office will fax OT/PT orders to [facility] ATTN [place] at [phone] A message will be sent to the [...] management Assessment & Plan (04/28/2021 2:22 PM OPTICAL GLASS SAWYER): Ms. Haven Mckoy is a 85 y.o. [...] encounter. Assessment & Plan (06/17/2020 11:03 AM OPTICAL GLASS SAWYER): Ms. Haven Mckoy is a 84 y.o. female, who presents for follow-up for Parkinson's disease (PD), complicated by low back pain. 1. PD. She is about the same since the last visit. She continues to have awning assembler stiffness and increase in nighttime carbidopa-levodopa CR has not helped. We discussed gabapentin and she was willing to try. - Start gabapentin 100 mg with titration to 3 capsules at bedtime. Titration schedule was given through [employer]. Additional doses changes may be needed. - [...] effects were discussed during the encounter, including awning assembler sedation with gabapentin. Assessment & Plan (12/16/2019 [...] 2 tablets at bedtime to help with awning assembler off. - Continue carbidopa-levodopa 25-100 mg at the current dose. - Establish a regular exercise routine. - She should discuss with PCP about the use of BP medication and the vertigo. Assessment & Plan (03/21/2019 4:34 PM OPTICAL GLASS SAWYER): Ms. Haven Mckoy is a 83 y.o. [...] on diagnostic imaging of breas t 01/06/2014 Current Treatment and Therapy Plans No current plan information found. Past Treatment and Therapy Plans No past plan information found. Lifetime Dose Tracking * Chemical Lifetime Dose Automatic Entry Manual Entr y DLP 1,065 mGycm 1,065 mGycm 0 mGycm
--- OUTSIDE RECORDS SUMMARY | 2024-10-11 13:10 | XMS_ITS | Clinical Summary ---
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 Amiodarone decreased to 100 by outpatient special investigation unit investigator due to bradycardia, now d/c due to [...] 5:50 PM CDT): TSH 11. FT4/FT3 wnl. 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 A&Ox3. On home carbidopa-levodopa ORE WASHER carbidopa-levodopa, mirtazapine Swallow eval: mechanical soft diet Assessment & Plan (06/17/2024 12:44 PM GENERAL OFFICE ASSOCIATE): Mrs. Diaz was doing well overall. She [...] hydrated Assessment & Plan (06/09/2023 1:32 PM GENERAL OFFICE ASSOCIATE): Mrs. Diaz presented for a follow up. [...] is scheduled to follow up with her adolescent specialist today post surgical removal of melanoma. Recommendations [...] She was drinking boost. She lived at [facility] in assisted living and her daughter [...] Our office will fax OT/PT orders to [facility] ATTN Alba at [phone] A message will be sent to the [...] management Assessment & Plan (04/28/2021 2:22 PM GENERAL OFFICE ASSOCIATE): Ms. Brennen Diaz is a 85 y.o. [...] encounter. Assessment & Plan (06/17/2020 11:03 AM GENERAL OFFICE ASSOCIATE): Ms. Brennen Diaz is a 84 y.o. female, who presents for follow-up for Parkinson's disease (PD), complicated by low back pain. 1. PD. She is about the same since the last visit. 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 We discussed gabapentin and she was willing to try. - Start gabapentin 100 mg with titration to 3 capsules at bedtime. Titration schedule was given through [employer]. Additional doses changes may be needed. - [...] effects were discussed during the encounter, including director of early childhood education sedation with gabapentin. Assessment & Plan (12/16/2019 [...] 2 tablets at bedtime to help with director of early childhood education off. - Continue carbidopa-levodopa 25-100 mg at the current dose. - Establish a regular exercise routine. - She should discuss with PCP about the use of BP medication and the vertigo. Assessment & Plan (03/21/2019 4:34 PM GENERAL OFFICE ASSOCIATE): Ms. Brennen Diaz is a 83 y.o. [...] Description 09/26/2024 10:00 AM CDT Office Visit [facility] General Neurology [address] 6th [address] [place] [address] Peggy Suggs PA Trigeminal neuralgia (Primary Dx) 08/06/2024 1:58 PM CDT - 08/20/2024 2:13 PM CDT Hospital Encounter [facility] [address] [place] [address] Maryam Terrazas, DO Mccord, MD Beltran Anderson, MD Marysol Villagran, MD Fabio Sandra Khalid, MD Alhalaseh, Dhara Jules MD Eye pain, left (Primary Dx); Left facial pain Discharge Disposition: Discharge to SNF 08/02/2024 1:15 PM CDT Office Visit [facility] Ophthalmology [address] 1st [place] [address] Joselyn Sequeira MD Eye pain, left (Primary Dx); Malignant melanoma of conjunctiva, left (HCC) 08/02/[address] [facility] Movement Disorders [address] [address] [facility] [address] 7th [place] [address] Racquel Etienne MD 08/01/[address] [facility] Ophthalmology [address] [place] [address] No, Physician Right eye pain; New symptoms/ FYI 07/23/[address] [facility] Movement Disorders [address] [facility] [address] 7th [place] [address] Racquel Etienne MD 07/18/2024 Telephone [facility] Advanced Medicine ([facility]) - [facility] ENT [address] [facility] [address] [facility] 11th [place] [address] [place] [address] Laine Aguilera MS from Last 3 Months Immunizations Immunization Administration Dates Next Due Influenza, Trivalent, High D ose, Split, Preservative Free, Intramuscular 06/14/2017 Surgical History Surgery Date Site/Laterality Comments NE TOTAL ABDOMINAL HYSTERECT W/WO RMVL TUBE OVARY Hysterectomy - (Added by Conv) NE COLECTOMY PARTIAL W/ANASTOMOSIS Partial Colectomy - (Added by TW Conv) APPENDECTOMY TONSILLECTOMY CATARACT EXTRACTION Right Medical History Medical History Date Comments Personal history of other di seases of the nervous system and sense organs History of migraine wi th aura - (Added by Conv) Cataract H/O total knee replacement H/O: hysterectomy Parkinson disease (HCC) Hypertension Cancer (HCC) colon Family History Medical History Relation Name Comments Brain cancer Father Family history of malignant neoplasm of brain - (Added by Conv) Migraines Father Family history of migraine [...] Family history of depression - (Added by Conv) Parkinsonism Neg Hx Tremor Neg Hx [...] on file Legal Sex Female 8:35 PM GENERAL OFFICE ASSOCIATE Gender Identity Female 01/25/2022 6:38 PM CDT [...] 09/26/2024 10:06 AM CDT Plan of Treatment Health Maintenance Due Date Last Done Comments DTaP/Tdap/Td Vaccine (1 - Tdap) 10/24/1946 Hepatitis B Screening 1953 Pneumococcal vaccine 65+ (1 of 1 - PCV) 1986 Zoster Vaccine (1 of 2) 1986 Well Visit 65+ 2001 Depression Screening 12/07/2024 12/08/2023 Influenza Vaccine (Season Ended) 2025 06/14/19 18 Fall Risk Assessment 08/20/2025 08/20/2024 Procedures Procedure Name Priority Date/Time Associated Diagnosis [...] ED Urgent/IP Urgent 08/08/2024 4:30 PM CDT CLINIC CLERK EVALUATE AND TREAT CLINICAL SWALLOW Routine 08/08/2024 [...] Results * eGFR (08/18/2024 4:31 AM CDT) [facility] eGFR 68 >=60 mL/min/1. 73 m2 Comment: [...] MD LAB BLOOD ORDERABLES Final Res ult [facility] [address] [facility] Department [place] [address] * (ABNORMAL) Differential, auto (08/18/2024 4:31 AM CDT) Neutrophil abs 4.08 1.50 - 6.50 K/cumm Imm gran abs 0.12(H) 0.00 - 0.10 K/cumm [facility] Lymphocyte abs 1.67 0.80 - 3.30 K/cumm [facility] Monocyte abs 0.60 0.20 - 0.80 K/cumm [facility] Eosinophil abs 0.26 0.00 - 0.50 K/cumm [facility] Basophil abs 0.05 0.00 - 0.10 K/cumm [facility] Neutrophil pct 60.3 % [facility] Comment: Interpretive Data Percent cell count reference ranges are not reported, since discordance with absolute values may lead to misinterpretation of CBC data. Current Interpretive Data was last revised on 2017. Imm gran pct 1.8 % [facility] Comment: Interpretive Data Percent cell count reference ranges are not reported, since discordance with absolute values may lead to misinterpretation of CBC data. Current Interpretive Data was last revised on 2017. Lymphocyte pct 24.6 % [facility] Comment: Interpretive Data Percent cell count reference ranges are not reported, since discordance with absolute values may lead to misinterpretation of CBC data. Current Interpretive Data was last revised on 2017. Monocyte pct 8.8 % [facility] Comment: Interpretive Data Percent cell count reference ranges are not reported, since discordance with absolute values may lead to misinterpretation of CBC data. Current Interpretive Data was last revised on 2017. Eosinophil pct 3.8 % [facility] Comment: Interpretive Data Percent cell count reference ranges are not reported, since discordance with absolute values may lead to misinterpretation of CBC data. Current Interpretive Data was last revised on 2017. Basophil pct 0.7 % [facility] Comment: Interpretive Data Percent cell count reference ranges are not reported, since discordance with absolute values may lead to misinterpretation of CBC data. Current Interpretive Data was last revised on 2017. Blood 08/18/2024 4:31 AM CDT 08/18/2024 5:29 AM CDT Rocio Mccarthy MD LAB BLOOD ORDERABLES Final Res ult [facility] [address] [facility] Department [place] [address] * (ABNORMAL) CBC with auto differential (08/18/2024 4:31 AM CDT) WBC 6.78 3.80 - 9.90 K/cumm Hgb 7.8(L) 11.9 - 15.5 g/dL [facility] Hct 24.7(L) 35.6 - 45.5 % [facility] Plt 427(H) 150 - 400 K/cumm [facility] MPV 9.3 9.1 - 12.3 fL [facility] RBC 3.67(L) 3.90 - 5.20 M/cumm [facility] MCV 67.3(L) 81.3 - 96.4 fL [facility] MCH 21.3(L) 27.1 - 33.3 pg [facility] MCHC 31.6(L) 32.3 - 35.7 g/dL [facility] RDW CV 18.5(H) 11.1 - 14.9 % [facility] RDW SD 43.8 35.7 - 48.1 fL [facility] NRBC abs 0.00 0.00 - 0.01 K/cumm [facility] Blood 08/18/2024 4:31 AM CDT 08/18/2024 5:29 AM CDT Rocio Mccarthy MD LAB BLOOD ORDERABLES Final Res ult [facility] Department [place] [address] * (ABNORMAL) Basic metabolic panel (08/18/2024 4:31 AM CDT) Sodium 140 135 - 145 mmol/L Potassium, pl 4.9 3.3 - 4.9 mmol/L [facility] Chloride 105 97 - 110 mmol/L [facility] CO2 28 22 - 32 mmol/L [facility] Anion gap 7 2 - 15 mmol/L [facility] BUN 33(H) 6 - 25 mg/dL [facility] Creatinine 0.83 0.60 - 1.10 mg/dL [facility] Glucose 103 70 - 199 mg/dL [facility] Comment: Interpretive Data Fasting glucose >/= 126 [...] 2022. Calcium 9.0 8.5 - 10.3 mg/dL [facility] Blood 08/18/2024 4:31 AM CDT 08/18/2024 5:29 AM CDT us Rocio Mccarthy MD LAB BLOOD ORDERABLES Final Res ult Performing Organization Address City/[facility]/ZIP Co de Phone Number [facility] Department [place] [address] * eGFR (08/17/2024 4:41 AM CDT) eGFR [...] MD LAB BLOOD ORDERABLES Final Res ult [facility] Department [place] [address] * (ABNORMAL) Differential, auto (08/17/2024 4:41 AM CDT) Neutrophil abs 4.12 1.50 - 6.50 K/cumm Imm gran abs 0.16(H) 0.00 - 0.10 K/cumm [facility] Lymphocyte abs 1.98 0.80 - 3.30 K/cumm [facility] Monocyte abs 0.61 0.20 - 0.80 K/cumm [facility] Eosinophil abs 0.22 0.00 - 0.50 K/cumm [facility] Basophil abs 0.06 0.00 - 0.10 K/cumm [facility] Neutrophil pct 57.7 % [facility] Comment: Interpretive Data Percent cell count reference ranges are not reported, since discordance with absolute values may lead to misinterpretation of CBC data. Current Interpretive Data was last revised on 2017. Imm gran pct 2.2 % [facility] Comment: Interpretive Data Percent cell count reference ranges are not reported, since discordance with absolute values may lead to misinterpretation of CBC data. Current Interpretive Data was last revised on 2017. Lymphocyte pct 27.7 % [facility] Comment: Interpretive Data Percent cell count reference ranges are not reported, since discordance with absolute values may lead to misinterpretation of CBC data. Current Interpretive Data was last revised on 2017. Monocyte pct 8.5 % [facility] Comment: Interpretive Data Percent cell count reference ranges are not reported, since discordance with absolute values may lead to misinterpretation of CBC data. Current Interpretive Data was last revised on 2017. Eosinophil pct 3.1 % [facility] Comment: Interpretive Data Percent cell count reference ranges are not reported, since discordance with absolute values may lead to misinterpretation of CBC data. Current Interpretive Data was last revised on 2017. Basophil pct 0.8 % [facility] Comment: Interpretive Data Percent cell count reference ranges are not reported, since discordance with absolute values may lead to misinterpretation of CBC data. Current Interpretive Data was last revised on 2017. Blood 08/17/2024 4:41 AM CDT 08/17/2024 5:33 AM CDT Rocio Mccarthy MD LAB BLOOD ORDERABLES Final Res ult [facility] [address] [facility] Department [place] [address] * (ABNORMAL) CBC with auto differential (08/17/2024 4:41 AM CDT) WBC 7.15 3.80 - 9.90 K/cumm Hgb 7.9(L) 11.9 - 15.5 g/dL [facility] Hct 25.3(L) 35.6 - 45.5 % [facility] Plt 419(H) 150 - 400 K/cumm [facility] MPV 9.5 9.1 - 12.3 fL [facility] RBC 3.75(L) 3.90 - 5.20 M/cumm [facility] MCV 67.5(L) 81.3 - 96.4 fL [facility] MCH 21.1(L) 27.1 - 33.3 pg [facility] MCHC 31.2(L) 32.3 - 35.7 g/dL [facility] RDW CV 18.5(H) 11.1 - 14.9 % [facility] RDW SD 43.8 35.7 - 48.1 fL [facility] NRBC abs 0.00 0.00 - 0.01 K/cumm [facility] Blood 08/17/2024 4:41 AM CDT 08/17/2024 5:33 AM CDT Rocio Mccarthy MD LAB BLOOD ORDERABLES Final Res ult [facility] [address] [facility] Department [place] [address] * (ABNORMAL) Basic metabolic panel (08/17/2024 4:41 AM CDT) Sodium 139 135 - 145 mmol/L Potassium, pl 5.0(H) 3.3 - 4.9 mmol/L [facility] Chloride 106 97 - 110 mmol/L [facility] CO2 28 22 - 32 mmol/L [facility] Anion gap 5 2 - 15 mmol/L [facility] BUN 38(H) 6 - 25 mg/dL [facility] Creatinine 0.78 0.60 - 1.10 mg/dL [facility] Glucose 80 70 - 199 mg/dL [facility] Comment: Interpretive Data Fasting glucose >/= 126 [...] 2022. Calcium 8.7 8.5 - 10.3 mg/dL [facility] Blood 08/17/2024 4:41 AM CDT 08/17/2024 6:12 AM CDT us Rocio Mccarthy MD LAB BLOOD ORDERABLES Final Res ult [facility] [address] [facility] Department [place] [address] * eGFR (08/16/2024 3:57 AM CDT) eGFR 65 >=60 mL/min/1. 73 m2 Comment: [...] of Race in Diagnosing Kidney Disease, JASN 2021). The CKD-EPI equation should not be used for patients with unstable renal function and has not been validated in children and those over 70. Current interpretive data was last reviewed 2021. Blood 08/16/2024 3:57 AM CDT 08/16/2024 4:55 AM CDT Rocio Mccarthy MD LAB BLOOD ORDERABLES Final Res ult [facility] [address] [facility] Department [place] [address] * (ABNORMAL) Differential, auto (08/16/2024 3:57 AM CDT) Neutrophil abs 4.08 1.50 - 6.50 K/cumm Imm gran abs 0.19(H) 0.00 - 0.10 K/cumm [facility] Lymphocyte abs 1.86 0.80 - 3.30 K/cumm [facility] Monocyte abs 0.73 0.20 - 0.80 K/cumm [facility] Eosinophil abs 0.22 0.00 - 0.50 K/cumm [facility] Basophil abs 0.04 0.00 - 0.10 K/cumm [facility] Neutrophil pct 57.2 % [facility] Comment: Interpretive Data Percent cell count reference ranges are not reported, since discordance with absolute values may lead to misinterpretation of CBC data. Current Interpretive Data was last revised on 2017. Imm gran pct 2.7 % [facility] Comment: Interpretive Data Percent cell count reference ranges are not reported, since discordance with absolute values may lead to misinterpretation of CBC data. Current Interpretive Data was last revised on 2017. Lymphocyte pct 26.1 % [facility] Comment: Interpretive Data Percent cell count reference ranges are not reported, since discordance with absolute values may lead to misinterpretation of CBC data. Current Interpretive Data was last revised on 2017. Monocyte pct 10.3 % [facility] Comment: Interpretive Data Percent cell count reference ranges are not reported, since discordance with absolute values may lead to misinterpretation of CBC data. Current Interpretive Data was last revised on 2017. Eosinophil pct 3.1 % [facility] Comment: Interpretive Data Percent cell count reference ranges are not reported, since discordance with absolute values may lead to misinterpretation of CBC data. Current Interpretive Data was last revised on 2017. Basophil pct 0.6 % [facility] Comment: Interpretive Data Percent cell count reference ranges are not reported, since discordance with absolute values may lead to misinterpretation of CBC data. Current Interpretive Data was last revised on 2017. Blood 08/16/2024 3:57 AM CDT 08/16/2024 4:56 AM CDT Rocio Mccarthy MD LAB BLOOD ORDERABLES Final Res ult [facility] [address] [facility] Department [place] [address] * (ABNORMAL) CBC with auto differential (08/16/2024 3:57 AM CDT) WBC 7.12 3.80 - 9.90 K/cumm Hgb 8.2(L) 11.9 - 15.5 g/dL [facility] Hct 26.5(L) 35.6 - 45.5 % [facility] Plt 431(H) 150 - 400 K/cumm [facility] MPV 10.0 9.1 - 12.3 fL [facility] RBC 3.91 3.90 - 5.20 M/cumm [facility] MCV 67.8(L) 81.3 - 96.4 fL [facility] MCH 21.0(L) 27.1 - 33.3 pg [facility] MCHC 30.9(L) 32.3 - 35.7 g/dL [facility] RDW CV 18.8(H) 11.1 - 14.9 % [facility] RDW SD 44.3 35.7 - 48.1 fL [facility] NRBC abs 0.00 0.00 - 0.01 K/cumm [facility] Blood 08/16/2024 3:57 AM CDT 08/16/2024 4:56 AM CDT Rocio Mccarthy MD LAB BLOOD ORDERABLES Final Res ult Performing Organization Address City/[facility]/ZIP Co de Phone Number [facility] [place] [address] * (ABNORMAL) Basic metabolic panel (08/16/2024 3:57 AM CDT) [facility] Sodium 142 135 - 145 mmol/L Potassium, pl 5.3(H) 3.3 - 4.9 mmol/L [facility] Chloride 109 97 - 110 mmol/L [facility] CO2 29 22 - 32 mmol/L [facility] Anion gap 4 2 - 15 mmol/L [facility] BUN 34(H) 6 - 25 mg/dL [facility] Creatinine 0.86 0.60 - 1.10 mg/dL [facility] Glucose 94 70 - 199 mg/dL [facility] Comment: Interpretive Data Fasting glucose >/= 126 [...] 2022. Calcium 8.9 8.5 - 10.3 mg/dL [facility] Blood 08/16/2024 3:57 AM CDT 08/16/2024 4:55 AM CDT Rocio Mccarthy MD LAB BLOOD ORDERABLES Final Res ult Performing Organization Address [facility]/ZIP Co de Phone Number [facility] [place] [address] * eGFR (08/15/2024 4:14 AM CDT) eGFR [...] MD LAB BLOOD ORDERABLES Final Res ult [facility] Department [place] [address] * (ABNORMAL) Differential, auto (08/15/2024 4:14 AM CDT) Pathologist [facility] Neutrophil abs 4.84 1.50 - 6.50 K/cumm Imm gran abs 0.17(H) 0.00 - 0.10 K/cumm [facility] Lymphocyte abs 1.67 0.80 - 3.30 K/cumm [facility] Monocyte abs 0.81(H) 0.20 - 0.80 K/cumm [facility] Eosinophil abs 0.25 0.00 - 0.50 K/cumm [facility] Basophil abs 0.05 0.00 - 0.10 K/cumm [facility] Neutrophil pct 62.2 % [facility] Comment: Interpretive Data Percent cell count reference ranges are not reported, since discordance with absolute values may lead to misinterpretation of CBC data. Current Interpretive Data was last revised on 2017. Imm gran pct 2.2 % [facility] Comment: Interpretive Data Percent cell count reference ranges are not reported, since discordance with absolute values may lead to misinterpretation of CBC data. Current Interpretive Data was last revised on 2017. Lymphocyte pct 21.4 % [facility] Comment: Interpretive Data Percent cell count reference ranges are not reported, since discordance with absolute values may lead to misinterpretation of CBC data. Current Interpretive Data was last revised on 2017. Monocyte pct 10.4 % [facility] Comment: Interpretive Data Percent cell count reference ranges are not reported, since discordance with absolute values may lead to misinterpretation of CBC data. Current Interpretive Data was last revised on 2017. Eosinophil pct 3.2 % [facility] Comment: Interpretive Data Percent cell count reference ranges are not reported, since discordance with absolute values may lead to misinterpretation of CBC data. Current Interpretive Data was last revised on 2017. Basophil pct 0.6 % [facility] Comment: Interpretive Data Percent cell count reference ranges are not reported, since discordance with absolute values may lead to misinterpretation of CBC data. Current Interpretive Data was last revised on 2017. Blood 08/15/2024 4:14 AM CDT 08/15/2024 4:53 AM CDT us Rocio Mccarthy MD LAB BLOOD ORDERABLES Final Res ult [facility] Department [place] [address] * (ABNORMAL) CBC with auto differential (08/15/2024 4:14 AM CDT) WBC 7.79 3.80 - 9.90 K/cumm Hgb 8.2(L) 11.9 - 15.5 g/dL [facility] Hct 25.5(L) 35.6 - 45.5 % [facility] Plt 369 150 - 400 K/cumm [facility] MPV 9.9 9.1 - 12.3 fL [facility] RBC 3.82(L) 3.90 - 5.20 M/cumm [facility] MCV 66.8(L) 81.3 - 96.4 fL [facility] MCH 21.5(L) 27.1 - 33.3 pg [facility] MCHC 32.2(L) 32.3 - 35.7 g/dL [facility] RDW CV 18.7(H) 11.1 - 14.9 % [facility] RDW SD 43.8 35.7 - 48.1 fL [facility] NRBC abs 0.00 0.00 - 0.01 K/cumm [facility] Blood 08/15/2024 4:14 AM CDT 08/15/2024 4:53 AM CDT Rocio Mccarthy MD LAB BLOOD ORDERABLES Final Res ult [facility] Department [place] [address] * (ABNORMAL) Basic metabolic panel (08/15/2024 4:14 AM CDT) Sodium 140 135 - 145 mmol/L Potassium, pl 4.8 3.3 - 4.9 mmol/L [facility] Chloride 108 97 - 110 mmol/L [facility] CO2 28 22 - 32 mmol/L [facility] Anion gap 4 2 - 15 mmol/L [facility] BUN 30(H) 6 - 25 mg/dL [facility] Creatinine 0.71 0.60 - 1.10 mg/dL [facility] Glucose 84 70 - 199 mg/dL [facility] Comment: Interpretive Data Fasting glucose >/= 126 [...] 2022. Calcium 8.7 8.5 - 10.3 mg/dL [facility] Blood 08/15/2024 4:14 AM CDT 08/15/2024 4:53 AM CDT us Rocio Mccarthy MD LAB BLOOD ORDERABLES Final Res ult Performing Organization Address [facility]/ZIP Co de Phone Number [facility] Department [place] [address] * eGFR (08/13/2024 9:03 PM CDT) eGFR [...] MD LAB BLOOD ORDERABLES Final Re sult [facility] [place] [address] * (ABNORMAL) Differential, auto (08/13/2024 9:03 PM CDT) Neutrophil abs 7.71(H) 1.50 - 6.50 K/cumm Imm gran abs 0.14(H) 0.00 - 0.10 K/cumm [facility] Lymphocyte abs 0.99 0.80 - 3.30 K/cumm [facility] Monocyte abs 1.07(H) 0.20 - 0.80 K/cumm [facility] Eosinophil abs 0.32 0.00 - 0.50 K/cumm [facility] Basophil abs 0.07 0.00 - 0.10 K/cumm [facility] Neutrophil pct 74.8 % [facility] Comment: Interpretive Data Percent cell count reference ranges are not reported, since discordance with absolute values may lead to misinterpretation of CBC data. Current Interpretive Data was last revised on 2017. Imm gran pct 1.4 % [facility] Comment: Interpretive Data Percent cell count reference ranges are not reported, since discordance with absolute values may lead to misinterpretation of CBC data. Current Interpretive Data was last revised on 2017. Lymphocyte pct 9.6 % [facility] Comment: Interpretive Data Percent cell count reference ranges are not reported, since discordance with absolute values may lead to misinterpretation of CBC data. Current Interpretive Data was last revised on 2017. Monocyte pct 10.4 % [facility] [place] Comment: Interpretive Data Percent cell count reference ranges are not reported, since discordance with absolute values may lead to misinterpretation of CBC data. Current Interpretive Data was last revised on 2017. Eosinophil pct 3.1 % [facility] [place] Comment: Interpretive Data Percent cell count reference ranges are not reported, since discordance with absolute values may lead to misinterpretation of CBC data. Current Interpretive Data was last revised on 2017. Basophil pct 0.7 % [facility] [place] Comment: Interpretive Data Percent cell count reference ranges are not reported, since discordance with absolute values may lead to misinterpretation of CBC data. Current Interpretive Data was last revised on 2017. Blood 08/13/2024 9:03 PM CDT 08/13/2024 10:19 PM CDT Bing Gong MD LAB BLOOD ORDERABLES Final Re sult Performing Organization Address [facility] Co de Phone Number [facility] Department [place] [address] * (ABNORMAL) CBC with auto differential (08/13/2024 9:03 PM CDT) WBC 10.30(H) 3.80 - 9.90 K/cumm Hgb 7.9(L) 11.9 - 15.5 g/dL [facility] Hct 25.3(L) 35.6 - 45.5 % [facility] Plt 330 150 - 400 K/cumm [facility] MPV 9.6 9.1 - 12.3 fL [facility] RBC 3.73(L) 3.90 - 5.20 M/cumm [facility] MCV 67.8(L) 81.3 - 96.4 fL [facility] MCH 21.2(L) 27.1 - 33.3 pg [facility] MCHC 31.2(L) 32.3 - 35.7 g/dL [facility] RDW CV 18.8(H) 11.1 - 14.9 % [facility] RDW SD 44.5 35.7 - 48.1 fL [facility] NRBC abs 0.00 0.00 - 0.01 K/cumm [facility] Blood 08/13/2024 9:03 PM CDT 08/13/2024 10:19 PM CDT Bing Gong MD LAB BLOOD ORDERABLES Final Re sult Performing Organization Address [facility]/ZIP Co de Phone Number [facility] Department [place] [address] * (ABNORMAL) Basic metabolic panel (08/13/2024 9:03 PM CDT) Pathologist [facility] Sodium 142 135 - 145 mmol/L Potassium, pl 4.4 3.3 - 4.9 mmol/L [facility] Chloride 108 97 - 110 mmol/L [facility] CO2 26 22 - 32 mmol/L [facility] Anion gap 8 2 - 15 mmol/L [facility] BUN 46(H) 6 - 25 mg/dL [facility] Creatinine 0.88 0.60 - 1.10 mg/dL [facility] Glucose 108 70 - 199 mg/dL [facility] Comment: Interpretive Data Fasting glucose >/= 126 [...] 2022. Calcium 8.4(L) 8.5 - 10.3 mg/dL [facility] Blood 08/13/2024 9:03 PM CDT 08/13/2024 10:19 PM CDT us Bing Gong MD LAB BLOOD ORDERABLES Final Re sult [facility] [place] [address] * (ABNORMAL) eGFR (08/12/2024 8:56 PM CDT) Pathologist [facility] eGFR 40(L) >=60 mL/min/1. 73 m2 Comment: [...] MD LAB BLOOD ORDERABLES Final Re sult [facility] Department [place] [address] * (ABNORMAL) Differential, auto (08/12/2024 8:56 PM CDT) Neutrophil abs 7.3(H) 1.5 - 6.5 K/cumm Imm gran abs 0.1 0.0 - 0.1 K/cumm [facility] Lymphocyte abs 0.9 0.8 - 3.3 K/cumm [facility] Monocyte abs 0.7 0.2 - 0.8 K/cumm [facility] Eosinophil abs 0.3 0.0 - 0.5 K/cumm [facility] Basophil abs 0.1 0.0 - 0.1 K/cumm [facility] Neutrophil pct 78.8 % [facility] Comment: Interpretive Data Percent cell count reference ranges are not reported, since discordance with absolute values may lead to misinterpretation of CBC data. Current Interpretive Data was last revised on 2017. Imm gran pct 1.0 % [facility] Comment: Interpretive Data Percent cell count reference ranges are not reported, since discordance with absolute values may lead to misinterpretation of CBC data. Current Interpretive Data was last revised on 2017. Lymphocyte pct 9.7 % [facility] Comment: Interpretive Data Percent cell count reference ranges are not reported, since discordance with absolute values may lead to misinterpretation of CBC data. Current Interpretive Data was last revised on 2017. Monocyte pct 7.1 % [facility] Comment: Interpretive Data Percent cell count reference ranges are not reported, since discordance with absolute values may lead to misinterpretation of CBC data. Current Interpretive Data was last revised on 2017. Eosinophil pct 2.9 % [facility] Comment: Interpretive Data Percent cell count reference ranges are not reported, since discordance with absolute values may lead to misinterpretation of CBC data. Current Interpretive Data was last revised on 2017. Basophil pct 0.5 % [facility] Comment: Interpretive Data Percent cell count reference ranges are not reported, since discordance with absolute values may lead to misinterpretation of CBC data. Current Interpretive Data was last revised on 2017. Blood 08/12/2024 8:56 PM CDT 08/12/2024 9:59 PM CDT us Bing Gong MD LAB BLOOD ORDERABLES Final Re sult [facility] Department [place] [address] * (ABNORMAL) CBC with auto differential (08/12/2024 8:56 PM CDT) WBC 9.3 3.8 - 9.9 K/cumm Hgb 7.9(L) 11.9 - 15.5 g/dL [facility] Hct 25.3(L) 35.6 - 45.5 % [facility] Plt 314 150 - 400 K/cumm [facility] MPV 10.2 9.1 - 12.3 fL [facility] RBC 3.74(L) 3.90 - 5.20 M/cumm [facility] MCV 67.6(L) 81.3 - 96.4 fL [facility] MCH 21.1(L) 27.1 - 33.3 pg [facility] MCHC 31.2(L) 32.3 - 35.7 g/dL [facility] RDW CV 19.3(H) 11.1 - 14.9 % [facility] RDW SD 44.0 35.7 - 48.1 fL [facility] NRBC abs 0.00 0.00 - 0.01 K/cumm [facility] Blood 08/12/2024 8:56 PM CDT 08/12/2024 9:59 PM CDT us Bing Gong MD LAB BLOOD ORDERABLES Final Re sult [facility] Department [place] [address] * (ABNORMAL) Basic metabolic panel (08/12/2024 8:56 PM CDT) Sodium 137 135 - 145 mmol/L Potassium, pl 4.7 3.3 - 4.9 mmol/L [facility] Comment:Hemolyzed; Potassium value may be falsely elevated by as much as 0.6-1.0 mmol/L. Suggest redraw and reanalysis. Chloride 101 97 - 110 mmol/L [facility] CO2 25 22 - 32 mmol/L [facility] Anion gap 11 2 - 15 mmol/L [facility] BUN 57(H) 6 - 25 mg/dL [facility] Creatinine 1.29(H) 0.60 - 1.10 mg/dL [facility] Glucose 93 70 - 199 mg/dL [facility] Comment: Interpretive Data Fasting glucose >/= 126 [...] 2022. Calcium 8.6 8.5 - 10.3 mg/dL [facility] Blood 08/12/2024 8:56 PM CDT 08/12/2024 9:58 PM CDT Bing Gong MD LAB BLOOD ORDERABLES Final Re sult Performing Organization Address [facility] Co de Phone Number [facility] [place] [address] * (ABNORMAL) eGFR (08/12/2024 12:23 AM CDT) [...] ORDERABLES Final Re sult Performing Organization Address City/[facility]/ZIP Co de Phone Number [facility] Department [place] [address] * (ABNORMAL) Differential, auto (08/12/2024 12:23 AM CDT) Neutrophil abs 8.5(H) 1.5 - 6.5 K/cumm Imm gran abs 0.1 0.0 - 0.1 K/cumm [facility] Lymphocyte abs 0.6(L) 0.8 - 3.3 K/cumm [facility] Monocyte abs 1.0(H) 0.2 - 0.8 K/cumm [facility] Eosinophil abs 0.2 0.0 - 0.5 K/cumm [facility] Basophil abs 0.1 0.0 - 0.1 K/cumm [facility] Neutrophil pct 81.9 % [facility] Comment: Interpretive Data Percent cell count reference ranges are not reported, since discordance with absolute values may lead to misinterpretation of CBC data. Current Interpretive Data was last revised on 2017. Imm gran pct 0.8 % [facility] Comment: Interpretive Data Percent cell count reference ranges are not reported, since discordance with absolute values may lead to misinterpretation of CBC data. Current Interpretive Data was last revised on 2017. Lymphocyte pct 6.0 % [facility] Comment: Interpretive Data Percent cell count reference ranges are not reported, since discordance with absolute values may lead to misinterpretation of CBC data. Current Interpretive Data was last revised on 2017. Monocyte pct 9.2 % [facility] Comment: Interpretive Data Percent cell count reference ranges are not reported, since discordance with absolute values may lead to misinterpretation of CBC data. Current Interpretive Data was last revised on 2017. Eosinophil pct 1.6 % [facility] Comment: Interpretive Data Percent cell count reference ranges are not reported, since discordance with absolute values may lead to misinterpretation of CBC data. Current Interpretive Data was last revised on 2017. Basophil pct 0.5 % [facility] Comment: Interpretive Data Percent cell count reference ranges are not reported, since discordance with absolute values may lead to misinterpretation of CBC data. Current Interpretive Data was last revised on 2017. Blood 08/12/2024 12:2 3 AM CDT 08/12/2024 12:52 AM CDT Bing Gong MD LAB BLOOD ORDERABLES Final Re sult [facility] Department [place] [address] * (ABNORMAL) CBC with auto differential (08/12/2024 12:23 AM CDT) [facility] WBC 10.3(H) 3.8 - 9.9 K/cumm Hgb 8.3(L) 11.9 - 15.5 g/dL [facility] Hct 26.8(L) 35.6 - 45.5 % [facility] Plt 294 150 - 400 K/cumm [facility] MPV 10.0 9.1 - 12.3 fL [facility] RBC 3.98 3.90 - 5.20 M/cumm [facility] MCV 67.3(L) 81.3 - 96.4 fL [facility] MCH 20.9(L) 27.1 - 33.3 pg [facility] MCHC 31.0(L) 32.3 - 35.7 g/dL [facility] RDW CV 18.4(H) 11.1 - 14.9 % [facility] RDW SD 43.4 35.7 - 48.1 fL [facility] NRBC abs 0.00 0.00 - 0.01 K/cumm [facility] Blood 08/12/2024 12:2 3 AM CDT 08/12/2024 12:52 AM CDT Bing Gong MD LAB BLOOD ORDERABLES Final Re sult [facility] Department [place] [address] * (ABNORMAL) Basic metabolic panel (08/12/2024 12:23 AM CDT) [facility] Sodium 139 135 - 145 mmol/L Potassium, pl 4.9 3.3 - 4.9 mmol/L [facility] Chloride 105 97 - 110 mmol/L [facility] CO2 26 22 - 32 mmol/L [facility] Anion gap 8 2 - 15 mmol/L [facility] BUN 57(H) 6 - 25 mg/dL [facility] Creatinine 1.15(H) 0.60 - 1.10 mg/dL [facility] Glucose 117 70 - 199 mg/dL [facility] Comment: Interpretive Data Fasting glucose >/= 126 [...] 2022. Calcium 9.0 8.5 - 10.3 mg/dL [facility] Blood 08/12/2024 12:2 3 AM CDT 08/12/2024 12:52 AM CDT us Bing Gong MD LAB BLOOD ORDERABLES Final Re sult [facility] [place] [address] * CT Facial Bones W WO Contrast [...] Hemoglobin and hematocrit (08/11/2024 9:37 AM CDT) Hgb 8.1(L) 11.9 - 15.5 g/dL Hct 26.4(L) 35.6 - 45.5 % [facility] Blood 08/11/2024 9:37 AM CDT 08/11/2024 10:33 AM CDT Bing Gong MD LAB BLOOD ORDERABLES Final Re sult Performing Organization Address [facility] Co de Phone Number [facility] [place] [address] * Type and screen (08/11/2024 9:37 AM CDT) ABO Rh O Positive Tatiana, indirect Negative [facility] Blood 08/11/2024 9:37 AM CDT 08/11/2024 10:26 AM CDT Narrative [facility] - 08/11/2024 11:38 AM CDT Has the patient had Daratumumab or Isatuximab in the past 6 months?->Unknown Bing Gong MD LAB BLOOD BANK TEST ORDERABLE S Final Result Performing Organization Address [facility] Co de Phone Number [facility] [place] [address] * (ABNORMAL) eGFR (08/11/2024 3:26 AM CDT) eGFR 57(L) >=60 mL/min/1. 73 m2 Comment: [...] MD LAB BLOOD ORDERABLES Final Re sult [facility] Department [place] [address] * Differential, auto (08/11/2024 3:26 AM CDT) Pathologist [facility] Neutrophil abs 3.5 1.5 - 6.5 K/cumm Imm gran abs 0.1 0.0 - 0.1 K/cumm [facility] Lymphocyte abs 1.1 0.8 - 3.3 K/cumm [facility] Monocyte abs 0.6 0.2 - 0.8 K/cumm [facility] Eosinophil abs 0.2 0.0 - 0.5 K/cumm [facility] Basophil abs 0.0 0.0 - 0.1 K/cumm [facility] Neutrophil pct 64.0 % [facility] Comment: Interpretive Data Percent cell count reference ranges are not reported, since discordance with absolute values may lead to misinterpretation of CBC data. Current Interpretive Data was last revised on 2017. Imm gran pct 0.9 % [facility] Comment: Interpretive Data Percent cell count reference ranges are not reported, since discordance with absolute values may lead to misinterpretation of CBC data. Current Interpretive Data was last revised on 2017. Lymphocyte pct 20.4 % [facility] Comment: Interpretive Data Percent cell count reference ranges are not reported, since discordance with absolute values may lead to misinterpretation of CBC data. Current Interpretive Data was last revised on 2017. Monocyte pct 11.1 % [facility] Comment: Interpretive Data Percent cell count reference ranges are not reported, since discordance with absolute values may lead to misinterpretation of CBC data. Current Interpretive Data was last revised on 2017. Eosinophil pct 3.0 % [facility] Comment: Interpretive Data Percent cell count reference ranges are not reported, since discordance with absolute values may lead to misinterpretation of CBC data. Current Interpretive Data was last revised on 2017. Basophil pct 0.6 % [facility] Comment: Interpretive Data Percent cell count reference ranges are not reported, since discordance with absolute values may lead to misinterpretation of CBC data. Current Interpretive Data was last revised on 2017. Blood 08/11/2024 3:26 AM CDT 08/11/2024 4:29 AM CDT us Bing Gong MD LAB BLOOD ORDERABLES Final Re sult [facility] Department [place] [address] * (ABNORMAL) CBC with auto differential (08/11/2024 3:26 AM CDT) WBC 5.4 3.8 - 9.9 K/cumm Hgb 7.6(L) 11.9 - 15.5 g/dL [facility] Hct 24.2(L) 35.6 - 45.5 % [facility] Plt 262 150 - 400 K/cumm [facility] MPV 10.1 9.1 - 12.3 fL [facility] RBC 3.59(L) 3.90 - 5.20 M/cumm [facility] MCV 67.4(L) 81.3 - 96.4 fL [facility] MCH 21.2(L) 27.1 - 33.3 pg [facility] MCHC 31.4(L) 32.3 - 35.7 g/dL [facility] RDW CV 18.1(H) 11.1 - 14.9 % [facility] RDW SD 43.5 35.7 - 48.1 fL [facility] NRBC abs 0.00 0.00 - 0.01 K/cumm [facility] Blood 08/11/2024 3:26 AM CDT 08/11/2024 4:29 AM CDT Bing Gong MD LAB BLOOD ORDERABLES Final Re sult Performing Organization Address [facility] de Phone Number [facility] [place] [address] * (ABNORMAL) Vitamin D 25 hydroxy (08/11/2024 3:26 AM CDT) Pathologist [facility] Vitamin D 25-OH 22(L) 30 - 80 ng/mL Blood 08/11/2024 3:26 AM CDT 08/11/2024 4:29 AM CDT Bing Gong MD LAB BLOOD ORDERABLES Final Re sult Performing Organization Address [facility] de Phone Number [facility] [place] [address] * Vitamin B1 (08/11/2024 3:26 AM CDT) [facility] Thiamine (Vit B1) 92 70 - 180 nmol/L [facility] Comment: ADDITIONAL INFORMATION This test was developed and its performance characteristics determined by [facility] in a manner consistent with CLIA requirements. This test has not been cleared or approved by the U.S. Food and Drug Administration. Test Performed by: [facility] [place] [id number] Pattern Fitter: Karla Egan Ph.D.; CLIA# [id number] Blood 08/11/2024 3:26 AM CDT 08/11/2024 4:19 AM CDT Bing Gong MD LAB BLOOD ORDERABLES Final Re sult Performing Organization Address [facility] de Phone Number [facility] Department [place] [address] [place] ref [facility] * (ABNORMAL) Vitamin B6 (08/11/2024 3:26 AM CDT) [facility] Pyridoxal phosphate (Vit B6) 3(L) 5 - 50 mcg/L [facility] Comment: ADDITIONAL INFORMATION This test was developed and its performance characteristics determined by [facility] in a manner consistent with CLIA requirements. This test has not been cleared or approved by the U.S. Food and Drug Administration. Test Performed by: [place] [address] Pattern Fitter: Karla Egan Ph.D.; CLIA# [id number] Blood 08/11/2024 3:26 AM CDT 08/11/2024 4:19 AM CDT us Bing Gong MD LAB BLOOD ORDERABLES Final Re sult [facility] Department [place] [address] [place] [facility] * (ABNORMAL) Basic metabolic panel (08/11/2024 3:26 AM CDT) [facility] Sodium 140 135 - 145 mmol/L Potassium, pl 4.5 3.3 - 4.9 mmol/L [facility] Chloride 105 97 - 110 mmol/L [facility] CO2 28 22 - 32 mmol/L [facility] Anion gap 7 2 - 15 mmol/L [facility] BUN 39(H) 6 - 25 mg/dL [facility] Creatinine 0.97 0.60 - 1.10 mg/dL [facility] Glucose 88 70 - 199 mg/dL [facility] Comment: Interpretive Data Fasting glucose >/= 126 [...] 2022. Calcium 8.6 8.5 - 10.3 mg/dL [facility] Blood 08/11/2024 3:26 AM CDT 08/11/2024 4:29 AM CDT Bing Gong MD LAB BLOOD ORDERABLES Final Re sult Performing Organization Address [facility] de Phone Number [facility] Department [place] [address] * (ABNORMAL) POCT glucose (08/10/2024 11:31 AM CDT) Glucose, POC 206(H) 70 - 199 mg/dL Blood 08/10/2024 11:3 1 AM CDT 08/10/2024 11:31 AM CDT Bing Gong MD LAB POCT ORDERABLES - DEVICE Final Result Performing Organization Address [facility] de Phone Number [facility] Department [place] [address] * (ABNORMAL) Hemoglobin and hematocrit (08/10/2024 9:46 AM CDT) Hgb 8.4(L) 11.9 - 15.5 g/dL Hct 26.3(L) 35.6 - 45.5 % [facility] Blood 08/10/2024 9:46 AM CDT 08/10/2024 10:21 AM CDT Bing Gong MD LAB BLOOD ORDERABLES Final Re sult Performing Organization Address [facility] Co de Phone Number [facility] [place] Fl[facility] Department [place] [address] * POCT glucose (08/10/2024 7:43 AM CDT) Glucose, POC 99 70 - 199 mg/dL Blood 08/10/2024 7:43 AM CDT 08/10/2024 7:43 AM CDT us Bing Gong MD LAB POCT ORDERABLES - DEVICE Final Result Performing Organization Address [facility] de Phone Number [facility] [place] [address] * eGFR (08/10/2024 3:31 AM CDT) Pathologist [facility] eGFR 71 >=60 mL/min/1. 73 m2 Comment: [...] ORDERABLE S Final Result Performing Organization Address [facility] Co de Phone Number [facility] [place] [facility] Department [place] [address] * (ABNORMAL) Differential, auto (08/10/2024 3:31 AM CDT) Neutrophil abs 6.9(H) 1.5 - 6.5 K/cumm Imm gran abs 0.1 0.0 - 0.1 K/cumm [facility] Lymphocyte abs 1.1 0.8 - 3.3 K/cumm [facility] [place] Monocyte abs 0.9(H) 0.2 - 0.8 K[facility]cumm [facility] [place] Eosinophil abs 0.2 0.0 - 0.5 K/cumm [facility] [place] Basophil abs 0.0 0.0 - 0.1 K/cumm [facility] Neutrophil pct 75.2 % [facility] Comment: Interpretive Data Percent cell count reference ranges are not reported, since discordance with absolute values may lead to misinterpretation of CBC data. Current Interpretive Data was last revised on 2017. Imm gran pct 0.5 % [facility] Comment: Interpretive Data Percent cell count reference ranges are not reported, since discordance with absolute values may lead to misinterpretation of CBC data. Current Interpretive Data was last revised on 2017. Lymphocyte pct 12.4 % [facility] [place] Comment: Interpretive Data Percent cell count reference ranges are not reported, since discordance with absolute values may lead to misinterpretation of CBC data. Current Interpretive Data was last revised on 2017. Monocyte pct 9.8 % [facility] Comment: Interpretive Data Percent cell count reference ranges are not reported, since discordance with absolute values may lead to misinterpretation of CBC data. Current Interpretive Data was last revised on 2017. Eosinophil pct 1.8 % [facility] Comment: Interpretive Data Percent cell count reference ranges are not reported, since discordance with absolute values may lead to misinterpretation of CBC data. Current Interpretive Data was last revised on 2017. Basophil pct 0.3 % [facility] [place] Comment: Interpretive Data Percent cell count reference ranges are not reported, since discordance with absolute values may lead to misinterpretation of CBC data. Current Interpretive Data was last revised on 2017. Blood 08/10/2024 3:31 AM CDT 08/10/2024 4:24 AM CDT Maryam lGoria [employer] [facility] BLOOD ORDERABLE S Final Result Performing Organization Address City/[facility]/ZIP Co de Phone Number [facility] [place] [address] * (ABNORMAL) CBC with auto differential (08/10/2024 3:31 AM CDT) Pathologist [facility] WBC 9.2 3.8 - 9.9 K/cumm Hgb 8.4(L) 11.9 - 15.5 g/dL [facility] Hct 26.5(L) 35.6 - 45.5 % [facility] Plt 278 150 - 400 K/cumm [facility] MPV 10.4 9.1 - 12.3 fL [facility] RBC 3.96 3.90 - 5.20 M/cumm [facility] MCV 66.9(L) 81.3 - 96.4 fL [facility] MCH 21.2(L) 27.1 - 33.3 pg [facility] MCHC 31.7(L) 32.3 - 35.7 g/dL [facility] RDW CV 18.6(H) 11.1 - 14.9 % [facility] RDW SD 43.8 35.7 - 48.1 fL [facility] NRBC abs 0.00 0.00 - 0.01 K/cumm [facility] Blood 08/10/2024 3:31 AM CDT 08/10/2024 4:24 AM CDT Maryam Castro Giacomino DO LAB BLOOD ORDERABLE S Final Result [facility] [place] [address] * Erythrocyte sedimentation rate (08/10/2024 3:31 AM CDT) Erythrocyte sedimentation rate 26 1 - 30 mm/hr Blood 08/10/2024 3:31 AM CDT 08/10/2024 4:28 AM CDT Bing oGng MD LAB BLOOD ORDERABLES Final Re sult Performing Organization Address [facility] Co de Phone Number [facility] [place] [address] * (ABNORMAL) CRP (acute phase) (08/10/2024 3:31 AM CDT) Pathologist [facility] CRP 10.1(H) <=10.0 mg/L Blood 08/10/2024 3:31 AM CDT 08/10/2024 4:24 AM CDT Bing Gong MD LAB BLOOD ORDERABLES Final Re sult Performing Organization Address [facility] Co de Phone Number [facility] [place] [address] * Magnesium (08/10/2024 3:31 AM CDT) [facility] Magnesium 2.3 1.4 - 2.5 mg/dL Blood 08/10/2024 3:31 AM CDT 08/10/2024 4:24 AM CDT Maryam Terrazas DO LAB BLOOD ORDERABLE S Final Result Performing Organization Address [facility] Co de Phone Number [facility] [place] [address] * (ABNORMAL) Hepatic function panel (08/10/2024 3:31 AM CDT) Pathologist [facility] Bilirubin, total 0.8 0.1 - 1.2 mg/dL Bilirubin, direct 0.3 0.1 - 0.3 mg/dL [facility] Protein, pl 5.7(L) 6.5 - 8.5 g/dL [facility] Albumin 3.3(L) 3.5 - 5.0 g/dL [facility] Alk phos 85 40 - 130 Units/L [facility] ALT 5(L) 7 - 45 Units/L [facility] AST 16 10 - 45 Units/L [facility] Blood 08/10/2024 3:31 AM CDT 08/10/2024 4:24 AM CDT us Maryam Terrazas DO LAB BLOOD ORDERABLE S Final Result [facility] Department [place] [address] * (ABNORMAL) Basic metabolic panel (08/10/2024 3:31 AM CDT) Sodium 142 135 - 145 mmol/L Potassium, pl 4.3 3.3 - 4.9 mmol/L [facility] Chloride 106 97 - 110 mmol/L [facility] CO2 29 22 - 32 mmol/L [facility] Anion gap 7 2 - 15 mmol/L [facility] BUN 28(H) 6 - 25 mg/dL [facility] Creatinine 0.80 0.60 - 1.10 mg/dL [facility] Glucose 76 70 - 199 mg/dL [facility] Comment: Interpretive Data Fasting glucose >/= 126 [...] 2022. Calcium 9.0 8.5 - 10.3 mg/dL [facility] Blood 08/10/2024 3:31 AM CDT 08/10/2024 4:24 AM CDT us Maryam Terrazas DO LAB BLOOD ORDERABLE S Final Result Performing Organization Address [facility] Co de Phone Number [facility] [place] [address] * POCT glucose (08/09/2024 7:56 PM CDT) Glucose, POC 188 70 - 199 mg/dL Blood 08/09/2024 7:56 PM CDT 08/09/2024 7:56 PM CDT us Ramila Mccord MD LAB POCT ORDERABLES - DEVICE Final Result Performing Organization Address [facility] Co de Phone Number [facility] [place] [address] * POCT glucose (08/09/2024 5:01 PM CDT) Glucose, POC 145 70 - 199 mg/dL Blood 08/09/2024 5:01 PM CDT 08/09/2024 5:01 PM CDT us Ramila Mccord MD LAB POCT ORDERABLES - DEVICE Final Result Performing Organization Address [facility] Co de Phone Number [facility] [place] [address] * POCT glucose (08/09/2024 12:05 PM CDT) Glucose, POC 120 70 - 199 mg/dL Blood 08/09/2024 12:0 5 PM CDT 08/09/2024 12:05 PM CDT us Maryam Terrazas DO LAB POCT ORDERABLES - DEVICE Final Result MARYLU BREWER Florentino [facility] Department [place] [address] * POCT glucose (08/09/2024 7:45 AM CDT) Glucose, POC 127 70 - 199 mg/dL Blood 08/09/2024 7:45 AM CDT 08/09/2024 7:45 AM CDT us Maryam Dubrennenlenski Giacomino DO LAB POCT ORDERABLES - DEVICE Final Result Performing Organization Address [facility] de Phone Number MARYLU [facility] [place] [address] * eGFR (08/09/2024 6:23 AM CDT) Pathologist [facility] eGFR 72 >=60 mL/min/1. 73 m2 Comment: [...] CDT 08/09/2024 6:47 AM CDT us Maryam Dugolenski Giacomino DO LAB BLOOD ORDERABLE S Final Result MARYLU [facility] Department [place] [address] * (ABNORMAL) Differential, auto (08/09/2024 6:23 AM CDT) Neutrophil abs 4.7 1.5 - 6.5 K/cumm Imm gran abs 0.1 0.0 - 0.1 K/cumm [facility] Lymphocyte abs 0.7(L) 0.8 - 3.3 K/cumm [facility] Monocyte abs 0.4 0.2 - 0.8 K/cumm [facility] Eosinophil abs 0.1 0.0 - 0.5 K/cumm [facility] Basophil abs 0.0 0.0 - 0.1 [facility] Neutrophil pct 79.5 % [facility] Comment: Interpretive Data Percent cell count reference ranges are not reported, since discordance with absolute values may lead to misinterpretation of CBC data. Current Interpretive Data was last revised on 2017. Imm gran pct 0.8 % [facility] Comment: Interpretive Data Percent cell count reference ranges are not reported, since discordance with absolute values may lead to misinterpretation of CBC data. Current Interpretive Data was last revised on 2017. Lymphocyte pct 12.0 % [facility] Comment: Interpretive Data Percent cell count reference ranges are not reported, since discordance with absolute values may lead to misinterpretation of CBC data. Current Interpretive Data was last revised on 2017. Monocyte pct 6.6 % [facility] Comment: Interpretive Data Percent cell count reference ranges are not reported, since discordance with absolute values may lead to misinterpretation of CBC data. Current Interpretive Data was last revised on 2017. Eosinophil pct 0.8 % [facility] Comment: Interpretive Data Percent cell count reference ranges are not reported, since discordance with absolute values may lead to misinterpretation of CBC data. Current Interpretive Data was last revised on 2017. Basophil pct 0.3 % [facility] Comment: Interpretive Data Percent cell count reference ranges are not reported, since discordance with absolute values may lead to misinterpretation of CBC data. Current Interpretive Data was last revised on 2017. Blood 08/09/2024 6:23 AM CDT 08/09/2024 6:48 AM CDT Maryam Castro Giacomino DO LAB BLOOD ORDERABLE S Final Result Performing Organization Address City/[facility]/ZIP Co de Phone Number [facility] [place] [address] * (ABNORMAL) CBC with auto differential (08/09/2024 6:23 AM CDT) Pathologist [facility] WBC 5.9 3.8 - 9.9 K/cumm Hgb 9.6(L) 11.9 - 15.5 g/dL [facility] Hct 29.8(L) 35.6 - 45.5 % [facility] Plt 310 150 - 400 K/cumm [facility] MPV 9.3 9.1 - 12.3 fL [facility] RBC 4.46 3.90 - 5.20 M/cumm [facility] MCV 66.8(L) 81.3 - 96.4 fL [facility] MCH 21.5(L) 27.1 - 33.3 pg [facility] MCHC 32.2(L) 32.3 - 35.7 g/dL [facility] RDW CV 18.9(H) 11.1 - 14.9 % [facility] RDW SD 43.5 35.7 - 48.1 fL [facility] NRBC abs 0.00 0.00 - 0.01 K/cumm [facility] Blood 08/09/2024 6:23 AM CDT 08/09/2024 6:48 AM CDT Maryam Castro Giacomino DO LAB BLOOD ORDERABLE S Final Result [facility] [place] [address] * Magnesium (08/09/2024 6:23 AM CDT) [facility] Magnesium 2.3 1.4 - 2.5 mg/dL Blood 08/09/2024 6:23 AM CDT 08/09/2024 6:[address] [facility] BLOOD ORDERABLE S Final Result Performing Organization Address City/[facility] Co de Phone Number [facility] Department [place] [address] * Hepatic function panel (08/09/2024 6:23 AM CDT) [facility] Bilirubin, total 1.0 0.1 - 1.2 mg/dL Bilirubin, direct 0.3 0.1 - 0.3 mg/dL [facility] Protein, pl 6.9 6.5 - 8.5 g/dL [facility] Albumin 3.5 3.5 - 5.0 g/dL [facility] Alk phos 106 40 - 130 Units/L [facility] ALT 12 7 - 45 Units/L [facility] AST 30 10 - 45 Units/L [facility] Blood 08/09/2024 6:23 AM CDT 08/09/2024 6:47 AM CDT Maryam Castro [facility] BLOOD ORDERABLE S Final Result [facility] Department [place] [address] * Basic metabolic panel (08/09/2024 6:23 AM CDT) [facility] Sodium 145 135 - 145 mmol/L Potassium, pl 4.5 3.3 - 4.9 mmol/L [facility] Chloride 106 97 - 110 mmol/L [facility] CO2 28 22 - 32 mmol/L [facility] Anion gap 11 2 - 15 mmol/L [facility] BUN 24 6 - 25 mg/dL [facility] Creatinine 0.79 0.60 - 1.10 mg/dL [facility] Glucose 114 70 - 199 mg/dL [facility] Comment: Interpretive Data Fasting glucose >/= 126 [...] 2022. Calcium 9.6 8.5 - 10.3 mg/dL [facility] Blood 08/09/2024 6:23 AM CDT 08/09/2024 6:47 AM CDT us Maryam Terrazas DO LAB BLOOD ORDERABLE S Final Result [facility] Department [place] [address] * MRI Brain Incl Orbits WO Contrast [...] by: Andria Rayo MD Maryam Terrazas DO IMG MRI PROCEDURES Final Result * POCT glucose (08/08/2024 8:04 PM CDT) Glucose, POC 120 70 - 199 mg/dL Blood 08/08/2024 8:04 PM CDT 08/08/2024 8:04 PM CDT us Maryam Terrazas DO LAB POCT ORDERABLES - DEVICE Final Result MARYLU [facility] Department [place] [address] * POCT glucose (08/08/2024 6:36 PM CDT) Glucose, POC 142 70 - 199 mg/dL Blood 08/08/2024 6:36 PM CDT 08/08/2024 6:36 PM CDT Maryam Terrazas DO LAB POCT ORDERABLES - DEVICE Final Result MARYLU FRASER One [facility] [place] [address] * Neuro CT Outside Consult (08/08/2024 5:21 PM CDT) Anatomical Region Laterality Modality N/A Computed Tomogra phy 08/08/2024 6:47 PM CDT Impressions 08/08/2024 7:00 PM CDT 1. No acute intracranial abnormality. 2. [id number]-ig-[id number] degree of senescent white matter changes. 3. [...] images may or may not represent the qawalangin source data set and thus may contain [...] IMAGING STUDY STUDY INITIALLY PERFORMED: 08/06/2024 at [facility]. TYPE OF STUDY: Multiple CT images of [...] IMAGING STUDY STUDY INITIALLY PERFORMED: 08/06/2024 at [facility]. TYPE OF STUDY: Multiple CT images of [...] IMPRESSION: 1. No acute intracranial abnormality. 2. Bfjb-fk-rpmhpuwk degree of senescent white matter changes. 3. [...] images may or may not represent the qawalangin source data set and thus may contain changes that may lower the accuracy of this second-opinion interpretation. Dictated by: Jesus Hoyt MD The radiology attending physician has personally reviewed this study, and had reviewed and/or edited this written report and agrees with it. Electronically signed by: Milagro Lee M.D. Bill Leblanc MD IMKarissa CT PROCEDURES Final Re sult * TRANSTHORACIC ECHO (TTE) COMPLETE W DOPPLER/CF W CONTRAST (08/08/2024 4:30 PM CDT) LV EF 55-60 % CONS SCIMAGE Anatomical Region Laterality Modality Ultrasound 08/08/2024 2:52 PM CDT Narrative 08/08/2024 4:40 PM CDT [facility] [place] [address] Transthoracic Echocardiographic Report Patient Name: BRENNEN DIAZ L : 1935 (88y 9m) Gender: F Study Date: 08/08/2024 02:52:22 PM Ht(Inch): 65 Wt(Lb): 117.06 BSA: 1.56 Debt Management Counselor: Adalid Wilson RDCS Location: [id number] Order Provider: MARYAM TERRAZAS Heart Rate: 59 [...] [ -25.0 - -18.0 ] AI Decel [place] 2.30 m/s2 LA Length 4C 6.21 cm [...] Procedure Note Lisa Camejo MD - 08/08/2024 [facility] [place] [address] Transthoracic Echocardiographic Report Patient Name: BRENNEN DIAZ L : 1935 (88y 9m) Gender: F Study Date: 08/08/2024 02:52:22 PM Ht(Inch): 65 Wt(Lb): 117.06 BSA: 1.56 Debt Management Counselor: Adalid Wilson RDCS Location: [id number] Order Provider:MARYAM TERRAZAS Heart Rate: 59 BMI: [...] m/s2 LA Length 4C 6.21 cm AI ZIR251.30 msec LA Length 2C 6.70 cm MV [...] Asc Ao Diam 2D 4.61 cm MR PAR573.4 cm Asc Ao Index 2.96 cm/m2 MR [...] Camejo MD 08/08/2024 4:40:33 PM CDT Maryam Terrazas DO CV ECHO PROCEDURES Final Result * CLINIC CLERK Evaluate and Treat Clinical Swallow (08/08/2024 9:57 AM CDT) Narrative Hubert Montoya SLP - 08/08/2024 9:57 AM CDT Hubert Montoya SLP 08/08/2024 11:07 AM Speech-Language Pathology: Clinical Bedside [...] diet / thin liquids General Information Brennen Joneslli 08/08/24 General Observations: Pt awake laying in bed, is MECHOOPDA, cooperative throughout exam. Pain Score: 0 - [...] conversant, requires repetition of instruction due to MECHOOPDA. Reports she is tried this morning. Oral mechanism exam WFL. Pt fed self ice chips, sips of water, bites of puree and hard solids. Slow mastication, no remarkable oral residue. No overt s/s of aspiration across several PO trials. No further CLINIC CLERK indicated. Assessment Details & Results Consistencies Administered: [...] Aspiration Risk: No aspiration risk (170-200) Plan CLINIC CLERK Frequency of Services during current admission: One-time visit (Discharge from this service) CLINIC CLERK Recommendation (Add'l Services): No further CLINIC CLERK indicated Next Visit Plan:No further ST warranted Additional Referrals: n/a Please reference care plan for treatment goals, if indicated. Discharge Summary Statement If this is the last swallow therapy visit, this serves as the discharge summary. us Maryam Terrazas DO CLINIC CLERK ORDERABLES Fin al Result * eGFR (08/08/2024 [...] DO LAB BLOOD ORDERABLE S Final Result [facility] Department [place] [address] * (ABNORMAL) Differential, auto (08/08/2024 5:29 AM CDT) Pathologist [facility] Neutrophil abs 9.4(H) 1.5 - 6.5 K/cumm Imm gran abs 0.1 0.0 - 0.1 K/cumm [facility] Lymphocyte abs 0.9 0.8 - 3.3 K/cumm [facility] Monocyte abs 0.7 0.2 - 0.8 K/cumm [facility] Eosinophil abs 0.0 0.0 - 0.5 K/cumm [facility] Basophil abs 0.0 0.0 - 0.1 K/cumm [facility] Neutrophil pct 84.2 % [facility] Comment: Interpretive Data Percent cell count reference ranges are not reported, since discordance with absolute values may lead to misinterpretation of CBC data. Current Interpretive Data was last revised on 2017. Imm gran pct 0.6 % [facility] Comment: Interpretive Data Percent cell count reference ranges are not reported, since discordance with absolute values may lead to misinterpretation of CBC data. Current Interpretive Data was last revised on 2017. Lymphocyte pct 8.0 % [facility]LU [facility] Comment: Interpretive Data Percent cell count reference ranges are not reported, since discordance with absolute values may lead to misinterpretation of CBC data. Current Interpretive Data was last revised on 2017. Monocyte pct 6.6 % [facility] Comment: Interpretive Data Percent cell count reference ranges are not reported, since discordance with absolute values may lead to misinterpretation of CBC data. Current Interpretive Data was last revised on 2017. Eosinophil pct 0.3 % [facility] Comment: Interpretive Data Percent cell count reference ranges are not reported, since discordance with absolute values may lead to misinterpretation of CBC data. Current Interpretive Data was last revised on 2017. Basophil pct 0.3 % [facility] Comment: Interpretive Data Percent cell count reference ranges are not reported, since discordance with absolute values may lead to misinterpretation of CBC data. Current Interpretive Data was last revised on 2017. Blood 08/08/2024 5:29 AM CDT 08/08/2024 6:02 AM CDT us Maryam Terrazas DO LAB BLOOD ORDERABLE S Final Result [facility] Department [place] [address] * (ABNORMAL) CBC with auto differential (08/08/2024 5:29 AM CDT) WBC 11.2(H) 3.8 - 9.9 K/cumm Hgb 9.3(L) 11.9 - 15.5 g/dL MARYLU [facility] Hct 29.8(L) 35.6 - 45.5 % [facility] Plt 312 150 - 400 K/cumm [facility] MPV 9.6 9.1 - 12.3 fL [facility] RBC 4.45 3.90 - 5.20 M/cumm [facility] MCV 67.0(L) 81.3 - 96.4 fL [facility] MCH 20.9(L) 27.1 - 33.3 pg [facility] MCHC 31.2(L) 32.3 - 35.7 g/dL [facility] RDW CV 18.8(H) 11.1 - 14.9 % [facility] RDW SD 44.1 35.7 - 48.1 fL [facility] NRBC abs 0.00 0.00 - 0.01 K/cumm [facility] Blood 08/08/2024 5:29 AM CDT 08/08/2024 6:02 AM CDT us Maryam Castro Giacomino DO LAB BLOOD ORDERABLE S Final Result Performing Organization Address City/[facility] Co de Phone Number [facility] [place] [address] * (ABNORMAL) Manual Differential (08/08/2024 5:29 AM CDT) Differential Auto RBC morphology Present(A) [facility] Hypochromasia 3-7/HPF(A) [facility] Anisocytosis Slight(A) [facility] Poikilocytosis Marked(A) [facility] Platelet estimate Adequate [facility] Blood 08/08/2024 5:29 AM CDT 08/08/2024 6:05 AM CDT us Maryam Duguerda Giacomino DO LAB BLOOD ORDERABLE S Final Result Performing Organization Address City/[facility]/ZIP Co de Phone Number [facility] Department [place] [address] * Magnesium (08/08/2024 5:29 AM CDT) [facility] Magnesium 2.2 1.4 - 2.5 mg/dL Blood 08/08/2024 5:29 AM CDT 08/08/2024 6:02 AM CDT Maryam Castro [facility] LAB BLOOD ORDERABLE S Final Result Performing Organization Address City/[facility] Co de Phone Number [facility] Department [place] [address] * (ABNORMAL) Hepatic function panel (08/08/2024 5:29 AM CDT) [facility] Bilirubin, total 1.0 0.1 - 1.2 mg/dL Bilirubin, direct 0.3 0.1 - 0.3 mg/dL [facility] Protein, pl 6.3(L) 6.5 - 8.5 g/dL [facility] Albumin 3.7 3.5 - 5.0 g/dL [facility] Alk phos 101 40 - 130 Units/L [facility] ALT 7 7 - 45 Units/L [facility] AST 28 10 - 45 Units/L [facility] Blood 08/08/2024 5:29 AM CDT 08/08/2024 6:02 AM CDT [facility] S Final Result Performing Organization Address City/[facility] Co de Phone Number [facility] Department [place] [address] * Basic metabolic panel (08/08/2024 5:29 AM CDT) [facility] Sodium 144 135 - 145 mmol/L Potassium, pl 4.1 3.3 - 4.9 mmol/L [facility] Chloride 107 97 - 110 mmol/L [facility] CO2 29 22 - 32 mmol/L [facility] Anion gap 8 2 - 15 mmol/L [facility] BUN 19 6 - 25 mg/dL [facility] Creatinine 0.78 0.60 - 1.10 mg/dL [facility] Glucose 77 70 - 199 mg/dL [facility] Comment: Interpretive Data Fasting glucose >/= 126 [...] 2022. Calcium 9.0 8.5 - 10.3 mg/dL [facility] Blood 08/08/2024 5:29 AM CDT 08/08/2024 6:02 AM CDT Maryam Terrazas DO LAB BLOOD ORDERABLE S Final Result [facility] [place] [address] * XR Chest 1 View (08/07/2024 12:30 [...] it. Electronically signed by: Shruti Garay M.D. us Maryam Castro Giacomino DO IMG XR PROCEDURES [...] data was last reviewed 2021. Blood 08/07/2024 5:2 5 AM CDT 08/07/2024 5:54 AM CDT us Maryam Gloria Terrazas DO LAB BLOOD ORDERABLE S Final Result MARYLU [facility] Department [place] [address] * (ABNORMAL) Differential, auto (08/07/2024 5:25 AM CDT) Neutrophil abs 5.2 1.5 - 6.5 K/cumm Imm gran abs 0.0 0.0 - 0.1 K/cumm [facility] Lymphocyte abs 0.6(L) 0.8 - 3.3 K/cumm [facility] Monocyte abs 0.5 0.2 - 0.8 K/cumm [facility] Eosinophil abs 0.1 0.0 - 0.5 K/cumm [facility] Basophil abs 0.0 0.0 - 0.1 K/cumm [facility] Neutrophil pct 80.5 % [facility] Comment: Interpretive Data Percent cell count reference ranges are not reported, since discordance with absolute values may lead to misinterpretation of CBC data. Current Interpretive Data was last revised on 2017. Imm gran pct 0.5 % [facility] Comment: Interpretive Data Percent cell count reference ranges are not reported, since discordance with absolute values may lead to misinterpretation of CBC data. Current Interpretive Data was last revised on 2017. Lymphocyte pct 9.7 % [facility] Comment: Interpretive Data Percent cell count reference ranges are not reported, since discordance with absolute values may lead to misinterpretation of CBC data. Current Interpretive Data was last revised on 2017. Monocyte pct 7.1 % [facility] Comment: Interpretive Data Percent cell count reference ranges are not reported, since discordance with absolute values may lead to misinterpretation of CBC data. Current Interpretive Data was last revised on 2017. Eosinophil pct 1.9 % [facility] Comment: Interpretive Data Percent cell count reference ranges are not reported, since discordance with absolute values may lead to misinterpretation of CBC data. Current Interpretive Data was last revised on 2017. Basophil pct 0.3 % [facility] Comment: Interpretive Data Percent cell count reference ranges are not reported, since discordance with absolute values may lead to misinterpretation of CBC data. Current Interpretive Data was last revised on 2017. Blood 08/07/2024 5:25 AM CDT 08/07/2024 5:49 AM CDT Maryam Terrazas DO LAB BLOOD ORDERABLE S Final Result [facility] Department [place] [address] * Respiratory pathogen panel Nasopharyngeal (08/07/2024 5:25 AM CDT) Pathologist [facility] Influenza A RNA Not Detected Not Detected Influenza B RNA Not Detected Not Detected [facility] RSV RNA Not Detected Not Detected [facility] COVID-19 RNA Not Detected Not Detected [facility] Coronavirus 229E RNA Not Detected Not Detected [facility] Coronavirus HKU1 RNA Not Detected Not Detected [facility] Coronavirus NL63 RNA Not Detected Not Detected [facility] Coronavirus OC43 RNA Not Detected Not Detected [facility] Adenovirus DNA Not Detected Not Detected [facility] Metapneumovirus RNA Not Detected Not Detected [facility] Rhinovirus/Enterov irus RNA Not Detected Not Detected [facility] Parainfluenza 1 RNA Not Detected Not Detected [facility] Parainfluenza 2 RNA Not Detected Not Detected [facility] Parainfluenza 3 RNA Not Detected Not Detected [facility] Parainfluenza 4 RNA Not Detected Not Detected [facility] B. pertussis DNA Not Detected Not Detected [facility] B. parapertussis DNA Not Detected Not Detected [facility] C. pneumoniae DNA Not Detected Not Detected [facility] M. pneumoniae DNA Not Detected Not Detected [facility] Nasopharyngeal 08/07/2024 5: 25 AM CDT 08/07/2024 12:49 PM CDT Narrative [facility] - 08/07/2024 2:25 PM CDT Is the Patient experiencing symptoms consistent with COVID?->Yes Surveillance testing for transplant patient?->No Interpretive Data The [employer] FilmArray Respiratory Panel (RP2.1) assay is a [...] patient with possible respiratory tract infection. The FilmArray RP2.1 assay has FDA clearance for testing of FERMENTOLOGIST swabs. The performance of additional specimen types has been assessed by the performing laboratory. The performance characteristics of this assay have been determined by [facility]. Current interpretive data was last revised on 22. us Maryam Hernandezmino DO LAB MICROBIOLOGY - GENERAL ORDERABLES Final Result [facility] Department [place] [address] * (ABNORMAL) CBC with auto differential (08/07/2024 5:25 AM CDT) WBC 6.5 3.8 - 9.9 K/cumm Hgb 9.1(L) 11.9 - 15.5 g/dL [facility] Hct 29.1(L) 35.6 - 45.5 % [facility] Plt 321 150 - 400 K/cumm [facility] MPV 9.6 9.1 - 12.3 fL [facility] RBC 4.32 3.90 - 5.20 M/cumm [facility] MCV 67.4(L) 81.3 - 96.4 fL [facility] MCH 21.1(L) 27.1 - 33.3 pg [facility] MCHC 31.3(L) 32.3 - 35.7 g/dL [facility] RDW CV 18.6(H) 11.1 - 14.9 % [facility] RDW SD 44.4 35.7 - 48.1 fL [facility] NRBC abs 0.00 0.00 - 0.01 K/cumm [facility] Blood 08/07/2024 5:25 AM CDT 08/07/2024 5:49 AM CDT Maryam Hernandezmino DO LAB BLOOD ORDERABLE S Final Result [facility] [place] [address] * Magnesium (08/07/2024 5:25 AM CDT) Magnesium 2.2 1.4 - 2.5 mg/dL Blood 08/07/2024 5:25 AM CDT 08/07/2024 5:54 AM CDT Maryam Castro [employer]omino DO LAB BLOOD ORDERABLE S Final Result Performing Organization Address City/[facility] Co de Phone Number [facility] [place] [address] * (ABNORMAL) Hepatic function panel (08/07/2024 5:25 AM CDT) [facility] Bilirubin, total 0.8 0.1 - 1.2 mg/dL Bilirubin, direct 0.3 0.1 - 0.3 mg/dL [facility] Protein, pl 6.4(L) 6.5 - 8.5 g/dL [facility] Albumin 3.8 3.5 - 5.0 g/dL [facility] Alk phos 108 40 - 130 Units/L [facility] ALT 7 7 - 45 Units/L [facility] AST 32 10 - 45 Units/L [facility] Blood 08/07/2024 5:25 AM CDT 08/07/2024 5:54 AM CDT Maryam HernandezIdentivjacky DO LAB BLOOD ORDERABLE S Final Result Performing Organization Address [facility] de Phone Number [facility] [place] [address] * Basic metabolic panel (08/07/2024 5:25 AM CDT) [facility] Sodium 143 135 - 145 mmol/L Potassium, pl 3.7 3.3 - 4.9 mmol/L [facility] Chloride 105 97 - 110 mmol/L [facility] CO2 31 22 - 32 mmol/L [facility] Anion gap 7 2 - 15 mmol/L [facility] BUN 18 6 - 25 mg/dL [facility] Creatinine 0.83 0.60 - 1.10 mg/dL [facility] Glucose 75 70 - 199 mg/dL [facility] Comment: Interpretive Data Fasting glucose >/= 126 [...] 2022. Calcium 8.8 8.5 - 10.3 mg/dL [facility] Blood 08/07/2024 5:25 AM CDT 08/07/2024 5:54 AM CDT Maryam Márquezalvini GiacoIdentivo DO LAB BLOOD ORDERABLE S Final Result Performing Organization Address [facility] Co de Phone Number [facility] [place] [address] * (ABNORMAL) Troponin I high-sensitivity (08/06/2024 9:18 PM CDT) Trop I hs 25(H) <=17 ng/L Comment: Interpretive Data For further hscTnI resources including the diagnostic algorithm and an aid in interpretation, copy and paste this link: [email or web address].org/[email or web address] Current Interpretive Data last revised 2019. Blood 08/06/2024 9:18 PM CDT 08/06/2024 9:48 PM CDT us Maryam Dualvini GiacoIdentivo DO LAB BLOOD ORDERABLE S Final Result Performing Organization Address City/[facility]/ZIP Co de Phone Number [facility] [place] [address] * XR Chest 1 View (08/06/2024 6:33 [...] LAB BLOOD ORDERABLE S Final Result [facility] Department of Laboratories [place], [place] [id number] * eGFR (08/06/2024 2:19 PM CDT) eGFR [...] LAB BLOOD ORDERABLE S Final Result [facility] Department [place] [address] * (ABNORMAL) Pro B-type natriuretic peptide (08/06/2024 [...] CDT 08/06/2024 2:42 PM CDT us Maryam [employer] GiacoIdentivo DO LAB BLOOD ORDERABLE S Final Result Performing Organization Address City/[facility]/ZIP Co de Phone Number [facility] [place] [address] * (ABNORMAL) Thyroid Function Mcculloch (08/06/2024 2:19 PM CDT) TSH 11.20(H) 0.30 - 4.20 mcIUnit/mL Blood 08/06/2024 2:19 PM CDT 08/06/2024 2:42 PM CDT us [employer] DO LAB BLOOD ORDERABLE S Final Result [place] [address] * Calcium, ionized (08/06/2024 2:19 PM CDT) Calcium, Ionized 4.60 4.50 - 5.10 mg/dL Blood 08/06/2024 2:19 PM CDT 08/06/2024 2:42 PM CDT us Maryam Castro Giacomino DO LAB BLOOD ORDERABLE S Final Result Performing Organization Address City/[facility]/ZIP Co de Phone Number [facility] Department [place] [address] * (ABNORMAL) Iron profile w/ IBC (08/06/2024 2:19 PM CDT) Pathologist [facility] Iron 82 35 - 145 mcg/dL TIBC 223(L) 250 - 400 mcg/dL [facility] Transferrin saturation 37 20 - 50 % [facility] Blood 08/06/2024 2:19 PM CDT 08/06/2024 2:42 PM CDT us Maryam Hernandezminjacky DO LAB BLOOD ORDERABLE S Final Result Performing Organization Address [facility] Co de Phone Number [facility] [place] [address] * HIV 1/2 Antibody plus p24 Antigen Blood (08/06/2024 2:19 PM CDT) Pathologist [facility] HIV 1/2 ab + p24 ag Nonreactive Nonreactive Comment:Nonreactive for HIV- 1 antigen and HIV-1/HIV-2 antibodies. No laboratory evidence of HIV infection. If acute HIV infection is suspected, consider testing for HIV-1 RNA. Current interpretive data was last revised on 22. Blood 08/06/2024 2:19 PM CDT 08/06/2024 2:53 PM CDT us Maryam Castro Gimichelleminjacky DO LAB MICROBIOLOGY - GENERAL ORDERABLES Final Result Performing Organization Address [facility] Co de Phone Number [facility] Department [place] [address] * (ABNORMAL) Urinalysis reflex to microscopic and culture Urine (08/06/2024 2:19 PM CDT) Color, ur Straw Yellow Clarity, ur Clear Clear [facility] Specific gravity, ur 1.009 1.003 - 1.030 [facility] pH, urine 7.5 [facility] Comment: Interpretive Data U rine pH is affected by diet, medications, systemic acid-base disturbances, and renal tubular function. pH may affect urinary stone formation. For example, urine pH below 6.0 may help reduce the tendency for calcium phosphate stones and pH greater than 6.0 may reduce the tendency for uric acid stone formation. Source: [facility] Current Interpretive Data was last revised on 2017 Protein, ur ql Negative Negative [facility] Glucose, ur ql Negative Negative [facility] Ketones, ur Negative Negative [facility] Bilirubin, ur Negative Negative [facility] Blood, ur 2+(A) Negative [facility] Urobilinogen, ur <2.0 <2.0 mg/dL [facility] Nitrite, ur Negative Negative [facility] Leukocyte esterase, ur Trace(A) Negative [facility] UA reflex comment Reflex to microscopic UA will be performed. [facility] Urine 08/06/2024 2:19 PM CDT 08/06/2024 2:41 PM CDT us Maryam [employer] Giacomino DO LAB MICROBIOLOGY - GENERAL ORDERABLES Final Result Performing Organization Address City/[facility] Co de Phone Number [facility] Department [place] [address] * RPR Blood (08/06/2024 2:19 PM CDT) RPR Nonreactive Nonreactive Blood 08/06/2024 2:19 PM CDT 08/06/2024 2:53 PM CDT us Maryam [address] GiacoIdentivo DO LAB MICROBIOLOGY - GENERAL ORDERABLES Final Result Performing Organization Address [facility]/ZIP Co de Phone Number [facility] Department [place] [address] * Blood culture Blood (08/06/2024 2:19 PM CDT) Report Final Report: No growth Blood 08/06/2024 2:19 PM CDT 08/06/2024 2:54 PM CDT Indira FRASER - 08/10/2024 4:00 PM CDT From a [...] performance characteristics have been verified by the [facility] Microbiology Laboratory. For questions about this culture, contact the Microbiology Laboratory at [phone]. Interpretive data was last revised on 24. us Maryam Terrazas DO LAB MICROBIOLOGY - GENERAL ORDERABLES Final Result [facility] Florentino [facility] Department [place] [address] * Blood culture Blood (08/06/2024 2:19 PM CDT) Report Final Report: No growth Blood 08/06/2024 2:19 PM CDT 08/06/2024 2:54 PM CDT Narrative [facility] - 08/10/2024 4:00 PM CDT Collection->Peripheral 1. [...] performance characteristics have been verified by the [facility] Microbiology Laboratory. For questions about this culture, contact the Microbiology Laboratory at [phone]. Interpretive data was last revised on 24. us Maryam Terrazas DO LAB MICROBIOLOGY - GENERAL ORDERABLES Final Result [facility] Department [place] [address] * (ABNORMAL) Urinalysis, microscopic only (08/06/2024 2:19 PM CDT) WBC, ur 0-5 0 - 5 /HPF RBC, ur >50(A) 0 - 2 /HPF [facility] Epithelial cells, squamous, ur 1-5 0 - 5 /HPF [facility] Bacteria, ur 1+(A) [facility] Mucous, ur Present(A) [facility] Hyaline casts, ur 1-5 0 - 10 /LPF [facility] Culture Reflex Comment Reflex conditions for urine culture (WBC >10) not met. [facility] Urine 08/06/2024 2:19 PM CDT 08/06/2024 2:41 PM CDT Maryam Rizoi Giacomino DO LAB URINE ORDERABLE S Final Result Performing Organization Address [facility] de Phone Number [facility] [place] [address] * (ABNORMAL) aPTT (08/06/2024 2:19 PM CDT) aPTT 39(H) 28 - 38 sec Comment: Interpretive Data Heparin therapeutic range: 66.0 - 100.0 seconds. Range based on correlation with therapeutic heparin activity range of 0.3 - 0.7 Units/mL. Current interpretive data was last revised on 2023. Blood 08/06/2024 2:19 PM CDT 08/06/2024 2:42 PM CDT Maryam Rizoi Giacomino DO LAB BLOOD ORDERABLE S Final Result Performing Organization Address [facility] de Phone Number [facility] [place] [address] * Protime-INR (08/06/2024 2:19 PM CDT) PT 9.8 9.7 - 13.0 sec INR 0.91 0.90 - 1.20 [facility] Comment: Interpretive data Oral anticoagulant therapeutic ranges: Venous thromboembolism prophylaxis or treatment: 2.0-3.0 CARDIOLOGY Standard range: 2.0-3.0 High-intensity range: 2.5-3.5 Refer to indication-specific guidelines for appropriate target ranges for prosthetic heart valve replacement. Current interpretive data was last revised on 2019. Blood 08/06/2024 2:19 PM CDT 08/06/2024 2:42 PM CDT Maryam Castro Giacomino DO LAB BLOOD ORDERABLE S Final Result Performing Organization Address City/[facility]/ZIP Co de Phone Number [facility] [place] [address] * (ABNORMAL) CBC without differential (08/06/2024 2:19 PM CDT) WBC 6.6 3.8 - 9.9 K/cumm Hgb 9.6(L) 11.9 - 15.5 g/dL [facility] Hct 31.0(L) 35.6 - 45.5 % [facility] Plt 333 150 - 400 K/cumm [facility] MPV 9.9 9.1 - 12.3 fL [facility] RBC 4.61 3.90 - 5.20 M/cumm [facility] MCV 67.2(L) 81.3 - 96.4 fL [facility] MCH 20.8(L) 27.1 - 33.3 pg [facility] MCHC 31.0(L) 32.3 - 35.7 g/dL [facility] RDW CV 19.1(H) 11.1 - 14.9 % [facility] RDW SD 44.2 35.7 - 48.1 fL [facility] NRBC abs 0.00 0.00 - 0.01 K/cumm [facility] Blood 08/06/2024 2:19 PM CDT 08/06/2024 2:53 PM CDT Maryam Gloria Giacomino DO LAB BLOOD ORDERABLE S Final Result [facility] [place] [address] * Type and screen (08/06/2024 2:19 PM CDT) Tatiana, indirect Negative ABO Rh O Positive [facility] Blood 08/06/2024 2:19 PM CDT 08/06/2024 2:43 PM CDT Narrative [facility] - 08/06/2024 3:37 PM CDT Has the patient had Daratumumab or Isatuximab in the past 6 months?->Unknown Maryam RiggsHSTYLEjacky DO LAB BLOOD BANK TEST [place] [address] * Infection Prevention MRSA Only (Staphylococcus aureus) Culture Nasal (08/06/2024 2:19 PM CDT) Report Final Report: Negative Nasal 08/06/2024 2:19 PM CDT 08/06/2024 10:24 PM CDT Narrative [facility] - 08/08/2024 1:37 AM CDT Testing performed by [facility] Microbiology Laboratory ([phone]). Maryam Castro Shyp LAB MICROBIOLOGY - GENERAL ORDERABLES Final Result Performing Organization Address City/[facility]/[place] [address] * T4, free (08/06/2024 2:19 PM CDT) Pathologist [facility] Free T4 1.21 0.90 - 1.70 ng/dL Blood 08/06/2024 2:19 PM CDT 08/06/2024 2:42 PM CDT Maryam Castro Shyp LAB BLOOD [place] [address] * Phosphorus (08/06/2024 2:19 PM CDT) Pathologist [facility] Phosphorus, pl 3.1 2.3 - 4.5 mg/dL Blood 08/06/2024 2:19 PM CDT 08/06/2024 2:42 PM CDT us Maryam Dugolenski Giacomino DO LAB BLOOD ORDERABLE S Final Result Performing Organization Address City/[facility] Co de Phone Number [facility] [place] [address] * Magnesium (08/06/2024 2:19 PM CDT) [facility] Magnesium 2.3 1.4 - 2.5 mg/dL Blood 08/06/2024 2:19 PM CDT 08/06/2024 2:42 PM CDT Maryam Dubrennenlenski Giacomino DO LAB BLOOD ORDERABLE S Final Result Performing Organization Address [facility] [place] [address] * Lactate dehydrogenase (LD) (08/06/2024 2:19 PM CDT) [facility] Lactate dehydrogenase (LDH) 238 100 - 250 Units/L Blood 08/06/2024 2:19 PM CDT 08/06/2024 2:42 PM CDT Maryam Dubrennenlenski Giacomino DO LAB BLOOD ORDERABLE S Final Result Performing Organization Address City/[facility] [place] [address] * Hemoglobin A1c (08/06/2024 2:19 PM CDT) [facility] Hgb A1C 5.5 4.0 - 5.6 % Estimated Average Glucose 111 mg/dL [facility] Comment: The ADA recommends reporting an estimated Average Glucose (eAG) with all Hemoglobin A1c results using the equation derived from a study of 507 normal and diabetic adults. Minority populations were underrepresented and children were not included. (Diabetes Care 2020; 43(S1): S66-S76). The eAG is not equivalent to a fasting glucose. Blood 08/06/2024 2:19 PM CDT 08/06/2024 2:53 PM CDT [employer] LAB BLOOD ORDERABLE S Final Result Performing Organization Address City/[facility] Co de Phone Number [facility] [place] [address] * Haptoglobin (08/06/2024 2:19 PM CDT) Haptoglobin 82.0 30.0 - 200.0 mg/dL Blood 08/06/2024 2:19 PM CDT 08/06/2024 2:42 PM CDT [employer] LAB BLOOD ORDERABLE S Final Result Performing Organization Address City/[facility] de Phone Number [facility] [place] [address] * (ABNORMAL) Blood gas, venous (08/06/2024 2:19 PM CDT) pH, Venous 7.40 7.32 - 7.43 PCO2, Venous 55(H) 40 - 50 mmHg [facility] PO2, Venous 30 mmHg [facility] Comment: Interpretive Data No Reference Range Established Current Interpretive Data was last revised on 2017. HCO3 Venous, Calculated 35(H) 20 - 30 mmol/L [facility] BE, venous 8 mmol/L [facility] Comment: Interpretive Data No Reference Range Established Current Interpretive Data was last revised on 2017. Blood 08/06/2024 2:19 PM CDT 08/06/2024 2:40 PM CDT us Maryam Dugolenski Giacomino DO LAB BLOOD ORDERABLE S Final Result Performing Organization Address City/[facility]/ZIP Co de Phone Number [facility] [place] [address] * (ABNORMAL) Ferritin (08/06/2024 2:19 PM CDT) Ferritin 342(H) 13 - 150 ng/mL Blood 08/06/2024 2:19 PM CDT 08/06/2024 2:42 PM CDT Maryam Dubrennenlenski Giacomino DO LAB BLOOD ORDERABLE S Final Result Performing Organization Address [facility] Co de Phone Number [facility] [place] [address] * Vitamin B12 (08/06/2024 2:19 PM CDT) Vitamin B12 584 230 - 1,250 pg/mL Blood 08/06/2024 2:19 PM CDT 08/06/2024 2:42 PM CDT Maryam Dubrennenlenski Giacomino DO LAB BLOOD ORDERABLE S Final Result Performing Organization Address City/[facility] Co de Phone Number [facility] [place] [address] * (ABNORMAL) Cortisol (08/06/2024 2:19 PM CDT) Cortisol 23.0(H) 4.8 - 19.5 mcg/dL Comment: Interpretive Data: Morning hours 6-10 a.m. 4.8 - 19.5 mcg/dL Afternoon hours 4-8 p.m. 2.5 - 11.9 mcg/dL This analyte undergoes marked diurnal variation. Current interpretive data was last revised 23. Blood 08/06/2024 2:19 PM CDT 08/06/2024 2:42 PM CDT Maryam Castro [employer] DO LAB BLOOD ORDERABLE S Final Result Performing Organization Address [facility] Co de Phone Number [facility] [place] [address] * (ABNORMAL) Hepatic function panel (08/06/2024 2:19 PM CDT) Bilirubin, total 0.8 0.1 - 1.2 mg/dL Bilirubin, direct 0.3 0.1 - 0.3 mg/dL [facility] Protein, pl 6.9 6.5 - 8.5 g/dL [facility] Albumin 4.1 3.5 - 5.0 g/dL [facility] Alk phos 118 40 - 130 Units/L [facility] ALT 6(L) 7 - 45 Units/L [facility] AST 34 10 - 45 Units/L [facility] Blood 08/06/2024 2:19 PM CDT 08/06/2024 2:42 PM CDT Maryam Salliejhony Terrazas [facility] BLOOD ORDERABLE S Final Result Performing Organization Address [facility] de Phone Number [facility] Department [place] [address] * (ABNORMAL) Lipid panel (08/06/2024 2:19 PM [...] revised on 2018. Triglycerides 57 <=149 mg/dL [facility] Comment: Interpretive Data Ages < or = [...] revised on 2018. HDL 80 >=40 mg/dL [facility] Comment: Interpretive Data Ages < or = [...] on 2018. LDL, calculated 125 <=129 mg/dL [facility] Comment: Interpretive Data Ages < or = 19 years Acceptable: <110 mg/dL Borderline high: 110-129 mg/dL High: >or= 130 mg/dL Ages > or = 20 years Optimal: <100 mg/dL Near optimal: 100-129 mg/dL Borderline high: 130-159 mg/dL High: >160 mg/dL Calculated using the [place] LDL-C estimating equation. This equation was implemented on 2024. Prior to this date LDL-C was estimated using the Friedewald equation. Literature References: 1. Expert Panel on Integrated Guidelines for Cardiovascular Health and Risk Reduction in Children and Adolescents. Pediatrics 2011;128:S213 2. NCEP Expert Panel. Circulation 2004;110:227 3. [place] Carroll et al. CHIARA Cardiol. 2020 September 12;5(5):540-543. doi: 10.1001/[email or web address].2020.0013 Current Interpretive Data was last revised on 2024. Non-HDL Cholesterol 135 mg/dL [facility] Comment: Interpretive Data Ages < or = [...] last revised on 2018. Chol/HDL ratio 3 [facility] Blood 08/06/2024 2:19 PM CDT 08/06/2024 2:42 PM CDT Maryam Terrazas DO LAB BLOOD ORDERABLE S Final Result [facility] [place] [address] * Basic metabolic panel (08/06/2024 2:19 PM CDT) Sodium 145 135 - 145 mmol/L Potassium, pl 4.0 3.3 - 4.9 mmol/L [facility] Chloride 102 97 - 110 mmol/L [facility] CO2 32 22 - 32 mmol/L [facility] Anion gap 11 2 - 15 mmol/L [facility] BUN 19 6 - 25 mg/dL [facility] Creatinine 0.85 0.60 - 1.10 mg/dL [facility] Glucose 96 70 - 199 mg/dL [facility] Comment: Interpretive Data Fasting glucose >/= 126 [...] 2022. Calcium 9.3 8.5 - 10.3 mg/dL [facility] [place] Blood 08/06/2024 2:19 PM CDT 08/06/2024 2:42 PM CDT us Maryam Terrazas DO LAB BLOOD ORDERABLE S Final Result [facility] Department [place] [address] * ECG 12 lead (08/06/2024 2:11 PM CDT) Pathologist [facility] Ventricular Rate EKG/Min 75 BPM [facility] Atrial Rate 75 BPM [facility] NE-Interval (MSEC) 206 ms [facility] QRS-Interval (MSEC) 94 ms [facility] QT-Interval (MSEC) 358 ms [facility] QTc 399 ms [facility] P [place] 69 degrees [facility] R [place] -4 degrees [facility] T [place] 114 degrees [facility] Diagnosis Normal sinus rhythm ST & T wave abnormality, consider lateral ischemia Abnormal ECG No previous ECGs available Confirmed by Cj AGUILERA, Mumtaz ([id number]) on 08/07/2024 2:36:10 PM [facility] 08/06/2024 2:11 PM CDT 08/07/2024 2:36 PM CDT us Maryam Hernandezminjacky DO ECG ORDERABLES Fin al Result [facility] from Last 3 Months Insurance [employer] MEDICARE GOLD [facility] [employer] TNA MEDICARE GOLD [facility] AETNA MEDICARE GOLD Advance Directives For more information, please contact: [phone] * Full Code (Latest Code Status on File) Date Activated Date Inactivated Comments 08/06/2024 2:04 PM 08/20/2024 6:13 PM Care Teams Claims Agent Right Of Way Relationship Specialty Start Date End Date Luis Almeida DO PCP - General Internal Medicine 01/06/21
--- NOTE | 2024-10-11 13:27 | ECG_ITS ---
Test Date: 2024-10-11 13:30:36 Measurements Intervals [place] Rate: 42 P: 76 CO: 215 QRS: 59 QRSD: 107 T: 76 QT: 594 QTc: 502 Interpretive Statements SINUS BRADYCARDIA WITH FIRST DEGREE AV BLOCK LEFT VENTRICULAR HYPERTROPHY AND ST-T CHANGE [VOLTAGE CRITERIA PLUS ST/T ABNORMALITY] POSSIBLE SEPTAL MYOCARDIAL INFARCTION , OF INDETERMINATE AGE [30 ms Q WAVE IN V1/V2] PROLONGED QT INTERVAL Compared to ECG 08/06/2024 08:37:23 Prolonged QT interval now present Electronically Signed On 10-11-2024 15:11:22 CDT by Sanju Schaefer M.D.
[2024-10-11] MEDS: SODIUM CHLORIDE 0.9% IV 500 ML 999 ML ×2 (14:00→16:36)
[2024-10-11 14:02] LABS: Basophils Absolute Auto 0.1 K/mm3 (0.0-0.1); Basophils Percent Auto 1.1 % (0.2-1.2); Eosinophils Absolute Auto 0.2 K/mm3 (0-0.3); Hematocrit 24.3 % (37.0-47.0); Hemoglobin 7.4 g/dL (12.0-15.0); Immature Granulocyte Absolute 0.05 K/mm3 (0.00-0.031); Immature Granulocyte Percent A 0.8 % (0-0.5); Lymphocytes Absolute Auto 1.16 K/mm3 (0.9-3.2); Lymphocytes Percent Auto 17.6 % (18.3-44.2); Mean Corpuscular HGB Conc 30.5 g/dl (32-36); Mean Corpuscular Hemoglobin 21.1 pg (26-34); Mean Corpuscular Volume 69.4 fl (80-100); Mean Platelet Volume 9.2 fl (7.4-10.4); Monocytes Absolute Auto 0.6 K/mm3 (0.1-0.6); Monocytes Percent Auto 8.3 % (2.6-8.5); Neutrophils Absolute Auto 4.6 K/mm3 (1.3-6.7); Neutrophils Percent Auto 69.2 % (45.5-73.1); Platelet Count Result 364 k/mm3 (150-375); Red Cell Distribution Width 17.6 % (11.5-14.5); White Blood Count 6.6 K/mm3 (4.5-10.0)
--- OUTSIDE RECORDS SUMMARY | 2024-10-11 14:05 | XMS_ITS | Referral Summary ---
Author Organization [facility] Address [address] [place] [address] Care Team Providers Care Nonprofit Financial Controller Name Role Phone Luis Almeida DO Primary Care Provider [phone] Encounters Date Type Department Care Team Description 09/26/2024 10:00 AM CDT Office Visit [facility] General Neurology [address] [place] [address] 6th [address] [place] [address] Peggy Suggs PA Trigeminal neuralgia (Primary Dx) 08/06/2024 1:58 PM CDT - 08/20/2024 2:13 PM CDT Hospital Encounter [facility] [address] [place] [address] Maryam Terrazas DO Liu, Sonya Yannie, MD Baum, MD Marysol Villagran James Matthew, MD Mahmood, Khalid, MD Alhalaseh, Dhara Jules MD Eye pain, left (Primary Dx); Left facial pain Discharge Disposition: Discharge to SNF 08/02/2024 Telephone [facility] Movement Disorders [address] [place] [address] 7[address] [place] [address] Racquel Etienne MD 08/02/2024 1:15 PM CDT Office Visit [facility] Ophthalmology [address] [place] [address] 1st [place] [address] Joselyn Sequeira MD Eye pain, left (Primary Dx); Malignant melanoma of conjunctiva, left (HCC) 08/01/2024 Telephone [facility] Ophthal[facility] [address] [place] [address] No, Physician Right eye pain; New symptoms/ FYI 07/23/2024 Telephone [facility] Movement [facility] [address] 7th [place] [address] Racquel Etienne MD 07/18/2024 Telephone [facility] E[facility] [address] 11th [place] [address] [place] [address] Laine Aguilera MS from Last [...] 1 tablet (50 mcg total) by mouth 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 Amiodarone decreased to 100 by outpatient merchandising representative due to bradycardia, now d/c due to [...] 5:50 PM CDT): TSH 11. FT4/FT3 wnl. 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 A&Ox3. 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 Diaz was doing well overall. She [...] hydrated Assessment & Plan (06/09/2023 1:32 PM STRIKER OFF): Mrs. Diaz presented for a follow up. 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 Recommendations [...] She was drinking boost. She lived at [facility] in assisted living and her daughter would [...] Our office will fax OT/PT orders to [facility] ATTN Alba at [phone] A message will be sent to the [...] management Assessment & Plan (04/28/2021 2:22 PM STRIKER OFF): Ms. Brennen Diaz is a 85 y.o. [...] encounter. Assessment & Plan (06/17/2020 11:03 AM STRIKER OFF): Ms. Brennen Diaz is a 84 y.o. female, who presents for follow-up for Parkinson's disease (PD), complicated by low back pain. 1. PD. She is about the same since the last visit. 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 We discussed gabapentin and she was willing to try. - Start gabapentin 100 mg with titration to 3 capsules at bedtime. Titration schedule was given through [employer]. Additional doses changes may be needed. - [...] effects were discussed during the encounter, including business process associate sedation with gabapentin. Assessment & Plan (12/16/2019 [...] 2 tablets at bedtime to help with business process associate off. - Continue carbidopa-levodopa 25-100 mg at the current dose. - Establish a regular exercise routine. - She should discuss with PCP about the use of BP medication and the vertigo. Assessment & Plan (03/21/2019 4:34 PM STRIKER OFF): Ms. Brennen Diaz is a 83 y.o. [...] on file Legal Sex Female 8:35 PM STRIKER OFF Gender Identity Female 01/25/2022 6:38 PM CDT [...] ED Urgent/IP Urgent 08/08/2024 4:30 PM CDT TRAVEL PROFESSIONAL EVALUATE AND TREAT CLINICAL SWALLOW Routine 08/08/2024 [...] MD LAB BLOOD ORDERABLES Final Res ult [facility] [place] [address] * (ABNORMAL) Differential, auto (08/18/2024 4:31 AM CDT) Neutrophil abs 4.08 1.50 - 6.50 K/cumm Imm gran abs 0.12(H) 0.00 - 0.10 K/cumm [facility] Lymphocyte abs 1.67 0.80 - 3.30 K/cumm [facility] Monocyte abs 0.60 0.20 - 0.80 K/cumm [facility] Eosinophil abs 0.26 0.00 - 0.50 K/cumm [facility] Basophil abs 0.05 0.00 - 0.10 K/cumm [facility] Neutrophil pct 60.3 % [facility] Comment: Interpretive Data Percent cell count reference ranges are not reported, since discordance with absolute values may lead to misinterpretation of CBC data. Current Interpretive Data was last revised on 2017. Imm gran pct 1.8 % [facility] Comment: Interpretive Data Percent cell count reference ranges are not reported, since discordance with absolute values may lead to misinterpretation of CBC data. Current Interpretive Data was last revised on 2017. Lymphocyte pct 24.6 % [facility] Comment: Interpretive Data Percent cell count reference ranges are not reported, since discordance with absolute values may lead to misinterpretation of CBC data. Current Interpretive Data was last revised on 2017. Monocyte pct 8.8 % [facility] Comment: Interpretive Data Percent cell count reference ranges are not reported, since discordance with absolute values may lead to misinterpretation of CBC data. Current Interpretive Data was last revised on 2017. Eosinophil pct 3.8 % [facility] Comment: Interpretive Data Percent cell count reference ranges are not reported, since discordance with absolute values may lead to misinterpretation of CBC data. Current Interpretive Data was last revised on 2017. Basophil pct 0.7 % [facility] Comment: Interpretive Data Percent cell count reference ranges are not reported, since discordance with absolute values may lead to misinterpretation of CBC data. Current Interpretive Data was last revised on 2017. Blood 08/18/2024 4:31 AM CDT 08/18/2024 5:29 AM CDT us Rocio Mccarthy MD LAB BLOOD ORDERABLES Final Res ult [facility] [place] [address] * (ABNORMAL) CBC with auto differential (08/18/2024 4:31 AM CDT) WBC 6.78 3.80 - 9.90 K/cumm Hgb 7.8(L) 11.9 - 15.5 g/dL [facility] Hct 24.7(L) 35.6 - 45.5 % [facility] Plt 427(H) 150 - 400 K/cumm [facility] MPV 9.3 9.1 - 12.3 fL [facility] RBC 3.67(L) 3.90 - 5.20 M/cumm [facility] MCV 67.3(L) 81.3 - 96.4 fL [facility] MCH 21.3(L) 27.1 - 33.3 pg [facility] MCHC 31.6(L) 32.3 - 35.7 g/dL [facility] RDW CV 18.5(H) 11.1 - 14.9 % [facility] RDW SD 43.8 35.7 - 48.1 fL [facility] NRBC abs 0.00 0.00 - 0.01 K/cumm [facility] Blood 08/18/2024 4:31 AM CDT 08/18/2024 5:29 AM CDT Rocio Mccarthy MD LAB BLOOD ORDERABLES Final Res ult [facility] [place] [address] * (ABNORMAL) Basic metabolic panel (08/18/2024 4:31 AM CDT) Sodium 140 135 - 145 mmol/L Potassium, pl 4.9 3.3 - 4.9 mmol/L [facility] Chloride 105 97 - 110 mmol/L [facility] CO2 28 22 - 32 mmol/L [facility] Anion gap 7 2 - 15 mmol/L [facility] BUN 33(H) 6 - 25 mg/dL [facility] Creatinine 0.83 0.60 - 1.10 mg/dL [facility] Glucose 103 70 - 199 mg/dL [facility] Comment: Interpretive Data Fasting glucose >/= [...] Calcium 9.0 8.5 - 10.3 mg/dL [facility] Blood 08/18/2024 4:31 AM CDT 08/18/2024 5:29 AM CDT us Rocio Mccarthy MD LAB BLOOD ORDERABLES Final Res ult [facility] [place] [address] * eGFR (08/17/2024 4:41 AM CDT) eGFR [...] MD LAB BLOOD ORDERABLES Final Res ult [facility] [place] [address] * (ABNORMAL) Differential, auto (08/17/2024 4:41 AM CDT) Neutrophil abs 4.12 1.50 - 6.50 K/cumm Imm gran abs 0.16(H) 0.00 - 0.10 K/cumm [facility] Lymphocyte abs 1.98 0.80 - 3.30 K/cumm [facility] Monocyte abs 0.61 0.20 - 0.80 K/cumm [facility] Eosinophil abs 0.22 0.00 - 0.50 K/cumm [facility] Basophil abs 0.06 0.00 - 0.10 K/cumm [facility] Neutrophil pct 57.7 % [facility] Comment: Interpretive Data Percent cell count reference ranges are not reported, since discordance with absolute values may lead to misinterpretation of CBC data. Current Interpretive Data was last revised on 2017. Imm gran pct 2.2 % [facility] Comment: Interpretive Data Percent cell count reference ranges are not reported, since discordance with absolute values may lead to misinterpretation of CBC data. Current Interpretive Data was last revised on 2017. Lymphocyte pct 27.7 % [facility] Comment: Interpretive Data Percent cell count reference ranges are not reported, since discordance with absolute values may lead to misinterpretation of CBC data. Current Interpretive Data was last revised on 2017. Monocyte pct 8.5 % [facility] Comment: Interpretive Data Percent cell count reference ranges are not reported, since discordance with absolute values may lead to misinterpretation of CBC data. Current Interpretive Data was last revised on 2017. Eosinophil pct 3.1 % [facility] Comment: Interpretive Data Percent cell count reference ranges are not reported, since discordance with absolute values may lead to misinterpretation of CBC data. Current Interpretive Data was last revised on 2017. Basophil pct 0.8 % [facility] Comment: Interpretive Data Percent cell count reference ranges are not reported, since discordance with absolute values may lead to misinterpretation of CBC data. Current Interpretive Data was last revised on 2017. Blood 08/17/2024 4:41 AM CDT 08/17/2024 5:33 AM CDT Rocio Mccarthy MD LAB BLOOD ORDERABLES Final Res ult Performing Organization Address [facility] Co de Phone Number [facility] [place] [address] * (ABNORMAL) CBC with auto differential (08/17/2024 4:41 AM CDT) WBC 7.15 3.80 - 9.90 K/cumm Hgb 7.9(L) 11.9 - 15.5 g/dL [facility] Hct 25.3(L) 35.6 - 45.5 % [facility] Plt 419(H) 150 - 400 K/cumm [facility] MPV 9.5 9.1 - 12.3 fL [facility] RBC 3.75(L) 3.90 - 5.20 M/cumm [facility] MCV 67.5(L) 81.3 - 96.4 fL [facility] MCH 21.1(L) 27.1 - 33.3 pg [facility] MCHC 31.2(L) 32.3 - 35.7 g/dL [facility] RDW CV 18.5(H) 11.1 - 14.9 % [facility] RDW SD 43.8 35.7 - 48.1 fL [facility] NRBC abs 0.00 0.00 - 0.01 K/cumm [facility] Blood 08/17/2024 4:41 AM CDT 08/17/2024 5:33 AM CDT Rocio Mccarthy MD LAB BLOOD ORDERABLES Final Res ult Performing Organization Address City/[facility]/ZIP Co de Phone Number [facility] [place] [address] * (ABNORMAL) Basic metabolic panel (08/17/2024 4:41 AM CDT) Pathologist [facility] Sodium 139 135 - 145 mmol/L Potassium, pl 5.0(H) 3.3 - 4.9 mmol/L [facility] Chloride 106 97 - 110 mmol/L [facility] CO2 28 22 - 32 mmol/L [facility] Anion gap 5 2 - 15 mmol/L [facility] BUN 38(H) 6 - 25 mg/dL [facility] Creatinine 0.78 0.60 - 1.10 mg/dL [facility] Glucose 80 70 - 199 mg/dL [facility] Comment: Interpretive Data Fasting glucose >/= [...] 2022. Calcium 8.7 8.5 - 10.3 mg/dL [facility] Blood 08/17/2024 4:41 AM CDT 08/17/2024 6:12 AM CDT Rocio Mccarthy MD LAB BLOOD ORDERABLES Final Res ult [facility] [place] [address] * eGFR (08/16/2024 3:57 AM CDT) Pathologist [facility] eGFR 65 >=60 mL/min/1. 73 m2 Comment: [...] MD LAB BLOOD ORDERABLES Final Res ult [facility] [place] [address] * (ABNORMAL) Differential, auto (08/16/2024 3:57 AM CDT) Pathologist [facility] Neutrophil abs 4.08 1.50 - 6.50 K/cumm Imm gran abs 0.19(H) 0.00 - 0.10 K/cumm [facility] Lymphocyte abs 1.86 0.80 - 3.30 K/cumm [facility] Monocyte abs 0.73 0.20 - 0.80 K/cumm [facility] Eosinophil abs 0.22 0.00 - 0.50 K/cumm [facility] Basophil abs 0.04 0.00 - 0.10 K/cumm [facility] Neutrophil pct 57.2 % [facility] Comment: Interpretive Data Percent cell count reference ranges are not reported, since discordance with absolute values may lead to misinterpretation of CBC data. Current Interpretive Data was last revised on 2017. Imm gran pct 2.7 % [facility] Comment: Interpretive Data Percent cell count reference ranges are not reported, since discordance with absolute values may lead to misinterpretation of CBC data. Current Interpretive Data was last revised on 2017. Lymphocyte pct 26.1 % [facility] Comment: Interpretive Data Percent cell count reference ranges are not reported, since discordance with absolute values may lead to misinterpretation of CBC data. Current Interpretive Data was last revised on 2017. Monocyte pct 10.3 % [facility] Comment: Interpretive Data Percent cell count reference ranges are not reported, since discordance with absolute values may lead to misinterpretation of CBC data. Current Interpretive Data was last revised on 2017. Eosinophil pct 3.1 % [facility] Comment: Interpretive Data Percent cell count reference ranges are not reported, since discordance with absolute values may lead to misinterpretation of CBC data. Current Interpretive Data was last revised on 2017. Basophil pct 0.6 % [facility] Comment: Interpretive Data Percent cell count reference ranges are not reported, since discordance with absolute values may lead to misinterpretation of CBC data. Current Interpretive Data was last revised on 2017. Blood 08/16/2024 3:57 AM CDT 08/16/2024 4:56 AM CDT us Rocio Mccarthy MD LAB BLOOD ORDERABLES Final Res ult [facility] [place] [address] * (ABNORMAL) CBC with auto differential (08/16/2024 3:57 AM CDT) WBC 7.12 3.80 - 9.90 K/cumm Hgb 8.2(L) 11.9 - 15.5 g/dL [facility] Hct 26.5(L) 35.6 - 45.5 % [facility] Plt 431(H) 150 - 400 K/cumm [facility] MPV 10.0 9.1 - 12.3 fL [facility] RBC 3.91 3.90 - 5.20 M/cumm [facility] MCV 67.8(L) 81.3 - 96.4 fL [facility] MCH 21.0(L) 27.1 - 33.3 pg [facility] MCHC 30.9(L) 32.3 - 35.7 g/dL [facility] RDW CV 18.8(H) 11.1 - 14.9 % [facility] RDW SD 44.3 35.7 - 48.1 fL [facility] NRBC abs 0.00 0.00 - 0.01 K/cumm [facility] Blood 08/16/2024 3:57 AM CDT 08/16/2024 4:56 AM CDT us Rocio Mccarthy MD LAB BLOOD ORDERABLES Final Res ult [facility] [place] [address] * (ABNORMAL) Basic metabolic panel (08/16/2024 3:57 AM CDT) Sodium 142 135 - 145 mmol/L Potassium, pl 5.3(H) 3.3 - 4.9 mmol/L [facility] Chloride 109 97 - 110 mmol/L [facility] CO2 29 22 - 32 mmol/L [facility] Anion gap 4 2 - 15 mmol/L [facility] BUN 34(H) 6 - 25 mg/dL [facility] Creatinine 0.86 0.60 - 1.10 mg/dL [facility] Glucose 94 70 - 199 mg/dL [facility] Comment: Interpretive Data Fasting glucose >/= [...] 2022. Calcium 8.9 8.5 - 10.3 mg/dL [facility] Blood 08/16/2024 3:57 AM CDT 08/16/2024 4:55 AM CDT Rocio Mccarthy MD LAB BLOOD ORDERABLES Final Res ult Performing Organization Address City/[facility] Co de Phone Number [facility] [place] [address] * eGFR (08/15/2024 4:14 AM CDT) eGFR [...] ORDERABLES Final Res ult Performing Organization Address City/[facility]/ZIP Co de Phone Number [facility] [place] [address] * (ABNORMAL) Differential, auto (08/15/2024 4:14 AM CDT) Neutrophil abs 4.84 1.50 - 6.50 K/cumm Imm gran abs 0.17(H) 0.00 - 0.10 K/cumm [facility] Lymphocyte abs 1.67 0.80 - 3.30 K/cumm [facility] Monocyte abs 0.81(H) 0.20 - 0.80 K/cumm [facility] Eosinophil abs 0.25 0.00 - 0.50 K/cumm [facility] Basophil abs 0.05 0.00 - 0.10 K/cumm [facility] Neutrophil pct 62.2 % [facility] Comment: Interpretive Data Percent cell count reference ranges are not reported, since discordance with absolute values may lead to misinterpretation of CBC data. Current Interpretive Data was last revised on 2017. Imm gran pct 2.2 % [facility] Comment: Interpretive Data Percent cell count reference ranges are not reported, since discordance with absolute values may lead to misinterpretation of CBC data. Current Interpretive Data was last revised on 2017. Lymphocyte pct 21.4 % [facility] Comment: Interpretive Data Percent cell count reference ranges are not reported, since discordance with absolute values may lead to misinterpretation of CBC data. Current Interpretive Data was last revised on 2017. Monocyte pct 10.4 % [facility] Comment: Interpretive Data Percent cell count reference ranges are not reported, since discordance with absolute values may lead to misinterpretation of CBC data. Current Interpretive Data was last revised on 2017. Eosinophil pct 3.2 % [facility] Comment: Interpretive Data Percent cell count reference ranges are not reported, since discordance with absolute values may lead to misinterpretation of CBC data. Current Interpretive Data was last revised on 2017. Basophil pct 0.6 % [facility] Comment: Interpretive Data Percent cell count reference ranges are not reported, since discordance with absolute values may lead to misinterpretation of CBC data. Current Interpretive Data was last revised on 2017. Blood 08/15/2024 4:14 AM CDT 08/15/2024 4:53 AM CDT us Rocio Mccarthy MD LAB BLOOD ORDERABLES Final Res ult [facility] [place] [address] * (ABNORMAL) CBC with auto differential (08/15/2024 4:14 AM CDT) [facility] WBC 7.79 3.80 - 9.90 K/cumm Hgb 8.2(L) 11.9 - 15.5 g/dL [facility] Hct 25.5(L) 35.6 - 45.5 % [facility] Plt 369 150 - 400 K/cumm [facility] MPV 9.9 9.1 - 12.3 fL [facility] RBC 3.82(L) 3.90 - 5.20 M/cumm [facility] MCV 66.8(L) 81.3 - 96.4 fL [facility] MCH 21.5(L) 27.1 - 33.3 pg [facility] MCHC 32.2(L) 32.3 - 35.7 g/dL [facility] RDW CV 18.7(H) 11.1 - 14.9 % [facility] RDW SD 43.8 35.7 - 48.1 fL [facility] NRBC abs 0.00 0.00 - 0.01 K/cumm [facility] Blood 08/15/2024 4:14 AM CDT 08/15/2024 4:53 AM CDT Rocio Mccarthy MD LAB BLOOD ORDERABLES Final Res ult [facility] [place] [address] * (ABNORMAL) Basic metabolic panel (08/15/2024 4:14 AM CDT) [facility] Sodium 140 135 - 145 mmol/L Potassium, pl 4.8 3.3 - 4.9 mmol/L [facility] Chloride 108 97 - 110 mmol/L [facility] CO2 28 22 - 32 mmol/L [facility] Anion gap 4 2 - 15 mmol/L [facility] BUN 30(H) 6 - 25 mg/dL [facility] Creatinine 0.71 0.60 - 1.10 mg/dL [facility] Glucose 84 70 - 199 mg/dL [facility] Comment: Interpretive Data Fasting glucose >/= [...] 2022. Calcium 8.7 8.5 - 10.3 mg/dL [facility] Blood 08/15/2024 4:14 AM CDT 08/15/2024 4:53 AM CDT Rocio Mccarthy MD LAB BLOOD ORDERABLES Final Res ult [facility] [place] [address] * eGFR (08/13/2024 9:03 PM CDT) eGFR [...] MD LAB BLOOD ORDERABLES Final Re sult [facility] [place] [address] * (ABNORMAL) Differential, auto (08/13/2024 9:03 PM CDT) Neutrophil abs 7.71(H) 1.50 - 6.50 K/cumm Imm gran abs 0.14(H) 0.00 - 0.10 K/cumm [facility] Lymphocyte abs 0.99 0.80 - 3.30 K/cumm [facility] Monocyte abs 1.07(H) 0.20 - 0.80 K/cumm [facility] Eosinophil abs 0.32 0.00 - 0.50 K/cumm [facility] Basophil abs 0.07 0.00 - 0.10 K/cumm [facility] Neutrophil pct 74.8 % [facility] Comment: Interpretive Data Percent cell count reference ranges are not reported, since discordance with absolute values may lead to misinterpretation of CBC data. Current Interpretive Data was last revised on 2017. Imm gran pct 1.4 % [facility] Comment: Interpretive Data Percent cell count reference ranges are not reported, since discordance with absolute values may lead to misinterpretation of CBC data. Current Interpretive Data was last revised on 2017. Lymphocyte pct 9.6 % [facility] Comment: Interpretive Data Percent cell count reference ranges are not reported, since discordance with absolute values may lead to misinterpretation of CBC data. Current Interpretive Data was last revised on 2017. Monocyte pct 10.4 % [facility] Comment: Interpretive Data Percent cell count reference ranges are not reported, since discordance with absolute values may lead to misinterpretation of CBC data. Current Interpretive Data was last revised on 2017. Eosinophil pct 3.1 % [facility] Comment: Interpretive Data Percent cell count reference ranges are not reported, since discordance with absolute values may lead to misinterpretation of CBC data. Current Interpretive Data was last revised on 2017. Basophil pct 0.7 % [facility] Comment: Interpretive Data Percent cell count reference ranges are not reported, since discordance with absolute values may lead to misinterpretation of CBC data. Current Interpretive Data was last revised on 2017. Blood 08/13/2024 9:03 PM CDT 08/13/2024 10:19 PM CDT us Bing Gong MD LAB BLOOD ORDERABLES Final Re sult [facility] [place] [address] * (ABNORMAL) CBC with auto differential (08/13/2024 9:03 PM CDT) WBC 10.30(H) 3.80 - 9.90 K/cumm Hgb 7.9(L) 11.9 - 15.5 g/dL [facility] Hct 25.3(L) 35.6 - 45.5 % [facility] Plt 330 150 - 400 K/cumm [facility] MPV 9.6 9.1 - 12.3 fL [facility] RBC 3.73(L) 3.90 - 5.20 M/cumm [facility] MCV 67.8(L) 81.3 - 96.4 fL [facility] MCH 21.2(L) 27.1 - 33.3 pg [facility] MCHC 31.2(L) 32.3 - 35.7 g/dL [facility] RDW CV 18.8(H) 11.1 - 14.9 % [facility] RDW SD 44.5 35.7 - 48.1 fL [facility] NRBC abs 0.00 0.00 - 0.01 K/cumm [facility] Blood 08/13/2024 9:03 PM CDT 08/13/2024 10:19 PM CDT Bing Gong MD LAB BLOOD ORDERABLES Final Re sult [facility] [place] [address] * (ABNORMAL) Basic metabolic panel (08/13/2024 9:03 PM CDT) Pathologist [facility] Sodium 142 135 - 145 mmol/L Potassium, pl 4.4 3.3 - 4.9 mmol/L [facility] Chloride 108 97 - 110 mmol/L [facility] CO2 26 22 - 32 mmol/L [facility] Anion gap 8 2 - 15 mmol/L [facility] BUN 46(H) 6 - 25 mg/dL [facility] Creatinine 0.88 0.60 - 1.10 mg/dL [facility] Glucose 108 70 - 199 mg/dL [facility] Comment: Interpretive Data Fasting glucose >/= [...] 2022. Calcium 8.4(L) 8.5 - 10.3 mg/dL [facility] Blood 08/13/2024 9:03 PM CDT 08/13/2024 10:19 PM CDT us Bing Gong MD LAB BLOOD ORDERABLES Final Re sult Performing Organization Address City/[facility]/ZIP Co de Phone Number MARYLU [facility] [place] [address] * (ABNORMAL) eGFR (08/12/2024 8:56 PM CDT) Pathologist [facility] eGFR 40(L) >=60 mL/min/1. 73 m2 Comment: [...] MD LAB BLOOD ORDERABLES Final Re sult [facility] [place] [address] * (ABNORMAL) Differential, auto (08/12/2024 8:56 PM CDT) [facility] Neutrophil abs 7.3(H) 1.5 - 6.5 K/cumm Imm gran abs 0.1 0.0 - 0.1 K/cumm [facility] Lymphocyte abs 0.9 0.8 - 3.3 K/cumm [facility] Monocyte abs 0.7 0.2 - 0.8 K/cumm [facility] Eosinophil abs 0.3 0.0 - 0.5 K/cumm [facility] Basophil abs 0.1 0.0 - 0.1 K/cumm [facility] Neutrophil pct 78.8 % [facility] Comment: Interpretive Data Percent cell count reference ranges are not reported, since discordance with absolute values may lead to misinterpretation of CBC data. Current Interpretive Data was last revised on 2017. Imm gran pct 1.0 % [facility] Comment: Interpretive Data Percent cell count reference ranges are not reported, since discordance with absolute values may lead to misinterpretation of CBC data. Current Interpretive Data was last revised on 2017. Lymphocyte pct 9.7 % [facility] Comment: Interpretive Data Percent cell count reference ranges are not reported, since discordance with absolute values may lead to misinterpretation of CBC data. Current Interpretive Data was last revised on 2017. Monocyte pct 7.1 % [facility] Comment: Interpretive Data Percent cell count reference ranges are not reported, since discordance with absolute values may lead to misinterpretation of CBC data. Current Interpretive Data was last revised on 2017. Eosinophil pct 2.9 % [facility] Comment: Interpretive Data Percent cell count reference ranges are not reported, since discordance with absolute values may lead to misinterpretation of CBC data. Current Interpretive Data was last revised on 2017. Basophil pct 0.5 % [facility] Comment: Interpretive Data Percent cell count reference ranges are not reported, since discordance with absolute values may lead to misinterpretation of CBC data. Current Interpretive Data was last revised on 2017. Blood 08/12/2024 8:56 PM CDT 08/12/2024 9:59 PM CDT us Bing Gong MD LAB BLOOD ORDERABLES Final Re sult [facility] Department [place] [address] * (ABNORMAL) CBC with auto differential (08/12/2024 8:56 PM CDT) WBC 9.3 3.8 - 9.9 K/cumm Hgb 7.9(L) 11.9 - 15.5 g/dL [facility] Hct 25.3(L) 35.6 - 45.5 % [facility] Plt 314 150 - 400 K/cumm [facility] MPV 10.2 9.1 - 12.3 fL [facility] RBC 3.74(L) 3.90 - 5.20 M/cumm [facility] MCV 67.6(L) 81.3 - 96.4 fL [facility] MCH 21.1(L) 27.1 - 33.3 pg [facility] MCHC 31.2(L) 32.3 - 35.7 g/dL [facility] RDW CV 19.3(H) 11.1 - 14.9 % [facility] RDW SD 44.0 35.7 - 48.1 fL [facility] NRBC abs 0.00 0.00 - 0.01 K/cumm [facility] Blood 08/12/2024 8:56 PM CDT 08/12/2024 9:59 PM CDT Bing Gong MD LAB BLOOD ORDERABLES Final Re sult [facility] [place] [address] * (ABNORMAL) Basic metabolic panel (08/12/2024 8:56 PM CDT) Sodium 137 135 - 145 mmol/L Potassium, pl 4.7 3.3 - 4.9 mmol/L [facility] Comment:Hemolyzed; Potassium value may be falsely elevated by as much as 0.6-1.0 mmol/L. Suggest redraw and reanalysis. Chloride 101 97 - 110 mmol/L [facility] CO2 25 22 - 32 mmol/L [facility] Anion gap 11 2 - 15 mmol/L [facility] BUN 57(H) 6 - 25 mg/dL [facility] Creatinine 1.29(H) 0.60 - 1.10 mg/dL [facility] Glucose 93 70 - 199 mg/dL [facility] Comment: Interpretive Data Fasting glucose >/= [...] ORDERABLES Final Re sult MARYLU DANIELLA [facility] [place] [address] * (ABNORMAL) eGFR (08/12/2024 12:23 AM CDT) [...] ORDERABLES Final Re sult MARYLU BREWER [facility] [place] [address] * (ABNORMAL) Differential, auto (08/12/2024 12:23 AM [...] K/cumm [facility] Neutrophil pct 81.9 % [facility] Comment: Interpretive Data Percent cell count reference ranges are not reported, since discordance with absolute values may lead to misinterpretation of CBC data. Current Interpretive Data was last revised on 2017. Imm gran pct 0.8 % [facility] Comment: Interpretive Data Percent cell count reference ranges are not reported, since discordance with absolute values may lead to misinterpretation of CBC data. Current Interpretive Data was last revised on 2017. Lymphocyte pct 6.0 % [facility] Comment: Interpretive Data Percent cell count reference ranges are not reported, since discordance with absolute values may lead to misinterpretation of CBC data. Current Interpretive Data was last revised on 2017. Monocyte pct 9.2 % [facility] Comment: Interpretive Data Percent cell count reference ranges are not reported, since discordance with absolute values may lead to misinterpretation of CBC data. Current Interpretive Data was last revised on 2017. Eosinophil pct 1.6 % [facility] Comment: Interpretive Data Percent cell count reference ranges are not reported, since discordance with absolute values may lead to misinterpretation of CBC data. Current Interpretive Data was last revised on 2017. Basophil pct 0.5 % [facility] Comment: Interpretive Data Percent cell count reference ranges are not reported, since discordance with absolute values may lead to misinterpretation of CBC data. Current Interpretive Data was last revised on 2017. Blood 08/12/2024 12:2 3 AM CDT 08/12/2024 12:52 AM CDT Bing Gong MD LAB BLOOD ORDERABLES Final Re sult Performing Organization Address City/[facility] Co de Phone Number [facility] [place] [place] [address] * (ABNORMAL) CBC with auto differential (08/12/2024 12:23 AM CDT) WBC 10.3(H) 3.8 - 9.9 K/cumm Hgb 8.3(L) 11.9 - 15.5 g/dL [facility] Hct 26.8(L) 35.6 - 45.5 % [facility] Plt 294 150 - 400 K/cumm [facility] MPV 10.0 9.1 - 12.3 fL [facility] RBC 3.98 3.90 - 5.20 M/cumm [facility] MCV 67.3(L) 81.3 - 96.4 fL [facility] MCH 20.9(L) 27.1 - 33.3 pg [facility] MCHC 31.0(L) 32.3 - 35.7 g/dL [facility] RDW CV 18.4(H) 11.1 - 14.9 % [facility] RDW SD 43.4 35.7 - 48.1 fL [facility] NRBC abs 0.00 0.00 - 0.01 K/cumm [facility] Blood 08/12/2024 12:2 3 AM CDT 08/12/2024 12:52 AM CDT Bing Gong MD LAB BLOOD ORDERABLES Final Re sult Performing Organization Address City/[facility]/ZIP Co de Phone Number [facility] [place] [address] * (ABNORMAL) Basic metabolic panel (08/12/2024 12:23 AM CDT) Sodium 139 135 - 145 mmol/L Potassium, pl 4.9 3.3 - 4.9 mmol/L [facility] Chloride 105 97 - 110 mmol/L [facility] CO2 26 22 - 32 mmol/L [facility] Anion gap 8 2 - 15 mmol/L [facility] BUN 57(H) 6 - 25 mg/dL [facility] Creatinine 1.15(H) 0.60 - 1.10 mg/dL [facility] Glucose 117 70 - 199 mg/dL [facility] Comment: Interpretive Data Fasting glucose >/= [...] 2022. Calcium 9.0 8.5 - 10.3 mg/dL [facility] Blood 08/12/2024 12:2 3 AM CDT 08/12/2024 12:52 AM CDT us Bing Gong MD LAB BLOOD ORDERABLES Final Re sult [facility] Department [place] [address] * CT Facial Bones W WO Contrast [...] and hematocrit (08/11/2024 9:37 AM CDT) Pathologist [facility] Hgb 8.1(L) 11.9 - 15.5 g/dL Hct 26.4(L) 35.6 - 45.5 % [facility] Blood 08/11/2024 9:37 AM CDT 08/11/2024 10:33 AM CDT Bing Gong MD LAB BLOOD ORDERABLES Final Re sult [facility] [place] [address] * Type and screen (08/11/2024 9:37 AM CDT) [facility] ABO Rh O Positive Tatiana, indirect Negative [facility] Blood 08/11/2024 9:37 AM CDT 08/11/2024 10:26 AM CDT Narrative [facility] - 08/11/2024 11:38 AM CDT Has the patient had Daratumumab or Isatuximab in the past 6 months?->Unknown Bing Gong MD LAB BLOOD BANK TEST ORDERABLE S Final Result [facility] [place] [address] * (ABNORMAL) eGFR (08/11/2024 3:26 AM CDT) [facility] eGFR 57(L) >=60 mL/min/1. 73 m2 Comment: [...] MD LAB BLOOD ORDERABLES Final Re sult [facility] [place] [address] * Differential, auto (08/11/2024 3:26 AM CDT) Neutrophil abs 3.5 1.5 - 6.5 K/cumm Imm gran abs 0.1 0.0 - 0.1 K/cumm [facility] Lymphocyte abs 1.1 0.8 - 3.3 K/cumm [facility] Monocyte abs 0.6 0.2 - 0.8 K/cumm [facility] Eosinophil abs 0.2 0.0 - 0.5 K/cumm [facility] Basophil abs 0.0 0.0 - 0.1 K/cumm [facility] Neutrophil pct 64.0 % [facility] Comment: Interpretive Data Percent cell count reference ranges are not reported, since discordance with absolute values may lead to misinterpretation of CBC data. Current Interpretive Data was last revised on 2017. Imm gran pct 0.9 % [facility] Comment: Interpretive Data Percent cell count reference ranges are not reported, since discordance with absolute values may lead to misinterpretation of CBC data. Current Interpretive Data was last revised on 2017. Lymphocyte pct 20.4 % [facility] Comment: Interpretive Data Percent cell count reference ranges are not reported, since discordance with absolute values may lead to misinterpretation of CBC data. Current Interpretive Data was last revised on 2017. Monocyte pct 11.1 % [facility] Comment: Interpretive Data Percent cell count reference ranges are not reported, since discordance with absolute values may lead to misinterpretation of CBC data. Current Interpretive Data was last revised on 2017. Eosinophil pct 3.0 % [facility] Comment: Interpretive Data Percent cell count reference ranges are not reported, since discordance with absolute values may lead to misinterpretation of CBC data. Current Interpretive Data was last revised on 2017. Basophil pct 0.6 % [facility] Comment: Interpretive Data Percent cell count reference ranges are not reported, since discordance with absolute values may lead to misinterpretation of CBC data. Current Interpretive Data was last revised on 2017. Blood 08/11/2024 3:26 AM CDT 08/11/2024 4:29 AM CDT us Bing Gong MD LAB BLOOD ORDERABLES Final Re sult [facility] [place] [address] * (ABNORMAL) CBC with auto differential (08/11/2024 3:26 AM CDT) WBC 5.4 3.8 - 9.9 K/cumm Hgb 7.6(L) 11.9 - 15.5 g/dL [facility] Hct 24.2(L) 35.6 - 45.5 % [facility] Plt 262 150 - 400 K/cumm [facility] MPV 10.1 9.1 - 12.3 fL [facility] RBC 3.59(L) 3.90 - 5.20 M/cumm [facility] MCV 67.4(L) 81.3 - 96.4 fL [facility] MCH 21.2(L) 27.1 - 33.3 pg [facility] MCHC 31.4(L) 32.3 - 35.7 g/dL [facility] RDW CV 18.1(H) 11.1 - 14.9 % [facility] RDW SD 43.5 35.7 - 48.1 fL [facility] NRBC abs 0.00 0.00 - 0.01 K/cumm [facility] Blood 08/11/2024 3:26 AM CDT 08/11/2024 4:29 AM CDT Bing Gong MD LAB BLOOD ORDERABLES Final Re sult Performing Organization Address [facility] Co de Phone Number [facility] [place] [place] [address] * (ABNORMAL) Vitamin D 25 hydroxy (08/11/2024 3:26 AM CDT) Pathologist [facility] Vitamin D 25-OH 22(L) 30 - 80 ng/mL Blood 08/11/2024 3:26 AM CDT 08/11/2024 4:29 AM CDT Bing Gong MD LAB BLOOD ORDERABLES Final Re sult Performing Organization Address [facility] de Phone Number [facility] [place] [place] [address] * Vitamin B1 (08/11/2024 3:26 AM CDT) Pathologist [facility] Thiamine (Vit B1) 92 70 - 180 nmol/L [facility] Comment: ADDITIONAL INFORMATION This test was developed and its performance characteristics determined by [facility] in a manner consistent with CLIA requirements. This test has not been cleared or approved by the U.S. Food and Drug Administration. Test Performed by: [facility] - [address] [address] [employer] Specialist: Karla Egan Ph.D.; CLIA# [id number] Blood 08/11/2024 3:26 AM CDT 08/11/2024 4:19 AM CDT Bing Gong MD LAB BLOOD ORDERABLES Final Re sult Performing Organization Address [facility] de Phone Number MARYLU [facility] [place] [address] [place] [facility] * (ABNORMAL) Vitamin B6 (08/11/2024 3:26 AM CDT) Pathologist [facility] Pyridoxal phosphate (Vit B6) 3(L) 5 - 50 mcg/L [facility] Comment: ADDITIONAL INFORMATION This test was developed and its performance characteristics determined by [facility] in a manner consistent with CLIA requirements. This test has not been cleared or approved by the U.S. Food and Drug Administration. Test Performed by: [place] [address] [place] [address] [employer] Specialist: Karla Egan Ph.D.; CLIA# [id number] Blood 08/11/2024 3:26 AM CDT 08/11/2024 4:19 AM CDT Bing Gong MD LAB BLOOD ORDERABLES Final Re sult Performing Organization Address [facility] de Phone Number [facility] [place] [address] [facility] * (ABNORMAL) Basic metabolic panel (08/11/2024 3:26 AM CDT) [facility] Sodium 140 135 - 145 mmol/L Potassium, pl 4.5 3.3 - 4.9 mmol/L [facility] Chloride 105 97 - 110 mmol/L [facility] CO2 28 22 - 32 mmol/L [facility] Anion gap 7 2 - 15 mmol/L [facility] BUN 39(H) 6 - 25 mg/dL [facility] Creatinine 0.97 0.60 - 1.10 mg/dL [facility] Glucose 88 70 - 199 mg/dL [facility] Comment: Interpretive Data Fasting glucose >/= [...] 2022. Calcium 8.6 8.5 - 10.3 mg/dL [facility] Blood 08/11/2024 3:26 AM CDT 08/11/2024 4:29 AM CDT Bing Gong MD LAB BLOOD ORDERABLES Final Re sult [facility] [place] [address] * (ABNORMAL) POCT glucose (08/10/2024 11:31 AM CDT) Glucose, POC 206(H) 70 - 199 mg/dL Blood 08/10/2024 11:3 1 AM CDT 08/10/2024 11:31 AM CDT Bing Gong MD LAB POCT ORDERABLES - DEVICE Final Result [facility] [place] [address] * (ABNORMAL) Hemoglobin and hematocrit (08/10/2024 9:46 AM CDT) Hgb 8.4(L) 11.9 - 15.5 g/dL Hct 26.3(L) 35.6 - 45.5 % [facility] Blood 08/10/2024 9:46 AM CDT 08/10/2024 10:21 AM CDT Bing Gong MD LAB BLOOD ORDERABLES Final Re sult Performing Organization Address City/[facility]/ZIP Co de Phone Number [facility] [place] [address] * POCT glucose (08/10/2024 7:43 AM CDT) Glucose, POC 99 70 - 199 mg/dL Blood 08/10/2024 7:43 AM CDT 08/10/2024 7:43 AM CDT Bing Gong MD LAB POCT ORDERABLES - DEVICE Final Result Performing Organization Address City/[facility] Co de Phone Number [facility] [place] [address] * eGFR (08/10/2024 3:31 AM CDT) eGFR [...] DO LAB BLOOD ORDERABLE S Final Result [facility] [place] [address] * (ABNORMAL) Differential, auto (08/10/2024 3:31 AM [...] K/cumm [facility] Neutrophil pct 75.2 % [facility] Comment: Interpretive Data Percent cell count reference ranges are not reported, since discordance with absolute values may lead to misinterpretation of CBC data. Current Interpretive Data was last revised on 2017. Imm gran pct 0.5 % [facility] Comment: Interpretive Data Percent cell count reference ranges are not reported, since discordance with absolute values may lead to misinterpretation of CBC data. Current Interpretive Data was last revised on 2017. Lymphocyte pct 12.4 % [facility] Comment: Interpretive Data Percent cell count reference ranges are not reported, since discordance with absolute values may lead to misinterpretation of CBC data. Current Interpretive Data was last revised on 2017. Monocyte pct 9.8 % [facility] Comment: Interpretive Data Percent cell count reference ranges are not reported, since discordance with absolute values may lead to misinterpretation of CBC data. Current Interpretive Data was last revised on 2017. Eosinophil pct 1.8 % [facility] Comment: Interpretive Data Percent cell count reference ranges are not reported, since discordance with absolute values may lead to misinterpretation of CBC data. Current Interpretive Data was last revised on 2017. Basophil pct 0.3 % [facility] Comment: Interpretive Data Percent cell count reference ranges are not reported, since discordance with absolute values may lead to misinterpretation of CBC data. Current Interpretive Data was last revised on 2017. Blood 08/10/2024 3:31 AM CDT 08/10/2024 4:24 AM CDT us Maryam Terrazas DO LAB BLOOD ORDERABLE S Final Result [facility] [place] [address] * (ABNORMAL) CBC with auto differential (08/10/2024 3:31 AM CDT) WBC 9.2 3.8 - 9.9 K/cumm Hgb 8.4(L) 11.9 - 15.5 g/dL [facility] Hct 26.5(L) 35.6 - 45.5 % [facility] Plt 278 150 - 400 K/cumm [facility] MPV 10.4 9.1 - 12.3 fL [facility] RBC 3.96 3.90 - 5.20 M/cumm [facility] MCV 66.9(L) 81.3 - 96.4 fL [facility] MCH 21.2(L) 27.1 - 33.3 pg [facility] MCHC 31.7(L) 32.3 - 35.7 g/dL [facility] RDW CV 18.6(H) 11.1 - 14.9 % [facility] RDW SD 43.8 35.7 - 48.1 fL [facility] NRBC abs 0.00 0.00 - 0.01 K/cumm [facility] Blood 08/10/2024 3:31 AM CDT 08/10/2024 4:24 AM CDT us Maryam Rizoi Giacomino DO LAB BLOOD ORDERABLE S Final Result Performing Organization Address [facility] Co de Phone Number [facility] [place] [address] * Erythrocyte sedimentation rate (08/10/2024 3:31 AM CDT) Erythrocyte sedimentation rate 26 1 - 30 mm/hr Blood 08/10/2024 3:31 AM CDT 08/10/2024 4:28 AM CDT Bing Gong MD LAB BLOOD ORDERABLES Final Re sult Performing Organization Address [facility] de Phone Number [facility] [place] [address] * (ABNORMAL) CRP (acute phase) (08/10/2024 3:31 AM CDT) CRP 10.1(H) <=10.0 mg/L Blood 08/10/2024 3:31 AM CDT 08/10/2024 4:24 AM CDT us Bing Gong MD LAB BLOOD ORDERABLES Final Re sult Performing Organization Address [facility] Co de Phone Number [facility] [place] [address] * Magnesium (08/10/2024 3:31 AM CDT) Magnesium 2.3 1.4 - 2.5 mg/dL Blood 08/10/2024 3:31 AM CDT 08/10/2024 4:24 AM CDT us Maryam Rizoi Giacomino DO LAB BLOOD ORDERABLE S Final Result Performing Organization Address [facility] Co de Phone Number [facility] [place] [address] * (ABNORMAL) Hepatic function panel (08/10/2024 3:31 AM CDT) [facility] Bilirubin, total 0.8 0.1 - 1.2 mg/dL Bilirubin, direct 0.3 0.1 - 0.3 mg/dL [facility] Protein, pl 5.7(L) 6.5 - 8.5 g/dL [facility] Albumin 3.3(L) 3.5 - 5.0 g/dL [facility] Alk phos 85 40 - 130 Units/L [facility] ALT 5(L) 7 - 45 Units/L [facility] AST 16 10 - 45 Units/L [facility] Blood 08/10/2024 3:31 AM CDT 08/10/2024 4:24 AM CDT Maryam Terrazas DO LAB BLOOD ORDERABLE S Final Result [facility] [place] [address] * (ABNORMAL) Basic metabolic panel (08/10/2024 3:31 AM CDT) [facility] Sodium 142 135 - 145 mmol/L Potassium, pl 4.3 3.3 - 4.9 mmol/L [facility] Chloride 106 97 - 110 mmol/L [facility] CO2 29 22 - 32 mmol/L [facility] Anion gap 7 2 - 15 mmol/L [facility] [facility] BUN 28(H) 6 - 25 mg/dL [facility] Creatinine 0.80 0.60 - 1.10 mg/dL [facility] Glucose 76 70 - 199 mg/dL [facility] Comment: Interpretive Data Fasting glucose >/= [...] 2022. Calcium 9.0 8.5 - 10.3 mg/dL [facility] Blood 08/10/2024 3:31 AM CDT 08/10/2024 4:24 AM CDT us Maryam Terrazas DO LAB BLOOD ORDERABLE S Final Result Performing Organization Address City/[facility]/ZIP Co de Phone Number [facility] [place] [place] [address] * POCT glucose (08/09/2024 7:56 PM CDT) Glucose, POC 188 70 - 199 mg/dL Blood 08/09/2024 7:56 PM CDT 08/09/2024 7:56 PM CDT us Ramila Mccord MD LAB POCT ORDERABLES - DEVICE Final Result Performing Organization Address [facility] Co de Phone Number [facility] [place] [address] * POCT glucose (08/09/2024 5:01 PM CDT) Glucose, POC 145 70 - 199 mg/dL Blood 08/09/2024 5:01 PM CDT 08/09/2024 5:01 PM CDT us Ramila Mccord MD LAB POCT ORDERABLES - DEVICE Final Result Performing Organization Address City/[facility] Co de Phone Number [facility] [place] [place] [address] * POCT glucose (08/09/2024 12:05 PM CDT) Glucose, POC 120 70 - 199 mg/dL Blood 08/09/2024 12:0 5 PM CDT 08/09/2024 12:05 PM CDT us Maryam Dugolenski Giacomino DO LAB POCT ORDERABLES - DEVICE Final Result Performing Organization Address City/[facility]/ZIP Co de Phone Number [facility] [place] [address] * POCT glucose (08/09/2024 7:45 AM CDT) Glucose, POC 127 70 - 199 mg/dL Blood 08/09/2024 7:45 AM CDT 08/09/2024 7:45 AM CDT Maryam Dugolenski Giacomino DO LAB POCT ORDERABLES - DEVICE Final Result Performing Organization Address City/[facility] Co de Phone Number [facility] [place] [address] * eGFR (08/09/2024 6:23 AM CDT) eGFR [...] DO LAB BLOOD ORDERABLE S Final Result [facility] [place] [address] * (ABNORMAL) Differential, auto (08/09/2024 6:23 AM CDT) Neutrophil abs 4.7 1.5 - 6.5 K/cumm Imm gran abs 0.1 0.0 - 0.1 K/cumm [facility] Lymphocyte abs 0.7(L) 0.8 - 3.3 K/cumm [facility] Monocyte abs 0.4 0.2 - 0.8 K/cumm [facility] Eosinophil abs 0.1 0.0 - 0.5 K/cumm [facility] Basophil abs 0.0 0.0 - 0.1 K/cumm [facility] Neutrophil pct 79.5 % [facility] Comment: Interpretive Data Percent cell count reference ranges are not reported, since discordance with absolute values may lead to misinterpretation of CBC data. Current Interpretive Data was last revised on 2017. Imm gran pct 0.8 % [facility] Comment: Interpretive Data Percent cell count reference ranges are not reported, since discordance with absolute values may lead to misinterpretation of CBC data. Current Interpretive Data was last revised on 2017. Lymphocyte pct 12.0 % [facility] Comment: Interpretive Data Percent cell count reference ranges are not reported, since discordance with absolute values may lead to misinterpretation of CBC data. Current Interpretive Data was last revised on 2017. Monocyte pct 6.6 % [facility] Comment: Interpretive Data Percent cell count reference ranges are not reported, since discordance with absolute values may lead to misinterpretation of CBC data. Current Interpretive Data was last revised on 2017. Eosinophil pct 0.8 % [facility] Comment: Interpretive Data Percent cell count reference ranges are not reported, since discordance with absolute values may lead to misinterpretation of CBC data. Current Interpretive Data was last revised on 2017. Basophil pct 0.3 % [facility] Comment: Interpretive Data Percent cell count reference ranges are not reported, since discordance with absolute values may lead to misinterpretation of CBC data. Current Interpretive Data was last revised on 2017. Blood 08/09/2024 6:23 AM CDT 08/09/2024 6:48 AM CDT us Maryam Terrazas DO LAB BLOOD ORDERABLE S Final Result [facility] One [facility] [place] [address] * (ABNORMAL) CBC with auto differential (08/09/2024 6:23 AM CDT) WBC 5.9 3.8 - 9.9 K/cumm Hgb 9.6(L) 11.9 - 15.5 g/dL [facility] Hct 29.8(L) 35.6 - 45.5 % [facility] Plt 310 150 - 400 K/cumm [facility] MPV 9.3 9.1 - 12.3 fL [facility] RBC 4.46 3.90 - 5.20 M/cumm [facility] MCV 66.8(L) 81.3 - 96.4 fL [facility] MCH 21.5(L) 27.1 - 33.3 pg [facility] MCHC 32.2(L) 32.3 - 35.7 g/dL [facility] RDW CV 18.9(H) 11.1 - 14.9 % [facility] RDW SD 43.5 35.7 - 48.1 fL [facility] NRBC abs 0.00 0.00 - 0.01 K/cumm [facility] Blood 08/09/2024 6:23 AM CDT 08/09/2024 6:48 AM CDT us Maryam Dubrennenlenski Giacomino DO LAB BLOOD ORDERABLE S Final Result [facility] [place] [address] * Magnesium (08/09/2024 6:23 AM CDT) Pathologist [facility] Magnesium 2.3 1.4 - 2.5 mg/dL Blood 08/09/2024 6:23 AM CDT 08/09/2024 6:47 AM CDT Maryam Shermanski Giacomino DO LAB BLOOD ORDERABLE S Final Result Performing Organization Address [facility] Co de Phone Number [facility] [place] [address] * Hepatic function panel (08/09/2024 6:23 AM CDT) Bilirubin, total 1.0 0.1 - 1.2 mg/dL Bilirubin, direct 0.3 0.1 - 0.3 mg/dL [facility] Protein, pl 6.9 6.5 - 8.5 g/dL [facility] Albumin 3.5 3.5 - 5.0 g/dL [facility] Alk phos 106 40 - 130 Units/L [facility] ALT 12 7 - 45 Units/L [facility] AST 30 10 - 45 Units/L [facility] Blood 08/09/2024 6:23 AM CDT 08/09/2024 6:47 AM CDT Maryam Dubrennenlenski Giacomino DO LAB BLOOD ORDERABLE S Final Result Performing Organization Address City/[facility]/ZIP Co de Phone Number [facility] [place] [address] * Basic metabolic panel (08/09/2024 6:23 AM CDT) Sodium 145 135 - 145 mmol/L Potassium, pl 4.5 3.3 - 4.9 mmol/L [facility] Chloride 106 97 - 110 mmol/L [facility] CO2 28 22 - 32 mmol/L [facility] Anion gap 11 2 - 15 mmol/L [facility] BUN 24 6 - 25 mg/dL [facility] Creatinine 0.79 0.60 - 1.10 mg/dL [facility] Glucose 114 70 - 199 mg/dL [facility] Comment: Interpretive Data Fasting glucose >/= [...] 2022. Calcium 9.6 8.5 - 10.3 mg/dL [facility] Blood 08/09/2024 6:23 AM CDT 08/09/2024 6:47 AM CDT us Maryam Terrazas DO LAB BLOOD ORDERABLE S Final Result [facility] One [facility] [place] [address] * MRI Brain Incl Orbits WO Contrast [...] by: Andria Rayo MD Maryam Terrazas DO [facility] MRI PROCEDURES Final Result * POCT glucose (08/08/2024 8:04 PM CDT) Glucose, POC 120 70 - 199 mg/dL Blood 08/08/2024 8:04 PM CDT 08/08/2024 8:04 PM CDT us Maryam Dugolenski Giacomino DO LAB POCT ORDERABLES - DEVICE Final Result Performing Organization Address City/[facility] Co de Phone Number [facility] [place] [address] * POCT glucose (08/08/2024 6:36 PM CDT) [facility] Signature Glucose, POC 142 70 - 199 mg/dL Blood 08/08/2024 6:36 PM CDT 08/08/2024 6:36 PM CDT Maryam Dugolenski Giacomino DO LAB POCT ORDERABLES - DEVICE Final Result Performing Organization Address [facility] Phone Number [facility] [place] [address] * Neuro CT Outside Consult (08/08/2024 5:21 PM CDT) Anatomical Region Laterality Modality N/A Computed Tomogra phy 08/08/2024 6:47 PM CDT Impressions 08/08/2024 7:00 PM CDT 1. No acute intracranial abnormality. 2. Thzs-qj-qmacksty degree of senescent white matter changes. 3. [...] images may or may not represent the three affiliated source data set and thus may contain [...] STUDY INITIALLY PERFORMED: 08/06/2024 at [facility] [place]. TYPE OF STUDY: Multiple CT images of [...] STUDY INITIALLY PERFORMED: 08/06/2024 at [facility] in [place]. TYPE OF STUDY: Multiple CT images of [...] IMPRESSION: 1. No acute intracranial abnormality. 2. Nrey-af-hzczuswz degree of senescent white matter changes. 3. [...] images may or may not represent the three affiliated source data set and thus may contain [...] PM CDT Narrative 08/08/2024 4:40 PM CDT [facility] [place] [address] Transthoracic Echocardiographic Report Patient Name: BRENNEN DIAZ L : 1935 (88y 9m) Gender: F Study Date: 08/08/2024 02:52:22 PM Ht(Inch): 65 Wt(Lb): 117.06 BSA: 1.56 [employer]elry Store Manager: Adalid Wilson RDCS Location: [id number] Order Provider: MARYAM TERRAZAS Heart Rate: 59 [...] [ -25.0 - -18.0 ] AI Decel Cocke 2.30 m/s2 LA Length 4C 6.21 cm [...] Procedure Note Lisa Camejo MD - 08/08/2024 [facility] [place] [address] Transthoracic Echocardiographic Report Patient Name: BRENNEN DIAZ L : 1935 (88y 9m) Gender: F Study Date: 08/08/2024 02:52:22 PM Ht(Inch): 65 Wt(Lb): 117.06 BSA: 1.56 [employer] Manager: Adalid Wilson RDCS Location: [id number] Order Provider:MARYAM TERRAZAS Heart Rate: 59 BMI: [...] m/s2 LA Length 4C 6.21 cm AI OTB611.30 msec LA Length 2C 6.70 cm MV [...] Asc Ao Diam 2D 4.61 cm MR UIG921.4 cm Asc Ao Index 2.96 cm/m2 MR [...] DO CV ECHO PROCEDURES Final Result * TRAVEL PROFESSIONAL Evaluate and Treat Clinical Swallow (08/08/2024 9:57 AM CDT) Narrative Hubert Montoya, TRAVEL PROFESSIONAL - 08/08/2024 9:57 AM CDT Hubert Montoya, TRAVEL PROFESSIONAL 08/08/2024 11:07 AM Speech-Language Pathology: Clinical Bedside [...] Observations: Pt awake laying in bed, is [place], cooperative throughout exam. Pain Score: 0 - [...] conversant, requires repetition of instruction due to [place]. Reports she is tried this morning. Oral mechanism exam WFL. Pt fed self ice chips, sips of water, bites of puree and hard solids. Slow mastication, no remarkable oral residue. No overt s/s of aspiration across several PO trials. No further TRAVEL PROFESSIONAL indicated. Assessment Details & Results Consistencies Administered: [...] Aspiration Risk: No aspiration risk (170-200) Plan TRAVEL PROFESSIONAL Frequency of Services during current admission: One-time visit (Discharge from this service) TRAVEL PROFESSIONAL Recommendation (Add'l Services): No further TRAVEL PROFESSIONAL indicated Next Visit Plan:No further ST warranted Additional Referrals: n/a Please reference care plan for treatment goals, if indicated. Discharge Summary Statement If this is the last swallow therapy visit, this serves as the discharge summary. Maryam Carbajalo DO TRAVEL PROFESSIONAL ORDERABLES Fin al Result * eGFR (08/08/2024 [...] LAB BLOOD ORDERABLE S Final Result MARYLU [facility] [place] [address] * (ABNORMAL) Differential, auto (08/08/2024 5:29 AM CDT) Neutrophil abs 9.4(H) 1.5 - 6.5 K/cumm Imm gran abs 0.1 0.0 - 0.1 K/cumm [facility] Lymphocyte abs 0.9 0.8 - 3.3 K/cumm [facility] Monocyte abs 0.7 0.2 - 0.8 K/cumm [facility] Eosinophil abs 0.0 0.0 - 0.5 K/cumm [facility] Basophil abs 0.0 0.0 - 0.1 K/cumm [facility] Neutrophil pct 84.2 % [facility] Comment: Interpretive Data Percent cell count reference ranges are not reported, since discordance with absolute values may lead to misinterpretation of CBC data. Current Interpretive Data was last revised on 2017. Imm gran pct 0.6 % [facility] Comment: Interpretive Data Percent cell count reference ranges are not reported, since discordance with absolute values may lead to misinterpretation of CBC data. Current Interpretive Data was last revised on 2017. Lymphocyte pct 8.0 % [facility] Comment: Interpretive Data Percent cell count reference ranges are not reported, since discordance with absolute values may lead to misinterpretation of CBC data. Current Interpretive Data was last revised on 2017. Monocyte pct 6.6 % [facility] Comment: Interpretive Data Percent cell count reference ranges are not reported, since discordance with absolute values may lead to misinterpretation of CBC data. Current Interpretive Data was last revised on 2017. Eosinophil pct 0.3 % [facility] Comment: Interpretive Data Percent cell count reference ranges are not reported, since discordance with absolute values may lead to misinterpretation of CBC data. Current Interpretive Data was last revised on 2017. Basophil pct 0.3 % [facility] Comment: Interpretive Data Percent cell count reference ranges are not reported, since discordance with absolute values may lead to misinterpretation of CBC data. Current Interpretive Data was last revised on 2017. Blood 08/08/2024 5:29 AM CDT 08/08/2024 6:02 AM CDT us Maryam Terrazas DO LAB BLOOD ORDERABLE S Final Result [facility] One [facility] [place] [address] * (ABNORMAL) CBC with auto differential (08/08/2024 5:29 AM CDT) WBC 11.2(H) 3.8 - 9.9 K/cumm Hgb 9.3(L) 11.9 - 15.5 g/dL [facility] Hct 29.8(L) 35.6 - 45.5 % [facility] Plt 312 150 - 400 K/cumm [facility] MPV 9.6 9.1 - 12.3 fL [facility] RBC 4.45 3.90 - 5.20 M/cumm [facility] MCV 67.0(L) 81.3 - 96.4 fL [facility] MCH 20.9(L) 27.1 - 33.3 pg [facility] MCHC 31.2(L) 32.3 - 35.7 g/dL [facility] RDW CV 18.8(H) 11.1 - 14.9 % [facility] RDW SD 44.1 35.7 - 48.1 fL [facility] NRBC abs 0.00 0.00 - 0.01 K/cumm [facility] Blood 08/08/2024 5:29 AM CDT 08/08/2024 6:02 AM CDT us Maryam Terrazas DO LAB BLOOD ORDERABLE S Final Result [facility] [place] [address] * (ABNORMAL) Manual Differential (08/08/2024 5:29 AM CDT) Differential Auto RBC morphology Present(A) [facility] Hypochromasia 3-7/HPF(A) [facility] Anisocytosis Slight(A) [facility] Poikilocytosis Marked(A) [facility] Platelet estimate Adequate [facility] Blood 08/08/2024 5:29 AM CDT 08/08/2024 6:05 AM CDT us Maryam Shermanski Giacomino DO LAB BLOOD ORDERABLE S Final Result [facility] [place] [address] * Magnesium (08/08/2024 5:29 AM CDT) Pathologist [facility] Magnesium 2.2 1.4 - 2.5 mg/dL Blood 08/08/2024 5:29 AM CDT 08/08/2024 6:02 AM CDT Maryam Rizoi Giacomino DO LAB BLOOD ORDERABLE S Final Result Performing Organization Address City/[facility]/ZIP Co de Phone Number [facility] [place] [address] * (ABNORMAL) Hepatic function panel (08/08/2024 5:29 AM CDT) Bilirubin, total 1.0 0.1 - 1.2 mg/dL Bilirubin, direct 0.3 0.1 - 0.3 mg/dL [facility] Protein, pl 6.3(L) 6.5 - 8.5 g/dL [facility] Albumin 3.7 3.5 - 5.0 g/dL [facility] Alk phos 101 40 - 130 Units/L [facility] ALT 7 7 - 45 Units/L [facility] AST 28 10 - 45 Units/L [facility] Blood 08/08/2024 5:29 AM CDT 08/08/2024 6:02 AM CDT Maryam Shermanski Giacomino DO LAB BLOOD ORDERABLE S Final Result [facility] [place] [address] * Basic metabolic panel (08/08/2024 5:29 AM CDT) Sodium 144 135 - 145 mmol/L Potassium, pl 4.1 3.3 - 4.9 mmol/L [facility] Chloride 107 97 - 110 mmol/L [facility] CO2 29 22 - 32 mmol/L [facility] Anion gap 8 2 - 15 mmol/L [facility] BUN 19 6 - 25 mg/dL [facility] Creatinine 0.78 0.60 - 1.10 mg/dL [facility] Glucose 77 70 - 199 mg/dL [facility] Comment: Interpretive Data Fasting glucose >/= [...] 2022. Calcium 9.0 8.5 - 10.3 mg/dL [facility] Blood 08/08/2024 5:29 AM CDT 08/08/2024 6:02 AM CDT us Maryam Terrazas DO LAB BLOOD ORDERABLE S Final Result [facility] One [facility] [place] [address] * XR Chest 1 View (08/07/2024 12:30 [...] DO LAB BLOOD ORDERABLE S Final Result [facility] One [facility] [place] [address] * (ABNORMAL) Differential, auto (08/07/2024 5:25 AM CDT) Neutrophil abs 5.2 1.5 - 6.5 K/cumm Imm gran abs 0.0 0.0 - 0.1 K/cumm [facility] Lymphocyte abs 0.6(L) 0.8 - 3.3 K/cumm [facility] Monocyte abs 0.5 0.2 - 0.8 K/cumm [facility] Eosinophil abs 0.1 0.0 - 0.5 K/cumm [facility] Basophil abs 0.0 0.0 - 0.1 K/cumm [facility] Neutrophil pct 80.5 % [facility] Comment: Interpretive Data Percent cell count reference ranges are not reported, since discordance with absolute values may lead to misinterpretation of CBC data. Current Interpretive Data was last revised on 2017. Imm gran pct 0.5 % [facility] Comment: Interpretive Data Percent cell count reference ranges are not reported, since discordance with absolute values may lead to misinterpretation of CBC data. Current Interpretive Data was last revised on 2017. Lymphocyte pct 9.7 % [facility] Comment: Interpretive Data Percent cell count reference ranges are not reported, since discordance with absolute values may lead to misinterpretation of CBC data. Current Interpretive Data was last revised on 2017. Monocyte pct 7.1 % [facility] Comment: Interpretive Data Percent cell count reference ranges are not reported, since discordance with absolute values may lead to misinterpretation of CBC data. Current Interpretive Data was last revised on 2017. Eosinophil pct 1.9 % [facility] Comment: Interpretive Data Percent cell count reference ranges are not reported, since discordance with absolute values may lead to misinterpretation of CBC data. Current Interpretive Data was last revised on 2017. Basophil pct 0.3 % [facility] Comment: Interpretive Data Percent cell count reference ranges are not reported, since discordance with absolute values may lead to misinterpretation of CBC data. Current Interpretive Data was last revised on 2017. Blood 08/07/2024 5:25 AM CDT 08/07/2024 5:49 AM CDT Maryam Terrazas DO LAB BLOOD ORDERABLE S Final Result [facility] One [facility] [place] [address] * Respiratory pathogen panel Nasopharyngeal (08/07/2024 5:25 AM CDT) Pathologist [facility] Influenza A RNA Not Detected Not Detected Influenza B RNA Not Detected Not Detected [facility] RSV RNA Not Detected Not Detected [facility] COVID-19 RNA Not Detected Not Detected [facility] Coronavirus 229E RNA Not Detected Not Detected [facility] Coronavirus HKU1 RNA Not Detected Not Detected [facility] Coronavirus NL63 RNA Not Detected Not Detected [facility] Coronavirus OC43 RNA Not Detected Not Detected [facility] Adenovirus DNA Not Detected Not Detected [facility] Metapneumovirus RNA Not Detected Not Detected [facility] Rhinovirus/Enterov irus RNA Not Detected Not Detected [facility] Parainfluenza 1 RNA Not Detected Not Detected [facility] Parainfluenza 2 RNA Not Detected Not Detected [facility] Parainfluenza 3 RNA Not Detected Not Detected [facility] Parainfluenza 4 RNA Not Detected Not Detected [facility] B. pertussis DNA Not Detected Not Detected [facility] B. parapertussis DNA Not Detected Not Detected [facility] C. pneumoniae DNA Not Detected Not Detected [facility] M. pneumoniae DNA Not Detected Not Detected [facility] Nasopharyngeal 08/07/2024 5: 25 AM CDT 08/07/2024 12:49 PM CDT Narrative MARYLU BREWER - 08/07/2024 2:25 PM CDT Is the Patient experiencing symptoms consistent with COVID?->Yes Surveillance testing for transplant patient?->No Interpretive Data The [employer] FilmArray Respiratory Panel (RP2.1) assay is a [...] patient with possible respiratory tract infection. The [employer]erveArray RP2.1 assay has FDA clearance for testing of RANGE MASTER swabs. The performance of additional specimen types has been assessed by the performing laboratory. The performance characteristics of this assay have been determined by [facility] Molecular Infectious Disease Laboratory. Current interpretive data was last revised on 22. Maryam Audiodraftguerda [place] Dentist DO LAB MICROBIOLOGY - GENERAL ORDERABLES Final Result Performing Organization Address City/[facility]/ZIP Co de Phone Number [facility] [place] [address] * (ABNORMAL) CBC with auto differential (08/07/2024 5:25 AM CDT) WBC 6.5 3.8 - 9.9 K/cumm Hgb 9.1(L) 11.9 - 15.5 g/dL [facility] Hct 29.1(L) 35.6 - 45.5 % [facility] Plt 321 150 - 400 K/cumm [facility] MPV 9.6 9.1 - 12.3 fL [facility] RBC 4.32 3.90 - 5.20 M/cumm [facility] MCV 67.4(L) 81.3 - 96.4 fL [facility] MCH 21.1(L) 27.1 - 33.3 pg [facility] MCHC 31.3(L) 32.3 - 35.7 g/dL [facility] RDW CV 18.6(H) 11.1 - 14.9 % [facility] RDW SD 44.4 35.7 - 48.1 fL [facility] NRBC abs 0.00 0.00 - 0.01 K/cumm [facility] Blood 08/07/2024 5:25 AM CDT 08/07/2024 5:49 AM CDT Maryam AudiodraftbrennenPhotos to Photosmarjan [place] Dentist DO LAB BLOOD ORDERABLE S Final Result Performing Organization Address City/[facility]/ZIP Co de Phone Number [facility] [place] [address] * Magnesium (08/07/2024 5:25 AM CDT) [facility] Magnesium 2.2 1.4 - 2.5 mg/dL Blood 08/07/2024 5:25 AM CDT 08/07/2024 5:54 AM CDT [facility] [place]LOOD [place] [address] * (ABNORMAL) Hepatic function panel (08/07/2024 5:25 AM CDT) [facility] Bilirubin, total 0.8 0.1 - 1.2 mg/dL Bilirubin, direct 0.3 0.1 - 0.3 mg/dL [facility] Protein, pl 6.4(L) 6.5 - 8.5 g/dL [facility] Albumin 3.8 3.5 - 5.0 g/dL [facility] Alk phos 108 40 - 130 Units/L [facility] ALT 7 7 - 45 Units/L [facility] AST 32 10 - 45 Units/L [facility] Blood 08/07/2024 5:25 AM CDT 08/07/2024 5:54 AM CDT Maryam [facility] BLOOD ORDERABLE S Final Result [facility] [place] [address] * Basic metabolic panel (08/07/2024 5:25 AM CDT) [facility] Sodium 143 135 - 145 mmol/L Potassium, pl 3.7 3.3 - 4.9 mmol/L [facility] Chloride 105 97 - 110 mmol/L [facility] CO2 31 22 - 32 mmol/L [facility] Anion gap 7 2 - 15 mmol/L [facility] BUN 18 6 - 25 mg/dL [facility] Creatinine 0.83 0.60 - 1.10 mg/dL [facility] Glucose 75 70 - 199 mg/dL [facility] Comment: Interpretive Data Fasting glucose >/= [...] 2022. Calcium 8.8 8.5 - 10.3 mg/dL [facility] Blood 08/07/2024 5:25 AM CDT 08/07/2024 5:54 AM CDT us Maryam [facility] BubbleacoWelcareo DO LAB BLOOD ORDERABLE S Final Result [facility] [place] [address] * (ABNORMAL) Troponin I high-sensitivity (08/06/2024 9:18 PM CDT) Trop I hs 25(H) <=17 ng/L Comment: Interpretive Data For further [facility] resources including the diagnostic algorithm and an aid in interpretation, copy and paste this link: [email or web address] Current Interpretive Data last revised 2019. Blood 08/06/2024 9:18 PM CDT 08/06/2024 9:48 PM CDT us Maryam Audiodraftguerda Giacomino DO LAB BLOOD ORDERABLE S Final Result [facility] [place] [address] * XR Chest 1 View (08/06/2024 6:33 [...] Final Result Performing Organization Address [facility] Co de Phone Number MARYLU [facility] [place] [address] * eGFR (08/06/2024 2:19 PM CDT) eGFR [...] PM CDT 08/06/2024 2:42 PM CDT Maryam eTrrazas DO LAB BLOOD ORDERABLE S Final Result Performing Organization Address [facility] Co de Phone Number [facility] [place] [address] * (ABNORMAL) Pro B-type natriuretic peptide (08/06/2024 [...] CDT 08/06/2024 2:42 PM CDT us Maryam DuAttentive.lylenski Giacomino DO LAB BLOOD ORDERABLE S Final Result MARYLU [facility] [place] [address] * (ABNORMAL) Thyroid Function Alexander (08/06/2024 2:19 PM CDT) TSH 11.20(H) 0.30 - 4.20 mcIUnit/mL Blood 08/06/2024 2:19 PM CDT 08/06/2024 2:42 PM CDT us Maryam DuNauchime.orgalan[employer] GiacoWelcareo DO LAB BLOOD ORDERABLE S Final Result [facility] [place] [address] * Calcium, ionized (08/06/2024 2:19 PM CDT) [facility] Calcium, Ionized 4.60 4.50 - 5.10 mg/dL Blood 08/06/2024 2:19 PM CDT 08/06/2024 2:42 PM CDT Maryam Dugolenski Giacomino DO LAB BLOOD ORDERABLE S Final Result [facility] [place] [address] * (ABNORMAL) Iron profile w/ IBC (08/06/2024 2:19 PM CDT) [facility] Iron 82 35 - 145 mcg/dL TIBC 223(L) 250 - 400 mcg/dL [facility] Transferrin saturation 37 20 - 50 % [facility] Blood 08/06/2024 2:19 PM CDT 08/06/2024 2:42 PM CDT Maryam AudiodraftbrennenPhotos to [employer]ki Giacomino DO LAB BLOOD ORDERABLE S Final Result [facility] [place] [address] * HIV 1/2 Antibody plus p24 Antigen Blood (08/06/2024 2:19 PM CDT) [facility] HIV 1/2 ab + p24 ag Nonreactive Nonreactive Comment:Nonreactive for HIV- 1 antigen and HIV-1/HIV-2 antibodies. No laboratory evidence of HIV infection. If acute HIV infection is suspected, consider testing for HIV-1 RNA. Current interpretive data was last revised on 22. Blood 08/06/2024 2:19 PM CDT 08/06/2024 2:53 PM CDT Maryam Castro Giacomino DO LAB MICROBIOLOGY - GENERAL ORDERABLES Final Result [facility] [place] [address] * (ABNORMAL) Urinalysis reflex to microscopic and culture Urine (08/06/2024 2:19 PM CDT) Color, ur Straw Yellow Clarity, ur Clear Clear [facility] Specific gravity, ur 1.009 1.003 - 1.030 [facility] pH, urine 7.5 [facility] Comment: Interpretive Data U rine pH is affected by diet, medications, systemic acid-base disturbances, and renal tubular function. pH may affect urinary stone formation. For example, urine pH below 6.0 may help reduce the tendency for calcium phosphate stones and pH greater than 6.0 may reduce the tendency for uric acid stone formation. Source: [facility] Current Interpretive Data was last revised on 2017 Protein, ur ql Negative Negative [facility] Glucose, ur ql Negative Negative [facility] Ketones, ur Negative Negative [facility] Bilirubin, ur Negative Negative [facility] Blood, ur 2+(A) Negative [facility] Urobilinogen, ur <2.0 <2.0 mg/dL [facility] Nitrite, ur Negative Negative [facility] Leukocyte esterase, ur Trace(A) Negative [facility] UA reflex comment Reflex to microscopic UA will be performed. [facility] Urine 08/06/2024 2:19 PM CDT 08/06/2024 2:41 PM CDT us Maryam Riggsacominjacky DO LAB MICROBIOLOGY - GENERAL ORDERABLES Final Result Performing Organization Address City/[facility]/ZIP Co de Phone Number [facility] [place] [address] * RPR Blood (08/06/2024 2:19 PM CDT) RPR Nonreactive Nonreactive Blood 08/06/2024 2:19 PM CDT 08/06/2024 2:53 PM CDT PhilSmile DO LAB MICROBIOLOGY - GENERAL ORDERABLES Final Result Performing Organization Address City/[facility]/ZIP Co de Phone Number MARYLU [facility] [place] [address] * Blood culture Blood (08/06/2024 2:19 PM [...] performance characteristics have been verified by the [facility]. For questions about this culture, contact the Microbiology Laboratory at [phone]. Interpretive data was last revised on 24. PhilSmile DO LAB MICROBIOLOGY - GENERAL ORDERABLES Final Result MARYLU BREWER Florentino [facility] [place] [address] * Blood culture Blood (08/06/2024 2:19 PM [...] performance characteristics have been verified by the [facility]. For questions about this culture, contact the Microbiology Laboratory at [phone]. Interpretive data was last revised on 24. us Maryam Terrazas DO LAB MICROBIOLOGY - GENERAL ORDERABLES Final Result Performing Organization Address City/[facility]/ZIP Co de Phone Number MARYLU BREWER Florentino [facility] [place] [address] * (ABNORMAL) Urinalysis, microscopic only (08/06/2024 2:19 PM CDT) WBC, ur 0-5 0 - 5 /HPF RBC, ur >50(A) 0 - 2 /HPF [facility] Epithelial cells, squamous, ur 1-5 0 - 5 /HPF [facility] Bacteria, ur 1+(A) [facility] Mucous, ur Present(A) [facility] Hyaline casts, ur 1-5 0 - 10 /LPF [facility] Culture Reflex Comment Reflex conditions for urine culture (WBC >10) not met. [facility] Urine 08/06/2024 2:19 PM CDT 08/06/2024 2:41 PM CDT Maryam Audiodraftguerda Resverlogixo DO LAB URINE ORDERABLE S Final Result Performing Organization Address [facility] de Phone Number [facility] [place] [place] [address] * (ABNORMAL) aPTT (08/06/2024 2:19 PM CDT) aPTT 39(H) 28 - 38 sec Comment: Interpretive Data Heparin therapeutic range: 66.0 - 100.0 seconds. Range based on correlation with therapeutic heparin activity range of 0.3 - 0.7 Units/mL. Current interpretive data was last revised on 2023. Blood 08/06/2024 2:19 PM CDT 08/06/2024 2:42 PM CDT us Maryam Audiodraftguerda GiacoWelcareo DO LAB BLOOD ORDERABLE S Final Result Performing Organization Address [facility] Co de Phone Number [facility] [place] [address] * Protime-INR (08/06/2024 2:19 PM CDT) PT 9.8 9.7 - 13.0 sec INR 0.91 0.90 - 1.20 [facility] Comment: Interpretive data Oral anticoagulant therapeutic [...] ORDERABLE S Final Result Performing Organization Address City/[facility]/ZIP Co de Phone Number [facility] [place] [address] * (ABNORMAL) CBC without differential (08/06/2024 2:19 PM CDT) WBC 6.6 3.8 - 9.9 K/cumm Hgb 9.6(L) 11.9 - 15.5 g/dL [facility] Hct 31.0(L) 35.6 - 45.5 % [facility] Plt 333 150 - 400 K/cumm [facility] MPV 9.9 9.1 - 12.3 fL [facility] RBC 4.61 3.90 - 5.20 M/cumm [facility] MCV 67.2(L) 81.3 - 96.4 fL [facility] MCH 20.8(L) 27.1 - 33.3 pg [facility] MCHC 31.0(L) 32.3 - 35.7 g/dL [facility] RDW CV 19.1(H) 11.1 - 14.9 % [facility] RDW SD 44.2 35.7 - 48.1 fL [facility] NRBC abs 0.00 0.00 - 0.01 K/cumm [facility] Blood 08/06/2024 2:19 PM CDT 08/06/2024 2:53 PM CDT us Maryam Castro Giacomino DO LAB BLOOD ORDERABLE S Final Result Performing Organization Address City/[facility]/ZIP Co de Phone Number [facility] [place] [address] * Type and screen (08/06/2024 2:19 PM CDT) Tatiana, indirect Negative ABO Rh O Positive [facility] Blood 08/06/2024 2:19 PM CDT 08/06/2024 2:43 PM CDT Narrative [facility] - 08/06/2024 3:37 PM CDT Has the patient had Daratumumab or Isatuximab in the past 6 months?->Unknown us Maryam Terrazas DO LAB BLOOD BANK TEST ORDERABLES Final Result [facility] [place] [address] * Infection Prevention MRSA Only (Staphylococcus aureus) Culture Nasal (08/06/2024 2:19 PM CDT) Report Final Report: Negative Nasal 08/06/2024 2:19 PM CDT 08/06/2024 10:24 PM CDT Narrative [facility] - 08/08/2024 1:37 AM CDT Testing performed by [facility] ([phone]). us Maryam Terrazas DO LAB MICROBIOLOGY - GENERAL ORDERABLES Final Result [facility] [place] [address] * T4, free (08/06/2024 2:19 PM CDT) Free T4 1.21 0.90 - 1.70 ng/dL Blood 08/06/2024 2:19 PM CDT 08/06/2024 2:42 PM CDT us Maryam Dugolenski Giacomino DO LAB BLOOD [place] [address] * Phosphorus (08/06/2024 2:19 PM CDT) Phosphorus, pl 3.1 2.3 - 4.5 mg/dL Blood 08/06/2024 2:19 PM CDT 08/06/2024 2:42 PM CDT us Maryam Shermanski Giacomino DO LAB BLOOD ORDERABLE S Final Result Performing Organization Address [facility]/[place] [address] * Magnesium (08/06/2024 2:19 PM CDT) Magnesium 2.3 1.4 - 2.5 mg/dL Blood 08/06/2024 2:19 PM CDT 08/06/2024 2:42 PM CDT us Maryam Shermanski Giacomino DO LAB BLOOD ORDERABLE S Final Result Performing Organization Address City/[facility]/ZIP Co de Phone Number [facility] [place] [address] * Lactate dehydrogenase (LD) (08/06/2024 2:19 PM CDT) Lactate dehydrogenase (LDH) 238 100 - 250 Units/L Blood 08/06/2024 2:19 PM CDT 08/06/2024 2:42 PM CDT us Maryam Dubrennenlenski Giacomino DO LAB BLOOD ORDERABLE S Final Result [facility] [place] [address] * Hemoglobin A1c (08/06/2024 2:19 PM CDT) Pathologist [facility] Hgb A1C 5.5 4.0 - 5.6 % Estimated Average Glucose 111 mg/dL [facility] Comment: The ADA recommends reporting an estimated Average Glucose (eAG) with all Hemoglobin A1c results using the equation derived from a study of 507 normal and diabetic adults. Minority populations were underrepresented and children were not included. (Diabetes Care 2020; 43(S1): S66-S76). The eAG is not equivalent to a fasting glucose. Blood 08/06/2024 2:19 PM CDT 08/06/2024 2:53 PM CDT Maryam Audiodraftpamellaski GiacoWelcareo DO LAB BLOOD ORDERABLE S Final Result Performing Organization Address [facility] Co de Phone Number [facility] [place] [address] * Haptoglobin (08/06/2024 2:19 PM CDT) [facility] Haptoglobin 82.0 30.0 - 200.0 mg/dL Blood 08/06/2024 2:19 PM CDT 08/06/2024 2:42 PM CDT Maryam [facility] BubbleacoWelcareo DO LAB BLOOD ORDERABLE S Final Result [facility] [place] [address] * (ABNORMAL) Blood gas, venous (08/06/2024 2:19 PM CDT) [facility] pH, Venous 7.40 7.32 - 7.43 PCO2, Venous 55(H) 40 - 50 mmHg [facility] PO2, Venous 30 mmHg [facility] Comment: Interpretive Data No Reference Range Established Current Interpretive Data was last revised on 2017. HCO3 Venous, Calculated 35(H) 20 - 30 mmol/L [facility] BE, venous 8 mmol/L [facility] Comment: Interpretive Data No Reference Range Established Current Interpretive Data was last revised on 2017. Blood 08/06/2024 2:19 PM CDT 08/06/2024 2:40 PM CDT us Maryam Dugolenski Giacomino DO LAB BLOOD ORDERABLE S Final Result [facility] [place] [address] * (ABNORMAL) Ferritin (08/06/2024 2:19 PM CDT) Ferritin 342(H) 13 - 150 ng/mL Blood 08/06/2024 2:19 PM CDT 08/06/2024 2:42 PM CDT us Maryam Dugolenski Giacomino DO LAB BLOOD ORDERABLE S Final Result Performing Organization Address City/[facility]/ZIP Co de Phone Number [facility] [place] [address] * Vitamin B12 (08/06/2024 2:19 PM CDT) Vitamin B12 584 230 - 1,250 pg/mL Blood 08/06/2024 2:19 PM CDT 08/06/2024 2:42 PM CDT Maryam Dugolenski Giacomino DO LAB BLOOD ORDERABLE S Final Result Performing Organization Address City/[facility] Co de Phone Number [facility] [place] [address] * (ABNORMAL) Cortisol (08/06/2024 2:19 PM CDT) Cortisol 23.0(H) 4.8 - 19.5 mcg/dL Comment: Interpretive Data: Morning hours 6-10 a.m. 4.8 - 19.5 mcg/dL Afternoon hours 4-8 p.m. 2.5 - 11.9 mcg/dL This analyte undergoes marked diurnal variation. Current interpretive data was last revised 23. Blood 08/06/2024 2:19 PM CDT 08/06/2024 2:[address] [facility]ubblehol[facility] hospitalBioniq Health LAB BLOOD ORDERABLE S Final Result Performing Organization Address [facility] Co de Phone Number [facility] [place] [address] * (ABNORMAL) Hepatic function panel (08/06/2024 2:19 PM CDT) Bilirubin, total 0.8 0.1 - 1.2 mg/dL Bilirubin, direct 0.3 0.1 - 0.3 mg/dL [facility] Protein, pl 6.9 6.5 - 8.5 g/dL [facility] Albumin 4.1 3.5 - 5.0 g/dL [facility] Alk phos 118 40 - 130 Units/L [facility] ALT 6(L) 7 - 45 Units/L [facility] AST 34 10 - 45 Units/L [facility] Blood 08/06/2024 2:19 PM CDT 08/06/2024 2:42 PM CDT Maryam [employer] Services[facility] LAB BLOOD ORDERABLE S Final Result [facility] [employer] [place] [address] * (ABNORMAL) Lipid panel (08/06/2024 2:19 PM [...] revised on 2018. Triglycerides 57 <=149 mg/dL [facility] Comment: Interpretive Data Ages < [...] revised on 2018. HDL 80 >=40 mg/dL [facility] Comment: Interpretive Data Ages < [...] on 2018. LDL, calculated 125 <=129 mg/dL [facility] Comment: Interpretive Data Ages < or = [...] revised on 2024. Non-HDL Cholesterol 135 mg/dL [facility] Comment: Interpretive Data Ages < [...] last revised on 2018. Chol/HDL ratio 3 [facility] Blood 08/06/2024 2:19 PM CDT 08/06/2024 2:42 PM CDT us Maryam Terrazas DO LAB BLOOD ORDERABLE S Final Result [facility] One [facility] [place] [address] * Basic metabolic panel (08/06/2024 2:19 PM CDT) Sodium 145 135 - 145 mmol/L Potassium, pl 4.0 3.3 - 4.9 mmol/L [facility] Chloride 102 97 - 110 mmol/L [facility] CO2 32 22 - 32 mmol/L [facility] Anion gap 11 2 - 15 mmol/L [facility] BUN 19 6 - 25 mg/dL [facility] Creatinine 0.85 0.60 - 1.10 mg/dL [facility] Glucose 96 70 - 199 mg/dL [facility] Comment: Interpretive Data Fasting glucose >/= [...] 2022. Calcium 9.3 8.5 - 10.3 mg/dL [facility] Blood 08/06/2024 2:19 PM CDT 08/06/2024 2:42 PM CDT Maryam Terrazas DO LAB BLOOD ORDERABLE S Final Result [facility] One [facility] [place] [address] * ECG 12 lead (08/06/2024 2:11 PM CDT) Ventricular Rate EKG/Min 75 BPM [facility] Atrial Rate 75 BPM [facility] NV-Interval (MSEC) 206 ms [facility] QRS-Interval (MSEC) 94 ms [facility] QT-Interval (MSEC) 358 ms [facility] QTc 399 ms [facility] P [place] 69 degrees [facility] R [place] -4 degrees [facility] T [place] 114 degrees [facility] Diagnosis Normal sinus rhythm ST & T wave abnormality, consider lateral ischemia Abnormal ECG No previous ECGs available Confirmed by Mumtaz Corona MD ([id number]) on 08/07/2024 2:36:10 PM [facility] 08/06/2024 2:11 PM CDT 08/07/2024 2:36 PM CDT us Maryam Terrazas DO ECG ORDERABLES Fin al Result [facility] from Last 3 Months Insurance [employer] MEDICARE GOLD [facility] AETNA MEDICARE GOLD [facility] [employer] MEDICARE GOLD Advance Directives For more information, please contact: [phone] * Full Code (Latest Code Status on File) Date Activated Date Inactivated Comments 08/06/2024 2:04 PM 08/20/2024 6:13 PM Care Teams Nonprofit Financial Controller Relationship Specialty Start Date End Date Luis Almeida DO PCP - General Internal Medicine 01/06/21
--- OUTSIDE RECORDS SUMMARY | 2024-10-11 14:05 | XMS_ITS ---
Author Organization [facility] Address [address] [place] [address] Care Team Providers Care Ux Manager Name Role Phone Luis Almeida DO Primary Care Provider [phone] Active Problems Problem Noted Date Diagnosed Date Trigeminal neuralgia 09/26/2024 Paroxysmal A-fib 08/13/2024 Assessment & Plan (08/19/2024 2:34 PM CDT): Diagnosed June 2024. S/p cardioversion per family. Started on eliquis, amiodarone. Eliquis stopped due to severe epistaxis. Amiodarone decreased to 100 by outpatient case resolution specialist due to bradycardia, now d/c due [...] 5:50 PM CDT): TSH 11. FT4/FT3 wnl. DESPATCH CLERK synthroid Anemia of chronic disease/iron deficiency anemia [...] was then dose reduced to 100mg qdaily DESPATCH CLERK with persistence of symptoms and presentation this [...] tumor 09/14/22 OS and was sent to [facility] The path was read as conj melanoma [...] baseline per family. A&Ox3. On home carbidopa-levodopa DESPATCH CLERK carbidopa-levodopa, mirtazapine Swallow eval: mechanical soft diet Assessment & Plan (06/17/2024 12:44 PM DISULFURIZER TENDER): Mrs. Mckoy was doing well overall. She [...] hydrated Assessment & Plan (06/09/2023 1:32 PM DISULFURIZER TENDER): Mrs. Mckoy presented for a follow up. [...] scheduled to follow up with her medical laboratory specialist today post surgical removal of melanoma. [...] She was drinking boost. She lived at [facility] in assisted living and her daughter [...] Our office will fax OT/PT orders to [facility] ATTN Alba at [phone] A message will be sent to the [...] management Assessment & Plan (04/28/2021 2:22 PM DISULFURIZER TENDER): Ms. Haven Mckoy is a 85 y.o. [...] encounter. Assessment & Plan (06/17/2020 11:03 AM DISULFURIZER TENDER): Ms. Haven Mckoy is a 84 y.o. female, who presents for follow-up for Parkinson's disease (PD), complicated by low back pain. 1. PD. She is about the same since the last visit. She continues to have test borer stiffness and increase in nighttime carbidopa-levodopa CR has not helped. We discussed gabapentin and she was willing to try. - Start gabapentin 100 mg with titration to 3 capsules at bedtime. Titration schedule was given through [employer]. Additional doses changes may be needed. - [...] effects were discussed during the encounter, including test borer sedation with gabapentin. Assessment & Plan (12/16/2019 [...] 2 tablets at bedtime to help with test borer off. - Continue carbidopa-levodopa 25-100 mg at the current dose. - Establish a regular exercise routine. - She should discuss with PCP about the use of BP medication and the vertigo. Assessment & Plan (03/21/2019 4:34 PM DISULFURIZER TENDER): Ms. Haven Mckoy is a 83 y.o. [...]
--- OUTSIDE RECORDS SUMMARY | 2024-10-11 14:05 | XMS_ITS | Clinical Summary ---
Author Organization [facility] Address [address] [place] [address] Care Team Providers Care Deputy General Counsel Name Role Phone Luis Almeida DO Primary Care Provider [phone] Allergies Active Allergy Reactions Criticality Noted Date [...] 1 tablet (50 mcg total) by mouth shipping agent before breakfast 08/22/19 25 Active polyethylene glycol [...] epistaxis. Amiodarone decreased to 100 by outpatient air conditioning service technician due to bradycardia, now d/c due to [...] 5:50 PM CDT): TSH 11. FT4/FT3 wnl. POST PARTUM NURSE synthroid Anemia of chronic disease/iron deficiency anemia [...] was then dose reduced to 100mg qdaily POST PARTUM NURSE with persistence of symptoms and presentation this [...] 09/14/22 OS and was sent to [facility] The path was read as conj melanoma [...] baseline per family. A&Ox3. On home carbidopa-levodopa POST PARTUM NURSE carbidopa-levodopa, mirtazapine Swallow eval: mechanical soft diet Assessment & Plan (06/17/2024 12:44 PM LEAD COOK): Mrs. Diaz was doing well overall. She [...] hydrated Assessment & Plan (06/09/2023 1:32 PM LEAD COOK): Mrs. Diaz presented for a follow up. 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 [...] She was drinking boost. She lived at [facility] in assisted living and her daughter [...] Our office will fax OT/PT orders to [facility] ATTN Alba at [phone] A message will be sent to the [...] management Assessment & Plan (04/28/2021 2:22 PM LEAD COOK): Ms. Brennen Diaz is a 85 y.o. [...] encounter. Assessment & Plan (06/17/2020 11:03 AM LEAD COOK): Ms. Brennen Diaz is a 84 y.o. female, who presents for follow-up for Parkinson's disease (PD), complicated by low back pain. 1. PD. She is about the same since the last visit. She continues to have shipping agent stiffness and increase in nighttime carbidopa-levodopa CR has not helped. We discussed gabapentin and she was willing to try. - Start gabapentin 100 mg with titration to 3 capsules at bedtime. Titration schedule was given through [facility]. Additional doses changes may be needed. - [...] effects were discussed during the encounter, including shipping agent sedation with gabapentin. Assessment & Plan (12/16/2019 [...] 2 tablets at bedtime to help with shipping agent off. - Continue carbidopa-levodopa 25-100 mg at the current dose. - Establish a regular exercise routine. - She should discuss with PCP about the use of BP medication and the vertigo. Assessment & Plan (03/21/2019 4:34 PM LEAD COOK): Ms. Brennen Diaz is a 83 y.o. [...] Description 09/26/2024 10:00 AM CDT Office Visit [facility] General Neurology [address] [facility] [address] [facility] 6th [address] [place] [address] Peggy Suggs PA Trigeminal neuralgia (Primary Dx) 08/06/2024 1:58 PM CDT - 08/20/2024 2:13 PM CDT Hospital Encounter [facility] [address] [place] [address] Maryam Terrazas, DO Mccord, MD Beltran Anderson, MD Marysol Villagran, MD Fabio Sandra Khalid, MD Alhalaseh, Dhara Jules MD Eye pain, left (Primary Dx); Left facial pain Discharge Disposition: Discharge to SNF 08/02/2024 1:15 PM CDT Office Visit [facility] Ophthalmology [address] 1st [place] [address] Joselyn Sequeira MD Eye pain, left (Primary Dx); Malignant melanoma of conjunctiva, left (HCC) 08/02/2024 Telephone [facility] Movement Disorders [address] [facility] [address] [facility] 7th [place] [address] Racquel Etienne MD 08/01/2024 Telephone [facility] Ophthalmology [address] [place] [address] No, Physician Right eye pain; New symptoms/ FYI 07/23/2024 Telephone [facility] Movement Disorders [address] [facility] [facility] 7th [place] [address] Racquel Etienne MD 07/18/2024 Telephone [facility] Advanced Medicine ([facility]) - [facility] ENT [address] [facility] 11th [place] [address] [place] [address] Laine Aguilera MS from Last 3 Months Immunizations Immunization Administration Dates Next Due Influenza, Trivalent, High D ose, Split, Preservative Free, Intramuscular 06/14/2017 Surgical History Surgery Date Site/Laterality Comments IA TOTAL ABDOMINAL HYSTERECT W/WO RMVL TUBE OVARY Hysterectomy - (Added by Conv) IA COLECTOMY PARTIAL W/ANASTOMOSIS Partial Colectomy - (Added [...] on file Legal Sex Female 8:35 PM LEAD COOK Gender Identity Female 01/25/2022 6:38 PM CDT [...] ED Urgent/IP Urgent 08/08/2024 4:30 PM CDT SENIOR OFFICER EVALUATE AND TREAT CLINICAL SWALLOW Routine 08/08/2024 [...] Results * eGFR (08/18/2024 4:31 AM CDT) [facility] eGFR 68 >=60 mL/min/1. 73 m2 Comment: [...] MD LAB BLOOD ORDERABLES Final Res ult [facility] [address] [facility] Department [place] [address] * (ABNORMAL) Differential, auto (08/18/2024 4:31 AM CDT) Neutrophil abs 4.08 1.50 - 6.50 K/cumm Imm gran abs 0.12(H) 0.00 - 0.10 K/cumm [facility] Lymphocyte abs 1.67 0.80 - 3.30 K/cumm [facility] Monocyte abs 0.60 0.20 - 0.80 K/cumm [facility] Eosinophil abs 0.26 0.00 - 0.50 K/cumm [facility] Basophil abs 0.05 0.00 - 0.10 K/cumm [facility] Neutrophil pct 60.3 % [facility] Comment: Interpretive Data Percent cell count reference ranges are not reported, since discordance with absolute values may lead to misinterpretation of CBC data. Current Interpretive Data was last revised on 2017. Imm gran pct 1.8 % [facility] Comment: Interpretive Data Percent cell count reference ranges are not reported, since discordance with absolute values may lead to misinterpretation of CBC data. Current Interpretive Data was last revised on 2017. Lymphocyte pct 24.6 % [facility] Comment: Interpretive Data Percent cell count reference ranges are not reported, since discordance with absolute values may lead to misinterpretation of CBC data. Current Interpretive Data was last revised on 2017. Monocyte pct 8.8 % [facility] Comment: Interpretive Data Percent cell count reference ranges are not reported, since discordance with absolute values may lead to misinterpretation of CBC data. Current Interpretive Data was last revised on 2017. Eosinophil pct 3.8 % [facility] Comment: Interpretive Data Percent cell count reference ranges are not reported, since discordance with absolute values may lead to misinterpretation of CBC data. Current Interpretive Data was last revised on 2017. Basophil pct 0.7 % [facility] Comment: Interpretive Data Percent cell count reference ranges are not reported, since discordance with absolute values may lead to misinterpretation of CBC data. Current Interpretive Data was last revised on 2017. Blood 08/18/2024 4:31 AM CDT 08/18/2024 5:29 AM CDT Rocio Mccarthy MD LAB BLOOD ORDERABLES Final Res ult [facility] Department [place] [address] * (ABNORMAL) CBC with auto differential (08/18/2024 4:31 AM CDT) WBC 6.78 3.80 - 9.90 K/cumm Hgb 7.8(L) 11.9 - 15.5 g/dL [facility] Hct 24.7(L) 35.6 - 45.5 % [facility] Plt 427(H) 150 - 400 K/cumm [facility] MPV 9.3 9.1 - 12.3 fL [facility] RBC 3.67(L) 3.90 - 5.20 M/cumm [facility] MCV 67.3(L) 81.3 - 96.4 fL [facility] MCH 21.3(L) 27.1 - 33.3 pg [facility] MCHC 31.6(L) 32.3 - 35.7 g/dL [facility] RDW CV 18.5(H) 11.1 - 14.9 % [facility] RDW SD 43.8 35.7 - 48.1 fL [facility] NRBC abs 0.00 0.00 - 0.01 K/cumm [facility] Blood 08/18/2024 4:31 AM CDT 08/18/2024 5:29 AM CDT Rocio Mccarthy MD LAB BLOOD ORDERABLES Final Res ult [facility] Department [place] [address] * (ABNORMAL) Basic metabolic panel (08/18/2024 4:31 AM CDT) Sodium 140 135 - 145 mmol/L Potassium, pl 4.9 3.3 - 4.9 mmol/L [facility] Chloride 105 97 - 110 mmol/L [facility] CO2 28 22 - 32 mmol/L [facility] Anion gap 7 2 - 15 mmol/L [facility] BUN 33(H) 6 - 25 mg/dL [facility] Creatinine 0.83 0.60 - 1.10 mg/dL [facility] Glucose 103 70 - 199 mg/dL [facility] Comment: Interpretive Data Fasting glucose >/= [...] 2022. Calcium 9.0 8.5 - 10.3 mg/dL [facility] Blood 08/18/2024 4:31 AM CDT 08/18/2024 5:29 AM CDT us Rocio Mccarthy MD LAB BLOOD ORDERABLES Final Res ult Performing Organization Address City/[facility]/ZIP Co de Phone Number [facility] Department [place] [address] * eGFR (08/17/2024 4:41 AM CDT) eGFR [...] MD LAB BLOOD ORDERABLES Final Res ult [facility] Department [place] [address] * (ABNORMAL) Differential, auto (08/17/2024 4:41 AM CDT) Neutrophil abs 4.12 1.50 - 6.50 K/cumm Imm gran abs 0.16(H) 0.00 - 0.10 K/cumm [facility] Lymphocyte abs 1.98 0.80 - 3.30 K/cumm [facility] Monocyte abs 0.61 0.20 - 0.80 K/cumm [facility] Eosinophil abs 0.22 0.00 - 0.50 K/cumm [facility] Basophil abs 0.06 0.00 - 0.10 K/cumm [facility] Neutrophil pct 57.7 % [facility] Comment: Interpretive Data Percent cell count reference ranges are not reported, since discordance with absolute values may lead to misinterpretation of CBC data. Current Interpretive Data was last revised on 2017. Imm gran pct 2.2 % [facility] Comment: Interpretive Data Percent cell count reference ranges are not reported, since discordance with absolute values may lead to misinterpretation of CBC data. Current Interpretive Data was last revised on 2017. Lymphocyte pct 27.7 % [facility] Comment: Interpretive Data Percent cell count reference ranges are not reported, since discordance with absolute values may lead to misinterpretation of CBC data. Current Interpretive Data was last revised on 2017. Monocyte pct 8.5 % [facility] Comment: Interpretive Data Percent cell count reference ranges are not reported, since discordance with absolute values may lead to misinterpretation of CBC data. Current Interpretive Data was last revised on 2017. Eosinophil pct 3.1 % [facility] Comment: Interpretive Data Percent cell count reference ranges are not reported, since discordance with absolute values may lead to misinterpretation of CBC data. Current Interpretive Data was last revised on 2017. Basophil pct 0.8 % [facility] Comment: Interpretive Data Percent cell count reference ranges are not reported, since discordance with absolute values may lead to misinterpretation of CBC data. Current Interpretive Data was last revised on 2017. Blood 08/17/2024 4:41 AM CDT 08/17/2024 5:33 AM CDT Rocio Mccarthy MD LAB BLOOD ORDERABLES Final Res ult [facility] Department [place] [address] * (ABNORMAL) CBC with auto differential (08/17/2024 4:41 AM CDT) WBC 7.15 3.80 - 9.90 K/cumm Hgb 7.9(L) 11.9 - 15.5 g/dL [facility] Hct 25.3(L) 35.6 - 45.5 % [facility] Plt 419(H) 150 - 400 K/cumm [facility] MPV 9.5 9.1 - 12.3 fL [facility] RBC 3.75(L) 3.90 - 5.20 M/cumm [facility] MCV 67.5(L) 81.3 - 96.4 fL [facility] MCH 21.1(L) 27.1 - 33.3 pg [facility] MCHC 31.2(L) 32.3 - 35.7 g/dL [facility] RDW CV 18.5(H) 11.1 - 14.9 % [facility] RDW SD 43.8 35.7 - 48.1 fL [facility] NRBC abs 0.00 0.00 - 0.01 K/cumm [facility] Blood 08/17/2024 4:41 AM CDT 08/17/2024 5:33 AM CDT Rocio Mccarthy MD LAB BLOOD ORDERABLES Final Res ult [facility] Department [place] [address] * (ABNORMAL) Basic metabolic panel (08/17/2024 4:41 AM CDT) Sodium 139 135 - 145 mmol/L Potassium, pl 5.0(H) 3.3 - 4.9 mmol/L [facility] Chloride 106 97 - 110 mmol/L [facility] CO2 28 22 - 32 mmol/L [facility] Anion gap 5 2 - 15 mmol/L [facility] BUN 38(H) 6 - 25 mg/dL [facility] Creatinine 0.78 0.60 - 1.10 mg/dL [facility] Glucose 80 70 - 199 mg/dL [facility] Comment: Interpretive Data Fasting glucose >/= [...] 2022. Calcium 8.7 8.5 - 10.3 mg/dL [facility] Blood 08/17/2024 4:41 AM CDT 08/17/2024 6:12 AM CDT us Rocio Mccarthy MD LAB BLOOD ORDERABLES Final Res ult [facility] [address] [facility] Department [place] [address] * eGFR (08/16/2024 3:57 AM CDT) eGFR [...] MD LAB BLOOD ORDERABLES Final Res ult [facility] Department [place] [address] * (ABNORMAL) Differential, auto (08/16/2024 3:57 AM CDT) Neutrophil abs 4.08 1.50 - 6.50 K/cumm Imm gran abs 0.19(H) 0.00 - 0.10 K/cumm [facility] Lymphocyte abs 1.86 0.80 - 3.30 K/cumm [facility] Monocyte abs 0.73 0.20 - 0.80 K/cumm [facility] Eosinophil abs 0.22 0.00 - 0.50 K/cumm [facility] Basophil abs 0.04 0.00 - 0.10 K/cumm [facility] Neutrophil pct 57.2 % [facility] Comment: Interpretive Data Percent cell count reference ranges are not reported, since discordance with absolute values may lead to misinterpretation of CBC data. Current Interpretive Data was last revised on 2017. Imm gran pct 2.7 % [facility] Comment: Interpretive Data Percent cell count reference ranges are not reported, since discordance with absolute values may lead to misinterpretation of CBC data. Current Interpretive Data was last revised on 2017. Lymphocyte pct 26.1 % [facility] Comment: Interpretive Data Percent cell count reference ranges are not reported, since discordance with absolute values may lead to misinterpretation of CBC data. Current Interpretive Data was last revised on 2017. Monocyte pct 10.3 % [facility] Comment: Interpretive Data Percent cell count reference ranges are not reported, since discordance with absolute values may lead to misinterpretation of CBC data. Current Interpretive Data was last revised on 2017. Eosinophil pct 3.1 % [facility] Comment: Interpretive Data Percent cell count reference ranges are not reported, since discordance with absolute values may lead to misinterpretation of CBC data. Current Interpretive Data was last revised on 2017. Basophil pct 0.6 % [facility] Comment: Interpretive Data Percent cell count reference ranges are not reported, since discordance with absolute values may lead to misinterpretation of CBC data. Current Interpretive Data was last revised on 2017. Blood 08/16/2024 3:57 AM CDT 08/16/2024 4:56 AM CDT Rocio Mccarthy MD LAB BLOOD ORDERABLES Final Res ult [facility] Department [place] [address] * (ABNORMAL) CBC with auto differential (08/16/2024 3:57 AM CDT) WBC 7.12 3.80 - 9.90 K/cumm Hgb 8.2(L) 11.9 - 15.5 g/dL [facility] Hct 26.5(L) 35.6 - 45.5 % [facility] Plt 431(H) 150 - 400 K/cumm [facility] MPV 10.0 9.1 - 12.3 fL [facility] RBC 3.91 3.90 - 5.20 M/cumm [facility] MCV 67.8(L) 81.3 - 96.4 fL [facility] MCH 21.0(L) 27.1 - 33.3 pg [facility] MCHC 30.9(L) 32.3 - 35.7 g/dL [facility] RDW CV 18.8(H) 11.1 - 14.9 % [facility] RDW SD 44.3 35.7 - 48.1 fL [facility] NRBC abs 0.00 0.00 - 0.01 K/cumm [facility] Blood 08/16/2024 3:57 AM CDT 08/16/2024 4:56 AM CDT Rocio Mccarthy MD LAB BLOOD ORDERABLES Final Res ult Performing Organization Address City/[facility]/ZIP Co de Phone Number [facility] [place] [address] * (ABNORMAL) Basic metabolic panel (08/16/2024 3:57 AM CDT) [facility] Sodium 142 135 - 145 mmol/L Potassium, pl 5.3(H) 3.3 - 4.9 mmol/L [facility] Chloride 109 97 - 110 mmol/L [facility] CO2 29 22 - 32 mmol/L [facility] Anion gap 4 2 - 15 mmol/L [facility] BUN 34(H) 6 - 25 mg/dL [facility] Creatinine 0.86 0.60 - 1.10 mg/dL [facility] Glucose 94 70 - 199 mg/dL [facility] Comment: Interpretive Data Fasting glucose >/= [...] 2022. Calcium 8.9 8.5 - 10.3 mg/dL [facility] Blood 08/16/2024 3:57 AM CDT 08/16/2024 4:55 AM CDT Rocio Mccarthy MD LAB BLOOD ORDERABLES Final Res ult Performing Organization Address [facility]/ZIP Co de Phone Number [facility] [place] [address] * eGFR (08/15/2024 4:14 AM CDT) eGFR [...] MD LAB BLOOD ORDERABLES Final Res ult [facility] Department [place] [address] * (ABNORMAL) Differential, auto (08/15/2024 4:14 AM CDT) Pathologist [facility] Neutrophil abs 4.84 1.50 - 6.50 K/cumm Imm gran abs 0.17(H) 0.00 - 0.10 K/cumm [facility] Lymphocyte abs 1.67 0.80 - 3.30 K/cumm [facility] Monocyte abs 0.81(H) 0.20 - 0.80 K/cumm [facility] Eosinophil abs 0.25 0.00 - 0.50 K/cumm [facility] Basophil abs 0.05 0.00 - 0.10 K/cumm [facility] Neutrophil pct 62.2 % [facility] Comment: Interpretive Data Percent cell count reference ranges are not reported, since discordance with absolute values may lead to misinterpretation of CBC data. Current Interpretive Data was last revised on 2017. Imm gran pct 2.2 % [facility] Comment: Interpretive Data Percent cell count reference ranges are not reported, since discordance with absolute values may lead to misinterpretation of CBC data. Current Interpretive Data was last revised on 2017. Lymphocyte pct 21.4 % [facility] Comment: Interpretive Data Percent cell count reference ranges are not reported, since discordance with absolute values may lead to misinterpretation of CBC data. Current Interpretive Data was last revised on 2017. Monocyte pct 10.4 % [facility] Comment: Interpretive Data Percent cell count reference ranges are not reported, since discordance with absolute values may lead to misinterpretation of CBC data. Current Interpretive Data was last revised on 2017. Eosinophil pct 3.2 % [facility] Comment: Interpretive Data Percent cell count reference ranges are not reported, since discordance with absolute values may lead to misinterpretation of CBC data. Current Interpretive Data was last revised on 2017. Basophil pct 0.6 % [facility] Comment: Interpretive Data Percent cell count reference ranges are not reported, since discordance with absolute values may lead to misinterpretation of CBC data. Current Interpretive Data was last revised on 2017. Blood 08/15/2024 4:14 AM CDT 08/15/2024 4:53 AM CDT us Rocio Mccarthy MD LAB BLOOD ORDERABLES Final Res ult [facility] Department [place] [address] * (ABNORMAL) CBC with auto differential (08/15/2024 4:14 AM CDT) WBC 7.79 3.80 - 9.90 K/cumm Hgb 8.2(L) 11.9 - 15.5 g/dL [facility] Hct 25.5(L) 35.6 - 45.5 % [facility] Plt 369 150 - 400 K/cumm [facility] MPV 9.9 9.1 - 12.3 fL [facility] RBC 3.82(L) 3.90 - 5.20 M/cumm [facility] MCV 66.8(L) 81.3 - 96.4 fL [facility] MCH 21.5(L) 27.1 - 33.3 pg [facility] MCHC 32.2(L) 32.3 - 35.7 g/dL [facility] RDW CV 18.7(H) 11.1 - 14.9 % [facility] RDW SD 43.8 35.7 - 48.1 fL [facility] NRBC abs 0.00 0.00 - 0.01 K/cumm [facility] Blood 08/15/2024 4:14 AM CDT 08/15/2024 4:53 AM CDT Rocio Mccarthy MD LAB BLOOD ORDERABLES Final Res ult [facility] Department [place] [address] * (ABNORMAL) Basic metabolic panel (08/15/2024 4:14 AM CDT) Sodium 140 135 - 145 mmol/L Potassium, pl 4.8 3.3 - 4.9 mmol/L [facility] Chloride 108 97 - 110 mmol/L [facility] CO2 28 22 - 32 mmol/L [facility] Anion gap 4 2 - 15 mmol/L [facility] BUN 30(H) 6 - 25 mg/dL [facility] Creatinine 0.71 0.60 - 1.10 mg/dL [facility] Glucose 84 70 - 199 mg/dL [facility] Comment: Interpretive Data Fasting glucose >/= [...] 2022. Calcium 8.7 8.5 - 10.3 mg/dL [facility] Blood 08/15/2024 4:14 AM CDT 08/15/2024 4:53 AM CDT us Rocio Mccarthy MD LAB BLOOD ORDERABLES Final Res ult Performing Organization Address [facility]/ZIP Co de Phone Number [facility] Department [place] [address] * eGFR (08/13/2024 9:03 PM CDT) eGFR [...] ORDERABLES Final Re sult [facility] Department [place] [address] * (ABNORMAL) Differential, auto (08/13/2024 9:03 PM CDT) Neutrophil abs 7.71(H) 1.50 - 6.50 K/cumm Imm gran abs 0.14(H) 0.00 - 0.10 K/cumm [facility] Lymphocyte abs 0.99 0.80 - 3.30 K/cumm [facility] Monocyte abs 1.07(H) 0.20 - 0.80 K/cumm [facility] Eosinophil abs 0.32 0.00 - 0.50 K/cumm [facility] Basophil abs 0.07 0.00 - 0.10 K/cumm [facility] Neutrophil pct 74.8 % [facility] Comment: Interpretive Data Percent cell count reference ranges are not reported, since discordance with absolute values may lead to misinterpretation of CBC data. Current Interpretive Data was last revised on 2017. Imm gran pct 1.4 % [facility] Comment: Interpretive Data Percent cell count reference ranges are not reported, since discordance with absolute values may lead to misinterpretation of CBC data. Current Interpretive Data was last revised on 2017. Lymphocyte pct 9.6 % [facility] Comment: Interpretive Data Percent cell count reference ranges are not reported, since discordance with absolute values may lead to misinterpretation of CBC data. Current Interpretive Data was last revised on 2017. Monocyte pct 10.4 % [facility] Comment: Interpretive Data Percent cell count reference ranges are not reported, since discordance with absolute values may lead to misinterpretation of CBC data. Current Interpretive Data was last revised on 2017. Eosinophil pct 3.1 % [facility] Comment: Interpretive Data Percent cell count reference ranges are not reported, since discordance with absolute values may lead to misinterpretation of CBC data. Current Interpretive Data was last revised on 2017. Basophil pct 0.7 % [facility] Comment: Interpretive Data Percent cell count reference ranges are not reported, since discordance with absolute values may lead to misinterpretation of CBC data. Current Interpretive Data was last revised on 2017. Blood 08/13/2024 9:03 PM CDT 08/13/2024 10:19 PM CDT Bing Gong MD LAB BLOOD ORDERABLES Final Re sult Performing Organization Address [facility] Co de Phone Number [facility] Department [place] [address] * (ABNORMAL) CBC with auto differential (08/13/2024 9:03 PM CDT) WBC 10.30(H) 3.80 - 9.90 K/cumm Hgb 7.9(L) 11.9 - 15.5 g/dL [facility] Hct 25.3(L) 35.6 - 45.5 % [facility] Plt 330 150 - 400 K/cumm [facility] MPV 9.6 9.1 - 12.3 fL [facility] RBC 3.73(L) 3.90 - 5.20 M/cumm [facility] MCV 67.8(L) 81.3 - 96.4 fL [facility] MCH 21.2(L) 27.1 - 33.3 pg [facility] MCHC 31.2(L) 32.3 - 35.7 g/dL [facility] RDW CV 18.8(H) 11.1 - 14.9 % [facility] RDW SD 44.5 35.7 - 48.1 fL [facility] NRBC abs 0.00 0.00 - 0.01 K/cumm [facility] Blood 08/13/2024 9:03 PM CDT 08/13/2024 10:19 PM CDT Bing Gong MD LAB BLOOD ORDERABLES Final Re sult Performing Organization Address [facility]/ZIP Co de Phone Number [facility] Department [place] [address] * (ABNORMAL) Basic metabolic panel (08/13/2024 9:03 PM CDT) Pathologist [facility] Sodium 142 135 - 145 mmol/L Potassium, pl 4.4 3.3 - 4.9 mmol/L [facility] Chloride 108 97 - 110 mmol/L [facility] CO2 26 22 - 32 mmol/L [facility] Anion gap 8 2 - 15 mmol/L [facility] BUN 46(H) 6 - 25 mg/dL [facility] Creatinine 0.88 0.60 - 1.10 mg/dL [facility] Glucose 108 70 - 199 mg/dL [facility] Comment: Interpretive Data Fasting glucose >/= [...] 2022. Calcium 8.4(L) 8.5 - 10.3 mg/dL [facility] Blood 08/13/2024 9:03 PM CDT 08/13/2024 10:19 PM CDT us Bing Gong MD LAB BLOOD ORDERABLES Final Re sult [facility] Department [place] [address] * (ABNORMAL) eGFR (08/12/2024 8:56 PM CDT) Pathologist [facility] eGFR 40(L) >=60 mL/min/1. 73 m2 Comment: [...] MD LAB BLOOD ORDERABLES Final Re sult [facility] Department [place] [address] * (ABNORMAL) Differential, auto (08/12/2024 8:56 PM CDT) Neutrophil abs 7.3(H) 1.5 - 6.5 K/cumm Imm gran abs 0.1 0.0 - 0.1 K/cumm [facility] Lymphocyte abs 0.9 0.8 - 3.3 K/cumm [facility] Monocyte abs 0.7 0.2 - 0.8 K/cumm [facility] Eosinophil abs 0.3 0.0 - 0.5 K/cumm [facility] Basophil abs 0.1 0.0 - 0.1 K/cumm [facility] Neutrophil pct 78.8 % [facility] Comment: Interpretive Data Percent cell count reference ranges are not reported, since discordance with absolute values may lead to misinterpretation of CBC data. Current Interpretive Data was last revised on 2017. Imm gran pct 1.0 % [facility] Comment: Interpretive Data Percent cell count reference ranges are not reported, since discordance with absolute values may lead to misinterpretation of CBC data. Current Interpretive Data was last revised on 2017. Lymphocyte pct 9.7 % [facility] Comment: Interpretive Data Percent cell count reference ranges are not reported, since discordance with absolute values may lead to misinterpretation of CBC data. Current Interpretive Data was last revised on 2017. Monocyte pct 7.1 % [facility] Comment: Interpretive Data Percent cell count reference ranges are not reported, since discordance with absolute values may lead to misinterpretation of CBC data. Current Interpretive Data was last revised on 2017. Eosinophil pct 2.9 % [facility] Comment: Interpretive Data Percent cell count reference ranges are not reported, since discordance with absolute values may lead to misinterpretation of CBC data. Current Interpretive Data was last revised on 2017. Basophil pct 0.5 % [facility] Comment: Interpretive Data Percent cell count reference ranges are not reported, since discordance with absolute values may lead to misinterpretation of CBC data. Current Interpretive Data was last revised on 2017. Blood 08/12/2024 8:56 PM CDT 08/12/2024 9:59 PM CDT us Bing Gong MD LAB BLOOD ORDERABLES Final Re sult [facility] Department [place] [address] * (ABNORMAL) CBC with auto differential (08/12/2024 8:56 PM CDT) WBC 9.3 3.8 - 9.9 K/cumm Hgb 7.9(L) 11.9 - 15.5 g/dL [facility] Hct 25.3(L) 35.6 - 45.5 % [facility] Plt 314 150 - 400 K/cumm [facility] MPV 10.2 9.1 - 12.3 fL [facility] RBC 3.74(L) 3.90 - 5.20 M/cumm [facility] MCV 67.6(L) 81.3 - 96.4 fL [facility] MCH 21.1(L) 27.1 - 33.3 pg [facility] MCHC 31.2(L) 32.3 - 35.7 g/dL [facility] RDW CV 19.3(H) 11.1 - 14.9 % [facility] RDW SD 44.0 35.7 - 48.1 fL [facility] NRBC abs 0.00 0.00 - 0.01 K/cumm [facility] Blood 08/12/2024 8:56 PM CDT 08/12/2024 9:59 PM CDT us Bing Gong MD LAB BLOOD ORDERABLES Final Re sult [facility] Department [place] [address] * (ABNORMAL) Basic metabolic panel (08/12/2024 8:56 PM CDT) Sodium 137 135 - 145 mmol/L Potassium, pl 4.7 3.3 - 4.9 mmol/L [facility] Comment:Hemolyzed; Potassium value may be falsely elevated by as much as 0.6-1.0 mmol/L. Suggest redraw and reanalysis. Chloride 101 97 - 110 mmol/L [facility] CO2 25 22 - 32 mmol/L [facility] Anion gap 11 2 - 15 mmol/L [facility] BUN 57(H) 6 - 25 mg/dL [facility] Creatinine 1.29(H) 0.60 - 1.10 mg/dL [facility] Glucose 93 70 - 199 mg/dL [facility] Comment: Interpretive Data Fasting glucose >/= [...] 2022. Calcium 8.6 8.5 - 10.3 mg/dL [facility] Blood 08/12/2024 8:56 PM CDT 08/12/2024 9:58 PM CDT Bing Gong MD LAB BLOOD ORDERABLES Final Re sult Performing Organization Address [facility] Co de Phone Number [facility] [place] [address] * (ABNORMAL) eGFR (08/12/2024 12:23 AM CDT) [...] ORDERABLES Final Re sult Performing Organization Address City/[facility]/ZIP Co de Phone Number [facility] Department [place] [address] * (ABNORMAL) Differential, auto (08/12/2024 12:23 AM CDT) Neutrophil abs 8.5(H) 1.5 - 6.5 K/cumm Imm gran abs 0.1 0.0 - 0.1 K/cumm [facility] Lymphocyte abs 0.6(L) 0.8 - 3.3 K/cumm [facility] Monocyte abs 1.0(H) 0.2 - 0.8 K/cumm [facility] Eosinophil abs 0.2 0.0 - 0.5 K/cumm [facility] Basophil abs 0.1 0.0 - 0.1 K/cumm [facility] Neutrophil pct 81.9 % [facility] Comment: Interpretive Data Percent cell count reference ranges are not reported, since discordance with absolute values may lead to misinterpretation of CBC data. Current Interpretive Data was last revised on 2017. Imm gran pct 0.8 % [facility] Comment: Interpretive Data Percent cell count reference ranges are not reported, since discordance with absolute values may lead to misinterpretation of CBC data. Current Interpretive Data was last revised on 2017. Lymphocyte pct 6.0 % [facility] Comment: Interpretive Data Percent cell count reference ranges are not reported, since discordance with absolute values may lead to misinterpretation of CBC data. Current Interpretive Data was last revised on 2017. Monocyte pct 9.2 % [facility] Comment: Interpretive Data Percent cell count reference ranges are not reported, since discordance with absolute values may lead to misinterpretation of CBC data. Current Interpretive Data was last revised on 2017. Eosinophil pct 1.6 % [facility] Comment: Interpretive Data Percent cell count reference ranges are not reported, since discordance with absolute values may lead to misinterpretation of CBC data. Current Interpretive Data was last revised on 2017. Basophil pct 0.5 % [facility] Comment: Interpretive Data Percent cell count reference ranges are not reported, since discordance with absolute values may lead to misinterpretation of CBC data. Current Interpretive Data was last revised on 2017. Blood 08/12/2024 12:2 3 AM CDT 08/12/2024 12:52 AM CDT Bing Gong MD LAB BLOOD ORDERABLES Final Re sult [facility] Department [place] [address] * (ABNORMAL) CBC with auto differential (08/12/2024 12:23 AM CDT) [facility] WBC 10.3(H) 3.8 - 9.9 K/cumm Hgb 8.3(L) 11.9 - 15.5 g/dL [facility] Hct 26.8(L) 35.6 - 45.5 % [facility] Plt 294 150 - 400 K/cumm [facility] MPV 10.0 9.1 - 12.3 fL [facility] RBC 3.98 3.90 - 5.20 M/cumm [facility] MCV 67.3(L) 81.3 - 96.4 fL [facility] MCH 20.9(L) 27.1 - 33.3 pg [facility] MCHC 31.0(L) 32.3 - 35.7 g/dL [facility] RDW CV 18.4(H) 11.1 - 14.9 % [facility] RDW SD 43.4 35.7 - 48.1 fL [facility] NRBC abs 0.00 0.00 - 0.01 K/cumm [facility] Blood 08/12/2024 12:2 3 AM CDT 08/12/2024 12:52 AM CDT Bing Gong MD LAB BLOOD ORDERABLES Final Re sult [facility] Department [place] [address] * (ABNORMAL) Basic metabolic panel (08/12/2024 12:23 AM CDT) [facility] Sodium 139 135 - 145 mmol/L Potassium, pl 4.9 3.3 - 4.9 mmol/L [facility] Chloride 105 97 - 110 mmol/L [facility] CO2 26 22 - 32 mmol/L [facility] Anion gap 8 2 - 15 mmol/L [facility] BUN 57(H) 6 - 25 mg/dL [facility] Creatinine 1.15(H) 0.60 - 1.10 mg/dL [facility] Glucose 117 70 - 199 mg/dL [facility] Comment: Interpretive Data Fasting glucose >/= [...] 2022. Calcium 9.0 8.5 - 10.3 mg/dL [facility] Blood 08/12/2024 12:2 3 AM CDT 08/12/2024 12:52 AM CDT us Bing Gong MD LAB BLOOD ORDERABLES Final Re sult [facility] Department [place] [address] * CT Facial Bones W WO Contrast [...] g/dL Hct 26.4(L) 35.6 - 45.5 % [facility] Blood 08/11/2024 9:37 AM CDT 08/11/2024 10:33 AM CDT Bing Gong MD LAB BLOOD ORDERABLES Final Re sult Performing Organization Address [facility] Co de Phone Number [facility] [place] [address] * Type and screen (08/11/2024 9:37 AM CDT) ABO Rh O Positive Tatiana, indirect Negative [facility] Blood 08/11/2024 9:37 AM CDT 08/11/2024 10:26 AM CDT Narrative [facility] - 08/11/2024 11:38 AM CDT Has the patient had Daratumumab or Isatuximab in the past 6 months?->Unknown Bing Gong MD LAB BLOOD BANK TEST ORDERABLE S Final Result Performing Organization Address [facility] Co de Phone Number [facility] [place] [address] * (ABNORMAL) eGFR (08/11/2024 3:26 AM CDT) [...] MD LAB BLOOD ORDERABLES Final Re sult [facility] Department [place] [address] * Differential, auto (08/11/2024 3:26 AM CDT) Pathologist [facility] Neutrophil abs 3.5 1.5 - 6.5 K/cumm Imm gran abs 0.1 0.0 - 0.1 K/cumm [facility] Lymphocyte abs 1.1 0.8 - 3.3 K/cumm [facility] Monocyte abs 0.6 0.2 - 0.8 K/cumm [facility] Eosinophil abs 0.2 0.0 - 0.5 K/cumm [facility] Basophil abs 0.0 0.0 - 0.1 K/cumm [facility] Neutrophil pct 64.0 % [facility] Comment: Interpretive Data Percent cell count reference ranges are not reported, since discordance with absolute values may lead to misinterpretation of CBC data. Current Interpretive Data was last revised on 2017. Imm gran pct 0.9 % [facility] Comment: Interpretive Data Percent cell count reference ranges are not reported, since discordance with absolute values may lead to misinterpretation of CBC data. Current Interpretive Data was last revised on 2017. Lymphocyte pct 20.4 % [facility] Comment: Interpretive Data Percent cell count reference ranges are not reported, since discordance with absolute values may lead to misinterpretation of CBC data. Current Interpretive Data was last revised on 2017. Monocyte pct 11.1 % [facility] Comment: Interpretive Data Percent cell count reference ranges are not reported, since discordance with absolute values may lead to misinterpretation of CBC data. Current Interpretive Data was last revised on 2017. Eosinophil pct 3.0 % [facility] Comment: Interpretive Data Percent cell count reference ranges are not reported, since discordance with absolute values may lead to misinterpretation of CBC data. Current Interpretive Data was last revised on 2017. Basophil pct 0.6 % [facility] Comment: Interpretive Data Percent cell count reference ranges are not reported, since discordance with absolute values may lead to misinterpretation of CBC data. Current Interpretive Data was last revised on 2017. Blood 08/11/2024 3:26 AM CDT 08/11/2024 4:29 AM CDT us Bing Gong MD LAB BLOOD ORDERABLES Final Re sult [facility] Department [place] [address] * (ABNORMAL) CBC with auto differential (08/11/2024 3:26 AM CDT) WBC 5.4 3.8 - 9.9 K/cumm Hgb 7.6(L) 11.9 - 15.5 g/dL [facility] Hct 24.2(L) 35.6 - 45.5 % [facility] Plt 262 150 - 400 K/cumm [facility] MPV 10.1 9.1 - 12.3 fL [facility] RBC 3.59(L) 3.90 - 5.20 M/cumm [facility] MCV 67.4(L) 81.3 - 96.4 fL [facility] MCH 21.2(L) 27.1 - 33.3 pg [facility] MCHC 31.4(L) 32.3 - 35.7 g/dL [facility] RDW CV 18.1(H) 11.1 - 14.9 % [facility] RDW SD 43.5 35.7 - 48.1 fL [facility] NRBC abs 0.00 0.00 - 0.01 K/cumm [facility] Blood 08/11/2024 3:26 AM CDT 08/11/2024 4:29 AM CDT Bing Gong MD LAB BLOOD ORDERABLES Final Re sult Performing Organization Address [facility] de Phone Number MARYLU [facility] [place] [address] * (ABNORMAL) Vitamin D 25 hydroxy (08/11/2024 3:26 AM CDT) Pathologist [facility] Vitamin D 25-OH 22(L) 30 - 80 ng/mL Blood 08/11/2024 3:26 AM CDT 08/11/2024 4:29 AM CDT Bing Gong MD LAB BLOOD ORDERABLES Final Re sult Performing Organization Address [facility] de Phone Number [facility] [place] [address] * Vitamin B1 (08/11/2024 3:26 AM CDT) [facility] Thiamine (Vit B1) 92 70 - 180 nmol/L [facility] Comment: ADDITIONAL INFORMATION This test was developed and its performance characteristics determined by [facility] in a manner consistent with CLIA requirements. This test has not been cleared or approved by the U.S. Food and Drug Administration. Test Performed by: [facility] [place] [id number] Heel Room Supervisor: Karla Egan Ph.D.; CLIA# [id number] Blood 08/11/2024 3:26 AM CDT 08/11/2024 4:19 AM CDT Bing Gong MD LAB BLOOD ORDERABLES Final Re sult Performing Organization Address [facility] de Phone Number [facility] Department [place] [address] [facility] * (ABNORMAL) Vitamin B6 (08/11/2024 3:26 AM CDT) [facility] Pyridoxal phosphate (Vit B6) 3(L) 5 - 50 mcg/L [facility] Comment: ADDITIONAL INFORMATION This test was developed and its performance characteristics determined by [facility] in a manner consistent with CLIA requirements. This test has not been cleared or approved by the U.S. Food and Drug Administration. Test Performed by: [place] [address] Heel Room Supervisor: Karla Egan Ph.D.; CLIA# [id number] Blood 08/11/2024 3:26 AM CDT 08/11/2024 4:19 AM CDT us Bing Gong MD LAB BLOOD ORDERABLES Final Re sult [facility] Department [place] [address] [facility] * (ABNORMAL) Basic metabolic panel (08/11/2024 3:26 AM CDT) [facility] Sodium 140 135 - 145 mmol/L Potassium, pl 4.5 3.3 - 4.9 mmol/L [facility] Chloride 105 97 - 110 mmol/L [facility] CO2 28 22 - 32 mmol/L [facility] Anion gap 7 2 - 15 mmol/L [facility] BUN 39(H) 6 - 25 mg/dL [facility] Creatinine 0.97 0.60 - 1.10 mg/dL [facility] Glucose 88 70 - 199 mg/dL [facility] Comment: Interpretive Data Fasting glucose >/= [...] 2022. Calcium 8.6 8.5 - 10.3 mg/dL [facility] Blood 08/11/2024 3:26 AM CDT 08/11/2024 4:29 AM CDT Bing Gong MD LAB BLOOD ORDERABLES Final Re sult Performing Organization Address [facility] de Phone Number [facility] Department [place] [address] * (ABNORMAL) POCT glucose (08/10/2024 11:31 AM CDT) Glucose, POC 206(H) 70 - 199 mg/dL Blood 08/10/2024 11:3 1 AM CDT 08/10/2024 11:31 AM CDT Bing Gong MD LAB POCT ORDERABLES - DEVICE Final Result Performing Organization Address [facility] de Phone Number [facility] Department [place] [address] * (ABNORMAL) Hemoglobin and hematocrit (08/10/2024 9:46 AM CDT) Hgb 8.4(L) 11.9 - 15.5 g/dL Hct 26.3(L) 35.6 - 45.5 % [facility] Blood 08/10/2024 9:46 AM CDT 08/10/2024 10:21 AM CDT Bing Gong MD LAB BLOOD ORDERABLES Final Re sult Performing Organization Address [facility] Co de Phone Number [facility] [place] [facility] Department [place] [address] * POCT glucose (08/10/2024 7:43 AM CDT) Glucose, POC 99 70 - 199 mg/dL Blood 08/10/2024 7:43 AM CDT 08/10/2024 7:43 AM CDT us Bing Gong MD LAB POCT ORDERABLES - DEVICE Final Result Performing Organization Address [facility] de Phone Number MARYLU [facility] [place] [address] * eGFR (08/10/2024 3:31 AM CDT) Pathologist [facility] eGFR 71 >=60 mL/min/1. 73 m2 Comment: [...] Final Result Performing Organization Address [facility] Co de Phone Number [facility] [place] [facility] Department [place] [address] * (ABNORMAL) Differential, auto (08/10/2024 3:31 AM CDT) Neutrophil abs 6.9(H) 1.5 - 6.5 K/cumm Imm gran abs 0.1 0.0 - 0.1 K/cumm [facility] Lymphocyte abs 1.1 0.8 - 3.3 K/cumm [facility] Monocyte abs 0.9(H) 0.2 - 0.8 K/cumm [facility] Eosinophil abs 0.2 0.0 - 0.5 K/cumm [facility] Basophil abs 0.0 0.0 - 0.1 K/cumm [facility] Neutrophil pct 75.2 % [facility] Comment: Interpretive Data Percent cell count reference ranges are not reported, since discordance with absolute values may lead to misinterpretation of CBC data. Current Interpretive Data was last revised on 2017. Imm gran pct 0.5 % [facility] Comment: Interpretive Data Percent cell count reference ranges are not reported, since discordance with absolute values may lead to misinterpretation of CBC data. Current Interpretive Data was last revised on 2017. Lymphocyte pct 12.4 % [facility] Comment: Interpretive Data Percent cell count reference ranges are not reported, since discordance with absolute values may lead to misinterpretation of CBC data. Current Interpretive Data was last revised on 2017. Monocyte pct 9.8 % [facility] Comment: Interpretive Data Percent cell count reference ranges are not reported, since discordance with absolute values may lead to misinterpretation of CBC data. Current Interpretive Data was last revised on 2017. Eosinophil pct 1.8 % [facility] Comment: Interpretive Data Percent cell count reference ranges are not reported, since discordance with absolute values may lead to misinterpretation of CBC data. Current Interpretive Data was last revised on 2017. Basophil pct 0.3 % [facility] Comment: Interpretive Data Percent cell count reference ranges are not reported, since discordance with absolute values may lead to misinterpretation of CBC data. Current Interpretive Data was last revised on 2017. Blood 08/10/2024 3:31 AM CDT 08/10/2024 4:24 AM CDT Maryam Gloria [facility] BLOOD ORDERABLE S Final Result Performing Organization Address City/[facility]/ZIP Co de Phone Number [facility] [place] [address] * (ABNORMAL) CBC with auto differential (08/10/2024 3:31 AM CDT) Pathologist [facility] WBC 9.2 3.8 - 9.9 K/cumm Hgb 8.4(L) 11.9 - 15.5 g/dL [facility] Hct 26.5(L) 35.6 - 45.5 % [facility] Plt 278 150 - 400 K/cumm [facility] MPV 10.4 9.1 - 12.3 fL [facility] RBC 3.96 3.90 - 5.20 M/cumm [facility] MCV 66.9(L) 81.3 - 96.4 fL [facility] MCH 21.2(L) 27.1 - 33.3 pg [facility] MCHC 31.7(L) 32.3 - 35.7 g/dL [facility] RDW CV 18.6(H) 11.1 - 14.9 % [facility] RDW SD 43.8 35.7 - 48.1 fL [facility] NRBC abs 0.00 0.00 - 0.01 K/cumm [facility] Blood 08/10/2024 3:31 AM CDT 08/10/2024 4:24 AM CDT Maryam Castro Giacomino DO LAB BLOOD ORDERABLE S Final Result [facility] [place] [address] * Erythrocyte sedimentation rate (08/10/2024 3:31 AM CDT) Erythrocyte sedimentation rate 26 1 - 30 mm/hr Blood 08/10/2024 3:31 AM CDT 08/10/2024 4:28 AM CDT Bing Gong MD LAB BLOOD ORDERABLES Final Re sult Performing Organization Address [facility] Co de Phone Number [facility] [place] [address] * (ABNORMAL) CRP (acute phase) (08/10/2024 3:31 AM CDT) Pathologist [facility] CRP 10.1(H) <=10.0 mg/L Blood 08/10/2024 3:31 AM CDT 08/10/2024 4:24 AM CDT Bing Gong MD LAB BLOOD ORDERABLES Final Re sult Performing Organization Address [facility] Co de Phone Number [facility] [place] [address] * Magnesium (08/10/2024 3:31 AM CDT) [facility] Magnesium 2.3 1.4 - 2.5 mg/dL Blood 08/10/2024 3:31 AM CDT 08/10/2024 4:24 AM CDT Maryam Terrazas DO LAB BLOOD ORDERABLE S Final Result Performing Organization Address [facility] Co de Phone Number [facility] [place] [address] * (ABNORMAL) Hepatic function panel (08/10/2024 3:31 AM CDT) Pathologist [facility] Bilirubin, total 0.8 0.1 - 1.2 mg/dL Bilirubin, direct 0.3 0.1 - 0.3 mg/dL [facility] Protein, pl 5.7(L) 6.5 - 8.5 g/dL [facility] Albumin 3.3(L) 3.5 - 5.0 g/dL [facility] Alk phos 85 40 - 130 Units/L [facility] ALT 5(L) 7 - 45 Units/L [facility] AST 16 10 - 45 Units/L [facility] Blood 08/10/2024 3:31 AM CDT 08/10/2024 4:24 AM CDT us Maryam Terrazas DO LAB BLOOD ORDERABLE S Final Result [facility] Department [place] [address] * (ABNORMAL) Basic metabolic panel (08/10/2024 3:31 AM CDT) Sodium 142 135 - 145 mmol/L Potassium, pl 4.3 3.3 - 4.9 mmol/L [facility] Chloride 106 97 - 110 mmol/L [facility] CO2 29 22 - 32 mmol/L [facility] Anion gap 7 2 - 15 mmol/L [facility] BUN 28(H) 6 - 25 mg/dL [facility] Creatinine 0.80 0.60 - 1.10 mg/dL [facility] Glucose 76 70 - 199 mg/dL [facility] Comment: Interpretive Data Fasting glucose >/= [...] 2022. Calcium 9.0 8.5 - 10.3 mg/dL [facility] Blood 08/10/2024 3:31 AM CDT 08/10/2024 4:24 AM CDT us Maryam Terrazas DO LAB BLOOD ORDERABLE S Final Result Performing Organization Address [facility] Co de Phone Number [facility] [place] [address] * POCT glucose (08/09/2024 7:56 PM CDT) Glucose, POC 188 70 - 199 mg/dL Blood 08/09/2024 7:56 PM CDT 08/09/2024 7:56 PM CDT us Ramila Mccord MD LAB POCT ORDERABLES - DEVICE Final Result Performing Organization Address [facility] Co de Phone Number [facility] [place] [address] * POCT glucose (08/09/2024 5:01 PM CDT) Glucose, POC 145 70 - 199 mg/dL Blood 08/09/2024 5:01 PM CDT 08/09/2024 5:01 PM CDT us Ramila Mccord MD LAB POCT ORDERABLES - DEVICE Final Result Performing Organization Address [facility] Co de Phone Number [facility] [place] [address] * POCT glucose (08/09/2024 12:05 PM CDT) Glucose, POC 120 70 - 199 mg/dL Blood 08/09/2024 12:0 5 PM CDT 08/09/2024 12:05 PM CDT us Maryam Terrazas DO LAB POCT ORDERABLES - DEVICE Final Result MARYLU BREWER Florentino [facility] Department [place] [address] * POCT glucose (08/09/2024 7:45 AM CDT) Glucose, POC 127 70 - 199 mg/dL Blood 08/09/2024 7:45 AM CDT 08/09/2024 7:45 AM CDT us Maryam Dubrennenlenski Giacomino DO LAB POCT ORDERABLES - DEVICE Final Result Performing Organization Address [facility] de Phone Number MARYLU [facility] [place] [address] * eGFR (08/09/2024 6:23 AM CDT) Pathologist [facility] eGFR 72 >=60 mL/min/1. 73 m2 Comment: [...] LAB BLOOD ORDERABLE S Final Result MARYLU [facility] One [facility] Department [place] [address] * (ABNORMAL) Differential, auto (08/09/2024 6:23 AM CDT) Neutrophil abs 4.7 1.5 - 6.5 K/cumm Imm gran abs 0.1 0.0 - 0.1 K/cumm [facility] Lymphocyte abs 0.7(L) 0.8 - 3.3 K/cumm [facility] Monocyte abs 0.4 0.2 - 0.8 K/cumm [facility] Eosinophil abs 0.1 0.0 - 0.5 K/cumm [facility] Basophil abs 0.0 0.0 - 0.1 K/cumm [facility] Neutrophil pct 79.5 % [facility] Comment: Interpretive Data Percent cell count reference ranges are not reported, since discordance with absolute values may lead to misinterpretation of CBC data. Current Interpretive Data was last revised on 2017. Imm gran pct 0.8 % [facility] Comment: Interpretive Data Percent cell count reference ranges are not reported, since discordance with absolute values may lead to misinterpretation of CBC data. Current Interpretive Data was last revised on 2017. Lymphocyte pct 12.0 % [facility] Comment: Interpretive Data Percent cell count reference ranges are not reported, since discordance with absolute values may lead to misinterpretation of CBC data. Current Interpretive Data was last revised on 2017. Monocyte pct 6.6 % [facility] Comment: Interpretive Data Percent cell count reference ranges are not reported, since discordance with absolute values may lead to misinterpretation of CBC data. Current Interpretive Data was last revised on 2017. Eosinophil pct 0.8 % [facility] Comment: Interpretive Data Percent cell count reference ranges are not reported, since discordance with absolute values may lead to misinterpretation of CBC data. Current Interpretive Data was last revised on 2017. Basophil pct 0.3 % [facility] Comment: Interpretive Data Percent cell count reference ranges are not reported, since discordance with absolute values may lead to misinterpretation of CBC data. Current Interpretive Data was last revised on 2017. Blood 08/09/2024 6:23 AM CDT 08/09/2024 6:48 AM CDT Maryam Castro Giacomino DO LAB BLOOD ORDERABLE S Final Result Performing Organization Address City/[facility]/ZIP Co de Phone Number [facility] [place] [address] * (ABNORMAL) CBC with auto differential (08/09/2024 6:23 AM CDT) Pathologist [facility] WBC 5.9 3.8 - 9.9 K/cumm Hgb 9.6(L) 11.9 - 15.5 g/dL [facility] Hct 29.8(L) 35.6 - 45.5 % [facility] Plt 310 150 - 400 K/cumm [facility] MPV 9.3 9.1 - 12.3 fL [facility] RBC 4.46 3.90 - 5.20 M/cumm [facility] MCV 66.8(L) 81.3 - 96.4 fL [facility] MCH 21.5(L) 27.1 - 33.3 pg [facility] MCHC 32.2(L) 32.3 - 35.7 g/dL [facility] RDW CV 18.9(H) 11.1 - 14.9 % [facility] RDW SD 43.5 35.7 - 48.1 fL [facility] NRBC abs 0.00 0.00 - 0.01 K/cumm [facility] Blood 08/09/2024 6:23 AM CDT 08/09/2024 6:48 AM CDT Maryam Castro Giacomino DO LAB BLOOD ORDERABLE S Final Result [facility] [place] [address] * Magnesium (08/09/2024 6:23 AM CDT) [facility] Magnesium 2.3 1.4 - 2.5 mg/dL Blood 08/09/2024 6:23 AM CDT 08/09/2024 6:47 AM CDT [facility] BLOOD ORDERABLE S Final Result Performing Organization Address City/[facility] Co de Phone Number [facility] Department [place] [address] * Hepatic function panel (08/09/2024 6:23 AM CDT) [facility] Bilirubin, total 1.0 0.1 - 1.2 mg/dL Bilirubin, direct 0.3 0.1 - 0.3 mg/dL [facility] Protein, pl 6.9 6.5 - 8.5 g/dL [facility] Albumin 3.5 3.5 - 5.0 g/dL [facility] Alk phos 106 40 - 130 Units/L [facility] ALT 12 7 - 45 Units/L [facility] AST 30 10 - 45 Units/L [facility] Blood 08/09/2024 6:23 AM CDT 08/09/2024 6:47 AM CDT Maryam Castro [facility] BLOOD ORDERABLE S Final Result [facility] Department [place] [address] * Basic metabolic panel (08/09/2024 6:23 AM CDT) [facility] Sodium 145 135 - 145 mmol/L Potassium, pl 4.5 3.3 - 4.9 mmol/L [facility] Chloride 106 97 - 110 mmol/L [facility] CO2 28 22 - 32 mmol/L [facility] Anion gap 11 2 - 15 mmol/L [facility] BUN 24 6 - 25 mg/dL [facility] Creatinine 0.79 0.60 - 1.10 mg/dL [facility] Glucose 114 70 - 199 mg/dL [facility] Comment: Interpretive Data Fasting glucose >/= [...] 2022. Calcium 9.6 8.5 - 10.3 mg/dL [facility] Blood 08/09/2024 6:23 AM CDT 08/09/2024 6:47 AM CDT us Maryam Terrazas DO LAB BLOOD ORDERABLE S Final Result [facility] Department [place] [address] * MRI Brain Incl Orbits WO Contrast [...] POCT ORDERABLES - DEVICE Final Result MARYLU [facility] Department [place] [address] * POCT glucose (08/08/2024 6:36 PM CDT) Glucose, POC 142 70 - 199 mg/dL Blood 08/08/2024 6:36 PM CDT 08/08/2024 6:36 PM CDT Maryam Terrazas DO LAB POCT ORDERABLES - DEVICE Final Result MARYLU FRASER One [facility] [place] [address] * Neuro CT Outside Consult (08/08/2024 5:21 PM CDT) Anatomical Region Laterality Modality N/A Computed Tomogra phy 08/08/2024 6:47 PM CDT Impressions 08/08/2024 7:00 PM CDT 1. No acute intracranial abnormality. 2. Souj-un-xhcsscjb degree of senescent white matter changes. 3. [...] images may or may not represent the [place] source data set and thus may contain [...] IMAGING STUDY STUDY INITIALLY PERFORMED: 08/06/2024 at [facility]. TYPE OF STUDY: Multiple CT images of [...] IMAGING STUDY STUDY INITIALLY PERFORMED: 08/06/2024 at [facility]. TYPE OF STUDY: Multiple CT images of [...] IMPRESSION: 1. No acute intracranial abnormality. 2. Ufyc-tc-vnnfqkda degree of senescent white matter changes. 3. [...] images may or may not represent the [place] source data set and thus may contain [...] PM CDT Narrative 08/08/2024 4:40 PM CDT [facility] [place] [address] Transthoracic Echocardiographic Report Patient Name: BRENNEN DIAZ L : 1935 (88y 9m) Gender: F Study Date: 08/08/2024 02:52:22 PM Ht(Inch): 65 Wt(Lb): 117.06 BSA: 1.56 Collating Machine Operator: Adalid Wilson RDCS Location: [id number] Order Provider: MARYAM TERRAZAS Heart Rate: 59 [...] [ -25.0 - -18.0 ] AI [place] 2.30 m/s2 LA Length 4C 6.21 cm [...] Procedure Note Lisa Camejo MD - 08/08/2024 [facility] [place] [address] Transthoracic Echocardiographic Report Patient Name: BRENNEN DIAZ L : 1935 (88y 9m) Gender: F Study Date: 08/08/2024 02:52:22 PM Ht(Inch): 65 Wt(Lb): 117.06 BSA: 1.56 Collating Machine Operator: Adalid Wilson RDCS Location: [id number] Order Provider:MARYAM TERRAZAS Heart Rate: 59 BMI: [...] m/s2 LA Length 4C 6.21 cm AI [id number] msec LA Length 2C 6.70 cm MV [...] Asc Ao Diam 2D 4.61 cm MR DIN336.4 cm Asc Ao Index 2.96 cm/m2 MR [...] DO CV ECHO PROCEDURES Final Result * SENIOR OFFICER Evaluate and Treat Clinical Swallow (08/08/2024 9:57 [...] Observations: Pt awake laying in bed, is [place], cooperative throughout exam. Pain Score: 0 - [...] conversant, requires repetition of instruction due to [place]. Reports she is tried this morning. Oral mechanism exam WFL. Pt fed self ice chips, sips of water, bites of puree and hard solids. Slow mastication, no remarkable oral residue. No overt s/s of aspiration across several PO trials. No further SENIOR OFFICER indicated. Assessment Details & Results Consistencies Administered: [...] Aspiration Risk: No aspiration risk (170-200) Plan SENIOR OFFICER Frequency of Services during current admission: One-time visit (Discharge from this service) SENIOR OFFICER Recommendation (Add'l Services): No further SENIOR OFFICER indicated Next Visit Plan:No further ST warranted Additional Referrals: n/a Please reference care plan for treatment goals, if indicated. Discharge Summary Statement If this is the last swallow therapy visit, this serves as the discharge summary. us Maryam eTrrazas DO SENIOR OFFICER ORDERABLES Fin al Result * eGFR (08/08/2024 [...] DO LAB BLOOD ORDERABLE S Final Result [facility] One [facility] Department [place] [address] * (ABNORMAL) Differential, auto (08/08/2024 5:29 AM CDT) Pathologist [facility] Neutrophil abs 9.4(H) 1.5 - 6.5 K/cumm Imm gran abs 0.1 0.0 - 0.1 K/cumm [facility] Lymphocyte abs 0.9 0.8 - 3.3 K/cumm [facility] Monocyte abs 0.7 0.2 - 0.8 K/cumm [facility] Eosinophil abs 0.0 0.0 - 0.5 K/cumm [facility] Basophil abs 0.0 0.0 - 0.1 K/cumm [facility] Neutrophil pct 84.2 % [facility] Comment: Interpretive Data Percent cell count reference ranges are not reported, since discordance with absolute values may lead to misinterpretation of CBC data. Current Interpretive Data was last revised on 2017. Imm gran pct 0.6 % MARYLU [facility] Comment: Interpretive Data Percent cell count reference ranges are not reported, since discordance with absolute values may lead to misinterpretation of CBC data. Current Interpretive Data was last revised on 2017. Lymphocyte pct 8.0 % MARYLU [facility] Comment: Interpretive Data Percent cell count reference ranges are not reported, since discordance with absolute values may lead to misinterpretation of CBC data. Current Interpretive Data was last revised on 2017. Monocyte pct 6.6 % MARYLU [facility] Comment: Interpretive Data Percent cell count reference ranges are not reported, since discordance with absolute values may lead to misinterpretation of CBC data. Current Interpretive Data was last revised on 2017. Eosinophil pct 0.3 % [facility] Comment: Interpretive Data Percent cell count reference ranges are not reported, since discordance with absolute values may lead to misinterpretation of CBC data. Current Interpretive Data was last revised on 2017. Basophil pct 0.3 % [facility] Comment: Interpretive Data Percent cell count reference ranges are not reported, since discordance with absolute values may lead to misinterpretation of CBC data. Current Interpretive Data was last revised on 2017. Blood 08/08/2024 5:29 AM CDT 08/08/2024 6:02 AM CDT us Maryam Terrazas DO LAB BLOOD ORDERABLE S Final Result [facility] One [facility] Department [place] [address] * (ABNORMAL) CBC with auto differential (08/08/2024 5:29 AM CDT) WBC 11.2(H) 3.8 - 9.9 K/cumm Hgb 9.3(L) 11.9 - 15.5 g/dL MARYLU [facility] Hct 29.8(L) 35.6 - 45.5 % [facility] Plt 312 150 - 400 K/cumm [facility] MPV 9.6 9.1 - 12.3 fL [facility] RBC 4.45 3.90 - 5.20 M/cumm [facility] MCV 67.0(L) 81.3 - 96.4 fL [facility] MCH 20.9(L) 27.1 - 33.3 pg [facility] MCHC 31.2(L) 32.3 - 35.7 g/dL [facility] RDW CV 18.8(H) 11.1 - 14.9 % [facility] RDW SD 44.1 35.7 - 48.1 fL [facility] NRBC abs 0.00 0.00 - 0.01 K/cumm [facility] Blood 08/08/2024 5:29 AM CDT 08/08/2024 6:02 AM CDT us Maryam Castro Giacomino DO LAB BLOOD ORDERABLE S Final Result Performing Organization Address [facility] Co de Phone Number [facility] Department [place] [address] * (ABNORMAL) Manual Differential (08/08/2024 5:29 AM CDT) Differential Auto RBC morphology Present(A) [facility] Hypochromasia 3-7/HPF(A) [facility] Anisocytosis Slight(A) [facility] Poikilocytosis Marked(A) [facility] Platelet estimate Adequate [facility] Blood 08/08/2024 5:29 AM CDT 08/08/2024 6:05 AM CDT us Maryam Duguerda Giacomino DO LAB BLOOD ORDERABLE S Final Result Performing Organization Address City/[facility]/ZIP Co de Phone Number [facility] Department [place] [address] * Magnesium (08/08/2024 5:29 AM CDT) [facility] Magnesium 2.2 1.4 - 2.5 mg/dL Blood 08/08/2024 5:29 AM CDT 08/08/2024 6:02 AM CDT Maryam Castro [facility] LAB BLOOD ORDERABLE S Final Result Performing Organization Address [facility] Co de Phone Number [facility] Department [place] [address] * (ABNORMAL) Hepatic function panel (08/08/2024 5:29 AM CDT) [facility] Bilirubin, total 1.0 0.1 - 1.2 mg/dL Bilirubin, direct 0.3 0.1 - 0.3 mg/dL [facility] Protein, pl 6.3(L) 6.5 - 8.5 g/dL [facility] Albumin 3.7 3.5 - 5.0 g/dL [facility] Alk phos 101 40 - 130 Units/L [facility] ALT 7 7 - 45 Units/L [facility] AST 28 10 - 45 Units/L [facility] Blood 08/08/2024 5:29 AM CDT 08/08/2024 6:02 AM CDT [facility] LAB BLOOD ORDERABLE S Final Result Performing Organization Address [facility] Co de Phone Number [facility] Department [place] [address] * Basic metabolic panel (08/08/2024 5:29 AM CDT) [facility] Sodium 144 135 - 145 mmol/L Potassium, pl 4.1 3.3 - 4.9 mmol/L [facility] Chloride 107 97 - 110 mmol/L [facility] CO2 29 22 - 32 mmol/L [facility] Anion gap 8 2 - 15 mmol/L [facility] BUN 19 6 - 25 mg/dL [facility] Creatinine 0.78 0.60 - 1.10 mg/dL [facility] Glucose 77 70 - 199 mg/dL [facility] Comment: Interpretive Data Fasting glucose >/= [...] 2022. Calcium 9.0 8.5 - 10.3 mg/dL [facility] Blood 08/08/2024 5:29 AM CDT 08/08/2024 6:02 AM CDT Maryam Terrazas DO LAB BLOOD ORDERABLE S Final Result [facility] Department [place] [address] * XR Chest 1 View (08/07/2024 12:30 [...] LAB BLOOD ORDERABLE S Final Result MARYLU [facility] Department [place] [address] * (ABNORMAL) Differential, auto (08/07/2024 5:25 AM CDT) Neutrophil abs 5.2 1.5 - 6.5 K/cumm Imm gran abs 0.0 0.0 - 0.1 K/cumm [facility] Lymphocyte abs 0.6(L) 0.8 - 3.3 K/cumm [facility] Monocyte abs 0.5 0.2 - 0.8 K/cumm [facility] Eosinophil abs 0.1 0.0 - 0.5 K/cumm [facility] Basophil abs 0.0 0.0 - 0.1 K/cumm [facility] Neutrophil pct 80.5 % [facility] Comment: Interpretive Data Percent cell count reference ranges are not reported, since discordance with absolute values may lead to misinterpretation of CBC data. Current Interpretive Data was last revised on 2017. Imm gran pct 0.5 % [facility] Comment: Interpretive Data Percent cell count reference ranges are not reported, since discordance with absolute values may lead to misinterpretation of CBC data. Current Interpretive Data was last revised on 2017. Lymphocyte pct 9.7 % [facility] Comment: Interpretive Data Percent cell count reference ranges are not reported, since discordance with absolute values may lead to misinterpretation of CBC data. Current Interpretive Data was last revised on 2017. Monocyte pct 7.1 % MARYLU [facility] Comment: Interpretive Data Percent cell count reference ranges are not reported, since discordance with absolute values may lead to misinterpretation of CBC data. Current Interpretive Data was last revised on 2017. Eosinophil pct 1.9 % [facility] Comment: Interpretive Data Percent cell count reference ranges are not reported, since discordance with absolute values may lead to misinterpretation of CBC data. Current Interpretive Data was last revised on 2017. Basophil pct 0.3 % [facility] Comment: Interpretive Data Percent cell count reference ranges are not reported, since discordance with absolute values may lead to misinterpretation of CBC data. Current Interpretive Data was last revised on 2017. Blood 08/07/2024 5:25 AM CDT 08/07/2024 5:49 AM CDT Maryam Terrazas DO LAB BLOOD ORDERABLE S Final Result [facility] Department [place] [address] * Respiratory pathogen panel Nasopharyngeal (08/07/2024 5:25 AM CDT) Pathologist [facility] Influenza A RNA Not Detected Not Detected Influenza B RNA Not Detected Not Detected [facility] RSV RNA Not Detected Not Detected [facility] COVID-19 RNA Not Detected Not Detected [facility] Coronavirus 229E RNA Not Detected Not Detected [facility] Coronavirus HKU1 RNA Not Detected Not Detected [facility] Coronavirus NL63 RNA Not Detected Not Detected [facility] Coronavirus OC43 RNA Not Detected Not Detected [facility] Adenovirus DNA Not Detected Not Detected [facility] Metapneumovirus RNA Not Detected Not Detected [facility] Rhinovirus/Enterov irus RNA Not Detected Not Detected [facility] Parainfluenza 1 RNA Not Detected Not Detected [facility] Parainfluenza 2 RNA Not Detected Not Detected [facility] Parainfluenza 3 RNA Not Detected Not Detected [facility] Parainfluenza 4 RNA Not Detected Not Detected [facility] B. pertussis DNA Not Detected Not Detected [facility] B. parapertussis DNA Not Detected Not Detected [facility] C. pneumoniae DNA Not Detected Not Detected [facility] M. pneumoniae DNA Not Detected Not Detected [facility] Nasopharyngeal 08/07/2024 5: 25 AM CDT 08/07/2024 12:49 PM CDT Narrative [facility] - 08/07/2024 2:25 PM CDT Is the Patient experiencing symptoms consistent with COVID?->Yes Surveillance testing for transplant patient?->No Interpretive Data The [employer]pp[employer] FilmArray Respiratory Panel (RP2.1) assay is a [...] assay has FDA clearance for testing of BELLY DANCER swabs. The performance of additional specimen types has been assessed by the performing laboratory. The performance characteristics of this assay have been determined by [facility] Molecular Infectious Disease Laboratory. Current interpretive data was last revised on 22. us Maryam Hernandezmino DO LAB MICROBIOLOGY - GENERAL ORDERABLES Final Result [facility] Department [place] [address] * (ABNORMAL) CBC with auto differential (08/07/2024 5:25 AM CDT) WBC 6.5 3.8 - 9.9 K/cumm Hgb 9.1(L) 11.9 - 15.5 g/dL [facility] Hct 29.1(L) 35.6 - 45.5 % [facility] Plt 321 150 - 400 K/cumm [facility] MPV 9.6 9.1 - 12.3 fL [facility] RBC 4.32 3.90 - 5.20 M/cumm [facility] MCV 67.4(L) 81.3 - 96.4 fL [facility] MCH 21.1(L) 27.1 - 33.3 pg [facility] MCHC 31.3(L) 32.3 - 35.7 g/dL [facility] RDW CV 18.6(H) 11.1 - 14.9 % [facility] RDW SD 44.4 35.7 - 48.1 fL [facility] NRBC abs 0.00 0.00 - 0.01 K/cumm [facility] Blood 08/07/2024 5:25 AM CDT 08/07/2024 5:49 AM CDT Maryam Hernandezmino DO LAB BLOOD ORDERABLE S Final Result [facility] Department [place] [address] * Magnesium (08/07/2024 5:25 AM CDT) Magnesium 2.2 1.4 - 2.5 mg/dL Blood 08/07/2024 5:25 AM CDT 08/07/2024 5:54 AM CDT Maryam Castro Synchrisacomino DO LAB BLOOD ORDERABLE S Final Result Performing Organization Address City/[facility] Co de Phone Number [facility] [place] [address] * (ABNORMAL) Hepatic function panel (08/07/2024 5:25 AM CDT) [facility] Bilirubin, total 0.8 0.1 - 1.2 mg/dL Bilirubin, direct 0.3 0.1 - 0.3 mg/dL [facility] Protein, pl 6.4(L) 6.5 - 8.5 g/dL [facility] Albumin 3.8 3.5 - 5.0 g/dL [facility] Alk phos 108 40 - 130 Units/L [facility] ALT 7 7 - 45 Units/L [facility] AST 32 10 - 45 Units/L [facility] Blood 08/07/2024 5:25 AM CDT 08/07/2024 5:54 AM CDT Maryam HernandezElectroCorejacky DO LAB BLOOD ORDERABLE S Final Result Performing Organization Address [facility] [facility] de Phone Number [facility] [place] [address] * Basic metabolic panel (08/07/2024 5:25 AM CDT) [facility] Sodium 143 135 - 145 mmol/L Potassium, pl 3.7 3.3 - 4.9 mmol/L [facility] Chloride 105 97 - 110 mmol/L [facility] CO2 31 22 - 32 mmol/L [facility] Anion gap 7 2 - 15 mmol/L [facility] BUN 18 6 - 25 mg/dL [facility] Creatinine 0.83 0.60 - 1.10 mg/dL [facility] Glucose 75 70 - 199 mg/dL [facility] Comment: Interpretive Data Fasting glucose >/= [...] 2022. Calcium 8.8 8.5 - 10.3 mg/dL [facility] Blood 08/07/2024 5:25 AM CDT 08/07/2024 5:54 AM CDT Maryam Márquezalvini GiacoElectroCoreo DO LAB BLOOD ORDERABLE S Final Result Performing Organization Address [facility] Co de Phone Number [facility] Department [place] [address] * (ABNORMAL) Troponin I high-sensitivity (08/06/2024 9:18 PM CDT) Trop I hs 25(H) <=17 ng/L Comment: Interpretive Data For further hscTnI resources including the diagnostic algorithm and an aid in interpretation, copy and paste this link: https://bjhlab.testcatalog.org/show/[email or web address] Current Interpretive Data last revised 2019. Blood 08/06/2024 9:18 PM CDT 08/06/2024 9:48 PM CDT us Maryam Dualvini GiacoElectroCoreo DO LAB BLOOD ORDERABLE S Final Result Performing Organization Address City/[facility]/ZIP Co de Phone Number [facility] [place] [address] * XR Chest 1 View (08/06/2024 6:33 [...] LAB BLOOD ORDERABLE S Final Result [facility] Department of Laboratories [place], [place] [id number] * eGFR (08/06/2024 2:19 PM CDT) eGFR [...] LAB BLOOD ORDERABLE S Final Result [facility] Department [place] [address] * (ABNORMAL) Pro B-type natriuretic peptide (08/06/2024 [...] CDT 08/06/2024 2:42 PM CDT us Maryam DuPM Pediatricsi GiacoElectroCoreo DO LAB BLOOD ORDERABLE S Final Result Performing Organization Address City/[facility]/ZIP Co de Phone Number [facility] [place] [address] * (ABNORMAL) Thyroid Function [place] (08/06/2024 2:19 PM CDT) TSH 11.20(H) 0.30 - 4.20 mcIUnit/mL Blood 08/06/2024 2:19 PM CDT 08/06/2024 2:42 PM CDT us [employer] DO LAB BLOOD ORDERABLE S Final Result [facility] [employer] [place] [address] * Calcium, ionized (08/06/2024 2:19 PM CDT) Calcium, Ionized 4.60 4.50 - 5.10 mg/dL Blood 08/06/2024 2:19 PM CDT 08/06/2024 2:42 PM CDT us Maryam Castro Giacomino DO LAB BLOOD ORDERABLE S Final Result Performing Organization Address City/[facility]/ZIP Co de Phone Number [facility] Department [place] [address] * (ABNORMAL) Iron profile w/ IBC (08/06/2024 2:19 PM CDT) Pathologist [facility] Iron 82 35 - 145 mcg/dL TIBC 223(L) 250 - 400 mcg/dL [facility] Transferrin saturation 37 20 - 50 % [facility] Blood 08/06/2024 2:19 PM CDT 08/06/2024 2:42 PM CDT us Maryma Hernandezminjacky DO LAB BLOOD ORDERABLE S Final Result Performing Organization Address [facility] Co de Phone Number [facility] [place] [address] * HIV 1/2 Antibody plus p24 Antigen Blood (08/06/2024 2:19 PM CDT) Pathologist [facility] HIV 1/2 ab + p24 [...] GENERAL ORDERABLES Final Result Performing Organization Address [facility] Co de Phone Number [facility] Department [place] [address] * (ABNORMAL) Urinalysis reflex to microscopic and culture Urine (08/06/2024 2:19 PM CDT) Color, ur Straw Yellow Clarity, ur Clear Clear [facility] Specific gravity, ur 1.009 1.003 - 1.030 [facility] pH, urine 7.5 [facility] Comment: Interpretive Data U rine pH is affected by diet, medications, systemic acid-base disturbances, and renal tubular function. pH may affect urinary stone formation. For example, urine pH below 6.0 may help reduce the tendency for calcium phosphate stones and pH greater than 6.0 may reduce the tendency for uric acid stone formation. Source: [facility] [employer] Current Interpretive Data was last revised on 2017 Protein, ur ql Negative Negative [facility] Glucose, ur ql Negative Negative [facility] Ketones, ur Negative Negative [facility] Bilirubin, ur Negative Negative [facility] Blood, ur 2+(A) Negative [facility] Urobilinogen, ur <2.0 <2.0 mg/dL [facility] Nitrite, ur Negative Negative [facility] Leukocyte esterase, ur Trace(A) Negative [facility] UA reflex comment Reflex to microscopic UA will be performed. [facility] Urine 08/06/2024 2:19 PM CDT 08/06/2024 2:41 PM CDT us Amryam DuPM Pediatricsi Giacomino DO LAB MICROBIOLOGY - GENERAL ORDERABLES Final Result Performing Organization Address City/[facility] Co de Phone Number [facility] Department [place] [address] * RPR Blood (08/06/2024 2:19 PM CDT) RPR Nonreactive Nonreactive Blood 08/06/2024 2:19 PM CDT 08/06/2024 2:53 PM CDT us Maryam Enjoyori GiacoElectroCoreo DO LAB MICROBIOLOGY - GENERAL ORDERABLES Final Result Performing Organization Address [facility]/ZIP Co de Phone Number [facility] Department [place] [address] * Blood culture Blood (08/06/2024 2:19 PM [...] performance characteristics have been verified by the [facility] Microbiology Laboratory. For questions about this culture, contact the Microbiology Laboratory at [phone]. Interpretive data was last revised on 24. us Maryam Terrazas DO LAB MICROBIOLOGY - GENERAL ORDERABLES Final Result [facility] BREWER Florentino [facility] Department [place] [address] * Blood culture Blood (08/06/2024 2:19 PM CDT) Report Final Report: No growth Blood 08/06/2024 2:19 PM CDT 08/06/2024 2:54 PM CDT Narrative [facility] - 08/10/2024 4:00 PM CDT Collection->Peripheral 1. [...] performance characteristics have been verified by the [facility] Microbiology Laboratory. For questions about this culture, contact the Microbiology Laboratory at [phone]. Interpretive data was last revised on 24. us Maryam Terrazas DO LAB MICROBIOLOGY - GENERAL ORDERABLES Final Result [facility] Department [place] [address] * (ABNORMAL) Urinalysis, microscopic only (08/06/2024 2:19 PM CDT) WBC, ur 0-5 0 - 5 /HPF RBC, ur >50(A) 0 - 2 /HPF [facility] Epithelial cells, squamous, ur 1-5 0 - 5 /HPF [facility] Bacteria, ur 1+(A) [facility] Mucous, ur Present(A) [facility] Hyaline casts, ur 1-5 0 - 10 /LPF [facility] Culture Reflex Comment Reflex conditions for urine culture (WBC >10) not met. [facility] Urine 08/06/2024 2:19 PM CDT 08/06/2024 2:41 PM CDT Maryam Rizoi Giacomino DO LAB URINE ORDERABLE S Final Result Performing Organization Address [facility] de Phone Number [facility] [place] [address] * (ABNORMAL) aPTT (08/06/2024 2:19 PM CDT) [...] Final Result Performing Organization Address [facility] de Phone Number [facility] [place] [address] * Protime-INR (08/06/2024 2:19 PM CDT) PT 9.8 9.7 - 13.0 sec INR 0.91 0.90 - 1.20 [facility] Comment: Interpretive data Oral anticoagulant therapeutic [...] ORDERABLE S Final Result Performing Organization Address City/[facility]/ZIP Co de Phone Number [facility] [place] [address] * (ABNORMAL) CBC without differential (08/06/2024 2:19 PM CDT) WBC 6.6 3.8 - 9.9 K/cumm Hgb 9.6(L) 11.9 - 15.5 g/dL [facility] Hct 31.0(L) 35.6 - 45.5 % [facility] Plt 333 150 - 400 K/cumm [facility] MPV 9.9 9.1 - 12.3 fL [facility] RBC 4.61 3.90 - 5.20 M/cumm [facility] MCV 67.2(L) 81.3 - 96.4 fL [facility] MCH 20.8(L) 27.1 - 33.3 pg [facility] MCHC 31.0(L) 32.3 - 35.7 g/dL [facility] RDW CV 19.1(H) 11.1 - 14.9 % [facility] RDW SD 44.2 35.7 - 48.1 fL [facility] NRBC abs 0.00 0.00 - 0.01 K/cumm [facility] Blood 08/06/2024 2:19 PM CDT 08/06/2024 2:53 PM CDT Maryam Gloria Giacomino DO LAB BLOOD ORDERABLE S Final Result [facility] [place] [address] * Type and screen (08/06/2024 2:19 PM CDT) Tatiana, indirect Negative ABO Rh O Positive [facility] Blood 08/06/2024 2:19 PM CDT 08/06/2024 2:43 PM CDT Narrative [facility] - 08/06/2024 3:37 PM CDT Has the patient had Daratumumab or Isatuximab in the past 6 months?->Unknown Maryam RiggsAlseres Pharmaceuticalsjacky DO LAB BLOOD BANK TEST [place] [address] * Infection Prevention MRSA Only (Staphylococcus aureus) Culture Nasal (08/06/2024 2:19 PM CDT) Report Final Report: Negative Nasal 08/06/2024 2:19 PM CDT 08/06/2024 10:24 PM CDT Narrative [facility] - 08/08/2024 1:37 AM CDT Testing performed by [facility] Microbiology Laboratory ([phone]). Maryam Castro St[employer] LAB MICROBIOLOGY - GENERAL ORDERABLES Final Result Performing Organization Address City/[facility]/[place] [address] * T4, free (08/06/2024 2:19 PM CDT) Pathologist [facility] Free T4 1.21 0.90 - 1.70 ng/dL Blood 08/06/2024 2:19 PM CDT 08/06/2024 2:42 PM CDT Maryam Castro [employer] LAB BLOOD [place] [address] * Phosphorus (08/06/2024 2:19 PM CDT) Pathologist [facility] Phosphorus, pl 3.1 2.3 - 4.5 mg/dL Blood 08/06/2024 2:19 PM CDT 08/06/2024 2:42 PM CDT us Maryam Dugolenski Giacomino DO LAB BLOOD ORDERABLE S Final Result Performing Organization Address City/[facility] Co de Phone Number [facility] [place] [address] * Magnesium (08/06/2024 2:19 PM CDT) [facility] Magnesium 2.3 1.4 - 2.5 mg/dL Blood 08/06/2024 2:19 PM CDT 08/06/2024 2:42 PM CDT Maryam Dubrennenlenski Giacomino DO LAB BLOOD ORDERABLE S Final Result Performing Organization Address [facility] [place] [address] * Lactate dehydrogenase (LD) (08/06/2024 2:19 PM CDT) [facility] Lactate dehydrogenase (LDH) 238 100 - 250 Units/L Blood 08/06/2024 2:19 PM CDT 08/06/2024 2:42 PM CDT Maryam Dubrennenlenski Giacomino DO LAB BLOOD ORDERABLE S Final Result Performing Organization Address City/[facility] [place] [address] * Hemoglobin A1c (08/06/2024 2:19 PM CDT) [facility] Hgb A1C 5.5 4.0 - 5.6 % Estimated Average Glucose 111 mg/dL [facility] Comment: The ADA recommends reporting an estimated Average Glucose (eAG) with all Hemoglobin A1c results using the equation derived from a study of 507 normal and diabetic adults. Minority populations were underrepresented and children were not included. (Diabetes Care 2020; 43(S1): S66-S76). The eAG is not equivalent to a fasting glucose. Blood 08/06/2024 2:19 PM CDT 08/06/2024 2:53 PM CDT [employer] LAB BLOOD ORDERABLE S Final Result Performing Organization Address City/[facility] Co de Phone Number [facility] [place] [address] * Haptoglobin (08/06/2024 2:19 PM CDT) Haptoglobin 82.0 30.0 - 200.0 mg/dL Blood 08/06/2024 2:19 PM CDT 08/06/2024 2:42 PM CDT [employer] LAB BLOOD ORDERABLE S Final Result Performing Organization Address City/[facility] de Phone Number [facility] [place] [address] * (ABNORMAL) Blood gas, venous (08/06/2024 2:19 PM CDT) pH, Venous 7.40 7.32 - 7.43 PCO2, Venous 55(H) 40 - 50 mmHg [facility] PO2, Venous 30 mmHg [facility] Comment: Interpretive Data No Reference Range Established Current Interpretive Data was last revised on 2017. HCO3 Venous, Calculated 35(H) 20 - 30 mmol/L [facility] BE, venous 8 mmol/L [facility] Comment: Interpretive Data No Reference Range Established Current Interpretive Data was last revised on 2017. Blood 08/06/2024 2:19 PM CDT 08/06/2024 2:40 PM CDT us Maryam Dugolenski Giacomino DO LAB BLOOD ORDERABLE S Final Result Performing Organization Address City/[facility]/ZIP Co de Phone Number [facility] [place] [address] * (ABNORMAL) Ferritin (08/06/2024 2:19 PM CDT) Ferritin 342(H) 13 - 150 ng/mL Blood 08/06/2024 2:19 PM CDT 08/06/2024 2:42 PM CDT Maryam Dubrennenlenski Giacomino DO LAB BLOOD ORDERABLE S Final Result Performing Organization Address [facility] Co de Phone Number [facility] [place] [address] * Vitamin B12 (08/06/2024 2:19 PM CDT) Vitamin B12 584 230 - 1,250 pg/mL Blood 08/06/2024 2:19 PM CDT 08/06/2024 2:42 PM CDT Maryam Dubrennenlenski Giacomino DO LAB BLOOD ORDERABLE S Final Result Performing Organization Address City/[facility] Co de Phone Number [facility] [place] [address] * (ABNORMAL) Cortisol (08/06/2024 2:19 PM CDT) Cortisol 23.0(H) 4.8 - 19.5 mcg/dL Comment: Interpretive Data: Morning hours 6-10 a.m. 4.8 - 19.5 mcg/dL Afternoon hours 4-8 p.m. 2.5 - 11.9 mcg/dL This analyte undergoes marked diurnal variation. Current interpretive data was last revised 23. Blood 08/06/2024 2:19 PM CDT 08/06/2024 2:42 PM CDT Maryam Castro Synchrisacomino DO LAB BLOOD ORDERABLE S Final Result Performing Organization Address [facility] Co de Phone Number [facility] [place] [address] * (ABNORMAL) Hepatic function panel (08/06/2024 2:19 PM CDT) Bilirubin, total 0.8 0.1 - 1.2 mg/dL Bilirubin, direct 0.3 0.1 - 0.3 mg/dL [facility] Protein, pl 6.9 6.5 - 8.5 g/dL [facility] Albumin 4.1 3.5 - 5.0 g/dL [facility] Alk phos 118 40 - 130 Units/L [facility] ALT 6(L) 7 - 45 Units/L [facility] AST 34 10 - 45 Units/L [facility] Blood 08/06/2024 2:19 PM CDT 08/06/2024 2:42 PM CDT Maryam Salliejhony Terrazas [facility] BLOOD ORDERABLE S Final Result Performing Organization Address [facility] de Phone Number [facility] Department [place] [address] * (ABNORMAL) Lipid panel (08/06/2024 2:19 PM [...] revised on 2018. Triglycerides 57 <=149 mg/dL [facility] Comment: Interpretive Data Ages < or [...] revised on 2018. HDL 80 >=40 mg/dL [facility] Comment: Interpretive Data Ages < or [...] on 2018. LDL, calculated 125 <=129 mg/dL [facility] Comment: Interpretive Data Ages < or [...] Carroll et al. CHIARA Cardiol. 2020 September 12;5(5):540-544. doi: [email or web address] Current Interpretive Data was last revised on 2024. Non-HDL Cholesterol 135 mg/dL [facility] Comment: Interpretive Data Ages < or [...] last revised on 2018. Chol/HDL ratio 3 [facility] Blood 08/06/2024 2:19 PM CDT 08/06/2024 2:42 PM CDT Maryam Terrazas DO LAB BLOOD ORDERABLE S Final Result [facility] Department [place] [address] * Basic metabolic panel (08/06/2024 2:19 PM CDT) Sodium 145 135 - 145 mmol/L Potassium, pl 4.0 3.3 - 4.9 mmol/L [facility] Chloride 102 97 - 110 mmol/L [facility] CO2 32 22 - 32 mmol/L [facility] Anion gap 11 2 - 15 mmol/L [facility] BUN 19 6 - 25 mg/dL [facility] Creatinine 0.85 0.60 - 1.10 mg/dL [facility] Glucose 96 70 - 199 mg/dL [facility] Comment: Interpretive Data Fasting glucose >/= [...] 2022. Calcium 9.3 8.5 - 10.3 mg/dL [facility] Blood 08/06/2024 2:19 PM CDT 08/06/2024 2:42 PM CDT us Maryam Terrazas DO LAB BLOOD ORDERABLE S Final Result [facility] Department [place] [address] * ECG 12 lead (08/06/2024 2:11 PM CDT) Pathologist [facility] Ventricular Rate EKG/Min 75 BPM [facility] Atrial Rate 75 BPM [facility] IA-Interval (MSEC) 206 ms [facility] QRS-Interval (MSEC) 94 ms [facility] QT-Interval (MSEC) 358 ms [facility] QTc 399 ms [facility] P [place] 69 degrees [facility] R [place] -4 degrees [facility] T [place] 114 degrees [facility] Diagnosis Normal sinus rhythm ST & T wave abnormality, consider lateral ischemia Abnormal ECG No previous ECGs available Confirmed by Cj AGUILERA, Mumtaz ([id number]) on 08/07/2024 2:36:10 PM [facility] 08/06/2024 2:11 PM CDT 08/07/2024 2:36 PM CDT us Maryam Hernandezminjacky DO ECG ORDERABLES Fin al Result [facility] from Last 3 Months Insurance [employer] MEDICARE GOLD [place] [facility] IDPA TNA MEDICARE GOLD [facility] AET[employer] MEDICARE GOLD Advance Directives For more information, please contact: [phone] * Full Code (Latest Code Status on File) Date Activated Date Inactivated Comments 08/06/2024 2:04 PM 08/20/2024 6:13 PM Care Teams Deputy General Counsel Relationship Specialty Start Date End Date Luis Almeida DO PCP - General Internal Medicine 01/06/21
[2024-10-11 14:14] LABS: INR 0.9; Prothrombin Time 12.8 Seconds (11.1-14.7)
[2024-10-11 14:15] LABS: Partial Thromboplastin Time 29.4 Seconds (22.3-36.8)
[2024-10-11 14:21] LABS: Alanine Aminotransferase 7 U/L (6-35); Albumin Level 2.8 g/dL (3.5-5.1); Alkaline Phosphatase 89 U/L (38-126); Anion Gap 3 mmol/L (4-12); Anisocytosis 2+; Aspartate Amino Transferase 17 U/L (14-36); Bilirubin,Total 0.7 mg/dL (0.2-1.3); Blood Urea Nitrogen 28 mg/dL (7-17); Calcium 8.2 mg/dL (8.4-10.2); Carbon Dioxide 33 mmol/L (22-30); Chloride 98 mmol/L (98-107); Estimated CRCL calculation 26 ml/min; Estimated Glomerular Filt Rate 47; Glucose 113 mg/dL (65-110); Hypochromasia 2+; Platelet Estimate Slightly Increased (Adequate); Potassium 3.8 mmol/L (3.4-5.0); Sodium 134 mmol/L (137-145); Target Cells 1+
[2024-10-11 14:22] LABS: Acanthocytes 1+; Ovalocytes 1+; Schistocytes Rare
[2024-10-11 14:33] LABS: NT Pro B Type Natriuretic Pept 1920 pg/mL (19.9-100); Troponin I < 0.012 ng/mL (0.000-0.034)
--- NOTE | 2024-10-11 14:41 | ED.GENADULT ---
HPI - General Adult General Chief complaint: Fall Stated complaint: fall Time Seen by Provider: 10/11/24 13:26 History of Present Illness HPI narrative: Patient is an 88-year-old female who presents ER after having a fall. Reports she was at her facility in an elevator and then she was on the floor. Denies chest pain. Denies injury from fall. Patient bradycardic but in a sinus rhythm on arrival here. Patient is not anticoagulated. Related Data Home Medications ?Medication ?Instructions ?Recorded ?Confirmed ?Last Taken ?Type carbidopa 25 mg-levodopa 100 mg 1 tablet PO TID 09/08/21 09/25/24 06/28/24 History tablet carbidopa ER 50 mg-levodopa 200 mg 2 tablet PO QHS 09/08/21 09/25/24 06/27/24 History tablet,extended release mirtazapine 15 mg tablet 15 mg PO QHS 06/21/22 09/25/24 06/27/24 History docusate sodium 100 mg capsule 100 mg PO HS PRN constipation 07/24/24 09/25/24 Unknown History (Colace) levothyroxine 25 mcg capsule 50 mcg PO DAILY 08/04/24 09/25/24 Unknown History acetaminophen 500 mg tablet 500 mg PO BID 09/06/24 09/25/24 Unknown History (Tylenol Extra Strength) Allergies Allergy/AdvReac Type Severity Reaction Status Date / Time Sulfa (Sulfonamide Allergy Unknown Hives Verified 08/06/24 10:35 Antibiotics) epinephrine Allergy Unknown Verified 08/06/24 10:35 Review of Systems Review of Systems: All systems reviewed & are unremarkable except as noted in HPI and below Constitutional: Constitutional: Reports no additional constitutional complaints Cardiovascular: Cardiovascular: Reports no additional cardiovascular complaints Respiratory: Respiratory: Reports no additional respiratory complaints [facility] Past Medical History Medical History (Updated 10/11/24 @ 18:25 by Nicko Smith MD) Mitral valve regurgitation moderate to severe Orthostatic hypotension due to Parkinson disease Right-sided heart failure Depression Severe pulmonary hypertension Paroxysmal atrial fibrillation Diastolic dysfunction Colon cancer 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 Dementia progressive memory changes since early 2023 Hearing Loss 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 Thalassemia Hypertension Parkinson disease Surgical History Surgical History (Updated 10/11/24 @ 17:34 by Gail G Gerling, PA-C) History of right hemicolectomy with end-to-end anastomosis for colon cancer History of arthroplasty of right knee History of cataract extraction with lens replacement History of appendectomy History of hysterectomy History of tonsillectomy and adenoidectomy Family History Family History Father Brain tumor Mother Breast cancer Grandparent Diabetes mellitus Son , at age 62 Alcoholism Dilated cardiomyopathy Social History Social History Social History: Healthcare power of insurance attorney: Tara Lock, daughter. Code status: Full code. Smoking status: Never smoker Alcohol intake: never Substance use: never Do You Feel Safe in your Home?: Yes Lack of Transportation: No Lack of Food: Never True Current Housing: I Have Housing Concerned About Future Housing: No Difficulty Paying Gas/Electric Bills: No Difficulty Paying for Meds: No Currently Unemployed: No Education: Associate Degree Difficulty w/ Childcare or Family Care: No Living arrangements: assisted living Additional living arrangements comments: Assisted living at [facility]. She has a daughter and a son. Ambulates with Rollator. Spiritual care concerns: No Exam Narrative: GENERAL: Chronically ill-appearing, well-nourished, and in no acute distress. HEAD: Normocephalic, atraumatic. EYES: PERRL and EOMI. ENT: Mucous membranes moist. NECK: Supple. CHEST: Clear to auscultation. No respiratory distress. HEART: Bradycardic regular. Normal peripheral pulses. ABDOMEN: Soft, nontender, nondistended. EXTREMITIES: Normal range of motion. No edema. SKIN: Warm, dry, no rash. NEURO: Alert and oriented x3. PSYCH: Normal mood and affect. Course Course Emergency Course: Heart rate improving with IV fluid. 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 Amos consulted. Admit to hospitalist service. Will provide gentle hydration. Vital Signs Vital signs: Vital Signs Temperature 97.5 F L 10/11/24 13:12 Pulse Rate 81 10/11/24 13:12 Respiratory Rate 20 10/11/24 13:12 Blood Pressure 94/41 L 10/11/24 13:12 Pulse Oximetry 100 10/11/24 13:12 Temperature 97.5 F L 10/11/24 13:12 Pulse Rate 76 10/11/24 16:45 Respiratory Rate 20 10/11/24 16:45 Blood Pressure 133/65 10/11/24 16:31 Pulse Oximetry 91 10/11/24 15:31 Medical Decision Making Vital Signs Vital Signs: Vital Signs Temperature 97.5 F L 10/11/24 13:12 Pulse Rate 81 10/11/24 13:12 Respiratory Rate 20 10/11/24 13:12 Blood Pressure 94/41 L 10/11/24 13:12 Pulse Oximetry 100 10/11/24 13:12 Temperature 97.5 F L 10/11/24 13:12 Pulse Rate 76 10/11/24 16:45 Respiratory Rate 20 10/11/24 16:45 Blood Pressure 133/65 10/11/24 16:31 Pulse Oximetry 91 10/11/24 15:31 Lab Data 10/11/24 13:55 10/11/24 13:55 Labs: Lab Results 10/11/24 Range/Units 13:55 WBC 6.6 (4.5-10.0) K/mm3 RBC 3.50 L (4.2-5.4) M/mm3 Hgb 7.4 L (12.0-15.0) g/dL Hct 24.3 L (37.0-47.0) % MCV 69.4 L (80-100) fl MCH 21.1 L (26-34) pg MCHC 30.5 L (32-36) g/dl RDW 17.6 H (11.5-14.5) % Plt Count 364 (150-375) k/mm3 MPV 9.2 (7.4-10.4) fl Immature Gran % (Auto) 0.8 H (0-0.5) % Neut % (Auto) 69.2 (45.5-73.1) % Lymph % (Auto) 17.6 L (18.3-44.2) % [place] % (Auto) 8.3 (2.6-8.5) % Eos % (Auto) 3.0 (0-4.4) % Baso % (Auto) 1.1 (0.2-1.2) % Lymph # (Auto) 1.16 (0.9-3.2) K/mm3 [place] # (Auto) 0.6 (0.1-0.6) K/mm3 Eos # (Auto) 0.2 (0-0.3) K/mm3 Baso # (Auto) 0.1 (0.0-0.1) K/mm3 Abs Immat Gran (auto) 0.05 H (0.00-0.031) K/mm3 Absolute Neuts (auto) 4.6 (1.3-6.7) K/mm3 Absolute Nucleated RBC 0.000 (0.0-0.012) K/mm3 Band Neutrophils % Not Reportable Nucleated RBC % 0.0 (0.0-0.2) % Platelet Estimate Slightly increased (Adequate) Hypochromasia 2+ Anisocytosis 2+ Target Cells 1+ Ovalocytes 1+ Acanthocytes (Spur) 1+ Schistocytes Rare PT 12.8 (11.1-14.7) Seconds INR 0.9 APTT 29.4 (22.3-36.8) Seconds Sodium 134 L (137-145) mmol/L Potassium 3.8 (3.4-5.0) mmol/L Chloride 98 (98-107) mmol/L Carbon Dioxide 33 H (22-30) mmol/L Anion Gap 3 L (4-12) mmol/L BUN 28 H (7-17) mg/dL Creatinine 1.10 H (0.7-1.0) mg/dL Estim Creat Clear Calc 26 ml/min Estimated GFR 47 L (59 - ) Glucose 113 H (65-110) mg/dL Calcium 8.2 L (8.4-10.2) mg/dL Total Bilirubin 0.7 (0.2-1.3) mg/dL AST 17 (14-36) U/L ALT 7 (6-35) U/L Alkaline Phosphatase 89 (38-126) U/L Troponin I < 0.012 (0.000-0.034) ng/mL NT-Pro-B Natriuret Pep 1920 H (19.9-100) pg/mL Total Protein 5.0 L (6.3-8.2) g/dL Albumin 2.8 L (3.5-5.1) g/dL Imaging Data Radiologist's impression: ITS Impressions Chest X-Ray 10/11/24 14:01 IMPRESSION: 1. Opacities in the left lower lung zone which appears to increase in part to small left pleural effusion with associated atelectasis and/or pneumonia. 2. Cardiomegaly. Head CT 10/11/24 14:59 IMPRESSION: 1. Normal aging brain. No fracture or acute intracranial process. ECG Data EKG #1: ECG completion date: 10/11/24 ECG completion time: 13:30 EKG Interpretation: bradycardia (42), sinus rhythm, non-specific ST changes, normal QRS and prolonged QT Critical Care Time Critical Care Time Critical Care Time: Yes Total Critical Care Time: 35 Discharge Plan Discharge Clinical Impression: Bradycardia, Dehydration, Syncope, Prolonged QT interval Patient Disposition: Still a Patient Condition: Stable
--- NOTE | 2024-10-11 16:07 | PM.CNCAR ---
Assessment and Plan Assessment and plan (1) Fall: Code(s): W19.XXXA - Unspecified fall, initial encounter Status: Acute Assessment and Plan: Probably orthostatic syncope as she was on Lasix 40 mg PO BID for severe edema of legs that were weeping. Now she has no edema. Will hold off on Lasix and will probably need lower dose upon discharge. (2) Mitral valve regurgitation: Qualifiers: Cardiac valve disease etiology: nonrheumatic Qualified Code(s): I34.0 - Nonrheumatic mitral (valve) insufficiency Code(s): I34.0 - Nonrheumatic mitral (valve) insufficiency Status: Acute Assessment and Plan: Mod-severe. (3) PAF (paroxysmal atrial fibrillation): Code(s): I48.0 - Paroxysmal atrial fibrillation Status: Acute Assessment and Plan: In Sinus rhythm. At times she is bradycardic. [id number] 3. Off Eliquis due to significant nose bleed while on it. Off Amiodarone since being at [facility] recently. Refuses aspirin due to easy bruising and bleeding. History of Present Illness History of Present Illness Consult date/time: 10/11/24 16:07 Reason For Visit: fall Narrative: 88 yr old woman who is my regular cardiology patient presents to ER after a fall. She has a history of PAF, mitral regurgitation, dilated aorta, dementia, Parkinson's disease. States she was at home at [facility] in the elevator alone when she fell. The next thing she knows she was being brought into ambulance and taken to ER. She cannot recall if she had any dizziness prior to falling and she does not realize if she passed out. Currently she feels weak. Denies chest pain. Denies palpitations, dizziness. Previously, she has nose bleeding and going to ER for it and has nasal rocket in place and bleeding has stopped. She reports having sob and edema for last 6 months that has progressively gotten worse to point of weeping from her legs. She is able to walk short distances at [facility]. Cardiovascular Procedures Echo/MUGA:: 06/28/24 Echo: EF 50-55%, mild LVE, diastolic dysfunction with e' .07, RV mild dysfunction, severe LaE, mod KULDEEP, mild AI, mod-severe MR, mod TR, RVSP 68 mmHg, aortic root and ascending aorta mod dilated. Electrophysiology:: 07/19/24 EKG: Sinus bradycardia at 42 bpm, PAC, delayed precordial R/S transition, QTc 464 ms. 07/02/24 EKG: Sinus rhythm, PAC, LVH with ST-T changes, QTc 405 ms. 06/28/24 EKG: Atrial fibrillation at 161 bpm, ST-T wave abnormality- consider inferior ischemia. Review of Systems Review of Systems: All systems reviewed & are unremarkable except as noted in HPI and below Constitutional: Constitutional: Reports as per HPI, Denies chills, Reports fatigue and Denies fever(s) Cardiovascular: Cardiovascular: Reports as per HPI and Denies chest pain Respiratory: Respiratory: Reports as per HPI and Denies dyspnea Gastrointestinal: Gastrointestinal: Reports as per HPI and Denies abdominal pain Genitourinary: Genitourinary: Reports as per HPI and Denies dysuria Musculoskeletal: Musculoskeletal: Reports as per HPI Neurologic: Reports as per HPI, Reports dizziness and Reports syncope PMF Past Medical History Medical History Orthostatic hypotension due to Parkinson disease Right-sided heart failure Depression Severe pulmonary hypertension Paroxysmal atrial fibrillation Diastolic dysfunction Colon cancer 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 Dementia progressive memory changes since early 2023 Hearing Loss 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 Thalassemia Hypertension Parkinson disease Surgical History Surgical History History of hysterectomy History of tonsillectomy and adenoidectomy Status post cataract extraction of both eyes with insertion of intraocular lens H/O colectomy (1995) Right hemicolectomy with end-to-end anastomosis Due to colon cancer, most recent colonoscopy 2010 Knee joint replacement status Hx of appendectomy Family History Family History Father Brain tumor Mother Breast cancer Grandparent Diabetes mellitus Son , at age 62 Alcoholism Dilated cardiomyopathy Social History Social History Social History: Healthcare power of criminal defense attorney: Tara Lock, daughter. Code status: Full code. Smoking status: Never smoker Alcohol intake: never Substance use: never Do You Feel Safe in your Home?: Yes Lack of Transportation: No Lack of Food: Never True Current Housing: I Have Housing Concerned About Future Housing: No Difficulty Paying Gas/Electric Bills: No Difficulty Paying for Meds: No Currently Unemployed: No Education: Associate Degree Difficulty w/ Childcare or Family Care: No Living arrangements: assisted living Additional living arrangements comments: Assisted living at [facility]. She has a daughter and a son. Ambulates with Rollator. Spiritual care concerns: No Meds Home Medications and Allergies Home Medications ?Medication ?Instructions ?Recorded ?Confirmed ?Type carbidopa 25 mg-levodopa 100 mg 1 tablet PO TID 09/08/21 09/25/24 History tablet carbidopa ER 50 mg-levodopa 200 mg 2 tablet PO QHS 09/08/21 09/25/24 History tablet,extended release mirtazapine 15 mg tablet 15 mg PO QHS 06/21/22 09/25/24 History gabapentin 300 mg capsule 300 mg PO BID #120 caps 07/23/24 09/25/24 Rx docusate sodium 100 mg capsule 100 mg PO HS PRN constipation 07/24/24 09/25/24 History (Colace) levothyroxine 25 mcg capsule 50 mcg PO DAILY 08/04/24 09/25/24 History Manual Wheelchair #1 ea 08/27/24 09/25/24 Rx acetaminophen 500 mg tablet 500 mg PO BID 09/06/24 09/25/24 History (Tylenol Extra Strength) indomethacin 50 mg capsule 100 mg (2 x 50 mg) PO QHS #180 caps 09/11/24 09/25/24 Rx furosemide 40 mg tablet 40 mg PO BID #60 tabs 09/25/24 09/25/24 Rx Allergies Allergy/AdvReac Type Severity Reaction Status Date / Time Sulfa (Sulfonamide Allergy Unknown Hives Verified 08/06/24 10:35 Antibiotics) epinephrine Allergy Unknown Verified 08/06/24 10:35 Vital Signs Vital Signs - 24 hr 10/11/24 13:12 10/11/24 13:29 10/11/24 14:00 Temperature 97.5 F L Pulse Rate 81 42 L 41 L Respiratory Rate 20 14 16 Blood Pressure 94/41 L 92/47 L 95/43 L Pulse Oximetry 100 92 97 10/11/24 14:30 10/11/24 15:00 Temperature Pulse Rate 48 L 46 L Respiratory Rate 16 16 Blood Pressure 95/57 L 110/60 Pulse Oximetry 97 96 Exam Const: General: cooperative, healthy appearing and comfortable Resp: Auscultation: clear to auscultation bilaterally, no crackles, no rales, no rhonchi and no wheezes Cardio: Rate: regular rate Rhythm: regular rhythm Heart sounds: no murmurs Peripheral pulses: dorsalis pedis present GI: GI Palp: No abdominal tenderness and Yes Soft to palpation Neuro: General: oriented to person, oriented to place and oriented to time Extrem: Right lower extremity: no edema Left lower extremity: no edema Results Labs and Meds 10/11/24 13:55 10/11/24 13:55 Lab results: Cardiac Enzymes 10/11/24 Range/Units 13:55 AST 17 (14-36) U/L Troponin I < 0.012 (0.000-0.034) ng/mL Coagulation 10/11/24 Range/Units 13:55 PT 12.8 (11.1-14.7) Seconds APTT 29.4 (22.3-36.8) Seconds CBC 10/11/24 Range/Units 13:55 WBC 6.6 (4.5-10.0) K/mm3 RBC 3.50 L (4.2-5.4) M/mm3 Hgb 7.4 L (12.0-15.0) g/dL Hct 24.3 L (37.0-47.0) % Plt Count 364 (150-375) k/mm3 Lymph # (Auto) 1.16 (0.9-3.2) K/mm3 [place] # (Auto) 0.6 (0.1-0.6) K/mm3 Eos # (Auto) 0.2 (0-0.3) K/mm3 Baso # (Auto) 0.1 (0.0-0.1) K/mm3 Comprehensive Metabolic Panel 10/11/24 Range/Units 13:55 Sodium 134 L (137-145) mmol/L Potassium 3.8 (3.4-5.0) mmol/L Chloride 98 (98-107) mmol/L Carbon Dioxide 33 H (22-30) mmol/L BUN 28 H (7-17) mg/dL Creatinine 1.10 H (0.7-1.0) mg/dL Glucose 113 H (65-110) mg/dL Calcium 8.2 L (8.4-10.2) mg/dL AST 17 (14-36) U/L ALT 7 (6-35) U/L Alkaline Phosphatase 89 (38-126) U/L Total Protein 5.0 L (6.3-8.2) g/dL Albumin 2.8 L (3.5-5.1) g/dL Intake and Output 10/11/24 10/11/24 10/11/24 07:59 15:59 23:59 Intake Total 500 Balance 500 Intake: IV 500 Sodium Chloride 0.9% IV 500 ml 500 @ 0 mls/hr .ROUTE .[facility] Rx#:[id number] Patient Weight 10/11/24 23:59 Weight 51.7 kg
--- NOTE | 2024-10-11 16:15 | P.HP_ITS ---
H&P: HPI History of Present Illness Date/Time: 10/11/24 19:00 Chief Complaint: Fall, suspected syncope. Narrative: This is an 88-year-old female with dementia, Parkinson's, hypertension, paroxysmal atrial fibrillation no longer on anticoagulation following a severe episode of epistaxis, pulmonary hypertension, right-sided heart failure, diastolic dysfunction, moderate to severe mitral valve regurgitation, debbie lassemia, melanoma, and trigeminal neurology a who presented to the emergency department via EMS from [facility] for evaluation after a fall and suspected syncope. The patient and her family members provide the following history. She felt fine when she got up this morning and remembers going down to eat breakfast and lunch. Following lunch she got in the elevator to go back to her apartment and that is the last thing she remembers. Another resident found her lying on the ground and is presumed that she had a syncopal episode. Apparently she had the exact same thing happen on Monday as well. It is noted that she was seen in the emergency department at the end of July following an unresponsive episode. She was hypotensive and severely bradycardic at that time and she was transferred to [place] for further evaluation. There was some discussion about possible pacemaker implantation however the patient declined at that time and her heart rate did eventually improve after her amiodarone was discontinued. She was discharged back to her nursing facility on August 20 and she has been doing quite well. More recently she saw her vp of digital marketing, Dr. Amos, in office for follow-up at which time she complained of increasing leg edema with weeping and her furosemide was increased to 40 mg twice a day instead of once a day. She has otherwise been eating and drinking okay and denies fever, chills, sweats, cold and flu symptoms, chest pain, pleuritic pain, palpitations, cough, shortness of breath, nausea, vomiting, diarrhea, and dysuria. In the ED: Blood pressure was 94/41 on arrival with a pulse of 81. She has been intermittently bradycardic since shortly after arrival with a pulse as low as 41 beats per minute. Labs were significant for a hemoglobin of 7.4, MCV 69.4, sodium 134, carbon dioxide 33, BUN 20, creatinine 1.10, proBNP 1920, total protein 5.0, albumin 2.8. Head CT without acute findings. Chest x-ray showed opacities in left lower lung zone with small left pleural effusion with so she had atelectasis and/or pneumonia and cardiomegaly. She was given a L normal saline bolus with improvement in her blood pressure and she is being admitted in this setting for close monitoring and further workup. Review of Systems Review of Systems: 12 systems were reviewed and are negativ e except for as per HPI. 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 Code status: Full code. Smoking status: Never smoker Alcohol intake: never Substance use: never Do You Feel Safe in your Home?: Yes Lack of Transportation: No Lack of Food: Never True Current Housing: I Have Housing Concerned About Future Housing: No Difficulty Paying Gas/Electric Bills: No Difficulty Paying for Meds: No Currently Unemployed: No Education: Trade/Vocational Certificate Difficulty w/ Childcare or Family Care: No Living arrangements: assisted living Additional living arrangements comments: Assisted living at [facility]. She has a daughter and a son. Ambulates with [employer]. Spiritual care concerns: No Meds Home Medications and Allergies Home Medications ?Medication ?Instructions ?Recorded ?Confirmed ?Type carbidopa 25 mg-levodopa 100 mg 1 tablet PO TID 09/08/21 10/11/24 History tablet carbidopa ER 50 mg-levodopa 200 mg 2 tablet PO QHS 09/08/21 10/11/24 History tablet,extended release mirtazapine 15 mg tablet 15 mg PO QHS 06/21/22 10/11/24 History docusate sodium 100 mg capsule 100 mg PO HS PRN constipation 07/24/24 10/11/24 History (Colace) levothyroxine 25 mcg capsule 50 mcg PO DAILY 08/04/24 10/11/24 History Manual Wheelchair #1 ea 08/27/24 10/11/24 Rx acetaminophen 500 mg tablet 500 mg PO BID 09/06/24 10/11/24 History (Tylenol Extra Strength) furosemide 40 mg tablet 40 mg PO BID #60 tabs 09/25/24 10/11/24 Rx amiodarone 100 mg tablet 100 mg PO DAILY 10/11/24 10/11/24 History gabapentin 300 mg capsule 300 mg PO BID 10/11/24 10/11/24 History ondansetron 4 mg disintegrating 4 mg PO Q8H PRN nausea and vomiting 10/11/24 10/11/24 History tablet tramadol 50 mg tablet 50 mg PO Q6H PRN pain 10/11/24 10/11/24 History Allergies Allergy/AdvReac Type Severity Reaction Status Date / Time Sulfa (Sulfonamide Allergy Unknown Hives Verified 08/06/24 10:35 Antibiotics) epinephrine Allergy Unknown Verified 08/06/24 10:35 Vital Signs Vital Signs - 24 hr 10/11/24 13:12 10/11/24 13:29 10/11/24 14:00 Temperature 97.5 F L Pulse Rate 81 42 L 41 L Respiratory Rate 20 14 16 Blood Pressure 94/41 L 92/47 L 95/43 L Pulse Oximetry 100 92 97 10/11/24 14:30 10/11/24 15:00 Temperature Pulse Rate 48 L 46 L Respiratory Rate 16 16 Blood Pressure 95/57 L 110/60 Pulse Oximetry 97 96 Exam Narrative: General: Thin, nontoxic-appearing elderly female sitting up in bed eating a sandwich in no distress. She is hard of hearing. Weight: 53 kg. BMI: 19.4. HEENT: Wearing corrective lenses. PERRL, EOMI. Conjunctiva mildly injected. Sclera anicteric. Moist mucous membranes. Neck: Supple. No JVD. Respiratory: Lungs are clear to auscultation bilaterally. Cardiovascular: Regular rate and rhythm. Systolic murmur at the lower sternal border and apex. Gastrointestinal: Abdomen is soft, nontender, and nondistended with positive bowel sounds. Skin: Warm and dry. No rashes. Skin tear on the left forearm. Extremities: No cyanosis, clubbing, or significant edema. Right radial pulse is and pedal pulses diminished. Hands and feet are warm and perfused. Neurological: Alert. Cranial nerves 2-12 are grossly intact. No gross focal deficits to casual conversation. Psychiatric: Pleasant and cooperative with appropriate mood and affect. H&P: Results Labs Labs: Short CBC 10/11/24 Range/Units 13:55 WBC 6.6 (4.5-10.0) K/mm3 Hgb 7.4 L (12.0-15.0) g/dL Hct 24.3 L (37.0-47.0) % Plt Count 364 (150-375) k/mm3 BMP 10/11/24 13:55 Sodium 134 L Potassium 3.8 Chloride 98 Carbon Dioxide 33 H BUN 28 H Creatinine 1.10 H Glucose 113 H Calcium 8.2 L Cardiac Enzymes 10/11/24 Range/Units 13:55 Troponin I < 0.012 (0.000-0.034) ng/mL Liver Function 10/11/24 Range/Units 13:55 Total Bilirubin 0.7 (0.2-1.3) mg/dL AST 17 (14-36) U/L ALT 7 (6-35) U/L Alkaline Phosphatase 89 (38-126) U/L Albumin 2.8 L (3.5-5.1) g/dL Imaging Chest X-Ray 10/11/24 14:01 IMPRESSION: 1. Opacities in the left lower lung zone which appears to increase in part to small left pleural effusion with associated atelectasis and/or pneumonia. 2. Cardiomegaly. Head CT 10/11/24 14:59 IMPRESSION: 1. Normal aging brain. No fracture or acute intracranial process. Assessment and Plan Assessment and plan (1) Syncope: Code(s): R55 - Syncope and collapse Status: Acute (2) Bradycardia: Code(s): R00.1 - Bradycardia, unspecified Status: Acute (3) Renal failure: Code(s): N19 - Unspecified kidney failure Status: Acute (4) Paroxysmal atrial fibrillation: Code(s): I48.0 - Paroxysmal atrial fibrillation Status: Acute (5) Mitral valve regurgitation: Qualifiers: Cardiac valve disease etiology: nonrheumatic Qualified Code(s): I34.0 - Nonrheumatic mitral (valve) insufficiency Code(s): I34.0 - Nonrheumatic mitral (valve) insufficiency Status: Acute (6) Right-sided heart failure: Qualifiers: Heart failure chronicity: acute on chronic Qualified Code(s): I50.813 - Acute on chronic right heart failure Code(s): I50.810 - Right heart failure, unspecified Status: Acute (7) Diastolic dysfunction: Code(s): I51.89 - Other ill-defined heart diseases Status: Acute (8) Pulmonary hypertension: Code(s): I27.20 - Pulmonary hypertension, unspecified Status: Acute (9) Thalassemia: Qualifiers: Thalassemia type: unspecified type Qualified Code(s): D56.9 - Thalassemia, unspecified Code(s): D56.9 - Thalassemia, unspecified Status: Acute (10) Parkinson disease: Qualifiers: Dyskinesia presence: unspecified whether dyskinesia Fluctuating manifestations: unspecified whether manifestations fluctuate Qualified Code(s): G20.A1 - Parkinson's disease without dyskinesia, without mention of fluctuations Code(s): G20 - Parkinson's disease Status: Acute Plan The patient presented to the emergency department for evaluation after a fall and suspected syncopal episode as detailed in HPI. Labs, imaging, EKG, and all reports were personally reviewed. She did not injure herself in the falls thankfully. Etiology of the syncopal episode is not entirely clear but may be due to orthostatic hypotension given her history of the same and underlying Parkinson's disease, intravascular volume depletion as she has recently increased her furosemide to 40 mg twice a day due to lower extremity edema which has improved, or even related to bradycardia. Check orthostatic vital signs. Continue judicious IV fluid rehydration overnight with close monitoring of volume status. Continue to monitor on telemetry. Echocardiogram done a few months ago was reviewed; this does not need to be repeated. Check carotid Doppler ultrasound. Creatinine should improve with IV fluids and holding diuretics for now. Continue levothyroxine and check TSH. Anemia stable on review of previous labs. Her home medications will be reviewed and resumed as appropriate. Findings and treatment plan were discussed with the patient. Questions were solicited and answered to satisfaction. The patient's medical management will be taken over by the hospitalist team in a.m. Quality VTE Prophylaxis VTE prophylaxis: mechanical ordered If No VTE Prophylaxis Answer both mechanical and pharmacologic: Reason no pharmacologic proph: medical contraindication (fall risk) The patient has been admitted under observation status. Hospitalist [facility] Advance Care Plan I have confirmed that the patient's Advanced Care Plan is present, code status is documented, or surrogate decision maker is listed in patient medical record.: Yes Medication Reconciliation I have utilized all available resources to obtain, update and review the patients current medications (includes all prescriptions, OTC, herbals, cannabis, and nutritional supplements).: Yes
[2024-10-11] MEDS: SODIUM CHLORIDE 0.9% IV 1,000 ML 75 ML IV CONT ×2 (16:35→16:36)
--- NOTE | 2024-10-11 16:46 | ECG_ITS ---
Test Date: 2024-10-11 16:49:19 Measurements Intervals Mcleod Rate: 61 P: 74 MD: 198 QRS: 10 QRSD: 106 T: 74 QT: 466 QTc: 471 Interpretive Statements SINUS RHYTHM WITH FREQUENT SUPRAVENTRICULAR PREMATURE COMPLEXES LEFT VENTRICULAR HYPERTROPHY AND ST-T CHANGE [VOLTAGE CRITERIA PLUS ST/T ABNORMALITY] ABNORMAL ECG Compared to ECG 10/11/2024 13:30:36 ATRIAL ECTOPIC ACTIVITY IS NOW PRESENT Electronically Signed On 10-12-2024 07:37:54 CDT by Bakari Lott M.D.
[2024-10-11 17:13] LABS: Troponin I < 0.012 ng/mL (0.000-0.034)
--- NOTE | 2024-10-11 17:18 | PC.NURSE ---
Dinner tray ordered for pt.
[2024-10-11 20:41] LABS: Troponin I < 0.012 ng/mL (0.000-0.034)
[2024-10-11] MEDS: CARBIDOPA/LEVODOPA 25/100 MG CR TABLET 2 TABLET PO (22:32)
[2024-10-11] MEDS: MIRTAZAPINE 15 MG TABLET PO (22:32)
[2024-10-12] VITALS (19 sets, daily range): BP systolic 112–133; BP diastolic 50–65; PULSE 61–76; RESP 18; TEMP 36.8–37.1; O2SAT 96–99
[2024-10-12 04:33] LABS: Basophils Absolute Auto 0.1 K/mm3 (0.0-0.1); Basophils Percent Auto 0.7 % (0.2-1.2); Eosinophils Absolute Auto 0.2 K/mm3 (0-0.3); Eosinophils Percent Auto 1.7 % (0-4.4); Hematocrit 23.2 % (37.0-47.0); Hemoglobin 7.1 g/dL (12.0-15.0); Immature Granulocyte Absolute 0.08 K/mm3 (0.00-0.031); Immature Granulocyte Percent A 0.8 % (0-0.5); Lymphocytes Absolute Auto 0.82 K/mm3 (0.9-3.2); Lymphocytes Percent Auto 8.1 % (18.3-44.2); Mean Corpuscular HGB Conc 30.6 g/dl (32-36); Mean Corpuscular Hemoglobin 21.1 pg (26-34); Mean Corpuscular Volume 68.8 fl (80-100); Mean Platelet Volume 9.6 fl (7.4-10.4); Monocytes Absolute Auto 0.7 K/mm3 (0.1-0.6); Monocytes Percent Auto 6.7 % (2.6-8.5); Neutrophils Absolute Auto 8.4 K/mm3 (1.3-6.7); Platelet Count Result 388 k/mm3 (150-375); Red Blood Count 3.37 M/mm3 (4.2-5.4); Red Cell Distribution Width 17.5 % (11.5-14.5); White Blood Count 10.2 K/mm3 (4.5-10.0)
[2024-10-12 04:50] LABS: Anion Gap 2 mmol/L (4-12); Blood Urea Nitrogen 25 mg/dL (7-17); Calcium 8.1 mg/dL (8.4-10.2); Carbon Dioxide 30 mmol/L (22-30); Chloride 106 mmol/L (98-107); Creatine Kinase < 20 U/L (30-135); Estimated CRCL calculation 31 ml/min; Estimated Glomerular Filt Rate 58; Glucose 81 mg/dL (65-110); Magnesium 2.5 mg/dL (1.6-2.3); Potassium 4.1 mmol/L (3.4-5.0); Sodium 138 mmol/L (137-145)
[2024-10-12 05:01] LABS: Platelet Estimate Adequate (Adequate)
[2024-10-12 05:02] LABS: Anisocytosis 2+; Hypochromasia 1+; Schistocytes Rare
[2024-10-12 05:03] LABS: Ovalocytes 1+
[2024-10-12] MEDS: LEVOTHYROXINE SODIUM 50 MCG TABLET PO (07:00)
--- NOTE | 2024-10-12 07:44 | P.PNCA_ITS ---
Progress Note: A&P Assessment and Plan (1) Fall: Code(s): W19.XXXA - Unspecified fall, initial encounter Status: Acute Assessment and Plan: Probably orthostatic syncope as she was on Lasix 40 mg PO BID for severe edema of legs that were weeping. Now she has no edema. Will hold off on Lasix and will probably need lower dose like 20 mg daily upon discharge. Will sign off, please call with any questions. Have her keep regular f/u with me. (2) Mitral valve regurgitation: Qualifiers: Cardiac valve disease etiology: nonrheumatic Qualified Code(s): I34.0 - Nonrheumatic mitral (valve) insufficiency Code(s): I34.0 - Nonrheumatic mitral (valve) insufficiency Status: Acute Assessment and Plan: Mod-severe. (3) PAF (paroxysmal atrial fibrillation): Code(s): I48.0 - Paroxysmal atrial fibrillation Status: Acute Assessment and Plan: In Sinus rhythm. At times she is bradycardic. [id number] 3. Off Eliquis due to significant nose bleed while on it. Off Amiodarone since being at [facility] recently. Refuses aspirin due to easy bruising and bleeding. Subjective Date/time seen: 10/12/24 07:44 Interval history: Denies chest pain or sob or dizziness. Exam Const: General: cooperative, healthy appearing and comfortable Orientation/consciousness: oriented to person, oriented to place and oriented to time Resp: Auscultation: clear to auscultation bilaterally, no crackles, no rales, no rhonchi and no wheezes Cardio: Rate: regular rate Rhythm: regular rhythm Heart sounds: no murmurs Peripheral pulses: dorsalis pedis present Neuro: General: oriented to person, oriented to place and oriented to time Extrem: Right lower extremity: no edema Left lower extremity: no edema Objective Data Vital Signs Vital Signs: Vital Signs - 24 hr 10/11/24 13:12 10/11/24 13:29 10/11/24 14:00 Temperature 97.5 F L Pulse Rate 81 42 L 41 L Respiratory Rate 20 14 16 Blood Pressure 94/41 L 92/47 L 95/43 L Pulse Oximetry 100 92 97 Oxygen Delivery 10/11/24 14:30 10/11/24 15:00 10/11/24 15:21 Temperature Pulse Rate 48 L 46 L 55 L Respiratory Rate 16 16 17 Blood Pressure 95/57 L 110/60 116/40 L Pulse Oximetry 97 96 93 Oxygen Delivery 10/11/24 15:31 10/11/24 16:01 10/11/24 16:15 Temperature Pulse Rate 52 L 61 62 Respiratory Rate 20 19 16 Blood Pressure 109/48 L 133/58 L Pulse Oximetry 91 Oxygen Delivery 10/11/24 16:16 10/11/24 16:30 10/11/24 16:31 Temperature Pulse Rate 68 63 67 Respiratory Rate 15 18 24 H Blood Pressure 126/52 L 133/65 Pulse Oximetry Oxygen Delivery 10/11/24 16:45 10/11/24 20:00 10/11/24 20:00 Temperature 97.8 F Pulse Rate 76 64 Respiratory Rate 20 20 Blood Pressure 134/51 L 134/51 L Pulse Oximetry 96 Oxygen Delivery 10/11/24 20:00 10/11/24 20:00 10/11/24 20:00 Temperature Pulse Rate 61 Respiratory Rate Blood Pressure 140/59 L Pulse Oximetry Oxygen Delivery Room Air 10/11/24 22:00 10/11/24 22:08 10/11/24 23:47 Temperature 98.8 F Pulse Rate 64 66 Respiratory Rate 18 Blood Pressure 100/52 L Pulse Oximetry 96 96 Oxygen Delivery Room Air 10/12/24 00:00 10/12/24 00:00 10/12/24 02:00 Temperature Pulse Rate 67 68 Respiratory Rate Blood Pressure Pulse Oximetry Oxygen Delivery Room Air 10/12/24 04:00 10/12/24 04:00 10/12/24 04:00 Temperature 98.7 F Pulse Rate 63 63 Respiratory Rate 18 Blood Pressure 120/51 L Pulse Oximetry 98 Oxygen Delivery Room Air 10/12/24 06:00 10/12/24 07:31 Temperature 98.6 F Pulse Rate 64 63 Respiratory Rate 18 Blood Pressure 126/54 L Pulse Oximetry 99 Oxygen Delivery Intake/Output Intake/Output: Intake & Output 10/09/24 10/10/24 10/11/24 10/12/24 23:59 23:59 23:59 23:59 Intake Total 1075 150 Balance 1075 150 Meds/Results Medications: Active Medications Generic Name Dose Route Start Last Admin Trade Name Freq PRN Reason Stop Dose Admin Acetaminophen 650 mg 10/11/24 17:48 Acetaminophen 325 Mg Tablet PO Q6H PRN Mild Pain (1-3) or Fever Carbidopa/Levodopa 3 tablet 10/12/24 08:00 Carbidopa/Levodopa 25/100 Mg Tablet PO 0800,1200,1700 LIZA Carbidopa/Levodopa 2 tablet 10/11/24 21:05 10/11/24 22:32 Carbidopa/Levodopa 25/100 Mg Cr Tablet PO 2 tablet QHS LIZA Administration Docusate Sodium 100 mg 10/11/24 21:02 Docusate Sodium 100 Mg Capsule PO HS PRN constipation Gabapentin 300 mg 10/12/24 08:00 Gabapentin 300 Mg Capsule PO BID@0800,1600 LIZA Levothyroxine Sodium 50 mcg 10/12/24 06:30 10/12/24 07:00 Levothyroxine Sodium 50 Mcg Tablet PO 50 mcg DAILY@0630 LIAZ Administration Mirtazapine 15 mg 10/11/24 21:00 10/11/24 22:32 Mirtazapine 15 Mg Tablet PO 15 mg QHS LIZA Administration Ondansetron HCl 4 mg 10/11/24 16:16 Ondansetron Inj 4 Mg/2 Ml Vial IV PUSH Q4H PRN Nausea Tramadol HCl 50 mg 10/11/24 21:02 Tramadol Hcl (*Crx) 50 Mg Tablet PO Q6H PRN moderate pain Radiology Results: ITS Impressions Chest X-Ray 10/11/24 14:01 IMPRESSION: 1. Opacities in the left lower lung zone which appears to increase in part to small left pleural effusion with associated atelectasis and/or pneumonia. 2. Cardiomegaly. Head CT 10/11/24 14:59 IMPRESSION: 1. Normal aging brain. No fracture or acute intracranial process. Labs Labs: Laboratory Results - last 24 hr 10/11/24 10/11/24 10/11/24 13:55 16:44 20:14 WBC 6.6 RBC 3.50 L Hgb 7.4 L Hct 24.3 L MCV 69.4 L MCH 21.1 L MCHC 30.5 L RDW 17.6 H Plt Count 364 MPV 9.2 Immature Gran % (Auto) 0.8 H Neut % (Auto) 69.2 Lymph % (Auto) 17.6 L [place] % (Auto) 8.3 Eos % (Auto) 3.0 Baso % (Auto) 1.1 Lymph # (Auto) 1.16 [place] # (Auto) 0.6 Eos # (Auto) 0.2 Baso # (Auto) 0.1 Abs Immat Gran (auto) 0.05 H Absolute Neuts (auto) 4.6 Absolute Nucleated RBC 0.000 Band Neutrophils % Not Reportable Nucleated RBC % 0.0 Platelet Estimate Slightly increased Hypochromasia 2+ Anisocytosis 2+ Target Cells 1+ Ovalocytes 1+ Acanthocytes (Spur) 1+ Schistocytes Rare PT 12.8 INR 0.9 APTT 29.4 Sodium 134 L Potassium 3.8 Chloride 98 Carbon Dioxide 33 H Anion Gap 3 L BUN 28 H Creatinine 1.10 H Estim Creat Clear Calc 26 Estimated GFR 47 L Glucose 113 H Calcium 8.2 L Magnesium Total Bilirubin 0.7 AST 17 ALT 7 Alkaline Phosphatase 89 Total Creatine Kinase Troponin I < 0.012 < 0.012 < 0.012 NT-Pro-B Natriuret Pep 1920 H Total Protein 5.0 L Albumin 2.8 L TSH (Reflex) 10/12/24 04:12 WBC 10.2 H RBC 3.37 L Hgb 7.1 L Hct 23.2 L MCV 68.8 L MCH 21.1 L MCHC 30.6 L RDW 17.5 H Plt Count 388 H MPV 9.6 Immature Gran % (Auto) 0.8 H Neut % (Auto) 82.0 H Lymph % (Auto) 8.1 L [place] % (Auto) 6.7 Eos % (Auto) 1.7 Baso % (Auto) 0.7 Lymph # (Auto) 0.82 L [place] # (Auto) 0.7 H Eos # (Auto) 0.2 Baso # (Auto) 0.1 Abs Immat Gran (auto) 0.08 H Absolute Neuts (auto) 8.4 H Absolute Nucleated RBC 0.000 Band Neutrophils % Not Reportable Nucleated RBC % 0.0 Platelet Estimate Adequate Hypochromasia 1+ Anisocytosis 2+ Target Cells Ovalocytes 1+ Acanthocytes (Spur) Schistocytes Rare PT INR APTT Sodium 138 Potassium 4.1 Chloride 106 Carbon Dioxide 30 Anion Gap 2 L BUN 25 H Creatinine 0.92 Estim Creat Clear Calc 31 Estimated GFR 58 L Glucose 81 Calcium 8.1 L Magnesium 2.5 H Total Bilirubin AST ALT Alkaline Phosphatase Total Creatine Kinase < 20 L Troponin I NT-Pro-B Natriuret Pep Total Protein Albumin TSH (Reflex) 3.370
[2024-10-12] MEDS: CARBIDOPA/LEVODOPA 25/100 MG TABLET 3 TABLET PO ×3 (08:51→16:27)
[2024-10-12] MEDS: GABAPENTIN 300 MG CAPSULE PO ×2 (08:52→16:27)
--- NOTE | 2024-10-12 14:02 | PCPTNOTE ---
Just finished with OT 1402, too tired to participate with PT now. Will follow.
--- NOTE | 2024-10-12 14:57 | PM.IMPN ---
Progress Note: A&P Assessment and Plan (1) Syncope: Code(s): R55 - Syncope and collapse Status: Acute (2) Bradycardia: Code(s): R00.1 - Bradycardia, unspecified Status: Acute (3) Renal failure: Code(s): N19 - Unspecified kidney failure Status: Acute (4) Paroxysmal atrial fibrillation: Code(s): I48.0 - Paroxysmal atrial fibrillation Status: Acute (5) Mitral valve regurgitation: Qualifiers: Cardiac valve disease etiology: nonrheumatic Qualified Code(s): I34.0 - Nonrheumatic mitral (valve) insufficiency Code(s): I34.0 - Nonrheumatic mitral (valve) insufficiency Status: Acute (6) Right-sided heart failure: Qualifiers: Heart failure chronicity: acute on chronic Qualified Code(s): I50.813 - Acute on chronic right heart failure Code(s): I50.810 - Right heart failure, unspecified Status: Acute (7) Diastolic dysfunction: Code(s): I51.89 - Other ill-defined heart diseases Status: Acute (8) Pulmonary hypertension: Code(s): I27.20 - Pulmonary hypertension, unspecified Status: Acute (9) Thalassemia: Qualifiers: Thalassemia type: unspecified type Qualified Code(s): D56.9 - Thalassemia, unspecified Code(s): D56.9 - Thalassemia, unspecified Status: Acute (10) Parkinson disease: Qualifiers: Dyskinesia presence: unspecified whether dyskinesia Fluctuating manifestations: unspecified whether manifestations fluctuate Qualified Code(s): G20.A1 - Parkinson's disease without dyskinesia, without mention of fluctuations Code(s): G20 - Parkinson's disease Status: Acute Plan Syncope likely from overdiuresis and possible GI bleed patient was started recently on Lasix 40mg bid up from 20 for edema and patient is not longer edematous Also Hb this mornign 7.1, Iron panel and FOBT ordered Started on PPI and GI consulted cardiology eval noted Carotid doppler pending Parkinson's disease with oethostatic hypotension PAfib COntineu Amiodarone Not on AC, monitor Diastolic CHF hold lasix and continue Lasix at 20mg at discharge continue monitoring Depression contineu home meds Right heart failure and pu, hypertension continue above diuresis as above Hypertension Titrate home meds with clinical course mitral valve regurgitation F/u with cardiology DVT prophylaxis on SCDs, No AC until GI bleed ruled out Subjective Date/time seen: 10/12/24 14:57 Interval history: Comfortable at bedside Review of Systems Review of Systems: 12 systems were reviewed and are negative except for as per HPI. Exam Narrative: General: Thin, nontoxic-appearing elderly female sitting up in bed eating a sandwich in no distress. She is hard of hearing. Weight: 53 kg. BMI: 19.4. HEENT: Wearing corrective lenses. PERRL, EOMI. Conjunctiva mildly injected. Sclera anicteric. Moist mucous membranes. Neck: Supple. No JVD. Respiratory: Lungs are clear to auscultation bilaterally. Cardiovascular: Regular rate and rhythm. Systolic murmur at the lower sternal border and apex. Gastrointestinal: Abdomen is soft, nontender, and nondistended with positive bowel sounds. Skin: Warm and dry. No rashes. Skin tear on the left forearm. Extremities: No cyanosis, clubbing, or significant edema. Right radial pulse is and pedal pulses diminished. Hands and feet are warm and perfused. Neurological: Alert. Cranial nerves 2-12 are grossly intact. No gross focal deficits to casual conversation. Psychiatric: Pleasant and cooperative with appropriate mood and affect. Objective Data Vital Signs Vital Signs: Vital Signs - 24 hr 10/11/24 15:00 10/11/24 15:21 10/11/24 15:31 Temperature Pulse Rate 46 L 55 L 52 L Respiratory Rate 16 17 20 Blood Pressure 110/60 116/40 L 109/48 L Pulse Oximetry 96 93 91 Oxygen Delivery 10/11/24 16:01 10/11/24 16:15 10/11/24 16:16 Temperature Pulse Rate 61 62 68 Respiratory Rate 19 16 15 Blood Pressure 133/58 L 126/52 L Pulse Oximetry Oxygen Delivery 10/11/24 16:30 10/11/24 16:31 10/11/24 16:45 Temperature Pulse Rate 63 67 76 Respiratory Rate 18 24 H 20 Blood Pressure 133/65 Pulse Oximetry Oxygen Delivery 10/11/24 20:00 10/11/24 20:00 10/11/24 20:00 Temperature 97.8 F Pulse Rate 64 Respiratory Rate 20 Blood Pressure 134/51 L 134/51 L 140/59 L Pulse Oximetry 96 Oxygen Delivery 10/11/24 20:00 10/11/24 20:00 10/11/24 22:00 Temperature Pulse Rate 61 64 Respiratory Rate Blood Pressure Pulse Oximetry Oxygen Delivery Room Air 10/11/24 22:08 10/11/24 23:47 10/12/24 00:00 Temperature 98.8 F Pulse Rate 66 Respiratory Rate 18 Blood Pressure 100/52 L Pulse Oximetry 96 96 Oxygen Delivery Room Air Room Air 10/12/24 00:00 10/12/24 02:00 10/12/24 04:00 Temperature 98.7 F Pulse Rate 67 68 63 Respiratory Rate 18 Blood Pressure 120/51 L Pulse Oximetry 98 Oxygen Delivery 10/12/24 04:00 10/12/24 04:00 10/12/24 06:00 Temperature Pulse Rate 63 64 Respiratory Rate Blood Pressure Pulse Oximetry Oxygen Delivery Room Air 10/12/24 07:31 10/12/24 12:00 10/12/24 12:30 Temperature 98.6 F 98.4 F Pulse Rate 63 63 Respiratory Rate 18 18 Blood Pressure 126/54 L 112/50 L 112/50 L Pulse Oximetry 99 98 Oxygen Delivery 10/12/24 12:42 10/12/24 12:43 10/12/24 13:40 Temperature Pulse Rate Respiratory Rate Blood Pressure 127/65 121/56 L Pulse Oximetry Oxygen Delivery Room Air Intake/Output Intake/Output: Intake & Output 10/09/24 10/10/24 10/11/24 10/12/24 23:59 23:59 23:59 23:59 Intake Total 1075 590 Balance 1075 590 Meds/Results Medications: Active Medications Generic Name Dose Route Start Last Admin Trade Name Thorq PRN Reason Stop Dose Admin Acetaminophen 650 mg 10/11/24 17:48 Acetaminophen 325 Mg Tablet PO Q6H PRN Mild Pain (1-3) or Fever Carbidopa/Levodopa 3 tablet 10/12/24 08:00 10/12/24 08:51 Carbidopa/Levodopa 25/100 Mg Tablet PO 3 tablet 0800,1200,1700 LIZA Administration Carbidopa/Levodopa 2 tablet 10/11/24 21:05 10/11/24 22:32 Carbidopa/Levodopa 25/100 Mg Cr Tablet PO 2 tablet QHS LIZA Administration Docusate Sodium 100 mg 10/11/24 21:02 Docusate Sodium 100 Mg Capsule PO HS PRN constipation Gabapentin 300 mg 10/12/24 08:00 10/12/24 08:52 Gabapentin 300 Mg Capsule PO 300 mg BID@0800,1600 LIZA Administration Levothyroxine Sodium 50 mcg 10/12/24 06:30 10/12/24 07:00 Levothyroxine Sodium 50 Mcg Tablet PO 50 mcg DAILY@0630 LIZA Administration Mirtazapine 15 mg 10/11/24 21:00 10/11/24 22:32 Mirtazapine 15 Mg Tablet PO 15 mg QHS LIZA Administration Ondansetron HCl 4 mg 10/11/24 16:16 Ondansetron Inj 4 Mg/2 Ml Vial IV PUSH Q4H PRN Nausea Tramadol HCl 50 mg 10/11/24 21:02 Tramadol Hcl (*Crx) 50 Mg Tablet PO Q6H PRN moderate pain Radiology Results: ITS Impressions Chest X-Ray 10/11/24 14:01 IMPRESSION: 1. Opacities in the left lower lung zone which appears to increase in part to small left pleural effusion with associated atelectasis and/or pneumonia. 2. Cardiomegaly. Head CT 10/11/24 14:59 IMPRESSION: 1. Normal aging brain. No fracture or acute intracranial process. Carotid Doppler Study 10/12/24 10:09 IMPRESSION: 1. Less than 50% stenosis in the right internal carotid artery by sonographic criteria. 2. Less than 50% stenosis in the left internal carotid artery by sonographic criteria. Labs Labs: Laboratory Results - last 24 hr 10/11/24 10/11/24 10/12/24 16:44 20:14 04:12 WBC 10.2 H RBC 3.37 L Hgb 7.1 L Hct 23.2 L MCV 68.8 L MCH 21.1 L MCHC 30.6 L RDW 17.5 H Plt Count 388 H MPV 9.6 Immature Gran % (Auto) 0.8 H Neut % (Auto) 82.0 H Lymph % (Auto) 8.1 L [place] % (Auto) 6.7 Eos % (Auto) 1.7 Baso % (Auto) 0.7 Lymph # (Auto) 0.82 L [place] # (Auto) 0.7 H Eos # (Auto) 0.2 Baso # (Auto) 0.1 Abs Immat Gran (auto) 0.08 H Absolute Neuts (auto) 8.4 H Absolute Nucleated RBC 0.000 Band Neutrophils % Not Reportable Nucleated RBC % 0.0 Platelet Estimate Adequate Hypochromasia 1+ Anisocytosis 2+ Ovalocytes 1+ Schistocytes Rare Sodium 138 Potassium 4.1 Chloride 106 Carbon Dioxide 30 Anion Gap 2 L BUN 25 H Creatinine 0.92 Estim Creat Clear Calc 31 Estimated GFR 58 L Glucose 81 Calcium 8.1 L Magnesium 2.5 H Total Creatine Kinase < 20 L Troponin I < 0.012 < 0.012 TSH (Reflex) 3.370 Quality VTE Prophylaxis VTE prophylaxis: mechanical ordered
[2024-10-12 15:36] LABS: Iron 47 ug/dL (37-170)
[2024-10-12 15:45] LABS: Percent Iron Saturation 17 % (20-50)
[2024-10-12] MEDS: PANTOPRAZOLE SODIUM IV 40 MG VIAL IV PUSH (20:09)
[2024-10-12] MEDS: MIRTAZAPINE 15 MG TABLET PO (20:10)
[2024-10-12] MEDS: CARBIDOPA/LEVODOPA 25/100 MG CR TABLET 2 TABLET PO (20:10)
[2024-10-13] VITALS (14 sets, daily range): BP systolic 85–136; BP diastolic 48–66; PULSE 48–109; RESP 16–24; TEMP 36.3–36.7; O2SAT 94–100
[2024-10-13] MEDS: LEVOTHYROXINE SODIUM 50 MCG TABLET PO (06:43)
[2024-10-13] MEDS: GABAPENTIN 300 MG CAPSULE PO ×2 (08:30→15:36)
[2024-10-13] MEDS: PANTOPRAZOLE SODIUM IV 40 MG VIAL IV PUSH ×2 (08:30→22:35)
[2024-10-13] MEDS: CARBIDOPA/LEVODOPA 25/100 MG TABLET 3 TABLET PO ×3 (08:30→16:48)
[2024-10-13] MEDS: AMIODARONE HCL 100 MG TABLET PO (08:31)
[2024-10-13] MEDS: FUROSEMIDE 20 MG TABLET PO (08:31)
[2024-10-13] MEDS: IRON SUCROSE COMPLEX 400 MG, IRON SUCROSE COMPLEX 100 MG in SODIUM CHLORIDE 0.9% IV 250 ML 78.57 MG IVPB (08:32)
[2024-10-13 09:14] LABS: Basophils Absolute Auto 0.1 K/mm3 (0.0-0.1); Basophils Percent Auto 0.7 % (0.2-1.2); Eosinophils Absolute Auto 0.2 K/mm3 (0-0.3); Eosinophils Percent Auto 2.2 % (0-4.4); Hematocrit 25.3 % (37.0-47.0); Hemoglobin 7.8 g/dL (12.0-15.0); Immature Granulocyte Absolute 0.07 K/mm3 (0.00-0.031); Immature Granulocyte Percent A 0.7 % (0-0.5); Lymphocytes Absolute Auto 0.96 K/mm3 (0.9-3.2); Lymphocytes Percent Auto 10.1 % (18.3-44.2); Mean Corpuscular HGB Conc 30.8 g/dl (32-36); Mean Corpuscular Hemoglobin 21.5 pg (26-34); Mean Corpuscular Volume 69.7 fl (80-100); Mean Platelet Volume 8.9 fl (7.4-10.4); Monocytes Absolute Auto 0.7 K/mm3 (0.1-0.6); Monocytes Percent Auto 7.7 % (2.6-8.5); Neutrophils Absolute Auto 7.5 K/mm3 (1.3-6.7); Neutrophils Percent Auto 78.6 % (45.5-73.1); Platelet Count Result 409 k/mm3 (150-375); Red Blood Count 3.63 M/mm3 (4.2-5.4); White Blood Count 9.5 K/mm3 (4.5-10.0)
[2024-10-13 09:41] LABS: Acanthocytes 1+; Anisocytosis 1+; Burr Cells 1+; Hypochromasia 1+; Ovalocytes 1+; Platelet Estimate Increased (Adequate); Poikilocytosis 1+; Schistocytes Rare; Target Cells 1+; Tear Drop Cells 1+
--- NOTE | 2024-10-13 10:02 | PM.IMPN ---
Progress Note: A&P Assessment and Plan (1) Syncope: Code(s): R55 - Syncope and collapse Status: Acute (2) Bradycardia: Code(s): R00.1 - Bradycardia, unspecified Status: Acute (3) Renal failure: Code(s): N19 - Unspecified kidney failure Status: Acute (4) Paroxysmal atrial fibrillation: Code(s): I48.0 - Paroxysmal atrial fibrillation Status: Acute (5) Mitral valve regurgitation: Qualifiers: Cardiac valve disease etiology: nonrheumatic Qualified Code(s): I34.0 - Nonrheumatic mitral (valve) insufficiency Code(s): I34.0 - Nonrheumatic mitral (valve) insufficiency Status: Acute (6) Right-sided heart failure: Qualifiers: Heart failure chronicity: acute on chronic Qualified Code(s): I50.813 - Acute on chronic right heart failure Code(s): I50.810 - Right heart failure, unspecified Status: Acute (7) Diastolic dysfunction: Code(s): I51.89 - Other ill-defined heart diseases Status: Acute (8) Pulmonary hypertension: Code(s): I27.20 - Pulmonary hypertension, unspecified Status: Acute (9) Thalassemia: Qualifiers: Thalassemia type: unspecified type Qualified Code(s): D56.9 - Thalassemia, unspecified Code(s): D56.9 - Thalassemia, unspecified Status: Acute (10) Parkinson disease: Qualifiers: Dyskinesia presence: unspecified whether dyskinesia Fluctuating manifestations: unspecified whether manifestations fluctuate Qualified Code(s): G20.A1 - Parkinson's disease without dyskinesia, without mention of fluctuations Code(s): G20 - Parkinson's disease Status: Acute Plan Syncope likely from overdiuresis and possible GI bleed patient was started recently on Lasix 40mg bid up from 20 for edema and patient is not longer edematous Hb 7.8, Iron panel and FOBT ordered Started on PPI and GI consulted cardiology eval noted Carotid doppler unremarkable Iron deficiency anemia Hb 7.8, Isat 17 started on IV Iron 500/1000 FOBT pending GI consulted monitor Parkinson's disease with oethostatic hypotension PAfib COntineu Amiodarone Not on AC, monitor Diastolic CHF Stopped Lasix 40mg bid continue 20mg daily per cards continue monitoring Depression contineu home meds Right heart failure and pu, hypertension continue above diuresis as above Hypertension Titrate home meds with clinical course mitral valve regurgitation F/u with cardiology DVT prophylaxis on SCDs, No AC until GI bleed ruled out Subjective Date/time seen: 10/13/24 10:02 Interval history: Comfortable at bedside Review of Systems Review of Systems: 12 systems were reviewed and are negative except for as per HPI. Exam Narrative: General: Thin, nontoxic-appearing elderly female sitting up in bed eating a sandwich in no distress. She is hard of hearing. Weight: 53 kg. BMI: 19.4. HEENT: Wearing corrective lenses. PERRL, EOMI. Conjunctiva mildly injected. Sclera anicteric. Moist mucous membranes. Neck: Supple. No JVD. Respiratory: Lungs are clear to auscultation bilaterally. Cardiovascular: Regular rate and rhythm. Systolic murmur at the lower sternal border and apex. Gastrointestinal: Abdomen is soft, nontender, and nondistended with positive bowel sounds. Skin: Warm and dry. No rashes. Skin tear on the left forearm. Extremities: No cyanosis, clubbing, or significant edema. Right radial pulse is and pedal pulses diminished. Hands and feet are warm and perfused. Neurological: Alert. Cranial nerves 2-12 are grossly intact. No gross focal deficits to casual conversation. Psychiatric: Pleasant and cooperative with appropriate mood and affect. Objective Data Vital Signs Vital Signs: Vital Signs - 24 hr 10/12/24 12:00 10/12/24 12:00 10/12/24 12:00 Temperature 98.4 F Pulse Rate 63 71 64 Respiratory Rate 18 18 Blood Pressure 112/50 L Pulse Oximetry 98 99 Oxygen Delivery Room Air 10/12/24 12:30 10/12/24 12:42 10/12/24 12:43 Temperature Pulse Rate Respiratory Rate Blood Pressure 112/50 L 127/65 121/56 L Pulse Oximetry Oxygen Delivery 10/12/24 13:40 10/12/24 14:00 10/12/24 16:00 Temperature 98.4 F Pulse Rate 62 64 Respiratory Rate 18 Blood Pressure 124/55 L Pulse Oximetry 99 Oxygen Delivery Room Air 10/12/24 16:00 10/12/24 16:00 10/12/24 18:00 Temperature Pulse Rate 64 64 61 Respiratory Rate 18 Blood Pressure Pulse Oximetry 99 Oxygen Delivery Room Air 10/12/24 19:50 10/12/24 20:00 10/12/24 20:00 Temperature 98.2 F Pulse Rate 62 61 Respiratory Rate 18 Blood Pressure 119/52 L 133/59 L Pulse Oximetry 98 96 Oxygen Delivery Room Air 10/12/24 20:00 10/12/24 20:05 10/12/24 21:18 Temperature Pulse Rate 65 62 Respiratory Rate Blood Pressure 126/63 Pulse Oximetry 97 97 Oxygen Delivery Room Air 10/12/24 22:00 10/13/24 00:00 10/13/24 00:00 Temperature 97.6 F Pulse Rate 62 58 L Respiratory Rate 18 Blood Pressure 104/48 L Pulse Oximetry 96 Oxygen Delivery Room Air 10/13/24 00:00 10/13/24 02:00 10/13/24 04:00 Temperature Pulse Rate 54 L 109 H Respiratory Rate Blood Pressure Pulse Oximetry Oxygen Delivery Room Air 10/13/24 04:00 10/13/24 04:00 10/13/24 06:00 Temperature 97.6 F Pulse Rate 64 60 59 L Respiratory Rate 18 Blood Pressure 126/58 L Pulse Oximetry 98 Oxygen Delivery 10/13/24 08:00 10/13/24 08:27 10/13/24 08:31 Temperature 97.9 F Pulse Rate 68 62 Respiratory Rate 20 Blood Pressure 136/62 Pulse Oximetry 96 Oxygen Delivery Room Air Intake/Output Intake/Output: Intake & Output 10/10/24 10/11/24 10/12/24 10/13/24 23:59 23:59 23:59 23:59 Intake Total 1075 830 250 Output Total 450 400 Balance 1075 380 -150 Meds/Results Medications: Active Medications Generic Name Dose Route Start Last Admin Trade Name Freq PRN Reason Stop Dose Admin Acetaminophen 650 mg 10/11/24 17:48 Acetaminophen 325 Mg Tablet PO Q6H PRN Mild Pain (1-3) or Fever Amiodarone HCl 100 mg 10/13/24 09:00 10/13/24 08:31 Amiodarone Hcl 100 Mg Tablet PO 100 mg DAILY LIZA Administration Carbidopa/Levodopa 3 tablet 10/12/24 08:00 10/13/24 08:30 Carbidopa/Levodopa 25/100 Mg Tablet PO 3 tablet 0800,1200,1700 LIZA Administration Carbidopa/Levodopa 2 tablet 10/11/24 21:05 10/12/24 20:10 Carbidopa/Levodopa 25/100 Mg Cr Tablet PO 2 tablet QHS LIZA Administration Docusate Sodium 100 mg 10/11/24 21:02 Docusate Sodium 100 Mg Capsule PO HS PRN constipation Furosemide 20 mg 10/13/24 09:00 10/13/24 08:31 Furosemide 20 Mg Tablet PO 20 mg DAILY LIZA Administration Gabapentin 300 mg 10/12/24 08:00 10/13/24 08:30 Gabapentin 300 Mg Capsule PO 300 mg BID@0800,1600 LIZA Administration Iron Sucrose 400 mg/ Iron 275 mls @ 78.571 mls/hr 10/13/24 09:00 10/13/24 08:32 Sucrose 100 mg/ Sodium IVPB 10/13/24 12:29 78.57 mls/hr Chloride ONCE ONE Administration Levothyroxine Sodium 50 mcg 10/12/24 06:30 10/13/24 06:43 Levothyroxine Sodium 50 Mcg Tablet PO 50 mcg DAILY@0630 LIZA Administration Mirtazapine 15 mg 10/11/24 21:00 10/12/24 20:10 Mirtazapine 15 Mg Tablet PO 15 mg QHS LIZA Administration Ondansetron HCl 4 mg 10/11/24 16:16 Ondansetron Inj 4 Mg/2 Ml Vial IV PUSH Q4H PRN Nausea Pantoprazole Sodium 40 mg 10/12/24 21:00 10/13/24 08:30 Pantoprazole Sodium Iv 40 Mg Vial IV PUSH 40 mg Q12HR LIZA Administration Tramadol HCl 50 mg 10/11/24 21:02 Tramadol Hcl (*Crx) 50 Mg Tablet PO Q6H PRN moderate pain Radiology Results: ITS Impressions Chest X-Ray 10/11/24 14:01 IMPRESSION: 1. Opacities in the left lower lung zone which appears to increase in part to small left pleural effusion with associated atelectasis and/or pneumonia. 2. Cardiomegaly. Head CT 10/11/24 14:59 IMPRESSION: 1. Normal aging brain. No fracture or acute intracranial process. Carotid Doppler Study 10/12/24 10:09 IMPRESSION: 1. Less than 50% stenosis in the right internal carotid artery by sonographic criteria. 2. Less than 50% stenosis in the left internal carotid artery by sonographic criteria. Labs Labs: Laboratory Results - last 24 hr 10/12/24 10/13/24 04:07 09:10 WBC 9.5 RBC 3.63 L Hgb 7.8 L Hct 25.3 L MCV 69.7 L MCH 21.5 L MCHC 30.8 L RDW 18.0 H Plt Count 409 H MPV 8.9 Immature Gran % (Auto) 0.7 H Neut % (Auto) 78.6 H Lymph % (Auto) 10.1 L [place] % (Auto) 7.7 Eos % (Auto) 2.2 Baso % (Auto) 0.7 Lymph # (Auto) 0.96 [place] # (Auto) 0.7 H Eos # (Auto) 0.2 Baso # (Auto) 0.1 Abs Immat Gran (auto) 0.07 H Absolute Neuts (auto) 7.5 H Absolute Nucleated RBC 0.000 Band Neutrophils % Not Reportable Nucleated RBC % 0.0 Platelet Estimate Increased Hypochromasia 1+ Poikilocytosis 1+ Anisocytosis 1+ Target Cells 1+ Tear Drop Cells 1+ Ovalocytes 1+ Yohannes Cells 1+ Acanthocytes (Spur) 1+ Schistocytes Rare Iron 47 TIBC 283 % Saturation 17 L Ferritin 89.80 Quality VTE Prophylaxis VTE prophylaxis: mechanical ordered
[2024-10-13] MEDS: ACETAMINOPHEN 325 MG TABLET 650 MG PO (14:31)
--- NOTE | 2024-10-13 17:17 | P.CONGI_ITS ---
Assessment and Plan Assessment and plan (1) Acute on chronic anemia: Code(s): D64.9 - Anemia, unspecified Status: Acute Assessment and Plan: no overt gib but will monitor for any obvious bleeding could be multifactorial, also history of thalassemia no need of urgent scopes unless any changes keep hgb>7 (2) Hypertension: Qualifiers: Hypertension type: primary hypertension Qualified Code(s): I10 - Essential (primary) hypertension Code(s): I10 - Essential (primary) hypertension Status: Acute (3) Orthostatic hypotension due to Parkinson disease: Code(s): G90.3 - Multi-system degeneration of the autonomic nervous system Status: Acute Assessment and Plan: by air and hydronic balancing technician (4) Bradycardia: Code(s): R00.1 - Bradycardia, unspecified Status: Acute (5) Thalassemia: Qualifiers: Thalassemia type: unspecified type Qualified Code(s): D56.9 - Thalassemia, unspecified Code(s): D56.9 - Thalassemia, unspecified Status: Acute GI Consult Note Consult date/time: 10/13/24 17:17 Reason for consult: anemia HPI: Haven Mckoy is a 88 year old female with dementia, Parkinson's, hypertension, paroxysmal atrial fibrillation no longer on anticoagulation following a severe episode of epistaxis, pulmonary hypertension, right-sided heart failure, diastolic dysfunction, moderate to severe mitral valve regurgitation, thalassemia, melanoma, and trigeminal neurology admitted to hospital after a fall and suspected syncope, she is poor historian and does not remember events, history obtained also from records. It seems that she got up and then had syncopal episode. She has history ER visit with hypotension and severely bradycardic, even had discussion about possible pacemaker implantation however the patient declined at that time. ER Labs were significant for a hemoglobin of 7.4, MCV 69.4, sodium 134, carbon dioxide 33, BUN 20, creatinine 1.10, proBNP 1920, total protein 5.0, albumin 2.8. Head CT without acute findings. Chest x-ray showed opacities in left lower lung zone with small left pleural effusion with so she had atelectasis and/or pneumonia and cardiomegaly. Also evaluated by her air and hydronic balancing technician. Patient denies any blood in stool and she says that her bowel movements are normal, no blood. She can not tell me when she had scopes. Defensive Secondary Coach diagnosed patient with orthostatic hypotension. Review of Systems 2 Constitutional: Constitutional: Denies chills Eyes: Eyes: Reports no additional eye complaints ENT: Denies dysphagia Cardiovascular: Cardiovascular: Reports lightheadedness Respiratory: Respiratory: Denies cough Gastrointestinal: Gastrointestinal: Denies abdominal pain Genitourinary: Genitourinary: Denies dysuria Musculoskeletal: Musculoskeletal: Denies back pain Integumentary/Breasts: Skin/Breast: Denies rash Neurologic: Reports confusion PMF Past Medical History Medical History (Updated 10/14/24 @ 08:25 by Alen Ortega MD) Acute on chronic anemia Mitral valve regurgitation moderate to severe Orthostatic hypotension due to Parkinson disease Right-sided heart failure Depression Severe pulmonary hypertension Paroxysmal atrial fibrillation Diastolic dysfunction Colon cancer 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 Dementia progressive memory changes since early 2023 Hearing Loss 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 Thalassemia Hypertension Parkinson disease Surgical History Surgical History History of right hemicolectomy with end-to-end anastomosis for colon cancer History of arthroplasty of right knee History of cataract extraction with lens replacement History of appendectomy History of hysterectomy History of tonsillectomy and adenoidectomy Family History Family History Father Brain tumor Mother Breast cancer Grandparent Diabetes mellitus Son , at age 62 Alcoholism Dilated cardiomyopathy Social History Social History Social History: Healthcare power of patent prosecution attorney: Tara Lock, daughter. Code status: Full code. Smoking status: Never smoker Alcohol intake: never Substance use: never Do You Feel Safe in your Home?: Yes Lack of Transportation: No Lack of Food: Never True Current Housing: I Have Housing Concerned About Future Housing: No Difficulty Paying Gas/Electric Bills: No Difficulty Paying for Meds: No Currently Unemployed: No Education: Trade/Vocational Certificate Difficulty w/ Childcare or Family Care: No Living arrangements: assisted living Additional living arrangements comments: Assisted living at [facility]. She has a daughter and a son. Ambulates with [employer]. Spiritual care concerns: No Meds Home Medications and Allergies Home Medications ?Medication ?Instructions ?Recorded ?Confirmed ?Type carbidopa 25 mg-levodopa 100 mg 1 tablet PO TID 09/08/21 10/11/24 History tablet carbidopa ER 50 mg-levodopa 200 mg 2 tablet PO QHS 09/08/21 10/11/24 History tablet,extended release mirtazapine 15 mg tablet 15 mg PO QHS 06/21/22 10/11/24 History docusate sodium 100 mg capsule 100 mg PO HS PRN constipation 07/24/24 10/11/24 History (Colace) levothyroxine 25 mcg capsule 50 mcg PO DAILY 08/04/24 10/11/24 History Manual Wheelchair #1 ea 08/27/24 10/11/24 Rx acetaminophen 500 mg tablet 500 mg PO BID 09/06/24 10/11/24 History (Tylenol Extra Strength) furosemide 40 mg tablet 40 mg PO BID #60 tabs 09/25/24 10/11/24 Rx amiodarone 100 mg tablet 100 mg PO DAILY 10/11/24 10/11/24 History gabapentin 300 mg capsule 300 mg PO BID 10/11/24 10/11/24 History ondansetron 4 mg disintegrating 4 mg PO Q8H PRN nausea and vomiting 10/11/24 10/11/24 History tablet tramadol 50 mg tablet 50 mg PO Q6H PRN pain 10/11/24 10/11/24 History Allergies Allergy/AdvReac Type Severity Reaction Status Date / Time Sulfa (Sulfonamide Allergy Unknown Hives Verified 08/06/24 10:35 Antibiotics) epinephrine Allergy Unknown Verified 08/06/24 10:35 Vital Signs Vital Signs - 24 hr 10/12/24 18:00 10/12/24 19:50 10/12/24 20:00 Temperature 98.2 F Pulse Rate 61 62 61 Respiratory Rate 18 Blood Pressure 119/52 L 133/59 L Pulse Oximetry 98 96 Oxygen Delivery 10/12/24 20:00 10/12/24 20:00 10/12/24 20:05 Temperature Pulse Rate 65 62 Respiratory Rate Blood Pressure 126/63 Pulse Oximetry 97 Oxygen Delivery Room Air 10/12/24 21:18 10/12/24 22:00 10/13/24 00:00 Temperature 97.6 F Pulse Rate 62 58 L Respiratory Rate 18 Blood Pressure 104/48 L Pulse Oximetry 97 96 Oxygen Delivery Room Air 10/13/24 00:00 10/13/24 00:00 10/13/24 02:00 Temperature Pulse Rate 54 L 109 H Respiratory Rate Blood Pressure Pulse Oximetry Oxygen Delivery Room Air 10/13/24 04:00 10/13/24 04:00 10/13/24 04:00 Temperature 97.6 F Pulse Rate 64 60 Respiratory Rate 18 Blood Pressure 126/58 L Pulse Oximetry 98 Oxygen Delivery Room Air 10/13/24 06:00 10/13/24 08:00 10/13/24 08:00 Temperature 97.9 F Pulse Rate 59 L 68 67 Respiratory Rate 20 Blood Pressure 136/62 Pulse Oximetry 96 Oxygen Delivery 10/13/24 08:27 10/13/24 08:31 10/13/24 10:00 Temperature Pulse Rate 62 60 Respiratory Rate Blood Pressure Pulse Oximetry Oxygen Delivery Room Air 10/13/24 12:07 10/13/24 16:00 10/13/24 16:00 Temperature 98.1 F 97.6 F Pulse Rate 55 L 56 L 53 L Respiratory Rate 20 24 H Blood Pressure 116/55 L 107/48 L Pulse Oximetry 96 95 Oxygen Delivery Exam 2 Const: General: comfortable and no acute distress HENMT: Face/Nose/Sinus: Normal nares present Eyes: General: appearance normal, both eyes and all related structures Neck: Neck: supple Resp: Auscultation: clear to auscultation bilaterally Cardio: Rate: regular rate Rhythm: regular rhythm GI: Inspection: non-distended GI Palp: Yes Soft to palpation and No Tenderness to palpation present (GI) Auscultation: normal bowel sounds Skin: General skin exam: normal color Neuro: Speech: normal speech Motor exam (neuro): 5/5 motor strength present throughout Extrem: General: normal to inspection Psych: Mental Status: mental status grossly normal Results Labs 10/14/24 04:05 10/14/24 04:05 Labs: Short CBC 10/13/24 Range/Units 09:10 WBC 9.5 (4.5-10.0) K/mm3 Hgb 7.8 L (12.0-15.0) g/dL Hct 25.3 L (37.0-47.0) % Plt Count 409 H (150-375) k/mm3
[2024-10-13] MEDS: CARBIDOPA/LEVODOPA 25/100 MG CR TABLET 2 TABLET PO (22:33)
[2024-10-13] MEDS: MIRTAZAPINE 15 MG TABLET PO (22:35)
[2024-10-14] VITALS (16 sets, daily range): BP systolic 94–123; BP diastolic 42–68; PULSE 50–85; RESP 12–20; TEMP 36.4–37.1; O2SAT 95–100
[2024-10-14 04:45] LABS: Basophils Absolute Auto 0.1 K/mm3 (0.0-0.1); Basophils Percent Auto 0.9 % (0.2-1.2); Eosinophils Absolute Auto 0.3 K/mm3 (0-0.3); Eosinophils Percent Auto 3.7 % (0-4.4); Hematocrit 22.3 % (37.0-47.0); Immature Granulocyte Absolute 0.07 K/mm3 (0.00-0.031); Immature Granulocyte Percent A 0.8 % (0-0.5); Lymphocytes Percent Auto 10.1 % (18.3-44.2); Mean Corpuscular HGB Conc 30.9 g/dl (32-36); Mean Corpuscular Hemoglobin 21.1 pg (26-34); Mean Corpuscular Volume 68.2 fl (80-100); Mean Platelet Volume 9.4 fl (7.4-10.4); Monocytes Absolute Auto 0.7 K/mm3 (0.1-0.6); Monocytes Percent Auto 7.9 % (2.6-8.5); Neutrophils Absolute Auto 6.8 K/mm3 (1.3-6.7); Neutrophils Percent Auto 76.6 % (45.5-73.1); Platelet Count Result 387 k/mm3 (150-375); Red Blood Count 3.27 M/mm3 (4.2-5.4); Red Cell Distribution Width 17.7 % (11.5-14.5); White Blood Count 8.9 K/mm3 (4.5-10.0)
[2024-10-14 04:57] LABS: Albumin Level 2.7 g/dL (3.5-5.1); Alkaline Phosphatase 87 U/L (38-126); Anion Gap 3 mmol/L (4-12); Aspartate Amino Transferase 13 U/L (14-36); Bilirubin,Total 0.8 mg/dL (0.2-1.3); Blood Urea Nitrogen 18 mg/dL (7-17); Calcium 8.5 mg/dL (8.4-10.2); Carbon Dioxide 27 mmol/L (22-30); Chloride 105 mmol/L (98-107); Estimated CRCL calculation 34 ml/min; Estimated Glomerular Filt Rate > 60; Glucose 88 mg/dL (65-110); Magnesium 2.4 mg/dL (1.6-2.3); Potassium 3.9 mmol/L (3.4-5.0); Sodium 135 mmol/L (137-145)
[2024-10-14 05:15] LABS: Alanine Aminotransferase < 6 U/L (6-35); Hemoglobin 6.9 g/dL (12.0-15.0); Platelet Estimate Adequate (Adequate)
[2024-10-14 05:16] LABS: Anisocytosis 2+; Hypochromasia 2+; Ovalocytes 2+
[2024-10-14 05:17] LABS: Schistocytes 1+
[2024-10-14] MEDS: LEVOTHYROXINE SODIUM 50 MCG TABLET PO (05:49)
--- NOTE | 2024-10-14 06:48 | PC.NURSE ---
Pt states she does not know if she wants to receive blood or not. States she wants her daughter, Tara ([phone]) to make decision. Message left for Tara to call IMU.
[2024-10-14] MEDS: PANTOPRAZOLE SODIUM IV 40 MG VIAL IV PUSH ×2 (08:28→20:04)
[2024-10-14] MEDS: FUROSEMIDE 20 MG TABLET PO (08:28)
[2024-10-14] MEDS: GABAPENTIN 300 MG CAPSULE PO ×2 (08:28→16:08)
[2024-10-14] MEDS: AMIODARONE HCL 100 MG TABLET PO (08:29)
[2024-10-14] MEDS: CARBIDOPA/LEVODOPA 25/100 MG TABLET 3 TABLET PO ×3 (08:29→16:08)
[2024-10-14] MEDS: SODIUM CHLORIDE 0.9% IV 250 ML 30 ML IV CONT (11:00)
[2024-10-14] MEDS: IRON SUCROSE COMPLEX 400 MG, IRON SUCROSE COMPLEX 100 MG in SODIUM CHLORIDE 0.9% IV 250 ML 78.57 MG IVPB (11:49)
--- NOTE | 2024-10-14 15:25 | PM.IMPN ---
Progress Note: A&P Assessment and Plan (1) Syncope: Code(s): R55 - Syncope and collapse Status: Acute (2) Bradycardia: Code(s): R00.1 - Bradycardia, unspecified Status: Acute (3) Renal failure: Code(s): N19 - Unspecified kidney failure Status: Acute (4) Paroxysmal atrial fibrillation: Code(s): I48.0 - Paroxysmal atrial fibrillation Status: Acute (5) Mitral valve regurgitation: Qualifiers: Cardiac valve disease etiology: nonrheumatic Qualified Code(s): I34.0 - Nonrheumatic mitral (valve) insufficiency Code(s): I34.0 - Nonrheumatic mitral (valve) insufficiency Status: Acute (6) Right-sided heart failure: Qualifiers: Heart failure chronicity: acute on chronic Qualified Code(s): I50.813 - Acute on chronic right heart failure Code(s): I50.810 - Right heart failure, unspecified Status: Acute (7) Diastolic dysfunction: Code(s): I51.89 - Other ill-defined heart diseases Status: Acute (8) Pulmonary hypertension: Code(s): I27.20 - Pulmonary hypertension, unspecified Status: Acute (9) Thalassemia: Qualifiers: Thalassemia type: unspecified type Qualified Code(s): D56.9 - Thalassemia, unspecified Code(s): D56.9 - Thalassemia, unspecified Status: Acute (10) Parkinson disease: Qualifiers: Dyskinesia presence: unspecified whether dyskinesia Fluctuating manifestations: unspecified whether manifestations fluctuate Qualified Code(s): G20.A1 - Parkinson's disease without dyskinesia, without mention of fluctuations Code(s): G20 - Parkinson's disease Status: Acute Plan Syncope likely from overdiuresis and possible GI bleed patient was started recently on Lasix 40mg bid up from 20 for edema and patient is not longer edematous Hb 7.8, Iron panel and FOBT ordered Started on PPI and GI consulted cardiology eval noted Carotid doppler unremarkable Iron deficiency anemia Hb 6.9, transfuse 1 unit Isat 17 started on IV Iron 1000/1000mg, no further supplementation FOBT pending GI following monitor Parkinson's disease with oethostatic hypotension PAfib Contineu Amiodarone Not on AC, monitor Diastolic CHF Stopped Lasix 40mg bid continue 20mg daily per cards continue monitoring Depression continue home meds Right heart failure and pu, hypertension continue above diuresis as above Hypertension Titrate home meds with clinical course mitral valve regurgitation F/u with cardiology DVT prophylaxis on SCDs, No AC until GI bleed ruled out Subjective Date/time seen: 10/14/24 15:25 Interval history: Comfortable at bedside Anemia Hb 6.9, transfused 1 unit Review of Systems Review of Systems: 12 systems were reviewed and are negative except for as per HPI. Exam Narrative: General: Thin, nontoxic-appearing elderly female sitting up in bed eating a sandwich in no distress. She is hard of hearing. Weight: 53 kg. BMI: 19.4. HEENT: Wearing corrective lenses. PERRL, EOMI. Conjunctiva mildly injected. Sclera anicteric. Moist mucous membranes. Neck: Supple. No JVD. Respiratory: Lungs are clear to auscultation bilaterally. Cardiovascular: Regular rate and rhythm. Systolic murmur at the lower sternal border and apex. Gastrointestinal: Abdomen is soft, nontender, and nondistended with positive bowel sounds. Skin: Warm and dry. No rashes. Skin tear on the left forearm. Extremities: No cyanosis, clubbing, or significant edema. Right radial pulse is and pedal pulses diminished. Hands and feet are warm and perfused. Neurological: Alert. Cranial nerves 2-12 are grossly intact. No gross focal deficits to casual conversation. Psychiatric: Pleasant and cooperative with appropriate mood and affect. Objective Data Vital Signs Vital Signs: Vital Signs - 24 hr 10/13/24 16:00 10/13/24 16:00 10/13/24 17:27 Temperature 97.6 F Pulse Rate 56 L 53 L Respiratory Rate 24 H Blood Pressure 107/48 L 112/56 L Pulse Oximetry 95 Oxygen Delivery Fraction of Inspired Oxygen 10/13/24 17:27 10/13/24 18:45 10/13/24 20:00 Temperature 97.4 F L Pulse Rate 54 L 53 L Respiratory Rate 16 Blood Pressure 85/66 L 115/56 L Pulse Oximetry 98 Oxygen Delivery Fraction of Inspired Oxygen 10/13/24 20:00 10/13/24 21:35 10/13/24 23:00 Temperature 97.5 F L Pulse Rate 53 L 48 L 52 L Respiratory Rate 18 Blood Pressure 118/49 L Pulse Oximetry 94 100 Oxygen Delivery Room Air Fraction of Inspired Oxygen 21 10/14/24 00:00 10/14/24 04:00 10/14/24 07:44 Temperature 98.8 F Pulse Rate 50 L 55 L 64 Respiratory Rate 20 Blood Pressure 121/64 Pulse Oximetry 98 Oxygen Delivery Fraction of Inspired Oxygen 10/14/24 08:00 10/14/24 08:29 10/14/24 09:24 Temperature 98.2 F Pulse Rate 64 61 85 Respiratory Rate 16 Blood Pressure 105/50 L Pulse Oximetry 99 Oxygen Delivery Fraction of Inspired Oxygen 10/14/24 09:46 10/14/24 10:46 10/14/24 11:43 Temperature 98.4 F 98.6 F 97.9 F Pulse Rate 62 59 L 63 Respiratory Rate 12 18 16 Blood Pressure 110/43 L 112/53 L 123/51 L Pulse Oximetry 97 98 98 Oxygen Delivery Fraction of Inspired Oxygen 10/14/24 11:47 Temperature 97.9 F Pulse Rate 63 Respiratory Rate 16 Blood Pressure 123/51 L Pulse Oximetry 98 Oxygen Delivery Fraction of Inspired Oxygen Intake/Output Intake/Output: Intake & Output 10/11/24 10/12/24 10/13/24 10/14/24 23:59 23:59 23:59 23:59 Intake Total 3890 616 4599 720 Output Total 450 801 0 Balance 1075 380 379 720 Meds/Results Medications: Active Medications Generic Name Dose Route Start Last Admin Trade Name Freq PRN Reason Stop Dose Admin Acetaminophen 650 mg 10/11/24 17:48 10/13/24 14:31 Acetaminophen 325 Mg Tablet PO 650 mg Q6H PRN Administration Mild Pain (1-3) or Fever Amiodarone HCl 100 mg 10/13/24 09:00 10/14/24 08:29 Amiodarone Hcl 100 Mg Tablet PO 100 mg DAILY LIZA Administration Carbidopa/Levodopa 3 tablet 10/12/24 08:00 10/14/24 11:01 Carbidopa/Levodopa 25/100 Mg Tablet PO 3 tablet 0800,1200,1700 LIZA Administration Carbidopa/Levodopa 2 tablet 10/11/24 21:05 10/13/24 22:33 Carbidopa/Levodopa 25/100 Mg Cr Tablet PO 2 tablet QHS LIZA Administration Docusate Sodium 100 mg 10/11/24 21:02 Docusate Sodium 100 Mg Capsule PO HS PRN constipation Furosemide 20 mg 10/13/24 09:00 10/14/24 08:28 Furosemide 20 Mg Tablet PO 20 mg DAILY LIZA Administration Gabapentin 300 mg 10/12/24 08:00 10/14/24 08:28 Gabapentin 300 Mg Capsule PO 300 mg BID@0800,1600 LIZA Administration Levothyroxine Sodium 50 mcg 10/12/24 06:30 10/14/24 05:49 Levothyroxine Sodium 50 Mcg Tablet PO 50 mcg DAILY@0630 LIZA Administration Mirtazapine 15 mg 10/11/24 21:00 10/13/24 22:35 Mirtazapine 15 Mg Tablet PO 15 mg QHS LIZA Administration Ondansetron HCl 4 mg 10/11/24 16:16 Ondansetron Inj 4 Mg/2 Ml Vial IV PUSH Q4H PRN Nausea Pantoprazole Sodium 40 mg 10/12/24 21:00 10/14/24 08:28 Pantoprazole Sodium Iv 40 Mg Vial IV PUSH 40 mg Q12HR LIZA Administration Tramadol HCl 50 mg 10/11/24 21:02 Tramadol Hcl (*Crx) 50 Mg Tablet PO Q6H PRN moderate pain Radiology Results: ITS Impressions Chest X-Ray 10/11/24 14:01 IMPRESSION: 1. Opacities in the left lower lung zone which appears to increase in part to small left pleural effusion with associated atelectasis and/or pneumonia. 2. Cardiomegaly. Head CT 10/11/24 14:59 IMPRESSION: 1. Normal aging brain. No fracture or acute intracranial process. Carotid Doppler Study 10/12/24 10:09 IMPRESSION: 1. Less than 50% stenosis in the right internal carotid artery by sonographic criteria. 2. Less than 50% stenosis in the left internal carotid artery by sonographic criteria. Labs Labs: Laboratory Results - last 24 hr 10/14/24 10/14/24 04:05 06:23 WBC 8.9 RBC 3.27 L Hgb 6.9 L* Hct 22.3 L MCV 68.2 L MCH 21.1 L MCHC 30.9 L RDW 17.7 H Plt Count 387 H MPV 9.4 Immature Gran % (Auto) 0.8 H Neut % (Auto) 76.6 H Lymph % (Auto) 10.1 L [place] % (Auto) 7.9 Eos % (Auto) 3.7 Baso % (Auto) 0.9 Lymph # (Auto) 0.90 [place] # (Auto) 0.7 H Eos # (Auto) 0.3 Baso # (Auto) 0.1 Abs Immat Gran (auto) 0.07 H Absolute Neuts (auto) 6.8 H Absolute Nucleated RBC 0.000 Band Neutrophils % Not Reportable Nucleated RBC % 0.0 Platelet Estimate Adequate Hypochromasia 2+ Anisocytosis 2+ Ovalocytes 2+ Schistocytes 1+ Sodium 135 L Potassium 3.9 Chloride 105 Carbon Dioxide 27 Anion Gap 3 L BUN 18 H Creatinine 0.82 Estim Creat Clear Calc 34 Estimated GFR > 60 Glucose 88 Calcium 8.5 Magnesium 2.4 H Total Bilirubin 0.8 AST 13 L ALT < 6 L Alkaline Phosphatase 87 Total Protein 5.0 L Albumin 2.7 L Blood Type O Positive Antibody Screen Negative Crossmatch See Detail Quality VTE Prophylaxis VTE prophylaxis: mechanical ordered
--- NOTE | 2024-10-14 15:53 | WPDGIPROGNO ---
Progress Note: A&P Assessment and Plan (1) Acute on chronic anemia: Code(s): D64.9 - Anemia, unspecified Status: Acute Assessment and Plan: no overt gib, also she has known thalassemia no need of urgent scopes given advanced age and comorbidities, high risk for anesthesia, of course if obvious gib then will reassess but recommend conservative treatment for now will follow as needed (2) Thalassemia: Qualifiers: Thalassemia type: unspecified type Qualified Code(s): D56.9 - Thalassemia, unspecified Code(s): D56.9 - Thalassemia, unspecified Status: Acute (3) Syncope: Code(s): R55 - Syncope and collapse Status: Acute Assessment and Plan: by primary and cardiology (4) Orthostatic hypotension: Code(s): I95.1 - Orthostatic hypotension Status: Acute Subjective Date/time seen: 10/14/24 15:53 Interval history: she is up in recliner and comfortable no blood in stools tolerating diet Review of Systems Review of Systems: All systems reviewed & are unremarkable except as noted in HPI and below Exam Const: General: comfortable and no acute distress HENMT: Face/Nose/Sinus: Normal nares present Eyes: General: appearance normal, both eyes and all related structures Neck: Neck: supple Resp: Auscultation: clear to auscultation bilaterally Cardio: Rate: regular rate Rhythm: regular rhythm GI: Inspection: non-distended GI Palp: Yes Soft to palpation and No Tenderness to palpation present (GI) Auscultation: normal bowel sounds Skin: General skin exam: normal color Neuro: Speech: normal speech Motor exam (neuro): 5/5 motor strength present throughout Extrem: General: normal to inspection Psych: Mental Status: mental status grossly normal Objective Data Vital Signs Vital Signs: Vital Signs - 24 hr 10/13/24 16:00 10/13/24 16:00 10/13/24 17:27 Temperature 97.6 F Pulse Rate 56 L 53 L Respiratory Rate 24 H Blood Pressure 107/48 L 112/56 L Pulse Oximetry 95 Oxygen Delivery Fraction of Inspired Oxygen 10/13/24 17:27 10/13/24 18:45 10/13/24 20:00 Temperature 97.4 F L Pulse Rate 54 L 53 L Respiratory Rate 16 Blood Pressure 85/66 L 115/56 L Pulse Oximetry 98 Oxygen Delivery Fraction of Inspired Oxygen 10/13/24 20:00 10/13/24 21:35 10/13/24 23:00 Temperature 97.5 F L Pulse Rate 53 L 48 L 52 L Respiratory Rate 18 Blood Pressure 118/49 L Pulse Oximetry 94 100 Oxygen Delivery Room Air Fraction of Inspired Oxygen 21 10/14/24 00:00 10/14/24 04:00 10/14/24 07:44 Temperature 98.8 F Pulse Rate 50 L 55 L 64 Respiratory Rate 20 Blood Pressure 121/64 Pulse Oximetry 98 Oxygen Delivery Fraction of Inspired Oxygen 10/14/24 08:00 10/14/24 08:29 10/14/24 09:24 Temperature 98.2 F Pulse Rate 64 61 85 Respiratory Rate 16 Blood Pressure 105/50 L Pulse Oximetry 99 Oxygen Delivery Fraction of Inspired Oxygen 10/14/24 09:46 10/14/24 10:46 10/14/24 11:43 Temperature 98.4 F 98.6 F 97.9 F Pulse Rate 62 59 L 63 Respiratory Rate 12 18 16 Blood Pressure 110/43 L 112/53 L 123/51 L Pulse Oximetry 97 98 98 Oxygen Delivery Fraction of Inspired Oxygen 10/14/24 11:47 Temperature 97.9 F Pulse Rate 63 Respiratory Rate 16 Blood Pressure 123/51 L Pulse Oximetry 98 Oxygen Delivery Fraction of Inspired Oxygen Intake/Output Intake/Output: Intake & Output 10/11/24 10/12/24 10/13/24 10/14/24 23:59 23:59 23:59 23:59 Intake Total 3919 253 4720 720 Output Total 450 801 0 Balance 1075 380 379 720 Meds/Results Medications: Active Medications Generic Name Dose Route Start Last Admin Trade Name Thorq PRN Reason Stop Dose Admin Acetaminophen 650 mg 10/11/24 17:48 10/13/24 14:31 Acetaminophen 325 Mg Tablet PO 650 mg Q6H PRN Administration Mild Pain (1-3) or Fever Amiodarone HCl 100 mg 10/13/24 09:00 10/14/24 08:29 Amiodarone Hcl 100 Mg Tablet PO 100 mg DAILY LIZA Administration Carbidopa/Levodopa 3 tablet 10/12/24 08:00 10/14/24 11:01 Carbidopa/Levodopa 25/100 Mg Tablet PO 3 tablet 0800,1200,1700 LIZA Administration Carbidopa/Levodopa 2 tablet 10/11/24 21:05 10/13/24 22:33 Carbidopa/Levodopa 25/100 Mg Cr Tablet PO 2 tablet QHS LIZA Administration Docusate Sodium 100 mg 10/11/24 21:02 Docusate Sodium 100 Mg Capsule PO HS PRN constipation Furosemide 20 mg 10/13/24 09:00 10/14/24 08:28 Furosemide 20 Mg Tablet PO 20 mg DAILY LIZA Administration Gabapentin 300 mg 10/12/24 08:00 10/14/24 08:28 Gabapentin 300 Mg Capsule PO 300 mg BID@0800,1600 LIZA Administration Levothyroxine Sodium 50 mcg 10/12/24 06:30 10/14/24 05:49 Levothyroxine Sodium 50 Mcg Tablet PO 50 mcg DAILY@0630 LIZA Administration Mirtazapine 15 mg 10/11/24 21:00 10/13/24 22:35 Mirtazapine 15 Mg Tablet PO 15 mg QHS LIZA Administration Ondansetron HCl 4 mg 10/11/24 16:16 Ondansetron Inj 4 Mg/2 Ml Vial IV PUSH Q4H PRN Nausea Pantoprazole Sodium 40 mg 10/12/24 21:00 10/14/24 08:28 Pantoprazole Sodium Iv 40 Mg Vial IV PUSH 40 mg Q12HR LIZA Administration Tramadol HCl 50 mg 10/11/24 21:02 Tramadol Hcl (*Crx) 50 Mg Tablet PO Q6H PRN moderate pain Radiology Results: ITS Impressions Chest X-Ray 10/11/24 14:01 IMPRESSION: 1. Opacities in the left lower lung zone which appears to increase in part to small left pleural effusion with associated atelectasis and/or pneumonia. 2. Cardiomegaly. Head CT 10/11/24 14:59 IMPRESSION: 1. Normal aging brain. No fracture or acute intracranial process. Carotid Doppler Study 10/12/24 10:09 IMPRESSION: 1. Less than 50% stenosis in the right internal carotid artery by sonographic criteria. 2. Less than 50% stenosis in the left internal carotid artery by sonographic criteria. Labs Labs: Laboratory Results - last 24 hr 10/14/24 10/14/24 04:05 06:23 WBC 8.9 RBC 3.27 L Hgb 6.9 L* Hct 22.3 L MCV 68.2 L MCH 21.1 L MCHC 30.9 L RDW 17.7 H Plt Count 387 H MPV 9.4 Immature Gran % (Auto) 0.8 H Neut % (Auto) 76.6 H Lymph % (Auto) 10.1 L [place] % (Auto) 7.9 Eos % (Auto) 3.7 Baso % (Auto) 0.9 Lymph # (Auto) 0.90 [place] # (Auto) 0.7 H Eos # (Auto) 0.3 Baso # (Auto) 0.1 Abs Immat Gran (auto) 0.07 H Absolute Neuts (auto) 6.8 H Absolute Nucleated RBC 0.000 Band Neutrophils % Not Reportable Nucleated RBC % 0.0 Platelet Estimate Adequate Hypochromasia 2+ Anisocytosis 2+ Ovalocytes 2+ Schistocytes 1+ Sodium 135 L Potassium 3.9 Chloride 105 Carbon Dioxide 27 Anion Gap 3 L BUN 18 H Creatinine 0.82 Estim Creat Clear Calc 34 Estimated GFR > 60 Glucose 88 Calcium 8.5 Magnesium 2.4 H Total Bilirubin 0.8 AST 13 L ALT < 6 L Alkaline Phosphatase 87 Total Protein 5.0 L Albumin 2.7 L Blood Type O Positive Antibody Screen Negative Crossmatch See Detail
[2024-10-14 18:51] LABS: Add Urine Microscopic? YES; Appearance Urine Clear (Clear); Bacteria Urine None Seen /hpf; Bilirubin Urine Negative (Negative); Blood Urine Negative (Negative); Color Urine Dark Yellow (Yellow); Glucose Urine UA Negative (Negative); Ketones Urine Trace mg/dL (Negative); Leukocyte Esterase Ur 1+ LEU/UL (Negative); Nitrate Urine Negative (Negative); Non Pathogenic Casts 0-2; Protein Urine Negative (Negative); RBC Urine 0-2 /hpf (0-2); Specific Grav Ur 1.024 (1.001-1.035); Squamous Epithelial Cell Urine None Seen /hpf (Few)
[2024-10-14] MEDS: traMADol HCL (*CRX) 50 MG TABLET PO (20:03)
[2024-10-14] MEDS: MIRTAZAPINE 15 MG TABLET PO (20:04)
[2024-10-14] MEDS: CARBIDOPA/LEVODOPA 25/100 MG CR TABLET 2 TABLET PO (20:04)
--- NOTE | 2024-10-14 22:39 | PC.NURSE ---
This patient, Haevn Tesfaye Marianojoyamyjhony, was received from [ [id number]] on 10/14/24 at 223. Patient/family oriented to unit policies and routines
[2024-10-15] VITALS (12 sets, daily range): BP systolic 86–114; BP diastolic 44–56; PULSE 53–63; RESP 16–18; TEMP 36.1–36.6; O2SAT 95–100
[2024-10-15] MEDS: LEVOTHYROXINE SODIUM 50 MCG TABLET PO (05:40)
[2024-10-15 07:04] LABS: Basophils Absolute Auto 0.1 K/mm3 (0.0-0.1); Basophils Percent Auto 0.8 % (0.2-1.2); Eosinophils Absolute Auto 0.4 K/mm3 (0-0.3); Eosinophils Percent Auto 4.7 % (0-4.4); Hematocrit 25.4 % (37.0-47.0); Hemoglobin 7.8 g/dL (12.0-15.0); Immature Granulocyte Absolute 0.05 K/mm3 (0.00-0.031); Immature Granulocyte Percent A 0.6 % (0-0.5); Lymphocytes Absolute Auto 1.27 K/mm3 (0.9-3.2); Lymphocytes Percent Auto 14.5 % (18.3-44.2); Mean Corpuscular HGB Conc 30.7 g/dl (32-36); Mean Corpuscular Hemoglobin 21.7 pg (26-34); Mean Corpuscular Volume 70.6 fl (80-100); Mean Platelet Volume 9.9 fl (7.4-10.4); Monocytes Percent Auto 11.5 % (2.6-8.5); Neutrophils Percent Auto 67.9 % (45.5-73.1); Platelet Count Result 384 k/mm3 (150-375); Red Cell Distribution Width 17.8 % (11.5-14.5); White Blood Count 8.8 K/mm3 (4.5-10.0)
[2024-10-15 07:16] LABS: Albumin Level 2.7 g/dL (3.5-5.1); Alkaline Phosphatase 91 U/L (38-126); Anion Gap 3 mmol/L (4-12); Aspartate Amino Transferase 15 U/L (14-36); Bilirubin,Total 1.2 mg/dL (0.2-1.3); Blood Urea Nitrogen 18 mg/dL (7-17); Calcium 8.5 mg/dL (8.4-10.2); Carbon Dioxide 28 mmol/L (22-30); Chloride 104 mmol/L (98-107); Estimated CRCL calculation 34 ml/min; Estimated Glomerular Filt Rate > 60; Glucose 72 mg/dL (65-110); Magnesium 2.3 mg/dL (1.6-2.3); Potassium 4.3 mmol/L (3.4-5.0); Sodium 135 mmol/L (137-145)
[2024-10-15 07:36] LABS: Alanine Aminotransferase < 6 U/L (6-35)
[2024-10-15 08:15] LABS: Anisocytosis 1+; Hypochromasia 2+; Ovalocytes 1+; Platelet Estimate Adequate (Adequate); Schistocytes None Seen; Target Cells 1+
[2024-10-15] MEDS: FUROSEMIDE 20 MG TABLET PO (08:52)
[2024-10-15] MEDS: PANTOPRAZOLE SODIUM IV 40 MG VIAL IV PUSH ×2 (08:52→20:13)
[2024-10-15] MEDS: GABAPENTIN 300 MG CAPSULE PO ×2 (08:52→16:43)
[2024-10-15] MEDS: CARBIDOPA/LEVODOPA 25/100 MG TABLET 3 TABLET PO ×3 (08:56→16:43)
[2024-10-15] MEDS: AMIODARONE HCL 100 MG TABLET PO (12:21)
--- NOTE | 2024-10-15 17:35 | P.PNIM_ITS ---
Progress Note: A&P Assessment and Plan (1) Syncope: Code(s): R55 - Syncope and collapse Status: Acute (2) Bradycardia: Code(s): R00.1 - Bradycardia, unspecified Status: Acute (3) Renal failure: Code(s): N19 - Unspecified kidney failure Status: Acute (4) Paroxysmal atrial fibrillation: Code(s): I48.0 - Paroxysmal atrial fibrillation Status: Acute (5) Mitral valve regurgitation: Qualifiers: Cardiac valve disease etiology: nonrheumatic Qualified Code(s): I34.0 - Nonrheumatic mitral (valve) insufficiency Code(s): I34.0 - Nonrheumatic mitral (valve) insufficiency Status: Acute (6) Right-sided heart failure: Qualifiers: Heart failure chronicity: acute on chronic Qualified Code(s): I50.813 - Acute on chronic right heart failure Code(s): I50.810 - Right heart failure, unspecified Status: Acute (7) Diastolic dysfunction: Code(s): I51.89 - Other ill-defined heart diseases Status: Acute (8) Pulmonary hypertension: Code(s): I27.20 - Pulmonary hypertension, unspecified Status: Acute (9) Thalassemia: Qualifiers: Thalassemia type: unspecified type Qualified Code(s): D56.9 - Thalassemia, unspecified Code(s): D56.9 - Thalassemia, unspecified Status: Acute (10) Parkinson disease: Qualifiers: Dyskinesia presence: unspecified whether dyskinesia Fluctuating manifestations: unspecified whether manifestations fluctuate Qualified Code(s): G20.A1 - Parkinson's disease without dyskinesia, without mention of fluctuations Code(s): G20 - Parkinson's disease Status: Acute Plan 88 y/o presented with syncope most likely 2/2 over diuresed with laxis which is now on hold and there was also concern due to anemia however seen by GI does not suspect any GI issue since there is no sign of GI bleed. patient symptoms have improved and able to work with PT, patient clinical symptoms are improving patient will benefit going to SNF for rehab, will monitor. Syncope likely from overdiuresis and possible GI bleed patient was started recently on Lasix 40mg bid up from 20 for edema and patient is not longer edematous Hb 7.8, Iron panel and FOBT ordered Started on PPI and GI consulted cardiology eval noted Carotid doppler unremarkable Iron deficiency anemia Hb 6.9, transfuse 1 unit Isat 17 started on IV Iron 1000/1000mg, no further supplementation FOBT pending GI following monitor Parkinson's disease with oethostatic hypotension PAfib Contineu Amiodarone Not on AC, monitor Diastolic CHF Stopped Lasix 40mg bid continue 20mg daily per cards continue monitoring Depression continue home meds Right heart failure and pu, hypertension continue above diuresis as above Hypertension Titrate home meds with clinical course mitral valve regurgitation F/u with cardiology DVT prophylaxis on SCDs, No AC until GI bleed ruled out Subjective Date/time seen: 10/15/24 17:35 Interval history: 88 y/o presented with syncope most likely 2/2 over diuresed with laxis which is now on hold and there was also concern due to anemia however seen by GI does not suspect any GI issue since there is no sign of GI bleed. patient symptoms have improved and able to work with PT, patient clinical symptoms are improving patient will benefit going to SNF for rehab, will monitor. Review of Systems Review of Systems: 12 systems were reviewed and are negativ e except for as per HPI. Exam Narrative: Elderly frail Patient is comfortable, NAD HEENT: eyes are clear and none icteric LUNGS:CTA HEART: RR S1S2 ABD: BS+, Soft and nontender Lower extremities: no edema SKIN: nonjaundiced Neuro: grossly intact. Objective Data Vital Signs Vital Signs: Vital Signs - 24 hr 10/14/24 20:00 10/14/24 20:16 10/14/24 20:34 Temperature 36.7 C Pulse Rate 58 L 60 Respiratory Rate 17 14 Blood Pressure 106/49 L Pulse Oximetry 97 97 Oxygen Delivery Room Air Room Air Fraction of Inspired Oxygen 21 10/14/24 22:40 10/15/24 00:12 10/15/24 04:07 Temperature 36.4 C L Pulse Rate 61 60 57 L Respiratory Rate 16 Blood Pressure 119/56 L Pulse Oximetry 95 Oxygen Delivery Fraction of Inspired Oxygen 10/15/24 06:00 10/15/24 08:00 10/15/24 12:21 Temperature 36.6 C Pulse Rate 62 63 Respiratory Rate 16 Blood Pressure 97/45 L Pulse Oximetry 95 96 Oxygen Delivery Room Air Fraction of Inspired Oxygen 10/15/24 13:00 10/15/24 13:43 10/15/24 13:43 Temperature Pulse Rate 57 L 57 L Respiratory Rate Blood Pressure 107/52 L 99/44 L 86/53 L Pulse Oximetry Oxygen Delivery Fraction of Inspired Oxygen 10/15/24 13:57 Temperature 36.1 C L Pulse Rate 57 L Respiratory Rate 18 Blood Pressure 107/52 L Pulse Oximetry 96 Oxygen Delivery Fraction of Inspired Oxygen Intake/Output Intake/Output: Intake & Output 10/12/24 10/13/24 10/14/24 10/15/24 23:59 23:59 23:59 23:59 Intake Total 830 1180 2120 600 Output Total 224 682 5868 0 Balance 380 379 920 600 Meds/Results Medications: Active Medications Generic Name Dose Route Start Last Admin Trade Name Freq PRN Reason Stop Dose Admin Acetaminophen 650 mg 10/11/24 17:48 10/13/24 14:31 Acetaminophen 325 Mg Tablet PO 650 mg Q6H PRN Administration Mild Pain (1-3) or Fever Amiodarone HCl 100 mg 10/13/24 09:00 10/15/24 12:21 Amiodarone Hcl 100 Mg Tablet PO 100 mg DAILY LIZA Administration Carbidopa/Levodopa 3 tablet 10/12/24 08:00 10/15/24 16:43 Carbidopa/Levodopa 25/100 Mg Tablet PO 3 tablet 0800,1200,1700 LIZA Administration Carbidopa/Levodopa 2 tablet 10/11/24 21:05 10/14/24 20:04 Carbidopa/Levodopa 25/100 Mg Cr Tablet PO 2 tablet QHS LIZA Administration Docusate Sodium 100 mg 10/11/24 21:02 Docusate Sodium 100 Mg Capsule PO HS PRN constipation Furosemide 20 mg 10/13/24 09:00 10/15/24 08:52 Furosemide 20 Mg Tablet PO 20 mg DAILY LIZA Administration Gabapentin 300 mg 10/12/24 08:00 10/15/24 16:43 Gabapentin 300 Mg Capsule PO 300 mg BID@0800,1600 LIZA Administration Levothyroxine Sodium 50 mcg 10/12/24 06:30 10/15/24 05:40 Levothyroxine Sodium 50 Mcg Tablet PO 50 mcg DAILY@0630 LIZA Administration Mirtazapine 15 mg 10/11/24 21:00 10/14/24 20:04 Mirtazapine 15 Mg Tablet PO 15 mg QHS LIZA Administration Ondansetron HCl 4 mg 10/11/24 16:16 Ondansetron Inj 4 Mg/2 Ml Vial IV PUSH Q4H PRN Nausea Pantoprazole Sodium 40 mg 10/12/24 21:00 10/15/24 08:52 Pantoprazole Sodium Iv 40 Mg Vial IV PUSH 40 mg Q12HR LIZA Administration Tramadol HCl 50 mg 10/11/24 21:02 10/14/24 20:03 Tramadol Hcl (*Crx) 50 Mg Tablet PO 50 mg Q6H PRN Administration moderate pain Radiology Results: ITS Impressions Chest X-Ray 10/11/24 14:01 IMPRESSION: 1. Opacities in the left lower lung zone which appears to increase in part to small left pleural effusion with associated atelectasis and/or pneumonia. 2. Cardiomegaly. Head CT 10/11/24 14:59 IMPRESSION: 1. Normal aging brain. No fracture or acute intracranial process. Carotid Doppler Study 10/12/24 10:09 IMPRESSION: 1. Less than 50% stenosis in the right internal carotid artery by sonographic criteria. 2. Less than 50% stenosis in the left internal carotid artery by sonographic criteria. Labs Labs: Laboratory Results - last 24 hr 10/14/24 10/15/24 18:24 05:31 WBC 8.8 RBC 3.60 L Hgb 7.8 L Hct 25.4 L MCV 70.6 L MCH 21.7 L MCHC 30.7 L RDW 17.8 H Plt Count 384 H MPV 9.9 Immature Gran % (Auto) 0.6 H Neut % (Auto) 67.9 Lymph % (Auto) 14.5 L [place] % (Auto) 11.5 H Eos % (Auto) 4.7 H Baso % (Auto) 0.8 Lymph # (Auto) 1.27 [place] # (Auto) 1.0 H Eos # (Auto) 0.4 H Baso # (Auto) 0.1 Abs Immat Gran (auto) 0.05 H Absolute Neuts (auto) 6.0 Absolute Nucleated RBC 0.000 Band Neutrophils % Not Reportable Nucleated RBC % 0.0 Platelet Estimate Adequate Hypochromasia 2+ Anisocytosis 1+ Target Cells 1+ Ovalocytes 1+ Schistocytes None seen Sodium 135 L Potassium 4.3 Chloride 104 Carbon Dioxide 28 Anion Gap 3 L BUN 18 H Creatinine 0.85 Estim Creat Clear Calc 34 Estimated GFR > 60 Glucose 72 Calcium 8.5 Magnesium 2.3 Total Bilirubin 1.2 AST 15 ALT < 6 L Alkaline Phosphatase 91 Total Protein 5.0 L Albumin 2.7 L Urine Color Dark yellow Urine Appearance Clear Urine pH 5.0 Ur Specific [place] 1.024 Urine Protein Negative Urine Glucose (UA) Negative Urine Ketones Trace H Ur Blood (Man) Negative Urine Nitrate Negative Urine Bilirubin Negative Urine Urobilinogen 1.0 Ur Leukocyte Esterase 1+ H Urine RBC 0-2 Urine WBC 6-10 H Ur Squamous Epith Cells None seen Urine Bacteria None seen Urine Casts 0-2 Quality VTE Prophylaxis VTE prophylaxis: mechanical ordered
[2024-10-15] MEDS: CARBIDOPA/LEVODOPA 25/100 MG CR TABLET 2 TABLET PO (20:13)
[2024-10-15] MEDS: MIRTAZAPINE 15 MG TABLET PO (20:13)
[2024-10-16] VITALS (9 sets, daily range): BP systolic 119–136; BP diastolic 56–75; PULSE 58–72; RESP 16; TEMP 36.4–36.6; O2SAT 96–97
[2024-10-16 05:46] LABS: Hematocrit 26.7 % (37.0-47.0); Hemoglobin 8.2 g/dL (12.0-15.0); Mean Corpuscular HGB Conc 30.7 g/dl (32-36); Mean Corpuscular Hemoglobin 21.6 pg (26-34); Mean Corpuscular Volume 70.4 fl (80-100); Mean Platelet Volume 9.6 fl (7.4-10.4); Platelet Count Result 389 k/mm3 (150-375); Red Blood Count 3.79 M/mm3 (4.2-5.4); Red Cell Distribution Width 17.8 % (11.5-14.5); White Blood Count 8.7 K/mm3 (4.5-10.0)
[2024-10-16] MEDS: LEVOTHYROXINE SODIUM 50 MCG TABLET PO (05:54)
[2024-10-16 06:06] LABS: Anion Gap 2 mmol/L (4-12); Blood Urea Nitrogen 20 mg/dL (7-17); Calcium 8.8 mg/dL (8.4-10.2); Carbon Dioxide 29 mmol/L (22-30); Chloride 103 mmol/L (98-107); Estimated CRCL calculation 37 ml/min; Estimated Glomerular Filt Rate > 60; Glucose 87 mg/dL (65-110); Magnesium 2.2 mg/dL (1.6-2.3); Potassium 4.5 mmol/L (3.4-5.0); Sodium 134 mmol/L (137-145)
[2024-10-16] MEDS: CARBIDOPA/LEVODOPA 25/100 MG TABLET 3 TABLET PO ×3 (09:22→17:43)
[2024-10-16] MEDS: PANTOPRAZOLE SODIUM IV 40 MG VIAL IV PUSH (09:22)
[2024-10-16] MEDS: GABAPENTIN 300 MG CAPSULE PO ×2 (09:22→17:43)
[2024-10-16] MEDS: FUROSEMIDE 20 MG TABLET PO (09:22)
[2024-10-16] MEDS: AMIODARONE HCL 100 MG TABLET PO (09:23)
--- NOTE | 2024-10-16 15:33 | P.PNIM_ITS ---
Progress Note: A&P Assessment and Plan (1) Syncope: Code(s): R55 - Syncope and collapse Status: Acute (2) Bradycardia: Code(s): R00.1 - Bradycardia, unspecified Status: Acute (3) Renal failure: Code(s): N19 - Unspecified kidney failure Status: Acute (4) Paroxysmal atrial fibrillation: Code(s): I48.0 - Paroxysmal atrial fibrillation Status: Acute (5) Mitral valve regurgitation: Qualifiers: Cardiac valve disease etiology: nonrheumatic Qualified Code(s): I34.0 - Nonrheumatic mitral (valve) insufficiency Code(s): I34.0 - Nonrheumatic mitral (valve) insufficiency Status: Acute (6) Right-sided heart failure: Qualifiers: Heart failure chronicity: acute on chronic Qualified Code(s): I50.813 - Acute on chronic right heart failure Code(s): I50.810 - Right heart failure, unspecified Status: Acute (7) Diastolic dysfunction: Code(s): I51.89 - Other ill-defined heart diseases Status: Acute (8) Pulmonary hypertension: Code(s): I27.20 - Pulmonary hypertension, unspecified Status: Acute (9) Thalassemia: Qualifiers: Thalassemia type: unspecified type Qualified Code(s): D56.9 - Thalassemia, unspecified Code(s): D56.9 - Thalassemia, unspecified Status: Acute (10) Parkinson disease: Qualifiers: Dyskinesia presence: unspecified whether dyskinesia Fluctuating manifestations: unspecified whether manifestations fluctuate Qualified Code(s): G20.A1 - Parkinson's disease without dyskinesia, without mention of fluctuations Code(s): G20 - Parkinson's disease Status: Acute Plan 88 y/o presented with syncope most likely 2/2 over diuresed with laxis which is now on hold and there was also concern due to anemia however seen by GI does not suspect any GI issue since there is no sign of GI bleed. patient symptoms have improved and able to work with PT, patient clinical symptoms are improving patient will benefit going to SNF for rehab, we are waiting for placement for the patient. Syncope likely from overdiuresis and possible GI bleed patient was started recently on Lasix 40mg bid up from 20 for edema and patient is not longer edematous Hb 7.8, Iron panel and FOBT ordered Started on PPI and GI consulted cardiology eval noted Carotid doppler unremarkable Iron deficiency anemia Hb 6.9, transfuse 1 unit Isat 17 started on IV Iron 1000/1000mg, no further supplementation FOBT pending GI following monitor Parkinson's disease with oethostatic hypotension PAfib Contineu Amiodarone Not on AC, monitor Diastolic CHF Stopped Lasix 40mg bid continue 20mg daily per cards continue monitoring Depression continue home meds Right heart failure and pu, hypertension continue above diuresis as above Hypertension Titrate home meds with clinical course mitral valve regurgitation F/u with cardiology DVT prophylaxis on SCDs, No AC until GI bleed ruled out Subjective Date/time seen: 10/16/24 15:33 Interval history: 88 y/o presented with syncope most likely 2/2 over diuresed with laxis which is now on hold and there was also concern due to anemia however seen by GI does not suspect any GI issue since there is no sign of GI bleed. patient symptoms have improved and able to work with PT, patient clinical symptoms are improving patient will benefit going to SNF for rehab, we are waiting for placement for the patient. Review of Systems Review of Systems: 12 systems were reviewed and are negativ e except for as per HPI. Exam Narrative: Elderly frail Patient is comfortable, NAD HEENT: eyes are clear and none icteric LUNGS:CTA HEART: RR S1S2 ABD: BS+, Soft and nontender Lower extremities: no edema SKIN: nonjaundiced Neuro: grossly intact. Objective Data Vital Signs Vital Signs: Vital Signs - 24 hr 10/15/24 16:00 10/15/24 20:00 10/15/24 20:00 Temperature Pulse Rate 58 L 56 L Respiratory Rate Blood Pressure Pulse Oximetry Oxygen Delivery Room Air 10/15/24 22:00 10/16/24 00:00 10/16/24 04:00 Temperature 36.6 C Pulse Rate 53 L 59 L 59 L Respiratory Rate 16 Blood Pressure 114/56 L Pulse Oximetry 100 Oxygen Delivery 10/16/24 06:00 10/16/24 08:00 10/16/24 08:00 Temperature 36.5 C Pulse Rate 65 58 L Respiratory Rate 16 Blood Pressure 134/65 Pulse Oximetry 97 Oxygen Delivery Room Air 10/16/24 09:23 10/16/24 10:54 10/16/24 14:00 Temperature 36.6 C Pulse Rate 68 72 Respiratory Rate 16 Blood Pressure 136/75 Pulse Oximetry 96 Oxygen Delivery Room Air Intake/Output Intake/Output: Intake & Output 10/13/24 10/14/24 10/15/24 10/16/24 23:59 23:59 23:59 23:59 Intake Total 1180 2120 960 357 Output Total 801 1200 0 Balance 379 920 960 357 Meds/Results Medications: Active Medications Generic Name Dose Route Start Last Admin Trade Name Freq PRN Reason Stop Dose Admin Acetaminophen 650 mg 10/11/24 17:48 10/13/24 14:31 Acetaminophen 325 Mg Tablet PO 650 mg Q6H PRN Administration Mild Pain (1-3) or Fever Amiodarone HCl 100 mg 10/13/24 09:00 10/16/24 09:23 Amiodarone Hcl 100 Mg Tablet PO 100 mg DAILY LIZA Administration Carbidopa/Levodopa 3 tablet 10/12/24 08:00 10/16/24 12:49 Carbidopa/Levodopa 25/100 Mg Tablet PO 3 tablet 0800,1200,1700 LIZA Administration Carbidopa/Levodopa 2 tablet 10/11/24 21:05 10/15/24 20:13 Carbidopa/Levodopa 25/100 Mg Cr Tablet PO 2 tablet QHS LIZA Administration Docusate Sodium 100 mg 10/11/24 21:02 Docusate Sodium 100 Mg Capsule PO HS PRN constipation Furosemide 20 mg 10/13/24 09:00 10/16/24 09:22 Furosemide 20 Mg Tablet PO 20 mg DAILY LIZA Administration Gabapentin 300 mg 10/12/24 08:00 10/16/24 09:22 Gabapentin 300 Mg Capsule PO 300 mg BID@0800,1600 LIZA Administration Levothyroxine Sodium 50 mcg 10/12/24 06:30 10/16/24 05:54 Levothyroxine Sodium 50 Mcg Tablet PO 50 mcg DAILY@0630 LIZA Administration Mirtazapine 15 mg 10/11/24 21:00 10/15/24 20:13 Mirtazapine 15 Mg Tablet PO 15 mg QHS LIZA Administration Ondansetron HCl 4 mg 10/11/24 16:16 Ondansetron Inj 4 Mg/2 Ml Vial IV PUSH Q4H PRN Nausea Pantoprazole Sodium 40 mg 10/12/24 21:00 10/16/24 09:22 Pantoprazole Sodium Iv 40 Mg Vial IV PUSH 40 mg Q12HR LIZA Administration Tramadol HCl 50 mg 10/11/24 21:02 10/14/24 20:03 Tramadol Hcl (*Crx) 50 Mg Tablet PO 50 mg Q6H PRN Administration moderate pain Radiology Results: ITS Impressions Chest X-Ray 10/11/24 14:01 IMPRESSION: 1. Opacities in the left lower lung zone which appears to increase in part to small left pleural effusion with associated atelectasis and/or pneumonia. 2. Cardiomegaly. Head CT 10/11/24 14:59 IMPRESSION: 1. Normal aging brain. No fracture or acute intracranial process. Carotid Doppler Study 10/12/24 10:09 IMPRESSION: 1. Less than 50% stenosis in the right internal carotid artery by sonographic criteria. 2. Less than 50% stenosis in the left internal carotid artery by sonographic criteria. Labs Labs: Laboratory Results - last 24 hr 10/16/24 05:24 WBC 8.7 RBC 3.79 L Hgb 8.2 L Hct 26.7 L MCV 70.4 L MCH 21.6 L MCHC 30.7 L RDW 17.8 H Plt Count 389 H MPV 9.6 Sodium 134 L Potassium 4.5 Chloride 103 Carbon Dioxide 29 Anion Gap 2 L BUN 20 H Creatinine 0.77 Estim Creat Clear Calc 37 Estimated GFR > 60 Glucose 87 Calcium 8.8 Magnesium 2.2 Quality VTE Prophylaxis VTE prophylaxis: mechanical ordered
[2024-10-16] MEDS: PANTOPRAZOLE 40 MG TABLET PO (20:55)
[2024-10-16] MEDS: MIRTAZAPINE 15 MG TABLET PO (20:55)
[2024-10-16] MEDS: CARBIDOPA/LEVODOPA 25/100 MG CR TABLET 2 TABLET PO (20:55)
[2024-10-17 04:01] VITALS: BP 130/64; PULSE 61; RESP 16; TEMP 36.6; O2SAT 98
[2024-10-17] MEDS: LEVOTHYROXINE SODIUM 50 MCG TABLET PO (05:38)
[2024-10-17 05:47] LABS: Hematocrit 27.2 % (37.0-47.0); Hemoglobin 8.2 g/dL (12.0-15.0); Mean Corpuscular HGB Conc 30.1 g/dl (32-36); Mean Corpuscular Hemoglobin 21.2 pg (26-34); Mean Corpuscular Volume 70.5 fl (80-100); Mean Platelet Volume 9.3 fl (7.4-10.4); Platelet Count Result 406 k/mm3 (150-375); Red Blood Count 3.86 M/mm3 (4.2-5.4); Red Cell Distribution Width 17.7 % (11.5-14.5); White Blood Count 7.5 K/mm3 (4.5-10.0)
[2024-10-17 06:07] LABS: Anion Gap 2 mmol/L (4-12); Blood Urea Nitrogen 21 mg/dL (7-17); Calcium 8.7 mg/dL (8.4-10.2); Carbon Dioxide 31 mmol/L (22-30); Chloride 103 mmol/L (98-107); Estimated CRCL calculation 39 ml/min; Estimated Glomerular Filt Rate > 60; Glucose 90 mg/dL (65-110); Magnesium 2.2 mg/dL (1.6-2.3); Potassium 4.3 mmol/L (3.4-5.0); Sodium 136 mmol/L (137-145)
[2024-10-17 08:00] VITALS: BP 125/61; PULSE 61; RESP 16; TEMP 36.1; O2SAT 97
[2024-10-17 08:36] VITALS: BP 108/81; BP 132/62; PULSE 66; PULSE 67; RESP 16; TEMP 36.1; O2SAT 100; O2SAT 97
[2024-10-17 09:26] VITALS: PULSE 65
[2024-10-17] MEDS: FUROSEMIDE 20 MG TABLET PO (09:26)
[2024-10-17] MEDS: AMIODARONE HCL 100 MG TABLET PO (09:26)
[2024-10-17] MEDS: PANTOPRAZOLE 40 MG TABLET PO (09:26)
[2024-10-17] MEDS: GABAPENTIN 300 MG CAPSULE PO ×2 (09:27→16:10)
[2024-10-17] MEDS: CARBIDOPA/LEVODOPA 25/100 MG TABLET 3 TABLET PO ×3 (09:28→16:10)
[2024-10-17 14:00] VITALS: BP 126/64; PULSE 69; RESP 16; TEMP 36.3; O2SAT 98
--- NOTE | 2024-10-17 15:23 | P.DS_ITS ---
DS: Admitting Diagnosis Discharge Date 10/17/24 Admitting Diagnosis Fall, suspected syncope. DS: Discharge Diagnosis Discharge Diagnosis (1) Syncope: Code(s): R55 - Syncope and collapse Status: Acute (2) Bradycardia: Code(s): R00.1 - Bradycardia, unspecified Status: Acute (3) Renal failure: Code(s): N19 - Unspecified kidney failure Status: Acute (4) Paroxysmal atrial fibrillation: Code(s): I48.0 - Paroxysmal atrial fibrillation Status: Acute (5) Mitral valve regurgitation: Qualifiers: Cardiac valve disease etiology: nonrheumatic Qualified Code(s): I34.0 - Nonrheumatic mitral (valve) insufficiency Code(s): I34.0 - Nonrheumatic mitral (valve) insufficiency Status: Acute (6) Right-sided heart failure: Qualifiers: Heart failure chronicity: acute on chronic Qualified Code(s): I50.813 - Acute on chronic right heart failure Code(s): I50.810 - Right heart failure, unspecified Status: Acute (7) Diastolic dysfunction: Code(s): I51.89 - Other ill-defined heart diseases Status: Acute (8) Pulmonary hypertension: Code(s): I27.20 - Pulmonary hypertension, unspecified Status: Acute (9) Thalassemia: Qualifiers: Thalassemia type: unspecified type Qualified Code(s): D56.9 - Thalassemia, unspecified Code(s): D56.9 - Thalassemia, unspecified Status: Acute (10) Parkinson disease: Qualifiers: Dyskinesia presence: unspecified whether dyskinesia Fluctuating manifestations: unspecified whether manifestations fluctuate Qualified Code(s): G20.A1 - Parkinson's disease without dyskinesia, without mention of fluctuations Code(s): G20 - Parkinson's disease Status: Acute Plan 88 y/o presented with syncope most likely 2/2 over diuresed with laxis which is now on hold and there was also concern due to anemia however seen by GI does not suspect any GI issue since there is no sign of GI bleed. patient symptoms have improved and able to work with PT, patient clinical symptoms are improving patient will benefit going to SNF for rehab, we are waiting for placement for the patient. Syncope likely from overdiuresis and possible GI bleed patient was started recently on Lasix 40mg bid up from 20 for edema and patient is not longer edematous Hb 7.8, Iron panel and FOBT ordered Started on PPI and GI consulted cardiology eval noted Carotid doppler unremarkable Iron deficiency anemia Hb 6.9, transfuse 1 unit Isat 17 started on IV Iron 1000/1000mg, no further supplementation FOBT pending GI following monitor Parkinson's disease with oethostatic hypotension PAfib Contineu Amiodarone Not on AC, monitor Diastolic CHF Stopped Lasix 40mg bid continue 20mg daily per cards continue monitoring Depression continue home meds Right heart failure and pu, hypertension continue above diuresis as above Hypertension Titrate home meds with clinical course mitral valve regurgitation F/u with cardiology DVT prophylaxis on SCDs, No AC until GI bleed ruled out DS: Summary Hospital Course Hospital Course: 88 y/o presented with syncope most likely 2/2 over diuresed with Laxis which is now on hold and there was also concern due to anemia however seen by GI does not suspect any GI issue since there is no sign of GI bleed. patient symptoms have improved and able to work with PT, patient clinical symptoms are improving patient will benefit going to SNF for rehab, we are waiting for placement for the patient. today patient has SNF placement, will discharge patient today. Time Spent with Patient Time attestation: Total time spent providing and/or coordinating discharge services: Exam Narrative: Elderly frail Patient is comfortable, NAD HEENT: eyes are clear and none icteric LUNGS:CTA HEART: RR S1S2 ABD: BS+, Soft and nontender Lower extremities: no edema SKIN: nonjaundiced Neuro: grossly intact. DS: Data Data Completed and Pending Labs on day of discharge: Labs from last 24 hours 10/17/24 05:38 WBC 7.5 RBC 3.86 L Hgb 8.2 L Hct 27.2 L MCV 70.5 L MCH 21.2 L MCHC 30.1 L RDW 17.7 H Plt Count 406 H MPV 9.3 Sodium 136 L Potassium 4.3 Chloride 103 Carbon Dioxide 31 H Anion Gap 2 L BUN 21 H Creatinine 0.77 Estim Creat Clear Calc 39 Estimated GFR > 60 Glucose 90 Calcium 8.7 Magnesium 2.2 Discharge Plan Discharge Attending physician on discharge: Gt Patino Consulting providers: Talha Amos; Sanju Schaefer; Alen Ortega; Gail Cortes; Bakari Lott; Qasim Barnett; Mynor Riley; Cameron Jefferson Discharging Clinician: Ina Haji Patient Disposition: [facility] Senior Care/Asst Living Activity: as tolerated Diet: heart healthy Discharge Instructions: patient to follow up with her primary care provider as soon as possible. Patient Instructions: Antibiotic Form Patient Language: [place] Stand Alone Forms: General Discharge Information Discharge Medications: New pantoprazole [Protonix] 40 mg tablet,delayed release (DR/EC) 40 mg PO QAM Qty: 30 0RF Continued mirtazapine 15 mg tablet 15 mg PO QHS carbidopa-levodopa 50-200 mg tablet extended release 2 tablet PO QHS carbidopa-levodopa 25-100 mg tablet 1 tablet PO TID Rx Instructions: 3 tabs at 8:00 AM, 12:00 PM, and 5:00 PM. furosemide 40 mg tablet 40 mg PO BID Qty: 60 5RF levothyroxine 25 mcg capsule 50 mcg PO DAILY docusate sodium [Colace] 100 mg capsule 100 mg PO HS PRN (Reason: constipation) gabapentin 300 mg capsule 300 mg PO BID Rx Instructions: Administered 0800 and 1600. amiodarone 100 mg tablet 100 mg PO DAILY tramadol 50 mg tablet 50 mg PO Q6H PRN (Reason: pain) ondansetron 4 mg tablet,disintegrating 4 mg PO Q8H PRN (Reason: nausea and vomiting) (DME) Manual Wheelchair See Rx Instructions .Route .MEDSUPPLY Qty: 1 0RF Rx Instructions: As directed acetaminophen [Tylenol Extra Strength] 500 mg tablet 500 mg PO BID Rx Instructions: SCHEDULED Date of admission: 10/12/24 16:00 Primary Care Provider: Luis Almeida Admitting Provider: Gt Patino Attending physician on admission: Ina Haji Condition: Stable
== END 2024-10-17 16:30 | DRG 293 ==
LOC: ANHED 14:02 → ANHIMU 17:16 → ANH3MED 10-14 22:38
PROVIDERS: Internal Medicine; Physician Assistant; Admitting Provider Internal Medicine; Emergency Provider Emergency Medicine; PCP Internal Medicine; Visit Provider Family Medicine
DX: I11.0 Hypertensive heart disease with heart failure (principal); I50.813 Acute on chronic right heart failure; R55 Syncope and collapse; D56.9 Thalassemia, unspecified; D50.9 Iron deficiency anemia, unspecified; G20.A1 Parkinson's disease without dyskinesia, without mention of fluctuations; F02.80 Dementia in other diseases classified elsewhere, unspecified severity, without behavioral disturbance, psychotic disturbance, mood disturbance, and anxiety; F32.A Depression, unspecified; H91.90 Unspecified hearing loss, unspecified ear; I48.0 Paroxysmal atrial fibrillation; I27.20 Pulmonary hypertension, unspecified; I34.0 Nonrheumatic mitral (valve) insufficiency; N19 Unspecified kidney failure; R00.1 Bradycardia, unspecified; W19.XXXA Unspecified fall, initial encounter; Z85.038 Personal history of other malignant neoplasm of large intestine; Z85.828 Personal history of other malignant neoplasm of skin; Z90.49 Acquired absence of other specified parts of digestive tract
CPT/HCPCS: 36415; 36430; 70450; 71045; 80048; 80053; 81001; 82550; 82728; 83540; 83550; 83735; 83880; 84443; 84484; 85025; 85027; 85610; 85730; 86850; 86900; 86901; 86923; 93005; 93880; 96361; 96374; 97110; 97162; 97165; 97530; 97535; 99285; A9270; G0378; J1756; J2470; J7030; J7040; J7050; P9016